=== PATIENT | male | born 1955 | race Caucasian/White ===

== ENCOUNTER 2017-05-02 15:57 | Emergency (ER) | payer BC ==
[~2017-05-02] VITALS: Ht 172.7 cm; Wt 117.1 kg
[2017-05-02 16:06] VITALS: TEMP 36.7; O2SAT 97; Ht 172.7 cm; Wt 117.1 kg
[2017-05-02] MEDS ORDERED: MULT-506 PO (16:49)
[2017-05-02] MEDS ORDERED: LISI40TA PO (16:49)
[2017-05-02] MEDS ORDERED: HYDR12.56 PO (16:49)
[2017-05-02] MEDS ORDERED: COEN100C7 PO (16:49)
[2017-05-02] MEDS ORDERED: IBUP-103 PO (16:49)
[2017-05-02] MEDS ORDERED: CARV25TA2 PO (16:49)
[2017-05-02] MEDS ORDERED: ASPI-461 PO (16:49)
[2017-05-02] MEDS ORDERED: KETOROLAC TROMETHAMINE 60 MG/2 ML VIAL IM STA (17:11)
[2017-05-02] MEDS ORDERED: FLEXERIL HOME PACK 10 MG VIAL PO ONE (17:15)
[2017-05-02] MEDS ORDERED: OXYC1TAB3 PO (17:15)
[2017-05-02] MEDS ORDERED: OXYCODONE IR HOME PACK PO ONE (17:15)
[2017-05-02] MEDS ORDERED: CYCL10TA6 PO (17:15)
[2017-05-02 17:33] VITALS: BP 138/79; PULSE 70
--- NOTE | 2017-05-02 23:57 | EMERGENCY ROOM VISIT NOTE ---
History First contact with patient: 16:34 Chief Complaint: BACK PAIN Stated Complaint: LOWER BACK PAIN,AGGRIVATED PREVIOUS INJURY History of Present Illness The patient is a 62 year old male who presents to the Emergency Room with complaints of lower back pain that he believes was aggravated by recent increased strain on his back from moving things from his residence. He denies any lower extremity weakness, footdrop, saddle anesthesias or bladder/bowel incontinence. He denies any abrupt onset of pain. He also denies any pain extending into the buttocks or down the legs. The patient has taken Aleve and Advil without relief. The patient reports that they are currently living in a rental property that is used over the weekends for football season. The patient reports that they have to move their belongings to a different area, and believes that he may have strained his back this past weekend. The patient does report a prior history of bilateral total hip arthroplasties. He reports that he did have problems with his back after undergoing physical therapy. Otherwise he denies any other prior history of back injuries or lumbar radiculitis. He has had no prior history of epidural steroid injections. The patient moved to [place] one month ago from [place], and has not time to establish a local family doctor. He currently rates his discomfort a 3 out of 10. Review of Systems 10 system review was performed and was negative except for pertinent positives and negatives as indicated in history of present illness Past Medical/Surgical History Medical Problems: (1) Heart disease (2) Hypertension Surgical Problems: (1) History of bilateral hip replacements Family History Unremarkable Social History Smoking Status: Former Smoker Alcohol Use: occasionally Marital Status: Occupation Status: employed Current/Historical Medications Scheduled Aspirin (Aspirin), 81 MG PO DAILY Carvedilol (Coreg), 25 MG PO BID Coenzyme Q10 (Ubidecarenone) (Coq10), 100 MG PO DAILY Hydrochlorothiazide (Hctz), 1 CAP PO DAILY Lisinopril (Zestril), 40 MG PO DAILY Multivitamin (Multivitamin), 1 TAB PO DAILY Scheduled PRN Cyclobenzaprine Hcl (Flexeril), 10 MG PO TID PRN for spasm Ibuprofen Tab (Advil), 400-600 MG PO Q6H PRN for Pain Oxycodone Ir (Roxicodone Ir), 1 TAB PO Q4H PRN for Pain Physical Exam Vital Signs Date Time Temp Pulse Resp B/P (MAP) Pulse Ox O2 Delivery O2 Flow Rate FiO2 05/02/17 17:33 70 16 138/79 05/02/17 16:06 36.7 65 20 137/91 97 Room Air Pain Rating (0-10): 3.0 Physical Exam CONSTITUTIONAL: Healthy and well nourished. Alert and oriented X 3 with positive affect. Patient does not appear in any acute distress. HEENT: Normocephalic, atraumatic. Pupils equal, round and reactive. NECK: Full active range of motion without discomfort. MUSCULOSKELETAL: Examination shows mild tenderness of the lumbar paraspinous muscles without any focal tenderness through the central lumbar spine. Negative logroll. Negative sitting straight leg raise. Ankle plantar/ dorsiflexion strength is 5 out of 5 and symmetric bilaterally. Pedal pulses are intact. INTEGUMENTARY: No rash or other significant dermatologic conditions noted. NEUROLOGIC: No focal neurologic deficits noted. Lower extremity's are sensory intact with deep tendon reflexes 2+ and symmetric bilaterally. Medical Decision & Procedures Medications Administered Medications (Trade) Dose Ordered Sig/Jermain Route Start Time Stop Time Status Last Admin Dose Admin Ketorolac Tromethamine (Toradol Inj) 60 mg NOW STAT IM 05/02/17 17:11 05/02/17 17:12 DC 05/02/17 17:25 60 MG Cyclobenzaprine HCl (FLEXERIL 10MG Home Pack) 1 homepack UD ONCE PO 05/02/17 17:15 05/02/17 17:16 DC 05/02/17 17:15 1 HOMEPACK Oxycodone HCl (Roxicodone Immediate Rel 5MG Home Pack) 1 homepack UD ONCE PO 05/02/17 17:15 05/02/17 17:16 DC 05/02/17 17:15 1 HOMEPACK ED Course Patient history and physical exam were performed. Nurse's notes were reviewed. Vital signs were reviewed and were normal. Clinical exam and history are consistent with an acute lumbar strain. The patient was provided home packs and prescriptions for Flexeril and OxyIR. He was encouraged to alternate ibuprofen and Tylenol for baseline pain relief. The patient was provided contact information for [facility] and the [facility] medicine group at his request. The patient was instructed to return to the emergency department for progressively worsening pain or other concerning symptoms such as lower extremity weakness, saddle anesthesias or bladder/bowel difficulties. The patient was happy with plan of care, voice understanding of all discharge instructions, and rated his pain a 3 out of 10 at the time of discharge. He was administered Toradol IM as he drove here and wanted to be able to drive home. Medical Decision [place] Drug Monitoring Program Search Results: patient reviewed within database, no issues identified Medication Reconcilliation Current Medication List: was personally reviewed by me Blood Pressure Screening Patient's blood pressure: Normal blood pressure Impression Primary Impression: Acute lumbar myofascial strain Departure Information Dispostion Home / Self-Care Condition GOOD Prescriptions Oxycodone Ir (Roxicodone Ir) 5 Mg Tab 1 TAB PO Q4H Y for Pain, #15 TAB For Initial Treatment Prov: Daniel Montgomery PA 05/02/17 Cyclobenzaprine Hcl (FLEXERIL) 10 Mg Tab 10 MG PO TID Y for spasm, #15 TAB Prov: Daniel Montgomery PA 05/02/17 Referrals Dontae Huerta D.O. Pro,Felipe Mata M.D. Forms HOME CARE DOCUMENTATION FORM, IMPORTANT VISIT INFORMATION Patient Instructions My [facility] [employer] Additional Instructions Intermittently apply heat to back. Avoid sitting for long periods of time or heavy lifting. Ibuprofen 800 mg and/or Tylenol 1000 mg every 8 hours. You may also alternate these medications for more effective pain relief: Ibuprofen --4 HRS--> Tylenol --4 HRS--> ibuprofen --4 HRS--> Tylenol .... Flexeril if needed for muscle spasm. OxyIR if needed for worse pain. Do not drink alcohol or drive while taking these medications. Call either the [facility] (Dr. Gonzales) or [facility] (Dr. Huerta) to schedule a follow-up appointment. Tell the office that you were referred from the emergency department and are new to the area. Problem Qualifiers Primary Impression: Acute lumbar myofascial strain Encounter type: initial encounter Qualified Codes: S39.012A - Strain of muscle, fascia and tendon of lower back, initial encounter
== END 2017-05-02 17:34 | disposition home or self-care (01) ==
LOC: C.EDB 15:58 → C.EDD 17:34
DX: S39.012A Strain of muscle, fascia and tendon of lower back, initial encounter (principal); X58.XXXA Exposure to other specified factors, initial encounter; I10 Essential (primary) hypertension; I51.9 Heart disease, unspecified; Z87.891 Personal history of nicotine dependence; Z79.82 Long term (current) use of aspirin

== ENCOUNTER → 2017-10-25 | Day surgery (SDC) | payer OTHER ==
[2017-10-15 08:07] VITALS: Ht 172.7 cm; Wt 122.7 kg
[~2017-10-25] VITALS: Ht 172.7 cm; Wt 122.7 kg
[~2017-10-25] MED LIST: ASPCH81X PO; CARV25TA2 PO; COEN100C7 PO; FENTANYL CITRATE INJ 50 MCG/1 ML 2 ML VIAL ONE; HYDR25TA4 PO; LIDOCAINE HCL 2% 2 ML VIAL (20MG/ML) ONE; LISI40TA PO; MIDAZOLAM HCL 1 MG/ML 2ML VIAL ONE; MULT-506 PO; OMEG10007 PO; PROPOFOL IV EMULSION 10 MG/ML 20 ML VIAL IV ONE; PRVC10 PO
--- NOTE | 2017-10-25 12:50 | Endo History and Physical ---
History & Physical Date of Service: Oct 25, 2017. Chief Complaint: Family history of colon cancer. Referring Physician: Dr. Harlan Altman History of Present Illness For colonoscopy Past Surgical History Hx Cardiac Surgery: No Hx Internal Defibrillator: No Hx Pacemaker: No Hx Abdominal Surgery: No Hx of Implantable Prosthesis: No Hx Post-Op Nausea and Vomiting: No Hx Cancer Surgery: No Hx Thoracic Surgery: No Hx Orthopedic: Yes (RT/LEFT ROSAURA, LEFT ANKLE FX REPAIR) Hx Urinary Tract Surgery: No Family History Colon CA Social History Smoking Status: Former Smoker Hx Substance Use: No Hx Alcohol Use: Yes (OCCASIONALLY) Allergies Coded Allergies: No Known Allergies (Verified , 10/25/17) Current Medications Reported Home Medications Medications Dose Route/Sig Max Daily Dose Days Date Category [place]-3 (Fish Oil) 1 Ea Cap 1 Cap PO DAILY 10/15/17 Reported Aspirin Chewable (Aspirin) 81 Mg Chew 81 Mg PO DAILY 10/15/17 Reported Pravastatin Sodium (Pravastatin Sod) 10 Mg Tab 1 Tab PO HS 10/15/17 Reported Zestril (Lisinopril) 40 Mg Tab 40 Mg PO HS 10/15/17 Reported Hctz (Hydrochlorothiazide) 25 Mg Tab 25 Mg PO QAM 10/15/17 Reported Coreg (Carvedilol) 25 Mg Tab 25 Mg PO BID 10/15/17 Reported Multivitamin (Multivitamins) Tab 1 Tab PO DAILY 05/02/17 Reported Coq10 (Coenzyme Q10 (Ubidecarenone)) 100 Mg Cap 100 Mg PO DAILY 05/02/17 Reported Vital Signs Weight (Kilograms): 122.73 Height (Feet): 5 Height (Inches): 8 Date Time Temp Pulse Resp B/P (MAP) Pulse Ox O2 Delivery O2 Flow Rate FiO2 10/25/17 12:40 36.6 65 16 127/83 (98) 97 Room Air Physical Exam General Appearance: + obese Respiratory/Chest: Respiratory effort: no dyspnea Cardiovascular: Heart Auscultation: RRR Abdomen: Inspection & Palpation: soft Assessment and Plan Fam Hx colon cancer for colonoscopy
--- NOTE | 2017-10-25 13:21 | Discharge Instructions ---
Endoscopy Patient Instructions Date / Procedure(s) Performed Oct 25, 2017. Colonoscopy Allergy Information Coded Allergies: No Known Allergies (Verified , 10/25/17) Discharge Date / Findings Oct 25, 2017. Diverticulosis, hemorrhoids Medication Instructions Stopped Medication(s): Patient was told to stop his fish oil. Restart Stopped Medication(s): resume meds Reported Home Medications Medications Dose Route/Sig Max Daily Dose Days Date Category [place]-3 (Fish Oil) 1 Ea Cap 1 Cap PO DAILY 10/15/17 Reported Aspirin Chewable (Aspirin) 81 Mg Chew 81 Mg PO DAILY 10/15/17 Reported Pravastatin Sodium (Pravastatin Sod) 10 Mg Tab 1 Tab PO HS 10/15/17 Reported Zestril (Lisinopril) 40 Mg Tab 40 Mg PO HS 10/15/17 Reported Hctz (Hydrochlorothiazide) 25 Mg Tab 25 Mg PO QAM 10/15/17 Reported Coreg (Carvedilol) 25 Mg Tab 25 Mg PO BID 10/15/17 Reported Multivitamin (Multivitamins) Tab 1 Tab PO DAILY 05/02/17 Reported Coq10 (Coenzyme Q10 (Ubidecarenone)) 100 Mg Cap 100 Mg PO DAILY 05/02/17 Reported Provider Instructions Activity Restrictions - No exercising or heavy lifting for 24 hours. - Do not drink alcohol the day of the procedure. - Do not drive a car or operate machinery until the day after the procedure. - Do not make any important decisions or sign important papers in 24 hours after the procedure. Following Day: - Return to full activity which may include returning to work/school. Diet Start your diet with liquids and light foods (jello, soup, juice, toast). Then eat your usual diet if not nauseated. Treatment For Common After Affects For mild abdominal pain, bloating, or excessive gas: - Rest - Eat lightly - Lie on right side Follow-Up Information Follow-up with Dr. Harlan Altman as scheduled Anesthesia Information What You Should Know You have had a procedure that required some medicine to reduce anxiety and discomfort. This treatment is called moderate sedation. After receiving the treatment, you may be sleepy, but you will be able to breathe on your own. The effects of the treatment may last for several hours. Follow these instructions along with Activity/Diet recommendations noted above: * Do NOT do anything where dizziness or clumsiness would be dangerous. * Rest quietly at home today, then you can be up and about tomorrow. * Have a responsible person stay with you the rest of today. * You may have had an I.V. today. If so, you may take the dressing off later today. Recommendations Call your doctor if: * Trouble breathing * Continuous vomiting for more than 24 hours * Temperature above 101 degrees * Severe abdominal pain or bloating * Pain not relieved by pain medicine ordered * There is increased drainage or redness from any incision * A large amount of rectal bleeding greater than 2-3 tablespoons. (If you had a polyp/s removed or have hemorrhoids, a small amount of blood - from the rectum is to be expected.) * You have any unanswered questions or concerns. IN THE EVENT OF A SERIOUS EMERGENCY, GO TO THE NEAREST EMERGENCY ROOM Your discharge instructions were prepared by provider Jose Cazares. Patient Instructions Signature Page Sharad James Patient (or Guardian) Signature/Date: I have read and understand the instructions given to me by my caregivers. Caregiver/RN/Doctor Signature/Date: The above-named patient and/or guardian has received patient instructions on this date. + Original Patient Signature Page (only) stays with chart. Please make copy for patient.
--- NOTE | 2017-10-25 13:24 | GI REPORT ---
Procedure Date: 10/25/2017 1:01 PM Procedure: Colonoscopy Indications: Family history of colon cancer in a first-degree relative Medicines: Fentanyl 100 micrograms IV, Midazolam 2 mg IV, Propofol total dose 80 mg IV, Lidocaine 40 mg IV Complications: No immediate complications. Estimated Blood Loss: Estimated blood loss: none. Procedure: Pre-Anesthesia Assessment: - Prior to the procedure, a History and Physical was performed, and patient medications, allergies and sensitivities were reviewed. The patient's tolerance of previous anesthesia was reviewed. - The risks and benefits of the procedure and the sedation options and risks were discussed with the patient. All questions were answered and informed consent was obtained. After I obtained informed consent, the scope was passed under direct vision. Throughout the procedure, the patient's blood pressure, pulse, and oxygen saturations were monitored continuously. The scope was introduced through the anus and advanced to the cecum, identified by appendiceal orifice and ileocecal valve. The colonoscopy was performed without difficulty. The patient tolerated the procedure well. The quality of the bowel preparation was good. Findings: Non-bleeding internal hemorrhoids were found during endoscopy. The hemorrhoids were mild. Many diverticula were found in the sigmoid colon, transverse colon and ascending colon. Impression: - Non-bleeding internal hemorrhoids. - Diverticulosis in the sigmoid colon, in the transverse colon and in the ascending colon. - No specimens collected. Recommendation: - Discharge patient to home (ambulatory). - Continue present medications. - Repeat colonoscopy in 5 years for surveillance. - Return to primary care physician PRN. Jose Cazares M.D. Jose Cazares MD 10/25/2017 1:24:12 PM This report has been signed electronically. Note Initiated On: 10/25/2017 1:01 PM I attest to the content of the Intraoperative Record and orders documented therein, exceptions below
--- NOTE | 2017-10-25 13:58 | Anesthesiology Progress Note ---
Anesthesia Post Op Note Date & Time Oct 25, 2017 at 13:58 Vital Signs Pain Intensity: 0 Vital Signs Past 12 Hours Date Time Temp Pulse Resp B/P (MAP) Pulse Ox O2 Delivery O2 Flow Rate FiO2 10/25/17 13:42 65 18 107/67 (80) 96 Room Air 10/25/17 13:26 69 18 117/77 (90) 95 Room Air 10/25/17 12:40 36.6 65 16 127/83 (98) 97 Room Air Notes Mental Status: alert / awake / arousable, participated in evaluation Pt Amnestic to Procedure: Yes Nausea / Vomiting: adequately controlled Pain: adequately controlled Airway Patency, RR, SpO2: stable & adequate BP & HR: stable & adequate Hydration State: stable & adequate Anesthetic Complications: no major complications apparent
[2017-10-25 14:00] VITALS: BP 121/69; PULSE 61; O2SAT 96
== END | disposition home or self-care (01) ==
LOC: C.GI 12:18
PROVIDERS: ATTEND Internal Medicine Gastroenterology
DX: Z12.11 Encounter for screening for malignant neoplasm of colon (principal); K57.30 Diverticulosis of large intestine without perforation or abscess without bleeding; K64.8 Other hemorrhoids; Z80.0 Family history of malignant neoplasm of digestive organs; Z96.643 Presence of artificial hip joint, bilateral; Z87.891 Personal history of nicotine dependence; Z79.82 Long term (current) use of aspirin; E66.9 Obesity, unspecified

== ENCOUNTER 2017-12-17 21:39 | Emergency (ER) | payer OTHER ==
[~2017-12-17] VITALS: Ht 172.7 cm; Wt 124.5 kg
[~2017-12-17 21:39] MED LIST changes: -FENTANYL CITRATE INJ 50 MCG/1 ML 2 ML VIAL ONE; -LIDOCAINE HCL 2% 2 ML VIAL (20MG/ML) ONE; -MIDAZOLAM HCL 1 MG/ML 2ML VIAL ONE; -PROPOFOL IV EMULSION 10 MG/ML 20 ML VIAL IV ONE
[2017-12-17 21:45] VITALS: TEMP 36.8; Ht 172.7 cm; Wt 124.5 kg
[2017-12-17] MEDS ORDERED: KETOROLAC TROMETHAMINE 60 MG/2 ML VIAL IM STA (22:24)
[2017-12-17] MEDS ORDERED: CYCL10TA6 PO (22:28)
[2017-12-17] MEDS ORDERED: TRAM-10 PO (22:28)
[2017-12-17] MEDS ORDERED: FLEXERIL HOME PACK 10 MG VIAL PO ONE (22:30)
[2017-12-17] MEDS ORDERED: TRAMADOL HCL 50 MG HOME PACK PO ONE (22:30)
[2017-12-17 22:53] VITALS: BP 141/87; PULSE 85; O2SAT 95
--- NOTE | 2017-12-18 00:42 | EMERGENCY ROOM VISIT NOTE ---
History First contact with patient: 22:16 Chief Complaint: BACK PAIN Stated Complaint: BACK PAIN- LOWER LEFT History of Present Illness The patient is a 62 year old male who presents to the Emergency Room with complaints of left middle to lower back pain. The patient reports a prior history of back strains, and injured his back while exercising last evening. The patient denies any recent falls. He currently denies any pain extending into the buttocks or down the legs. He also denies any bladder or bowel difficulties, saddle anesthesias or lower extremity weakness. He rates his discomfort an 8 out of 10. Review of Systems 10 system review was performed and was negative except for pertinent positives and negatives as indicated in history of present illness Past Medical/Surgical History Medical Problems: (1) Heart disease (2) Hypertension Surgical Problems: (1) History of bilateral hip replacements Family History FH: diabetes mellitus FH: heart disease FH: hypertension Social History Smoking Status: Never Smoker Alcohol Use: occasionally Marital Status: Occupation Status: employed Current/Historical Medications Scheduled Aspirin (Aspirin Chewable), 81 MG PO DAILY Carvedilol (Coreg), 25 MG PO BID Coenzyme Q10 (Ubidecarenone) (Coq10), 100 MG PO DAILY Fish Oil ([place]-3), 1 CAP PO DAILY Hydrochlorothiazide (Hctz), 25 MG PO QAM Lisinopril (Zestril), 40 MG PO HS Multivitamin (Multivitamin), 1 TAB PO DAILY Pravastatin Sod (Pravastatin Sodium), 1 TAB PO HS Scheduled PRN Cyclobenzaprine Hcl (Flexeril), 10 MG PO TID PRN for spasm Tramadol (Ultram), 1-2 TAB PO Q4H PRN for Pain Physical Exam Vital Signs Date Time Temp Pulse Resp B/P (MAP) Pulse Ox O2 Delivery O2 Flow Rate FiO2 12/17/17 22:53 85 20 141/87 95 Room Air 12/17/17 21:45 36.8 89 18 142/95 93 Room Air Physical Exam CONSTITUTIONAL: Healthy and well nourished. Alert and oriented X 3 with positive affect. Patient appears in mild discomfort. HEENT: Normocephalic, atraumatic. Pupils equal, round and reactive. NECK: Full active range of motion without discomfort. RESPIRATORY: Clear to auscultation bilaterally with no wheezing, crackles, rhonchi or stridor. CARDIOVASCULAR: Regular rate and rhythm with no murmurs, rubs or gallops. GASTROINTESTINAL: Bowel sounds present in all quadrants. Soft and nontender to palpation. MUSCULOSKELETAL: Examination shows tenderness to palpation through the lower thoracic and upper lumbar left paraspinous muscle. No obvious palpable spasm. Patient has no other tenderness to palpation through the central thoracolumbar spine or right sided musculature. No tenderness to palpation of the ribs. INTEGUMENTARY: No rash or other significant dermatologic conditions noted. NEUROLOGIC: No focal neurologic deficits noted. Medical Decision & Procedures Medications Administered Medications (Trade) Dose Ordered Sig/Jermain Route Start Time Stop Time Status Last Admin Dose Admin Ketorolac Tromethamine (Toradol Inj) 60 mg NOW STAT IM 12/17/17 22:24 12/17/17 22:26 DC 12/17/17 22:43 60 MG Cyclobenzaprine HCl (FLEXERIL 10MG Home Pack) 1 homepack UD ONCE PO 12/17/17 22:30 12/17/17 22:31 DC 12/17/17 22:42 1 HOMEPACK Tramadol HCl (Ultram Home Pack) 1 homepack UD ONCE PO 12/17/17 22:30 12/17/17 22:31 DC 12/17/17 22:42 1 HOMEPACK ED Course Patient history and physical exam were performed. Nurse's notes were reviewed. Vital signs were reviewed, showing an elevated blood pressure 142/95. History and physical exam are most consistent with a back strain. The patient was encouraged to avoid sitting for long periods of time or other significant physical activities. He was encouraged to intermittently apply ice to the back , then moist heat as needed. He was encouraged alternate ibuprofen and Tylenol for baseline pain relief. The patient was dispensed home packs and provided prescriptions for Ultram and Flexeril. The patient denies any prior history of seizures. He was encouraged to follow-up with his PCP if symptoms are not improving within the next few days. Return to the emergency department for any significantly worsening pain, saddle anesthesias, urinary/bowel complications or foot drop. The patient was administered Toradol 60 mg IM as he drove here. The patient was happy with plan of care, voiced understanding of all discharge instructions, and rated his discomfort a 6 out of 10 at the time of discharge, which was shortly after his IM Toradol. Medical Decision [place] Drug Monitoring [place] Search Results: patient reviewed within database, no issues identified Medication Reconcilliation Current Medication List: was personally reviewed by me Blood Pressure Screening Patient's blood pressure: Elevated blood pressure Blood pressure disposition: Elevated BP felt to be situational, Did not require urgent referral Impression Primary Impression: Acute lumbar myofascial strain Departure Information Dispostion Home / Self-Care Condition GOOD Prescriptions Tramadol (Ultram) 50 Mg Tab 1-2 TAB PO Q4H Y for Pain, #15 TAB For Initial Treatment Prov: Daniel Montgomery PA 12/17/17 Cyclobenzaprine Hcl (FLEXERIL) 10 Mg Tab 10 MG PO TID Y for spasm, #15 TAB Prov: Daniel Montgomery PA 12/17/17 Referrals Harlan Altman M.D. (PCP) Forms HOME CARE DOCUMENTATION FORM, IMPORTANT VISIT INFORMATION Patient Instructions My [facility] Additional Instructions Intermittently apply ice for the next 24 hours, then moist heat as needed. Ibuprofen 800 mg and/or Tylenol 1000 mg every 8 hours. You may also alternate these medications for more effective pain relief: Ibuprofen --4 HRS--> Tylenol --4 HRS--> ibuprofen --4 HRS--> Tylenol .... Take Flexeril as needed for muscle spasms. Take Ultram if needed for additional pain relief. Do not drink alcohol or drive while taking these medications. Follow-up with your family doctor if symptoms are not improving within the next 3-5 days. Return to the emergency department for any significantly worsening pain, bladder /bowel complications, numbness of the inner thighs/pubic region or profound lower extremity weakness. Problem Qualifiers Primary Impression: Acute lumbar myofascial strain Encounter type: initial encounter Qualified Codes: S39.012A - Strain of muscle, fascia and tendon of lower back, initial encounter
== END 2017-12-17 22:48 | disposition home or self-care (01) ==
LOC: C.EDB 21:40 → C.EDD 22:48
DX: S39.012A Strain of muscle, fascia and tendon of lower back, initial encounter (principal); X58.XXXA Exposure to other specified factors, initial encounter; I11.9 Hypertensive heart disease without heart failure; Z79.82 Long term (current) use of aspirin

== ENCOUNTER 2019-04-26 08:11 | Observation (INO) ==
--- NOTE | 2019-04-26 09:25 | Pre Anesthesia Assessment ---
Date of Service April 26, 2019 Pre Sedation Assessment Vital Signs Temp Pulse Resp BP Pulse Ox 04/26/19 08:20 36.6 C 66 20 123/86 98 Cardiovascular RRR, no murmur, no edema Respiratory normal respiratory effort, lungs clear to auscultation Pre-Sedation Airway Assessment Smoking Status: Former smoker Hx Sleep Apnea: Yes Short, Thick Neck: No Thyromental Distance: > or= 3.5 Finger Breadths Oral Cavity: + WNL Mallampati Class: IV ASA: ASA3 NPO Status Date of Last Intake of Fluids: 04/26/19 Time of Last Intake of Fluids: 23:00 Date of Last Intake of Solid Food: 04/25/19 Time of Last Intake of Solid Foods: 20:00 Procedure Planning Contraindications for Sedation: none Current Medications Reviewed: Yes Notes The planned sedation has been discussed with the patient. Informed Consent was obtained. I have identified the patient, determined the appropriateness of sedation and have assessed the patient immediately prior to the procedure. All medicine(s) and interventions are by my order.
--- NOTE | 2019-04-26 09:30 | History & Physical Report ---
Date of Service April 26, 2019 Assessment & Plan (1) NICM (nonischemic cardiomyopathy): pt for elective ICD; rediscussed the procedure with the patient today with the possible risks such as heart attach, stroke, , arrhythmia, injury to lungs, heart chambers and blood vessels, infection and bleeding. consent obtained (2) JOSE DE JESUS (obstructive sleep apnea): (3) Chronic systolic congestive heart failure, NYHA class 2: (4) Morbid obesity: History of Present Illness Chief Complaint: pt presents for elective ICD implant due to NICM Primary Care Provider: Felipe Rush MD Pt denies any fevers, chills, chest pains, SOB, palpitations Allergies Allergy/AdvReac Type Severity Reaction Status Date / Time No Known Allergies Allergy Verified 10/25/17 12:27 Home Medications Home Medications Medication Instructions Recorded Confirmed Type COENZYME Q10 (UBIDECARENONE) 100 mg PO DAILY #0 05/02/17 04/26/19 History (COQ10) Multivitamin 1 tab PO DAILY #0 tab 05/02/17 04/26/19 History ASPIRIN (ASPIRIN CHEWABLE) 81 mg PO DAILY #0 10/15/17 04/26/19 History CARVEDILOL (COREG) 25 mg PO BID #0 tab 10/15/17 04/26/19 History Fish Oil (Caspar-3) 1 cap PO DAILY #0 cap 10/15/17 04/26/19 History HYDROCHLOROTHIAZIDE (HCTZ) 12.5 mg PO QAM #0 tab 10/15/17 04/26/19 History sacubitril-valsartan [Entresto] 1 tab PO BID 04/26/19 04/26/19 History spironolactone 25 mg PO DAILY 04/26/19 04/26/19 History Past Med/Surg History Medical History CAD (coronary artery disease) FH: bilateral hip replacements HTN (hypertension) Hyperlipidemia NICM (nonischemic cardiomyopathy) JOSE DE JESUS (obstructive sleep apnea) Family History Mother Stroke Father Coronary heart disease Social History Current Living Situation: Spouse Feels Safe at Home: Yes Safety Concerns: Feels Safe At This Time Smoking Status: Former smoker Hx Alcohol Use: Yes Alcohol type: beer Hx Substance Use: No Review of Systems All systems reviewed & are unremarkable except as noted in HPI & below Physical Exam Physical Exam: aaox3, NAD NC/AT, EOMI Supple No JVD Nrl S1/S2, No murmur CTA b/l no w/r/r soft nt/nd no LE edema b/l skin intact no focal deficits ENMT: Mallampati Class: IV Respiratory: normal respiratory effort, lungs clear to auscultation Cardiovascular: RRR, no murmur, no edema Results & Data Vital Signs (Past 12 Hours) Vital Signs Temp Pulse Resp BP Pulse Ox 04/26/19 08:20 36.6 C 66 20 123/86 98
[2019-04-26] MEDS ORDERED: BACITRACIN INJ 50,000 UNIT VIAL ONE (09:32)
[2019-04-26] MEDS ORDERED: BUPIVACAINE 0.5 % 5 MG/1 ML PF 10ML VIAL ONE (09:37)
[2019-04-26] MEDS ORDERED: LIDOCAINE HCL 1% 20 ML VIAL ONE (09:37)
[2019-04-26] MEDS ORDERED: BUPIVACAINE 0.25% 30 ML VIAL ONE (09:38)
[2019-04-26] MEDS ORDERED: MIDAZOLAM HCL 5 MG/ML 1 ML VIAL ONE (09:56)
[2019-04-26] MEDS ORDERED: CEFAZOLIN 250 MG/ML 1 GM VIAL ONE (09:56)
[2019-04-26] MEDS ORDERED: fentaNYL citrate 100 MCG/2 ML VIAL ONE ×2 (09:56→10:42)
[2019-04-26] MEDS ORDERED: ACETAMINOPHEN 325 MG TAB PO PRN (11:21)
--- NOTE | 2019-04-26 11:21 | Operative Report ---
Post Operative Report Pre & Post Diagnosis Pre: NICM Post: Same Operation Date: 04/26/19 09:00 <No data on this case meets the specified criteria> Procedure Operation Date: 04/26/19 09:00 Actual Procedures p ICD Insertion Single or Dual - Eva Guevara DO Surgeon vEa Guevara, Nursing Home Assistant Administrator none Estimated Blood Loss 30 Findings Consistent with Post-Op Diagnosis Specimens none Description of Procedure see official report I attest to the content of the Intraoperative Record and any orders documented therein. Any exceptions are noted below.
--- NOTE | 2019-04-26 11:21 | Post Anesthesia Assessment ---
Date of Service April 26, 2019 Post Sedation Assessment Vital Signs Temp Pulse Resp BP Pulse Ox 04/26/19 08:20 36.6 C 66 20 123/86 98 Recovery Score Activity: Moves 4 extremities Respiration: Deep Breath/Cough Circulation: +/-20% PreAnes Value Consciousness: Fully Awake Oxygen Saturation: > 92% On Room Air Discharge Sedation Level of Care: Fast Track Phase II Post Sedation Plan On clinical assessment, the patient appears to have tolerated the sedation without complications. Patient is recovering as anticipated. Patient will continue to be monitored by nursing and may be discharged when sedation discharge criteria are met per below protocol. Upon Completions of procedure and additional 15 minutes continue every 5 minute vital signs and the P.A.R. score; then discharge to a Phase I or [facility] per the following guidelines: * Discharge Patient to appropriate Phase II area if PAR is 8 or greater or return to pre- procedure baseline. The post - procedure orders will be as directed. * If PAR score is less than 8 or not return to pre-procedure baseline then patient will follow Phase I monitoring till PAR is reached for Phase II. The Phase I may be done in procedure room or may call to secure a Phase I area. * If naloxone or flumazenil are used for reversal, hold in Phase I for continued monitoring from when last reversal dose was given for a minimum of 60 minutes or longer pending the nurse and/or physician discretion of patient condition before discharge to Phase II. Please call the Sedation Physician to re-evaluate and complete post-note for discharge to Phase II area. Do NOT discharge from procedure sedation or Phase 1 until post- sedation evaluation note is complete by procedure /sedation MD Sedation Discharge Instructions to be given to the patient at discharge to home.
--- NOTE | 2019-04-26 11:28 | Discharge Summary ---
Date of Service April 26, 2019 Admission HPI Per Admitting Provider Pt denies any fevers, chills, chest pains, SOB, palpitations Admission Exam Per Admitting Provider aaox3, NAD NC/AT, EOMI Supple No JVD Nrl S1/S2, No murmur CTA b/l no w/r/r soft nt/nd no LE edema b/l skin intact no focal deficits Principal Diagnosis NICM s/p ICD implant Discharge Exam aaox3, NAD NC/AT, EOMI Supple No JVD Nrl S1/S2, No murmur CTA b/l no w/r/r soft nt/nd no LE edema b/l skin intact no focal deficits left pectoral incision intact, no hematoma mild ecchymosis ENMT Mallampati Class: IV Respiratory normal respiratory effort, lungs clear to auscultation Cardiovascular RRR, no murmur, no edema Discharge Data Allergies Allergy/AdvReac Type Severity Reaction Status Date / Time No Known Allergies Allergy Verified 10/25/17 12:27 Procedures Performed Operation Date: 04/26/19 09:00 Actual Procedures p ICD Insertion Single or Dual - Eva Guevara DO Ordered Studies CXR: No PTX, lead in position ECG: SR ICD Interrogation 04/27/2019:Normal function and stable lead testing since implant 04/26/19 06:30 EP Lab Images for PACS ONCE 04/26/19 09:38 CL Cath Imgs for PACS use only Stat CL Cath Imgs for PACS use only Stat Hospital Course (1) NICM (nonischemic cardiomyopathy): pt admitted for elective ICD due to NICM. He underwent procedure without any complications; monitored overnight and discharged home. (2) JOSE DE JESUS (obstructive sleep apnea): (3) Chronic systolic congestive heart failure, NYHA class 2: (4) Morbid obesity: Total Time Total Time Spent Total Time Spent (In Minutes): 30 Total Time Includes: Examination of the Patient, Discharge Planning, Medication Reconciliation and Other Discharge Plan Discharge Items Patient Disposition: Home - Self-Care Reason For Visit: NICM Discharge Diagnosis: NICM s/p ICD Condition: Good Discharge Goals: Improve function Activity: As commented below Activity Comment: do not lift the left elbow over the left shoulder for 1 month Lifting: No more than 10 pounds Lifting Comment: do not lift more than 10 pounds with the left arm for 2 weeks Bathing: Keep incision dry Bathing Comment: can shower saturday 04/28; let water run over the incision do not scrub it Sexual Activity: After two weeks Driving/Machine Use: Resume 1 day after discharge Non-emergency contact: Wind Up Operator Call non-emergency contact if: you have any medication questions Follow-up/Referrals: Felipe Rush MD [Primary Care Provider] - Diet: Heart Healthy Addtl Provider Instructions: device and wound check at [facility] 05/04 at 9am if you notice any swelling or concerns at the incision site call my office immediately Prescriptions: Continued COENZYME Q10 (UBIDECARENONE) (COQ10) 100 MG capsule 100 mg PO DAILY Qty: 0 RF: 0 Multivitamin tablet 1 tab PO DAILY Qty: 0 RF: 0 ASPIRIN (ASPIRIN CHEWABLE) 81 MG CHEWABLE TAB 81 mg PO DAILY Qty: 0 RF: 0 CARVEDILOL (COREG) 25 MG tablet 25 mg PO BID Qty: 0 RF: 0 Fish Oil (Depue-3) 1 EA capsule 1 cap PO DAILY Qty: 0 RF: 0 HYDROCHLOROTHIAZIDE (HCTZ) 25 MG tablet 12.5 mg PO QAM Qty: 0 RF: 0 Entresto 24-26 mg Tablet 1 tab PO BID RF: 0 spironolactone 25 mg Tablet 25 mg PO DAILY RF: 0 Stand-Alone Forms: [facility] Discharge Orders: Discharge Order (Routine); Ordered 04/27/19 Ordered By: Eva Guevara Admission Data Admit Date/Time: 04/26/19 10:34 Attending Provider: Eva Guevara Admit Provider: Eva Guevara Primary Care Provider: Felipe Rush Service: Telemetry
--- NOTE | 2019-04-26 14:30 | Operative Report ---
DATE OF OPERATION: 04/26/2019 PREOPERATIVE DIAGNOSES: Nonischemic cardiomyopathy. POSTOPERATIVE DIAGNOSIS: Nonischemic cardiomyopathy. PROCEDURE: Single chamber rate responsive implantable cardiac defibrillator under fluoroscopic guidance. SURGEON: Eva Guevara DO THERMAL MOLDER: None. ANESTHESIA: Monitored conscious sedation administered under my supervision by Shasta Bueno. Start time 10:05, end time 11:18. Total of 5 mg of Versed, 175 mcg of fentanyl. INTRAVENOUS FLUIDS: 35 mL. URINE OUTPUT: Not applicable. SPECIMENS: None. FINDINGS: See below. DRAINS: None. ANTIBIOTICS: 3 grams of Ancef. INDICATIONS: This is a 64-year-old gentleman with past medical history for nonischemic cardiomyopathy, initially diagnosed in 2012 in [place] with an ejection fraction of 15%. It did improve reportedly to 45% in 2013, but then was back down to 35% in 2017 and no further to 25% in 2019, statin intolerance, morbid obesity, obstructive sleep apnea probably not on any sleep BiPAP, chronic systolic heart failure, [place] Heart Association class 2, sinus bradycardia, asymptomatic, so no RA lead at this time. CONSENT: Consent was obtained prior to the patient going into electrophysiology lab. The patient was informed of the risks, benefits, alternatives to the procedure. Risks include but not limited to sudden cardiac , cardiac arrhythmias, cerebrovascular accident, myocardial infarction, injury to the blood vessels, chamber of the heart, lung, bleeding, and infection. The patient understood these risks and agreed to the procedure as planned. Informed consent was obtained. DESCRIPTION OF THE PROCEDURE: The patient was brought into electrophysiology lab in a fasting state. He was connected to continuous monitoring tech. A timeout was performed to ensure patient identity and procedure correctly. The patient was prepped and draped over the left infraclavicular space in normal surgical standard fashion. Monitored conscious sedation given throughout the procedure for patient's comfort level. [place] precautions were maintained throughout the procedure. A 10 mL of 1% lidocaine, bupivacaine mixture were given in the left deltopectoral groove. Incision was made in left deltopectoral groove. Blunt dissection was performed down to identify the cephalic vein. Cephalic vein was identified and isolated using 0 silk ties. The vein was nicked with 11 blade and a guidewire was inserted without any resistance. A 9.5-Egyptian sheath was inserted over the guidewire without any resistance. The guidewire and dilator removed. The right ventricular lead was then advanced into right ventricle and positioned into the right ventricular apex. Of note, I did have to reposition it a few times till we finally got adequate sensing and pacing and no ectopy. He was having a lot of ventricular ectopy with certain different areas of placement. I think I only had to retract the screw 1 or 2 times. Ultimately, the 9.5-Egyptian sheath was peeled away and lead was fixated to pectoralis muscle using 0 silk suture. Additional 10 mL of 1% lidocaine were given in the pectoralis fascia. Then using blunt dissection over the pectoralis muscle within the pectoralis fascia, a defibrillator pocket was created. The pocket was flushed with copious amounts of bacitracin saline wash and inspected for hemostasis. The defibrillator was attached to the lead making sure that the pins were in appropriate position, passed set screws and set screws were all tightened. Defibrillator was then placed in the pocket, making sure that the leads were lying flat beneath the device. A stay stitch using 0 silk suture was used to secure the device to pectoralis muscle. The incision was then closed in 3-layer fashion using a 2-0 Vicryl interrupted suture followed by 3-0 Vicryl interrupted suture followed by a 4-0 Monocryl running stitch and Dermabond was applied followed then by a Telfa and micropore tape. EQUIPMENT: 1. The generator is a Telepath AF MRI VR SureScan [id number], serial number [id number]. 2. Right ventricular lead, Medtronic 6935-62 cm, serial number [id number]. INTRAOPERATIVE TESTIN. Right ventricular lead: R-wave 8.6 millivolts, impedance 666 ohms, threshold 0.6 volts at 0.5 milliseconds. FINAL MEASUREMENTS THROUGH THE DEVICE: 1. Right R-wave 10.5 millivolts, impedance 513 ohms, threshold 0.5 volts at 0.4 milliseconds. 2. The RV coil was 75 ohms. FINAL PARAMETERS: VVI 40, right ventricular amplitude 3.5 volts, pulse width 0.4 milliseconds, sensitivity 0.3 millivolts. A monitor zone at 140 beats per minute for 32 detection intervals, VT zone 167 beats per minute for 16 detection intervals and a VF zone at 200 beats per minute for 30/40 detection intervals. IMPRESSION: Successful implantation of single chamber implantable cardiac defibrillator secondary to nonischemic cardiomyopathy. PLAN: Monitor patient overnight, 12-lead ECG, chest x-ray. He is not allowed to lift left elbow or left shoulder for 1 month. He cannot lift more than 10 pounds with the left arm for 2 weeks. He can shower in 2 days, let water run over the incision, do not scrub it. He should follow up in our [facility] office for device and wound check in 1 week's time and continue his home medications. I attest to the content of the Intraoperative Record and any orders documented therein. Any exception s are noted below.
[2019-04-26] MEDS: OXYCODONE/ACETAMINOPHEN 5mg/325mg TAB PO PRN ×2 (16:34→21:24)
[2019-04-26] MEDS: CARVEDILOL 25 MG TAB PO SCH (20:31)
[2019-04-26] MEDS: SACUBITRIL-VALSARTAN 24-26 MG TAB PO SCH (20:31)
[2019-04-27] MEDS: OXYCODONE/ACETAMINOPHEN 5mg/325mg TAB PO PRN (03:46)
[2019-04-27] MEDS: CARVEDILOL 25 MG TAB PO SCH (07:48)
[2019-04-27] MEDS: SACUBITRIL-VALSARTAN 24-26 MG TAB PO SCH (07:49)
--- NOTE | 2019-04-27 08:00 | XRay Report ---
TWO VIEW CHEST CLINICAL HISTORY: Status post pacemaker implantation. FINDINGS: PA and lateral chest radiographs are obtained. No prior studies are available for compariso n at the time of dictation. A single lead cardiac AICD has been placed. The lead projects over the ri ght ventricle. The heart is enlarged. The pulmonary vasculature is noncongested. There is mild scarri ng/atelectasis at the left lung base. The lungs and pleural spaces are otherwise clear. There is no p neumothorax. The skeletal structures are osteopenic. The bony thorax appears intact. IMPRESSION: 1. A single lead cardiac AICD has been placed as above. No pneumothorax is seen post procedure. 2. Cardiomegaly without radiographic evidence of congestive failure. 3. No airspace consolidation or pleural effusion is identified. Electronically signed by: Kostas Villeda M.D. 04/27/2019 7:59 AM
[2019-04-27] MEDS ORDERED: SPIRONOLACTONE 25 MG TAB PO SCH (09:00)
[2019-04-27] MEDS ORDERED: NON-FORMULARY MEDICATION (Coenzyme Q10 (Ubidecarenone) (Coq10) 100 MG) PO SCH (09:00)
[2019-04-27] MEDS ORDERED: OMEGA-3 (PURIFIED FISH OIL) 1 GM CAP PO SCH (09:00)
[2019-04-27] MEDS ORDERED: MULTIVITAMIN TAB PO SCH (09:00)
[2019-04-27] MEDS ORDERED: hydroCHLOROthiazide 25 MG TAB PO SCH (09:00)
[2019-04-27] MEDS ORDERED: ASPIRIN 81 MG CHEW PO SCH (09:00)
== END 2019-04-27 09:23 | disposition home or self-care (01) ==
LOC: 2E 08:11 → EP 08:11
PROC: EPB.ICD (2019-04-26 09:00)
DX: E66.01 Morbid (severe) obesity due to excess calories; Z79.899 Other long term (current) drug therapy; Z96.643 Presence of artificial hip joint, bilateral; I42.9 Cardiomyopathy, unspecified; I50.22 Chronic systolic (congestive) heart failure; G47.33 Obstructive sleep apnea (adult) (pediatric); Z79.82 Long term (current) use of aspirin; Z82.3 Family history of stroke; E78.5 Hyperlipidemia, unspecified; I25.10 Atherosclerotic heart disease of native coronary artery without angina pectoris

== ENCOUNTER 2021-05-14 20:36 | Inpatient (IN) ==
[2021-05-14 21:31] LABS: Basophils # (auto) 0.05 K/uL (0-0.2); Basophils % (auto) 0.6 %; Eosinophils # (auto) 0.15 K/uL (0-0.5); Eosinophils % (auto) 1.7 %; Hematocrit (blood only) 39.4 % (42-52); Hemoglobin 12.5 g/dL (14.0-18.0); Immature Granulocytes # (auto) 0.02 K/uL (0.00-0.02); Immature Granulocytes % (auto) 0.2 %; Lymphocytes # (auto) 1.37 K/uL (1.2-3.4); Lymphocytes % (auto) 15.5 %; Mean Corpuscular Hemoglobin 27.2 pg (25-34); Mean Corpuscular Hgb Conc 31.7 g/dL (32-36); Mean Corpuscular Volume 85.8 fL (80-100); Mean Platelet Volume 11.1 fL (7.4-10.4); Monocytes # (auto) 0.69 K/uL (0.11-0.59); Monocytes % (auto) 7.8 %; Neutrophils # (auto) 6.55 K/uL (1.4-6.5); Neutrophils % (auto) 74.2 %; Platelet Count 260 K/uL (130-400); RDW Coefficient of Variation 16.6 % (11.5-14.5); RDW Standard Deviation 51.1 fL (36.4-46.3); Red Blood Count 4.59 M/uL (4.7-6.1); White Blood Count 8.83 K/uL (4.8-10.8)
[2021-05-14 21:44] LABS: INR 1.2 (0.9-1.1); Partial Thromboplastin Ratio 1.1; Partial Thromboplastin Time 28.5 Seconds (21.0-31.0); Prothrombin Time 11.7 Seconds (9.0-12.0)
[2021-05-14 21:46] LABS: Alanine Aminotransferase 48 U/L (12-78); Albumin Level 3.1 gm/dl (3.4-5.0); Aspartate Aminotransferase 21 U/L (15-37); BUN Creatinine Ratio 23.4 (10-20); Blood Urea Nitrogen 33 mg/dl (7-18); Carbon Dioxide 22 mmol/L (21-32); Chloride 105 mmol/L (98-107); Est GFR (African American) 59.6 ml/min; Est GFR (Non-African American) 51.5 ml/min; Glucose 213 mg/dl (70-99); Magnesium 1.8 mg/dl (1.8-2.4); Potassium 3.7 mmol/L (3.5-5.1); Sodium 137 mmol/L (136-145)
[2021-05-14 21:50] LABS: Albumin Globulin Ratio 0.8 (0.9-2); Alkaline Phosphatase 81 U/L (45-117); Bilirubin,Total 0.6 mg/dl (0.2-1); Total Protein 7.1 gm/dl (6.4-8.2); Troponin I < 0.015 ng/ml (0-0.045)
[2021-05-15] MEDS ORDERED: FUROSEMIDE 40 MG/4 ML VIAL IV STA (00:03)
[2021-05-15] MEDS ORDERED: METOPROLOL TARTRATE 1 MG/ML VIAL IV STA ×2 (00:03→01:03)
[2021-05-15] MEDS ORDERED: dilTIAZem HCl 5 MG/ML 5 ML VIAL IV STA (01:39)
[2021-05-15] MEDS ORDERED: POTASSIUM CHLORIDE CRTAB 20 MEQ TABCR PO STA (01:55)
[2021-05-15] MEDS ORDERED: MAGNESIUM SULFATE / D5W 1 GM/100 ML BAG IV STA (01:58)
--- NOTE | 2021-05-15 02:06 | History & Physical Report ---
Date of Service May 15, 2021 Assessment & Plan (1) SOB (shortness of breath): Plan: Multifactorial : Decompensated systolic CHF secondary to uncontrolled A. fib, recently started on high-dose Toprol-XL and Eliquis (chronic systolic heart failure secondary to nonischemic cardiomyopathy (EF less than 20%, TTE 2020) sp ICD) COVID 19 pneumonia valvular heart disease (moderate to severe MR, mild TR on recent TTE) nonocclusive CAD as per records HTN, BP on the lower side hyperlipidemia/statin intolerance JOSE DE JESUS on CPAP, patient compliant with CPAP up until recent illness DM2 on oral medications, reasonable control as of recent hemoglobin A1c of 7.30 April 2021 CRI, creatinine at baseline chronic anemia, hemoglobin at baseline Past tobacco abuse PCU Lasix albumin given low BP and kidney dysfunction Strict I/Os, daily weights, CHF education, fluid restriction Decrease Toprol-XL dose to 25 mg twice daily from home dose of 100 mg twice daily for now given hypotension and subacute CHF Cardiology consult Re: Decompensated CHF, uncontrolled A. fib Supportive management for COVID-19 pneumonia for now Basal insulin, ISS BG goal 1 10-1 40, carb count coverage DVT prophylaxis. Eliquis Full code Patient's requesting updates from providers. Ms. Eva James, contact #[phone]. Text document was generated using [employer] voice recognition software. It may contain grammatical or spelling errors. Kindly contact undersigned for clarification of any documentation item in question. History of Present Illness Chief Complaint: Worsening shortness of breath Primary Care Provider: Leah Durán, History obtained from patient, family, and records. Medical history significant for chronic systolic heart failure secondary to nonischemic cardiomyopathy (EF less than 20%, TTE 2020) sp ICD, valvular heart disease (moderate to severe MR, mild TR on recent TTE), nonocclusive CAD as per records, A. fib on Eliquis, HTN, hyperlipidemia/statin intolerance, JOSE DE JESUS on CPAP, DM2 on oral medications, CRI (recent creatinine of 1.4), chronic anemia (baseline hemoglobin 12-13), past tobacco abuse. 2 weeks ago, patient was in [place] with family for a vacation. Last week (last 2 days of the trip), patient started feeling poorly. Poor appetite. Shortness of breath mostly on exertion. No chest pain. Occasional palpitations. Upon return home to [place], 10 pound weight gain noted on his scale at home. Note of orthopnea symptoms with some leg swelling. Dry cough symptoms without fever chills. Patient not sure about Covid 19 contacts given recent airplane travel. Patient completed COVID-19 vaccination. Patient seen at [facility] office 3 days ago. EKG showed atrial fibrillation. ICD interrogation showed atrial fibrillation with ventricular rates greater than 100 bpm for the last 11 days. Numerous NSVT episodes. Outpatient CXR showed pulmonary congestion, pleural effusion. May 12, 2021 TTE Interpretation Summary : Atrial fibrillation with rapid ventricular response was present during the echocardiogram study. The left ventricular cavity size is severely enlarged. The septal motion is abnormal consistent with intrventricular conduction delay. There is severe diffuse left ventricular hypokinesis. The qualitative LV ejection fraction is <20% (severely reduced). The left atrium is severely enlarged. Moderate to severe mitral regurgitation is present. The mitral regurgitation jet is eccentric and wall impinging. Mild tricuspid regurgitation is present. The inferior vena cava is mildly dilated and collapses less than 50% with inspiration consistent with an intermediate right atrial pressure of 8 millimeters Hg. Mild pulmonary hypertension is present. The estimated pulmonary artery systolic pressure=44 millimeters Hg. Compared to the prior study performed 02/28/2019, atrial fibrillation with rapid ventricular response is now present. The left ventricular ejection fraction was estimated to be 25-29% and 2018 as compared to less than 20% on the present study. Moderate to severe mitral regurgitation is now present. Patient's carvedilol and HCTZ stopped. Toprol-XL 100 mg twice daily with Eliquis twice daily started for new onset A. fib. Lasix 40 mg daily initiated for CHF. Worsening symptoms despite compliance with new medications. At the ER, IV Lopressor and Cardizem boluses given for rapid A. fib. 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 Allergy/AdvReac Type Severity Reaction Status Date / Time No Known Allergies Allergy Verified 05/15/21 00:55 Home Medications Medication Instructions Recorded Confirmed Type sacubitril 24 mg-valsartan 26 mg 1 tab PO BID 04/26/19 05/15/21 History tablet (Entresto) spironolactone 25 mg tablet 25 mg PO QAM 04/26/19 05/15/21 History aspirin 81 mg tablet,delayed 81 mg PO QAM 01/05/21 05/15/21 History release coQ10 (ubiquinol) 100 mg capsule 100 mg PO QAM 01/05/21 05/15/21 History multivitamin 1 tab PO QAM 01/05/21 05/15/21 History omega 2-fac-flb-fish oil 1,200 mg 1 cap PO HS 01/05/21 05/15/21 History (144 mg-216 mg) capsule (Fish Oil) apixaban 5 mg tablet (Eliquis) 5 mg PO BID 05/15/21 05/15/21 History cholecalciferol (vitamin D3) 50 50 mcg PO DAILY 05/15/21 05/15/21 History mcg (2,000 unit) tablet (Vitamin D3) cyclobenzaprine 10 mg tablet 10 mg PO TID PRN 05/15/21 05/15/21 History furosemide 40 mg tablet 40 mg PO BID 05/15/21 05/15/21 History latanoprost 0.005 % eye drops 1 drp OPB HS 05/15/21 05/15/21 History metformin 500 mg tablet 500 mg PO AMPM 05/15/21 05/15/21 History metoprolol succinate 100 mg 100 mg PO BID 05/15/21 05/15/21 History tablet,extended release 24 hr omeprazole 20 mg capsule,delayed 20 mg PO DAILY 05/15/21 05/15/21 History release potassium chloride 10 mEq 10 meq PO DAILY 05/15/21 05/15/21 History tablet,extended release(part/cryst) (Klor-Con M) semaglutide (Ozempic) 0.5 mg SUBCUT WK 05/15/21 05/15/21 History Past Med/Surg History Medical History CAD (coronary artery disease) Cardiac defibrillator in place Chronic systolic congestive heart failure, NYHA class 2 HTN (hypertension) Hyperlipidemia Morbid obesity NICM (nonischemic cardiomyopathy) JOSE DE JESUS (obstructive sleep apnea) Surgical History History of total left hip arthroplasty History of total right hip arthroplasty Family History (Updated 04/26/19 @ 09:28 by Eva Guevara DO) Mother Stroke Father Coronary heart disease Social History Smoking Status: Never smoker Hx Alcohol Use: Yes Alcohol type: beer and wine Hx Substance Use: No Preferred Language: Argentine Communication Ability: Effective Dial Lathe Operator Required: No Beliefs That Will Affect Care: None Current Living Situation: Spouse Other Information That Helps Us Care for You: No Feels Safe at Home: Yes Safety Concerns: Feels Safe At This Time Assistive Devices: CPAP and Glasses Review of Systems Review of Systems: As per HPI, all 10 systems reviewed, all other ROS negative Physical Exam Physical Exam: GENERAL: Comfortable, slightly anxious, morbidly obese, episodic tachypnea SKIN: Pallor,, warm HEENT: Partial alopecia, bespectacled, pale palpebral conjunctivae, no ptosis, dry buccal mucosa NECK : Supple, short neck, no tenderness CHEST : Decreased breath sounds, no tenderness HEART : Tachycardic, irregular,, no obvious murmurs ABDOMEN: Some distention, nontender EXTREMITIES : Bilateral LE swelling, no LE tenderness, no other conspicuous deformities noted NEUROLOGIC : Coherent, no facial asymmetry, no other gross focality Results & Data Results & Data ([facility] Vital Signs (Past 12 Hours) Vital Signs Temp Pulse Resp BP Pulse Ox 05/15/21 01:29 132 H 100/76 05/15/21 01:15 131 H 22 101/82 96 05/15/21 01:00 132 H 22 108/88 96 05/15/21 00:47 131 H 108/39 L 94 05/15/21 00:30 131 H 102/87 96 05/15/21 00:26 116/100 95 05/15/21 00:21 121 H 101/83 05/14/21 23:59 131 H 25 H 119/90 94 05/14/21 20:40 35.6 C L 128 H 22 120/55 L 97 Laboratory Results Laboratory Results WBC 8.83 K/uL (4.8-10.8) 05/14/21 21:06 RBC 4.59 M/uL (4.7-6.1) L 05/14/21 21:06 Hgb 12.5 g/dL (14.0-18.0) L 05/14/21 21:06 Hct 39.4 % (42-52) L 05/14/21 21:06 MCV 85.8 fL (80-100) 05/14/21 21:06 MCH 27.2 pg (25-34) 05/14/21 21:06 MCHC 31.7 g/dL (32-36) L 05/14/21 21:06 RDW Std Deviation 51.1 fL (36.4-46.3) H 05/14/21 21:06 RDW Coeff of Jose 16.6 % (11.5-14.5) H 05/14/21 21:06 Plt Count 260 K/uL (130-400) 05/14/21 21:06 MPV 11.1 fL (7.4-10.4) H 05/14/21 21:06 Immature Gran % (Auto) 0.2 % 05/14/21 21:06 Neut % (Auto) 74.2 % 05/14/21 21:06 Lymph % (Auto) 15.5 % 05/14/21 21:06 [place] % (Auto) 7.8 % 05/14/21 21:06 Eos % (Auto) 1.7 % 05/14/21 21:06 Baso % (Auto) 0.6 % 05/14/21 21:06 Neut # (Auto) 6.55 K/uL (1.4-6.5) H 05/14/21 21:06 Lymph # (Auto) 1.37 K/uL (1.2-3.4) 05/14/21 21:06 [place] # (Auto) 0.69 K/uL (0.11-0.59) H 05/14/21 21:06 Eos # (Auto) 0.15 K/uL (0-0.5) 05/14/21 21:06 Baso # (Auto) 0.05 K/uL (0-0.2) 05/14/21 21:06 Immature Gran # (Auto) 0.02 K/uL (0.00-0.02) 05/14/21 21:06 PT 11.7 Seconds (9.0-12.0) 05/14/21 21:06 INR 1.2 (0.9-1.1) H 05/14/21 21:06 APTT 28.5 Seconds (21.0-31.0) 05/14/21 21:06 PTT Ratio 1.1 05/14/21 21:06 Sodium 137 mmol/L (136-145) 05/14/21 21:06 Potassium 3.7 mmol/L (3.5-5.1) 05/14/21 21:06 Chloride 105 mmol/L (98-107) 05/14/21 21:06 Carbon Dioxide 22 mmol/L (21-32) 05/14/21 21:06 Anion Gap 11.0 (3-11) 05/14/21 21:06 BUN 33 mg/dl (7-18) H 05/14/21 21:06 Creatinine 1.42 mg/dl (0.6-1.4) H 05/14/21 21:06 Est Cr Clr Drug Dosing Not Reportable 05/14/21 21:06 Est GFR ( Amer) 59.6 ml/min 05/14/21 21:06 Est GFR (Non-Af Amer) 51.5 ml/min 05/14/21 21:06 BUN/Creatinine Ratio 23.4 (10-20) H 05/14/21 21:06 Glucose 213 mg/dl (70-99) H 05/14/21 21:06 Calcium 9.0 mg/dl (8.5-10.1) 05/14/21 21:06 Magnesium 1.8 mg/dl (1.8-2.4) 05/14/21 21:06 Total Bilirubin 0.6 mg/dl (0.2-1) 05/14/21 21:06 AST 21 U/L (15-37) 05/14/21 21:06 ALT 48 U/L (12-78) 05/14/21 21:06 Alkaline Phosphatase 81 U/L (45-117) 05/14/21 21:06 Troponin I < 0.015 ng/ml (0-0.045) 05/14/21 21:06 Total Protein 7.1 gm/dl (6.4-8.2) 05/14/21 21:06 Albumin 3.1 gm/dl (3.4-5.0) L 05/14/21 21:06 Globulin 4.0 gm/dl (2.5-4.0) 09/22/21 21:06 Albumin/Globulin Ratio 0.8 (0.9-2) L 05/14/21 21:06 COVID-19 Eval Order Covid19 at [facility] 05/15/21 00:19 SARS-CoV-2 (PCR) POSITIVE (Negative) A* 05/15/21 00:19 Diagnostic Findings Chest x-ray as per my interpretation cardiomegaly, CHF EKG as per my interpretation : Rate 130, A. fib, LAD, LAFB, T wave flattening lateral leads, low voltage
[2021-05-15] MEDS ORDERED: INSULIN GLARGINE SOLOSTAR 100 UNITS/ML 3 ML PEN SC STA (02:56)
[2021-05-15] MEDS ORDERED: LEVALBUTEROL TARTRATE 15 GM HFA.AER.AD INH STA (02:57)
[2021-05-15] MEDS ORDERED: DIGOXIN 250 MCG in SYRINGE 9 ML IV STA ×2 (03:00→04:49)
[2021-05-15] MEDS ORDERED: ALBUMIN 25% 12.5 GM/50 ML VIAL IV STA (03:00)
[2021-05-15] MEDS ORDERED: ACETAMINOPHEN 325 MG TAB PO PRN (03:59)
[2021-05-15] MEDS ORDERED: NITROGLYCERIN SL 0.4 MG/TAB TAB SL PRN (03:59)
[2021-05-15] MEDS ORDERED: DEXTROSE 50% 50 ML SYRINGE IV PRN (03:59)
[2021-05-15] MEDS ORDERED: PROMETHAZINE HCL 12.5 MG in SODIUM CHLORIDE 0.9% 50 ML IV PRN (03:59)
[2021-05-15] MEDS ORDERED: traMADol HCL 50 MG TABLET PO PRN (03:59)
[2021-05-15] MEDS ORDERED: LEVALBUTEROL TARTRATE 15 GM HFA.AER.AD INH PRN (03:59)
[2021-05-15] MEDS ORDERED: GLUCOSE 40% GEL 15 GM TUBE PO PRN (03:59)
[2021-05-15] MEDS ORDERED: GLUCAGON FOR INJ 1 MG VIAL SQ PRN (03:59)
[2021-05-15] MEDS ORDERED: GLUCOSE 10 TABS/TUBE PO PRN (03:59)
[2021-05-15] MEDS ORDERED: CARBOHYDRATES FOR HYPOGLYCEMIA PO PRN (03:59)
[2021-05-15] MEDS: guaiFENesin 600 MG TABCR PO SCH ×3 (04:22→22:40)
[2021-05-15] MEDS: INSULIN ASPART 100 UNITS/ML 3 ML PEN SC SCH ×5 (05:19→22:43)
[2021-05-15 05:39] LABS: Basophils # (auto) 0.03 K/uL (0-0.2); Basophils % (auto) 0.3 %; Eosinophils # (auto) 0.15 K/uL (0-0.5); Eosinophils % (auto) 1.5 %; Hematocrit (blood only) 37.8 % (42-52); Hemoglobin 12.2 g/dL (14.0-18.0); Immature Granulocytes # (auto) 0.01 K/uL (0.00-0.02); Immature Granulocytes % (auto) 0.1 %; Lymphocytes # (auto) 1.03 K/uL (1.2-3.4); Lymphocytes % (auto) 10.1 %; Mean Corpuscular Hemoglobin 27.1 pg (25-34); Mean Corpuscular Hgb Conc 32.3 g/dL (32-36); Mean Corpuscular Volume 83.8 fL (80-100); Mean Platelet Volume 10.7 fL (7.4-10.4); Monocytes # (auto) 0.82 K/uL (0.11-0.59); Monocytes % (auto) 8.1 %; Neutrophils # (auto) 8.12 K/uL (1.4-6.5); Neutrophils % (auto) 79.9 %; Platelet Count 229 K/uL (130-400); RDW Coefficient of Variation 16.4 % (11.5-14.5); RDW Standard Deviation 48.9 fL (36.4-46.3); Red Blood Count 4.51 M/uL (4.7-6.1); White Blood Count 10.16 K/uL (4.8-10.8)
[2021-05-15 05:55] LABS: Calcium 9.2 mg/dl (8.5-10.1); Creatinine Clr Calc Pharmacy 76.2 ml/min; Est GFR (African American) 69.6 ml/min; Potassium 3.8 mmol/L (3.5-5.1)
--- NOTE | 2021-05-15 07:25 | XRay Report ---
XR chest 1V portable CLINICAL HISTORY: SOB COMPARISON STUDY: April 27, 2019 FINDINGS: No pneumothorax. No pleural effusion. Reticular nodular opacities are seen bilaterally with superimposed hazy opacities in bilateral mid to lower lung region which could represent chronic fibrosis with possible superimposed pulmonary edema. Left retrocardiac opacity is in the right infrahilar opacities might represent atelectasis or infiltr ates. Cardiac silhouette is mildly enlarged. Aorta is tortuous. Mild pulmonary vascular congestion is seen.. Osseous structures: Mild degenerative changes of the right shoulder. Vertebral bodies are not well s een. Left-sided single lead AICD is again noted with battery pack partially obscuring left lung parenchyma . IMPRESSION: 1. Mild cardiomegaly and pulmonary vascular congestion. Possible pulmonary edema. 2. Atelectasis/infiltrates at the right infrahilar and left retrocardiac region. 3. The rest of findings as above. ACT 112: Negative or not required by law. The above report was generated using voice recognition software. It may contain grammatical, syntax o r spelling errors. Electronically signed by: Nubia Shaw DO 05/15/2021 7:23 AM
[2021-05-15] MEDS: ALBUMIN 25% 12.5 GM/50 ML VIAL IV SCH ×2 (08:32→22:40)
[2021-05-15] MEDS: MULTIVITAMIN TAB PO SCH (08:35)
[2021-05-15] MEDS: PANTOprazole 40 MG TAB PO SCH (08:36)
[2021-05-15] MEDS: POTASSIUM CHLORIDE CRTAB 20 MEQ TABCR PO SCH ×2 (08:36→22:40)
[2021-05-15] MEDS: ASPIRIN 81 MG ECTAB PO SCH (08:36)
[2021-05-15] MEDS: APIXABAN 5 MG TABLET PO SCH ×2 (08:36→22:40)
[2021-05-15] MEDS ORDERED: METOPROLOL SUCC 25MG EXT REL TAB PO SCH (09:00)
[2021-05-15] MEDS ORDERED: FUROSEMIDE 40 MG/4 ML VIAL IV SCH ×2 (09:00→21:00)
[2021-05-15] MEDS ORDERED: FUROSEMIDE 40 MG in SYRINGE 0 ML IV SCH (09:00)
[2021-05-15] MEDS ORDERED: AMIODARONE IV BOLUS & DRIP IV STA (09:24)
[2021-05-15] MEDS ORDERED: AMIODARONE / D5W 150 MG/100 ML BAG IV STA (09:24)
[2021-05-15] MEDS ORDERED: STAT IV Infusion **Titration per Protocol STA (09:24)
[2021-05-15] MEDS ORDERED: 0.2 MICRON FILTER SET 1 EA IV ONE (09:24)
[2021-05-15] MEDS ORDERED: METOPROLOL TARTRATE 25 MG TAB PO ONE (09:29)
[2021-05-15] MEDS ORDERED: AMIODARONE / D5W 360 MG/200 ML BAG IV ONE (09:35)
--- NOTE | 2021-05-15 09:36 | Cardiology Consultation ---
Date of Consultation May 15, 2021 Assessment & Plan (1) Acute HFrEF (heart failure with reduced ejection fraction): (2) NICM (nonischemic cardiomyopathy): (3) Atrial fibrillation: (4) SARS-CoV-2 positive: Agree with furosemide 40 mg IV twice daily for now. Patient's systolic blood pressure is in the upper 90s to low 100s, but per review of his outpatient chart, this is not too much different from his typical baseline. His metoprolol dose was reduced to 25 mg twice daily on admission, but of note he is on high-dose carvedilol 25 mg twice daily at baseline, and so therefore I do not think we need to reduce his dose at much and I am going to resume his metoprolol with Toprol tartrate 100 mg twice daily for ease of titration with plans to convert him to succinate as his hospital stay develops. He is not in acute distress at present, and I do not think his current condition warrants acute cardioversion. A transesophageal echocardiogram would need to be performed for stratification as he had been in atrial fibrillation for 11 days prior to initiation of anticoagulation, and given his congestive heart failure and SARS-CoV-2 infection, he is not a good candidate for sedation at present and I do not think cardioversion would be effective as he would likely lapsed back i nto atrial fibrillation given concurrent volume overload and his infection. At this time recommend proceeding with amiodarone initiation for further rate control in the setting of relative low blood pressure. Although this is not ideal in a patient who has not been fully anticoagulated for the last 3 weeks, I think is the best next step in this case, and offers the potential for most benefit with an acceptable degree of risk compared to the alternatives. I discussed the plan with his nurse. As noted, continue Eliquis for stroke prophylaxis. Since his oxygen saturations are stable, 93% higher on room air, and I do not think he needs specific therapy for SARS-CoV-2 pneumonia but rather supportive care. Of note, as of October,, he had been fully vaccinated having received the Pfizer vaccine. History of Present Illness Attending Physician: Tania Horn MD History of Present Illness Mr Orourke is a 66 year old male seen in cardiology consultation per the request of Dr Lopez for the evaluation of atrial fibrillation with ventricular response and superimposed acute systolic heart failure. The patient's primary salesperson women's hats is Dr. Aldridge of our practice. He has a longstanding history of severe left ventricular systolic dysfunction due to a nonischemic cardiomyopathy. He underwent implantation of a single-chamber Medtronic AICD in 2019 for primary prevention of sudden cardiac . His ejection fraction has been relatively stable for years in the range of approximately 25%. He was seen in outpatient cardiology clinic on 05/12/2021 by Farooq Quiroz PA-C of our practice for progressive dyspnea on exertion, easy fatigability, and subjective sensation of heart racing. He noted recent travel by plane having returned to [place] on 05/10/2021 from [place] with a layover in [place]. EKG performed during that visit revealed new onset atrial fibrillation with rapid ventricular response. Device interrogation found stable generator longevity of 9.7 years and onset of atrial fibrillation with ventricular rates in excess of 100 bpm for 11 days proceeding his visit on 05/12/2021. An echo gram had been performed on 05/12/2021 with images reviewed independently by the undersigned while the patient was in atrial fibrillation with rapid ventricular response with findings of severe diffuse left ventricular hypokinesis LVEF less than 20% with severe left atrial margin, moderate to severe mitral regurgitation, mild tricuspid regurgitation, and mild pulmonary hypertension with estimated pulmonary artery systolic pressure of 44 mmHg. Compared to the previous study in 2019, the ejection fraction was 25 to 29% at that time. Recent medication changes included discontinuation of carvedilol 25 mg twice daily, discontinuation of HCTZ 12.5 mg daily, in favor of metoprolol succinate 100 mg twice daily, furosemide 40 mg p.o. daily, and Eliquis 5 mg twice daily. The patient felt progressively worse over the last 2 days prompting emergency room evaluation. At the time of my assessment in the emergency room, bay C10, ongoing atrial fibrillation in the 130s was noted on telemetry. He was comfortable without acute distress. In addition to found to have atrial fibrillation, acute systolic heart failure clinically and on chest x-ray, his PCR test is positive for SARS-CoV-2. Problem List: 1.Nonischemic cardiomyopathy, ejection fraction initially 20 to 25% 2.Prior cardiac catheterization, circa 2012, with minor coronary artery disease 3.Status post April 26, 2019 single-chamber rate responsive implantable cardiac defibrillator by Dr. Guevara at [facility] 4.Type 2 diabetes mellitus 5.Obstructive sleep apnea 6.Hypertension 7.Dyslipidemia, with past poor tolerance to statin therapies. Allergies Allergy/AdvReac Type Severity Reaction Status Date / Time No Known Allergies Allergy Verified 05/15/21 00:55 Home Medications Medication Instructions Recorded Confirmed Type sacubitril 24 mg-valsartan 26 mg 1 tab PO BID 04/26/19 05/15/21 History tablet (Entresto) spironolactone 25 mg tablet 25 mg PO QAM 04/26/19 05/15/21 History aspirin 81 mg tablet,delayed 81 mg PO QAM 01/05/21 05/15/21 History release coQ10 (ubiquinol) 100 mg capsule 100 mg PO QAM 01/05/21 05/15/21 History multivitamin 1 tab PO QAM 01/05/21 05/15/21 History omega 9-tri-jve-fish oil 1,200 mg 1 cap PO HS 01/05/21 05/15/21 History (144 mg-216 mg) capsule (Fish Oil) apixaban 5 mg tablet (Eliquis) 5 mg PO BID 05/15/21 05/15/21 History cholecalciferol (vitamin D3) 50 50 mcg PO DAILY 05/15/21 05/15/21 History mcg (2,000 unit) tablet (Vitamin D3) cyclobenzaprine 10 mg tablet 10 mg PO TID PRN 05/15/21 05/15/21 History furosemide 40 mg tablet 40 mg PO BID 05/15/21 05/15/21 History latanoprost 0.005 % eye drops 1 drp OPB HS 05/15/21 05/15/21 History metformin 500 mg tablet 500 mg PO AMPM 05/15/21 05/15/21 History metoprolol succinate 100 mg 100 mg PO BID 05/15/21 05/15/21 History tablet,extended release 24 hr omeprazole 20 mg capsule,delayed 20 mg PO DAILY 05/15/21 05/15/21 History release potassium chloride 10 mEq 10 meq PO DAILY 05/15/21 05/15/21 History tablet,extended release(part/cryst) (Klor-Con M) semaglutide (Ozempic) 0.5 mg SUBCUT WK 05/15/21 05/15/21 History Patient History Medical History CAD (coronary artery disease) Cardiac defibrillator in place Chronic systolic congestive heart failure, NYHA class 2 HTN (hypertension) Hyperlipidemia Morbid obesity NICM (nonischemic cardiomyopathy) JOSE DE JESUS (obstructive sleep apnea) Surgical History History of total left hip arthroplasty History of total right hip arthroplasty Family History Mother Stroke Father Coronary heart disease Social History Smoking Status: Never smoker Hx Alcohol Use: Yes Alcohol type: beer and wine Hx Substance Use: No Preferred Language: Swedish Communication Ability: Effective Driller Hand Required: No Beliefs That Will Affect Care: None Current Living Situation: Spouse Other Information That Helps Us Care for You: No Feels Safe at Home: Yes Safety Concerns: Feels Safe At This Time Assistive Devices: CPAP and Glasses Review of Systems Review of Systems: All systems reviewed & are unremarkable except as noted in HPI & below Physical Exam Constitutional: No acute stress. Respiratory: Mildly decreased breath sounds bilaterally at the bases Cardiovascular: Distant sounds due to the patient's body habitus, regular rhythm, no murmur discernible Gastrointestinal (Abdomen): Obese, soft nontender Skin: no rashes, warm and dry Results & Data ([facility]) Vital Signs (Past 12 Hours) Vital Signs Pulse Pulse Resp BP BP Pulse Ox Pulse Ox 05/15/21 05:20 113 H 17 104/72 93 05/15/21 05:14 111 H 05/15/21 05:00 115 H 20 103/81 95 05/15/21 04:42 96 05/15/21 04:30 131 H 18 121/78 94 05/15/21 04:19 132 H 05/15/21 04:00 131 H 25 H 114/93 97 05/15/21 03:46 117 H 23 118/88 94 05/15/21 03:30 112 H 17 126/99 94 05/15/21 03:15 113 H 22 113/76 94 05/15/21 03:00 115 H 20 111/81 94 05/15/21 02:45 99 H 26 H 101/72 94 05/15/21 02:30 105 H 26 H 93/64 L 94 05/15/21 02:15 113 H 25 H 113/82 96 05/15/21 02:01 130 H 24 91/70 L 05/15/21 01:45 121 H 23 111/69 95 05/15/21 01:30 132 H 24 99/76 L 95 05/15/21 01:29 132 H 100/76 05/15/21 01:15 131 H 22 101/82 96 05/15/21 01:00 132 H 22 108/88 96 05/15/21 00:47 131 H 108/39 L 94 05/15/21 00:30 131 H 102/87 96 05/15/21 00:26 116/100 95 05/15/21 00:21 121 H 101/83 05/14/21 23:59 131 H 25 H 119/90 94 Laboratory Results Cardiac Enzymes 05/14/21 Range/Units 21:06 AST 21 (15-37) U/L Troponin I < 0.015 (0-0.045) ng/ml Coagulation 05/14/21 Range/Units 21:06 PT 11.7 (9.0-12.0) Seconds APTT 28.5 (21.0-31.0) Seconds CBC 05/14/21 05/15/21 Range/Units 21:06 05:31 WBC 8.83 10.16 (4.8-10.8) K/uL RBC 4.59 L 4.51 L (4.7-6.1) M/uL Hgb 12.5 L 12.2 L (14.0-18.0) g/dL Hct 39.4 L 37.8 L (42-52) % Plt Count 260 229 (130-400) K/uL Neut # (Auto) 6.55 H 8.12 H (1.4-6.5) K/uL Lymph # (Auto) 1.37 1.03 L (1.2-3.4) K/uL [place] # (Auto) 0.69 H 0.82 H (0.11-0.59) K/uL Eos # (Auto) 0.15 0.15 (0-0.5) K/uL Baso # (Auto) 0.05 0.03 (0-0.2) K/uL Comprehensive Metabolic Panel 05/14/21 05/15/21 Range/Units 21:06 05:31 Sodium 137 137 (136-145) mmol/L Potassium 3.7 3.8 (3.5-5.1) mmol/L Chloride 105 104 (98-107) mmol/L Carbon Dioxide 22 23 (21-32) mmol/L BUN 33 H 31 H (7-18) mg/dl Creatinine 1.42 H 1.25 (0.6-1.4) mg/dl Glucose 213 H 140 H (70-99) mg/dl Calcium 9.0 9.2 (8.5-10.1) mg/dl AST 21 (15-37) U/L ALT 48 (12-78) U/L Alkaline Phosphatase 81 (45-117) U/L Total Protein 7.1 (6.4-8.2) gm/dl Albumin 3.1 L (3.4-5.0) gm/dl Intake and Output 05/14/21 05/15/21 05/15/21 22:59 06:59 14:59 Intake Total 120 / 120 50 / 50 Output Total 350 / 350 350 / 350 Balance -230 / -230 -300 / -300 Intake: IV 100 / 100 50 / 50 Albumin 25% 12.5 gm In 50 ml @ 50 / 50 50 mls/hr IV ONE STA Rx#: [id number] Magnesium Sulfate / D5w 1 gm In 100 / 100 100 ml @ 50 mls/hr IV ONE STA Rx#:[id number] Tube Feeding Output: Urine 350 / 350 350 / 350 Other: Other Intake Source meds and NS flush Weight 125.9 kg 125.9 kg Weight Measurement Method Built in [facility] Diagnostic Findings Chest x-ray with image reviewed independently reveals mild pulmonary edema, infiltrate cannot be ECG Additional Comments: EKG at 2100 revealed atrial fibrillation with rapid ventricular response, IVCD, poor R wave progression, lateral infarction cannot be excluded. EKG performed this morning at 12:54 AM, atrial fibrillation with rapid ventricular spots, IVCD. Compared to prior tracings dating back to 2019, atrial fibrillation is new, the forward progression the lateral precordial leads is a chronic finding.
[2021-05-15] MEDS ORDERED: PNEUMOCOCCAL POLYSACCHARIDES 25 MCG/0.5 ML VIAL/SYR IM ONE (10:00)
--- NOTE | 2021-05-15 10:07 | Communication Note ---
Date of Service: May 15, 2021 I called pt's spouse, Eva , and provided her an update with patient's progress and treatment plan.
--- NOTE | 2021-05-15 12:59 | Electrocardiogram Report ---
Test Reason : Blood Pressure : / mmHG Vent. Rate : 132 BPM Atrial Rate : 066 BPM P-R Int : 000 ms QRS Dur : 124 ms QT Int : 338 ms P-R-T Axes : 000 -47 079 degrees QTc Int : 500 ms Poor data quality, interpretation may be adversely affected Probable Sinus tachycardia Non-specific intra-ventricular conduction delay Possible Old Anterior infarct Abnormal ECG When compared with ECG of 26-APR-2019 12:06, Vent. rate has increased BY 82 BPM Otherwise no significant change Confirmed by Ravindra Mayes ([id number]) on 05/15/2021 12:58:47 PM Referred By: REFERRED SELF Confirmed By:Ravindra Mayes
--- NOTE | 2021-05-15 12:59 | Electrocardiogram Report ---
Test Reason : Blood Pressure : / mmHG Vent. Rate : 131 BPM Atrial Rate : 131 BPM P-R Int : 144 ms QRS Dur : 126 ms QT Int : 344 ms P-R-T Axes : 000 -49 080 degrees QTc Int : 507 ms Poor data quality, interpretation may be adversely affected Sinus tachycardia Left axis deviation Non-specific intra-ventricular conduction block Possible Old Anterior infarct Abnormal ECG When compared with ECG of 14-MAY-2021 21:00, No significant change Confirmed by Ravindra Mayes ([id number]) on 05/15/2021 12:59:27 PM Referred By: REFERRED SELF Confirmed By:Ravindra Mayes
[2021-05-15] MEDS: AMIODARONE / D5W 360 MG/200 ML BAG IV SCH (15:30)
--- NOTE | 2021-05-15 17:29 | Hospitalist Progress Note ---
Date of Service May 15, 2021 Assessment & Plan (1) Acute HFrEF (heart failure with reduced ejection fraction): (2) SOB (shortness of breath): Plan: Presented on admission with SOB and lower extremities edema CXR showed mild cardiomegaly and pulmonary vascular congestion. Possible pulmonary edema. Started on Lasix 40 mg IV twice daily Has been diuresing very well Cardiology on board recommend to continue IV Lasix Monitor BMP while on Lasix Clinically improved Afib Was started on IV amiodarone drip Per cardiology no plan for cardioversion since patient has been in A. fib for the past few days Due to positive Covid 19 no plan to proceed with EDU He was started on Eliquis for stroke prophylaxis Continue monitor closely COVID-19 Clinically stable Saturating well on room air Does not meet the criteria for steroid around them severe We will continue monitor closely Diabetes type 2 Most recent hemoglobin A1c 7.8 on April 2021 Continue to hold Metformin during inpatient hospital course On insulin sliding scale and Lantus while inpatient Continue monitor blood sugar Obstructive sleep apnea Continue CPAP DVT prophylaxis. Eliquis Full code Ms. Eva James, contact #[phone]. Admission and Anticipated Discharge Date Admission Date: May 15, 2021 Subjective Pt was seen and examined for follow-up of shortness of breath and Lower extremity swelling lying in bed with no acute distress Patient said breathing and swelling improve He said that he has been diuresis well with the lasix Saturated well on RA Denies any chest pain, palpitation, dizziness, shortness of breath. Review of Systems Review of Systems: All systems reviewed & are unremarkable except as noted in Subjective Physical Exam Physical Exam: General- No acute distress Head- atraumatic Eyes- PERRL, EOMI, ENT- oropharynx clear Neck- supple, no JVD Lungs- clear to auscultation Heart- irregular rhythm; no murmur Abdomen- normal bowel sounds, soft, nontender Extremities- no calf tenderness, +trace edema Neuro- alert, oriented x 3; PERRL, EOMI; no facial palsy; no dysarthria Skin- warm & dry Results & Data Results & Data ([facility]) Vital Signs (Past 12 Hours) Vital Signs Temp Pulse Pulse Resp BP BP Pulse Ox 05/15/21 15:18 36.8 C 99 H 18 119/99 95 05/15/21 15:01 96 H 15 95 05/15/21 14:00 104 H 16 112/83 87 L 05/15/21 13:00 97 H 18 123/99 95 05/15/21 12:15 123 H 26 H 05/15/21 11:05 112 H 23 05/15/21 10:03 109 H 20 94 05/15/21 09:13 100 H 17 05/15/21 08:00 116 H 105 H 23 111/94 94 05/15/21 07:00 104 H 27 H 107/90 96 05/15/21 06:01 121 H 18 120/84 94
[2021-05-15] MEDS: AMIODARONE 200 MG TAB PO SCH (20:49)
[2021-05-15] MEDS: METOPROLOL TARTRATE 100 MG TAB PO SCH (22:40)
[2021-05-15] MEDS: LATANOPROST 0.005% OP SOLN 2.5 ML BTL OPB SCH (22:55)
--- NOTE | 2021-05-15 23:20 | Emergency Department Note ---
History of Present Illness General Chief complaint: Shortness of Breath/Dyspnea Stated complaint: SOB, COUGH, FLUID RETENTION Time Seen by Provider: 05/14/21 23:54 Source: patient and RN notes reviewed Mode of arrival: ambulatory Limitations: no limitations History of Present Illness Provider complaint: SOB Home Medications Medication Instructions Recorded Confirmed Type aspirin 81 mg tablet,delayed 81 mg PO QAM 01/05/21 05/15/21 History release coQ10 (ubiquinol) 100 mg capsule 100 mg PO QAM 01/05/21 05/15/21 History multivitamin 1 tab PO QAM 01/05/21 05/15/21 History omega 0-uxq-wuv-fish oil 1,200 mg 1 cap PO HS 01/05/21 05/15/21 History (144 mg-216 mg) capsule (Fish Oil) apixaban 5 mg tablet (Eliquis) 5 mg PO BID 05/15/21 05/15/21 History cholecalciferol (vitamin D3) 50 50 mcg PO DAILY 05/15/21 05/15/21 History mcg (2,000 unit) tablet (Vitamin D3) cyclobenzaprine 10 mg tablet 10 mg PO TID PRN 05/15/21 05/15/21 History latanoprost 0.005 % eye drops 1 drp OPB HS 05/15/21 05/15/21 History metformin 500 mg tablet 500 mg PO AMPM 05/15/21 05/15/21 History metoprolol succinate 100 mg 100 mg PO BID 05/15/21 05/15/21 History tablet,extended release 24 hr omeprazole 20 mg capsule,delayed 20 mg PO DAILY 05/15/21 05/15/21 History release potassium chloride 10 mEq 10 meq PO DAILY 05/15/21 05/15/21 History tablet,extended release(part/cryst) (Klor-Con M) semaglutide (Ozempic) 0.5 mg SUBCUT WK 05/15/21 05/15/21 History amiodarone 200 mg tablet 200 mg PO BIDM 30 Days #60 tab 05/19/21 Rx furosemide 40 mg tablet 40 mg PO DAILY #0 tab 05/19/21 05/15/21 Rx guaifenesin 200 mg tablet 200 mg PO TID PRN #15 tab 05/19/21 Rx Allergies Allergy/AdvReac Type Severity Reaction Status Date / Time No Known Allergies Allergy Verified 05/15/21 00:55 Past Med/Surg History Medical History CAD (coronary artery disease) Cardiac defibrillator in place Chronic systolic congestive heart failure, NYHA class 2 HTN (hypertension) Hyperlipidemia Morbid obesity NICM (nonischemic cardiomyopathy) JOSE DE JESUS (obstructive sleep apnea) Surgical History History of total left hip arthroplasty History of total right hip arthroplasty Family History Mother Stroke Father Coronary heart disease Social History Smoking Status: Never smoker Hx Alcohol Use: Yes Alcohol type: beer and wine Hx Substance Use: No Preferred Language: Sinhala Communication Ability: Effective Contracts Manager Required: No Beliefs That Will Affect Care: None Current Living Situation: Spouse Feels Safe at Home: Yes Assistive Devices: Glasses Physical Exam Vital Signs Vital Signs - 24 hr 05/14/21 23:59 05/15/21 00:21 05/15/21 00:26 Pulse Rate 131 H 121 H Pulse Rate from SpO2 Sensor 118 H Respiratory Rate 25 H Blood Pressure 119/90 101/83 116/100 Blood Pressure Mean 99 105 Pulse Oximetry 94 95 05/15/21 00:30 05/15/21 00:47 05/15/21 01:00 Pulse Rate 131 H 131 H 132 H Pulse Rate from SpO2 Sensor Respiratory Rate 22 Blood Pressure 102/87 108/39 L 108/88 Blood Pressure Mean 92 62 94 Pulse Oximetry 96 94 96 05/15/21 01:15 05/15/21 01:29 05/15/21 01:30 Pulse Rate 131 H 132 H 132 H Pulse Rate from SpO2 Sensor Respiratory Rate 22 24 Blood Pressure 101/82 100/76 99/76 L Blood Pressure Mean 88 83 Pulse Oximetry 96 95 05/15/21 01:45 05/15/21 02:01 05/15/21 02:15 Pulse Rate 121 H 130 H 113 H Pulse Rate from SpO2 Sensor Respiratory Rate 23 24 25 H Blood Pressure 111/69 91/70 L 113/82 Blood Pressure Mean 83 77 92 Pulse Oximetry 95 96 05/15/21 02:30 05/15/21 02:45 Pulse Rate 105 H 99 H Pulse Rate from SpO2 Sensor Respiratory Rate 26 H 26 H Blood Pressure 93/64 L 101/72 Blood Pressure Mean 73 81 Pulse Oximetry 94 94 Vital signs reviewed. General: Chronically ill-appearing 66-year-old male, in no significant distress. HEENT: No scleral icterus, PERRLA, neck supple. Atraumatic. Cardiovascular: Tachycardic but regular, no extra sounds. Pulmonary: Crackles to the bases bilaterally, normal work of breathing at rest on room air. Abdomen: Soft, obese, nontender, nondistended, positive bowel sounds. Musculoskeletal: Atraumatic, 1-2+ peripheral edema. Neurologic: Patient awake alert and oriented x 3. Skin: Warm, dry, no rash Course Administered Medications Discontinued Medications Amiodarone HCl (Amiodarone 200 Mg Tab) 200 mg PO BIDM [facility] Stop: 06/14/21 16:59 Last Admin: 05/19/21 07:39 Dose: Not Given Documented by: [id number] Admin: 05/17/21 17:51 Dose: 200 mg Documented by: [id number] Admin: 05/17/21 08:59 Dose: 200 mg Documented by: [id number] Admin: 05/16/21 17:01 Dose: 200 mg Documented by: [id number] Admin: 05/16/21 11:14 Dose: 200 mg Documented by: [id number] Admin: 05/15/21 20:49 Dose: 200 mg Documented by: [id number] Amiodarone HCl (Amiodarone 200 Mg Tab) 400 mg PO TIDM [facility] Stop: 06/17/21 11:59 Last Admin: 05/19/21 09:28 Dose: 400 mg Documented by: [id number] Admin: 05/18/21 17:35 Dose: 400 mg Documented by: [id number] Admin: 05/18/21 13:01 Dose: 400 mg Documented by: [id number] Amiodarone HCl (Amiodarone 200 Mg Tab) 400 mg PO NOW ONE Stop: 05/18/21 08:21 Last Admin: 05/18/21 08:54 Dose: 400 mg Documented by: [id number] Apixaban (Apixaban 5 Mg Tablet) 5 mg PO BID [facility] Stop: 06/14/21 08:59 Last Admin: 05/19/21 09:27 Dose: 5 mg Documented by: [id number] Admin: 05/18/21 21:48 Dose: 5 mg Documented by: [id number] Admin: 05/18/21 09:04 Dose: 5 mg Documented by: [id number] Admin: 05/17/21 20:59 Dose: 5 mg Documented by: [id number] Admin: 05/17/21 08:59 Dose: 5 mg Documented by: [id number] Admin: 05/16/21 20:55 Dose: 5 mg Documented by: [id number] Admin: 05/16/21 11:14 Dose: 5 mg Documented by: [id number] Admin: 05/15/21 22:40 Dose: 5 mg Documented by: [id number] Admin: 05/15/21 08:36 Dose: 5 mg Documented by: [id number] Aspirin (Aspirin 81 Mg E[facility]ab) [facility] [place] Stop: 06/14/21 08:59 Last Admin: 05/19/21 09:27 Dose: 81 mg Documented by: [id number] Admin: 05/18/21 11:28 Dose: Not Given Documented by: [id number] Admin: 05/17/21 08:59 Dose: 81 mg Documented by: [id number] Admin: 05/16/21 11:14 Dose: 81 mg Documented by: [id number] Admin: 05/15/21 08:36 Dose: 81 mg Documented by: [id number] Diltiazem HCl (Diltiazem Hcl 5 Mg/Ml 5 Ml Vial) 10 mg IV NOW STA Stop: 05/15/21 01:40 Last Admin: 05/15/21 02:22 Dose: 10 mg Documented by: [id number] Cosigned by: [id number] Furosemide (Furosemide 40 Mg/4 Ml Vial) 40 mg IV NOW STA Stop: 05/15/21 00:04 Last Admin: 05/15/21 00:31 Dose: 40 mg Documented by: [id number] Furosemide (Furosemide 40 Mg/4 Ml Vial) 40 mg IV TODAY@2100 [facility] Stop: 05/15/21 23:59 Last Admin: 05/15/21 22:40 Dose: 40 mg Documented by: [id number] Furosemide (Furosemide 40 Mg/4 Ml Vial) 20 mg IV NOW ONE Stop: 05/16/21 09:16 Last Admin: 05/16/21 09:57 Dose: 20 mg Documented by: [id number] Furosemide (Furosemide 40 Mg/4 Ml Vial) 20 mg IV ONE ONE Stop: 05/19/21 11:46 Last Admin: 05/19/21 12:51 Dose: 20 mg Documented by: [id number] Guaifenesin (Guaifenesin 600 Mg Tabcr) 600 mg PO Q12 [facility] Stop: 06/14/21 03:58 Last Admin: 05/19/21 09:27 Dose: 600 mg Documented by: [id number] Admin: 05/18/21 21:48 Dose: 600 mg Documented by: [id number] Admin: 05/18/21 09:05 Dose: 600 mg Documented by: [id number] Admin: 05/17/21 21:01 Dose: 600 mg Documented by: [id number] Admin: 05/17/21 08:58 Dose: 600 mg Documented by: [id number] Admin: 05/16/21 20:55 Dose: 600 mg Documented by: [id number] Admin: 05/16/21 09:56 Dose: 600 mg Documented by: [id number] Admin: 05/15/21 22:40 Dose: 600 mg Documented by: [id number] Admin: 05/15/21 08:33 Dose: 600 mg Documented by: [id number] Admin: 05/15/21 04:22 Dose: 600 mg Documented by: [id number] Magnesium Sulfate/Dextrose (Magnesium Sulfate / D5w) 1 gm in 100 mls @ 50 mls/hr IV ONE STA Stop: 05/15/21 03:57 Last Infusion: 05/15/21 04:22 Dose: 0 mls/hr Documented by: [id number] Admin: 05/15/21 02:22 Dose: 50 mls/hr Documented by: [id number] Albumin Human (Albumin 25%) 12.5 gm in 50 mls @ 50 mls/hr IV ONE STA Stop: 05/15/21 03:59 Last Infusion: 05/15/21 07:45 Dose: 0 mls/hr Documented by: [id number] Admin: 05/15/21 04:24 Dose: 50 mls/hr Documented by: [id number] Digoxin 250 mcg/ Syringe 10 mls @ 2 mls/min IV NOW STA Stop: 05/15/21 03:04 Last Admin: 05/15/21 04:19 Dose: 2 mls/min Documented by: [id number] Albumin Human (Albumin 25%) 12.5 gm in 50 mls @ 50 mls/hr IV BID [facility] Stop: 05/15/21 21:59 Last Infusion: 05/15/21 23:40 Dose: 0 mls/hr Documented by: [id number] Admin: 05/15/21 22:40 Dose: 50 mls/hr Documented by: [id number] Infusion: 05/15/21 09:49 Dose: 0 mls/hr Documented by: [id number] Admin: 05/15/21 08:32 Dose: 50 mls/hr Documented by: [id number] Furosemide 40 mg/ Syringe 4 mls @ 4 mls/min IV BID [facility] Stop: 05/15/21 20:29 Last Admin: 05/15/21 08:36 Dose: 4 mls/min Documented by: [id number] Digoxin 250 mcg/ Syringe 10 mls @ 2 mls/min IV ONE STA Stop: 05/15/21 04:53 Last Admin: 05/15/21 05:14 Dose: 2 mls/min Documented by: [id number] Amiodarone HCl/Dextrose (Nexterone / D5w) 150 mg in 100 mls @ 600 mls/hr IV NOW STA Stop: 05/15/21 09:33 Last Infusion: 05/15/21 10:02 Dose: 0 mls/hr Documented by: [id number] Cosigned by: [id number] Admin: 05/15/21 09:45 Dose: 600 mls/hr Documented by: [id number] Cosigned by: [id number] Amiodarone HCl/Dextrose (Nexterone / D5w) 360 mg in 200 mls @ 33.333 mls/hr IV ONE ONE Stop: 05/15/21 15:34 Last Infusion: 05/15/21 17:24 Dose: 0 mls/hr Documented by: [id number] Cosigned by: [id number] Admin: 05/15/21 10:03 Dose: 33.3 mls/hr Documented by: [id number] Cosigned by: [id number] Amiodarone HCl/Dextrose (Nexterone / D5w) 360 mg in 200 mls @ 16.667 mls/hr IV .Q12H [facility] Stop: 06/14/21 15:29 Last Infusion: 05/18/21 09:45 Dose: 0 mg/min, 0 mls/hr Documented by: [id number] Cosigned by: [id number] Infusion: 05/18/21 07:17 Dose: 0.5 mg/min, 16.7 mls/hr Documented by: [id number] Cosigned by: [id number] Admin: 05/18/21 00:11 Dose: 0.5 mg/min, 16.7 mls/hr Documented by: [id number] Cosigned by: [id number] Infusion: 05/18/21 00:08 Dose: 0.5 mg/min, 16.7 mls/hr Documented by: [id number] Cosigned by: [id number] Infusion: 05/17/21 19:15 Dose: 0.5 mg/min, 16.7 mls/hr Documented by: [id number] Cosigned by: [id number] Admin: 05/17/21 12:09 Dose: 0.5 mg/min, 16.7 mls/hr Documented by: [id number] Cosigned by: [id number] Infusion: 05/17/21 01:48 Dose: 0 mg/min, 0 mls/hr Documented by: [id number] Cosigned by: [id number] Infusion: 05/16/21 19:13 Dose: 0.5 mg/min, 16.7 mls/hr Documented by: [id number] Cosigned by: [id number] Admin: 05/16/21 15:33 Dose: 0.5 mg/min, 16.7 mls/hr Documented by: [id number] Cosigned by: [id number] Infusion: 05/16/21 15:29 Dose: 0.5 mg/min, 16.7 mls/hr Documented by: [id number] Cosigned by: [id number] Infusion: 05/16/21 07:03 Dose: 0.5 mg/min, 16.7 mls/hr Documented by: [id number] Cosigned by: [id number] Admin: 05/16/21 03:30 Dose: 0.5 mg/min, 16.7 mls/hr Documented by: [id number] Cosigned by: [id number] Infusion: 05/16/21 03:29 Dose: 0.5 mg/min, 16.7 mls/hr Documented by: [id number] Cosigned by: [id number] Infusion: 05/15/21 19:00 Dose: 0.5 mg/min, 16.7 mls/hr Documented by: [id number] Cosigned by: [id number] Admin: 05/15/21 15:30 Dose: 0.5 mg/min, 16.7 mls/hr Documented by: [id number] Cosigned by: [id number] Insulin Aspart (Insulin Aspart 100 Units/Ml 3 Ml Pen) 0 units SC ACHS [facility] Stop: 06/14/21 03:58 Last Admin: 05/19/21 12:40 Dose: 5 units Documented by: [id number] Cosigned by: [id number] Admin: 05/19/21 09:40 Dose: 5 units Documented by: [id number] Cosigned by: [id number] Admin: 05/18/21 23:34 Dose: 1 units Documented by: [id number] Cosigned by: [id number] Admin: 05/18/21 17:34 Dose: 6 units Documented by: [id number] Cosigned by: [id number] Admin: 05/18/21 13:00 Dose: 6 units Documented by: [id number] Cosigned by: [id number] Admin: 05/18/21 08:53 Dose: 4 units Documented by: [id number] Cosigned by: [id number] Admin: 05/17/21 21:35 Dose: Not Given Documented by: [id number] Admin: 05/17/21 17:51 Dose: 4 units Documented by: [id number] Cosigned by: [id number] Admin: 05/17/21 13:17 Dose: 7 units Documented by: [id number] Cosigned by: [id number] Admin: 05/17/21 09:29 Dose: 3 units Documented by: [id number] Cosigned by: [id number] Admin: 05/16/21 21:55 Dose: 4 units Documented by: [id number] Cosigned by: [id number] Admin: 05/16/21 17:51 Dose: 2 units Documented by: [id number] Cosigned by: [id number] Admin: 05/16/21 12:30 Dose: 5 units Documented by: [id number] Cosigned by: [id number] Admin: 05/16/21 08:00 Dose: 4 units Documented by: [id number] Cosigned by: [id number] Admin: 05/15/21 22:43 Dose: Not Given Documented by: [id number] Admin: 05/15/21 19:40 Dose: 3 units Documented by: [id number] Cosigned by: [id number] Admin: 05/15/21 12:45 Dose: 3 units Documented by: [id number] Cosigned by: [id number] Admin: 05/15/21 08:49 Dose: 2 units Documented by: [id number] Cosigned by: [id number] Admin: 05/15/21 05:19 Dose: 1 units Documented by: [id number] Cosigned by: [id number] Insulin Glargine (Insulin Glargine Solostar 100 Units/Ml 3 Ml Pen) 5 units SC NOW STA Stop: 05/15/21 02:57 Last Admin: 05/15/21 00:42 Dose: 5 units Documented by: [id number] Cosigned by: [id number] Insulin Glargine (Insulin Glargine Solostar 100 Units/Ml 3 Ml Pen) 5 units SC DAILY [facility] Stop: 06/15/21 08:59 Last Admin: 05/19/21 09:40 Dose: 5 units Documented by: [id number] Cosigned by: [id number] Admin: 05/18/21 09:05 Dose: 5 units Documented by: [id number] Cosigned by: [id number] Admin: 05/17/21 09:29 Dose: 5 units Documented by: [id number] Cosigned by: [id number] Admin: 05/16/21 08:00 Dose: 5 units Documented by: [id number] Cosigned by: [id number] Latanoprost (Latanoprost 0.005% Op Soln 2.5 Ml Btl) 1 drops OPB HS [facility] Stop: 06/14/21 20:59 Last Admin: 05/18/21 21:49 Dose: 1 drops Documented by: [id number] Admin: 05/17/21 21:00 Dose: 1 drops Documented by: [id number] Admin: 05/16/21 20:57 Dose: 1 drops Documented by: [id number] Admin: 05/15/21 22:55 Dose: 1 drops Documented by: [id number] Levalbuterol HCl (Levalbuterol Tartrate 15 Gm Hfa.Aer.Ad) 2 puffs INH NOW STA Stop: 05/15/21 02:58 Last Admin: 05/15/21 04:19 Dose: 2 puffs Documented by: [id number] Levalbuterol HCl (Levalbuterol Tartrate 15 Gm Hfa.Aer.Ad) 2 puffs INH Q4H PRN PRN Reason: sob/wheeze Stop: 06/14/21 03:58 Last Admin: 05/15/21 08:36 Dose: 2 puffs Documented by: [id number] Metoprolol Succinate (Metoprolol Succ 25mg Ext Rel Tab) 25 mg PO BID [facility] Stop: 06/14/21 08:59 Last Admin: 05/15/21 08:36 Dose: 25 mg Documented by: [id number] Metoprolol Succinate (Metoprolol Succ 50mg Ext Rel Tab) 100 mg PO BID [facility] Stop: 06/16/21 20:59 Last Admin: 05/19/21 09:28 Dose: 100 mg Documented by: [id number] Admin: 05/18/21 21:49 Dose: 100 mg Documented by: [id number] Admin: 05/18/21 09:08 Dose: 100 mg Documented by: [id number] Admin: 05/17/21 21:02 Dose: 100 mg Documented by: [id number] Metoprolol Tartrate (Metoprolol Tartrate 1 Mg/Ml Vial) 5 mg IV NOW STA Stop: 05/15/21 00:04 Last Admin: 05/15/21 00:21 Dose: 5 mg Documented by: [id number] Metoprolol Tartrate (Metoprolol Tartrate 1 Mg/Ml Vial) 5 mg IV NOW STA Stop: 05/15/21 01:04 Last Admin: 05/15/21 01:29 Dose: 5 mg Documented by: [id number] Metoprolol Tartrate (Metoprolol Tartrate 25 Mg Tab) 25 mg PO ONE ONE Stop: 05/15/21 09:30 Last Admin: 05/15/21 12:02 Dose: 25 mg Documented by: [id number] Metoprolol Tartrate (Metoprolol Tartrate 100 Mg Tab) 100 mg PO BID [facility] Stop: 06/14/21 20:59 Last Admin: 05/17/21 08:59 Dose: 100 mg Documented by: [id number] Admin: 05/16/21 21:05 Dose: Not Given Documented by: [id number] Admin: 05/16/21 11:15 Dose: 100 mg Documented by: [id number] Admin: 05/15/21 22:40 Dose: 100 mg Documented by: [id number] Multivitamins (Multivitamin Tab) 1 tab PO QAM [facility] Stop: 06/14/21 08:59 Last Admin: 05/19/21 09:27 Dose: 1 tab Documented by: [id number] Admin: 05/18/21 09:10 Dose: 1 tab Documented by: [id number] Admin: 05/17/21 08:58 Dose: 1 tab Documented by: [id number] Admin: 05/16/21 09:57 Dose: 1 tab Documented by: [id number] Admin: 05/15/21 08:35 Dose: 1 tab Documented by: [id number] Pantoprazole Sodium (Pantoprazole 40 Mg Tab) 40 mg PO DAILY [facility] Stop: 06/14/21 08:59 Last Admin: 05/19/21 09:27 Dose: 40 mg Documented by: [id number] Admin: 05/18/21 09:10 Dose: 40 mg Documented by: [id number] Admin: 05/17/21 09:00 Dose: 40 mg Documented by: [id number] Admin: 05/16/21 09:56 Dose: 40 mg Documented by: [id number] Admin: 05/15/21 08:36 Dose: 40 mg Documented by: [id number] Pneumococcal Polyvalent Vaccine (Pneumococcal Polysaccharides 25 Mcg/0.5 Ml Vial/Syr) 25 mcg IM .ONCE ONE Stop: 05/15/21 10:01 Last Admin: 05/19/21 11:33 Dose: Not Given Documented by: [id number] Potassium Chloride (Potassium Chloride Crtab 20 Meq Tabcr) 40 meq PO NOW STA Stop: 05/15/21 01:56 Last Admin: 05/15/21 02:19 Dose: 40 meq Documented by: [id number] Potassium Chloride (Potassium Chloride Crtab 20 Meq Tabcr) 20 meq PO BID [facility] Stop: 06/14/21 08:59 Last Admin: 05/19/21 09:27 Dose: 20 meq Documented by: [id number] Admin: 05/18/21 21:54 Dose: 20 meq Documented by: [id number] Admin: 05/18/21 09:09 Dose: 20 meq Documented by: [id number] Admin: 05/17/21 21:01 Dose: 20 meq Documented by: [id number] Admin: 05/17/21 08:57 Dose: 20 meq Documented by: [id number] Admin: 05/16/21 22:58 Dose: 20 meq Documented by: [id number] Admin: 05/16/21 11:15 Dose: 20 meq Documented by: [id number] Admin: 05/15/21 22:40 Dose: 20 meq Documented by: [id number] Admin: 05/15/21 08:36 Dose: 20 meq Documented by: [id number] Critical Care Time Critical Care Time: Yes Total Critical Care Time: 35 I have personally spent 35 minutes of critical care time in the direct management of this patient. This was a life/limb threatening event. This 35 minutes is in excess of all separately billable procedures. Medical Decision Making Differential Diagnosis Reactive airway disease, pneumonia, pneumothorax, COPD, CHF, infections, cardiac ischemia, pulmonary embolism, musculoskeletal, gastrointestinal, as well as other pathologies. Medical Records Attestation: I reviewed the patient's medical records. Home Medications Current Medication List: was personally reviewed by me Laboratory Data Attestation: I reviewed the patient's lab results. Result diagrams: 05/18/21 06:57 05/19/21 06:13 Lab Results 05/14/21 05/14/21 05/14/21 Range/Units 21:06 21:06 21:06 WBC 8.83 (4.8-10.8) K/uL RBC 4.59 L (4.7-6.1) M/uL Hgb 12.5 L (14.0-18.0) g/dL Hct 39.4 L (42-52) % MCV 85.8 (80-100) fL MCH 27.2 (25-34) pg MCHC 31.7 L (32-36) g/dL RDW Std Deviation 51.1 H (36.4-46.3) fL RDW Coeff of Jose 16.6 H (11.5-14.5) % Plt Count 260 (130-400) K/uL MPV 11.1 H (7.4-10.4) fL Immature Gran % (Auto) 0.2 % Neut % (Auto) 74.2 % Lymph % (Auto) 15.5 % [place] % (Auto) 7.8 % Eos % (Auto) 1.7 % Baso % (Auto) 0.6 % Neut # (Auto) 6.55 H (1.4-6.5) K/uL Lymph # (Auto) 1.37 (1.2-3.4) K/uL [place] # (Auto) 0.69 H (0.11-0.59) K/uL Eos # (Auto) 0.15 (0-0.5) K/uL Baso # (Auto) 0.05 (0-0.2) K/uL Immature Gran # (Auto) 0.02 (0.00-0.02) K/uL PT 11.7 (9.0-12.0) Seconds INR 1.2 H (0.9-1.1) APTT 28.5 (21.0-31.0) Seconds PTT Ratio 1.1 Sodium 137 (136-145) mmol/L Potassium 3.7 (3.5-5.1) mmol/L Chloride 105 (98-107) mmol/L Carbon Dioxide 22 (21-32) mmol/L Anion Gap 11.0 (3-11) BUN 33 H (7-18) mg/dl Creatinine 1.42 H (0.6-1.4) mg/dl Est Cr Clr Drug Dosing Not Reportable Est GFR ( Amer) 59.6 ml/min Est GFR (Non-Af Amer) 51.5 ml/min BUN/Creatinine Ratio 23.4 H (10-20) Glucose 213 H (70-99) mg/dl Calcium 9.0 (8.5-10.1) mg/dl Magnesium 1.8 (1.8-2.4) mg/dl Total Bilirubin 0.6 (0.2-1) mg/dl AST 21 (15-37) U/L ALT 48 (12-78) U/L Alkaline Phosphatase 81 (45-117) U/L Troponin I < 0.015 (0-0.045) ng/ml Total Protein 7.1 (6.4-8.2) gm/dl Albumin 3.1 L (3.4-5.0) gm/dl Globulin 4.0 (2.5-4.0) gm/dl Albumin/Globulin Ratio 0.8 L (0.9-2) TSH 2.130 (0.300-4.500) uIu/ml COVID-19 Eval Order SARS-CoV-2 (PCR) (Negative) 05/15/21 05/15/21 Range/Units 00:19 00:19 WBC (4.8-10.8) K/uL RBC (4.7-6.1) M/uL Hgb (14.0-18.0) g/dL Hct (42-52) % MCV (80-100) fL MCH (25-34) pg MCHC (32-36) g/dL RDW Std Deviation (36.4-46.3) fL RDW Coeff of Jose (11.5-14.5) % Plt Count (130-400) K/uL MPV (7.4-10.4) fL Immature Gran % (Auto) % Neut % (Auto) % Lymph % (Auto) % [place] % (Auto) % Eos % (Auto) % Baso % (Auto) % Neut # (Auto) (1.4-6.5) K/uL Lymph # (Auto) (1.2-3.4) K/uL [place] # (Auto) (0.11-0.59) K/uL Eos # (Auto) (0-0.5) K/uL Baso # (Auto) (0-0.2) K/uL Immature Gran # (Auto) (0.00-0.02) K/uL PT (9.0-12.0) Seconds INR (0.9-1.1) APTT (21.0-31.0) Seconds PTT Ratio Sodium (136-145) mmol/L Potassium (3.5-5.1) mmol/L Chloride (98-107) mmol/L Carbon Dioxide (21-32) mmol/L Anion Gap (3-11) BUN (7-18) mg/dl Creatinine (0.6-1.4) mg/dl Est Cr Clr Drug Dosing Est GFR ( Amer) ml/min Est GFR (Non-Af Amer) ml/min BUN/Creatinine Ratio (10-20) Glucose (70-99) mg/dl Calcium (8.5-10.1) mg/dl Magnesium (1.8-2.4) mg/dl Total Bilirubin (0.2-1) mg/dl AST (15-37) U/L ALT (12-78) U/L Alkaline Phosphatase (45-117) U/L Troponin I (0-0.045) ng/ml Total Protein (6.4-8.2) gm/dl Albumin (3.4-5.0) gm/dl Globulin (2.5-4.0) gm/dl Albumin/Globulin Ratio (0.9-2) TSH (0.300-4.500) uIu/ml COVID-19 Eval Order Covid19 at [facility] SARS-CoV-2 (PCR) POSITIVE A* (Negative) Imaging Data Radiologist's Impression: Chest X-Ray 05/14/21 20:43 XR chest 1V portable CLINICAL HISTORY: SOB COMPARISON STUDY: April 27, 2019 FINDINGS: No pneumothorax. No pleural effusion. Reticular nodular opacities are seen bilaterally with superimposed hazy opacities in bilateral mid to lower lung region which could represent chronic fibrosis with possible superimposed pulmonary edema. Left retrocardiac opacity is in the right infrahilar opacities might represent atelectasis or infiltrates. Cardiac silhouette is mildly enlarged. Aorta is tortuous. Mild pulmonary vascular congestion is seen.. Osseous structures: Mild degenerative changes of the right shoulder. Vertebral bodies are not well seen. Left-sided single lead AICD is again noted with battery pack partially obscuring left lung parenchyma. IMPRESSION: 1. Mild cardiomegaly and pulmonary vascular congestion. Possible pulmonary edema. 2. Atelectasis/infiltrates at the right infrahilar and left retrocardiac region. 3. The rest of findings as above. ACT 112: Negative or not required by law. The above report was generated using voice recognition software. It may contain grammatical, syntax or spelling errors. Electronically signed by: Nubia Shaw DO 05/15/2021 7:23 AM ECG Data Attestation: I personally reviewed and interpreted this ECG as follows: Indication: + SOB/dyspnea Rate (beats per minute): 74 Rhythm: + normal sinus ECG Intervals/blocks: + IVCD and + Normal QT-c ECG [place]: + Left axis deviation ECG ST segments: + Normal ST segments ECG Findings: + Q waves and + Poor R wave progression; no PACs or no PVCs Blood Pressure Blood Pressure Findings: Elevated blood pressure Blood Pressure Disposition: Referred to patients primary care provider MDM Narrative This patient was evaluated and appeared to be in no significant distress. An order for cardiac monitoring was placed and patient is noted to be in rapid atrial flutter at 132 bpm. Rhythm is noted to be fairly regular however the patient does have a history of atrial fibrillation, therefore subtle atrial flutter was felt to be likely. Patient did receive IV metoprolol x2. Chest x- ray was performed and reveals pulmonary vascular congestion. Patient did receive IV Lasix and has he remained tachycardic was given 10 mg of IV Cardizem. Patient's laboratory work is reassuring with a negative troponin however his Covid swab is positive. Patient did just returned from a trip to [place]. Patient is vaccinated. Case was discussed with the hospitalist service who evaluated patient for admission and further management. Impression & Plan SOB (shortness of breath), Atrial fibrillation with RVR, SARS-CoV-2 positive Discharge Plan Visit Data Chief Complaint: Shortness of Breath/Dyspnea Stated Complaint: SOB, COUGH, FLUID RETENTION ED Provider: Snehal Alejandro Discharge Problem: SOB (shortness of breath), Atrial fibrillation with RVR, SARS-CoV-2 positive Patient Disposition: Admitted As Inpatient Discharge Instructions Interventions: ED Discharge Assessment Last Done: 05/15/21 17:55
[2021-05-16] MEDS: AMIODARONE / D5W 360 MG/200 ML BAG IV SCH ×2 (03:30→15:33)
[2021-05-16 06:34] LABS: Basophils # (auto) 0.02 K/uL (0-0.2); Basophils % (auto) 0.2 %; Hematocrit (blood only) 38.3 % (42-52); Hemoglobin 12.1 g/dL (14.0-18.0); Immature Granulocytes # (auto) 0.02 K/uL (0.00-0.02); Immature Granulocytes % (auto) 0.2 %; Lymphocytes # (auto) 1.33 K/uL (1.2-3.4); Lymphocytes % (auto) 12.7 %; Mean Corpuscular Hemoglobin 27.4 pg (25-34); Mean Corpuscular Hgb Conc 31.6 g/dL (32-36); Mean Corpuscular Volume 86.8 fL (80-100); Mean Platelet Volume 11.2 fL (7.4-10.4); Monocytes # (auto) 0.72 K/uL (0.11-0.59); Monocytes % (auto) 6.9 %; Neutrophils # (auto) 8.26 K/uL (1.4-6.5); Platelet Count 274 K/uL (130-400); RDW Coefficient of Variation 16.5 % (11.5-14.5); RDW Standard Deviation 51.5 fL (36.4-46.3); Red Blood Count 4.41 M/uL (4.7-6.1); White Blood Count 10.45 K/uL (4.8-10.8)
[2021-05-16 07:08] LABS: Albumin Globulin Ratio 0.8 (0.9-2); Albumin Level 3.3 gm/dl (3.4-5.0); BUN Creatinine Ratio 22.6 (10-20); Bilirubin,Total 0.6 mg/dl (0.2-1); Calcium 9.1 mg/dl (8.5-10.1); Creatinine Clr Calc Pharmacy 67.3 ml/min; Est GFR (African American) 60.2 ml/min; Est GFR (Non-African American) 51.9 ml/min; Globulin 3.9 gm/dl (2.5-4.0); Potassium 3.8 mmol/L (3.5-5.1); Total Protein 7.2 gm/dl (6.4-8.2)
[2021-05-16] MEDS: INSULIN GLARGINE SOLOSTAR 100 UNITS/ML 3 ML PEN SC SCH (08:00)
[2021-05-16] MEDS: INSULIN ASPART 100 UNITS/ML 3 ML PEN SC SCH ×4 (08:00→21:55)
--- NOTE | 2021-05-16 08:55 | Electrocardiogram Report ---
Test Reason : Blood Pressure : / mmHG Vent. Rate : 100 BPM Atrial Rate : 227 BPM P-R Int : 000 ms QRS Dur : 130 ms QT Int : 422 ms P-R-T Axes : 000 -52 081 degrees QTc Int : 544 ms Atrial fibrillation Left axis deviation Non-specific intra-ventricular conduction block Possible Old Anterior infarct Abnormal ECG When compared with ECG of 15-MAY-2021 00:54, Atrial fibrillation now present Confirmed by Ravindra Mayes ([id number]) on 05/16/2021 8:55:05 AM Referred By: REFERRED SELF Confirmed By:Ravindra Mayes
[2021-05-16] MEDS ORDERED: FUROSEMIDE 20 MG in SYRINGE 0 ML IV ONE (09:08)
[2021-05-16] MEDS ORDERED: FUROSEMIDE 40 MG/4 ML VIAL IV ONE (09:15)
[2021-05-16] MEDS: guaiFENesin 600 MG TABCR PO SCH ×2 (09:56→20:55)
[2021-05-16] MEDS: PANTOprazole 40 MG TAB PO SCH (09:56)
[2021-05-16] MEDS: MULTIVITAMIN TAB PO SCH (09:57)
[2021-05-16] MEDS: APIXABAN 5 MG TABLET PO SCH ×2 (11:14→20:55)
[2021-05-16] MEDS: AMIODARONE 200 MG TAB PO SCH ×2 (11:14→17:01)
[2021-05-16] MEDS: ASPIRIN 81 MG ECTAB PO SCH (11:14)
[2021-05-16] MEDS: POTASSIUM CHLORIDE CRTAB 20 MEQ TABCR PO SCH ×2 (11:15→22:58)
[2021-05-16] MEDS: METOPROLOL TARTRATE 100 MG TAB PO SCH ×2 (11:15→21:05)
--- NOTE | 2021-05-16 11:21 | Cardiology Progress Note ---
Date of Service May 16, 2021 Assessment & Plan (1) Acute HFrEF (heart failure with reduced ejection fraction): (2) NICM (nonischemic cardiomyopathy): (3) Atrial fibrillation: (4) SARS-CoV-2 positive: Plan: Pt seen in respiratory isolation wing. Pulx ox 95% on room air. No clinical pneumonia. Diuresed 3 L with improvement in dyspnea, heart rate trend better, edema better. Creatinine back up to 1.45 Reduce furosemide to 20 mg IV x 1 today. Check renal panel in am. Continue amiodarone gtt, and oral, metoprolol. Continue Eliquis for stroke prevention. Admission and Anticipated Discharge Date Admission Date: May 15, 2021 Subjective Pt seen in follow up. Feeling better. Afib with rates of 90-120 bmp. Review of Systems Review of Systems: All systems reviewed & are unremarkable except as noted in HPI & below Physical Exam Physical Exam: Temp Pulse Resp BP Pulse Ox 36.8 C 100 H 18 108/77 95 05/16/21 08:10 05/16/21 10:02 05/16/21 08:10 05/16/21 08:10 05/16/21 08:10 Constitutional: no acute distress Respiratory: mildly reduced BS at the bases Cardiovascular: Rate/Rhythm: + tachycardic and + irregularly irregular Extremities: + edema (trace LE edema , improving ) Neurologic: PERRL, EOMI, accommodation nl, no face palsy, no dysarthria Results & Data ([facility]) Vital Signs (Past 12 Hours) Vital Signs Temp Pulse Pulse Pulse Resp BP Pulse Ox 05/16/21 10:02 100 H 05/16/21 08:10 36.8 C 104 H 18 108/77 95 05/16/21 05:59 36.8 C 87 16 112/76 94 05/16/21 01:28 36.6 C 101 H 16 128/72 95 05/16/21 00:00 128 H
[2021-05-16] MEDS: LATANOPROST 0.005% OP SOLN 2.5 ML BTL OPB SCH (20:57)
--- NOTE | 2021-05-16 22:34 | Hospitalist Progress Note ---
Date of Service May 16, 2021 Assessment & Plan (1) Acute HFrEF (heart failure with reduced ejection fraction): (2) SOB (shortness of breath): Plan: Presented on admission with SOB and lower extremities edema CXR showed mild cardiomegaly and pulmonary vascular congestion. Possible pulmonary edema. Started on Lasix 40 mg IV twice daily on admission Has been diuresing very well Cardiology on board Lasix decreased to 20 mg today since creatinine bumped to 1.4 Monitor BMP while on Lasix Clinically improved Afib Heart rate improved Continue IV amiodarone drip Per cardiology no plan for cardioversion since patient has been in A. fib for the past few days Due to positive Covid 19 no plan to proceed with EDU Starting on amiodarone 200 mg twice daily p.o. Continue metoprolol 100 mg twice daily Continue Eliquis for stroke prophylaxis Continue monitor closely COVID-19 Clinically stable Saturating well on room air Does not meet the criteria for steroid around them severe We will continue monitor closely Diabetes type 2 Most recent hemoglobin A1c 7.8 on April 2021 Continue to hold Metformin during inpatient hospital course On insulin sliding scale and Lantus while inpatient Continue monitor blood sugar Obstructive sleep apnea Continue CPAP DVT prophylaxis. Eliquis Full code Ms. Eva James, contact #[phone]. Admission and Anticipated Discharge Date Admission Date: May 15, 2021 Subjective Pt was seen and examined for follow-up of shortness of breath and Lower extremity swelling lying in bed with no acute distress Patient said that he feels fine Saturated well on RA Denies any chest pain, palpitation, dizziness, shortness of breath. Review of Systems Review of Systems: All systems reviewed & are unremarkable except as noted in Subjective Physical Exam Physical Exam: General- No acute distress Head- atraumatic Eyes- PERRL, EOMI, ENT- oropharynx clear Neck- supple, no JVD Lungs- clear to auscultation Heart- irregular rhythm; no murmur Abdomen- normal bowel sounds, soft, nontender Extremities- no calf tenderness, +trace edema Neuro- alert, oriented x 3; PERRL, EOMI; no facial palsy; no dysarthria Skin- warm & dry Results & Data Results & Data ([facility]) Vital Signs (Past 12 Hours) Vital Signs Temp Pulse Pulse Resp BP BP Pulse Ox 05/16/21 21:11 94/73 L 05/16/21 19:54 36.5 C 112 H 18 95/71 L 94 05/16/21 15:00 96 H 05/16/21 14:40 109 H 20 106/69 94 05/16/21 11:37 36.5 C 95 H 20 102/75 95
--- NOTE | 2021-05-17 07:08 | Communication Note ---
Date of Service: May 17, 2021 Patient converted to sinus rhythm overnight as confirmed on EKG performed 05/17/21 at 12:09 am. Sinus rhythm with LBBB morphology noted, QRS 124 ms.QTc stable at 439 ms. 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 Await BMP results.
[2021-05-17] MEDS: POTASSIUM CHLORIDE CRTAB 20 MEQ TABCR PO SCH ×2 (08:57→21:01)
[2021-05-17] MEDS: MULTIVITAMIN TAB PO SCH (08:58)
[2021-05-17] MEDS: guaiFENesin 600 MG TABCR PO SCH ×2 (08:58→21:01)
[2021-05-17] MEDS: METOPROLOL TARTRATE 100 MG TAB PO SCH (08:59)
[2021-05-17] MEDS: APIXABAN 5 MG TABLET PO SCH ×2 (08:59→20:59)
[2021-05-17] MEDS: AMIODARONE 200 MG TAB PO SCH ×2 (08:59→17:51)
[2021-05-17] MEDS: ASPIRIN 81 MG ECTAB PO SCH (08:59)
[2021-05-17] MEDS: PANTOprazole 40 MG TAB PO SCH (09:00)
[2021-05-17 09:06] LABS: Hematocrit (blood only) 40.8 % (42-52); Hemoglobin 12.8 g/dL (14.0-18.0); Mean Corpuscular Hemoglobin 26.9 pg (25-34); Mean Corpuscular Hgb Conc 31.4 g/dL (32-36); Mean Corpuscular Volume 85.9 fL (80-100); Mean Platelet Volume 11.1 fL (7.4-10.4); Platelet Count 294 K/uL (130-400); RDW Coefficient of Variation 16.7 % (11.5-14.5); RDW Standard Deviation 50.8 fL (36.4-46.3); Red Blood Count 4.75 M/uL (4.7-6.1); White Blood Count 11.12 K/uL (4.8-10.8)
[2021-05-17] MEDS: INSULIN GLARGINE SOLOSTAR 100 UNITS/ML 3 ML PEN SC SCH (09:29)
[2021-05-17] MEDS: INSULIN ASPART 100 UNITS/ML 3 ML PEN SC SCH ×4 (09:29→21:35)
[2021-05-17 09:34] LABS: Albumin Level 3.4 gm/dl (3.4-5.0); BUN Creatinine Ratio 25.5 (10-20); Creatinine Clr Calc Pharmacy 50.4 ml/min; Est GFR (African American) 42.8 ml/min; Est GFR (Non-African American) 36.9 ml/min; Magnesium 2.2 mg/dl (1.8-2.4); Potassium 4.2 mmol/L (3.5-5.1)
[2021-05-17 09:37] LABS: Albumin Globulin Ratio 0.9 (0.9-2); Bilirubin,Total 0.9 mg/dl (0.2-1); Total Protein 7.4 gm/dl (6.4-8.2)
--- NOTE | 2021-05-17 11:21 | Cardiology Progress Note ---
Date of Service May 17, 2021 Assessment & Plan (1) Acute HFrEF (heart failure with reduced ejection fraction): (2) NICM (nonischemic cardiomyopathy): (3) Atrial fibrillation: (4) SARS-CoV-2 positive: Plan: Pt seen in respiratory isolation wing. Pulx ox 93% on room air. No clinical pneumonia. Diuresed 3 L with improvement in dyspnea, heart rate trend better, edema better. Creatinine has trended up to 1.87 today. This may be related to the hemodynamic effects of the atrial fibrillation, low ejection fraction, and diuretics. Hold off on further diuretic therapy today. Continue IV amiodarone, oral amiodarone load for atrial fibrillation. I discussed with patient the benefits and risks of amiodarone treatment including potential for hepatic, thyroid, pulmonary toxicity. At present given his severe left ventricular systolic dysfunction, acute systolic heart failure decompensation, I feel that the benefit of treatment this medication outweighs the risks. Baseline LFTs and thyroid function tests are within normal limits. Transition metoprolol to metoprolol succinate, 100 mg twice daily. Continue Eliquis for stroke prophylaxis. Reassess renal function tomorrow. Remain in the hospital, given worsening creatinine. I anticipate need for daily diuretic at time of discharge, but unable to determine dose at present. Admission and Anticipated Discharge Date Admission Date: May 15, 2021 Subjective Patient seen and allergy follow-up. He denies any acute complaints. He is comfortable. Telemetry reviewed. Last evening, 05/16/2021, patient converted from atrial fibrillation to sinus rhythm at 20: 15 without conversion pause. He remains in sinus rhythm on telemetry this morning with occasional PACs and PVCs. His rates have been in the range of 78 bpm. A brief run of nonsustained ventricular tachycardia was observed at 1005 this morning. He continues to deny cough. Pulse oximetry remained stable, 93% on room air. He is afebrile. Review of Systems Review of Systems: All systems reviewed & are unremarkable except as noted in HPI & below Physical Exam Physical Exam: Temp Pulse Resp BP Pulse Ox 36.4 C L 76 19 127/85 93 05/17/21 08:21 05/17/21 08:21 05/17/21 08:21 05/17/21 08:21 05/17/21 08:21 Constitutional: WD/WN, vitals as above Respiratory: Auscultation: + diminished lung sounds (Mildly reduced breath sounds bilaterally at the bases); no crackles and no rales Cardiovascular: Rate/Rhythm: regular rate Heart Sounds: no murmur Extremities: + edema (Trace to 1+ lower extremity edema.) Neurologic: PERRL, EOMI, accommodation nl, no face palsy, no dysarthria Results & Data ([facility]) Vital Signs (Past 12 Hours) Vital Signs Temp Pulse Pulse Pulse Resp BP BP 05/17/21 08:21 36.4 C L 76 19 127/85 05/17/21 04:00 36.4 C L 77 18 117/81 05/17/21 01:42 73 103/82 05/17/21 00:00 80 Pulse Ox Pulse Ox 05/17/21 08:21 93 05/17/21 04:00 92 92 05/17/21 01:42 92 05/17/21 00:00
--- NOTE | 2021-05-17 11:57 | Communication Note ---
Date of Service: May 17, 2021 I called pt's spouse, Gillian, and provided updates and answered her questions.
[2021-05-17] MEDS: AMIODARONE / D5W 360 MG/200 ML BAG IV SCH (12:09)
[2021-05-17] MEDS: LATANOPROST 0.005% OP SOLN 2.5 ML BTL OPB SCH (21:00)
[2021-05-17] MEDS: METOPROLOL SUCC 50MG EXT REL TAB PO SCH (21:02)
--- NOTE | 2021-05-17 23:53 | Hospitalist Progress Note ---
Date of Service May 17, 2021 Assessment & Plan (1) Acute HFrEF (heart failure with reduced ejection fraction): (2) SOB (shortness of breath): Plan: Presented on admission with SOB and lower extremities edema CXR showed mild cardiomegaly and pulmonary vascular congestion. Possible pulmonary edema. Started on Lasix 40 mg IV twice daily on admission Has been diuresing very well Cardiology on board Lasix held today due to elevate creatinine 1.8 Continue monitor BMP Clinically improved Afib Heart rate improved Continue IV amiodarone drip Currently on NSR with rate control ( Converted last night) Per cardiology no plan for cardioversion since patient has been in A. fib for the past few days Due to positive Covid 19 no plan to proceed with EDU Continue amiodarone 200 mg twice daily p.o. and metoprolol 100 mg twice daily Continue Eliquis for stroke prophylaxis Continue monitor closely COVID-19 Clinically stable Saturating well on room air Does not meet the criteria for steroid around them severe We will continue monitor closely Diabetes type 2 Most recent hemoglobin A1c 7.8 on April 2021 Continue to hold Metformin during inpatient hospital course On insulin sliding scale and Lantus while inpatient Continue monitor blood sugar Obstructive sleep apnea Continue CPAP DVT prophylaxis. Eliquis Full code Ms. Eva James, contact #[phone]. Admission and Anticipated Discharge Date Admission Date: May 15, 2021 Subjective Patient seen and examined for follow up afib Sitting in bed with no distress He was converted to NSR last night around 8 PM Tele monitor showed nonsustained ventricular tachycardia around at 1005 this morning. Saturated well on RA Denies any chest pain, palpitation, dizziness and SOB Review of Systems Review of Systems: All systems reviewed & are unremarkable except as noted in Subjective Physical Exam Physical Exam: General- No acute distress Head- atraumatic Eyes- PERRL, EOMI, ENT- oropharynx clear Neck- supple, no JVD Lungs- clear to auscultation Heart- irregular rhythm; no murmur Abdomen- normal bowel sounds, soft, nontender Extremities- no calf tenderness, +trace edema Neuro- alert, oriented x 3; PERRL, EOMI; no facial palsy; no dysarthria Skin- warm & dry Results & Data Results & Data ([facility]) Vital Signs (Past 12 Hours) Vital Signs Temp Pulse Resp BP BP Pulse Ox 05/17/21 23:01 36.5 C 68 16 104/74 05/17/21 20:09 36.3 C L 69 18 105/74 92 05/17/21 15:41 36.4 C L 69 19 106/76 95 05/17/21 12:16 36.5 C 79 18 131/89 93
[2021-05-18] MEDS: AMIODARONE / D5W 360 MG/200 ML BAG IV SCH (00:11)
--- NOTE | 2021-05-18 07:01 | Electrocardiogram Report ---
Test Reason : Blood Pressure : / mmHG Vent. Rate : 074 BPM Atrial Rate : 074 BPM P-R Int : 162 ms QRS Dur : 124 ms QT Int : 396 ms P-R-T Axes : 025 -58 069 degrees QTc Int : 439 ms Normal sinus rhythm Left axis deviation Non-specific intra-ventricular conduction block Possible Inferior infarct Poor R wave progression, consider anterior NE vs. lead placement vs. LVH Abnormal ECG When compared with ECG of 16-MAY-2021 05:27, Sinus rhythm has replaced Atrial fibrillation Confirmed by Huan Lorenzo ([id number]) on 05/18/2021 7:01:03 AM Referred By: REFERRED SELF Confirmed By:Huan Lorenzo
[2021-05-18 07:45] LABS: Hematocrit (blood only) 39.6 % (42-52); Hemoglobin 12.7 g/dL (14.0-18.0); Mean Corpuscular Hemoglobin 26.9 pg (25-34); Mean Corpuscular Hgb Conc 32.1 g/dL (32-36); Mean Corpuscular Volume 83.9 fL (80-100); Mean Platelet Volume 10.8 fL (7.4-10.4); Platelet Count 272 K/uL (130-400); RDW Coefficient of Variation 16.9 % (11.5-14.5); RDW Standard Deviation 49.5 fL (36.4-46.3); Red Blood Count 4.72 M/uL (4.7-6.1); White Blood Count 10.63 K/uL (4.8-10.8)
[2021-05-18 08:12] LABS: BUN Creatinine Ratio 28.3 (10-20); Calcium 8.8 mg/dl (8.5-10.1); Creatinine Clr Calc Pharmacy 56.9 ml/min; Est GFR (African American) 49.4 ml/min; Est GFR (Non-African American) 42.6 ml/min
[2021-05-18] MEDS ORDERED: AMIODARONE 200 MG TAB PO ONE (08:20)
[2021-05-18] MEDS: INSULIN ASPART 100 UNITS/ML 3 ML PEN SC SCH ×4 (08:53→23:34)
[2021-05-18] MEDS: ASPIRIN 81 MG ECTAB PO SCH ×2 (09:03→11:28)
[2021-05-18] MEDS: APIXABAN 5 MG TABLET PO SCH ×2 (09:04→21:48)
[2021-05-18] MEDS: INSULIN GLARGINE SOLOSTAR 100 UNITS/ML 3 ML PEN SC SCH (09:05)
[2021-05-18] MEDS: guaiFENesin 600 MG TABCR PO SCH ×2 (09:05→21:48)
[2021-05-18] MEDS: METOPROLOL SUCC 50MG EXT REL TAB PO SCH ×2 (09:08→21:49)
[2021-05-18] MEDS: POTASSIUM CHLORIDE CRTAB 20 MEQ TABCR PO SCH ×2 (09:09→21:54)
[2021-05-18] MEDS: PANTOprazole 40 MG TAB PO SCH (09:10)
[2021-05-18] MEDS: MULTIVITAMIN TAB PO SCH (09:10)
--- NOTE | 2021-05-18 12:54 | Cardiology Progress Note ---
Date of Service May 18, 2021 Assessment & Plan (1) Acute HFrEF (heart failure with reduced ejection fraction): (2) Atrial fibrillation: (3) JOSE DE JESUS (obstructive sleep apnea): Plan: Creatinine improved to 1.6 today. Lasix, spironolactone, and Entresto remain on hold for mild elevation in creatinine, however, [employer] will need daily diuretic. Remains in SR. Discontinue IV amiodarone. Encourage ambulation in patient's isolation (negative pressure room) Unable to ambulate in the hallway in isolation unit. Continue oral amiodarone load (increased dose to 400 mg TID). Continue metoprolol. Holding diuretic. Keep in hospital , repeat BMP in am. Continue Eliquis for stroke prevention. Admission and Anticipated Discharge Date Admission Date: May 15, 2021 Subjective Patient seen in follow up. He feels well. No complaints. Review of Systems Review of Systems: All systems reviewed & are unremarkable except as noted in HPI & below Physical Exam Physical Exam: Temp Pulse Resp BP Pulse Ox 36.5 C 68 16 112/81 95 05/18/21 11:37 05/18/21 11:37 05/18/21 11:37 05/18/21 11:37 05/18/21 11:37 Constitutional: WD/WN, vitals as above Respiratory: Auscultation: + diminished lung sounds (mildly reduced breath sounds at the bases ) Cardiovascular: Rate/Rhythm: regular rate Heart Sounds: no murmur Extremities: + edema (1+ bilteral LE edema ) Gastrointestinal (Abdomen): normal bowel sounds, soft, nontender, no hepatosplenomegaly Neurologic: PERRL, EOMI, accommodation nl, no face palsy, no dysarthria Results & Data ([facility]) Vital Signs (Past 12 Hours) Vital Signs Temp Pulse Pulse Resp BP BP Pulse Ox 05/18/21 11:37 36.5 C 68 16 112/81 95 05/18/21 08:17 36.5 C 70 19 114/73 95 05/18/21 04:29 36.3 C L 67 16 102/75 92 05/18/21 04:00 Pulse Ox 05/18/21 11:37 05/18/21 08:17 05/18/21 04:29 05/18/21 04:00 92 Laboratory Results CBC 05/18/21 Range/Units 06:57 WBC 10.63 (4.8-10.8) K/uL RBC 4.72 (4.7-6.1) M/uL Hgb 12.7 L (14.0-18.0) g/dL Hct 39.6 L (42-52) % Plt Count 272 (130-400) K/uL Comprehensive Metabolic Panel 05/18/21 Range/Units 06:57 Sodium 134 L (136-145) mmol/L Potassium 4.0 (3.5-5.1) mmol/L Chloride 101 (98-107) mmol/L Carbon Dioxide 25 (21-32) mmol/L BUN 47 H (7-18) mg/dl Creatinine 1.66 H (0.6-1.4) mg/dl Glucose 151 H (70-99) mg/dl Calcium 8.8 (8.5-10.1) mg/dl Intake and Output 05/17/21 05/18/21 05/18/21 22:59 06:59 14:59 Intake Total 518.57 / 1345.00 81.43 / 1345.00 118.57 / 118.57 Output Total 326 / 1104 201 / 1104 Balance 192.57 / 241.00 -119.57 / 241.00 118.57 / 118.57 Intake: IV 118.57 / 200.00 81.43 / 200.00 118.57 / 118.57 Amiodarone / D5w 360 mg In 200 118.57 / 200.00 81.43 / 200.00 118.57 / 118.57 ml @ 0.5 MG/MIN 16.667 mls/hr IV .Q12H [facility] Rx#:[id number] Oral 400 / 1145 Output: Urine 325 / 1100 200 / 1100 # Bowel Movements Other: Weight 124.1 kg Weight Measurement Method Standing Scale
[2021-05-18] MEDS: AMIODARONE 200 MG TAB PO SCH ×2 (13:01→17:35)
[2021-05-18] MEDS: LATANOPROST 0.005% OP SOLN 2.5 ML BTL OPB SCH (21:49)
--- NOTE | 2021-05-18 23:01 | Hospitalist Progress Note ---
Date of Service May 18, 2021 Assessment & Plan (1) Acute HFrEF (heart failure with reduced ejection fraction): (2) SOB (shortness of breath): Plan: Presented on admission with SOB and lower extremities edema CXR showed mild cardiomegaly and pulmonary vascular congestion. Possible pulmonary edema. Started on Lasix 40 mg IV twice daily on admission Has been diuresing very well Cardiology on board Lasix, spironolactone and Entresto have been on hold due to elevate creatinine Continue monitor BMP Clinically improved Afib Heart rate improved Continue IV amiodarone drip Currently on NSR with rate control ( Converted last night) Per cardiology no plan for cardioversion since patient has been in A. fib for the past few days Due to positive Covid 19 no plan to proceed with EDU Continue amiodarone 200 mg twice daily p.o. and metoprolol 100 mg twice daily IV amiodarone drip discontinued Continue Eliquis for stroke prophylaxis Continue monitor closely COVID-19 Clinically stable Saturating well on room air Does not meet the criteria for steroid around them severe We will continue monitor closely Diabetes type 2 Most recent hemoglobin A1c 7.8 on April 2021 Continue to hold Metformin during inpatient hospital course On insulin sliding scale and Lantus while inpatient Continue monitor blood sugar Obstructive sleep apnea Continue CPAP DVT prophylaxis. Eliquis Full code Ms. Eva James, contact #[phone]. Admission and Anticipated Discharge Date Admission Date: May 15, 2021 Subjective Patient seen and examined for follow Sitting at the edge of the bed with no distress Saturated well on RA Denies any chest pain, palpitation, dizziness and SOB Review of Systems Review of Systems: All systems reviewed & are unremarkable except as noted in Subjective Physical Exam Physical Exam: General- No acute distress Head- atraumatic Eyes- PERRL, EOMI, ENT- oropharynx clear Neck- supple, no JVD Lungs- clear to auscultation Heart- regular rhythm; no murmur Abdomen- normal bowel sounds, soft, nontender Extremities- no calf tenderness, +trace edema Neuro- alert, oriented x 3; PERRL, EOMI; no facial palsy; no dysarthria Skin- warm & dry Results & Data Results & Data ([facility]) Vital Signs (Past 12 Hours) Vital Signs Temp Pulse Pulse Pulse Resp BP Pulse Ox 05/18/21 20:00 36.4 C L 60 20 123/75 92 05/18/21 16:45 70 05/18/21 16:44 83 05/18/21 15:57 36.5 C 69 19 112/78 95 05/18/21 11:37 36.5 C 68 16 112/81 95
[2021-05-19 07:29] LABS: BUN Creatinine Ratio 29.4 (10-20); Calcium 8.7 mg/dl (8.5-10.1); Creatinine Clr Calc Pharmacy 63.2 ml/min; Est GFR (African American) 55.8 ml/min; Est GFR (Non-African American) 48.2 ml/min; Potassium 4.3 mmol/L (3.5-5.1)
[2021-05-19] MEDS: AMIODARONE 200 MG TAB PO SCH ×2 (07:39→09:28)
[2021-05-19] MEDS: APIXABAN 5 MG TABLET PO SCH (09:27)
[2021-05-19] MEDS: ASPIRIN 81 MG ECTAB PO SCH (09:27)
[2021-05-19] MEDS: guaiFENesin 600 MG TABCR PO SCH (09:27)
[2021-05-19] MEDS: MULTIVITAMIN TAB PO SCH (09:27)
[2021-05-19] MEDS: POTASSIUM CHLORIDE CRTAB 20 MEQ TABCR PO SCH (09:27)
[2021-05-19] MEDS: PANTOprazole 40 MG TAB PO SCH (09:27)
[2021-05-19] MEDS: METOPROLOL SUCC 50MG EXT REL TAB PO SCH (09:28)
--- NOTE | 2021-05-19 09:34 | XRay Report ---
XR chest 1V portable HISTORY: 66 years-old Male CHF, COVID positive acute shortness of breath. COVID Positive. COMPARISON: Chest radiograph 05/14/2021 TECHNIQUE: Portable AP view of the chest FINDINGS: Left subclavian pacer/AICD. Moderate cardiomegaly. Pulmonary vascular congestion with reticular inter stitial opacities, stable from comparison. No pneumothorax. Small layering pleural effusions with mil d left greater than right bibasilar opacities, mildly improved from comparison. Degenerative changes of the shoulders and spine. IMPRESSION: 1. Cardiomegaly with pulmonary edema. 2. Small pleural effusions with mild improvement of the bibasilar opacities. ACT 112: Negative or not required by law. The above report was generated using voice recognition software. It may contain grammatical, syntax o r spelling errors. Electronically signed by: Fady Beyer M.D. 05/19/2021 9:32 AM
[2021-05-19] MEDS: INSULIN ASPART 100 UNITS/ML 3 ML PEN SC SCH ×2 (09:40→12:40)
[2021-05-19] MEDS: INSULIN GLARGINE SOLOSTAR 100 UNITS/ML 3 ML PEN SC SCH (09:40)
--- NOTE | 2021-05-19 11:40 | Cardiology Progress Note ---
Date of Service May 19, 2021 Assessment & Plan (1) Acute HFrEF (heart failure with reduced ejection fraction): (2) Atrial fibrillation: (3) JOSE DE JESUS (obstructive sleep apnea): Plan: Patient reports his spouse was tested for COVID-19 and was negative. Patient's creatinine improved to 1.5 today. Proceed with furosemide 20 mg IV x1 today. Remains in sinus rhythm. 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 Continue to hold Entresto and spironolactone at discharge. Plan for cardiology follow-up as an outpatient in 7 to 14 days. Basic metabolic panel will be reassessed at that time for follow-up of renal function and electrolytes. Patient advised to continue home isolation for Covid 19to complete 10-day course post discharge. Admission and Anticipated Discharge Date Admission Date: May 15, 2021 Subjective Patient seen in follow up. Patient states he feels. Denies any subjective palpitations. Telemetry reveals sinus rhythm in the 70s. Review of Systems Review of Systems: All systems reviewed & are unremarkable except as noted in HPI & below Physical Exam Physical Exam: Temp Pulse Resp BP Pulse Ox 36.6 C 68 18 113/82 95 05/19/21 11:14 05/19/21 11:14 05/19/21 11:14 05/19/21 11:14 05/19/21 11:14 Constitutional: cooperative; no acute distress Respiratory: Auscultation: + diminished lung sounds (Mildly reduced breath sounds bilaterally at the bases); no crackles, no rales and no rhonchi Cardiovascular: Rate/Rhythm: regular rhythm Heart Sounds: no murmur Extremities: + edema (1+ lower extremity edema) Gastrointestinal (Abdomen): normal bowel sounds, soft, nontender, no hepatosplenomegaly Neurologic: PERRL, EOMI, accommodation nl, no face palsy, no dysarthria Results & Data ([facility]) Vital Signs (Past 12 Hours) Vital Signs Temp Pulse Pulse Resp BP Pulse Ox 05/19/21 11:14 36.6 C 62 68 18 113/82 95 05/19/21 07:45 36.5 C 70 18 116/80 93 05/19/21 04:06 36.4 C L 62 24 106/86 97 Diagnostic Findings Portable chest x-ray performed this morning, image reviewed independently, pulmonary edema with small pleural effusions, mildly improved compared to admission.
[2021-05-19] MEDS ORDERED: FUROSEMIDE 20 MG in SYRINGE 0 ML IV ONE (11:41)
[2021-05-19] MEDS ORDERED: FUROSEMIDE 40 MG/4 ML VIAL IV ONE (11:45)
--- NOTE | 2021-05-19 14:27 | Discharge Summary ---
Date of Service May 19, 2021 Admission HPI Per Admitting Provider History obtained from patient, family, and records. Medical history significant for chronic systolic heart failure secondary to nonischemic cardiomyopathy (EF less than 20%, TTE 2020) sp ICD, valvular heart disease (moderate to severe MR, mild TR on recent TTE), nonocclusive CAD as per records, A. fib on Eliquis, HTN, hyperlipidemia/statin intolerance, JOSE DE JESUS on CPAP, DM2 on oral medications, CRI (recent creatinine of 1.4), chronic anemia (baseline hemoglobin 12-13), past tobacco abuse. 2 weeks ago, patient was in [place] with family for a vacation. Last week (last 2 days of the trip), patient started feeling poorly. Poor appetite. Shortness of breath mostly on exertion. No chest pain. Occasional palpitations. Upon return home to [place], 10 pound weight gain noted on his scale at home. Note of orthopnea symptoms with some leg swelling. Dry cough symptoms without fever chills. Patient not sure about Covid 19 contacts given recent airplane travel. Patient completed COVID-19 vaccination. Patient seen at [facility] Cardiology office 3 days ago. EKG showed atrial fibrillation. ICD interrogation showed atrial fibrillation with ventricular rates greater than 100 bpm for the last 11 days. Numerous NSVT episodes. Outpatient CXR showed pulmonary congestion, pleural effusion. May 12, 2021 TTE Interpretation Summary : Atrial fibrillation with rapid ventricular response was present during the echocardiogram study. The left ventricular cavity size is severely enlarged. The septal motion is abnormal consistent with intrventricular conduction delay. There is severe diffuse left ventricular hypokinesis. The qualitative LV ejection fraction is <20% (severely reduced). The left atrium is severely enlarged. Moderate to severe mitral regurgitation is present. The mitral regurgitation jet is eccentric and wall impinging. Mild tricuspid regurgitation is present. The inferior vena cava is mildly dilated and collapses less than 50% with inspiration consistent with an intermediate right atrial pressure of 8 millimeters Hg. Mild pulmonary hypertension is present. The estimated pulmonary artery systolic pressure=44 millimeters Hg. Compared to the prior study performed 02/28/2019, atrial fibrillation with rapid ventricular response is now present. The left ventricular ejection fraction was estimated to be 25-29% and 2019 as compared to less than 20% on the present study. Moderate to severe mitral regurgitation is now present. Patient's carvedilol and HCTZ stopped. Toprol-XL 100 mg twice daily with Eliquis twice daily started for new onset A. fib. Lasix 40 mg daily initiated for CHF. Worsening symptoms despite compliance with new medications. At the ER, IV Lopressor and Cardizem boluses given for rapid A. fib. 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 Exam Per Admitting Provider GENERAL: Comfortable, slightly anxious, morbidly obese, episodic tachypnea SKIN: Pallor,, warm HEENT: Partial alopecia, bespectacled, pale palpebral conjunctivae, no ptosis, dry buccal mucosa NECK : Supple, short neck, no tenderness CHEST : Decreased breath sounds, no tenderness HEART : Tachycardic, irregular,, no obvious murmurs ABDOMEN: Some distention, nontender EXTREMITIES : Bilateral LE swelling, no LE tenderness, no other conspicuous deformities noted NEUROLOGIC : Coherent, no facial asymmetry, no other gross focality Principal Diagnosis Acute HFrEF (heart failure with reduced ejection fraction): SOB (shortness of breath): Afib COVID-19 Diabetes type 2 Obstructive sleep apnea Discharge Exam General- No acute distress Head- atraumatic Eyes- PERRL, EOMI, ENT- oropharynx clear Neck- supple, no JVD Lungs- clear to auscultation Heart- regular rhythm; no murmur Abdomen- normal bowel sounds, soft, nontender Extremities- no calf tenderness, +trace edema Neuro- alert, oriented x 3; PERRL, EOMI; no facial palsy; no dysarthria Skin- warm & dry Discharge Data Allergies Allergy/AdvReac Type Severity Reaction Status Date / Time No Known Allergies Allergy Verified 05/15/21 00:55 Consultations 05/15/21 01:42 ED Decision to Admit Stat 05/15/21 03:59 Consult Cardiology Routine Ordered Studies XR chest 1V portable HISTORY: 66 years-old Male CHF, COVID positive acute shortness of breath. COVID Positive. COMPARISON: Chest radiograph 05/14/2021 TECHNIQUE: Portable AP view of the chest FINDINGS: Left subclavian pacer/AICD. Moderate cardiomegaly. Pulmonary vascular congestion with reticular interstitial opacities, stable from comparison. No pneumothorax. Small layering pleural effusions with mild left greater than right bibasilar opacities, mildly improved from comparison. Degenerative changes of the shoulders and spine. IMPRESSION: 1. Cardiomegaly with pulmonary edema. 2. Small pleural effusions with mild improvement of the bibasilar opacities. ACT 112: Negative or not required by law. The above report was generated using voice recognition software. It may contain grammatical, syntax or spelling errors. Electronically signed by: Fady Beyer M.D. 05/19/2021 9:32 AM Dictated: 05/19/21930Transcribed: 05/19/21930 XR chest 1V portable CLINICAL HISTORY: SOB COMPARISON STUDY: April 27, 2019 FINDINGS: No pneumothorax. No pleural effusion. Reticular nodular opacities are seen bilaterally with superimposed hazy opacities in bilateral mid to lower lung region which could represent chronic fi brosis with possible superimposed pulmonary edema. Left retrocardiac opacity is in the right infrahilar opacities might represent atelectasis or infiltrates. Cardiac silhouette is mildly enlarged. Aorta is tortuous. Mild pulmonary vascular congestion is seen.. Osseous structures: Mild degenerative changes of the right shoulder. Vertebral bodies are not well seen. Left-sided single lead AICD is again noted with battery pack partially obscuring left lung parenchyma. IMPRESSION: 1. Mild cardiomegaly and pulmonary vascular congestion. Possible pulmonary edema. 2. Atelectasis/infiltrates at the right infrahilar and left retrocardiac region. 3. The rest of findings as above. ACT 112: Negative or not required by law. The above report was generated using voice recognition software. It may contain grammatical, syntax or spelling errors. Electronically signed by: Nubia Shaw DO 05/15/2021 7:23 AM Dictated: 05/15/2116Transcribed: 05/15/21715 Hospital Course (1) Acute HFrEF (heart failure with reduced ejection fraction): (2) SOB (shortness of breath): Presented on admission with SOB and lower extremities edema CXR showed mild cardiomegaly and pulmonary vascular congestion. Possible pulmonary edema. Started on Lasix 40 mg IV twice daily on admission Has been diuresing very well Cardiology on board Lasix, spironolactone and Entresto have been on hold due to elevate creatinine Continue monitor BMP Clinically improved Afib Heart rate improved Continue IV amiodarone drip Currently on NSR with rate control ( Converted last night) Per cardiology no plan for cardioversion since patient has been in A. fib for the past few days Due to positive Covid 19 no plan to proceed with EDU Continue amiodarone 200 mg twice daily p.o. and metoprolol 100 mg twice daily IV amiodarone drip discontinued Continue Eliquis for stroke prophylaxis Continue monitor closely COVID-19 Clinically stable Saturating well on room air Does not meet the criteria for steroid around them severe We will continue monitor closely Diabetes type 2 Most recent hemoglobin A1c 7.8 on April 2021 Continue to hold Metformin during inpatient hospital course On insulin sliding scale and Lantus while inpatient Continue monitor blood sugar Obstructive sleep apnea Continue CPAP DVT prophylaxis. Eliquis Full code Ms. Eva James, contact #[phone]. Total Time Total Time Spent Total Time Spent (In Minutes): 35 minutes Discharge Plan Discharge Items Patient Disposition: Home - Self-Care Reason For Visit: SOB, COUGH, FLUID RETENTION Discharge Diagnosis: Acute HFrEF (heart failure with reduced ejection fraction): SOB (shortness of breath): Afib COVID-19 Diabetes type 2 Obstructive sleep apnea Activity: Resume your previous activity Non-emergency contact: Primary Care Provider and Amf Mechanic Call non-emergency contact if: you have any medication questions Follow-up/Referrals: Leah Durán DO [Primary Care Provider] - (Date & Time 05/23/2021 2:20 PM Provider Leah Durán DO Department [facility] PLEASE NOTE THAT THIS IS A TELEHEALTH APPOINTMENT. PLEASE FOLLOW THE INSTRUCTIONS PROVIDED IN YOUR EMAIL. IF YOU HAVE ANY QUESTIONS REGARDING THIS APPOINTMENT, PLEASE CALL ) Harlan Aldridge DO [Amf Mechanic] - (Date & Time 05/28/2021 10:00 AM Provider Harlan Aldridge DO Department Cardiology, [facility] ) Diet: Carb Consistent or DM2 and Heart Healthy Addtl Attending Provider Instructions: Follow up with your primary care provider within 1 week Follow up with cardiology ( office will call you for the appointment) Check BMP in 1 week to monitor your electrolytes and renal function Continue to wear mask and practice social distance Seek medical attention if you develop any shortness of breath Please hold Entresto and Spironolactone for now. Furosemide 40 mg by mouth 1 time per day starting 05/20/2021. Home Isolation COVID-19 Instructions The following information about Home Isolation is from the CDC Website: https://www.cdc.gov/coronavirus/2019-ncov/hcp/imgskosp-dkxbzki-vjfuij.html Stay home except to get medical care People who are mildly ill with COVID-19 are able to isolate at home during their illness. You should restrict activities outside your home, except for getting medical care. Do not go to work, school, or public areas. Avoid using public transportation, ride-sharing, or taxis. Separate yourself from other people and animals in your home People: As much as possible, you should stay in a specific room and away from other people in your home. Also, you should use a separate bathroom, if available. Animals: You should restrict contact with pets and other animals while you are sick with COVID-19, just like you would around other people. Although there have not been reports of pets or other animals becoming sick with COVID-19, it is still recommended that people sick with COVID-19 limit contact with animals until more information is known about the virus. When possible, have another member of your household care for your animals while you are sick. If you are sick with COVID-19, avoid contact with your pet, including petting, snuggling, being kissed or licked, and sharing food. If you must care for your pet or be around animals while you are sick, wash your hands before and after you interact with pets and wear a face mask. Call ahead before visiting your doctor If you have a medical appointment, call the healthcare provider and tell them that you have or may have COVID-19. This will help the healthcare providers office take steps to keep other people from getting infected or exposed. Wear a face mask You should wear a face mask when you are around other people (e.g., sharing a room or vehicle) or pets and before you enter a healthcare providers office. If you are not able to wear a face mask (for example, because it causes trouble breathing), then people who live with you should not stay in the same room with you, or they should wear a face mask if they enter your room. Cover your coughs and sneezes Cover your mouth and nose with a tissue when you cough or sneeze. Throw used tissues in a lined trash can. Immediately wash your hands with soap and water for at least 20 seconds or, if soap and water are not available, clean your hands with an alcohol-based hand pm head cook that contains at least 60% alcohol. Clean your hands often Wash your hands often with soap and water for at least 20 seconds, especially after blowing your nose, coughing, or sneezing; going to the bathroom; and before eating or preparing food. If soap and water are not readily available, use an alcohol-based hand pm head cook with at least 60% alcohol, covering all surfaces of your hands and rubbing them together until they feel dry. Soap and water are the best option if hands are visibly dirty. Avoid touching your eyes, nose, and mouth with unwashed hands. Avoid sharing personal household items You should not share dishes, drinking glasses, cups, eating utensils, towels, or bedding with other people or pets in your home. After using these items, they should be washed thoroughly with soap and water. Clean all high-touch surfaces everyday High touch surfaces include counters, tabletops, doorknobs, bathroom fixtures, toilets, phones, keyboards, tablets, and bedside tables. Also, clean any surfaces that may have blood, stool, or body fluids on them. Use a household cleaning spray or wipe, according to the label instructions. Labels contain instructions for safe and effective use of the cleaning product including precautions you should take when applying the product, such as wearing gloves and making sure you have good ventilation during use of the product. Monitor your symptoms Seek prompt medical attention if your illness is worsening (e.g., difficulty breathing).Beforeseeking care, call your healthcare provider and tell them that you have, or are being evaluated for, COVID-19. Put on a face mask before you enter the facility. These steps will help the healthcare providers office to keep other people in the office or waiting room from getting infected or exposed. Ask your healthcare provider to call the local or [facility] health department. Persons who are placed under active monitoring or facilitated self- monitoring should follow instructions provided by their local health department or occupational health professionals, as appropriate. When working with your local health department check their available hours. If you have a medical emergency and need to call 911, notify the dispatch personnel that you have, or are being evaluated for COVID-19. If possible, put on a face mask before emergency medical services arrive. Discontinuing home isolation Patients with confirmed COVID-19 should remain under home isolation precautions until the risk of secondary transmission to others is thought to be low. The decision to discontinue home isolation precautions should be made on a [id number] basis, in consultation with healthcare providers and [facility] and local health departments. Coronavirus disease 2019 (COVID-19) is a virus that causes a respiratory illness. It is caused by a coronavirus called 2019 novel coronavirus (2019- nCoV). There are many types of coronavirus. Coronaviruses are a very common cause of bronchitis. They may sometimes cause lung infection(pneumonia). Symptoms can range from mild to severe respiratory illness. These viruses are also foundin some animals. COVID-19 was first found in people in [facility], in late 2018. In 2019, several cases of COVID-19 have been confirmed in the [place] Public health officials are working to find the source. How the virus spreads is not yet fully known. It may be spread through droplets of fluid that a person coughs or sneezes into the air. It may be spread if you touch a surface with virus on it, such as a handle or object, and then touch your mouth. What are the symptoms of COVID-19? Some people have no symptoms or mild symptoms. Symptoms may appear 2 to 14 days after contact with the virus. Symptoms can include: Fever Coughing Trouble breathing What are possible complications from COVID-19? In many cases, this virus can cause infection (pneumonia) in both lungs. In some cases, this can cause . How is COVID-19 diagnosed? Your healthcare provider will ask about your symptoms. He or she will also ask about your recent travel and contact with sick people. Testing for the virus is only done through the CDC. If yourhealthcare provider thinks you may have COVID- 19, he or she will work with your local health department and the CDC on testing. Follow all instructions from your healthcare provider. COVID-19 is diagnosed by: Nasal and throat swab. A cotton-tipped swab is wiped inside your nose or throat. This is done to check for viruses in your nasal mucus. Sputum culture. A small sample of mucus coughed from your lungs (sputum) is collected if you have a cough. It is checked for the virus. How is COVID-19 treated? There is currently no medicine to treat the virus. Treatment is done to help your body while it fights the virus. This is known as supportive care. Supportive care may include: Pain medicine. These include acetaminophen and ibuprofen. They are used to help ease pain and reduce fever. Bed rest. This helps your body fight the illness. For severe illness, you may need to stay in the hospital. Care during severe illness may include: IV (intravenous) fluids.These are given through a vein to help keep your body hydrated. Oxygen. Supplemental oxygen or ventilation with a breathing machine (ventilator) may be given. This is done to keep enough oxygen in your body. Are you at risk for COVID-19? If youve been to a place where people have been sick with this virus, you are at risk for infection. You are at risk if you: Recently traveled to an affected area Had contact with a sick person who recently traveled to this area Had contact with a person who was diagnosed with COVID-19 How can COVID-19 be prevented? There is no vaccine yet. The best prevention is to not have contact with the virus. The CDC advises that people should not travel to areas where there are COVID-19 outbreaks right now for any reason that is not urgent. To help prevent spreading the infection, wash your hands often, or use an alcohol-basedhand pm head cook. If you are in an area with COVID-19: Wash your hands often. Or use an alcohol-based hand pm head cook often. Only touch your eyes, nose, or mouth with clean hands. Dont have contact with people who are sick. Follow local instructions about being in public. For example, you may be told to not use public transport for a period of time. Stay away from markets that have live or animals. Wash your hands after touching any animals. Don't touch animals that may be sick. Dont share eating or drinking tools with sick people. Dont kiss someone who is sick. Clean surfaces often with disinfectant. If you were in an area with COVID-19 in the last 14 days: Call your healthcare provider. He or she can talk with local health staff to see what action may be needed. Follow all instructions from your provider. Take your temperature every morning and evening for at least 14 days. This is to check for fever. Keep a record of the readings. Keep watch for symptoms of the virus. Tell your provider right away if you have symptoms. If you were in an area with COVID-19 and have a fever or other symptoms: Dont panic. Keep in mind that other illnesses can cause similar symptoms. Stay away from work, school, and public places. Limit physical contact with family members. Don't kiss anyone or share eating or drinking utensils. Clean surfaces you touch with disinfectant. This is to help prevent the virus from spreading. Call your healthcare provider. Explain that you have been exposed to COVID-19 and have symptoms. Do this before going to any hospital. Wait for instructions. Keep in mind that healthcare staff may wear protective equipment such as masks, gowns, gloves, and eye protection. You may be put in a separate room. This is to prevent the possible virus from spreading. Tell the healthcare staff about recent travel. This includes local travel on public transport. Staff may need to find other people you have been in contact with. Follow all instructions the healthcare staff give you. If you have been diagnosed with COVID-19 Follow all instructions from your healthcare provider. Dont leave your home, except to get medical care. Call your healthcare providers office before going. They can prepare and give you instructions. This will help prevent the virus from spreading. Dont go to work, school, or public areas. Dont use public transport or taxis. Stay away from other people in your home. Have them wear face masks around you. Dont share household items or food. Wear a face mask if you can. This includes at home or in a medical facility. Cover your face with a tissue when you cough or sneeze. Throw the tissue away. Wash your hands. Wash your hands often. Caregivers should: Follow all instructions from healthcare staff. Wear a face mask and protective clothing as advised. Wash hands often. Keep track of the sick persons symptoms. Clean surfaces, fabrics, and laundry thoroughly. Keep other people away from the sick person. When to call your healthcare provider Call your healthcare provider: If youve recently traveled and have symptoms If you have been diagnosed with COVID-19 and your symptoms are worse To learn more To find out more about COVID-19, visit the CDC website at www.cdc.gov/coronavirus/2019-ncov/index.html. [employer]. [address] [place] [address], [place] [address]. All rights reserved. This information is not intended as a substitute for professional medical care. Always follow your healthcare professional's instructions. This information has been adapted from [employer] Provider Instructions: Cardiology: Aspirin 81 mg daily due to history of nonobstructive coronary heart disease on remote cardiac catheterization Eliquis 5 mg twice daily Metoprolol succinate 100 mg twice daily Amiodarone 200 mg twice daily Furosemide 40 mg by mouth 1 time per day starting 05/20/2021. Continue to hold Entresto and spironolactone at discharge. Pending Studies at Discharge: No Stand-Alone Forms: [employer], Smoking Cessation Medications and DC Order Prescriptions: New amiodarone 200 mg Tablet 200 mg PO BIDM 30 Days Qty: 60 RF: 0 guaifenesin 200 mg tablet 200 mg PO TID PRN (Reason: congestion) Qty: 15 RF: 0 Continued multivitamin Tablet 1 tab PO QAM RF: 0 aspirin 81 mg Tablet,Delayed Release (Dr/Ec) 81 mg PO QAM RF: 0 omega [id number]-fish oil [Fish Oil] 1,200 (144-216) mg Capsule 1 cap PO HS RF: 0 coQ10 (ubiquinol) 100 mg Capsule 100 mg PO QAM RF: 0 metoprolol succinate 100 mg tablet extended release 24 hr 100 mg PO BID RF: 0 omeprazole 20 mg capsule,delayed release(DR/EC) 20 mg PO DAILY RF: 0 potassium chloride [Klor-Con M10] 10 mEq tablet,ER particles/crystals 10 meq PO DAILY RF: 0 Eliquis 5 mg tablet 5 mg PO BID RF: 0 metformin 500 mg tablet 500 mg PO AMPM RF: 0 Ozempic 0.25 mg or 0.5 mg(2 mg/1.5 mL) pen injector 0.5 mg SUBCUT WK RF: 0 latanoprost 0.005 % drops 1 drp OPB HS RF: 0 cholecalciferol (vitamin D3) [Vitamin D3] 50 mcg (2,000 unit) Tablet 50 mcg PO DAILY RF: 0 cyclobenzaprine 10 mg tablet 10 mg PO TID PRN (Reason: Muscle Spasm) RF: 0 Changed furosemide 40 mg tablet 40 mg PO DAILY Qty: 0 RF: 0 Discontinued Entresto 24-26 mg Tablet 1 tab PO BID RF: 0 spironolactone 25 mg Tablet 25 mg PO QAM RF: 0 Discharge Orders: Discharge Order (Routine); Ordered 05/19/21 Ordered By: Tania Trujillo/Other Patient Handouts: High Blood Sugar (Hyperglycemia), Hypoglycemia (Low Blood Sugar), Managing Type 2 Diabetes Admission Data Admit Date/Time: 05/15/21 02:51 Attending Provider: Tania Horn Admit Provider: Dewey Lopez Primary Care Provider: Leah Durán Other Providers: Ed Lua Other Interventions: Discharge Summary Assessment (RN) Last Done: 05/19/21 13:12
[2021-05-19] MEDS ORDERED: AMIODARONE 200 MG TAB PO SCH (17:00)
[2021-05-20] MEDS ORDERED: FUROSEMIDE 40 MG TAB PO SCH (09:00)
--- NOTE | 2021-05-28 13:16 | Coding Query ---
CODING QUERY To promote full compliance with coding requirements relating to patient care, provider participation is requested in all cases of real estate loan officer uncertainty. Please assist us with the question(s) below: Coding Question(s): The H&P documents under Assessment & Plan, "CRI, creatinine at baseline" and under History of Present Illness, "CRI (recent creatinine of 1.4)". Please specify below, in your clinical opinion, the meaning of CRI. (x ) Chronic Renal Insufficiency ( ) Chronic Respiratory Failure ( ) Catheter-related Infection ( ) Other: Please Specify Please don't send me another query asking me what CRI means when creatinine is mentioned by my documentation. It's a waste of my time. Thank you. [place] Physician's Response(s): Thank you Michelle Diaz Principal Diagnosis: "that condition established after study, to be chiefly responsible for occasioning the admission of the patient to the hospital for care." Co-Existing Principal Diagnosis: "when two or more diagnoses equally meet the criteria for principal diagnosis as determined by the circumstances of admission, diagnostic work up, and/or therapy provided, and the Alphabetic Index, Tabular List, or another coding guideline does not provide sequencing direction, any one of the diagnoses may be sequenced first." "When the physician has documented what appears to be a current diagnosis in the body of the record, but has not included the diagnosis in the final diagnostic statement, the physician should be asked whether the diagnosis should be added." (Source [facility] 2 QTR90. p3-4) CIERRA
== END 2021-05-19 15:10 | disposition home or self-care (01) | DRG 291 ==
LOC: ED 20:36 → EDINP 05-15 02:51 → 2S 05-15 17:55

== ENCOUNTER 2024-10-15 23:55 | Observation (INO) ==
--- OUTSIDE RECORDS SUMMARY | 2024-10-15 23:59 | External Medical Summary | Summary of Care ---
Author Name Unknown Organization [facility] Address [address] [facility] [facility] [place] [address] Phone [phone] Care Team Providers Care Web Content Coordinator Name Role Phone Jazmine Anguiano MD Primary Care Provider Encounter Details Date Type Department Care Team (Late st Contact Info) Description 10/14/2024 Orders Only PATIENT PORTAL DO NOT DELETE THIS DEPT USED BY [place] [id number] Allergies Active Allergy Reactions Criticality Noted Date Comments Statins 10/15/2022 Joint pain documented as of this encounter (statuses as of 10/14/2024) Medications Cholecalciferol (VITAMIN D3) 2000 units Tablet Take 1 Tablet by mouth in the morning. Active Multiple Vitamins-Minerals (MULTIVITAMIN ADULT) TABS Take by mouth. Act enedina Coenzyme Q10 (CO Q 10) 100 MG CAPS Take by mouth. Active Latanoprost 0.005 % Ophthalmic Solution (Xalatan) Instill 1 Drop into both eyes at bedtime. 11/05/19 21 Active OneTouch Verio w/Device KitIndications:Typ e 2 diabetes mellitus with hemoglobin A1c goal of less than 7.0% ([facility]) Use up to 4 times a day E11.9 1 Kit 01/30/20 21 Active Aspirin 81 MG Oral Tablet Delayed Release Take 1 Tablet by mouth in the morning. Active Camden-3 Fish Oil 1200 MG Oral Capsule Take 1 Cap by mouth daily. Active Brimonidine Tartrate-Timolol 0.2-0.5 % Ophthalmic Solution (Combigan) Instill 1 Drop into both eyes in the morning and 1 Drop before bedtime. Active OneTouch Verio In Vitro Strip (Glucose Blood)Indications: Type 2 diabetes mellitus with hemoglobin A1c goal of less than 7.0% (HCC) Use up to 4 times a day E11.9 400 Strip 3 07/04/20 22 Active OneTouch Delica Lancets 33G Use as directed 4 times a day as needed for Hyperglycemia (high sugar) or Hypoglycemia (low sugar). 400 Each 3 07/10/20 22 Active Meclizine HCl 25 MG Oral Tablet Chewable Take 1 Tablet by mouth 3 times a day as needed for Dizziness. 30 Tablet 1 12/25/19 23 Active Metoprolol Succinate ER 100 MG Oral Tablet Extended Release 24 Hour (toPROL XL)Indications:Atr ial fibrillation, unspecified type (HCC),Essential hypertension with goal blood pressure less than 130/80 TAKE 1 TABLET BY MOUTH TWICE A DAY 180 Tablet 3 10/11/19 24 Active Spironolactone 25 MG Oral Tablet (Aldactone)Indicat ions:Nonischemic cardiomyopathy (HCC) Take 0.5 Tablets by mouth in the morning. 45 Tablet 3 11/10/19 24 Active Entresto 24-26 MG Oral Tablet (sacubitril-valsar allen 24-26 mg per tab)Indications:No nischemic cardiomyopathy (HCC) TAKE 1 TABLET BY MOUTH TWICE A DAY 180 Tablet 3 12/21/19 24 Active Repatha SureClick 140 MG/ML Subcutaneous Solution Auto-injector (evolocumab) Inject 140 mg under the skin every 14 days. Remove from refrigerator 30 minutes prior to injection. 6 mL 3 5 1:19 PM EST 02/01/20 24 Active CPAP every night at bedtime. Active Juvyyrg-Ebegvi-Lqt ll Pertussis 5-2.5-18.5 LF-MCG/0.5 Suspension Prefilled Syringe (Boostrix) Inject into a large muscle. 0.5 mL 02/14/20 24 Active metFORMIN HCl 500 MG Oral Tablet (Glucophage)Indica tions:Type 2 diabetes mellitus with hemoglobin A1c goal of less than 7.0% ([facility]) TAKE 1 TABLET BY MOUTH TWICE A DAY WITH BREAKFAST AND DINNER 180 Tablet 2 02/21/20 24 Active Omeprazole 20 MG Oral Capsule Delayed Release (PriLOSEC)Indicati ons:Nonischemic cardiomyopathy (HCC) TAKE 1 CAPSULE BY MOUTH EVERY DAY 90 Capsule 3 02/21/20 24 Active Ozempic (2 MG/DOSE) 8 MG/3ML Subcutaneous Solution Pen-injector (Semaglutide (2 MG/DOSE))Indicatio ns:Type 2 diabetes mellitus with hemoglobin A1c goal of less than 7.0% (HCC) Inject 2 mg under the skin once a week. 9 mL 1 06/26/20 24 Active Furosemide 20 MG Oral Tablet (Lasix)Indications :Essential hypertension with goal blood pressure less than 130/80 TAKE 1 TABLET BY MOUTH EVERY DAY IN THE MORNING 90 Tablet 07/19/20 24 Active Amiodarone HCl 200 MG Oral Tablet (Cordarone)Indicat ions:Coronary artery disease involving [place] coronary artery of [place] heart without angina pectoris,Essential hypertension with goal blood pressure less than 130/80 TAKE 1 TABLET BY MOUTH EVERY DAY IN THE MORNING 90 Tablet 3 08/01/20 24 Active Xarelto 20 MG Oral Tablet (Rivaroxaban)Indic ations:Atrial fibrillation, unspecified type (HCC) TAKE 1 TABLET BY MOUTH EVERY DAY WITH DINNER 90 Tablet 10/12/19 25 Active Benzonatate 100 MG Oral Capsule (Tessalon Perles)Indications :URTI (acute upper respiratory infection),Acute cough Take 1 Capsule by mouth 3 times a day as needed for Cough. Do not cut, crush, or chew. 50 Capsule 1 10/12/19 25 Active Fluticasone Propionate HFA 110 MCG/ACT Inhalation AerosolIndications :URTI (acute upper respiratory infection),Acute cough Inhale 2 Puffs by mouth in the morning and 2 Puffs before bedtime. 12 g 1 10/12/19 25 Active documented as of this encounter (statuses as of 10/14/2024) Active Problems Problem Noted Date Diagnosed Date Body mass index (BMI) of 40.0 to 44.9 in adult 0 01/03/2024 Overview: Per Obesity protocol Primary open angle glaucoma (POAG) of both eyes, mild stage 12/06/2023 Paroxysmal atrial fibrillation 11/10/2023 ICD (implantable cardioverte r-defibrillator), single, in situ 11/10/2023 Dyslipidemia, goal LDL below 70 05/10/2023 Type 2 diabetes mellitus wit h hemoglobin A1c goal of less than 7.0% 01/29/2021 JOSE DE JESUS (obstructive sleep apnea) 01/20/2019 Hypersomnolence disorder 01/10/2019 Essential hypertension with goal blood pressure less than 130/80 12/02/2018 Nonischemic cardiomyopathy 10/03/2018 Coronary artery disease invo lving [place] coronary artery of [place] heart without angina pectoris 10/03/2018 documented as of this encounter (statuses as of 10/14/2024) Resolved Problems Problem Noted Date Diagnosed Date Resolved Date Obesity, morbid (more than 1 00 lbs over ideal weight or BMI > 40) 05/27/2021 12/06/2023 Body mass index (BMI) of 40. 0 to 44.9 in adult 10/30/2019 06/05/2021 Overview: Per Obesity protocol documented as of this encounter (statuses as of 10/14/2024) Immunizations Name Administration Dates Next Due COVID-19 mRNA, LNP-s, No Pre serve, 2-Dose Series (YourPOV.TV) 11/09/2020,10/19/2020 COVID-19, MRNA-LNP, PF, 50 M CG/0.5 mL, 12 YRS AND ABOVE, IM (MODERNA-Spikevax) 05/29/2023 COVID-19, mRNA, LNP-s, PF, B ooster, 100mcg/0.5mg (Moderna) 05/04/2022 HEP A - Hepatitis A (Adult > 18 yrs) 07/19/2018 Pneumococcal Conjugate Vacc, 13 Valent (Prevnar) 07/19/2018 Pneumococcal Polysaccharide PPV23 (Pneumovax) RSV Vac., Recomb, Adjuvant, PF,0.5 Ml (Arexvy) 0 02/11/2024 Season Influenza, Quad, PF, Adjuvanted, 65+ Yrs, IM (FLUAD) 04/30/2023 Seasonal Influenza, Quadrivalent Hd, 65+ Yrs 07/2022,04/11/2021 Seasonal Influenza, Quadrivalent, No Preserve, I M 04/12/2020,04/23/2019 TDAP (age 10 and older)(Boostrix) 09/14/2023 TDAP, Age 7 and older, IM (Adacel) 07/04/2018 Zoster Vaccine Recombinant (Shingrix) 03/10/2018 ,11/30/2017 documented as of this encounter Social History Tobacco Use Types Packs/Day Years Used Date Smoking Tobacco: Former Cigarettes Q uit: 1995 Smokeless Tobacco: Never Alcohol Use Standard Drinks/Week Comments Yes 0 (1 standard drink = 0.6 oz pur e alcohol) 2-3 drinks a week PHQ-2 Answer Date Recorded PHQ Adult Total Score 0 08/26/2022 Hunger Vital Sign Answer Date Recorded Within the past 12 months, y ou worried that your food would run out before you got the money to buy more. Never true 11/08/19 24 Within the past 12 months, t he food you bought just didn't last and you didn't have money to get more. Never true 11/08/2023 Childcare Answer Date Recorded Do you feel overwhelmed with taking care of a child, family member or friend? No 11/08/2023 Does your family need help f inding childcare? (Household - for ages 0-17 years) Not on file 11/08/2023 Clothing Answer Date Recorded Have you been unable to get clothing when it was really needed? No 11/08/2023 Is your family able to get c lothes or diapers when needed? (Household - for ages 0-17 years) Not on file 11/08/2023 Personal Safety Answer Date Recorded Do you feel unsafe or have concerns for your saf ety? No 11/08/2023 Do you have concerns for you r family's safety? (Household - for ages 0-17 years) Not on file 11/08/2023 Utilities Answer Date Recorded Do you have trouble paying y our heating, water, or electric bill? No 11/08/2023 Is your family able to pay t he heat, water, or electric bill? (Household - for ages 0-17 years) Not on file 11/08/2023 Does your family have access to good internet? (Household - for ages 0-17 years) Not on file 11/08/2023 Employment Status Answer Date Recorded Are you unemployed or without regular income? No 11/08/2023 Does the household have a re gular source of income? (Household - for ages 0-17 years) Not on file 11/08/2023 Social Connections Answer Date Recorded How often do you feel lonely or isolated from th ose around you? Never 11/08/2023 Financial Resource Strain Answer Date R ecorded Do you have any trouble payi ng for your medications, or do you think you might in the future? No 11/08/2023 Does your family have troubl e paying for medicine? (Household - for ages 0-17 years) Not on file 11/08/2023 Transportation Needs Answer Date Record ed READ ONLY Do you have troubl e getting a ride to medical visits or work? Never True 11/08/2023 Does your family have a hard time getting a ride to doctors visits? (Household - for ages 0-17 years) Not on file 11/08/2023 Has lack of transportation k ept you from medical appointments, meetings, work, or from getting things needed for daily living? Check all that apply. (Adult - for ages 18 years and over) Not on file 11/08/2023 Do you (or your family) have trouble finding or paying for a ride (transportation)? (Household - for ages 0-17 years) Not on file 11/08/2023 Housing Stability Answer Date Recorded Do you currently live in a s helter or have no steady place to sleep at night? No 11/08/2023 READ ONLY Do you think you a re at risk of becoming homeless? No 11/08/2023 Does your family worry about paying for your home or becoming homeless? (Household - for ages 0-17 years) Not on file 0 11/08/2023 Are you homeless or worried that you might be in the future? (Adult - for ages 18 years and over) Not on file Are you (or your family) kb eless or worried that you might be in the future? (Household - for ages 0-17 years) Not on file Food Insecurity Answer Date Recorded Do you need food for this week? No 11/08/2023 Are you able to get enough f ood for your family? (Household - for ages 0-17 years) Not on file 11/08/2023 Does your family need food t his week? (Household - for ages 0-17 years) Not on file 11/08/2023 Do you always have enough fo od for your family? (Household - for ages 0-17 years) Not on file 11/08/2023 Food Insecurity Answer Date Recorded Within the past 12 months, y ou worried that your food would run out before you got the money to buy more. Never true 11/08/19 24 Within the past 12 months, t he food you bought just didn't last and you didn't have money to get more. Never true 11/08/2023 Do you need food for this week? No 11/08/2023 Sex and Gender Information Value Date Recorded Sex Assigned at Male 09/22/2019 10:05 AM EST Legal Sex Male 4:28 PM EST Gender Identity Male 09/22/2019 10:05 AM EST Sexual Orientation Straight 09/22/2019 10 :05 AM EST documented as of this encounter Plan of Treatment Upcoming Encounters Date Type Department Care Team (Late st Contact Info) Description 05/01/2025 3:00 PM EDT Office Visit Cardiology, [facility] [address] [place] [id number] Justina Brower PA-C [address] [place] [id number] Health Maintenance Due Date Last Done Comments Hepatitis C Screening 01/07[birth year]1974 Cologuard 01/07/2001 Fecal Occult Blood Test 01/07/2001 Sigmoidoscopy 01/07/2001 Depression Screening 08/26/2023 08/26/2022 COVID-19 Vaccine ( season) 2024 04/29/2024, 05/29/2023, 05/04/2022, Additional history exists HbA1c 07/09/2024 01/07/2024, 09/23, 12/15/2022, Additional history exists Albumin/Creatinine Ratio 10/11/2024 024, 01/09/2022, 10/17/2019 GFR 10/11/2024 10/11/2023, 01/21, 08/26/2022, Additional history exists Pneumococcal Vaccine: 50+ Years (3 of 3 - PCV20 or PCV21) 10/17/2024 10/17/2019, 07/19/2018 Diabetic Foot Exam 12/05/2024 12/06/2023, 07/11/2021 Diabetic Eye Exam 04/11/2025 09/08/2022, 09/16/2021 Postponed from 09/08/2023 (Acute Illness) Colonoscopy 01/22/2033 01/22/2023, 10/25/2017 Colorectal Cancer Screening 01/22/2033 DTap/Tdap Vaccines (3 - Td or Tdap) 09/14/2033 09/14/2023, 07/04/2018 Zoster Vaccines Discontinued 03/10/2018, 11/30/2017 AAA Screening Completed 01/15/2021 Influenza Vaccine (FLU shot) Completed 04/29/2024, 04/30/2023, 05/04/2022, Additional history exists HPV (Gardasil) Vaccine Aged Out No lo nger eligible based on patient's age to complete this topic Hepatitis B Vaccine Aged Out No longe r eligible based on patient's age to complete this topic MENINGOCOCCAL (MENACTRA/MENVEO) Aged Out No longer eligible based on patient's age to complete this topic Meningitis B Vaccine (Bexsero/Trumemba) Aged Out No longer eligible based on patient's age to complete this topic documented as of this encounter Medical Devices Not on filedocumented as of this encounter Care Teams Web Content Coordinator Relationship Specialty Start Date End Date Jazmine Anguiano MD [address] [facility] [place] [id number] PCP - General Internal Medicine 12/06/23 documented as of this encounter
--- OUTSIDE RECORDS SUMMARY | 2024-10-15 23:59 | External Medical Summary | Summary of Care ---
Author Name Unknown Organization [facility] Address [address] [facility] [place] [address] Phone [phone] Care Team Providers Care Check Weigher Name Role Phone Jazmine Anguiano MD Primary Care Provider Reason for Visit * Reason Comments Cough Encounter Details Date Type Department Care Team (Latest Contact Info) Description 10/12/2024 3:00 PM EST Office Visit General Internal Medicine Daren Alford [place] [address] [facility] [place] [facility] [place] [address] Jerilyn Carter MD [address] [facility] [place] [address] URTI (acute upper respiratory infection)*; Type 2 diabetes mellitus with hemoglobin A1c goal of less than 7.0% ([facility]); Paroxysmal atrial fibrillation (HCC); Nonischemic cardiomyopathy (HCC); Body mass index (BMI) of 40.0 to 44.9 in adult (HCC); Acute cough Allergies Active Allergy Reactions Criticality Noted Date Comments Statins 10/15/2022 Joint pain documented as of this encounter (statuses as of 10/12/2024) Medications Cholecalciferol (VITAMIN D3) 2000 units Tablet Take 1 Tablet by mouth in the morning. Active Multiple Vitamins-Minerals (MULTIVITAMIN ADULT) TABS Take by mouth. Act enedina Coenzyme Q10 (CO Q 10) 100 MG CAPS Take by mouth. Active Latanoprost 0.005 % Ophthalmic Solution (Xalatan) Instill 1 Drop into both eyes at bedtime. 021 Active OneTouch Verio w/Device KitIndications:Type 2 diabetes mellitus with hemoglobin A1c goal of less than 7.0% ([facility]) Use up to 4 times a day E11.9 1 Kit 021 Active Aspirin 81 MG Oral Tablet Delayed Release Take 1 Tablet by mouth in the morning. Active [place]-3 Fish Oil 1200 MG Oral Capsule Take 1 Cap by mouth daily. Active Brimonidine Tartrate-Timolol 0.2-0.5 % Ophthalmic Solution (Combigan) Instill 1 Drop into both eyes in the morning and 1 Drop before bedtime. Active OneTouch Verio In Vitro Strip (Glucose Blood)Indications:T ype 2 diabetes mellitus with hemoglobin A1c goal of less than 7.0% ([facility]) Use up to 4 times a day E11.9 400 Strip 3 022 Active OneTouch Delica Lancets 33G Use as directed 4 times a day as needed for Hyperglycemia (high sugar) or Hypoglycemia (low sugar). 400 Each 3 022 Active Meclizine HCl 25 MG Oral Tablet Chewable Take 1 Tablet by mouth 3 times a day as needed for Dizziness. 30 Tablet 1 023 Active Metoprolol Succinate ER 100 MG Oral Tablet Extended Release 24 Hour (toPROL XL)Indications:Atri al fibrillation, unspecified type (HCC),Essential hypertension with goal blood pressure less than 130/80 TAKE 1 TABLET BY MOUTH TWICE A DAY 180 Tablet 3 024 Active Spironolactone 25 MG Oral Tablet (Aldactone)Indicati ons:Nonischemic cardiomyopathy (HCC) Take 0.5 Tablets by mouth in the morning. 45 Tablet 3 024 Active Entresto 24-26 MG Oral Tablet (sacubitril-valsart an 24-26 mg per tab)Indications:Non ischemic cardiomyopathy (HCC) TAKE 1 TABLET BY MOUTH TWICE A DAY 180 Tablet 3 024 Active Repatha SureClick 140 MG/ML Subcutaneous Solution Auto-injector (evolocumab) Inject 140 mg under the skin every 14 days. Remove from refrigerator 30 minutes prior to injection. 6 mL 3 09/25/19 25 1:19 PM EST 024 Active CPAP every night at bedtime. Active Uoxixkq-Jvxjqu-Npte l Pertussis 5-2.5-18.5 LF-MCG/0.5 Suspension Prefilled Syringe (Boostrix) Inject into a large muscle. 0.5 mL 024 Active metFORMIN HCl 500 MG Oral Tablet (Glucophage)Indicat ions:Type 2 diabetes mellitus with hemoglobin A1c goal of less than 7.0% (HCC) TAKE 1 TABLET BY MOUTH TWICE A DAY WITH BREAKFAST AND DINNER 180 Tablet 2 024 Active Omeprazole 20 MG Oral Capsule Delayed Release (PriLOSEC)Indicatio ns:Nonischemic cardiomyopathy (HCC) TAKE 1 CAPSULE BY MOUTH EVERY DAY 90 Capsule 3 024 Active Ozempic (2 MG/DOSE) 8 MG/3ML Subcutaneous Solution Pen-injector (Semaglutide (2 MG/DOSE))Indication s:Type 2 diabetes mellitus with hemoglobin A1c goal of less than 7.0% (HCC) Inject 2 mg under the skin once a week. 9 mL 1 024 Active Furosemide 20 MG Oral Tablet (Lasix)Indications: Essential hypertension with goal blood pressure less than 130/80 TAKE 1 TABLET BY MOUTH EVERY DAY IN THE MORNING 90 Tablet 024 Active Amiodarone HCl 200 MG Oral Tablet (Cordarone)Indicati ons:Coronary artery disease involving [place] coronary artery of [place] heart without angina pectoris,Essential hypertension with goal blood pressure less than 130/80 TAKE 1 TABLET BY MOUTH EVERY DAY IN THE MORNING 90 Tablet 3 024 Active Benzonatate 100 MG Oral Capsule (Tessalon Perles)Indications: URTI (acute upper respiratory infection),Acute cough Take 1 Capsule by mouth 3 times a day as needed for Cough. Do not cut, crush, or chew. 50 Capsule 1 025 Active Fluticasone Propionate HFA 110 MCG/ACT Inhalation AerosolIndications: URTI (acute upper respiratory infection),Acute cough Inhale 2 Puffs by mouth in the morning and 2 Puffs before bedtime. 12 g 1 025 Active Ondansetron HCl 4 MG Oral Tablet Take 1 Tablet by mouth every 6 hours as needed for Nausea. 30 Tablet 023 10/12 Discontinued( Medication List Clean Up) Trulicity 4.5 MG/0.5ML Subcutaneous Solution Pen-injector (Dulaglutide)Indica tions:Type 2 diabetes mellitus with hemoglobin A1c goal of less than 7.0% (HCC) INJECT 4.5 MG (0.5 MLS) UNDER THE SKIN ONCE A WEEK. 6 mL 3 024 10/12 Discontinued( Medication/Do se Changed) Xarelto 20 MG Oral Tablet (Rivaroxaban)Indica tions:Atrial fibrillation, unspecified type (HCC) TAKE 1 TABLET BY MOUTH EVERY DAY WITH DINNER 90 Tablet 10/12 Discontinued Cefuroxime Axetil 500 MG Oral Tablet (Ceftin)Indications :Acute laryngotracheitis Take 1 Tablet by mouth in the morning and 1 Tablet before bedtime. 20 Tablet 10/12 Discontinued( Medication List Clean Up) Benzonatate 200 MG Oral CapsuleIndications: Acute laryngotracheitis Take 1 Capsule by mouth 3 times a day as needed for Cough. 30 Capsule 1 024 10/12 Discontinued( Medication List Clean Up) documented as of this encounter (statuses as of 10/12/2024) Active Problems Problem Noted Date Diagnosed Date [...] cardiomyopathy 10/03/2018 Coronary artery disease invo lving [place] coronary artery of [place] heart without angina pectoris 10/03/2018 documented as of this encounter (statuses as of 10/12/2024) Resolved Problems Problem Noted Date Diagnosed Date Resolved Date Obesity, morbid (more than 1 00 lbs over ideal weight or BMI > 40) 05/27/2021 12/06/2023 Body mass index (BMI) of 40. 0 to 44.9 in adult 10/30/2019 06/05/2021 Overview: Per Obesity protocol documented as of this encounter (statuses as of 10/12/2024) Immunizations Name Administration Dates Next Due COVID-19 mRNA, LNP-s, No Pre serve, 2-Dose Series (Zuora) 11/09/2020,10/19/2020 COVID-19, MRNA-LNP, PF, 50 M CG/0.5 [...] AM EST documented as of this encounter Last Filed Vital Signs Vital Sign Reading Time Taken Comments Blood Pressure 120/76 10/12/2024 3:01 PM EST Pulse 84 10/12/2024 3:01 PM EST Temperature 36.8 C (98.3 F) 10/12/2024 3:01 PM ES T Respiratory Rate 20 10/12/2024 3:0 1 PM EST Oxygen Saturation 96% 10/12/2024 3:01 PM EST Inhaled Oxygen Concentration - - Weight 125.5 kg (276 lb 9.6 oz) 10/12/2024 3:01 PM EST Height 171.5 cm (5' 7.52") 10/12/2024 3:01 PM ES T Body Mass Index 42.66 10/12/2024 3:01 PM EST documented in this encounter Progress Notes * Jerilyn Carter MD - 10/12/2024 3:08 PM EST Images from the original note were not included. History of Present Illness Sharad James is a 69 year old male that presents for Cough Pt is here for the sinus pressure, postnasal drip, cough with phlegm, feeling of stuffiness and facial pressure for last few days. Patient denies any chestpain or sob. Feels wheezing+ Pt did try OTC meds without much relief. Physical Exam Vitals: 10/12/24 1501 Temp: 98.3 F (36.8 C) Pulse: 84 Resp: 20 SpO2: 96% BP: 120/76 BMI: 42.66 BP Readings from Last 3 Encounters: 10/12/24 120/76 06/27/24 118/78 02/09/24 120/84 Wt Readings from Last 3 Encounters: 10/12/24 276 lb 9.6 oz (125.5 kg) 06/27/24 283 lb 9.6 oz (128.6 kg) 02/09/24 283 lb 12 oz (128.7 kg) BMI Readings from Last 3 Encounters: 10/12/24 42.66 kg/m 06/27/24 43.74 kg/m 02/09/24 43.79 kg/m Ht Readings from Last 3 Encounters: 10/12/24 5' 7.52" (1.715 m) 06/27/24 5' 7.52" (1.715 m) 02/09/24 5' 7.5" (1.715 m) HEENT: PERRLA, EOMI, anicteric sclera, b/l tympanic membrane is pearly white, no erythema, no pharyngeal erythema, no lymphadenopathy, neck supple CVS: RRR, no murmurs, rubs or gallops, s1 s 2normal. RESP: clear to auscultation, + wheezing, no crackles I have reviewed the following results: None Assessment and Plan URTI (acute upper respiratory infection) (Primary) Likely is recovering from Flu which his also had. No need for swab. - Benzonatate 100 MG Oral Capsule (Tessalon Perles); Take 1 Capsule by mouth 3 times a day as needed for Cough. Do not cut, crush, or chew. - Fluticasone Propionate HFA 110 MCG/ACT Inhalation Aerosol; Inhale 2 Puffs by mouth in the morningand 2 Puffs before bedtime. Advised hydration, tylenol as needed. Advised Mucinex plain twice daily. Type 2 diabetes mellitus with hemoglobin A1c goal of less than 7.0% ([facility]) - ALBUMIN / CREATININE RATIO, URINE; Future; Expected date: 10/12/2024 - HEMOGLOBIN A1C; Future; Expected date: 10/12/2024 Paroxysmal atrial fibrillation (HCC) Rate controlled. Nonischemic cardiomyopathy (HCC) Stable. Body mass index (BMI) of 40.0 to 44.9 in adult (HCC) Acute cough - Benzonatate 100 MG Oral Capsule (Tessalon Perles); Take 1 Capsule by mouth 3 times a day as needed for Cough. Do not cut, crush, or chew. - Fluticasone Propionate HFA 110 MCG/ACT Inhalation Aerosol; Inhale 2 Puffs by mouth in the morningand 2 Puffs before bedtime. Wrap-Up Time: I spent a total of 30-39 minutes (exact time 30 mins) on the date of service in preparation, delivery, and documentation of the care provided to Sharad James excluding any time spent in the performance of separately billed services. documented in this encounter Nursing Notes * Odilia Qureshi CMA - 10/12/2024 2:57 PM EST Patient presents today with complains of runny nose, sinus congestion, PND and cough. He states that cough is much worse at night due to increased congestion, causing trouble sleeping. He denies any fever or chills. Nasal drainage is clear/light colored, no green or yellow. documented in this encounter Plan of Treatment Upcoming Encounters Date Type Department Care Team (Late st Contact Info) Description 05/01/2025 3:00 PM EDT Office Visit Cardiology, [facility] [address] [place] [id number] Justina Brower, SINDI [address] [place] [address] Scheduled Orders Name Type Priority Associated Diagnoses Orde r Schedule ALBUMIN / CREATININE RATIO, URINE Lab Routine Type 2 diabetes mellitus with hemoglobin A1c goal of less than 7.0% (HCC) Expected: 10/12/2024, Expires: 10/12/2025 HEMOGLOBIN A1C Lab Routine Type 2 diabetes mellitus with hemoglobin A1c goal of less than 7.0% (HCC) Expected: 10/12/2024 (Approximate), Expires: 11/09/2025 Health Maintenance Due Date Last Done Comments [...] Not on filedocumented as of this encounter Visit Diagnoses Diagnosis URTI (acute upper respiratory infection)- Primary Acute upper respiratory infections of unspecified site Type 2 diabetes mellitus with hemoglobin A1c goal of less than 7.0% (HCC) Paroxysmal atrial fibrillation (HCC) Atrial fibrillation Nonischemic cardiomyopathy (HCC) Other primary cardiomyopathies Body mass index (BMI) of 40.0 to 44.9 in adult (HCC) Acute cough documented in this encounter Care Teams Check Weigher Relationship Specialty Start Date End Date Jazmine Anguiano MD [address] [place] [address] PCP - General Internal Medicine 12/06/23 documented as of this encounter
--- OUTSIDE RECORDS SUMMARY | 2024-10-15 23:59 | External Medical Summary | Continuity of Care Document ---
Author Name Unknown Organization [facility] [address] [facility] [address] [phone] Care Team Providers Care Data Entry Representative Name Role Phone Leah Durán Primary Care Physician [phone] [id number] Date(s): 09/21/24 - 09/21/[address] [facility] [address] [facility] [address] [phone] Encounter Diagnosis Nail hemorrhage(Discharge Diagnosis) - 09/21/24 Seborrheic keratoses(Discharge Diagnosis) - 09/21/24 Onychomycosis(Discharge Diagnosis) - 09/21/24 Discharge Disposition: Home or Self Care Attending Physician: MD Pancho, Brandy Manjarrez Allergies, Adverse Reactions, Alerts Substance Criticality Severity Reaction Reaction Severity Status statins joint pain Active Assessment and Plan Extracted from: Title:Dermatology Office Visit Note Author:Tawnya cardona MD, Brandy Manjarrez Date:09/21/24 1. History of actinic luna tosis. Insert Warning signs of skin cancer were reviewed. Sun protection reviewed. Follow-up in 12-24months, sooner for any changing or growing lesions or acute concerns. I also recommended monthly self skin exams 2. Lentigo's and seborrheic keratoses. Within normal limits today 3. Nail hemorrhage. Acute due to dropping a box on it. The purple should grow out over time 4. Onychomycosis right great and second nail. Acute offered treatment options but patient declined currently Immunizations Given and Recorded Vaccine Date Status Refusal Reason pneumococcal 13-valent vaccine 07/19/18 Given hepatitis A adult vaccine 07/19/18 Given tetanus/diphtheria/pertuss, acel (Tdap) 07/04/18 G iven zoster vaccine, inactivated 03/10/18 Recorded zoster vaccine, inactivated 03/10/18 Recorded zoster vaccine, inactivated 11/30/17 Recorded zoster vaccine, inactivated 11/30/17 Recorded influenza virus vaccine, inactivated 08/23/17 Flaquito rded influenza virus vaccine, inactivated 05/10/17 Give n Medications amiodarone 200 mg oral tablet Start: 12/01/21 9:19:00 AM EDT, 1 tab, PO, Daily Start Date: 12/01/21 Status: Ordered Co Q-10 100 mg oral capsule Start: 05/20/18 3:33:00 PM EDT, See Instructions, quinol 100mg po daily Start Date: 05/20/18 Status: Ordered Entresto 24 mg-26 mg oral tablet Start: 12/13/18 6:51:00 PM EDT, 1 tab, PO, bid Start Date: 12/13/18 Status: Ordered Fish Oil 500 mg oral capsule Start: 05/10/17 8:13:00 AM EDT, 4 cap, PO, bid Start Date: 05/10/17 Status: Ordered latanoprost 0.005% ophthalmic solution Start: 01/20/22 4:04:00 PM EDT, 2 mL, INSTILL 1 DROP INTO BOTH EYES AT BEDTIME Start Date: 01/20/22 Status: Ordered metFORMIN 500 mg oral tablet Start: 12/01/21 9:18:00 AM EDT, 1 tab, PO, bid Start Date: 12/01/21 Status: Ordered Metoprolol Succinate ER 100 mg oral tablet, extended release Start: 12/01/21 9:18:00 AM EDT, 1 tab, PO, bid Start Date: 12/01/21 Status: Ordered multivitamin Start: 05/10/17 8:13:00 AM EDT, 1 tab, PO, Daily Start Date: 05/10/17 Status: Ordered Repatha SureClick 140 mg/mL subcutaneous solution Start: 02/08/24 10:00:00 AM EDT Start Date: 02/08/24 Status: Ordered spironolactone 25 mg oral tablet Start: 10/05/19 9:47:28 AM EST, See Instructions, Disp# 90, Refills: 3, TAKE 1 TABLET DAILY. ESTABLISH WITH ANOTHER CIRCLE CUTTING SAW OPERATOR FOR ADDITIONALREFILLS, Pharmacy: [facility] Start Date: 10/05/19 Status: Ordered Vitamin D3 2000 intl units oral tablet Start: 05/10/17 8:13:00 AM EDT, 1 tab, PO, Daily Start Date: 05/10/17 Status: Ordered Xarelto 20 mg oral tablet Start: 12/01/21 9:18:00 AM EDT, 1 tab, PO, qPM Start Date: 12/01/21 Status: Ordered Mental Status 09/21/24 Barriers to Learning one year None evide nt Mandatory Health Literacy Documentation Yes Health Literacy Communication Barriers N ever Primary Language [place] Problem List Condition Confirmation Course Effective Dates Status H ealth Status Informant Elevated glucose Confirmed Active Acute upper respiratory infection Confirmed Active Changing skin lesion Confirmed Active Nail hemorrhage Confirmed Active Gout Confirmed Active Hallux valgus of left foot Confirmed Active Angioma Confirmed Active History of actinic keratoses Confirmed Active Hyperlipidemia Confirmed Active Hypertension Confirmed Active Morbid obesity Confirmed Active Onychomycosis Confirmed Active Ortiz angioma Confirmed Active Seborrheic keratoses Confirmed Active Hallux rigidus, left foot Confirmed Active Diagnosis Diagnosis Type Effective Dates Health Status Clinical Service Informant Nail hemorrhage Discharge Diagnosis 09/21/24 Seborrheic keratoses Discharge Diagnosis 09/21/24 Onychomycosis Discharge Diagnosis 09/21/24 Procedures Procedure Date Related Diagnosis Body Site Status Shave biopsy of skin lesion 12/01/21 Completed Defibrillator 2018 Completed Colonoscopy 1 10/25/17 Completed Colonoscopy 2 2011 Completed Bilateral replacement of hip joints Completed Hip 3 Completed 1Non-bleeding internal hemorrhoids. Diverticulosis in the sigmoid colon, in the transverse colon and in the ascending colon. No specimens collected. 'Repeat in 5 years. 2told to repeat in 5 years 3right hip replacement 2014 Let rplaced 2013 Social History Social History Type Response Smoking Status Former Smoker, quit > 1 yr Sex Male Sex Representation Male (finding) Dermatology Outpatient Note * MD Pancho, Brandy Manjarrez: PERFORM Event Display: Dermatology Outpt Note Authored Date: [id number] Chief Complaint skin check History of Present Illness Patient follows up for history of actinic keratosis. Used to gets lots of sun when living in [place] but now very careful with his sun protection and does not get a lot of sun. No acute concerns. [1] Physical Exam Gen: Well appearing patient, no acute distress. Alert and oriented x3. Good mood. Skin examination completed of face, eyelids, scalp, hair, lips, ears, neck, chest, back, abdomen,upper and lower extremities bilaterally including hands, feet, fingers and toes, fingernails and toenails, pt declined buttocks and groin. Patient has an occasional lentigo. No signs of actinic keratosis. An occasional seborrheic keratosis. Onychomycosis on the right great nail. Some hemorrhage on the left second fingernaildue to dropping a box on it. Assessment/Plan 1. History of actinic keratosis. Insert Warning signs of skin cancer were reviewed. Sun protection reviewed. Follow-up in 12-24months, sooner for any changing or growing lesions or acute concerns. I also recommended monthly self skin exams 2. Lentigo's and seborrheic keratoses. Within normal limits today 3. Nail hemorrhage. Acute due to dropping a box on it. The purple should grow out over time 4. Onychomycosis right great and second nail. Acute offered treatment options but patient declined currently Problem List/Past Medical History Ongoing Acute upper respiratory infection Angioma Changing skin lesion Ortiz angioma Elevated glucose Gout Hallux rigidus, left foot Hallux valgus of left foot History of actinic keratoses Hyperlipidemia Hypertension Morbid obesity Seborrheic keratoses Resolved Actinic keratosis Cardiomyopathy Pericarditis Procedure/Surgical History Shave biopsy of skin lesion| Service Date: 2Defibrillator| Service Date: 2018Colonoscopy| Service Date: 10/25/2017Colonoscopy| Service Date: 2011HipBilateral replacement ofhip joints Medications amiodarone(amiodarone 200 mg oral tablet), 200 mg= 1 tab, PO, Daily cholecalciferol(Vitamin D3 2000 intl units oral tablet), 2000 Int_Unit= 1 tab, PO, Daily evolocumab(Repatha SureClick 140 mg/mL subcutaneous solution) latanoprost ophthalmic(latanoprost 0.005% ophthalmic solution) metFORMIN(metFORMIN 500 mg oral tablet), 500 mg= 1 tab, PO, bid metoprolol(Metoprolol Succinate ER 100 mg oral tablet, extended release), 100 mg= 1 tab, PO, bid multivitamin, 1 tab, PO, Daily omega-3 polyunsaturated fatty acids(Fish Oil 500 mg oral capsule), 2000 mg= 4 cap, PO, bid rivaroxaban(Xarelto 20 mg oral tablet), 20 mg= 1 tab, PO, qPM sacubitril-valsartan(Entresto 24 mg-26 mg oral tablet), 1 tab, PO, bid spironolactone(spironolactone 25 mg oral tablet), See Instructions, 3 refills ubiquinone(Co Q-10 100 mg oral capsule), See Instructions Allergies statinsjoint pain Social History Smoking Status Former Smoker, quit > 1 yr Alcohol - No Risk Exercise - Occasional exercise Tobacco - Denies Tobacco Use Family History Asthma: Father. Stroke: Mother. Health Status Family Member(s) [1]Office Visit Note; MD Pancho, Brandy Manjarrez 12/02/2022 10:16 EDT Electronic Signature on File Electronically Reviewed/Signed by: Brandy Deleon MD Author Signature Dt/Tm:09/21/2024 04:01 PM Department of Dermatology [facility] Patient Care team information Care Team Personnel Name: DO Durán Susan M Position: Referring DIRECT Member Role: Primary Care Provider Address: [address] [place] [address] Name: JEFFRY Mccall Christina L Position: Physician - Podiatry Member Role: Lifetime Relationship Address: [address] [place] [address] [place] Care Team Related Persons Name: JENNIFER BLAS Name: JENNIFER BLAS"
--- OUTSIDE RECORDS SUMMARY | 2024-10-15 23:59 | External Medical Summary | Summary of Care ---
Author Name Unknown Organization [facility] Address [address] [facility] [place] [address] Phone [phone] Care Team Providers Care Ledge Man Name Role Phone Jazmine Anguiano MD Primary Care Provider Reason for Visit * Reason Onset Date Comments Advice 10/09/202410/10 Encounter Details Date Type Department Care Team (Late st Contact Info) Description 10/09/2024 Telephone Family Practice [facility] [address] [place] [address] Jazmine Anguiano MD [address] [place] [address] Advice (10/10) Allergies Active Allergy Reactions Criticality Noted Date Comments Statins 10/15/2022 Joint pain documented as of this encounter (statuses as of 10/11/2024) Medications Cholecalciferol (VITAMIN D3) 2000 units Tablet Take 1 Tablet by mouth in the morning. Active Multiple Vitamins-Minerals (MULTIVITAMIN ADULT) TABS Take by mouth. Activ e Coenzyme Q10 (CO Q 10) 100 MG CAPS Take by mouth. Active Latanoprost 0.005 % Ophthalmic Solution (Xalatan) Instill 1 Drop into both eyes at bedtime. 11/05/19 21 Active OneTouch Verio w/Device KitIndications:Type 2 diabetes mellitus with hemoglobin A1c goal of less than 7.0% ([facility]) Use up to 4 times a day E11.9 1 Kit 01/30/20 21 Active Aspirin 81 MG Oral Tablet Delayed Release Take 1 Tablet by mouth in the morning. Active [place]-3 Fish Oil 1200 MG Oral Capsule Take 1 Cap by mouth daily. Active Brimonidine Tartrate-Timolol 0.2-0.5 % Ophthalmic Solution (Combigan) Instill 1 Drop into both eyes in the morning and 1 Drop before bedtime. Active OneTouch Verio In Vitro Strip (Glucose Blood)Indications:Ty pe 2 diabetes mellitus with hemoglobin A1c goal [...] Dizziness. 30 Tablet 1 12/25/19 23 Active Ondansetron HCl 4 MG Oral Tablet Take 1 Tablet by mouth every 6 hours as needed for Nausea. 30 Tablet 12/25/19 23 Active Metoprolol Succinate ER 100 MG Oral Tablet Extended Release 24 Hour (toPROL XL)Indications:Atria l fibrillation, unspecified type (HCC),Essential hypertension with goal blood pressure less than 130/80 TAKE 1 TABLET BY MOUTH TWICE A DAY 180 Tablet 3 10/11/19 24 Active Spironolactone 25 MG Oral Tablet (Aldactone)Indicatio ns:Nonischemic cardiomyopathy (HCC) Take 0.5 Tablets by mouth in the morning. 45 Tablet 3 11/10/19 24 Active Entresto 24-26 MG Oral Tablet (sacubitril-valsarta n 24-26 mg per tab)Indications:Jazmin schemic cardiomyopathy (HCC) TAKE 1 TABLET BY MOUTH TWICE A DAY 180 Tablet 3 12/21/19 24 Active Trulicity 4.5 MG/0.5ML Subcutaneous Solution Pen-injector (Dulaglutide)Indicat ions:Type 2 diabetes mellitus with hemoglobin A1c goal of less than 7.0% (HCC) INJECT 4.5 MG (0.5 MLS) UNDER THE SKIN ONCE A WEEK. 6 mL 3 12/21/19 24 Active Repatha SureClick 140 MG/ML Subcutaneous Solution Auto-injector (evolocumab) Inject 140 mg under the skin every 14 days. Remove from refrigerator 30 minutes prior to injection. 6 mL 3 5 1:19 PM EST 02/01/20 24 Active CPAP every night at bedtime. Active Fddgbis-Qjjcem-Mzoqn Pertussis 5-2.5-18.5 LF-MCG/0.5 Suspension Prefilled Syringe (Boostrix) Inject into a large muscle. 0.5 mL 02/14/20 24 Active metFORMIN HCl 500 MG Oral Tablet (Glucophage)Indicati ons:Type 2 diabetes mellitus with hemoglobin A1c goal of less than 7.0% (HCC) TAKE 1 TABLET BY MOUTH TWICE A DAY WITH BREAKFAST AND DINNER 180 Tablet 2 02/21/20 24 Active Omeprazole 20 MG Oral Capsule Delayed Release (PriLOSEC)Indication s:Nonischemic cardiomyopathy (HCC) TAKE 1 CAPSULE BY MOUTH EVERY DAY 90 Capsule 3 02/21/20 24 Active Ozempic (2 MG/DOSE) 8 MG/3ML Subcutaneous Solution Pen-injector (Semaglutide (2 MG/DOSE))Indications :Type 2 diabetes mellitus with hemoglobin A1c goal of less than 7.0% (HCC) Inject 2 mg under the skin once a week. 9 mL 1 06/26/20 24 Active Xarelto 20 MG Oral Tablet (Rivaroxaban)Indicat ions:Atrial fibrillation, unspecified type (HCC) TAKE 1 TABLET BY MOUTH EVERY DAY WITH DINNER 90 Tablet 06/26/20 24 Active Cefuroxime Axetil 500 MG Oral Tablet (Ceftin)Indications: Acute laryngotracheitis Take 1 Tablet by mouth in the morning and 1 Tablet before bedtime. 20 Tablet 06/27/20 24 Active Benzonatate 200 MG Oral CapsuleIndications:A cute laryngotracheitis Take 1 Capsule by mouth 3 times a day as needed for Cough. 30 Capsule 1 06/29/20 24 Active Furosemide 20 MG Oral Tablet (Lasix)Indications:E ssential hypertension with goal blood pressure less than 130/80 TAKE 1 TABLET BY MOUTH EVERY DAY IN THE MORNING 90 Tablet 07/19/20 24 Active Amiodarone HCl 200 MG Oral Tablet (Cordarone)Indicatio ns:Coronary artery disease involving [place] coronary artery of [place] heart without angina pectoris,Essential hypertension with goal blood pressure less than 130/80 TAKE 1 TABLET BY MOUTH EVERY DAY IN THE MORNING 90 Tablet 3 08/01/20 24 Active documented as of this encounter (statuses as of 10/11/2024) Active Problems Problem Noted Date Diagnosed Date [...] cardiomyopathy 10/03/2018 Coronary artery disease invo lving [place] coronary artery of [place] heart without angina pectoris 10/03/2018 documented as of this encounter (statuses as of 10/11/2024) Resolved Problems Problem Noted Date Diagnosed Date Resolved Date Obesity, morbid (more than 1 00 lbs over ideal weight or BMI > 40) 05/27/2021 12/06/2023 Body mass index (BMI) of 40. 0 to 44.9 in adult 10/30/2019 06/05/2021 Overview: Per Obesity protocol documented as of this encounter (statuses as of 10/11/2024) Immunizations Name Administration Dates Next Due COVID-19 mRNA, LNP-s, No Pre serve, 2-Dose Series ([employer]) 11/09/2020,10/19/2020 COVID-19, MRNA-LNP, PF, 50 M CG/0.5 [...] No 11/08/2023 Does the household have a unm cancer centerlar source of income? (Household - for ages [...] 18 years and over) Not on file 03/18/202 4 Are you (or your family) kb eless [...] AM EST documented as of this encounter Miscellaneous Notes * Telephone Encounter - Juju Santamaria LPN - 10/11/2024 1:49 PM EST Sent my g. Confirmed that pt has been recently active on the [employer] chart portal. * Telephone Encounter - Nikole Suarez CMA - 10/10/2024 12:08 PM EST LVM for pt to call back at [phone] * Telephone Encounter - Florina Vieira MED ASSIST - 10/09/2024 8:32 AM EST message left for patient to call back. Will need tested first. Recommend an office visit here or urgent care, can also get Covid + Flu test over the counter. * Telephone Encounter - Libia Quintero OSA - 10/09/2024 8:23 AM EST Pt calling to say his was recently diagnosed with the flu and he is starting to have symptoms such as congestion and couphing. He is wondering if there is some medicine he should take. Please advise, thank you. documented in this encounter Plan of Treatment Health Maintenance Due Date Last Done Comments Hepatitis C Screening 01/07/1974 Cologuard 01/07/2001 Fecal Occult Blood Test 01/07/2001 Sigmoidoscopy 01/07/2001 Depression Screening 08/26/2023 08/26/2022 Diabetic Eye Exam 09/08/2023 09/08/2022, 09/16/2021 COVID-19 Vaccine ( season) 2024 04/29/2024, 05/29/2023, 05/04/2022, Additional history exists HbA1c 07/09/2024 01/07/2024, 09/23, 12/15/2022, Additional history exists Albumin/Creatinine Ratio 10/11/2024 024, 01/09/2022, 10/17/2019 GFR 10/11/2024 10/11/2023, 01/21, 08/26/2022, Additional history exists Pneumococcal Vaccine: 50+ Years (3 of 3 - PCV20 or PCV21) 10/17/2024 10/17/2019, 07/19/2018 Diabetic Foot Exam 12/05/2024 12/06/2023, 07/11/2021 Colonoscopy 01/22/2033 01/22/2023, 10/25/2017 Colorectal Cancer Screening [...] filedocumented as of this encounter Care Teams Ledge Man Relationship Specialty Start Date End Date Jazmine Anguiano MD [address] [place] [id number] PCP - General Internal Medicine 12/06/23 documented as of this encounter
--- OUTSIDE RECORDS SUMMARY | 2024-10-16 | External Medical Summary | Summary of Care ---
Author Name Unknown Organization [facility] Address [address] [facility] [place] [address] Phone [phone] Care Team Providers Care System Configuration Specialist Name Role Phone Jazmine Anguiano MD Primary Care Provider Reason for Visit * Reason Onset Date Comments No Better 07/17/2024 cough Advice 07/17/2024 Encounter Details Date Type Department Care Team (Late st Contact Info) Description 07/17/2024 Telephone Family Practice [facility] [email or web address] [place] [id number] Jazmine Anguiano MD [email or web address] [place] [phone] No Better (cough); Advice Allergies Active Allergy Reactions Criticality Noted Date Comments Statins 10/15/2022 Joint pain documented as of this encounter (statuses as of 07/18/2024) Medications Cholecalciferol (VITAMIN D3) 2000 units Tablet [...] hemoglobin A1c goal of less than 7.0% ([facility]) Use up to 4 times a day E11.9 1 Kit 01/30/20 21 Active Aspirin 81 MG Oral Tablet Delayed Release Take 1 Tablet by mouth in the morning. Active [place]-3 Fish Oil 1200 MG Oral Capsule Take 1 Cap by mouth daily. Active Brimonidine Tartrate-Timolol 0.2-0.5 % Ophthalmic Solution (Combigan) Instill 1 Drop into both eyes in the morning and 1 Drop before bedtime. Active OneTouch Verio In Vitro Strip (Glucose Blood)Indications:Ty pe 2 diabetes mellitus with hemoglobin A1c goal of less than 7.0% ([facility]) Use up to 4 times a day [...] for Nausea. 30 Tablet 12/25/19 23 Active Amiodarone HCl 200 MG Oral Tablet (Cordarone)Indicatio ns:Coronary artery disease involving [place] coronary artery of [place] heart without angina pectoris,Essential hypertension with goal blood pressure less than 130/80 Take 1 Tablet by mouth in the morning. 90 Tablet 3 05/06/20 23 Active Furosemide 20 MG Oral Tablet (Lasix)Indications:E ssential hypertension with goal blood pressure less than 130/80 TAKE 1 TABLET BY MOUTH EVERY DAY IN THE MORNING 90 Tablet 3 08/04/20 23 Active Metoprolol Succinate ER 100 MG [...] minutes prior to injection. 6 mL 3 4 2:58 PM EST 02/01/20 24 Active CPAP every night at bedtime. Active Miruarg-Qdopin-Hhxot Pertussis 5-2.5-18.5 LF-MCG/0.5 Suspension Prefilled Syringe (Boostrix) [...] Cough. 30 Capsule 1 06/29/20 24 Active documented as of this encounter (statuses as of 07/18/2024) Active Problems Problem Noted Date Diagnosed Date [...] cardiomyopathy 10/03/2018 Coronary artery disease invo lving [place] coronary artery of [place] heart without angina pectoris 10/03/2018 documented as of this encounter (statuses as of 07/18/2024) Resolved Problems Problem Noted Date Diagnosed Date Resolved Date Obesity, morbid (more than 1 00 lbs over ideal weight or BMI > 40) 05/27/2021 12/06/2023 Body mass index (BMI) of 40. 0 to 44.9 in adult 10/30/2019 06/05/2021 Overview: Per Obesity protocol documented as of this encounter (statuses as of 07/18/2024) Immunizations Name Administration Dates Next Due COVID-19 mRNA, LNP-s, No Pre serve, 2-Dose Series ([employer]) 11/09/2020,10/19/2020 COVID-19, MRNA-LNP, PF, 50 M CG/0.5 [...] 18 years and over) Not on file 4 Are you (or your family) kb [...] ages 0-17 years) Not on file 11/08/2023 Sex and Gender Information Value Date Recorded Sex Assigned at Male 09/22/2019 10:05 AM EST Legal Sex Male 4:28 PM EST Gender Identity Male 09/22/2019 10:05 AM EST Sexual Orientation Straight 09/22/2019 10 :05 AM EST documented as of this encounter Miscellaneous Notes * Telephone Encounter - Tuyet Asencio LPN - 07/18/2024 5:00 PM EST Called and spoke with patient. Notified of advice/recommendations. Patient verbalized understanding. No further questions or concerns at this time. * Telephone Encounter - Jazmine Anguiano MD - 07/18/2024 2:14 PM EST Seen by colleague at [facility]. Ceftin and tessalon Rx'd. No role for antibiotics at this point. Would not recommend decongestants due to cardiac dx. Recommend humidification, can try vicks vaporub with menthol, elevating head with extra pillow, sugar free cough drops to keep mouth moist. * Telephone Encounter - Tueyt Asencio LPN - 07/18/2024 1:52 PM EST Called and spoke with patient regarding symptoms. Patient was seen on 06/27/24 for URI symptoms. Reports cough started around 06/23/24. Cough has improved but is still happening mainly when patient is laying flat in bed or if patient gets a dry mouth. Patient denies coughing up mucus and/or blood. Patient also denies chest discomfort, fever, SOB, wheezing, weight gain, & edema. No OV available before the holiday. Pt looking for OTC recommendations. If anything is sent, pleaseuse [facility]. * Telephone Encounter - Jolly Juarez OSA - 07/17/2024 8:30 AM EST 1. When were you seen for this problem? 06/27/24 2. What provider did you see for this problem? Dr. Sin 3. What medications are you presently taking? n/a 4. What is it that is no better? cough documented in this encounter Plan of Treatment Upcoming Encounters Date Type Department Care Team (Late st Contact Info) Description 08/07/2024 8:30 AM EST [facility] [address] [place] [phone] [facility] [place] [address] 09/19/2024 11:20 AM EST Office Visit [facility], [place] [address] [place] [phone] Miriam Rivas DO [address] [place] [address] Health Maintenance Due Date Last Done Comments [...] 01/21, 08/26/2022, Additional history exists Pneumococcal Vaccine: 65+ Years (3 of 3 - PPSV23 or PCV20) 10/17/2024 10/17/2019, 07/19/2018 Diabetic Foot Exam 12/05/2024 [...] filedocumented as of this encounter Care Teams System Configuration Specialist Relationship Specialty Start Date End Date Jazmine Anguiano MD [address] [place] [phone] PCP - General Internal Medicine 12/06/23 documented as of this encounter
--- OUTSIDE RECORDS SUMMARY | 2024-10-16 | External Medical Summary | Summary of Care ---
Author Name Unknown Organization [facility] Address [address] [facility] [place] [address] Phone [phone] Care Team Providers Care Ethics Manager Name Role Phone Sneha Anguiano MD Primary Care Provider Reason for Visit * Reason Comments eRx-Medication Refill Encounter Details Date Type Department Care Team (Late st Contact Info) Description 06/24/2024 Refill Family Practice [facility] [address] [place] [address] Sneha Anguiano MD [address] [place] [address] Type 2 diabetes mellitus with hemoglobin A1c goal of less than 7.0% ([facility]) Allergies Active Allergy Reactions Criticality Noted Date Comments Statins 10/15/2022 Joint pain documented as of this encounter (statuses as of 06/26/2024) Medications Medication Sig Dispensed Refills Start Date End Date Status Cholecalciferol (VITAMIN D3) 2000 units Tablet Take 1 Tablet by mouth in the morning. Active Multiple Vitamins-Minerals (MULTIVITAMIN ADULT) TABS Take by mouth. Active Coenzyme Q10 (CO Q 10) 100 MG CAPS Take by mouth. Activ e Latanoprost 0.005 % Ophthalmic Solution (Xalatan) Instill 1 Drop into both eyes at bedtime. 1 Active OneTouch Verio w/Device KitIndications:Typ e 2 diabetes mellitus with hemoglobin A1c goal of less than 7.0% (HCC) Use up to 4 times a day E11.9 1 Kit 1 Active Aspirin 81 MG Oral Tablet Delayed Release Take 1 Tablet by mouth in the morning. Active [place]-3 Fish Oil 1200 MG Oral Capsule Take 1 Cap by mouth daily. Active Brimonidine Tartrate-Timolol 0.2-0.5 % Ophthalmic Solution (Combigan) Instill 1 Drop into both eyes in the morning and 1 Drop before bedtime. Active OneTouch Verio In Vitro Strip (Glucose Blood)Indications: Type 2 diabetes mellitus with hemoglobin A1c goal of less than 7.0% ([facility]) Use up to 4 times a day E11.9 400 Strip 3 2 Active OneTouch Delica Lancets 33G Use as directed 4 times a day as needed for Hyperglycemia (high sugar) or Hypoglycemia (low sugar). 400 Each 3 2 Active Meclizine HCl 25 MG Oral Tablet Chewable Take 1 Tablet by mouth 3 times a day as needed for Dizziness. 30 Tablet 1 3 Active Ondansetron HCl 4 MG Oral Tablet Take 1 Tablet by mouth every 6 hours as needed for Nausea. 30 Tablet 3 Active Amiodarone HCl 200 MG Oral Tablet (Cordarone)Indicat ions:Coronary artery disease involving [place] coronary artery of [place] heart without angina pectoris,Essential hypertension with goal blood pressure less than 130/80 Take 1 Tablet by mouth in the morning. 90 Tablet 3 3 Active Xarelto 20 MG Oral Tablet (Rivaroxaban)Indic ations:Atrial fibrillation, unspecified type ([facility]) TAKE 1 TABLET BY MOUTH EVERY DAY WITH DINNER 90 Tablet 3 3 Active Furosemide 20 MG Oral Tablet (Lasix)Indications :Essential hypertension with goal blood pressure less than 130/80 TAKE 1 TABLET BY MOUTH EVERY DAY IN THE MORNING 90 Tablet 3 3 Active Metoprolol Succinate ER 100 MG Oral Tablet Extended Release 24 Hour (toPROL XL)Indications:Atr ial fibrillation, unspecified type (HCC),Essential hypertension with goal blood pressure less than 130/80 TAKE 1 TABLET BY MOUTH TWICE A DAY 180 Tablet 3 4 Active Spironolactone 25 MG Oral Tablet (Aldactone)Indicat ions:Nonischemic cardiomyopathy (HCC) Take 0.5 Tablets by mouth in the morning. 45 Tablet 3 4 Active Entresto 24-26 MG Oral Tablet (sacubitril-valsar allen 24-26 mg per tab)Indications:No nischemic cardiomyopathy (HCC) TAKE 1 TABLET BY MOUTH TWICE A DAY 180 Tablet 3 4 Active Trulicity 4.5 MG/0.5ML Subcutaneous Solution Pen-injector (Dulaglutide)Indic ations:Type 2 diabetes mellitus with hemoglobin A1c goal of less than 7.0% (HCC) INJECT 4.5 MG (0.5 MLS) UNDER THE SKIN ONCE A WEEK. 6 mL 3 4 Active Repatha SureClick 140 MG/ML Subcutaneous Solution Auto-injector (evolocumab) Inject 140 mg under the skin every 14 days. Remove from refrigerator 30 minutes prior to injection. 6 mL 3 4 Active CPAP every night at bedtime. Active Vhrelzp-Mihtxb-Xlo ll Pertussis 5-2.5-18.5 LF-MCG/0.5 Suspension Prefilled Syringe (Boostrix) Inject into a large muscle. 0.5 mL 4 Active metFORMIN HCl 500 MG Oral Tablet (Glucophage)Indica tions:Type 2 diabetes mellitus with hemoglobin A1c goal of less than 7.0% (HCC) TAKE 1 TABLET BY MOUTH TWICE A DAY WITH BREAKFAST AND DINNER 180 Tablet 2 4 Active Omeprazole 20 MG Oral Capsule Delayed Release (PriLOSEC)Indicati ons:Nonischemic cardiomyopathy (HCC) TAKE 1 CAPSULE BY MOUTH EVERY DAY 90 Capsule 3 4 Active Ozempic (2 MG/DOSE) 8 MG/3ML Subcutaneous Solution Pen-injector (Semaglutide (2 MG/DOSE))Indicatio ns:Type 2 diabetes mellitus with hemoglobin A1c goal of less than 7.0% (HCC) Inject 2 mg under the skin once a week. 9 mL 1 4 Active Ozempic (2 MG/DOSE) 8 MG/3ML Subcutaneous Solution Pen-injector (Semaglutide (2 MG/DOSE))Indicatio ns:Type 2 diabetes mellitus with hemoglobin A1c goal of less than 7.0% (HCC) Inject 2 mg under the skin once a week. 9 mL 1 4 024 Discontinued documented as of this encounter (statuses as of 06/26/2024) Active Problems Problem Noted Date Diagnosed Date [...] cardiomyopathy 10/03/2018 Coronary artery disease invo lving [place] coronary artery of [place] heart without angina pectoris 10/03/2018 documented as of this encounter (statuses as of 06/26/2024) Resolved Problems Problem Noted Date Diagnosed Date Resolved Date Obesity, morbid (more than 1 00 lbs over ideal weight or BMI > 40) 05/27/2021 12/06/2023 Body mass index (BMI) of 40. 0 to 44.9 in adult 10/30/2019 06/05/2021 Overview: Per Obesity protocol documented as of this encounter (statuses as of 06/26/2024) Immunizations Name Administration Dates Next Due COVID-19 mRNA, LNP-s, No Pre serve, 2-Dose Series ([place]) 11/09/2020,10/19/2020 COVID-19, MRNA-LNP, PF, 50 M CG/0.5 [...] Assigned at Male 09/22/2019 10:05 AM EST Gender Identity Male 09/22/2019 10:05 AM EST Sexual Orientation Straight 09/22/2019 10 :05 AM EST Job Start Date Occupation Industry Not on file Not on file Not on file documented as of this encounter Miscellaneous Notes * Telephone Encounter - Sylwia Laguna RP - 06/26/2024 11:03 AM EST Signed Prescriptions: Disp Refills Ozempic (2 MG/DOSE) 8 MG/3ML Subcutaneous *9 mL 1 Sig: Inject 2 mg under the skin once a week.Authorizing Provider: SNEHA ANGUIANO User: SYLWIA LAGUNA documented in this encounter Plan of Treatment Upcoming Encounters Date Type Department Care Team (Late st Contact Info) Description 08/07/2024 8:30 AM EST Laboratory Laboratory, [facility] [address] [place] [phone] Johny Tan [address] [place] [address] 09/19/2024 11:20 AM EST Office Visit [facility] [address] [place] [phone] Miriam Rivas DO [address] [place] [address] Health Maintenance Due Date Last Done Comments [...] as of this encounter Visit Diagnoses Diagnosis Type 2 diabetes mellitus with hemoglobin A1c goal of less than 7.0% (HCC) documented in this encounter Care Teams Ethics Manager Relationship Specialty Start Date End Date Sneha Anguiano MD [address] [place] [address] PCP - General Internal Medicine 12/06/23 documented as of this encounter
--- OUTSIDE RECORDS SUMMARY | 2024-10-16 | External Medical Summary | Summary of Care ---
Author Name Unknown Organization [facility] Address [address] [facility] [place] [address] Phone [phone] Care Team Providers Care Upkeep Worker Name Role Phone Jazmine Anguiano MD Primary Care Provider Reason for Visit * Reason Comments eRx-Medication Refill Encounter Details Date Type Department Care Team (Late st Contact Info) Description 06/24/2024 Refill Cardiology, [facility] [address] [place] [address] Ottoniel Mayorga PA-C [address] [place] [address] Encounter for long-term (current) use of medications*; Atrial fibrillation, unspecified type (HCC) Allergies Active Allergy Reactions Criticality Noted Date Comments Statins 10/15/2022 Joint pain documented as of this encounter (statuses as of 06/27/2024) Medications Medication Sig Dispensed Refills Start Date [...] goal of less than 7.0% ([facility]) Use up to 4 times a day E11.9 1 Kit 1 Active Aspirin 81 MG Oral Tablet Delayed Release Take 1 Tablet by mouth in the morning. Active [place]-3 Fish Oil 1200 MG Oral Capsule Take 1 Cap by mouth daily. Active Brimonidine Tartrate-Timolol 0.2-0.5 % Ophthalmic Solution (Combigan) Instill 1 Drop into both eyes in the morning and 1 Drop before bedtime. Active OneTouch Verio In Vitro Strip (Glucose Blood)Indications: Type 2 diabetes mellitus with hemoglobin A1c goal of less than 7.0% ([facility]) Use up to 4 times a day [...] Oral Tablet (Cordarone)Indicat ions:Coronary artery disease involving [place] coronary artery of [place] heart without angina pectoris,Essential hypertension with goal blood pressure less than 130/80 Take 1 Tablet by mouth in the morning. 90 Tablet 3 3 Active Furosemide 20 [...] Active CPAP every night at bedtime. Active Tlohwkk-Uwmnol-Pqc ll Pertussis 5-2.5-18.5 LF-MCG/0.5 Suspension Prefilled Syringe [...] a week. 9 mL 1 4 Active Xarelto 20 MG Oral Tablet (Rivaroxaban)Indic ations:Atrial fibrillation, unspecified type (HCC) TAKE 1 TABLET BY MOUTH EVERY DAY WITH DINNER 90 Tablet 4 Active Xarelto 20 MG Oral Tablet (Rivaroxaban)Indic ations:Atrial fibrillation, unspecified type (HCC) TAKE 1 TABLET BY MOUTH EVERY DAY WITH DINNER 90 Tablet 3 3 024 Discontinued documented as of this encounter (statuses as of 06/27/2024) Active Problems Problem Noted Date Diagnosed Date [...] cardiomyopathy 10/03/2018 Coronary artery disease invo lving [place] coronary artery of [place] heart without angina pectoris 10/03/2018 documented as of this encounter (statuses as of 06/27/2024) Resolved Problems Problem Noted Date Diagnosed Date Resolved Date Obesity, morbid (more than 1 00 lbs over ideal weight or BMI > 40) 05/27/2021 12/06/2023 Body mass index (BMI) of 40. 0 to 44.9 in adult 10/30/2019 06/05/2021 Overview: Per Obesity protocol documented as of this encounter (statuses as of 06/27/2024) Immunizations Name Administration Dates Next Due COVID-19 mRNA, LNP-s, No Pre serve, 2-Dose Series ([employer]) 11/09/2020,10/19/2020 COVID-19, MRNA-LNP, PF, 50 M CG/0.5 [...] encounter Miscellaneous Notes * Telephone Encounter - Nhung Varghese - 06/27/2024 8:51 PM EST Received message from [facility] regarding patient needing an appointment and labs. Patient was notified. Successfully contacted patient and provided [facility] message. * Telephone Encounter - Felice Turk RP - 06/26/2024 12:01 PM ESTSigned Prescriptions: Disp Refills Xarelto 20 MG Oral Tablet (Rivaroxaban) 90 Tab*0 Sig: TAKE 1 TABLET BY MOUTH EVERY DAY WITH DINNER Authorizing Provider: OTTONIEL MAYORGA Ordering User: FELICE TURK * Telephone Encounter - Felice Turk [facility] - 06/26/2024 11:54 AM EST Provided 90 days supply with 0 refill. Per refill protocol patient should have CBC on file within past year. Lab orders placed. Please contact patient to schedule office visit with CARDIOLOGY and advise of labs ordered for blood draw. Fasting is not required. Advise to obtain labs before requesting the next refill. Last Visit: 11/10/2023 (in office), Return in about 6 months (around 05/12/2024) Next Visit: Visit date not found Thank you, Felice Turk, PharmD Clinical Pharmacist [facility] ([facility]) [phone] 06/26/2024, 12:00 PM documented in this encounter Plan of Treatment Upcoming Encounters Date Type Department Care Team (Late st Contact Info) Description 08/07/2024 8:30 AM EST Laboratory Laboratory, [facility] [address] [facility] [place] [phone] [facility] [address] [facility] [place] [address] 09/19/2024 11:20 AM EST Office Visit [facility] Disorders [facility]tr [facility] [address] [place] [phone] Miriam Rivas DO [address] [place] [address] Scheduled Orders Name Type Priority Associated Diagnoses Orde r Schedule CBC WITH WBC DIFFERENTIAL Lab Routine Encounter for long-term (current) use of medications Expected: 07/03/2024 (Approximate), Expires: 06/26/2025 Health Maintenance Due Date Last Done Comments [...] as of this encounter Visit Diagnoses Diagnosis Encounter for long-term (current) use of medications- Primary Encounter for long-term (current) use of other medications Atrial fibrillation, unspecified type (HCC) documented in this encounter Care Teams Upkeep Worker Relationship Specialty Start Date End Date Jazmine Anguiano MD [address] [place] [address] PCP - General Internal Medicine 12/06/23 documented as of this encounter
--- OUTSIDE RECORDS SUMMARY | 2024-10-16 | External Medical Summary | Summary of Care ---
Author Name Unknown Organization [facility] Address [address] [facility] [place] [address] Phone [phone] Care Team Providers Care Hacksaw Inspector Name Role Phone Jazmine Anguiano MD Primary Care Provider Encounter Details Date Type Department Care Team (Late st Contact Info) Description 07/27/2024 Result Scan Unspecified Department Eva Guevara, DO [address] [facility] [place] [address] <No scans attached> Allergies Active Allergy Reactions Criticality Noted Date Comments Statins 10/15/2022 Joint pain documented as of this encounter (statuses as of 07/27/2024) Medications Cholecalciferol (VITAMIN D3) 2000 units Tablet [...] hemoglobin A1c goal of less than 7.0% ([facility]) Use up to 4 times a day E11.9 1 Kit 01/30/20 21 Active Aspirin 81 MG Oral Tablet Delayed Release Take 1 Tablet by mouth in the morning. Active [place]-3 Fish Oil 1200 MG Oral Capsule Take [...] Oral Tablet (Cordarone)Indicatio ns:Coronary artery disease involving [place] coronary artery of [place] heart without angina pectoris,Essential hypertension with goal blood pressure less than 130/80 Take 1 Tablet by mouth in the morning. 90 Tablet 3 05/06/20 23 Active Metoprolol Succinate ER 100 MG [...] Active CPAP every night at bedtime. Active Ogaylel-Lspilz-Tkigz Pertussis 5-2.5-18.5 LF-MCG/0.5 Suspension Prefilled Syringe (Boostrix) [...] THE MORNING 90 Tablet 07/19/20 24 Active documented as of this encounter (statuses as of 07/27/2024) Active Problems Problem Noted Date Diagnosed Date [...] cardiomyopathy 10/03/2018 Coronary artery disease invo lving [place] coronary artery of [place] heart without angina pectoris 10/03/2018 documented as of this encounter (statuses as of 07/27/2024) Resolved Problems Problem Noted Date Diagnosed Date Resolved Date Obesity, morbid (more than 1 00 lbs over ideal weight or BMI > 40) 05/27/2021 12/06/2023 Body mass index (BMI) of 40. 0 to 44.9 in adult 10/30/2019 06/05/2021 Overview: Per Obesity protocol documented as of this encounter (statuses as of 07/27/2024) Immunizations Name Administration Dates Next Due COVID-19 mRNA, LNP-s, No Pre serve, 2-Dose Series ([employer]) 11/09/2020,10/19/2020 COVID-19, MRNA-LNP, PF, 50 M CG/0.5 [...] Description 08/07/2024 8:30 AM EST Laboratory Laboratory, [facility] [address] [facility] [place] [phone] TanJohny reagan [facility] [address] [facility] [place] [address] 09/19/2024 11:20 AM EST Office Visit [facility]tr [facility] [address] [facility] [place] [phone] Miriam Rivas DO [address] [facility] [place] [address] Health Maintenance Due Date Last Done Comments [...] Not on filedocumented as of this encounter Procedures Procedure Name Priority Date/Time Associated Diagnosis Comments CARDIOLOGY SCANNED RESULT 07/27/2024 documented in this encounter Results * CARDIOLOGY SCANNED RESULT (07/27/2024) 07/27/2024 us Eva Guevara DO OTHER Final R esult documented in this encounter Care Teams Hacksaw Inspector Relationship Specialty Start Date End Date Jazmine Anguiano MD [address] [place] [address] PCP - General Internal Medicine 12/06/23 documented as of this encounter
--- OUTSIDE RECORDS SUMMARY | 2024-10-16 | External Medical Summary | Summary of Care ---
Author Name Unknown Organization [facility] Address [address] [facility] [address] Phone [phone] Care Team Providers Care Metal Fabricator Apprentice Name Role Phone Jazmine Anguiano MD Primary Care Provider Reason for Visit * Reason Comments eRx-Medication Refill Encounter Details Date Type Department Care Team (Late st Contact Info) Description 07/17/2024 Refill Cardiology, [facility] [address] [place] [address] Ottoniel Mayorga PA-C [address] [place] [address] Encounter for long-term (current) use of medications*; Essential hypertension with goal blood pressure less than 130/80 Allergies Active Allergy Reactions Criticality Noted Date Comments Statins 10/15/2022 Joint pain documented as of this encounter (statuses as of 07/21/2024) Medications Cholecalciferol (VITAMIN D3) 2000 units Tablet [...] A1c goal of less than 7.0% ([facility]) Use up to 4 times a day E11.9 1 Kit 021 Active Aspirin 81 MG Oral Tablet Delayed Release Take 1 Tablet by mouth in the morning. Active [place]-3 Fish Oil 1200 MG Oral Capsule Take 1 Cap by mouth daily. Active Brimonidine Tartrate-Timolol 0.2-0.5 % Ophthalmic Solution (Combigan) Instill 1 Drop into both eyes in the morning and 1 Drop before bedtime. Active OneTouch Verio In Vitro Strip (Glucose Blood)Indications:T ype 2 diabetes mellitus with hemoglobin A1c goal of less than 7.0% ([facility]) Use up to 4 times a [...] for Dizziness. 30 Tablet 1 023 Active Ondansetron HCl 4 MG Oral Tablet Take 1 Tablet by mouth every 6 hours as needed for Nausea. 30 Tablet 023 Active Amiodarone HCl 200 MG Oral Tablet (Cordarone)Indicati ons:Coronary artery disease involving [place] coronary artery of [place] heart without angina pectoris,Essential hypertension with goal blood pressure less than 130/80 Take 1 Tablet by mouth in the morning. 90 Tablet 3 023 Active Metoprolol Succinate ER 100 MG [...] A DAY 180 Tablet 3 024 Active Trulicity 4.5 MG/0.5ML Subcutaneous Solution Pen-injector (Dulaglutide)Indica tions:Type 2 diabetes mellitus with hemoglobin A1c goal of less than 7.0% (HCC) INJECT 4.5 MG (0.5 MLS) UNDER THE SKIN ONCE A WEEK. 6 mL 3 024 Active Repatha SureClick 140 MG/ML Subcutaneous Solution Auto-injector (evolocumab) Inject 140 mg under the skin every 14 days. Remove from refrigerator 30 minutes prior to injection. 6 mL 3 07/12/20 24 2:58 PM EST 024 Active CPAP every night at bedtime. Active Cvlqwjl-Lfmmsf-Zaor l Pertussis 5-2.5-18.5 LF-MCG/0.5 Suspension Prefilled Syringe (Boostrix) Inject into a large muscle. 0.5 mL 024 Active metFORMIN HCl 500 MG Oral Tablet (Glucophage)Indicat ions:Type 2 diabetes mellitus with hemoglobin A1c goal of less than 7.0% (HCC) TAKE 1 TABLET BY MOUTH TWICE A DAY WITH BREAKFAST AND DINNER 180 Tablet 2 Active Omeprazole 20 MG Oral Capsule Delayed Release (PriLOSEC)Indicatio ns:Nonischemic cardiomyopathy (HCC) TAKE 1 CAPSULE BY MOUTH EVERY DAY 90 Capsule 3 024 Active Ozempic (2 MG/DOSE) 8 MG/3ML Subcutaneous Solution Pen-injector (Semaglutide (2 MG/DOSE))Indication s:Type 2 diabetes mellitus with hemoglobin A1c goal of less than 7.0% (HCC) Inject 2 mg under the skin once a week. 9 mL 1 024 Active Xarelto 20 MG Oral Tablet (Rivaroxaban)Indica tions:Atrial fibrillation, unspecified type (HCC) TAKE 1 TABLET BY MOUTH EVERY DAY WITH DINNER 90 Tablet Active Cefuroxime Axetil 500 MG Oral Tablet (Ceftin)Indications :Acute laryngotracheitis Take 1 Tablet by mouth in the morning and 1 Tablet before bedtime. 20 Tablet 024 Active Benzonatate 200 MG Oral CapsuleIndications: Acute laryngotracheitis Take 1 Capsule by mouth 3 times a day as needed for Cough. 30 Capsule 1 024 Active Furosemide 20 MG Oral Tablet (Lasix)Indications: Essential hypertension with goal blood pressure less than 130/80 TAKE 1 TABLET BY MOUTH EVERY DAY IN THE MORNING 90 Tablet 024 Active Furosemide 20 MG Oral Tablet (Lasix)Indications: Essential hypertension with goal blood pressure less than 130/80 TAKE 1 TABLET BY MOUTH EVERY DAY IN THE MORNING 90 Tablet 3 023 07/19 Discontinued documented as of this encounter (statuses as of 07/21/2024) Active Problems Problem Noted Date Diagnosed Date [...] cardiomyopathy 10/03/2018 Coronary artery disease invo lving [place] coronary artery of [place] heart without angina pectoris 10/03/2018 documented as of this encounter (statuses as of 07/21/2024) Resolved Problems Problem Noted Date Diagnosed Date Resolved Date Obesity, morbid (more than 1 00 lbs over ideal weight or BMI > 40) 05/27/2021 12/06/2023 Body mass index (BMI) of 40. 0 to 44.9 in adult 10/30/2019 06/05/2021 Overview: Per Obesity protocol documented as of this encounter (statuses as of 07/21/2024) Immunizations Name Administration Dates Next Due COVID-19 mRNA, LNP-s, No Pre serve, 2-Dose Series ([employer]) 11/09/2020,10/19/2020 COVID-19, MRNA-LNP, PF, 50 M CG/0.5 [...] No 11/08/2023 Does the household have a [facility] source of income? (Household - for [...] * Telephone Encounter - Nhung Varghese - 07/21/2024 5:31 PM EST Received message from [facility] regarding patient needing an appointment and labs. Patient was notified. Successfully contacted patient and provided [facility] message. * Telephone Encounter - Felice Turk [facility] - 07/19/2024 3:59 PM ESTSigned Prescriptions: Disp Refills Furosemide 20 MG Oral Tablet (Lasix) 90 Tab*0 Sig: TAKE 1 TABLET BY MOUTH EVERY DAY IN THE MORNING Authorizing Provider: OTTONIEL MAYORGA Ordering User: FELICE TURK * Telephone Encounter - Felice Turk RP - 07/19/2024 3:53 PM EST Please contact patient so that an appointment can be scheduled with his CARDIOLOGY provider. Refillauthorized to hold patient over in the mean time. Magnesium lab ordered for next routine lab work. Last Visit: 11/10/2023 (in office), Return in about 6 months (around 05/12/2024) Next Visit: Visit date not found Thank you, Felice Turk, PharmD Clinical Pharmacist [facility] ([facility]) [phone] 07/19/2024, 3:56 PM * Telephone Encounter - Interface, [facility] - 07/19/2024 12:29 PM EST Pending Prescriptions: Disp Refills Furosemide 20 MG Oral Tablet [Pharmacy Med*90 Tab*3 Sig: TAKE 1TABLET BY MOUTH EVERY DAY IN THE MORNING documented in this encounter Plan of Treatment Upcoming Encounters Date Type Department Care Team (Late st Contact Info) Description 08/07/2024 8:30 AM EST Laboratory Laboratory, [facility] [place] [address] [place] [phone] Johny Tan [address] [place] [address] 09/19/2024 11:20 AM EST Office Visit [facility] Ctr [facility] [place] [address] [place] [phone] Miriam Rivas, DO [address] [place] [address] Scheduled Orders Name Type Priority Associated Diagnoses Orde r Schedule MAGNESIUM Lab Routine Encounter for long-term (current) use of medications Expected: 09/13/2024 (Approximate), Expires: 07/19/2025 Health Maintenance Due Date Last Done Comments [...] for long-term (current) use of other medications Essential hypertension with goal blood pressure less than 130/80 documented in this encounter Care Teams Metal Fabricator Apprentice Relationship Specialty Start Date End Date Jazmine Anguiano MD [address] [place] [address] PCP - General Internal Medicine 12/06/23 documented as of this encounter
--- OUTSIDE RECORDS SUMMARY | 2024-10-16 | External Medical Summary | Summary of Care ---
Author Name Unknown Organization [facility] Address [address] [facility] [place] [address] Phone [phone] Care Team Providers Care Slate Picker Name Role Phone Jazmine Anguiano MD Primary Care Provider Reason for Visit * Reason Comments Cough Encounter Details Date Type Department Care Team (Late st Contact Info) Description 06/27/2024 9:20 AM EST Office Visit General Internal Medicine [facility] [address] [facility] [place] [address] Dewey Sin DO [address] [facility] [place] [address] Acute laryngotracheitis* Allergies Active Allergy Reactions Criticality Noted Date [...] at bedtime. 1 Active OneTouch Verio w/Device KitIndications:Type 2 diabetes mellitus with hemoglobin A1c goal of less than 7.0% ([facility]) Use up to 4 times a day E11.9 1 Kit 1 Active Aspirin 81 MG Oral Tablet Delayed Release Take 1 Tablet by mouth in the morning. Active [place]-3 Fish Oil 1200 MG Oral Capsule Take 1 Cap by mouth daily. Active Brimonidine Tartrate-Timolol 0.2-0.5 % Ophthalmic Solution (Combigan) Instill 1 Drop into both eyes in the morning and 1 Drop before bedtime. Active OneTouch Verio In Vitro Strip (Glucose Blood)Indications:Type 2 diabetes mellitus with hemoglobin A1c goal [...] Active Amiodarone HCl 200 MG Oral Tablet (Cordarone)Indications :Coronary artery disease involving walker river coronary artery of walker river heart without angina pectoris,Essential hypertension with goal blood pressure less than 130/80 Take 1 Tablet by mouth in the morning. 90 Tablet 3 3 Active Furosemide 20 MG Oral Tablet (Lasix)Indications:Ess ential hypertension with goal blood pressure less than 130/80 TAKE 1 TABLET BY MOUTH EVERY DAY IN THE MORNING 90 Tablet 3 3 Active Metoprolol Succinate ER 100 MG Oral Tablet Extended Release 24 Hour (toPROL XL)Indications:Atrial fibrillation, unspecified type (HCC),Essential hypertension with goal blood pressure less than 130/80 TAKE 1 TABLET BY MOUTH TWICE A DAY 180 Tablet 3 4 Active Spironolactone 25 MG Oral Tablet (Aldactone)Indications :Nonischemic cardiomyopathy (HCC) Take 0.5 Tablets by mouth in the morning. 45 Tablet 3 4 Active Entresto 24-26 MG Oral Tablet (sacubitril-valsartan 24-26 mg per tab)Indications:Nonisc hemic cardiomyopathy (HCC) TAKE 1 TABLET BY MOUTH TWICE A DAY 180 Tablet 3 4 Active Trulicity 4.5 MG/0.5ML Subcutaneous Solution Pen-injector (Dulaglutide)Indicatio ns:Type 2 diabetes mellitus with hemoglobin A1c [...] Active CPAP every night at bedtime. Active Fcmpkvw-Hepnob-Otruc Pertussis 5-2.5-18.5 LF-MCG/0.5 Suspension Prefilled Syringe (Boostrix) Inject into a large muscle. 0.5 mL 4 Active metFORMIN HCl 500 MG Oral Tablet (Glucophage)Indication s:Type 2 diabetes mellitus with hemoglobin A1c goal of less than 7.0% (HCC) TAKE 1 TABLET BY MOUTH TWICE A DAY WITH BREAKFAST AND DINNER 180 Tablet 2 4 Active Omeprazole 20 MG Oral Capsule Delayed Release (PriLOSEC)Indications: Nonischemic cardiomyopathy (HCC) TAKE 1 CAPSULE BY MOUTH EVERY DAY 90 Capsule 3 4 Active Ozempic (2 MG/DOSE) 8 MG/3ML Subcutaneous Solution Pen-injector (Semaglutide (2 MG/DOSE))Indications:T ype 2 diabetes mellitus with hemoglobin A1c goal of less than 7.0% (HCC) Inject 2 mg under the skin once a week. 9 mL 1 4 Active Xarelto 20 MG Oral Tablet (Rivaroxaban)Indicatio ns:Atrial fibrillation, unspecified type (HCC) TAKE 1 TABLET BY MOUTH EVERY DAY WITH DINNER 90 Tablet 4 Active Cefuroxime Axetil 500 MG Oral Tablet (Ceftin)Indications:Ac chenega laryngotracheitis Take 1 Tablet by mouth in the morning and 1 Tablet before bedtime. 20 Tablet 4 Active documented as of this encounter (statuses [...] cardiomyopathy 10/03/2018 Coronary artery disease invo lving walker river coronary artery of walker river heart without angina pectoris 10/03/2018 documented as [...] mRNA, LNP-s, No Pre serve, 2-Dose Series (Novitas) 11/09/2020,10/19/2020 COVID-19, MRNA-LNP, PF, 50 M CG/0.5 [...] Cigarettes Q uit: 1995 Smokeless Tobacco: Never Tobacco Cessation:Counseling Given: Not Answered Alcohol Use Standard Drinks/Week Comments Yes 0 [...] on file documented as of this encounter Last Filed Vital Signs Vital Sign Reading Time Taken Comments Blood Pressure 118/78 06/27/2024 9:28 AM EST Pulse 75 06/27/2024 9:28 AM EST Temperature 35.9 C (96.6 F) 06/27/2024 9:28 AM ES T Respiratory Rate - - Oxygen Saturation 98% 06/27/2024 9:28 AM EST Inhaled Oxygen Concentration - - Weight 128.6 kg (283 lb 9.6 oz) 06/27/2024 9:28 AM EST Height 171.5 cm (5' 7.52") 06/27/2024 9:28 AM ES T Body Mass Index 43.74 06/27/2024 9:28 AM EST documented in this encounter Progress Notes * Dewey Sin, DO - 06/27/2024 9:33 AM EST Red James is a 69 year old male. Chief Complaint Patient presents with Cough HPI: Patient presents with cough, congestion. Started about 5 days ago. Cough seems to be getting worse. Initially nonproductive but now productive of yellow/green mucus. Symptoms started with nasal congestion as well as sore throat. These symptoms have improved. Has also developed some chest congestion but no shortness of breath or wheezing. Some fatigue but no obvious fever chills. No chest pain or palpitations. No increased swelling in his legs. Has tried multiple jtwa-wxh-zscagwd medications that have not helped. Took home COVID 19 test which was negative PMH: Patient Active Problem List Diagnosis Nonischemic cardiomyopathy (HCC) Coronary artery disease involving walker river coronary artery of walker river heart without angina pectoris Essential hypertension with goal blood pressure less than 130/80 Hypersomnolence disorder JOSE DE JESUS (obstructive sleep apnea) Type 2 diabetes mellitus with hemoglobin A1c goal of less than 7.0% ([facility]) Dyslipidemia, goal LDL below 70 Paroxysmal atrial fibrillation ([facility]) ICD (implantable cardioverter-defibrillator), single, in situ Primary open angle glaucoma (POAG) of both eyes, mild stage Body mass index (BMI) of 40.0 to 44.9 in adult ([facility]) Current Outpatient Medications Medication Sig Dispense Refill Cholecalciferol (VITAMIN D3) 2000 units Tablet Take 1 Tablet by mouth in the morning. Multiple Vitamins-Minerals (MULTIVITAMIN ADULT) TABS Take by mouth. Coenzyme Q10 (CO Q 10) 100 MG CAPS Take by mouth. Latanoprost 0.005 % Ophthalmic Solution (Xalatan) Instill 1 Drop into both eyes at bedtime. VeriCenterTouch Verio w/Device Kit Use up to 4 times a day E11.9 1 Kit 0 Aspirin 81 MG Oral Tablet Delayed Release Take 1 Tablet by mouth in the morning. Adena-3 Fish Oil 1200 MG Oral Capsule Take 1 Cap by mouth daily. Brimonidine Tartrate-Timolol 0.2-0.5 % Ophthalmic Solution (Combigan) Instill 1 Drop into both eyesin the morning and 1 Drop before bedtime. VeriCenterTouch Verio In Vitro Strip (Glucose Blood) Use up to 4 times a day E11.9 400 Strip 3 OneTouch Delica Lancets 33G Use as directed 4 times a day as needed for Hyperglycemia (high sugar) or Hypoglycemia (low sugar). 400 Each 3 Meclizine HCl 25 MG Oral Tablet Chewable Take 1 Tablet by mouth 3 times a day as needed for Dizziness. 30 Tablet 1 Ondansetron HCl 4 MG Oral Tablet Take 1 Tablet by mouth every 6 hours as needed for Nausea. 30 Tablet 0 Amiodarone HCl 200 MG Oral Tablet (Cordarone) Take 1 Tablet by mouth in the morning. 90 Tablet 3 Furosemide 20 MG Oral Tablet (Lasix) TAKE 1 TABLET BY MOUTH EVERY DAY IN THE MORNING 90 Tablet 3 Metoprolol Succinate ER 100 MG Oral Tablet Extended Release 24 Hour (toPROL XL) TAKE 1 TABLET BY MOUTH TWICE A DAY 180 Tablet 3 Spironolactone 25 MG Oral Tablet (Aldactone) Take 0.5 Tablets by mouth in the morning. 45 Tablet 3 Entresto 24-26 MG Oral Tablet (sacubitril-valsartan 24-26 mg per tab) TAKE 1 TABLET BY MOUTH TWICE A DAY 180 Tablet 3 Trulicity 4.5 MG/0.5ML Subcutaneous Solution Pen-injector (Dulaglutide) INJECT 4.5 MG (0.5 MLS) UNDER THE SKIN ONCE A WEEK. 6 mL 3 Repatha SureClick 140 MG/ML Subcutaneous Solution Auto-injector (evolocumab) Inject 140 mg under the skin every 14 days. Remove from refrigerator 30 minutes prior to injection. 6 mL 3 CPAP every night at bedtime. Lihryoy-Lrvlbn-Vbmbf Pertussis 5-2.5-18.5 LF-MCG/0.5 Suspension Prefilled Syringe (Boostrix) Injectinto a large muscle. 0.5 mL 0 metFORMIN HCl 500 MG Oral Tablet (Glucophage) TAKE 1 TABLET BY MOUTH TWICE A DAY WITH BREAKFAST ANDDINNER 180 Tablet 2 Omeprazole 20 MG Oral Capsule Delayed Release (PriLOSEC) TAKE 1 CAPSULE BY MOUTH EVERY DAY 90 Capsule 3 Ozempic (2 MG/DOSE) 8 MG/3ML Subcutaneous Solution Pen-injector (Semaglutide (2 MG/DOSE)) Inject 2 mg under the skin once a week. 9 mL 1 Xarelto 20 MG Oral Tablet (Rivaroxaban) TAKE 1 TABLET BY MOUTH EVERY DAY WITH DINNER 90 Tablet 0 No current facility-administered medications for this visit. Past Medical History: Diagnosis Date CAD (coronary artery disease) NICM (nonischemic cardiomyopathy) (HCC) JOSE DE JESUS (obstructive sleep apnea) Sleep apnea, obstructive Past Surgical History: Procedure Laterality Date COLONOSCOPY, DIAGNOSTIC (RECTUM) N/A 01/22/2023 diverticulosis/biopsies normal/Colonoscopy/[place] TOTAL HIP REPLACEMENT & PROSTHESIS Bilateral Review of patient's allergies indicates: Allergen Reactions Statins Joint pain Family History Problem Relation Name Age of Onset Heart disease Mother Diabetes Mother Other (cva) Mother Asthma Father Other (1/2 brother with colon cancer) Brother Family Status Relation Status Mo Fa Bro (Not Specified) Social History Socioeconomic History Marital status: Spouse name: Not on file Number of children: Not on file Years of education: Not on file Highest education level: Not on file Occupational History Not on file Tobacco Use Smoking status: Former Current packs/day: 0.00 Types: Cigarettes Quit date: 1995 Years since quittin.8 Smokeless tobacco: Never Vaping Use Vaping status: Never Used Substance and Sexual Activity Alcohol use: Yes Comment: 2-3 drinks a week Drug use: Never Sexual activity: Not on file Other Topics Concern Not on file Social History Narrative Not on file Social Determinants of Health Financial Resource Strain: Low Risk (11/08/2023) Financial Resource Strain Do you have any trouble paying for your medications, or do you think you might in the future? (Adult - for ages 18 years and over): No Does your family have trouble paying for medicine? (Household - for ages 0-17 years): Not on file Food Insecurity: No Food Insecurity (11/08/2023) Food Insecurity Do you need food for this week? (Adult - for ages 18 years and over): No Are you able to get enough food for your family? (Household - for ages 0-17 years): Not on file Does your family need food this week? (Household - for ages 0-17 years): Not on file Do you always have enough food for your family? (Household - for ages 0-17 years): Not on file Transportation Needs: No Transportation Needs (11/08/2023) Transportation Needs Do you have trouble getting a ride to medical visits or work? (Adult - for ages 18 years and over):Never True Does your family have a hard time getting a ride to doctors visits? (Household - for ages 0-17 years): Not on file Has lack of transportation kept you from medical appointments, meetings, work, or from getting things needed for daily living? Check all that apply. (Adult - for ages 18 years and over): Not on file Do you (or your family) have trouble finding or paying for a ride (transportation)? (Household - for ages 0-17 years): Not on file Social Connections: Socially Integrated (11/08/2023) Social Connections How often do you feel lonely or isolated from those around you? (Adult - for ages 18 years and over): Never Housing Stability: Low Risk (11/08/2023) Housing Stability Do you currently live in a usp or have no steady place to sleep at night? (Adult - for ages 18 years and over): No Do you think you are at risk of becoming homeless? (Adult - for ages 18 years and over): No Does your family worry about paying for your home or becoming homeless? (Household - for ages 0-17 years): Not on file Are you homeless or worried that you might be in the future? (Adult - for ages 18 years and over): Not on file Are you (or your family) homeless or worried that you might be in the future? (Household - for ages0-17 years): Not on file Review of Systems Constitutional: Negative for chills, fatigue and fever. HENT: Positive for congestion and sore throat. Negative for trouble swallowing. Eyes: Negative for photophobia and pain. Respiratory: Positive for cough. Negative for chest tightness, shortness of breath and wheezing. Cardiovascular: Negative for chest pain, palpitations and leg swelling. Gastrointestinal: Negative for abdominal distention, abdominal pain, nausea and vomiting. Genitourinary: Negative for dysuria and frequency. Musculoskeletal: Negative for back pain and neck stiffness. Skin: Negative for pallor. Neurological: Negative for dizziness, light-headedness and headaches. Psychiatric/Behavioral: Negative for sleep disturbance. The patient is not nervous/anxious. Objective BP 118/78 | Pulse 75 | Temp 35.9 C (96.6 F) | Ht 1.715 m (5' 7.52") | Wt 128.6 kg (283 lb 9.6 oz) | SpO2 98% | BMI 43.74 kg/m | BSA 2.48 m Physical Exam Constitutional: General: He is not in acute distress. Appearance: He is not ill-appearing. HENT: Head: Normocephalic and atraumatic. Right Ear: Tympanic membrane, ear canal and external ear normal. Left Ear: Tympanic membrane, ear canal and external ear normal. Nose: Congestion and rhinorrhea present. Mouth/Throat: Mouth: Mucous membranes are dry. Pharynx: Oropharynx is clear. No oropharyngeal exudate or posterior oropharyngeal erythema. Comments: Thick postnasal drip noted Eyes: General: No scleral icterus. Extraocular Movements: Extraocular movements intact. Conjunctiva/sclera: Conjunctivae normal. Pupils: Pupils are equal, round, and reactive to light. Neck: Vascular: No carotid bruit. Cardiovascular: Rate and Rhythm: Normal rate and regular rhythm. Pulses: Normal pulses. Heart sounds: Normal heart sounds. No murmur heard. No friction rub. No gallop. Pulmonary: Effort: Pulmonary effort is normal. Breath sounds: Normal breath sounds. No wheezing, rhonchi or rales. Abdominal: General: Bowel sounds are normal. There is no distension. Palpations: Abdomen is soft. There is no mass. Tenderness: There is no abdominal tenderness. There is no right CVA tenderness or left CVA tenderness. Musculoskeletal: General: No swelling or tenderness. Normal range of motion. Cervical back: Normal range of motion and neck supple. Right lower leg: No edema. Left lower leg: No edema. Skin: General: Skin is warm and dry. Coloration: Skin is not jaundiced. Findings: No rash. Neurological: General: No focal deficit present. Mental Status: He is oriented to person, place, and time. Cranial Nerves: No cranial nerve deficit. Sensory: No sensory deficit. Motor: No weakness. Psychiatric: Mood and Affect: Mood normal. Behavior: Behavior normal. ASSESSMENT/PLAN: Acute laryngotracheitis (Primary) - Cefuroxime Axetil 500 MG Oral Tablet (Ceftin); Take 1 Tablet by mouth in the morning and 1 Tabletbefore bedtime. Plan: Patient presents office with persistent symptoms of URI. No obvious evidence of bronchitis orpneumonia at this time. No evidence of hypervolemia at this time. Has not responded to multiple OTCmedications or symptomatic care Will start treatment for persistent URI symptoms with Ceftin 500 mg twice daily for 10 days. Counseled to take with food. Counseled on common side effects which to monitor Would recommend regular Mucinex 600 mg twice daily to help thin secretions. No D/DM due to cardiac issues Continue other meds/management Follow Up: Return if symptoms worsen or fail to improve, for Follow up next routine with PCP as scheduled. | For: Follow up next routine with PCP as scheduled | Check-out note: Follow yp PRN if no improvement Dewey Sin DO documented in this encounter Nursing Notes * Odilia Qureshi CMA - 06/27/2024 9:27 AM EST Patient presents today with complaint of cough x 6 days. He states that he also has a lot of sinus congestion and runny nose. He occasionally produces mucus from his chest with cough, but not always.He has tried several OTC medications that haven't helped. He denies any fever, chills or body aches. Home COVID test was negative. documented in this encounter Plan of Treatment Upcoming Encounters Date Type Department Care Team (Late st Contact Info) Description 08/07/2024 8:30 AM EST Laboratory Laboratory, [facility] [address] [facility] [place] [phone] [facility] [address] [facility] [place] [address] 09/19/2024 11:20 AM EST Office Visit [facility] Disorders Ctr [facility] [address] [place] [phone] Miriam Rivas DO [address] [place] [address] Health Maintenance Due Date Last Done Comments [...] as of this encounter Visit Diagnoses Diagnosis Acute laryngotracheitis- Primary Acute laryngotracheitis without mention of obstruction documented in this encounter Care Teams Slate Picker Relationship Specialty Start Date End Date Jazmine Anguiano MD [address] [place] [address] PCP - General Internal Medicine 12/06/23 documented as of this encounter
--- OUTSIDE RECORDS SUMMARY | 2024-10-16 | External Medical Summary | Summary of Care ---
Author Name Unknown Organization [facility] Address [address] [facility] [place] [address] Phone [phone] Care Team Providers Care Truss Builder Name Role Phone Jazmine Anguiano MD Primary Care Provider Reason for Visit * Reason Onset Date Comments Advice 06/29/2024 Cough - Med requ est Encounter Details Date Type Department Care Team (Late st Contact Info) Description 06/29/2024 Telephone General Internal Medicine [facility] [address] [place] [address] Dewey Sin, DO [address] [place] [address] Advice (Cough - Med request) Allergies Active Allergy Reactions Criticality Noted Date Comments Statins 10/15/2022 Joint pain documented as of this encounter (statuses as of 07/03/2024) Medications Cholecalciferol (VITAMIN D3) 2000 units Tablet [...] hemoglobin A1c goal of less than 7.0% ([facility]) Use up to 4 times a day E11.9 1 Kit 01/30/20 21 Active Aspirin 81 MG Oral Tablet Delayed Release Take 1 Tablet by mouth in the morning. Active [place]-3 Fish Oil 1200 MG Oral Capsule Take [...] Oral Tablet (Cordarone)Indicatio ns:Coronary artery disease involving cherokee coronary artery of cherokee heart without angina pectoris,Essential hypertension with goal [...] prior to injection. 6 mL 3 4 11:01 AM EDT 02/01/20 24 Active CPAP every night at bedtime. Active Zywiqjs-Lrzlbp-Kxdbh Pertussis 5-2.5-18.5 LF-MCG/0.5 Suspension Prefilled Syringe (Boostrix) [...] as of this encounter (statuses as of 07/03/2024) Active Problems Problem Noted Date Diagnosed Date [...] cardiomyopathy 10/03/2018 Coronary artery disease invo lving cherokee coronary artery of cherokee heart without angina pectoris 10/03/2018 documented as of this encounter (statuses as of 07/03/2024) Resolved Problems Problem Noted Date Diagnosed Date Resolved Date Obesity, morbid (more than 1 00 lbs over ideal weight or BMI > 40) 05/27/2021 12/06/2023 Body mass index (BMI) of 40. 0 to 44.9 in adult 10/30/2019 06/05/2021 Overview: Per Obesity protocol documented as of this encounter (statuses as of 07/03/2024) Immunizations Name Administration Dates Next Due COVID-19 mRNA, LNP-s, No Pre serve, 2-Dose Series (Formisimo) 11/09/2020,10/19/2020 COVID-19, MRNA-LNP, PF, 50 M CG/0.5 [...] encounter Miscellaneous Notes * Telephone Encounter - Anette Hirsch LPN - 07/03/2024 4:59 PM EST Patient aware and verbalized understanding * Telephone Encounter - Dewey Sin DO - 07/03/2024 4:36 PM EST Patient has not completed current course of Ceftin yet. Needs to complete full 10 day course. No further antibiotics at this time A lot of cough suppressants or not okay with his cardiac medicine. Would suggest he obtain Coricidin HBP from the pharmacy and take a dose prior to bed. This cough suppressant would be okay with his heart medications * Telephone Encounter - Anette Hirsch LPN - 07/03/2024 4:01 PM EST Pt calling due to having URI. He is taking Benzonatate and ABX. When he goes to bed he starts coughing and can't sleep. Pt is propping himself up but has not slept well in the last 3 nights. Pt inquiring if he could be prescribed something to control cough so he can sleep? Please advise. * Telephone Encounter - Bartolome Campos OSA - 07/03/2024 3:54 PM EST Reason for patient's call: requesting to talk with nurse regarding previous messages. Caller was transferred to Anette at the nurse line. * Telephone Encounter - Dedra Powers OSA - 07/03/2024 9:35 AM EST Patient calling back, a lot of the symptoms are resolving but he still has a cough especially when laying down. He said the medication isnt helping and would like a different antibiotic called in to [facility]. * Telephone Encounter - Lucia Bonilla OSA - 06/30/2024 1:07 PM EST Pt states the medication prescribed is not helping his cough and he is unable to sleep because as soon as he lies down, he begins to cough. Pt is asking if there is anything else that an be prescribed for his cough. Please advise. * Telephone Encounter - Christin Carrillo CCMA - 06/29/2024 9:16 AM EST Spoke with patient regarding message below. Patient understands and says thank you * Telephone Encounter - Dewey Sin DO - 06/29/2024 9:07 AM EST Patient sent Rx for Benzonatate 200mg TID as needed for cough. This would be safest medications to try for cough with his cardiac history. Would not recommend anymedication with dextromethorphan/DM * Telephone Encounter - Adrianna King LPN - 06/29/2024 8:30 AM EST Patient's cough is worsening. He is taking OTC cough medication, but it's not giving him any relief. Coughing so hard that he gets nose bleeds. Intermittently productive of white-yellow sputum. Not able to sleep well due to the cough spells being induced more when lying down. No improvement, worsening, or new symptoms at this time. He is requesting a prescription cough medicine. Pharmacy confirmed. * Telephone Encounter - Dedra Powers OSA - 06/29/2024 8:27 AM EST Reason for patient's call: respiratory infection questions and cough Caller was transferred to adrianna at the nurse line. documented in this encounter Plan of Treatment Upcoming Encounters Date Type Department Care Team (Late st Contact Info) Description 08/07/2024 8:30 AM EST Laboratory Laboratory, [facility] [address] [place] [phone] Johny Tan [address] [facility] [place] [address] 09/19/2024 11:20 AM EST Office Visit Sleep Disorders Ctr [facility] [address] [place] [phone] Miriam Rivas DO [address] [place] [address] Health Maintenance Due Date Last Done Comments [...] obstruction documented in this encounter Care Teams Truss Builder Relationship Specialty Start Date End Date Jazmine Anguiano MD [address] [place] [address] PCP - General Internal Medicine 12/06/23 documented as of this encounter
--- OUTSIDE RECORDS SUMMARY | 2024-10-16 | External Medical Summary | Summary of Care ---
Author Name Unknown Organization [facility] Address [address] [facility] [address] Phone [phone] Care Team Providers Care Timber Girdler Name Role Phone Jazmine Anguiano MD Primary Care Provider Reason for Visit * Reason Comments eRx-Medication Refill Encounter Details Date Type Department Care Team (Late st Contact Info) Description 07/30/2024 Refill Cardiology, [facility] [address] [place] [address] Ottoniel Mayorga PA-C [address] [place] [address] Coronary artery disease involving [place] coronary artery of [place] heart without angina pectoris; Essential hypertension with goal blood pressure less than 130/80 Allergies Active Allergy Reactions Criticality Noted Date Comments Statins 10/15/2022 Joint pain documented as of this encounter (statuses as of 08/01/2024) Medications Cholecalciferol (VITAMIN D3) 2000 units Tablet [...] by mouth in the morning. Active [place]-3 Fish Oil 1200 MG Oral Capsule Take [...] needed for Nausea. 30 Tablet 023 Active Metoprolol Succinate ER 100 MG [...] mL 3 07/12/20 24 2:58 PM EST Active CPAP every night at bedtime. Active Kbljirx-Joemhc-Rrhm l Pertussis 5-2.5-18.5 LF-MCG/0.5 Suspension Prefilled Syringe (Boostrix) Inject into a large muscle. 0.5 mL Active metFORMIN HCl 500 MG Oral Tablet (Glucophage)Indicat ions:Type 2 diabetes mellitus with hemoglobin A1c goal of less than 7.0% (HCC) TAKE 1 TABLET BY MOUTH TWICE A DAY WITH BREAKFAST AND DINNER 180 Tablet 2 Active Omeprazole 20 MG Oral Capsule Delayed Release (PriLOSEC)Indicatio ns:Nonischemic cardiomyopathy (HCC) TAKE 1 CAPSULE BY MOUTH EVERY DAY 90 Capsule 3 Active Ozempic (2 MG/DOSE) 8 MG/3ML Subcutaneous [...] EVERY DAY IN THE MORNING 90 Tablet Active Amiodarone HCl 200 MG Oral Tablet (Cordarone)Indicati ons:Coronary artery disease involving [place] coronary artery of [place] heart without angina pectoris,Essential hypertension with goal blood pressure less than 130/80 TAKE 1 TABLET BY MOUTH EVERY DAY IN THE MORNING 90 Tablet 3 024 Active Amiodarone HCl 200 MG Oral Tablet (Cordarone)Indicati ons:Coronary artery disease involving [place] coronary artery of [place] heart without angina pectoris,Essential hypertension with goal blood pressure less than 130/80 Take 1 Tablet by mouth in the morning. 90 Tablet 3 023 08/01 Discontinued documented as of this encounter (statuses as of 08/01/2024) Active Problems Problem Noted Date Diagnosed Date [...] cardiomyopathy 10/03/2018 Coronary artery disease invo lving [place] coronary artery of [place] heart without angina pectoris 10/03/2018 documented as of this encounter (statuses as of 08/01/2024) Resolved Problems Problem Noted Date Diagnosed Date Resolved Date Obesity, morbid (more than 1 00 lbs over ideal weight or BMI > 40) 05/27/2021 12/06/2023 Body mass index (BMI) of 40. 0 to 44.9 in adult 10/30/2019 06/05/2021 Overview: Per Obesity protocol documented as of this encounter (statuses as of 08/01/2024) Immunizations Name Administration Dates Next Due COVID-19 mRNA, LNP-s, No Pre serve, 2-Dose Series (i-marker) 11/09/2020,10/19/2020 COVID-19, MRNA-LNP, PF, 50 M CG/0.5 [...] encounter Miscellaneous Notes * Telephone Encounter - Ottoniel Mayorga PA-C - 08/01/2024 1:31 PM EST Signed Prescriptions: Disp Refills Amiodarone HCl 200 MG Oral Tablet (Cordaro*90 Tab*3 Sig: TAKE 1 TABLET BY MOUTH EVERY DAY IN THE MORNING Authorizing Provider: OTTONIEL MAYORGA * Telephone Encounter - Juli Hi [facility] - 07/31/2024 4:16 PM ESTPending Prescriptions: Disp Refills Amiodarone HCl 200 MG Oral Tablet (Cordaro*90 Tab*3 Sig: TAKE 1 TABLET BY MOUTH EVERY DAY IN THE MORNING * Telephone Encounter - Juli Hi RPh - 07/31/2024 4:14 PM EST [facility] is currently not authorized to approve refills for the pended medication(s) per refill protocol. Please approve if appropriate. Thanks, Juli Hi, PharmD Clinical Pharmacist [facility] ([facility]) 07/31/2024, 4:14 PM documented in this encounter Plan of Treatment Upcoming Encounters Date Type Department Care Team (Late st Contact Info) Description 09/19/2024 11:20 AM EST Office Visit Sleep Disorders Ctr [facility] [address] [facility] [place] [phone] Miriam Rivas DO 132 [facility] [place] [address] Health Maintenance Due Date Last Done Comments [...] as of this encounter Visit Diagnoses Diagnosis Coronary artery disease involving [place] coronary artery of [place] heart without angina pectoris Essential hypertension with goal blood pressure less than 130/80 documented in this encounter Care Teams Timber Girdler Relationship Specialty Start Date End Date Jazmine Anguiano MD [address] [place] [address] PCP - General Internal Medicine 12/06/23 documented as of this encounter
--- OUTSIDE RECORDS SUMMARY | 2024-10-16 | External Medical Summary | Summary of Care ---
Author Name Unknown Organization [facility] Address [address] [facility] [place] [address] Phone [phone] Care Team Providers Care Vacuum Closing Machine Operator Name Role Phone Jazmine Anguiano MD Primary Care Provider Encounter Details Date Type Department Care Team (Late st Contact Info) Description 09/15/2024 Result Scan Unspecified Department Eva Guevara, DO [address] [facility] [place] [address] <No scans attached> Allergies Active Allergy Reactions Criticality Noted Date Comments Statins 10/15/2022 Joint pain documented as of this encounter (statuses as of 09/16/2024) Medications Cholecalciferol (VITAMIN D3) 2000 units Tablet [...] hemoglobin A1c goal of less than 7.0% ([facility]) Use up to 4 times a day E11.9 1 Kit 01/30/20 21 Active Aspirin 81 MG Oral Tablet Delayed Release Take 1 Tablet by mouth in the morning. Active [place]-3 Fish Oil 1200 MG Oral Capsule Take [...] hemoglobin A1c goal of less than 7.0% ([facility]) INJECT 4.5 MG (0.5 MLS) UNDER THE SKIN ONCE A WEEK. 6 mL 3 12/21/19 24 Active Repatha SureClick 140 MG/ML Subcutaneous Solution Auto-injector (evolocumab) Inject 140 mg under the skin every 14 days. Remove from refrigerator 30 minutes prior to injection. 6 mL 3 4 8:53 AM EST 02/01/20 24 Active CPAP every night at bedtime. Active Scelzsf-Tqvufj-Gddwx Pertussis 5-2.5-18.5 LF-MCG/0.5 Suspension Prefilled Syringe (Boostrix) [...] Oral Tablet (Cordarone)Indicatio ns:Coronary artery disease involving [place] coronary artery of [place] heart without angina pectoris,Essential hypertension with goal blood pressure less than 130/80 TAKE 1 TABLET BY MOUTH EVERY DAY IN THE MORNING 90 Tablet 3 08/01/20 24 Active documented as of this encounter (statuses as of 09/16/2024) Active Problems Problem Noted Date Diagnosed Date [...] cardiomyopathy 10/03/2018 Coronary artery disease invo lving [place] coronary artery of [place] heart without angina pectoris 10/03/2018 documented as of this encounter (statuses as of 09/16/2024) Resolved Problems Problem Noted Date Diagnosed Date Resolved Date Obesity, morbid (more than 1 00 lbs over ideal weight or BMI > 40) 05/27/2021 12/06/2023 Body mass index (BMI) of 40. 0 to 44.9 in adult 10/30/2019 06/05/2021 Overview: Per Obesity protocol documented as of this encounter (statuses as of 09/16/2024) Immunizations Name Administration Dates Next Due COVID-19 mRNA, LNP-s, No Pre serve, 2-Dose Series (LocalMed) 11/09/2020,10/19/2020 COVID-19, MRNA-LNP, PF, 50 M CG/0.5 [...] for ages 0-17 years) Not on file 03 / Food Insecurity Answer Date Recorded Do you [...] AM EST Office Visit Sleep Disorders Ctr [facility] [address] [place] [phone] Miriam Rivas, [address] [place] [address] Health Maintenance Due Date Last Done Comments [...] Date/Time Associated Diagnosis Comments CARDIOLOGY SCANNED RESULT 09/15/2024 documented in this encounter Results * CARDIOLOGY SCANNED RESULT (09/15/2024) 09/15/2024 Eva Guevara DO OTHER Final R esult documented in this encounter Care Teams Vacuum Closing Machine Operator Relationship Specialty Start Date End Date Jazmine Anguiano MD [address] [facility] [place] [phone] PCP - General Internal Medicine 12/06/23 documented as of this encounter
--- OUTSIDE RECORDS SUMMARY | 2024-10-16 00:01 | External Medical Summary | Summary of Care ---
Author Name Unknown Organization [facility] Address [address] [place] [address] Phone [phone] Care Team Providers Care Knockup Worker Name Role Phone Jazmine Anguiano MD Primary Care Provider Reason for Visit * Reason Comments Dosage Adjustment Via Phone (anticoag Cl inic) Hyperlipidemia Encounter Details Date Type Department Care Team (Late st Contact Info) Description 05/08/2024 8:30 AM EDT Telemedicine Cardiology [facility] [place] [address] [place] [address] [place] [address], Pharmacist Cardiology [facility] [address], [place] [id number] Dyslipidemia, goal LDL below 70* Allergies Active Allergy Reactions Criticality Noted Date Comments Statins 10/15/2022 Joint pain documented as of this encounter (statuses as of 05/08/2024) Medications Medication Sig Dispensed Refills Start Date End Date Status Cholecalciferol (VITAMIN D3) 2000 units Tablet Take 1 Tablet by mouth in the morning. Active Multiple Vitamins-Minerals (MULTIVITAMIN ADULT) TABS Take by mouth. Active Coenzyme Q10 (CO Q 10) 100 MG CAPS Take by mouth. Activ e Latanoprost 0.005 % Ophthalmic Solution (Xalatan) Instill 1 Drop into both eyes at bedtime. 11/04/2020 Active OneTouch Verio w/Device KitIndications:Type 2 diabetes mellitus with hemoglobin A1c goal of less than 7.0% (HCC) Use up to 4 times a day E11.9 1 Kit 01/29/2021 Active Aspirin 81 MG Oral Tablet Delayed Release Take 1 Tablet by mouth in the morning. Active [place]-3 Fish Oil 1200 MG Oral Capsule Take [...] times a day E11.9 400 Strip 3 07/04/2022 Active OneTouch Delica Lancets 33G Use as directed 4 times a day as needed for Hyperglycemia (high sugar) or Hypoglycemia (low sugar). 400 Each 3 07/10/2022 Active Meclizine HCl 25 MG Oral Tablet Chewable Take 1 Tablet by mouth 3 times a day as needed for Dizziness. 30 Tablet 1 12/24/2022 Active Ondansetron HCl 4 MG Oral Tablet Take 1 Tablet by mouth every 6 hours as needed for Nausea. 30 Tablet 12/24/2022 Active Amiodarone HCl 200 MG Oral Tablet (Cordarone)Indicatio ns:Coronary artery disease involving [place] coronary artery of [place] heart without angina pectoris,Essential hypertension with goal blood pressure less than 130/80 Take 1 Tablet by mouth in the morning. 90 Tablet 3 05/06/2023 Active Xarelto 20 MG Oral Tablet (Rivaroxaban)Indicat ions:Atrial fibrillation, unspecified type (HCC) TAKE 1 TABLET BY MOUTH EVERY DAY WITH DINNER 90 Tablet 3 08/04/2023 Active Furosemide 20 MG Oral Tablet (Lasix)Indications:E ssential hypertension with goal blood pressure less than 130/80 TAKE 1 TABLET BY MOUTH EVERY DAY IN THE MORNING 90 Tablet 3 08/04/2023 Active Metoprolol Succinate ER 100 MG Oral Tablet Extended Release 24 Hour (toPROL XL)Indications:Atria l fibrillation, unspecified type (HCC),Essential hypertension with goal blood pressure less than 130/80 TAKE 1 TABLET BY MOUTH TWICE A DAY 180 Tablet 3 10/11/2023 Active Spironolactone 25 MG Oral Tablet (Aldactone)Indicatio ns:Nonischemic cardiomyopathy (HCC) Take 0.5 Tablets by mouth in the morning. 45 Tablet 3 11/10/2023 Active Entresto 24-26 MG Oral Tablet (sacubitril-valsarta n 24-26 mg per tab)Indications:Jazmin schemic cardiomyopathy (HCC) TAKE 1 TABLET BY MOUTH TWICE A DAY 180 Tablet 3 12/21/2023 Active Trulicity 4.5 MG/0.5ML Subcutaneous Solution Pen-injector (Dulaglutide)Indicat ions:Type 2 diabetes mellitus with hemoglobin A1c goal of less than 7.0% (HCC) INJECT 4.5 MG (0.5 MLS) UNDER THE SKIN ONCE A WEEK. 6 mL 3 12/21/2023 Active Ozempic (2 MG/DOSE) 8 MG/3ML Subcutaneous Solution Pen-injector (Semaglutide (2 MG/DOSE))Indications :Type 2 diabetes mellitus with hemoglobin A1c goal of less than 7.0% (HCC) Inject 2 mg under the skin once a week. 9 mL 1 01/05/2024 Active Repatha SureClick 140 MG/ML Subcutaneous Solution Auto-injector (evolocumab) Inject 140 mg under the skin every 14 days. Remove from refrigerator 30 minutes prior to injection. 6 mL 3 02/01/2024 Active CPAP every night at bedtime. Active Nbdzzyg-Evafne-Qjngb Pertussis 5-2.5-18.5 LF-MCG/0.5 Suspension Prefilled Syringe (Boostrix) Inject into a large muscle. 0.5 mL 02/14/2024 Active metFORMIN HCl 500 MG Oral Tablet (Glucophage)Indicati ons:Type 2 diabetes mellitus with hemoglobin A1c goal of less than 7.0% (HCC) TAKE 1 TABLET BY MOUTH TWICE A DAY WITH BREAKFAST AND DINNER 180 Tablet 2 02/21/2024 Active Omeprazole 20 MG Oral Capsule Delayed Release (PriLOSEC)Indication s:Nonischemic cardiomyopathy (HCC) TAKE 1 CAPSULE BY MOUTH EVERY DAY 90 Capsule 3 02/21/2024 Active documented as of this encounter (statuses as of 05/08/2024) Active Problems Problem Noted Date Diagnosed Date [...] cardiomyopathy 10/03/2018 Coronary artery disease invo lving [place] coronary artery of [place] heart without angina pectoris 10/03/2018 documented as of this encounter (statuses as of 05/08/2024) Resolved Problems Problem Noted Date Diagnosed Date Resolved Date Obesity, morbid (more than 1 00 lbs over ideal weight or BMI > 40) 05/27/2021 12/06/2023 Body mass index (BMI) of 40. 0 to 44.9 in adult 10/30/2019 06/05/2021 Overview: Per Obesity protocol documented as of this encounter (statuses as of 05/08/2024) Immunizations Name Administration Dates Next Due COVID-19 mRNA, LNP-s, No Pre serve, 2-Dose Series (ensembli) 11/09/2020,10/19/2020 COVID-19, MRNA-LNP, 23-24, P F, 50 MCG/0.5 mL, 12 YRS AND ABOVE, IM (MODERNA-Spikevax) [...] file Not on file Not on file Travel History Travel Start Travel End [place] 04/09/2024 04/12/2024 documented as of this encounter Patient Instructions * Attachments The following attachments cannot be sent through Care Everywhere. * EATING HEART HEALTHY-DASH DIET - PT INSTRUCTIONS (FILIPINO) - OUTPATIENT documented in this encounter Progress Notes * Rinku Liang, [facility] - 05/08/2024 8:27 AM EDT PHARMACY CHRONIC DISEASE MANAGEMENT - HYPERLIPIDEMIA HPI: Sharad James is a 69 year old year old male. Referred for HLD management by Justina Brower PA-C. Diet: cutting out red meat Exercise: Was going back to the gym however threw his back out and unable to go recently Patient Active Problem List Diagnosis Nonischemic cardiomyopathy (HCC) Coronary artery disease involving [place] coronary artery of [place] heart without angina pectoris Essential hypertension with goal blood pressure less than 130/80 Hypersomnolence disorder JOSE DE JESUS (obstructive sleep apnea) Type 2 diabetes mellitus with hemoglobin A1c goal of less than 7.0% (HCC) Dyslipidemia, goal LDL below 70 Paroxysmal atrial fibrillation (HCC) ICD (implantable cardioverter-defibrillator), single, in situ Primary open angle glaucoma (POAG) of both eyes, mild stage Body mass index (BMI) of 40.0 to 44.9 in adult (HCC) Review of patient's allergies indicates: Allergen Reactions Statins Joint pain Objective: Labs Latest Reference Range & Units 01/07/24 08:14 05/01/24 08:44 Triglycerides <=174 mg/dL 238 (H) 208 (H) Cholesterol <200 mg/dL 148 156 Non-HDL Cholesterol <=159 mg/dL 104 112 HDL Cholesterol >39 mg/dL 44 44 LDL Cholesterol <=129 mg/dL 70 LDL Cholesterol (Direct Measure) <=129 mg/dL 77 83 (H): Data is abnormally high Current Hyperlipidemia Medication(s): Fish oil 1200 mg daily Repatha 140 mg every 2 weeks-started 11/04/23- no missed doses Assessment & Plan: Reviewed repeat lipid panel with Sharad, LDL has not improved. He reports adherence to Repatha anddenies any issues. Discussed options of adding on ezetimibe or nexletol to target LDL <55 and patient is not agreeable to additional medications at this time. Discussed importance of controlling ch olesterol to prevent heart attack and stroke and pt expressed understanding. He states he will continue to work on diet and exercise. He states he is planning on switching his fish oil brand (buys OTC) and I instructed him to take 2000mg daily. Medication changes: Increase Fish oil to 2000mg daily Labs Due: Repeat lipid panel ordered for 3 months Follow up: Will discharge patient at this time and inform provider that a new referral can be entered for Cardiology [facility] services if they are required in the future. Rinku Liang, PharmD [facility] Cardiology Pharmacist Medication Therapy Disease Management 05/08/2024, 8:48 AM documented in this encounter Plan of Treatment Upcoming Encounters Date Type Department Care Team (Late st Contact Info) Description 08/07/2024 8:30 AM EST Laboratory Laboratory, [facility] [address] [place] [phone] Johny Tan Maureen [address] [place] [address] 09/19/2024 11:20 AM EST Office Visit Sleep Disorders Ctr [facility] [address] [phone] Miriam Rivas DO [address] [place] [address] Scheduled Orders Name Type Priority Associated Diagnoses Orde r Schedule LIPID PANEL WITH DIRECT LDL IF TG IS HIGH Lab Routine Dyslipidemia, goal LDL below 70 Expected: 05/08/2024, Expires: 05/08/2025 Health Maintenance Due Date Last Done Comments Hepatitis C Screening 01/07/1974 Cologuard 01/07/2001 Fecal Occult Blood Test 01/07/2001 Sigmoidoscopy 01/07/2001 Depression Screening 08/26/2023 08/26/2022 Diabetic Eye Exam 09/08/2023 09/08/2022, 09/16/2021 HbA1c 07/09/2024 01/07/2024, 09/23, 12/15/2022, Additional history [...] Discontinued 03/10/2018, 11/30/2017 AAA Screening Completed 01/15/2021 COVID-19 Vaccine Completed 04/29/2024, 02/2023, 05/04/2022, Additional history exists Influenza Vaccine (FLU shot) Completed 04/29/2024, 04/30/2023, [...] as of this encounter Visit Diagnoses Diagnosis Dyslipidemia, goal LDL below 70- Primary Other and unspecified hyperlipidemia documented in this encounter Care Teams Knockup Worker Relationship Specialty Start Date End Date Jazmine Anguiano MD [address] [place] [address] PCP - General Internal Medicine 12/06/23 documented as of this encounter
--- OUTSIDE RECORDS SUMMARY | 2024-10-16 00:01 | External Medical Summary ---
Author Name Unknown Address Unknown Organization [id number]:[facility] [place] [address] [place] [address] Laboratory Report Ordering Provider Test Date Status TRINAROBERTO 05/01/2024 08:44:58 Final Observation Date Value Abnormality Reference (Units ) Status LDL, (direct) 05/01/2024 08:44:58 83 <=129 (mg/dL) Final LDL Cholesterol Reference Ra nges (mg/dL):
<70 Target level for high risk ASCVD patient
<100 Optimal for general population
100-129 Near optimal for general population
130-159 Borderline high
160-189 High
>=190 Very high Performing Location [facility] - [address] [place] [address]
--- OUTSIDE RECORDS SUMMARY | 2024-10-16 00:01 | External Medical Summary | Summary of Care ---
Author Name Unknown Organization [facility] Address [address] [place] [address] Phone [phone] Care Team Providers Care Senior Accounting Analyst Name Role Phone Jazmine Anguiano MD Primary Care Provider Reason for Visit * Reason Comments Dosage Adjustment Via Phone (anticoag Cl inic) Hyperlipidemia Encounter Details Date Type Department Care Team (Late st Contact Info) Description 04/28/2024 2:00 PM EDT Telemedicine Cardiology [facility] [place] [address] [place] [address] [place] [address], Pharmacist Cardiology [facility] [address] [place], [place] [id number] Dyslipidemia, goal LDL below 70* Allergies Active Allergy Reactions Criticality Noted Date Comments Statins 10/15/2022 Joint pain documented as of this encounter (statuses as of 04/28/2024) Medications Medication Sig Dispensed Refills Start Date [...] Tablet by mouth in the morning. Active [place]-3 Fish Oil 1200 MG Oral Capsule Take [...] Oral Tablet (Cordarone)Indicatio ns:Coronary artery disease involving [place] coronary artery of [place] heart without angina pectoris,Essential hypertension with goal [...] Active CPAP every night at bedtime. Active Ukmqguu-Cjlpar-Sluuz Pertussis 5-2.5-18.5 LF-MCG/0.5 Suspension Prefilled Syringe (Boostrix) [...] as of this encounter (statuses as of 04/28/2024) Active Problems Problem Noted Date Diagnosed Date [...] cardiomyopathy 10/03/2018 Coronary artery disease invo lving [place] coronary artery of [place] heart without angina pectoris 10/03/2018 documented as of this encounter (statuses as of 04/28/2024) Resolved Problems Problem Noted Date Diagnosed Date Resolved Date Obesity, morbid (more than 1 00 lbs over ideal weight or BMI > 40) 05/27/2021 12/06/2023 Body mass index (BMI) of 40. 0 to 44.9 in adult 10/30/2019 06/05/2021 Overview: Per Obesity protocol documented as of this encounter (statuses as of 04/28/2024) Immunizations Name Administration Dates Next Due COVID-19 mRNA, LNP-s, No Pre serve, 2-Dose Series ([employer]) 11/09/2020,10/19/2020 COVID-19, MRNA-LNP, 23-24, P F, 51 [...] file Travel History Travel Start Travel End [place] 04/09/2024 04/12/2024 documented as of this encounter Progress Notes * Amber Chi, [facility] - 04/28/2024 2:09 PM EDT After connecting to the patient via telephone, the patient was identified by name and date of . Patient was then informed that this was a telephone call only visit. The patient agreed to participate. Visit Disposition: Routine follow-up Total call duration was 20 minutes. PHARMACY CHRONIC DISEASE MANAGEMENT - HYPERLIPIDEMIA HPI: Sharad James is a 68 year old year old male. Referred for HLD management by Justina Brower. Previous medication use: statins History of statin intolerance: yes Statin names, doses, frequency tried and outcome: Rosuvastatin 5 mg --myalgia (stopped 3 weeks) Atorvastatin 40 mg daily Pravastatin 20 mg daily Any contraindications to HLD medications: none Current medications which can be contributing: beta blockers Family history of HLD: yes (mother heart disease) Current genetic disorder diagnosis: no Smoking history: Denies Alcohol use: 1-2 drinks per weeks Diagnosis of diabetes: yes Clinical ASCVD/Risk Score: The ASCVD Risk score (Chelsey LIU, et al., 2019) failed to calculate for the following reasons: The patient has a prior AL or stroke diagnosis Diet review: Cooking at home more than eating out Using calorie tracker Doesn't eat a lot red meat 2% glass per day (8 oz) No deep frying at home Uses air fryer, oven Exercise review: doing some exercises at home 2-3 days per week Patient Active Problem List Diagnosis Nonischemic cardiomyopathy (HCC) Coronary artery disease involving [place] coronary artery of [place] heart without angina pectoris Essential hypertension with goal blood pressure less than 130/80 Hypersomnolence disorder JOSE DE JESUS (obstructive sleep apnea) Type 2 diabetes mellitus with hemoglobin A1c goal of less than 7.0% ([facility]) Dyslipidemia, goal LDL below 70 Paroxysmal atrial fibrillation ([facility]) ICD (implantable cardioverter-defibrillator), single, in situ Primary open angle glaucoma (POAG) of both eyes, mild stage Body mass index (BMI) of 40.0 to 44.9 in adult ([facility]) Review of patient's allergies indicates: Allergen Reactions Statins Joint pain Objective: Lab Results Component Value Date/Time LDL (CALCULATED)-OUTSIDE LAB 125 (A) 07/21/2018 12:00 AM LDL CHOLESTEROL (CALCULATED) - [facility] 187 (H) 10/11/2023 12:24 PM LDL CHOLESTEROL (CALCULATED) - [facility] 217 (H) 08/26/2022 12:19 PM LDL CHOLESTEROL (CALCULATED) - [facility] 104 05/12/2021 12:09 PM LDL CHOLESTEROL (CALCULATED) - [facility] 85 10/03/2018 01:46 PM LDL CHOLESTEROL (DIRECT MEASURE) - [facility] 77 01/07/2024 08:14 AM LDL CHOLESTEROL (DIRECT MEASURE) - [facility] 108 02/01/2023 08:31 AM Lab Results Component Value Date/Time AST - [facility] 18 10/11/2023 12:24 PM AST - [facility] 17 02/01/2023 08:31 AM AST - [facility] 19 08/26/2022 12:19 PM AST - [facility] 17 03/29/2019 10:03 AM Lab Results Component Value Date/Time ALT - [facility] 17 10/11/2023 12:24 PM ALT - [facility] 18 02/01/2023 08:31 AM ALT - [facility] 27 08/26/2022 12:19 PM ALT - [facility] 22 03/29/2019 10:03 AM No results found for: "CK" No results found for: "25-HYDROXY" Lab Results Component Value Date/Time TSH - [facility] 1.91 10/11/2023 12:24 PM Hemoglobin AIC Results: Lab Results Component Value Date/Time HEMOGLOBIN A1C - [facility] 7.4 (H) 01/07/2024 08:14 AM HEMOGLOBIN A1C - [facility] 7.8 (H) 10/11/2023 12:24 PM HEMOGLOBIN A1C - [facility] 7.2 (H) 12/15/2022 08:47 AM HEMOGLOBIN A1C - [facility] 8.1 (H) 10/17/2019 10:40 AM HEMOGLOBIN A1C - [facility] 7.8 (H) 03/29/2019 10:03 AM Current Hyperlipidemia Medication(s): Entresto 24-26 mg BID Amiodarone 200 mg daily Aldactone 25 mg tablet-Take 12.5 mg daily Xarelto 20 mg aily Lasix 20 mg daily Metoprolol Er 100 mg BID Fish oil 1200 mg daily Assessment & Plan: Uncontrolled HLD -Target LDL <55 - lipid panel needed - consider dc fish oil when labs return Sharad is tolerating repatha without issue. He has been on medication for 3 months now. He did not realize he needed labs prior to this appt. Made lab appt for him 05/01/24. He will return to [facility] week after for lab review. Patient agrees to plan. 2. CAD Minor coronary artery disease by cardiac catheterization 2012 3. Atrial fibrillation 4. HFrEF -ICD 5. Type 2 DM -Target HbA1c <7% Medication changes: Continue: Repatha 140 mg every 2 weeks Labs Due: Lipid panel now Follow up: 05/08/2024 Jasmin, Pharmacist Cardiology [facility] Amber Chi, PharmD, [facility] Cardiology Pharmacist Medication Therapy Disease Management 04/28/2024, 2:12 PM documented in this encounter Plan of Treatment Upcoming Encounters Date Type Department Care Team (Late st Contact Info) Description 05/01/2024 8:30 AM EDT Laboratory Laboratory, [facility] [address] [facility] [place] [phone] Johny Tans [address] [facility] [place] [address] 05/08/2024 8:30 AM EDT Telemedicine Cardiology [facility], [address] [address] Jasmin, Pharmacist Cardiology [place] [address] [place] [address] 09/19/2024 11:20 AM EST Office Visit [facility] Disorders Ctr [facility] [address] [place] [phone] Miriam Rivas, [address] [place] [address] Health Maintenance Due Date Last Done Comments Hepatitis C Screening 01/07/1974 Cologuard 01/07/2001 Fecal Occult Blood Test 01/07/2001 Sigmoidoscopy 01/07/2001 Depression Screening 08/26/2023 08/26/2022 Diabetic Eye Exam 09/08/2023 09/08/2022, 09/16/2021 COVID-19 Vaccine ( season) 2024 05/29/2023, 05/04/2022, 11/09/2020, Additional history exists Influenza Vaccine (FLU shot) (#1) 2024 04/30/2023, 05/04/2022, 04/11/2021, Additional history exists HbA1c 07/09/2024 01/07/2024, 09/23, [...] Discontinued 03/10/2018, 11/30/2017 AAA Screening Completed 01/15/2021 HPV (Gardasil) Vaccine Aged Out No lo [...] hyperlipidemia documented in this encounter Care Teams Senior Accounting Analyst Relationship Specialty Start Date End Date Jazmine Anguiano MD [address] [place] [address] PCP - General Internal Medicine 12/06/23 documented as of this encounter
--- OUTSIDE RECORDS SUMMARY | 2024-10-16 00:01 | External Medical Summary ---
Author Name Unknown Address Unknown Organization K01:[facility] - [address] [facility] [place] [address] Laboratory Report Ordering Provider Test Date Status ROBERTO MENA 05/01/2024 08:44:58 Final Observation Date Value Abnormality Reference (Units ) Status Triglyceride 05/01/2024 08:44:58 208 Above high normal <=174 (mg/dL) Final Triglyceride Reference Range s (mg/dL):
<150 Acceptable
150-174 Borderline high
175-499 High
>=500 Very high Cholesterol 05/01/2024 08:44:58 156 <200 (mg /dL) Final Total Cholesterol Reference Ranges (mg/dL):
<200 Desirable
200-239 Borderline high
>=240 High HDL 05/01/2024 08:44:58 44 >39 (mg/dL ) Final HDL Cholesterol Reference Ra nges (mg/dL):
>=60 High (Desirable)
<50 Low (Undesirable) For Females
<40 Low (Undesirable) For Males NON-HDL CHOLESTEROL 05/01/2024 08:44:58 112 <=159 (mg/dL) Final Non-HDL Cholesterol Referenc e Range (mg/dL):
<100 Target level for high risk ASCVD patient
<130 Optimal for general population
130-159 Near optimal for general population
160-189 Borderline High
190-219 High
>=220 Very High LDL, (calculated) 05/01/2024 08:44:58 70 <= 129 (mg/dL) Final LDL Cholesterol Reference Ra nges (mg/dL):
<70 Target level for high risk ASCVD patient
<100 Optimal for general population
100-129 Near optimal for general population
130-159 Borderline high
160-189 High
>=190 Very high Performing Location [facility] - [address] [facility] [address]
--- OUTSIDE RECORDS SUMMARY | 2024-10-16 00:01 | External Medical Summary | Summary of Care ---
Author Name Unknown Organization [facility] Address [address] [place] [address] Phone [phone] Care Team Providers Care Senior Pl Sql Developer Name Role Phone Jazmine Anguiano MD Primary Care Provider Reason for Visit * Reason Comments Dosage Adjustment Via Phone (anticoag Cl inic) Hyperlipidemia Encounter Details Date Type Department Care Team (Late st Contact Info) Description 05/08/2024 8:30 AM EDT Telemedicine Cardiology [facility], [place] [address] [place] [address] [place] [address], Pharmacist Cardiology [facility] [address] [place], [place] [id number] Dyslipidemia, goal LDL below 70* Allergies Active [...] Tablet by mouth in the morning. Active [place]-3 Fish Oil 1200 MG Oral Capsule Take [...] Oral Tablet (Cordarone)Indicatio ns:Coronary artery disease involving [place] coronary artery of [place] heart without angina pectoris,Essential hypertension with goal [...] Active CPAP every night at bedtime. Active Ydobjxa-Jocgfp-Drtem Pertussis 5-2.5-18.5 LF-MCG/0.5 Suspension Prefilled Syringe (Boostrix) [...] cardiomyopathy 10/03/2018 Coronary artery disease invo lving [place] coronary artery of [place] heart without angina pectoris 10/03/2018 documented as [...] mRNA, LNP-s, No Pre serve, 2-Dose Series ([employer]) 11/09/2020,10/19/2020 COVID-19, MRNA-LNP, 23-24, P F, 51 [...] file Travel History Travel Start Travel End [place] 04/09/2024 04/12/2024 documented as of this encounter Patient Instructions * Attachments The following attachments cannot be sent through Care Everywhere. * EATING HEART HEALTHY-DASH DIET - PT INSTRUCTIONS (PUERTO RICAN) - OUTPATIENT documented in this encounter Progress Notes * Rinku Liang, [facility] - 05/08/2024 8:27 AM EDT PHARMACY CHRONIC [...] Nonischemic cardiomyopathy (HCC) Coronary artery disease involving [place] coronary artery of [place] heart without angina pectoris Essential hypertension with [...] new referral can be entered for Cardiology [facility] services if they are required in the future. Rinku Liang, PharmD [facility] Cardiology Pharmacist Medication Therapy Disease Management 05/08/2024, 8:48 AM documented in this encounter Plan of Treatment Upcoming Encounters Date Type Department Care Team (Late st Contact Info) Description 08/07/2024 8:30 AM EST Laboratory Laboratory, [facility] [address] [place] [phone] Johny Tan Maureen [address] [place] [address] 09/19/2024 11:20 AM EST Office Visit Sleep Disorders Ctr [facility] [address] [place] [phone] Miriam Rivas DO [address] [place] [address] Scheduled Orders Name Type Priority Associated Diagnoses [...] documented in this encounter Care Teams Senior Pl Sql Developer Relationship Specialty Start Date End Date Jazmine Anguiano MD [address] [place] [address] PCP - General Internal Medicine 12/06/23 documented as of this encounter
--- OUTSIDE RECORDS SUMMARY | 2024-10-16 00:01 | External Medical Summary | Summary of Care ---
Author Name Unknown Organization [facility] Address [address] [facility] [place] [address] Phone [phone] Care Team Providers Care Rail Car Painter/Sandblaster Name Role Phone Jazmine Anguiano MD Primary Care Provider Reason for Visit * Reason Comments Outpatient Testing Encounter Details Date Type Department Care Team (Late st Contact Info) Description 05/01/2024 8:30 AM EDT Laboratory Laboratory, [facility] [address] [place] [id number] [facility] [address] [place] [address] Dyslipidemia, goal LDL below 70 Allergies Active Allergy Reactions Criticality Noted Date Comments Statins 10/15/2022 Joint pain documented as of this encounter (statuses as of 05/01/2024) Medications Medication Sig Dispensed Refills Start Date [...] Tablet by mouth in the morning. Active [place]-3 Fish Oil 1200 MG Oral Capsule Take [...] Oral Tablet (Cordarone)Indicatio ns:Coronary artery disease involving [place] coronary artery of [place] heart without angina pectoris,Essential hypertension with goal [...] Active CPAP every night at bedtime. Active Nrktobn-Nhohqv-Mverz Pertussis 5-2.5-18.5 LF-MCG/0.5 Suspension Prefilled Syringe (Boostrix) [...] as of this encounter (statuses as of 05/01/2024) Active Problems Problem Noted Date Diagnosed Date [...] cardiomyopathy 10/03/2018 Coronary artery disease invo lving [place] coronary artery of [place] heart without angina pectoris 10/03/2018 documented as of this encounter (statuses as of 05/01/2024) Resolved Problems Problem Noted Date Diagnosed Date Resolved Date Obesity, morbid (more than 1 00 lbs over ideal weight or BMI > 40) 05/27/2021 12/06/2023 Body mass index (BMI) of 40. 0 to 44.9 in adult 10/30/2019 06/05/2021 Overview: Per Obesity protocol documented as of this encounter (statuses as of 05/01/2024) Immunizations Name Administration Dates Next Due COVID-19 mRNA, LNP-s, No Pre serve, 2-Dose Series ([employer]) 11/09/2020,10/19/2020 COVID-19, MRNA-LNP, 23-24, P F, 51 [...] file Travel History Travel Start Travel End [place] 04/09/2024 04/12/2024 documented as of this encounter Plan of Treatment Upcoming Encounters Date Type Department Care Team (Late st Contact Info) Description 05/08/2024 8:30 AM EDT Telemedicine [facility] [place] [address] [place] [address] [place] [address], Pharmacist Cardiology [facility] [address] [place] [address] 09/19/2024 11:20 AM EST Office Visit Sleep Disorders Ctr [facility] [address] [place] [phone] Miriam Rivas DO [address] [facility] [place] [address] Pending Results Name Type Priority Associated Diagnoses Date /Time LIPID PANEL WITH DIRECT LDL IF TG IS HIGH Lab Routine Dyslipidemia, goal LDL below 70 05/01/2024 8:44 AM EDT Health Maintenance Due Date Last Done Comments [...] Visit Diagnoses Diagnosis Dyslipidemia, goal LDL below 70 Other and unspecified hyperlipidemia documented in this encounter Care Teams Rail Car Painter/Sandblaster Relationship Specialty Start Date End Date Jazmine Anguiano MD [address] [place] [address] PCP - General Internal Medicine 12/06/23 documented as of this encounter
[2024-10-16 00:42] LABS: Basophils # (auto) 0.05 K/uL (0.00-0.20); Basophils % (auto) 0.5 %; Eosinophils # (auto) 0.07 K/uL (0.00-0.50); Eosinophils % (auto) 0.7 %; Hematocrit (blood only) 39.8 % (42.0-52.0); Hemoglobin 12.2 g/dl (14.0-18.0); Immature Granulocytes # (auto) 0.03 K/uL (0.01-0.20); Immature Granulocytes % (auto) 0.3 %; Lymphocytes # (auto) 0.93 K/uL (1.20-3.40); Lymphocytes % (auto) 9.4 %; Mean Corpuscular Hemoglobin 23.3 pg (25.0-34.0); Mean Corpuscular Hgb Conc 30.7 g/dL (32.0-36.0); Mean Corpuscular Volume 76.1 fL (80.0-100.0); Mean Platelet Volume 9.7 fL (9.4-12.4); Monocytes # (auto) 0.97 K/uL (0.11-0.59); Monocytes % (auto) 9.8 %; Neutrophils # (auto) 7.86 K/uL (1.40-6.50); Neutrophils % (auto) 79.3 %; Platelet Count 299 K/uL (130-400); RDW Coefficient of Variation 18.5 % (11.5-14.5); RDW Standard Deviation 48.9 fL (36.4-46.3); Red Blood Count 5.23 M/uL (4.70-6.10); White Blood Count 9.91 K/ul (4.8-10.8)
--- NOTE | 2024-10-16 00:44 | Emergency Department Note ---
Impression & Plan Atrial fibrillation with rapid ventricular response, Elevated troponin, Elevated brain natriuretic peptide (BNP) level, Chronic systolic congestive heart failure, NYHA class 2 ED Provider Note ED Provider Note NAME: ERIN BLAS AGE:69 SEX: Male : 1955 ARRIVES VIA: Private vehicle INFORMANT: Patient ED PROVIDER(s): Amie Lozano DO CHIEF COMPLAINT: Tachycardia HPI: This is a 69-year-old male presents emergency department due to concern for tachycardia. Patient states he was recently ill over the course of the last week with influenza as his recently was sick with this as well. He did see his PCP and was given an albuterol inhaler, Tessalon Perles, and instructed to get Mucinex additionally to help with his symptoms. He was having congestion, cough, fatigue. He states he had some mild diarrhea and a few episodes of posttussive emesis. He states this evening he coughed to the point of having a bout of emesis, and felt he looked "clammy". She asked him to check his oxygen level and a home pulse oximeter. He states his oxygen was fine but he noticed that his heart rate would vary anywhere from the 60s up to the 130s. Patient does have a known history of atrial fibrillation. He denied any accompanying chest pain, palpitations, or sense of being short of breath. Patient does take Xarelto daily due to his history of A-fib. He does follow with Dr. Wild and Justina Brower for cardiology. PAST MEDICAL HISTORY:See Below PAST SURGICAL HISTORY:See Below FAMILY HISTORY:See Below SOCIAL HISTORY:See Below HOME MEDICATIONS:See Below ALLERGIES:See Below VITALS:See Below PHYSICAL EXAMINATION: GENERAL: alert, well appearing, well nourished, no distress, non-toxic EYE EXAM: normal conjunctiva, PERRL and EOM's grossly intact OROPHARYNX: no exudate, no erythema, lips, buccal mucosa, and tongue normal and mucous membranes are moist NECK: supple, no nuchal rigidity, no adenopathy, non-tender LUNGS: Clear to auscultation. Normal chest wall mechanics, no w/r/r HEART: no murmurs, S1 normal and S2 normal, pacer/AICD noted left anterior superior chest wall ABDOMEN: abdomen soft, non-tender, normo-active bowel sounds, no masses, no rebound or guarding. SKIN: no rashes, petechiae, orbruising UPPER EXTREMITIES: upper extremities are grossly normal. FROM, nml pulses b/l. LOWER EXTREMITIES: 1+ b/l pitting edema. FROM, nml pulses b/l. NEURO EXAM: Normal sensorium, cranial nerves II-XII grossly intact, normal speech, no facial droop,nogross weakness of arms, no gross weakness of legs. Gross sensation intact. No ataxia. Vital Signs: reviewed and remarkable Differential Diagnosis: Dysrhythmia, ACS, pulmonary edema, pericardial effusion, pleural effusion, electrolyte abnormality, dehydration, medication ADR, viral syndrome, as well as others were considered MEDICAL DECISION MAKING: This is a 69-year-old male presents emergency department due to concern for elevated and variable heart rate at home. Patient did recently have a flulike illness similar to his . Patient does have significant prior cardiac history as well as a history of atrial fibrillation. He also has a pacer/AICD. Labs drawn and sent, IV established, EKG and chest x-ray performed at bedside and interpreted by me and patient monitored on telemetry. Patient's heart rate was improved compared to what he reported he saw at home however he still continued to have an elevated rate of atrial fibrillation in the low 100s to 1 teens. He denied any shortness of breath and was not hypoxic here. Patient was noted to have lower extremity edema. Patient noted to have elevated troponin and elevated BNP on labs. I did review prior cardiac history and patient with a known significantly diminished ejection fraction and nonischemic cardiomyopathy. Patient does have a history of both atrial fibrillation as well as ventricular tachycardia. He denied feeling any defibrillation's. We did interrogate the pacemaker additionally. Patient given additional dose of furosemide here. I suspect his persistent elevated heart rate secondary to increased stress across his cardiopulmonary system from the recent acute viral illness. Due to concern for persistent tachycardia and abnormal labs, we discussed additional inpatient management. He verbalized understanding. Case discussed with the hospitalist team additionally for further evaluation and management. Consultation(s): 021: Discussed with Dr. Isidro, [facility] hospitalist team, for additional evaluation and management. ER Treatment Provided: See below Diagnostics Interpreted By Me: -ECG: Atrial fibrillation at 117, leftward axis, interventricular conduction delay, nonspecific ST/T wave changes -Cardiac Monitoring: An order was placed for continuous cardiac monitoring. The monitor shows a rate of 108 with A-fib rhythm. -Laboratory studies: As stated above and show below. -Imaging studies: cxr: Mild cardiomegaly noted, small left pleural effusion, no focal consolidation, no increased pulmonary edema Triage Nursing Note Reviewed Prior/Outside Records Reviewed -cardiology office note from 11/10/2023 Past Med/Surg History Problem List (Updated 10/16/24 @ 02:11 by Amie Lozano DO) Elevated brain natriuretic peptide (BNP) level (Acute) Elevated troponin (Acute) Atrial fibrillation with rapid ventricular response (Acute) Encounter for pre-operative examination Atrial fibrillation with RVR (Acute) Cardiac defibrillator in place (Chronic) Morbid obesity (Chronic) BMI 41.8 Chronic systolic congestive heart failure, NYHA class 2 (Chronic) Hyperlipidemia (Chronic) CAD (coronary artery disease) (Chronic) HTN (hypertension) (Chronic) Medical History Osteoarthritis Diabetes mellitus, type 2 On anticoagulant therapy xarelto daily Glaucoma SARS-CoV-2 positive hx of x2--04/2021 and 08/2021--no symptoms now Atrial fibrillation on xarelton/metoprolol--follows with Dr. Aldridge Acute HFrEF (heart failure with reduced ejection fraction) SOB (shortness of breath) Cardiac defibrillator in place Morbid obesity BMI 41.8 Chronic systolic congestive heart failure, NYHA class 2 JOSE DE JESUS (obstructive sleep apnea) cpap Hyperlipidemia HTN (hypertension) CAD (coronary artery disease) NICM (nonischemic cardiomyopathy) Surgical History Status post hardware removal History of open reduction and internal fixation (ORIF) procedure left ankle fx repair--hardware removed History of removal of cyst off knuckle History of prostate biopsy benign History of colonoscopy History of wisdom tooth extraction History of cardiac cath 2012 @ [place], [place]--no stents S/P ICD (internal cardiac defibrillator) procedure placed 04/26/19 Dr. Guevara @ [facility]--[facility]tr[facility] History of total right hip arthroplasty History of total left hip arthroplasty Family History Mother Stroke Father Coronary heart disease Other No family history of adverse response to anesthesia Social History Smoking Status: Former smoker Second Hand Exposure: No; Do You Dip or Chew Tobacco: No; Hx Alcohol Use: No Hx Substance Use: No Preferred Language: Yoruba Communication Ability: Effective Automotive Service Consultant Required: No Beliefs That Will Affect Care: None Current Living Situation: Spouse Feels Safe at Home: Yes Assistive Devices: Glasses Allergies Allergies Allergy/AdvReac Type Severity Reaction Status Date / Time [id number] Reductase AdvReac Intermediate Joint Pain Verified 09/14/23 01:27 Inhibitor Home Meds Home Medications Medication Instructions Recorded Confirmed aspirin 81 mg tablet,delayed 81 mg PO QAM 01/05/21 10/16/24 release coQ10 (ubiquinol) 100 mg capsule 100 mg PO QAM 01/05/21 10/16/24 multivitamin 1 tab PO QAM 01/05/21 10/16/24 omega [id number]-fish oil 1,200 mg 1 cap PO HS 01/05/21 10/16/24 (144 mg-216 mg) capsule (Fish Oil) cholecalciferol (vitamin D3) 50 50 mcg PO QAM 05/15/21 10/16/24 mcg (2,000 unit) tablet (Vitamin D3) latanoprost 0.005 % eye drops 1 drp OPB HS 05/15/21 10/16/24 metformin 500 mg tablet 500 mg PO BIDM 05/15/21 10/16/24 metoprolol succinate 100 mg 100 mg PO BID 05/15/21 10/16/24 tablet,extended release 24 hr omeprazole 20 mg capsule,delayed 20 mg PO QAM 05/15/21 10/16/24 release amiodarone 200 mg tablet 200 mg PO QAM 12/22/22 10/16/24 brimonidine 0.2 %-timolol 0.5 % 1 drp OPR BID 12/22/22 10/16/24 eye drops rivaroxaban 20 mg tablet (Xarelto) 20 mg PO QDD 12/22/22 10/16/24 furosemide 20 mg tablet 20 mg PO QAM 01/15/23 10/16/24 dulaglutide 4.5 mg/0.5 mL 4.5 mg subcut WK 09/14/23 10/16/24 subcutaneous pen injector (Trulicity) sacubitril 24 mg-valsartan 26 mg 1 tab PO BID 09/14/23 10/16/24 tablet (Entresto) spironolactone 25 mg tablet 12.5 mg PO DAILY 09/14/23 10/16/24 benzonatate 100 mg capsule 100 mg PO TID PRN Cough 10/16/24 10/16/24 evolocumab 140 mg/mL subcutaneous 140 mg subcut .EVERY 14 DAYS 10/16/24 10/16/24 pen injector (Repatha SureClick) semaglutide 2 mg/dose (8 mg/3 mL) 2 mg subcut WK 10/16/24 10/16/24 subcutaneous pen injector (Ozempic) Results & Data (ED) Vital Signs Vital Signs - 24 hr 10/16/24 00:04 10/16/24 00:26 10/16/24 00:28 Temperature 36.6 C Temperature Source Oral Pulse Rate 120 H Pulse Rate [Right Finger] Pulse Rhythm [Right Finger] Pulse Strength [Right Finger] Respiratory Rate 22 Respiratory Effort / Characteristics Non-Labored Spontaneous Respiratory Depth Normal Respiratory Pattern Regular Blood Pressure 133/78 Blood Pressure [Right Arm] Blood Pressure Mean 96 Blood Pressure Mean [Right Arm] Blood Pressure Position Sitting Blood Pressure Position [Right Arm] Pulse Oximetry 95 96 94 Oxygen Delivery Method Room Air Room Air Room Air Sepsis Recent Fever Within 48 Hours No Sepsis New/Unexplained Change in Mental Status N/A Sepsis Action Taken by Nursing Physician Notified 10/16/24 00:31 10/16/24 00:40 10/16/24 02:10 Temperature Temperature Source Pulse Rate 102 H Pulse Rate [Right Finger] 116 H 107 H Pulse Rhythm [Right Finger] Regular Regular Pulse Strength [Right Finger] Normal Normal Respiratory Rate 25 H 19 Respiratory Effort / Characteristics Non-Labored Non-Labored Respiratory Depth Normal Normal Respiratory Pattern Regular Regular Blood Pressure Blood Pressure [Right Arm] 127/93 Blood Pressure Mean Blood Pressure Mean [Right Arm] 104 Blood Pressure Position Blood Pressure Position [Right Arm] Lying Pulse Oximetry 95 96 Oxygen Delivery Method Room Air Room Air Sepsis Recent Fever Within 48 Hours Sepsis New/Unexplained Change in Mental Status Sepsis Action Taken by Nursing 10/16/24 03:00 10/16/24 03:35 10/16/24 03:39 Temperature Temperature Source Pulse Rate 103 H 87 Pulse Rate [Right Finger] 114 H Pulse Rhythm [Right Finger] Pulse Strength [Right Finger] Respiratory Rate 23 20 21 Respiratory Effort / Characteristics Non-Labored Respiratory Depth Normal Respiratory Pattern Regular Blood Pressure 99/82 L 127/86 Blood Pressure [Right Arm] 127/86 Blood Pressure Mean 87 99 Blood Pressure Mean [Right Arm] 99 Blood Pressure Position Blood Pressure Position [Right Arm] Pulse Oximetry 95 95 96 Oxygen Delivery Method Room Air Room Air Room Air Sepsis Recent Fever Within 48 Hours Sepsis New/Unexplained Change in Mental Status Sepsis Action Taken by Nursing 10/16/24 03:59 10/16/24 04:01 10/16/24 04:31 Temperature Temperature Source Pulse Rate 103 H 95 H 91 H Pulse Rate [Right Finger] Pulse Rhythm [Right Finger] Pulse Strength [Right Finger] Respiratory Rate 20 Respiratory Effort / Characteristics Respiratory Depth Respiratory Pattern Blood Pressure 129/72 Blood Pressure [Right Arm] Blood Pressure Mean 112 Blood Pressure Mean [Right Arm] Blood Pressure Position Blood Pressure Position [Right Arm] Pulse Oximetry 97 Oxygen Delivery Method Room Air Sepsis Recent Fever Within 48 Hours Sepsis New/Unexplained Change in Mental Status Sepsis Action Taken by Nursing 10/16/24 05:09 Temperature Temperature Source Pulse Rate 97 H Pulse Rate [Right Finger] Pulse Rhythm [Right Finger] Pulse Strength [Right Finger] Respiratory Rate 20 Respiratory Effort / Characteristics Respiratory Depth Respiratory Pattern Blood Pressure Blood Pressure [Right Arm] Blood Pressure Mean Blood Pressure Mean [Right Arm] Blood Pressure Position Blood Pressure Position [Right Arm] Pulse Oximetry Oxygen Delivery Method Sepsis Recent Fever Within 48 Hours Sepsis New/Unexplained Change in Mental Status Sepsis Action Taken by Nursing Laboratory Data 10/16/24 00:26 10/16/24 00:26 Lab Results 10/16/24 10/16/24 Range/Units 00:26 02:30 WBC 9.91 (4.8-10.8) K/ul RBC 5.23 (4.70-6.10) M/uL Hgb 12.2 L (14.0-18.0) g/dl Hct 39.8 L (42.0-52.0) % MCV 76.1 L (80.0-100.0) fL MCH 23.3 L (25.0-34.0) pg MCHC 30.7 L (32.0-36.0) g/dL RDW Std Deviation 48.9 H (36.4-46.3) fL RDW Coeff of Jose 18.5 H (11.5-14.5) % Plt Count 299 (130-400) K/uL MPV 9.7 (9.4-12.4) fL Immature Gran % (Auto) 0.3 % Neut % (Auto) 79.3 % Lymph % (Auto) 9.4 % [place] % (Auto) 9.8 % Eos % (Auto) 0.7 % Baso % (Auto) 0.5 % Neut # (Auto) 7.86 H (1.40-6.50) K/uL Lymph # (Auto) 0.93 L (1.20-3.40) K/uL [place] # (Auto) 0.97 H (0.11-0.59) K/uL Eos # (Auto) 0.07 (0.00-0.50) K/uL Baso # (Auto) 0.05 (0.00-0.20) K/uL Immature Gran # (Auto) 0.03 (0.01-0.20) K/uL PT 11.4 (9.0-12.0) Seconds INR 1.1 (0.9-1.1) APTT 27 (21-31) Seconds PTT Ratio 1.0 Sodium 137 (136-145) mmol/L Potassium 4.8 (3.5-5.1) mmol/L Chloride 104 (98-107) mmol/L Carbon Dioxide 25 (21-32) mmol/L Anion Gap 8 (3-11) BUN 24 H (6-23) mg/dl Creatinine 1.43 H (0.6-1.4) mg/dl Est Cr Clr Drug Dosing 63.8 ml/min eGFR 53.37 BUN/Creatinine Ratio 16.8 (10-20) Glucose 206 H (70-99(Fasting)) mg/dl Calcium 9.9 (8.6-10.3) mg/dl Magnesium 1.8 (1.7-2.4) mg/dl Total Bilirubin 0.5 (0.2-1.0) mg/dl AST 21 (13-39) U/L ALT 20 (7-52) U/L Alkaline Phosphatase 70 (34-104) U/L Troponin I High Sens 40.6 H 39.8 H (0-20) pg/ml B-Natriuretic Peptide 1219 H (0-100) pg/ml Total Protein 7.3 (6.0-8.3) gm/dl Albumin 3.8 (3.4-5.0) gm/dl Globulin 3.5 (2.5-4.0) gm/dl Albumin/Globulin Ratio 1.1 (0.9-2) TSH < 0.010 L (0.300-4.500) uIu/ml Free T4 2.95 H (0.61-1.60) ng/dl Administered Medications Discontinued Medications Furosemide (Furosemide Inj 20 Mg/2 Ml Vial) 20 mg IV ONE ONE Stop: 10/16/24 01:16 Last Admin: 10/16/24 01:29 Dose: 20 mg Documented By: VICTORIANO Magnesium Sulfate/Dextrose (Magnesium Sulfate / D5w) 1 gm in 100 mls @ 100 mls/hr IV NOW STA Stop: 10/16/24 02:04 Last Infusion: 10/16/24 02:49 Dose: Infused Documented By: Admin: 10/16/24 01:29 Dose: 100 mls/hr Documented By: VICTORIANO Magnesium Sulfate/Dextrose (Magnesium Sulfate / D5w) 1 gm in 100 mls @ 50 mls/hr IV ONE ONE Stop: 10/16/24 04:59 Last Infusion: 10/16/24 05:35 Dose: Infused Documented By: Admin: 10/16/24 03:15 Dose: 50 mls/hr Documented By: NAPOLEON Digoxin 250 mcg/ Syringe 10 mls @ 2 mls/min IV NOW STA Stop: 10/16/24 03:31 Last Admin: 10/16/24 03:59 Dose: 2 mls/min Documented By: NAPOLEON Albumin Human (Albumin 25%) 25 gm in 100 mls @ 50 mls/hr IV ONE ONE Stop: 10/16/24 05:29 Last Infusion: 10/16/24 06:03 Dose: Infused Documented By: Admin: 10/16/24 04:06 Dose: 50 mls/hr Documented By: NAPOLEON Metoprolol Succinate (Metoprolol Succ 50mg Ext Rel Tab) 100 mg PO NOW STA Stop: 10/16/24 02:55 Last Admin: 10/16/24 03:14 Dose: Not Given Documented By: NAPOLEON Imaging Data Radiologist's Impression: Chest X-Ray 10/16/24 00:07 EXAM: XR chest 1V not portable CLINICAL HISTORY: Chest pain, nonspecific TECHNIQUE: Radiograph of chest was acquired. 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 Blunting of left costo-phrenic angle. Dilated right descending pulmonary artery shadow. Rest lungs are clear. No acute osseous abnormality. IMPRESSION: 1. Cardiomegaly is seen. 2. Blunting of left costo-phrenic angle- likely pleural effusion. 3. Dilated right descending pulmonary artery shadow. 4. No interval change. Electronically signed by Evin Amador 10-16-2024 01:26 AM Discharge Plan Visit Data Chief Complaint: Tachycardia Stated Complaint: HEART RACING,SICK,NAUSEA,VOMITING ED Provider: Amie Lozano Discharge Problem: Atrial fibrillation with rapid ventricular response, Elevated troponin, Elevated brain natriuretic peptide (BNP) level, Chronic systolic congestive heart failure, NYHA class 2 Patient Disposition: Admitted As Inpatient Discharge Instructions Interventions: ED Discharge Assessment Last Done: 10/16/24 05:58
[2024-10-16 00:59] LABS: Alanine Aminotransferase 20 U/L (7-52); Albumin Globulin Ratio 1.1 (0.9-2); Albumin Level 3.8 gm/dl (3.4-5.0); Alkaline Phosphatase 70 U/L (34-104); Aspartate Aminotransferase 21 U/L (13-39); BUN Creatinine Ratio 16.8 (10-20); Bilirubin,Total 0.5 mg/dl (0.2-1.0); Blood Urea Nitrogen 24 mg/dl (6-23); Calcium 9.9 mg/dl (8.6-10.3); Carbon Dioxide 25 mmol/L (21-32); Creatinine Clr Calc Pharmacy 63.8 ml/min; Globulin 3.5 gm/dl (2.5-4.0); Glucose 206 mg/dl (70-99(Fasting)); Magnesium 1.8 mg/dl (1.7-2.4); Total Protein 7.3 gm/dl (6.0-8.3)
[2024-10-16 01:05] LABS: Troponin I High Sensitivity 40.6 pg/ml (0-20)
[2024-10-16 01:09] LABS: INR 1.1 (0.9-1.1); Partial Thromboplastin Time 27 Seconds (21-31); Prothrombin Time 11.4 Seconds (9.0-12.0)
[2024-10-16 01:11] LABS: Anion Gap 8 (3-11); Chloride 104 mmol/L (98-107); Potassium 4.8 mmol/L (3.5-5.1); Sodium 137 mmol/L (136-145)
[2024-10-16 01:19] LABS: Thyroid Stimulating Hormone < 0.010 uIu/ml (0.300-4.500)
--- NOTE | 2024-10-16 01:26 | XRay Report ---
EXAM: XR chest 1V not portable CLINICAL HISTORY: Chest pain, nonspecific TECHNIQUE: Radiograph of chest was acquired. 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 Blunting of left costo-phrenic angle. Dilated right descending pulmonary artery shadow. Rest lungs are clear. No acute osseous abnormality. IMPRESSION: 1. Cardiomegaly is seen. 2. Blunting of left costo-phrenic angle- likely pleural effusion. 3. Dilated right descending pulmonary artery shadow. 4. No interval change. Electronically signed by Evin Amador 10-16-2024 01:26 AM
[2024-10-16] MEDS: MAGNESIUM SULFATE / D5W 1 GM/100 ML BAG IV STA (01:29)
[2024-10-16] MEDS: FUROSEMIDE INJ 20 MG/2 ML VIAL IV ONE (01:29)
[2024-10-16 01:55] LABS: T4 Free Thyroxine 2.95 ng/dl (0.61-1.60)
[2024-10-16] MEDS: METOPROLOL SUCC 50MG EXT REL TAB PO STA (03:14)
[2024-10-16] MEDS: MAGNESIUM SULFATE / D5W 1 GM/100 ML BAG IV ONE (03:15)
[2024-10-16] MEDS: DIGOXIN 250 MCG in SYRINGE 9 ML IV STA (03:59)
[2024-10-16] MEDS: ALBUMIN 25% 25 GM/100 ML VIAL IV ONE (04:06)
--- NOTE | 2024-10-16 05:34 | History & Physical Report ---
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 Eliquis Full code Patient's requesting updates from providers. Ms. Eva James, contact #[phone]. Text document was generated using [employer] voice recognition software. It may contain grammatical or spelling errors. Kindly contact undersigned for clarification of any documentation item in question. History of Present Illness Chief Complaint: Abnormal heartbeat Primary Care Provider: Jazmine Anguiano MD History obtained from patient, family, and records. Medical history significant for chronic systolic heart failure secondary to nonischemic cardiomyopathy (EF 29%, TTE 2023) sp ICD, moderate MR, aortic root enlargement, nonocclusive CAD as per records, A. fib on Eliquis, HTN, hyperlipidemia/statin intolerance, JOSE DE JESUS on CPAP, DM2 on oral medications, CRI (recent creatinine of 1.4), chronic anemia (baseline hemoglobin 12-13), past tobacco abuse. Last confinement 2020 for decompensated heart failure. Patient recently ill with cough, congestion, diarrhea symptoms after a bout of influenza illness last week. Sick contacts at home. Cough symptoms productive of white sputum getting better as per patient. Outpatient prescriber fluticasone inhaler, Mucinex and cough suppressants. Patient felt uncomfortable at home last night. No actual chest pain or shortness of breath. One-time nausea with emesis without abdominal pain. Fast heartbeat noted at home. Denies headache symptoms. Denies fluid retention. Patient compliant with home medications. Patient in rapid A-fib upon arrival at the ER. Heart rate 120s. Lowest SBP noted to be 90s. 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 Allergy/AdvReac Type Severity Reaction Status Date / Time [id number] Reductase AdvReac Intermediate Joint Pain Verified 09/14/23 01:27 Inhibitor Home Medications Medication Instructions Recorded Confirmed Type aspirin 81 mg tablet,delayed 81 mg PO QAM 01/05/21 10/16/24 History release coQ10 (ubiquinol) 100 mg capsule 100 mg PO QAM 01/05/21 10/16/24 History multivitamin 1 tab PO QAM 01/05/21 10/16/24 History omega 5-gqj-cer-fish oil 1,200 mg 1 cap PO HS 01/05/21 10/16/24 History (144 mg-216 mg) capsule (Fish Oil) cholecalciferol (vitamin D3) 50 50 mcg PO QAM 05/15/21 10/16/24 History mcg (2,000 unit) tablet (Vitamin D3) latanoprost 0.005 % eye drops 1 drp OPB HS 05/15/21 10/16/24 History metformin 500 mg tablet 500 mg PO BIDM 05/15/21 10/16/24 History metoprolol succinate 100 mg 100 mg PO BID 05/15/21 10/16/24 History tablet,extended release 24 hr omeprazole 20 mg capsule,delayed 20 mg PO QAM 05/15/21 10/16/24 History release amiodarone 200 mg tablet 200 mg PO QAM 12/22/22 10/16/24 History brimonidine 0.2 %-timolol 0.5 % 1 drp OPR BID 12/22/22 10/16/24 History eye drops rivaroxaban 20 mg tablet (Xarelto) 20 mg PO QDD 12/22/22 10/16/24 History furosemide 20 mg tablet 20 mg PO QAM 01/15/23 10/16/24 History sacubitril 24 mg-valsartan 26 mg 1 tab PO BID 09/14/23 10/16/24 History tablet (Entresto) spironolactone 25 mg tablet 12.5 mg PO DAILY 09/14/23 10/16/24 History benzonatate 100 mg capsule 100 mg PO TID PRN Cough 10/16/24 10/16/24 History ciclopirox 8 % topical solution 1 applic topical HS 10/16/24 10/16/24 History evolocumab 140 mg/mL subcutaneous 140 mg subcut .EVERY 14 DAYS 10/16/24 10/16/24 History pen injector (Repatha SureClick) semaglutide 2 mg/dose (8 mg/3 mL) 2 mg subcut WK 10/16/24 10/16/24 History subcutaneous pen injector (Ozempic) Past Med/Surg History Problem List (Updated 10/16/24 @ 11:49 by Farooq Quiroz) Mitral regurgitation Hyperthyroidism Elevated brain natriuretic peptide (BNP) level (Acute) Elevated troponin (Acute) Atrial fibrillation with rapid ventricular response (Acute) Encounter for pre-operative examination Atrial fibrillation with RVR (Acute) Cardiac defibrillator in place (Chronic) Morbid obesity (Chronic) BMI 41.8 Chronic systolic congestive heart failure, NYHA class 2 (Chronic) Hyperlipidemia (Chronic) CAD (coronary artery disease) (Chronic) HTN (hypertension) (Chronic) Medical History Osteoarthritis Diabetes mellitus, type 2 On anticoagulant therapy xarelto daily Glaucoma SARS-CoV-2 positive hx of x2--04/2021 and 08/2021--no symptoms now Atrial fibrillation on xarelton/metoprolol--follows with Dr. Aldridge Acute HFrEF (heart failure with reduced ejection fraction) SOB (shortness of breath) Cardiac defibrillator in place Morbid obesity BMI 41.8 Chronic systolic congestive heart failure, NYHA class 2 JOSE DE JESUS (obstructive sleep apnea) cpap Hyperlipidemia HTN (hypertension) CAD (coronary artery disease) NICM (nonischemic cardiomyopathy) Surgical History Status post hardware removal History of open reduction and internal fixation (ORIF) procedure left ankle fx repair--hardware removed History of removal of cyst off knuckle History of prostate biopsy benign History of colonoscopy History of wisdom tooth extraction History of cardiac cath 2012 @ [place], [place]--no stents S/P ICD (internal cardiac defibrillator) procedure placed 04/26/19 Dr. Guevara @ [facility]--medtronic History of total right hip arthroplasty History of total left hip arthroplasty Family History Mother Stroke Father Coronary heart disease Other No family history of adverse response to anesthesia Social History Smoking Status: Former smoker Second Hand Exposure: No; Do You Dip or Chew Tobacco: No; Hx Alcohol Use: No Hx Substance Use: No Preferred Language: Sinhala Communication Ability: Effective Blue Prints Trimmer Required: No Beliefs That Will Affect Care: None Current Living Situation: Spouse Feels Safe at Home: Yes Assistive Devices: Glasses Review of Systems Review of Systems: As per HPI, all other systems reviewed and negative Physical Exam Physical Exam: GENERAL: Comfortable, pleasant, morbidly obese SKIN: Pallor,, warm HEENT: Partial alopecia, bespectacled, pale palpebral conjunctivae, no ptosis, dry buccal mucosa NECK : Supple, short neck, no tenderness CHEST : Decreased breath sounds, no tenderness HEART : Tachycardic, irregular,, no obvious murmurs ABDOMEN: Some distention, nontender EXTREMITIES : Bilateral LE swelling without LE tenderness, no other conspicuous deformities noted NEUROLOGIC : Coherent, no facial asymmetry, no other gross focality Results & Data Results & Data Vital Signs (Past 12 Hours) Vital Signs Temp Pulse Pulse Resp BP BP Pulse Ox 10/16/24 04:31 91 H 10/16/24 03:59 103 H 10/16/24 03:35 114 H 20 127/86 95 10/16/24 03:00 103 H 23 99/82 L 95 10/16/24 02:10 107 H 19 96 10/16/24 00:40 102 H 10/16/24 00:31 116 H 25 H 127/93 95 10/16/24 00:28 94 10/16/24 00:26 96 10/16/24 00:04 36.6 C 120 H 22 133/78 95 O2 Del Method 10/16/24 04:31 10/16/24 03:59 10/16/24 03:35 Room Air 10/16/24 03:00 Room Air 10/16/24 02:10 Room Air 10/16/24 00:40 10/16/24 00:31 Room Air 10/16/24 00:28 Room Air 10/16/24 00:26 Room Air 10/16/24 00:04 Room Air Laboratory Results Laboratory Results WBC 9.91 K/ul (4.8-10.8) 10/16/24 00:26 RBC 5.23 M/uL (4.70-6.10) 10/16/24 00:26 Hgb 12.2 g/dl (14.0-18.0) L 10/16/24 00:26 Hct 39.8 % (42.0-52.0) L 10/16/24 00:26 MCV 76.1 fL (80.0-100.0) L 10/16/24 00:26 MCH 23.3 pg (25.0-34.0) L 10/16/24 00: MCHC 30.7 g/dL (32.0-36.0) L 10/16/24 00: RDW Std Deviation 48.9 fL (36.4-46.3) H 10/16/24 00: RDW Coeff of Jose 18.5 % (11.5-14.5) H 10/16/24 00: Plt Count 299 K/uL (130-400) 10/16/24 00: MPV 9.7 fL (9.4-12.4) 10/16/24 00: Immature Gran % (Auto) 0.3 % 10/16/24 00: Neut % (Auto) 79.3 % 10/16/24 00:26 Lymph % (Auto) 9.4 % 10/16/24 00:26 Oliver % (Auto) 9.8 % 10/16/24 00:26 Eos % (Auto) 0.7 % 10/16/24 00:26 Baso % (Auto) 0.5 % 10/16/24 00:26 Neut # (Auto) 7.86 K/uL (1.40-6.50) H 10/16/24 00:26 Lymph # (Auto) 0.93 K/uL (1.20-3.40) L 10/16/24 00:26 Oliver # (Auto) 0.97 K/uL (0.11-0.59) H 10/16/24 00:26 Eos # (Auto) 0.07 K/uL (0.00-0.50) 10/16/24 00:26 Baso # (Auto) 0.05 K/uL (0.00-0.20) 10/16/24 00:26 Immature Gran # (Auto) 0.03 K/uL (0.01-0.20) 10/16/24 00:26 PT 11.4 Seconds (9.0-12.0) 10/16/24 00: INR 1.1 (0.9-1.1) 10/16/24 00: APTT 27 Seconds (21-31) 10/16/24 00: PTT Ratio 1.0 10/16/24 00: Sodium 137 mmol/L (136-145) 10/16/24 00: Potassium 4.8 mmol/L (3.5-5.1) 10/16/24 00: Chloride 104 mmol/L (98-107) 10/16/24 00: Carbon Dioxide 25 mmol/L (21-32) 10/16/24 00: Anion Gap 8 (3-11) 10/16/24 00: BUN 24 mg/dl (6-23) H 10/16/24 00: Creatinine 1.43 mg/dl (0.6-1.4) H 10/16/24 00: Est Cr Clr Drug Dosing 63.8 ml/min 10/16/24 00:26 eGFR 53.37 10/16/24 00: BUN/Creatinine Ratio 16.8 (10-20) 10/16/24 00: Glucose 206 mg/dl (70-99(Fasting)) H 10/16/24 00: Calcium 9.9 mg/dl (8.6-10.3) 10/16/24 00:26 Magnesium 1.8 mg/dl (1.7-2.4) 10/16/24 00: Total Bilirubin 0.5 mg/dl (0.2-1.0) 10/16/24 00:26 AST 21 U/L (13-39) 10/16/24 00:26 ALT 20 U/L (7-52) 10/16/24 00: Alkaline Phosphatase 70 U/L (34-104) 10/16/24 00: Troponin I High Sens 39.8 pg/ml (0-20) H 10/16/24 02:30 B-Natriuretic Peptide 1219 pg/ml (0-100) H 10/16/24 00:26 Total Protein 7.3 gm/dl (6.0-8.3) 10/16/24 00:26 Albumin 3.8 gm/dl (3.4-5.0) 10/16/24 00: Globulin 3.5 gm/dl (2.5-4.0) 10/16/24: Albumin/Globulin Ratio 1.1 (0.9-2) 10/16/24 00: TSH < 0.010 uIu/ml (0.300-4.500) L 10/16/24 00: Free T4 2.95 ng/dl (0.61-1.60) H 10/16/24 00:26 Impressions Chest X-Ray 10/16/24 00:07 EXAM: XR chest 1V not portable CLINICAL HISTORY: Chest pain, nonspecific TECHNIQUE: Radiograph of chest was acquired. COMPARISON: CR, 05/19/2021 08:01:48 HOURLY SHIFT FINDINGS: Cardiomegaly is seen. Blunting of left costo-phrenic angle. Dilated right descending pulmonary artery shadow. Rest lungs are clear. No acute osseous abnormality. IMPRESSION: 1. Cardiomegaly is seen. 2. Blunting of left costo-phrenic angle- likely pleural effusion. 3. Dilated right descending pulmonary artery shadow. 4. No interval change. Electronically signed by Evin Amador 10-16-2024 01:26 AM Diagnostic Findings EKG as per my interpretation :Rate 120, A-fib, LAD, LAFB, no ischemia
[2024-10-16] MEDS ORDERED: PROMETHAZINE 6.25 MG/50.25 ML BAG IV PRN (05:37)
[2024-10-16] MEDS ORDERED: ACETAMINOPHEN 325 MG TAB PO PRN (05:37)
[2024-10-16] MEDS ORDERED: oxyCODONE HCL IR 5 MG TAB (IMMEDIATE RELEASE) PO PRN (05:38)
[2024-10-16] MEDS ORDERED: GLUCOSE 40% GEL 15 GM TUBE PO PRN (05:58)
[2024-10-16] MEDS ORDERED: GLUCAGON FOR INJ 1 MG VIAL SQ PRN (05:58)
[2024-10-16] MEDS ORDERED: CARBOHYDRATES FOR HYPOGLYCEMIA PO PRN (05:58)
[2024-10-16] MEDS ORDERED: GLUCOSE 10 TAB/TUBE PO PRN (05:58)
[2024-10-16] MEDS ORDERED: DEXTROSE 50% 50 ML SYRINGE IV PRN (05:58)
[2024-10-16 08:51] LABS: Estimated Average Glucose 189 mg/dl; Hemoglobin A1C 8.2 % (4.5-5.6)
[2024-10-16] MEDS: INSULIN ASPART PER UNIT CHARGE SC SCH (08:53)
[2024-10-16] MEDS ORDERED: NON-FORMULARY MEDICATION (Brimonidine-Timolol 0.2-0.5 % drops) OPR SCH (09:00)
[2024-10-16] MEDS: MULTIVITAMIN TAB PO SCH (09:56)
[2024-10-16] MEDS: ASPIRIN 81 MG ECTAB PO SCH (09:56)
[2024-10-16] MEDS: METOPROLOL SUCC 50MG EXT REL TAB PO SCH (09:57)
[2024-10-16] MEDS: PANTOprazole 40 MG TAB PO SCH (09:57)
[2024-10-16] MEDS: BRIMONIDINE TARTRATE 0.2% 5ML OPR SCH (09:57)
[2024-10-16] MEDS: AMIODARONE 200 MG TAB PO SCH (09:57)
[2024-10-16] MEDS: TIMOLOL MALEATE 0.5% OP SOLN 5 ML BTL OPR SCH (09:58)
--- NOTE | 2024-10-16 11:13 | Cardiology Consultation ---
Date of Consultation October 16, 2024 Assessment & Plan (1) Atrial fibrillation with rapid ventricular response: (2) Cardiac defibrillator in place: (3) Hyperthyroidism: (4) Mitral regurgitation: Plan 69-year-old male presenting to the [facility] ER in [place] hours of October 16, 2024 after home pulse oximetry revealed irregular, elevated heart rate following recent viral respiratory illness. EKG with recurrent atrial fibrillation with a rapid ventricular response. 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 Patient seemingly asymptomatic with recurrent atrial fibrillation which was prescribed in April 2021 when hospitalized with COVID and acute decompensated heart failure, chronically prescribed rivaroxaban (Xarelto) anticoagulation. Heart rates acceptably controlled following 1 dose of IV digoxin as well as utilization of prior to arrival metoprolol succinate 100 milligrams twice per day. Entresto on hold noting borderline blood pressures on presentation. Examination with mild volume overload. 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 * Continue anticoagulation - rivaroxaban (Xarelto) * Resume prior to arrival furosemide and spironolactone * Hold Entresto for now, RE: above, borderline BP; likely resume starting at 1/2 tab twice a day in AM * Refer for resting echocardiography * Maintain telemetry * See documentation by Dr. Rodríguez Supervising Physician Co-Signing Physician Notes Patient was seen and personally examined. Full assessment and plan as outlined above. Care and management personally discussed with advanced provider. 69-year-old male with nonischemic cardiomyopathy with severe dilated left ventricle with severe LV dysfunction and biatrial enlargement. Recent respiratory infection as outpatient. No acute cardiac symptoms but noted on pulse oximetry to have elevated heart rate and irregular heart rhythm. Sought ER evaluation where is found to be in atrial fibrillation with elevated ventricular response. Chronically anticoagulated with Xarelto. Pacer defibrillator interrogation reveals lapsed into atrial fibrillation on 10/14/2024. Current course possibly aggravated by hyperthyroidism, medication induced Plan as above ultimate goals rate control. Watch for signs of clinical heart failure deterioration. Degree of cardiomyopathy, LV and biatrial dilatation suggest low likelihood of maintaining sinus rhythm at this time with current medication induced (amiodarone) contraindication to ongoing use Cardiology will continue to follow I spent a total of 40 minutes on the date of service in preparation, delivery, and documentation of the care provided to this patient, excluding any time spent in the performance of separately billed services. I have personally performed a history and physical examination on the patient. I have reviewed the advance practitioner's documentation, and I agree with, and take responsibility for the plan of care. History of Present Illness Reason for Consultation: Atrial fibrillation Requesting Physician: Dr. Lopez Attending Physician: Dr. Amelia Marroquin MD History of Present Illness Mr. Sharad James is a 69-year-old male who is being seen at the request of Dr Lopez. Reason for consultation is atrial fibrillation. was sick with the flu a couple weeks ago. Patient started with cough approximately 10 days ago. Patient describes being "pretty much over it at this point" though still with a nagging cough associated with nausea and 1 episode of emesis after coughing Wednesday morning. suggested checking oxygen saturation which was okay however "the heart rate was all over the place." Notes staying at home for a little while to see if things would settle down, ultimately presenting to the [facility] ER via private vehicle late in the evening on October 15, 2024. Patient notably has been without CPAP therapy the last few weeks due to the cold. EKG in the ER revealed recurrent atrial fibrillation with a rapid ventricular response, 117 bpm. Left axis deviation observed along with nonspecific interventricular conduction block. QRS duration 136 ms. QTc interval 482 ms. Laboratory work notable for low TSH (less than 0.010), elevated free T4 (2.95) Device interrogation shortly after presentation revealed an appropriately functioning single-chamber Medtronic ICD with 5.6 years remaining longevity. Patient has been in atrial fibrillation since 05:28 on October 14, 2024. Patient prescribed amiodarone in April 2021 when hospitalized with COVID; course complicated by atrial fibrillation with rapid ventricular response and acute decompensated systolic congestive heart failure. Problem List: Longstanding history of severe left ventricular systolic dysfunction due to a nonischemic cardiomyopathy. LVEF initially 20% Moderate to severe mitral regurgitation Status post implantation of a single-chamber Medtronic AICD on April 26, 2019 for primary prevention of sudden cardiac . Prior cardiac catheterization in 2012 with mild nonobstructive coronary artery disease. Hypertension Dyslipidemia with poor tolerance to statin therapies Type 2 diabetes mellitus Obstructive sleep apnea Family History: Mother had a CVA at 70, passing with CHF later. Father when patient was [age]. Half brother with colon cancer. Social History: Reformed smoker. Social alcohol. 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 . Allergies Allergy/AdvReac Type Severity Reaction Status Date / Time Ixjyqio-[id number]-OdA Reductase AdvReac Intermediate Joint Pain Verified 09/14/23 01:27 Inhibitor Home Medications Medication Instructions Recorded Confirmed Type aspirin 81 mg tablet,delayed 81 mg PO QAM 01/05/21 10/16/24 History release coQ10 (ubiquinol) 100 mg capsule 100 mg PO QAM 01/05/21 10/16/24 History multivitamin 1 tab PO QAM 01/05/21 10/16/24 History omega 3-wjj-zyo-fish oil 1,200 mg 1 cap PO HS 01/05/21 10/16/24 History (144 mg-216 mg) capsule (Fish Oil) cholecalciferol (vitamin D3) 50 50 mcg PO QAM 05/15/21 10/16/24 History mcg (2,000 unit) tablet (Vitamin D3) latanoprost 0.005 % eye drops 1 drp OPB HS 05/15/21 10/16/24 History metformin 500 mg tablet 500 mg PO BIDM 05/15/21 10/16/24 History metoprolol succinate 100 mg 100 mg PO BID 05/15/21 10/16/24 History tablet,extended release 24 hr omeprazole 20 mg capsule,delayed 20 mg PO QAM 05/15/21 10/16/24 History release amiodarone 200 mg tablet 200 mg PO QAM 12/22/22 10/16/24 History brimonidine 0.2 %-timolol 0.5 % 1 drp OPR BID 12/22/22 10/16/24 History eye drops rivaroxaban 20 mg tablet (Xarelto) 20 mg PO QDD 12/22/22 10/16/24 History furosemide 20 mg tablet 20 mg PO QAM 01/15/23 10/16/24 History sacubitril 24 mg-valsartan 26 mg 1 tab PO BID 09/14/23 10/16/24 History tablet (Entresto) spironolactone 25 mg tablet 12.5 mg PO DAILY 09/14/23 10/16/24 History benzonatate 100 mg capsule 100 mg PO TID PRN Cough 10/16/24 10/16/24 History ciclopirox 8 % topical solution 1 applic topical HS 10/16/24 10/16/24 History evolocumab 140 mg/mL subcutaneous 140 mg subcut .EVERY 14 DAYS 10/16/24 10/16/24 History pen injector (Repatha Lybrateick) semaglutide 2 mg/dose (8 mg/3 mL) 2 mg subcut WK 10/16/24 10/16/24 History subcutaneous pen injector (Ozempic) Patient History Medical History Osteoarthritis Diabetes mellitus, type 2 On anticoagulant therapy xarelto daily Glaucoma SARS-CoV-2 positive hx of x2--04/2021 and 08/2021--no symptoms now Atrial fibrillation on xarelton/metoprolol--follows with Dr. Aldridge Acute HFrEF (heart failure with reduced ejection fraction) SOB (shortness of breath) Cardiac defibrillator in place Morbid obesity BMI 41.8 Chronic systolic congestive heart failure, NYHA class 2 JOSE DE JESUS (obstructive sleep apnea) cpap Hyperlipidemia HTN (hypertension) CAD (coronary artery disease) NICM (nonischemic cardiomyopathy) Surgical History Status post hardware removal History of open reduction and internal fixation (ORIF) procedure left ankle fx repair--hardware removed History of removal of cyst off knuckle History of prostate biopsy benign History of colonoscopy History of wisdom tooth extraction History of cardiac cath 2012 @ [place], [place]--no stents S/P ICD (internal cardiac defibrillator) procedure placed 04/26/19 Dr. Guevara @ [facility]--medtronic History of total right hip arthroplasty History of total left hip arthroplasty Family History Mother Stroke Father Coronary heart disease Other No family history of adverse response to anesthesia Social History Smoking Status: Former smoker Second Hand Exposure: No; Do You Dip or Chew Tobacco: No; Hx Alcohol Use: No Hx Substance Use: No Preferred Language: Jordanian Communication Ability: Effective Highway Maintenance Worker Required: No Beliefs That Will Affect Care: None Current Living Situation: Spouse Feels Safe at Home: Yes Assistive Devices: Glasses Review of Systems Review of Systems: Complete Review of Systems is as stated above, negative, or noncontributory Physical Exam Physical Exam: General: A&Ox3. NAD. HENT: Normocephalic. Atraumatic. Eyes: PER. Conjunctiva pink, sclera clear. Neck: 5 cm JVD. + HJR. Heart: Irregularly irregular at 90 bpm. I could not appreciate a murmur. No rub. Lungs: Decreased at the bases. No wheeze. Abdomen: +BS. Soft. Nontender. No masses or organomegaly. Extremities: 1+ Pretibial edema. No clubbing. No cyanosis Limited neurological examination is without focal deficits. Pulses: radial=2/4, posterior tibial=1/4. Results & Data Vital Signs (Past 12 Hours) Vital Signs Temp Pulse Pulse Pulse Resp BP BP 10/16/24 09:19 89 10/16/24 09:01 10/16/24 08:23 36.4 C L 83 20 121/89 10/16/24 07:25 93 H 10/16/24 07:16 90 18 133/77 10/16/24 06:01 10/16/24 06:00 96 H 23 131/90 10/16/24 05:50 95 H 16 122/90 10/16/24 05:09 97 H 20 10/16/24 04:31 91 H 10/16/24 04:01 95 H 20 129/72 10/16/24 03:59 103 H 10/16/24 03:39 87 21 127/86 10/16/24 03:35 114 H 20 127/86 10/16/24 03:00 103 H 23 99/82 L 10/16/24 02:10 107 H 19 10/16/24 00:40 102 H 10/16/24 00:31 116 H 25 H 127/93 10/16/24 00:28 10/16/24 00:26 10/16/24 00:04 36.6 C 120 H 22 133/78 Pulse Ox Pulse Ox O2 Del Method O2 Del Method 10/16/24 09:19 10/16/24 09:01 Room Air 10/16/24 08:23 96 Room Air 10/16/24 07:25 10/16/24 07:16 95 Room Air 10/16/24 06:01 96 Room Air 10/16/24 06:00 10/16/24 05:50 10/16/24 05:09 10/16/24 04:31 10/16/24 04:01 97 Room Air 10/16/24 03:59 10/16/24 03:39 96 Room Air 10/16/24 03:35 95 Room Air 10/16/24 03:00 95 Room Air 10/16/24 02:10 96 Room Air 10/16/24 00:40 10/16/24 00:31 95 Room Air 10/16/24 00:28 94 Room Air 10/16/24 00:26 96 Room Air 10/16/24 00:04 95 Room Air Laboratory Results Cardiac Enzymes 10/16/24 10/16/24 Range/Units 00:26 02:30 AST 21 (13-39) U/L Troponin I High Sens 40.6 H 39.8 H (0-20) pg/ml B-Natriuretic Peptide 1219 H (0-100) pg/ml Coagulation 10/16/24 Range/Units 00:26 PT 11.4 (9.0-12.0) Seconds APTT 27 (21-31) Seconds B-Natriuretic Peptide 1219 H (0-100) pg/ml CBC 10/16/24 Range/Units 00:26 WBC 9.91 (4.8-10.8) K/ul RBC 5.23 (4.70-6.10) M/uL Hgb 12.2 L (14.0-18.0) g/dl Hct 39.8 L (42.0-52.0) % Plt Count 299 (130-400) K/uL Neut # (Auto) 7.86 H (1.40-6.50) K/uL Lymph # (Auto) 0.93 L (1.20-3.40) K/uL Jones # (Auto) 0.97 H (0.11-0.59) K/uL Eos # (Auto) 0.07 (0.00-0.50) K/uL Baso # (Auto) 0.05 (0.00-0.20) K/uL Comprehensive Metabolic Panel 10/16/24 Range/Units 00:26 Sodium 137 (136-145) mmol/L Potassium 4.8 (3.5-5.1) mmol/L Chloride 104 (98-107) mmol/L Carbon Dioxide 25 (21-32) mmol/L BUN 24 H (6-23) mg/dl Creatinine 1.43 H (0.6-1.4) mg/dl Glucose 206 H (70-99(Fasting)) mg/dl Calcium 9.9 (8.6-10.3) mg/dl AST 21 (13-39) U/L ALT 20 (7-52) U/L Alkaline Phosphatase 70 (34-104) U/L Total Protein 7.3 (6.0-8.3) gm/dl Albumin 3.8 (3.4-5.0) gm/dl Intake and Output 10/15/24 10/16/24 10/16/24 22:59 06:59 14:59 Intake Total 300 / 300 Output Total 425 / 425 Balance -125 / -125 Intake: IV 300 / 300 Albumin 25% 25 gm In 100 ml @ 100 / 100 50 mls/hr IV ONE ONE Rx#: [id number] Magnesium Sulfate / D5w 1 gm In 200 / 200 100 ml @ 50 mls/hr IV ONE ONE Rx#:[id number] Output: Urine 425 / 425 Other: Weight 125.4 kg Weight Measurement Method Built in [facility] Diagnostic Findings Telemetry: Atrial fibrillation with rates in the 70's to 110 bpm.
--- NOTE | 2024-10-16 15:37 | Electrocardiogram Report ---
Test Reason : Blood Pressure : */* mmHG Vent. Rate : 117 BPM Atrial Rate : * BPM P-R Int : * ms QRS Dur : 136 ms QT Int : 346 ms P-R-T Axes : * -73 76 degrees QTcB Int : 482 ms Atrial fibrillation with rapid ventricular response Left axis deviation Non-specific intra-ventricular conduction block Abnormal ECG When compared with ECG of 21-Dec-2022 23:39, Vent. rate has increased by 40 bpm Confirmed by Felipe Wild ([id number]) on 10/16/2024 3:36:38 PM Referred By: REFERRED SELF Confirmed By: Felipe Wild
--- NOTE | 2024-10-16 17:20 | Hospitalist Progress Note ---
Date of Service October 16, 2024 Assessment & Plan (1) Atrial fibrillation with rapid ventricular response: Plan Pt is a 69yoM with PMhx significant for chronic systolic heart failure secondary to nonischemic cardiomyopathy (EF 29%, TTE 2023) sp ICD, moderate MR, aortic root enlargement, nonocclusive CAD as per records, A. fib on Eliquis, HTN, hyperlipidemia/statin intolerance, JOSE DE JESUS on CPAP, DM2 on oral medications, CRI (recent creatinine of 1.4), chronic anemia (baseline hemoglobin 12-13), past tobacco abuse who presented with concern for tachycardia and found to be in rapid atrial fibrillation. 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 Consider d/c amiodarone Hypertension BP on the lower side Hold Entresto for now given borderline BP chronic systolic heart failure secondary to nonischemic cardiomyopathy sp ICD Holding home diuretics at this time, resume as able URI Symptoms for over a week, will defer on resp panel Chest XRAY unremarkable Supportive care Chronic Medical Problems: hyperlipidemia/statin intolerance JOSE DE JESUS on CPAP- encourage use DM2 on oral medications, reasonable control as of recent hemoglobin A1c of 7.4 last year chronic anemia, hemoglobin at baseline past tobacco abuse Diet: HH/DMII DVT prophylaxis: Xarelto Full code Dispo: PT/OT ordered for further recs Admission and Anticipated Discharge Date Admission Date: October 16, 2024 Subjective pt was seen laying in bed. Denied acute concerns Notes he has a lingering cold Review of Systems Review of Systems: All systems reviewed & are unremarkable except as noted in Subjective Physical Exam Physical Exam: General: Alert, oriented. No acute distress Skin: No noted rashes or bruises Psych: Appropriate mood and affect HEENT: NC/AT CV: irregular rate and rhythm Resp: Breath sounds clear bilaterally, no increased effort of breathing Abdomen: Soft, nontender Extremities: No edema in lower extremities bilaterally. Results & Data Results & Data Vital Signs (Past 12 Hours) Vital Signs Temp Pulse Pulse Resp BP BP Pulse Ox 10/16/24 16:04 36.4 C L 86 18 141/85 H 94 10/16/24 14:04 94 H 10/16/24 11:13 36.5 C 78 19 125/84 94 10/16/24 09:19 89 10/16/24 09:01 10/16/24 08:23 36.4 C L 83 20 121/89 96 10/16/24 07:25 93 H 10/16/24 07:16 90 18 133/77 95 10/16/24 06:01 10/16/24 06:00 96 H 23 131/90 10/16/24 05:50 95 H 16 122/90 10/16/24 05:09 97 H 20 Pulse Ox O2 Del Method O2 Del Method 10/16/24 16:04 Room Air 10/16/24 14:04 10/16/24 11:13 Room Air 10/16/24 09:19 10/16/24 09:01 Room Air 10/16/24 08:23 Room Air 10/16/24 07:25 10/16/24 07:16 Room Air 10/16/24 06:01 96 Room Air 10/16/24 06:00 10/16/24 05:50 10/16/24 05:09
[2024-10-16] MEDS: RIVAROXABAN 20 MG TAB PO SCH (17:24)
[2024-10-16] MEDS: LATANOPROST 0.005% OP SOLN 2.5 ML BTL OPB SCH (20:51)
[2024-10-17] MEDS: BENZONATATE 100 MG CAPSULE PO PRN (03:19)
[2024-10-17 10:01] LABS: Basophils # (auto) 0.02 K/uL (0.00-0.20); Basophils % (auto) 0.3 %; Eosinophils # (auto) 0.14 K/uL (0.00-0.50); Eosinophils % (auto) 1.9 %; Hematocrit (blood only) 39.4 % (42.0-52.0); Hemoglobin 12.1 g/dl (14.0-18.0); Immature Granulocytes # (auto) 0.03 K/uL (0.01-0.20); Immature Granulocytes % (auto) 0.4 %; Lymphocytes # (auto) 0.84 K/uL (1.20-3.40); Lymphocytes % (auto) 11.2 %; Mean Corpuscular Hemoglobin 23.7 pg (25.0-34.0); Mean Corpuscular Hgb Conc 30.7 g/dL (32.0-36.0); Mean Corpuscular Volume 77.1 fL (80.0-100.0); Mean Platelet Volume 9.9 fL (9.4-12.4); Monocytes % (auto) 10.7 %; Neutrophils # (auto) 5.64 K/uL (1.40-6.50); Neutrophils % (auto) 75.5 %; Platelet Count 282 K/uL (130-400); RDW Coefficient of Variation 18.1 % (11.5-14.5); RDW Standard Deviation 48.9 fL (36.4-46.3); Red Blood Count 5.11 M/uL (4.70-6.10); White Blood Count 7.47 K/ul (4.8-10.8)
[2024-10-17 10:20] LABS: BUN Creatinine Ratio 22.3 (10-20); Calcium 9.5 mg/dl (8.6-10.3); Creatinine Clr Calc Pharmacy 87.3 ml/min; Magnesium 1.9 mg/dl (1.7-2.4); Phosphorus 3.4 mg/dl (2.5-4.9); Potassium 4.3 mmol/L (3.5-5.1)
[2024-10-17 10:58] VITALS: PULSE 86; RESP 18; TEMP 97.5; O2SAT 98
--- NOTE | 2024-10-17 12:18 | Discharge Summary ---
Discharge Summary Date of Service October 17, 2024 Principal Dx & Hospital Course #1 = Principal Diagnosis (1) Atrial fibrillation with rapid ventricular response: Plan Pt is a 69yoM with PMhx significant for chronic systolic heart failure secondary to nonischemic cardiomyopathy (EF 29%, TTE 2023) sp ICD, moderate MR, aortic root enlargement, nonocclusive CAD as per records, A. fib on Eliquis, HTN, hyperlipidemia/statin intolerance, JOSE DE JESUS on CPAP, DM2 on oral medications, CRI (recent creatinine of 1.4), chronic anemia (baseline hemoglobin 12-13), past tobacco abuse who presented with concern for tachycardia and found to be in rapid atrial fibrillation. Rapid Atrial Fibrillation EKG noting a fib with RVR, HR 117 Echo with EF 25%-30%, severe global hypokinesis of the left ventricle, mod dilation of LV On amiodarone at home with Xarelto s/p Digoxin 1 dose on admission, rate control with Toprol XL 100mg BID initially- transitioned to 150mg qAM and 100mg qPM per recs of Cardiology continued Xarelto Cardiology consulted,recommended/stated the following on discharge: "...Amiodarone discontinued, RE: amiodarone induced hyperthyroidism Increase metoprolol succinate to 150 mg in the AM and 100 mg in the PM Proceed with rate control strategy Continue anticoagulation - rivaroxaban (Xarelto) Resume Entresto, furosemide, and spironolactone. Recommend anemia workup CHF instructions Close outpatient cardiology follow-up with Mrs. 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 Consider Endocrinology input. Hypertension Continue home meds and diuretics on discharge PCP followup for further monitoring chronic systolic heart failure secondary to nonischemic cardiomyopathy sp ICD Continue home diuretics at this time URI Symptoms for over a week, will defer on resp panel Chest XRAY unremarkable Supportive care PCP followup Chronic Medical Problems: hyperlipidemia/statin intolerance JOSE DE JESUS on CPAP- encourage use DM2 on oral medications, reasonable control as of recent hemoglobin A1c of 7.4 last year chronic anemia, hemoglobin at baseline. PCP follow up for further workup and continued monitoring. past tobacco abuse Notes For Next Care Provider Will need followup of thyroid levels. Consider Endocrinology input. 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 Medical history significant for chronic systolic heart failure secondary to nonischemic cardiomyopathy (EF 29%, TTE 2023) sp ICD, moderate MR, aortic root enlargement, nonocclusive CAD as per records, A. fib on Eliquis, HTN, hyperlipidemia/statin intolerance, JOSE DE JESUS on CPAP, DM2 on oral medications, CRI (recent creatinine of 1.4), chronic anemia (baseline hemoglobin 12-13), past tobacco abuse. Last confinement 2020 for decompensated heart failure. Patient recently ill with cough, congestion, diarrhea symptoms after a bout of influenza illness last week. Sick contacts at home. Cough symptoms productive of white sputum getting better as per patient. Outpatient prescriber fluticasone inhaler, Mucinex and cough suppressants. Patient felt uncomfortable at home last night. No actual chest pain or shortness of breath. One-time nausea with emesis without abdominal pain. Fast heartbeat noted at home. Denies headache symptoms. Denies fluid retention. Patient compliant with home medications. Patient in rapid A-fib upon arrival at the ER. Heart rate 120s. Lowest SBP noted to be 90s. 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 No acute distress Skin: No noted rashes or bruises Psych: Appropriate mood and affect HEENT: NC/AT CV: irregular rate and rhythm Resp: Breath sounds clear bilaterally, no increased effort of breathing Abdomen: Soft, nontender Extremities: No edema in lower extremities bilaterally. Updated Medication List Medication Instructions Recorded Confirmed Type aspirin 81 mg tablet,delayed 81 mg PO QAM 01/05/21 10/16/24 History release coQ10 (ubiquinol) 100 mg capsule 100 mg PO QAM 01/05/21 10/16/24 History multivitamin 1 tab PO QAM 01/05/21 10/16/24 History omega 2-mqx-rkq-fish oil 1,200 mg 1 cap PO HS 01/05/21 10/16/24 History (144 mg-216 mg) capsule (Fish Oil) cholecalciferol (vitamin D3) 50 50 mcg PO QAM 05/15/21 10/16/24 History mcg (2,000 unit) tablet (Vitamin D3) latanoprost 0.005 % eye drops 1 drp OPB HS 05/15/21 10/16/24 History metformin 500 mg tablet 500 mg PO BIDM 05/15/21 10/16/24 History omeprazole 20 mg capsule,delayed 20 mg PO QAM 05/15/21 10/16/24 History release brimonidine 0.2 %-timolol 0.5 % 1 drp OPR BID 12/22/22 10/16/24 History eye drops rivaroxaban 20 mg tablet (Xarelto) 20 mg PO QDD 12/22/22 10/16/24 History furosemide 20 mg tablet 20 mg PO QAM 01/15/23 10/16/24 History sacubitril 24 mg-valsartan 26 mg 1 tab PO BID 09/14/23 10/16/24 History tablet (Entresto) spironolactone 25 mg tablet 12.5 mg PO DAILY 09/14/23 10/16/24 History benzonatate 100 mg capsule 100 mg PO TID PRN Cough 10/16/24 10/16/24 History ciclopirox 8 % topical solution 1 applic topical HS 10/16/24 10/16/24 History evolocumab 140 mg/mL subcutaneous 140 mg subcut .EVERY 14 DAYS 10/16/24 10/16/24 History pen injector (Halima Cooper) semaglutide 2 mg/dose (8 mg/3 mL) 2 mg subcut WK 10/16/24 10/16/24 History subcutaneous pen injector (Ozempic) metoprolol succinate 100 mg 100 mg PO BID #60 tabs 10/17/24 Rx tablet,extended release 24 hr metoprolol succinate 50 mg 50 mg PO QAM #30 tabs 10/17/24 Rx tablet,extended release 24 hr Hospital Stay Data Consultations 10/16/24 02:12 ED Decision to Admit Stat 10/16/24 05:58 Consult Cardiology Routine Diagnostic Imagining Performed Chest X-Ray 10/16/24 00:07 EXAM: XR chest 1V not portable CLINICAL HISTORY: Chest pain, nonspecific TECHNIQUE: Radiograph of chest was acquired. 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 Blunting of left costo-phrenic angle. Dilated right descending pulmonary artery shadow. Rest lungs are clear. No acute osseous abnormality. IMPRESSION: 1. Cardiomegaly is seen. 2. Blunting of left costo-phrenic angle- likely pleural effusion. 3. Dilated right descending pulmonary artery shadow. 4. No interval change. Electronically signed by Evin Amador 10-16-2024 01:26 AM Discharge Instructions Given to Patient (Per Discharging Provider) Sharad, You were admitted and treated for atrial fibrillation. You were seen by the Restaurant Service Manager who recommended the following: -STOP taking your amiodarone at home -Take metoprolol succinate 150mg IN THE MORNING (take the 50mg pill with a 100mg pill) -Take metoprolol succinate 100mg IN THE EVENING (take the 100mg pill only) - Continue your home xarelto -Continue your home entresto, furosemide and spironolactone Please keep close follow up with your primary care provider and cardiology after discharge. Your primary care provider will follow up on your thyroid levels. Please do not hesitate to come back to the emergency room if your symptoms worsen or return. It was a pleasure taking care of you while you were here. Total Time Total Time Spent Total Time Spent (In Minutes): 65
--- NOTE | 2024-10-17 13:28 | Cardiology Progress Note ---
Date of Service October 17, 2024 Assessment & Plan (1) Atrial fibrillation with rapid ventricular response: (2) Cardiac defibrillator in place: (3) Hyperthyroidism: (4) Mitral regurgitation: Plan 69-year-old male presenting to the [facility] ER in early mor timothy hours of October 16, 2024 after home pulse oximetry revealed irregular, elevated heart rate following recent viral respiratory illness. EKG with recurrent atrial fibrillation with a rapid ventricular response. Abnormal TFTs observed, amiodarone induced hyperthyroidism. Patient seemingly asymptomatic with recurrent atrial fibrillation which was prescribed in April 2021 when hospitalized with COVID and acute decompensated heart failure, chronically prescribed rivaroxaban (Xarelto) anticoagulation. Entresto has been on hold due to borderline blood pressures on presentation. Examination with chronic mild volume overload. Recommendations: * Amiodarone discontinued, RE: amiodarone induced hyperthyroidism * Increase metoprolol succinate to 150 mg in the AM and 100 mg in the PM * Proceed with rate control strategy * Continue anticoagulation - rivaroxaban (Xarelto) * Resume Entresto, furosemide, and spironolactone. * Recommend anemia workup * CHF instructions * Close outpatient cardiology follow-up with Mrs. Inocente DELONG Admission and Anticipated Discharge Date Admission Date: October 16, 2024 Supervising Physician Co-Signing Physician Notes Patient seen and examined, chart, telemetry reviewed. Assessment and plan as outlined above. Heart rates controlled on current therapies with adjustments as above. May see rise in heart rate asthma amiodarone formally tapers. Will need follow-up of heart rate as well as thyroid function CHF instructions discussed in detail with patient Subjective Patient seen and examined. Anxious for discharge. Feeling OK. No complaints. No palpitations, chest pain, unusual shortness of breath. Stable peripheral edema. No dizziness or near syncope. Telemetry: Atrial fibrillation, 80 to 110 bpm Review of Systems Review of Systems: Complete Review of Systems is as stated above, negative, or noncontributory Physical Exam Physical Exam: General: A&Ox3. NAD. HENT: Normocephalic. Atraumatic. Eyes: PER. Conjunctiva pink, sclera clear. Neck: No overt JVD Heart: Irregularly irregular at 90 bpm. Lungs: Clear. No wheeze. Abdomen: +BS. Soft. Nontender. No masses or organomegaly. Extremities: 1+ Pretibial edema. No clubbing. No cyanosis Limited neurological examination is without focal deficits. Pulses: radial=2/4, posterior tibial=1/4. Results & Data Vital Signs (Past 12 Hours) Vital Signs Temp Pulse Resp BP Pulse Ox O2 Del Method 10/17/24 10:55 36.4 C L 86 18 132/89 98 Room Air 10/17/24 07:05 36.7 C 87 17 136/90 97 Room Air 10/17/24 03:20 36.5 C 87 18 128/68 96 Room Air Laboratory Results CBC 10/17/24 Range/Units 09:39 WBC 7.47 (4.8-10.8) K/ul RBC 5.11 (4.70-6.10) M/uL Hgb 12.1 L (14.0-18.0) g/dl Hct 39.4 L (42.0-52.0) % Plt Count 282 (130-400) K/uL Neut # (Auto) 5.64 (1.40-6.50) K/uL Lymph # (Auto) 0.84 L (1.20-3.40) K/uL Coke # (Auto) 0.80 H (0.11-0.59) K/uL Eos # (Auto) 0.14 (0.00-0.50) K/uL Baso # (Auto) 0.02 (0.00-0.20) K/uL Comprehensive Metabolic Panel 10/17/24 Range/Units 09:39 Sodium 135 L (136-145) mmol/L Potassium 4.3 (3.5-5.1) mmol/L Chloride 100 (98-107) mmol/L Carbon Dioxide 28 (21-32) mmol/L BUN 23 (6-23) mg/dl Creatinine 1.03 D (0.6-1.4) mg/dl Glucose 196 H (70-99(Fasting)) mg/dl Calcium 9.5 (8.6-10.3) mg/dl Intake and Output 10/16/24 10/17/24 10/17/24 22:59 06:59 14:59 Intake Total 300 / 1460 400 / 1460 Balance 300 / 1460 400 / 1460 Intake: Oral 300 / 1460 400 / 1460 Other: # Unmeasured Voids 1 3 Weight 122.3 kg Weight Measurement Method Built in [facility]
[2024-10-17 14:48] VITALS: BP 141/85
== END 2024-10-17 15:08 | disposition home or self-care (01) ==
LOC: EDINP 23:55 → ED 23:55 → 2S 10-16 05:58

== ENCOUNTER 2024-11-06 18:19 | Inpatient (IN) ==
[2024-11-06 19:02] LABS: Basophils # (auto) 0.06 K/uL (0.00-0.20); Basophils % (auto) 0.6 %; Eosinophils % (auto) 1.9 %; Hematocrit (blood only) 41.3 % (42.0-52.0); Hemoglobin 12.3 g/dl (14.0-18.0); Immature Granulocytes # (auto) 0.06 K/uL (0.01-0.20); Immature Granulocytes % (auto) 0.6 %; Lymphocytes # (auto) 1.01 K/uL (1.20-3.40); Lymphocytes % (auto) 9.8 %; Mean Corpuscular Hemoglobin 22.7 pg (25.0-34.0); Mean Corpuscular Hgb Conc 29.8 g/dL (32.0-36.0); Mean Corpuscular Volume 76.3 fL (80.0-100.0); Mean Platelet Volume 10.1 fL (9.4-12.4); Monocytes # (auto) 1.49 K/uL (0.11-0.59); Monocytes % (auto) 14.5 %; Neutrophils # (auto) 7.45 K/uL (1.40-6.50); Neutrophils % (auto) 72.6 %; Platelet Count 269 K/uL (130-400); RDW Coefficient of Variation 18.3 % (11.5-14.5); RDW Standard Deviation 48.4 fL (36.4-46.3); Red Blood Count 5.41 M/uL (4.70-6.10); White Blood Count 10.27 K/ul (4.8-10.8)
--- NOTE | 2024-11-06 19:05 | Emergency Department Note ---
Impression & Plan Atrial fibrillation with RVR, Elevated troponin, Fluid overload, JOSHI (dyspnea on exertion), Hyperthyroidism ED Provider Note Provider: Dada Winn MD CHIEF COMPLAINT: Weakness, dyspnea on exertion, swelling HISTORY OF PRESENT ILLNESS: Patient is a 69-year-old gentleman significant past medical history for CAD with systolic heart failure, history of atrial fibrillation on Xarelto, and hypertension presenting here referred from the outpatient [facility] clinic. Patient was hospitalized here several weeks ago. Over the last week or 2 has had increased lower extremity edema weakness and dyspnea on exertion. No chest pain. No syncope or trauma. Last several days significant worsening. No fevers or significant sinus congestion or sore throat reported. A bit of a cough. No significant abdominal pain but some swelling of the lower legs and swelling to the lower abdomen. At the primary doctor's office was noted to have a blood pressure in the 80s and sent here for further care. Again denies falls. Does report over the last week or so he has had a bit of a rash on his arms and torso itchy. No new exposures or contacts or medications reported. PAST MEDICAL HISTORY: As noted above MEDICATIONS: Reviewed home medication list with the patient SOCIAL HISTORY: lives at home PHYSICAL EXAM: GENERAL: alert and oriented in no acute distress on stretcher Head: normocephalic and atraumatic EYES: No injection, discharge or icterus. NECK: Trachea midline. ENT: Mucous membranes pink and moist. LUNGS: Airway patent. No retractions. Breath sounds fine crackles diminished in the bases HEART: Irregular irregular rate and rhythm. No chest wall tenderness ABDOMEN: Soft and non-tender, without guarding or rebound. SKIN: Acyanotic, warm, dry, with a few scattered excoriations on the upper extremities chest and back without hives. Nikolsky negative. No sloughing skin or bulla noted. EXTREMITIES: Without swelling, tenderness or deformity NEUROLOGICAL: No focal deficits. No aphasia. No facial droop or slurred speech. Normal strength and tone in the extremities. Sensation to gross touch normal. Ambulatory. EK bpm atrial fibrillation with rapid ventricular response. No clear acute ST segment elevation or depression with the left axis and interventricular conduction delay. No ST segment depression. QTc 398. CONTINUOUS CARDIAC MONITORING: was ordered and showed a heart rate of 90s-110s bpm in atrial fibrillation Patient's laboratory studies and imaging reviewed. Differential includes Reactive airway disease, pneumonia, pneumothorax, COPD, CHF, infections, cardiac ischemia, pulmonary embolism, musculoskeletal, gastrointestinal, as well as other pathologies. IMPRESSION/MEDICAL DECISION MAKING: Patient atrial fibrillation. Borderline rate control upon arrival. Blood pressure low but better than reported in the outpatient office. Just above 100 systolic. Question if he is not tolerating his A-fib well. Was recently on amiodarone but discontinued based on prior notes due to possible thyroid interference. Not having significant URI symptoms but respiratory viral panel completed. Chest x-ray completed and per my review and interpretation shows bilateral trace effusions with little bit of right-sided pulmonary congestion. Low suspicion for PE with his Xarelto usage. Seem consistent with likely fluid overload. Nonspecific slight diffuse rash does not seem consistent with shingles, chickenpox, scabies, allergic reaction, or or cellulitis/impetigo. Denies any known exposure. Not having respiratory anaphylaxis symptoms. Blood work without significant anemia or significant leukocytosis. No significant electrolyte abnormalities. No significant renal dysfunction today. No transaminitis. Troponin somewhat elevated at 58 today compared to previous in the 30s. BNP elevated 911 but off of prior admission elevation of 1200. Given his normal renal function will give an additional IV dose of Lasix for diuresis. Will monitor blood pressure and heart rate and utilize small doses of metoprolol as needed for rate control. Discussed with him given his borderline rate control and blood pressures further monitoring here in the hospital. Respiratory viral panel does return negative. TSH still undetectably low but free T4 heading the wrong direction now mildly elevated 3.2. May also be contributing to his poor rate control and symptoms. DIAGNOSIS: A-fib RVR, fluid overload/CHF exacerbation DISPOSITION: Hospitalist will evaluate Patient was agreeable with this plan. Past Med/Surg History Problem List (Updated 11/06/24 @ 20:27 by Dada Winn M.D.) JOSHI (dyspnea on exertion) (Acute) Fluid overload (Acute) Elevated troponin (Acute) Mitral regurgitation Hyperthyroidism (Acute) Elevated brain natriuretic peptide (BNP) level (Acute) Elevated troponin (Acute) Atrial fibrillation with rapid ventricular response (Acute) Encounter for pre-operative examination Atrial fibrillation with RVR (Acute) Cardiac defibrillator in place (Chronic) Morbid obesity (Chronic) BMI 41.8 Chronic systolic congestive heart failure, NYHA class 2 (Chronic) Hyperlipidemia (Chronic) CAD (coronary artery disease) (Chronic) HTN (hypertension) (Chronic) Medical History Osteoarthritis Diabetes mellitus, type 2 On anticoagulant therapy xarelto daily Glaucoma SARS-CoV-2 positive hx of x2--04/2021 and 08/2021--no symptoms now Atrial fibrillation on xarelton/metoprolol--follows with Dr. Aldridge Acute HFrEF (heart failure with reduced ejection fraction) SOB (shortness of breath) Cardiac defibrillator in place Morbid obesity BMI 41.8 Chronic systolic congestive heart failure, NYHA class 2 JOSE DE JESUS (obstructive sleep apnea) cpap Hyperlipidemia HTN (hypertension) CAD (coronary artery disease) NICM (nonischemic cardiomyopathy) Surgical History Status post hardware removal History of open reduction and internal fixation (ORIF) procedure left ankle fx repair--hardware removed History of removal of cyst off knuckle History of prostate biopsy benign History of colonoscopy History of wisdom tooth extraction History of cardiac cath 2012 @ [place], [place]--no stents S/P ICD (internal cardiac defibrillator) procedure placed 04/26/19 Dr. Guevara @ [facility]--medtronic History of total right hip arthroplasty History of total left hip arthroplasty Family History Mother Stroke Father Coronary heart disease Other No family history of adverse response to anesthesia Social History Smoking Status: Never smoker Second Hand Exposure: No; Do You Dip or Chew Tobacco: No; Hx Alcohol Use: No Hx Substance Use: No Preferred Language: Irish Communication Ability: Effective Driver Merchandiser Required: No Beliefs That Will Affect Care: None Current Living Situation: Spouse Feels Safe at Home: Yes Assistive Devices: Glasses Allergies Allergies Allergy/AdvReac Type Severity Reaction Status Date / Time [id number] Reductase AdvReac Intermediate Joint Pain Verified 11/06/24 19:53 Inhibitor Home Meds Home Medications Medication Instructions Recorded Confirmed aspirin 81 mg tablet,delayed 81 mg PO QAM 01/05/21 11/06/24 release coQ10 (ubiquinol) 100 mg capsule 100 mg PO QAM 01/05/21 11/06/24 multivitamin 1 tab PO QAM 01/05/21 11/06/24 omega 1-pwc-oki-fish oil 1,200 mg 1 cap PO HS 01/05/21 11/06/24 (144 mg-216 mg) capsule (Fish Oil) cholecalciferol (vitamin D3) 50 50 mcg PO QAM 05/15/21 11/06/24 mcg (2,000 unit) tablet (Vitamin D3) latanoprost 0.005 % eye drops 1 drp OPB HS 05/15/21 11/06/24 metformin 500 mg tablet 500 mg PO BIDM 05/15/21 11/06/24 omeprazole 20 mg capsule,delayed 20 mg PO QAM 05/15/21 11/06/24 release brimonidine 0.2 %-timolol 0.5 % 1 drp OPR BID 12/22/22 11/06/24 eye drops rivaroxaban 20 mg tablet (Xarelto) 20 mg PO QDD 12/22/22 11/06/24 furosemide 20 mg tablet 20 mg PO QAM 01/15/23 11/06/24 sacubitril 24 mg-valsartan 26 mg 1 tab PO BID 09/14/23 11/06/24 tablet (Entresto) spironolactone 25 mg tablet 12.5 mg PO DAILY 09/14/23 11/06/24 benzonatate 100 mg capsule 100 mg PO TID PRN Cough 10/16/24 11/06/24 ciclopirox 8 % topical solution 1 applic topical HS 10/16/24 11/06/24 evolocumab 140 mg/mL subcutaneous 140 mg subcut .EVERY 14 DAYS 10/16/24 11/06/24 pen injector (Halima Cooper) semaglutide 2 mg/dose (8 mg/3 mL) 2 mg subcut WK 10/16/24 11/06/24 subcutaneous pen injector (Adam) Previous Rx's Medication Instructions Recorded metoprolol succinate 100 mg 100 mg PO BID #60 tabs 10/17/24 tablet,extended release 24 hr metoprolol succinate 50 mg 50 mg PO QAM #30 tabs 10/17/24 tablet,extended release 24 hr Results & Data (ED) Vital Signs Vital Signs - 24 hr 11/06/24 18:21 11/06/24 18:48 11/06/24 18:49 Temperature 36 C L Temperature Source Temporal Artery Scan Pulse Rate 108 H 116 H 106 H Pulse Rate [Apical] Pulse Rhythm Regular Pulse Rhythm [Apical] Pulse Strength Normal Pulse Strength [Apical] Respiratory Rate 20 20 Respiratory Effort / Characteristics Non-Labored Spontaneous Respiratory Depth Normal Respiratory Pattern Blood Pressure 113/81 Blood Pressure [Right Arm] Blood Pressure Mean 91 Blood Pressure Mean [Right Arm] Blood Pressure Position Sitting Blood Pressure Position [Right Arm] Pulse Oximetry 95 96 Oxygen Delivery Method Room Air Room Air Sepsis Recent Fever Within 48 Hours No Sepsis New/Unexplained Change in Mental Status N/A Sepsis Action Taken by Nursing No Action Required 11/06/24 20:00 11/06/24 20:00 Temperature Temperature Source Pulse Rate Pulse Rate [Apical] 94 H Pulse Rhythm Pulse Rhythm [Apical] Regular Pulse Strength Pulse Strength [Apical] Normal Respiratory Rate 18 Respiratory Effort / Characteristics Non-Labored Spontaneous Respiratory Depth Normal Respiratory Pattern Regular Blood Pressure Blood Pressure [Right Arm] 95/69 L Blood Pressure Mean Blood Pressure Mean [Right Arm] 77 Blood Pressure Position Blood Pressure Position [Right Arm] Sitting Pulse Oximetry 96 95 Oxygen Delivery Method Room Air Room Air Sepsis Recent Fever Within 48 Hours Sepsis New/Unexplained Change in Mental Status Sepsis Action Taken by Nursing Laboratory Data 11/06/24 18:33 11/06/24 18:33 Lab Results 11/06/24 11/06/24 11/06/24 Range/Units 18:33 18:34 Unknown WBC 10.27 (4.8-10.8) K/ul RBC 5.41 (4.70-6.10) M/uL Hgb 12.3 L (14.0-18.0) g/dl Hct 41.3 L (42.0-52.0) % MCV 76.3 L (80.0-100.0) fL MCH 22.7 L (25.0-34.0) pg MCHC 29.8 L (32.0-36.0) g/dL RDW Std Deviation 48.4 H (36.4-46.3) fL RDW Coeff of Jose 18.3 H (11.5-14.5) % Plt Count 269 (130-400) K/uL MPV 10.1 (9.4-12.4) fL Immature Gran % (Auto) 0.6 % Neut % (Auto) 72.6 % Lymph % (Auto) 9.8 % [place] % (Auto) 14.5 % Eos % (Auto) 1.9 % Baso % (Auto) 0.6 % Neut # (Auto) 7.45 H (1.40-6.50) K/uL Lymph # (Auto) 1.01 L (1.20-3.40) K/uL [place] # (Auto) 1.49 H (0.11-0.59) K/uL Eos # (Auto) 0.20 (0.00-0.50) K/uL Baso # (Auto) 0.06 (0.00-0.20) K/uL Immature Gran # (Auto) 0.06 (0.01-0.20) K/uL PT 12.8 H (9.0-12.0) Seconds INR 1.2 H (0.9-1.1) APTT 28 (21-31) Seconds PTT Ratio 1.0 Sodium 135 L (136-145) mmol/L Potassium 4.5 (3.5-5.1) mmol/L Chloride 100 (98-107) mmol/L Carbon Dioxide 27 (21-32) mmol/L Anion Gap 8 (3-11) BUN 30 H (6-23) mg/dl Creatinine 1.22 (0.6-1.4) mg/dl Est Cr Clr Drug Dosing Not Reportable eGFR 64.58 BUN/Creatinine Ratio 24.6 H (10-20) Glucose 216 H (70-99(Fasting)) mg/dl Calcium 9.8 (8.6-10.3) mg/dl Total Bilirubin 0.8 (0.2-1.0) mg/dl AST 29 (13-39) U/L ALT 38 (7-52) U/L Alkaline Phosphatase 70 (34-104) U/L Troponin I High Sens 58.7 H* (0-20) pg/ml B-Natriuretic Peptide 911 H (0-100) pg/ml Total Protein 6.8 (6.0-8.3) gm/dl Albumin 3.9 (3.4-5.0) gm/dl Globulin 2.9 (2.5-4.0) gm/dl Albumin/Globulin Ratio 1.3 (0.9-2) TSH < 0.010 L (0.300-4.500) uIu/ml Free T4 3.21 H (0.61-1.60) ng/dl Adenovirus (PCR) Not Detected (NotDetected) B. pertussis DNA (PCR) Not Detected (NotDetected) B.parapertussis DNA PCR Not Detected (NotDetected) C. pneumoniae DNA (PCR) Not Detected (NotDetected) Coronavirus OC43 (PCR) Not Detected (NotDetected) Coronavirus HKU1 (PCR) Not Detected (NotDetected) Coronavirus 229E (PCR) Not Detected (NotDetected) SARS-CoV-2 (PCR) Not Detected (NotDetected) Coronavirus NL63 (PCR) Not Detected (NotDetected) Human Metapneumovir PCR Not Detected (NotDetected) Influenza Type A (PCR) Not Detected (NotDetected) Influenza Type B (PCR) Not Detected (NotDetected) M. pneumoniae (PCR) Not Detected (NotDetected) Parainfluenza 1 (PCR) Not Detected (NotDetected) Parainfluenza 2 (PCR) Not Detected (NotDetected) Parainfluenza 3 (PCR) Not Detected (NotDetected) Parainfluenza 4 (PCR) Not Detected (NotDetected) RSV (PCR) Not Detected (NotDetected) Entero/Rhino (PCR) Not Detected (NotDetected) Administered Medications Discontinued Medications Furosemide (Furosemide Inj 20 Mg/2 Ml Vial) 20 mg IV ONE ONE Stop: 11/06/24 19:23 Last Admin: 11/06/24 19:56 Dose: 20 mg Documented By: IDD Metoprolol Tartrate (Metoprolol Tartrate 1 Mg/Ml Vial) 2.5 mg IV NOW STA Stop: 11/06/24 19:23 Last Admin: 11/06/24 20:23 Dose: Not Given Documented By: IDD Imaging Data Radiologist's Impression: Chest X-Ray 11/06/24 18:26 EXAM: XR chest 1V not portable CLINICAL HISTORY: Chest pain, nonspecific TECHNIQUE: An X-ray image of the chest is obtained in AP projection. COMPARISON: Last study on 10/15/2024. FINDINGS: Pulmonary Parenchyma: Prominent bronchovascular markings both lungs with mild central peribronchial wall thickening with right lower lung zone paracradiac alveolar opacities. No evidence of collapse. No pulmonary nodules are identified. BVeiling of left costo-phrenic angle. No evidence of right pleural effusion or pleural thickening. Heart and Mediastinum: Prominent hilar vascular shadows. Enlarged cardiac size. Prominent aortic arch. Dilated right descending pulmonary artery shadow. No mediastinal widening or masses. No hilar or mediastinal lymphadenopathy. Bony Thorax: Bony thorax appears intact without fractures or deformities. Cardiac pacemaker is seen along left chest wall. Soft Tissues: Soft tissues overlying the chest wall are unremarkable. IMPRESSION: Prominent bronchovascular markings both lungs with mild central peribronchial wall thickening and right lower lung zone paracradiac alveolar opacities, possibility of right basal lung infiltrates.Clinical correlation and follow-up by X-ray is advised.(new findings) Stable cardiomegaly and bilateral hilar vascular congestion. Electronically signed by Jr Agarwal 11-06-2024 8:22 PM Discharge Plan Visit Data Chief Complaint: Referred by Doctor Stated Complaint: REF BY DOC, HYPOTENSION,LIGHT HEADED ED Provider: Dada Winn Discharge Problem: Atrial fibrillation with RVR, Elevated troponin, Fluid overload, JOSHI (dyspnea on exertion), Hyperthyroidism Patient Disposition: Being Evaluated by Hospitalist Forms Stand Alone Forms: My [facility] [place] Prescriptions Prescriptions: No Action multivitamin Tablet 1 tab PO QAM aspirin 81 mg Tablet,Delayed Release (Dr/Ec) 81 mg PO QAM omega 4-dol-sln-fish oil [Fish Oil] 1,200 (144-216) mg Capsule 1 cap PO HS coQ10 (ubiquinol) 100 mg Capsule 100 mg PO QAM brimonidine-timolol 0.2-0.5 % drops 1 drp OPR BID Xarelto 20 mg tablet 20 mg PO QDD furosemide 20 mg Tablet 20 mg PO QAM omeprazole 20 mg capsule,delayed release(DR/EC) 20 mg PO QAM metformin 500 mg tablet 500 mg PO BIDM Rx Instructions: take with morning and evening meal latanoprost 0.005 % drops 1 drp OPB HS cholecalciferol (vitamin D3) [Vitamin D3] 50 mcg (2,000 unit) Tablet 50 mcg PO QAM spironolactone 25 mg Tablet 12.5 mg PO DAILY Entresto 24-26 mg Tablet 1 tab PO BID Halima Cooper 140 mg/mL pen injector 140 mg SUBCUT .EVERY 14 DAYS Patient Comments: Takes and of each month benzonatate 100 mg capsule 100 mg PO TID PRN (Reason: Cough) Ozempic 2 mg/dose (8 mg/3 mL) pen injector 2 mg SUBCUT WK Rx Instructions: sundays ciclopirox 8 % Solution 1 applic TOPICAL HS metoprolol succinate 50 mg tablet extended release 24 hr 50 mg PO QAM Qty: 30 0RF Rx Instructions: Take the 50mg tablet with the metoprolol succinate 100mg tablet EVERYDAY ONLY IN THE MORNINGS for a total of metoprolol succinate 150mg in the mornings only. metoprolol succinate 100 mg tablet extended release 24 hr 100 mg PO BID Qty: 60 0RF Referrals Referrals: Jazmine Anguiano MD [Primary Care Provider] -
[2024-11-06 19:07] LABS: Alanine Aminotransferase 38 U/L (7-52); Albumin Globulin Ratio 1.3 (0.9-2); Albumin Level 3.9 gm/dl (3.4-5.0); Alkaline Phosphatase 70 U/L (34-104); Anion Gap 8 (3-11); Aspartate Aminotransferase 29 U/L (13-39); BUN Creatinine Ratio 24.6 (10-20); Bilirubin,Total 0.8 mg/dl (0.2-1.0); Blood Urea Nitrogen 30 mg/dl (6-23); Calcium 9.8 mg/dl (8.6-10.3); Carbon Dioxide 27 mmol/L (21-32); Chloride 100 mmol/L (98-107); Globulin 2.9 gm/dl (2.5-4.0); Glucose 216 mg/dl (70-99(Fasting)); Potassium 4.5 mmol/L (3.5-5.1); Sodium 135 mmol/L (136-145); Total Protein 6.8 gm/dl (6.0-8.3)
[2024-11-06 19:18] LABS: INR 1.2 (0.9-1.1); Partial Thromboplastin Time 28 Seconds (21-31); Prothrombin Time 12.8 Seconds (9.0-12.0)
[2024-11-06 19:37] LABS: Adenovirus PCR Not Detected (NotDetected); Bordetella parapertussis PCR Not Detected (NotDetected); Bordetella pertussis PCR Not Detected (NotDetected); Chlamydia pneumoniae PCR Not Detected (NotDetected); Coronavirus 229E PCR Not Detected (NotDetected); Coronavirus CoV-2 (COVID19)PCR Not Detected (NotDetected); Coronavirus HKU1 PCR Not Detected (NotDetected); Coronavirus NL63 PCR Not Detected (NotDetected); Coronavirus OC43PCR Not Detected (NotDetected); Human Metapneumovirus PCR Not Detected (NotDetected); Influenza A PCR Not Detected (NotDetected); Influenza B PCR Not Detected (NotDetected); Mycoplasma pneumoniae PCR Not Detected (NotDetected); Parainfluenza Virus 1 PCR Not Detected (NotDetected); Parainfluenza Virus 2 PCR Not Detected (NotDetected); Parainfluenza Virus 3 PCR Not Detected (NotDetected); Parainfluenza Virus 4 PCR Not Detected (NotDetected); Respiratory Syncytial VirusPCR Not Detected (NotDetected); Rhinovirus/Enterovirus PCR Not Detected (NotDetected)
[2024-11-06 19:50] LABS: Thyroid Stimulating Hormone < 0.010 uIu/ml (0.300-4.500)
[2024-11-06 19:51] LABS: Troponin I High Sensitivity 58.7 pg/ml (0-20)
[2024-11-06] MEDS: FUROSEMIDE INJ 20 MG/2 ML VIAL IV ONE (19:56)
[2024-11-06] MEDS: METOPROLOL TARTRATE 1 MG/ML VIAL IV STA (19:56)
--- NOTE | 2024-11-06 20:23 | XRay Report ---
EXAM: XR chest 1V not portable CLINICAL HISTORY: Chest pain, nonspecific TECHNIQUE: An X-ray image of the chest is obtained in AP projection. COMPARISON: Last study on 10/15/2024. FINDINGS: Pulmonary Parenchyma: Prominent bronchovascular markings both lungs with mild central peribronchial wall thickening with right lower lung zone paracradiac alveolar opacities. No evidence of collapse. No pulmonary nodules are identified. BVeiling of left costo-phrenic angle. No evidence of right pleural effusion or pleural thickening. Heart and Mediastinum: Prominent hilar vascular shadows. Enlarged cardiac size. Prominent aortic arch. Dilated right descending pulmonary artery shadow. No mediastinal widening or masses. No hilar or mediastinal lymphadenopathy. Bony Thorax: Bony thorax appears intact without fractures or deformities. Cardiac pacemaker is seen along left chest wall. Soft Tissues: Soft tissues overlying the chest wall are unremarkable. IMPRESSION: Prominent bronchovascular markings both lungs with mild central peribronchial wall thickening and right lower lung zone paracradiac alveolar opacities, possibility of right basal lung infiltrates.Clinical correlation and follow-up by X-ray is advised.(new findings) Stable cardiomegaly and bilateral hilar vascular congestion. Electronically signed by Jr Agarwal 11-06-2024 8:22 PM
[2024-11-06 20:25] LABS: T4 Free Thyroxine 3.21 ng/dl (0.61-1.60)
--- NOTE | 2024-11-06 23:21 | History & Physical Report ---
Date of Service November 06, 2024 Assessment & Plan (1) Acute systolic CHF (congestive heart failure): Plan: 69-year-old male with past medical history significant for type 2 diabetes, hyperlipidemia, obstructive sleep apnea, nonischemic cardiomyopathy status post ICD, moderate mitral regurgitation, aortic root enlargement, paroxysmal atrial fibrillation, history of CAD, hypertension, primary open-angle glaucoma both eyes mild stage, presents with worsening lower extremity edema. Patient states in the nighttime when sleeping is having cough. While resting is okay but with the exertion is having dyspnea. Denies chest pain. No fevers. No headache. No runny nose or sore throat. No headaches. No abdominal pain. No nausea. Normal bowel and bladder movements. In the ER he received a dose of Lasix and a dose of metoprolol. He states after Lasix he micturated and thinks swelling in the lower extremities coming down. Patient also developed macular rash on upper extremities and back which is itchy since last 2 weeks. No recent new medications. Acute systolic CHF Nonischemic cardiomyopathy Echo done 10/12/2024 shows EF of 25 to 30%. Global hypokinesis of left ventricle. Right ventricle systolic pressure is moderately high at 50 to 60 mmHg Received IV Lasix 20 mg in the ER Will continue IV Lasix 20 mg daily. Continue home spironolactone. Continue home metoprolol succinate and Entresto with holding parameters. Telemetry Daily weights and I's and O's Will also follow CT chest for any underlying pneumonia Cardiology consulted in a.m. for further recommendations. Atrial fibrillation On metoprolol succinate and Xarelto Amiodarone was stopped last admission because of abnormal thyroid function Obstructive sleep apnea On CPAP nightly Hyperthyroidism Thought to be from amiodarone which is stopped now Follow repeat labs Can discuss with Endo Type 2 diabetes Hold metformin Sliding scale Will monitor Hypertension Metoprolol succinate, Entresto with holding parameters Also on diuretics GERD On omeprazole Nonocclusive CAD On Repatha, beta-marcella and aspirin Rash Macular rash on extremities and back Benadryl cream for now Follow-up with PCP and dermatology DVT prophylaxis On Xarelto Disposition Telemetry Full code. History of Present Illness Chief Complaint: CHF Primary Care Provider: Jazmine Anguiano MD 69-year-old male with past medical history significant for type 2 diabetes, hyperlipidemia, obstructive sleep apnea, nonischemic cardiomyopathy status post ICD, moderate mitral regurgitation, aortic root enlargement, paroxysmal atrial fibrillation, history of CAD, hypertension, primary open-angle glaucoma both eyes mild stage, presents with worsening lower extremity edema. Patient states in the nighttime when sleeping is having cough. While resting is okay but with the exertion is having dyspnea. Denies chest pain. No fevers. No headache. No runny nose or sore throat. No headaches. No abdominal pain. No nausea. Normal bowel and bladder movements. In the ER he received a dose of Lasix and a dose of metoprolol. He states after Lasix he micturated and thinks swelling in the lower extremities coming down. Patient also developed macular rash on upper extremities and back which is itchy since last 2 weeks. No recent new med ications. Past medical history. As mentioned above Past surgical history. Colonoscopy. Bilateral total hip replacement. Social history. . Quit smoking 1995. Alcohol 2-3 drinks a week. No drug use. Family history. Half brother had colon cancer. Father had asthma. Mother had diabetes, heart disease and CVA. Allergies Allergy/AdvReac Type Severity Reaction Status Date / Time Jvpxagu-UIP-DmA Reductase AdvReac Intermediate Joint Pain Verified 11/06/24 19:53 Inhibitor Home Medications Medication Instructions Recorded Confirmed Type aspirin 81 mg tablet,delayed 81 mg PO QAM 01/05/21 11/06/24 History release coQ10 (ubiquinol) 100 mg capsule 100 mg PO QAM 01/05/21 11/06/24 History multivitamin 1 tab PO QAM 01/05/21 11/06/24 History omega 0-ovc-yjf-fish oil 1,200 mg 1 cap PO HS 01/05/21 11/06/24 History (144 mg-216 mg) capsule (Fish Oil) cholecalciferol (vitamin D3) 50 50 mcg PO QAM 05/15/21 11/06/24 History mcg (2,000 unit) tablet (Vitamin D3) latanoprost 0.005 % eye drops 1 drp OPB HS 05/15/21 11/06/24 History metformin 500 mg tablet 500 mg PO BIDM 05/15/21 11/06/24 History omeprazole 20 mg capsule,delayed 20 mg PO QAM 05/15/21 11/06/24 History release brimonidine 0.2 %-timolol 0.5 % 1 drp OPR BID 12/22/22 11/06/24 History eye drops rivaroxaban 20 mg tablet (Xarelto) 20 mg PO QDD 12/22/22 11/06/24 History furosemide 20 mg tablet 20 mg PO QAM 01/15/23 11/06/24 History sacubitril 24 mg-valsartan 26 mg 1 tab PO BID 09/14/23 11/06/24 History tablet (Entresto) spironolactone 25 mg tablet 12.5 mg PO DAILY 09/14/23 11/06/24 History benzonatate 100 mg capsule 100 mg PO TID PRN Cough 10/16/24 11/06/24 History ciclopirox 8 % topical solution 1 applic topical HS 10/16/24 11/06/24 History evolocumab 140 mg/mL subcutaneous 140 mg subcut .EVERY 14 DAYS 10/16/24 11/06/24 History pen injector (Repatha SureClick) semaglutide 2 mg/dose (8 mg/3 mL) 2 mg subcut WK 10/16/24 11/06/24 History subcutaneous pen injector (Ozempic) metoprolol succinate 100 mg 100 mg PO BID #60 tabs 10/17/24 11/06/24 Rx tablet,extended release 24 hr metoprolol succinate 50 mg 50 mg PO QAM #30 tabs 10/17/24 11/06/24 Rx tablet,extended release 24 hr Past Med/Surg History Problem List (Updated 11/06/24 @ 23:29 by Rigo Park MD) Acute systolic CHF (congestive heart failure) JOSHI (dyspnea on exertion) (Acute) Fluid overload (Acute) Elevated troponin (Acute) Mitral regurgitation Hyperthyroidism (Acute) Elevated brain natriuretic peptide (BNP) level (Acute) Elevated troponin (Acute) Atrial fibrillation with rapid ventricular response (Acute) Encounter for pre-operative examination Atrial fibrillation with RVR (Acute) Cardiac defibrillator in place (Chronic) Morbid obesity (Chronic) BMI 41.8 Chronic systolic congestive heart failure, NYHA class 2 (Chronic) Hyperlipidemia (Chronic) CAD (coronary artery disease) (Chronic) HTN (hypertension) (Chronic) Medical History Osteoarthritis Diabetes mellitus, type 2 On anticoagulant therapy xarelto daily Glaucoma SARS-CoV-2 positive hx of x2--04/2021 and 08/2021--no symptoms now Atrial fibrillation on xarelton/metoprolol--follows with Dr. Aldridge Acute HFrEF (heart failure with reduced ejection fraction) SOB (shortness of breath) Cardiac defibrillator in place Morbid obesity BMI 41.8 Chronic systolic congestive heart failure, NYHA class 2 JOSE DE JESUS (obstructive sleep apnea) cpap Hyperlipidemia HTN (hypertension) CAD (coronary artery disease) NICM (nonischemic cardiomyopathy) Surgical History Status post hardware removal History of open reduction and internal fixation (ORIF) procedure left ankle fx repair--hardware removed History of removal of cyst off knuckle History of prostate biopsy benign History of colonoscopy History of wisdom tooth extraction History of cardiac cath 2012 @ [place], [place]--no stents S/P ICD (internal cardiac defibrillator) procedure placed 04/26/19 Dr. Guevara @ [facility]--medtronic History of total right hip arthroplasty History of total left hip arthroplasty Family History Mother Stroke Father Coronary heart disease Other No family history of adverse response to anesthesia Social History Smoking Status: Former smoker Second Hand Exposure: No; Do You Dip or Chew Tobacco: No; Tobacco Cessation Education Requested by Patient: No Hx Alcohol Use: No Hx Substance Use: No Preferred Language: Telugu Communication Ability: Effective Marine Mechanic Required: No Beliefs That Will Affect Care: None Current Living Situation: Spouse Other Information That Helps Us Care for You: No Feels Safe at Home: Yes Safety Concerns: Feels Safe At This Time Assistive Devices: None Review of Systems Review of Systems: All systems reviewed & are unremarkable except as noted in HPI & below Physical Exam Physical Exam: General- Not in distress Head- atraumatic Eyes- PERRL. ENT- oropharynx clear Neck- supple, no JVD. Lungs- clear to auscultation no wheezing or crackles Heart- regular rhythm; no murmur, no gallop. Abdomen- normal bowel sounds, soft, nontender, no distension Extremities- b/l lower ext edema present. no erythema seen Neuro- alert, oriented PERRL, no facial palsy; no dysarthria; moves extremities. Skin- macular rash seen on upper extremities and back Results & Data Results & Data Vital Signs (Past 12 Hours) Vital Signs Temp Pulse Pulse Resp BP BP Pulse Ox 11/06/24 22:58 119 H 11/06/24 22:00 109 H 18 92/72 L 96 11/06/24 20:00 94 H 18 95/69 L 95 11/06/24 20:00 96 11/06/24 18:49 106 H 20 96 11/06/24 18:48 116 H 11/06/24 18:21 36 C L 108 H 20 113/81 95 O2 Del Method 11/06/24 22:58 11/06/24 22:00 Room Air 11/06/24 20:00 Room Air 11/06/24 20:00 Room Air 11/06/24 18:49 Room Air 11/06/24 18:48 11/06/24 18:21 Room Air Diagnostic Findings Laboratory Results WBC 10.27 K/ul (4.8-10.8) 11/06/24 18:33 RBC 5.41 M/uL (4.70-6.10) 11/06/24 18:33 Hgb 12.3 g/dl (14.0-18.0) L 11/06/24 18:33 Hct 41.3 % (42.0-52.0) L 11/06/24 18:33 MCV 76.3 fL (80.0-100.0) L 11/06/24 18:33 MCH 22.7 pg (25.0-34.0) L 11/06/24 18:33 MCHC 29.8 g/dL (32.0-36.0) L 11/06/24 18:33 RDW Std Deviation 48.4 fL (36.4-46.3) H 11/06/24 18:33 RDW Coeff of Jose 18.3 % (11.5-14.5) H 11/06/24 18:33 Plt Count 269 K/uL (130-400) 11/06/24 18:33 MPV 10.1 fL (9.4-12.4) 11/06/24 18:33 Immature Gran % (Auto) 0.6 % 11/06/24 18:33 Neut % (Auto) 72.6 % 11/06/24 18:33 Lymph % (Auto) 9.8 % 11/06/24 18:33 [place] % (Auto) 14.5 % 11/06/24 18:33 Eos % (Auto) 1.9 % 11/06/24 18:33 Baso % (Auto) 0.6 % 11/06/24 18:33 Neut # (Auto) 7.45 K/uL (1.40-6.50) H 11/06/24 18:33 Lymph # (Auto) 1.01 K/uL (1.20-3.40) L 11/06/24 18:33 [place] # (Auto) 1.49 K/uL (0.11-0.59) H 11/06/24 18:33 Eos # (Auto) 0.20 K/uL (0.00-0.50) 11/06/24 18:33 Baso # (Auto) 0.06 K/uL (0.00-0.20) 11/06/24 18: Immature Gran # (Auto) 0.06 K/uL (0.01-0.20) 11/06/24 18:33 PT 12.8 Seconds (9.0-12.0) H 11/06/24 18:33 INR 1.2 (0.9-1.1) H 11/06/24 18:33 APTT 28 Seconds (21-31) 11/06/24 18:33 PTT Ratio 1.0 11/06/24 18:33 Sodium 135 mmol/L (136-145) L 11/06/24 18:33 Potassium 4.5 mmol/L (3.5-5.1) 11/06/24 18:33 Chloride 100 mmol/L (98-107) 11/06/24 18:33 Carbon Dioxide 27 mmol/L (21-32) 11/06/24 18:33 Anion Gap 8 (3-11) 11/06/24 18:33 BUN 30 mg/dl (6-23) H 11/06/24 18:33 Creatinine 1.22 mg/dl (0.6-1.4) 11/06/24 18:33 Est Cr Clr Drug Dosing Not Reportable 11/06/24 18:33 eGFR 64.58 11/06/24 18:33 BUN/Creatinine Ratio 24.6 (10-20) H 11/06/24 18:33 Glucose 216 mg/dl (70-99(Fasting)) H 11/06/24 18:33 Calcium 9.8 mg/dl (8.6-10.3) 11/06/24 18:33 Total Bilirubin 0.8 mg/dl (0.2-1.0) 11/06/24 18:33 AST 29 U/L (13-39) 11/06/24 18:33 ALT 38 U/L (7-52) 11/06/24 18:33 Alkaline Phosphatase 70 U/L (34-104) 11/06/24 18:33 Troponin I High Sens 56.9 pg/ml (0-20) H* 11/06/24 21:17 B-Natriuretic Peptide 911 pg/ml (0-100) H 11/06/24 18:34 Total Protein 6.8 gm/dl (6.0-8.3) 11/06/24 18:33 Albumin 3.9 gm/dl (3.4-5.0) 11/06/24 18:33 Globulin 2.9 gm/dl (2.5-4.0) 11/06/24 18:33 Albumin/Globulin Ratio 1.3 (0.9-2) 11/06/24 18:33 TSH < 0.010 uIu/ml (0.300-4.500) L 11/06/24 18:33 Free T4 3.21 ng/dl (0.61-1.60) H 11/06/24 18:33 Adenovirus (PCR) Not Detected (NotDetected) 11/06/24 Unknown B. pertussis DNA (PCR) Not Detected (NotDetected) 11/06/24 Unknown B.parapertussis DNA PCR Not Detected (NotDetected) 11/06/24 Unknown C. pneumoniae DNA (PCR) Not Detected (NotDetected) 11/06/24 Unknown Coronavirus OC43 (PCR) Not Detected (NotDetected) 11/06/24 Unknown Coronavirus HKU1 (PCR) Not Detected (NotDetected) 11/06/24 Unknown Coronavirus 229E (PCR) Not Detected (NotDetected) 11/06/24 Unknown SARS-CoV-2 (PCR) Not Detected (NotDetected) 11/06/24 Unknown Coronavirus NL63 (PCR) Not Detected (NotDetected) 11/06/24 Unknown Human Metapneumovir PCR Not Detected (NotDetected) 11/06/24 Unknown Influenza Type A (PCR) Not Detected (NotDetected) 11/06/24 Unknown Influenza Type B (PCR) Not Detected (NotDetected) 11/06/24 Unknown M. pneumoniae (PCR) Not Detected (NotDetected) 11/06/24 Unknown Parainfluenza 1 (PCR) Not Detected (NotDetected) 11/06/24 Unknown Parainfluenza 2 (PCR) Not Detected (NotDetected) 11/06/24 Unknown Parainfluenza 3 (PCR) Not Detected (NotDetected) 11/06/24 Unknown Parainfluenza 4 (PCR) Not Detected (NotDetected) 11/06/24 Unknown RSV (PCR) Not Detected (NotDetected) 11/06/24 Unknown Entero/Rhino (PCR) Not Detected (NotDetected) 11/06/24 Unknown Impressions Chest X-Ray 11/06/24 18:26 EXAM: XR chest 1V not portable CLINICAL HISTORY: Chest pain, nonspecific TECHNIQUE: An X-ray image of the chest is obtained in AP projection. COMPARISON: Last study on 10/15/2024. FINDINGS: Pulmonary Parenchyma: Prominent bronchovascular markings both lungs with mild central peribronchial wall thickening with right lower lung zone paracradiac alveolar opacities. No evidence of collapse. No pulmonary nodules are identified. BVeiling of left costo-phrenic angle. No evidence of right pleural effusion or pleural thickening. Heart and Mediastinum: Prominent hilar vascular shadows. Enlarged cardiac size. Prominent aortic arch. Dilated right descending pulmonary artery shadow. No mediastinal widening or masses. No hilar or mediastinal lymphadenopathy. Bony Thorax: Bony thorax appears intact without fractures or deformities. Cardiac pacemaker is seen along left chest wall. Soft Tissues: Soft tissues overlying the chest wall are unremarkable. IMPRESSION: Prominent bronchovascular markings both lungs with mild central peribronchial wall thickening and right lower lung zone paracradiac alveolar opacities, possibility of right basal lung infiltrates.Clinical correlation and follow-up by X-ray is advised.(new findings) Stable cardiomegaly and bilateral hilar vascular congestion. Electronically signed by Jr Agarwal 11-06-2024 8:22 PM ECG Additional Comments: EKG A-fib with rapid ventricular response with PVCs with rate of 106. Left axis deviation. Code Status & VTE Plan VTE Prophylaxis Plan VTE Prophylaxis will be ordered: Yes
[2024-11-07] MEDS: RIVAROXABAN 20 MG TAB PO STA (00:01)
[2024-11-07] MEDS: diphenhydrAMINE 2%/ZINC 0.1% CREAM 28.4GM TUBE EXT SCH (00:32)
[2024-11-07] MEDS ORDERED: GLUCAGON FOR INJ 1 MG VIAL SQ PRN (01:31)
[2024-11-07] MEDS ORDERED: CARBOHYDRATES FOR HYPOGLYCEMIA PO PRN (01:31)
[2024-11-07] MEDS ORDERED: GLUCOSE 10 TAB/TUBE PO PRN (01:31)
[2024-11-07] MEDS ORDERED: GLUCOSE 40% GEL 15 GM TUBE PO PRN (01:31)
[2024-11-07] MEDS ORDERED: BENZONATATE 100 MG CAPSULE PO PRN (01:31)
[2024-11-07] MEDS ORDERED: POLYETHYLENE (MIRALAX) 17 GM PACK PO PRN (01:31)
[2024-11-07] MEDS ORDERED: DEXTROSE 50% 50 ML SYRINGE IV PRN (01:31)
[2024-11-07] MEDS ORDERED: NITROGLYCERIN SL 0.4 MG/TAB TAB SL PRN (01:31)
--- NOTE | 2024-11-07 02:47 | CT Scan Report ---
EXAM: CT chest diagnostic wo con CLINICAL HISTORY: infiltrates? cough TECHNIQUE: Contiguous axial images were obtained from the neck base through the upper abdomen without contrast. In addition, sagittal and coronal reconstructions were performed to potentially increase the sensitivity for the detection of disease. CT scan was performed according to ALARA (as low as reasonable achievable). COMPARISON: None. FINDINGS: The lungs are clear, with no focal areas of consolidation. No pulmonary nodules are seen. The central airways are patent. There are no pleural effusions. No pneumothorax is seen. Evaluation of the mediastinum and alejandrina is limited due to the lack of intravenous contrast. No axillary or mediastinal adenopathy is identified. The thyroid is unremarkable. Mild cardiomegaly. Mild dilatation of pulmonary artery measuring up to 3.7 cm , likely representing pulmonary arterial hypertension. The aorta normal size and configuration. There are coronary artery and aortic atherosclerotic calcifications. No pericardial effusion is identified. Imaged portions of the upper abdomen are unremarkable. No aggressive appearing osseous lesions are identified. IMPRESSION: 1. Mild cardiomegaly. 2. Mild dilatation of pulmonary artery, likely representing pulmonary arterial hypertension. Suggested clinical and 2D echo correlation as clinically indicated. Electronically signed by Evin Amador 11-07-2024 02:46 AM
--- OUTSIDE RECORDS SUMMARY | 2024-11-07 04:58 | External Medical Summary | Summary of Care ---
Author Name Unknown Organization [facility] Address [address] [place] [address] Phone [phone] Care Team Providers Care Concrete Buster Operator Name Role Phone Jazmine Anguiano MD Primary Care Provider Reason for Referral * Medication Prior Authorization - Closed Specialty Diagnoses / Procedures Referred By Contac t Referred To Contact Diagnoses Bronchitis, complicated Jerilyn Carter MD [address] [place] [address] Phone: tel: fax: Referral ID Status Reason Start Date Expiration Date Visits Re quested Visits Authorized [id number] Closed [id number] Reason for Visit * Reason Onset Date Comments medication change 10/18/2024 Encounter Details Date Type Department Care Team (Late st Contact Info) Description 10/18/2024 Telephone General Internal Medicine [facility] [place] [address] [place] [id number] Jerilyn Carter MD [address] [place] [id number] medication change Allergies Active Allergy Reactions Criticality Noted Date Comments Statins 10/15/2022 Joint pain documented as of this encounter (statuses as of 11/03/2024) Medications Cholecalciferol (VITAMIN D3) 2000 units Tablet Take 1 Tablet by mouth in the morning. Active Multiple Vitamins-Minerals (MULTIVITAMIN ADULT) TABS Take by mouth. Act enedina Coenzyme Q10 (CO Q 10) 100 MG CAPS Take by mouth. Active Latanoprost 0.005 % Ophthalmic Solution (Xalatan) Instill 1 Drop into both eyes at bedtime. 021 Active OneTouch Verio w/Device KitIndications:Ty pe 2 diabetes mellitus with hemoglobin A1c goal of less than 7.0% ([facility]) Use up to 4 times a day E11.9 1 Kit 021 Active Aspirin 81 MG Oral Tablet Delayed Release Take 1 Tablet by mouth in the morning. Active [place]-3 Fish Oil 1200 MG Oral Capsule Take 1 Cap by mouth daily. Active Brimonidine Tartrate-Timolol 0.2-0.5 % Ophthalmic Solution (Combigan) Instill 1 Drop into both eyes in the morning and 1 Drop before bedtime. Active OneTouch Verio In Vitro Strip (Glucose Blood)Indications :Type 2 diabetes mellitus with hemoglobin A1c goal of less than 7.0% ([facility]) Use up to 4 times a day [...] for Dizziness. 30 Tablet 1 023 Active Entresto 24-26 MG Oral Tablet (sacubitril-valsa rtan 24-26 mg per tab)Indications:N onischemic cardiomyopathy (HCC) TAKE 1 TABLET BY MOUTH TWICE A DAY 180 Tablet 3 024 Active Repatha SureClick 140 MG/ML Subcutaneous Solution Auto-injector (evolocumab) Inject 140 mg under the skin every 14 days. Remove from refrigerator 30 minutes prior to injection. 6 mL 3 10/18/19 25 10:28 AM EST 024 Active CPAP every night at bedtime. Active Kogpjyr-Etrsfi-Mt ell Pertussis 5-2.5-18.5 LF-MCG/0.5 Suspension Prefilled Syringe (Boostrix) Inject into a large muscle. 0.5 mL 024 Active metFORMIN HCl 500 MG Oral Tablet (Glucophage)Indic ations:Type 2 diabetes mellitus with hemoglobin A1c goal of less than 7.0% (HCC) TAKE 1 TABLET BY MOUTH TWICE A DAY WITH BREAKFAST AND DINNER 180 Tablet 2 024 Active Omeprazole 20 MG Oral Capsule Delayed Release (PriLOSEC)Indicat ions:Nonischemic cardiomyopathy (HCC) TAKE 1 CAPSULE BY MOUTH EVERY DAY 90 Capsule 3 024 Active Ozempic (2 MG/DOSE) 8 MG/3ML Subcutaneous Solution Pen-injector (Semaglutide (2 MG/DOSE))Indicati ons:Type 2 diabetes mellitus with hemoglobin A1c goal of less than 7.0% (HCC) Inject 2 mg under the skin once a week. 9 mL 1 024 Active Xarelto 20 MG Oral Tablet (Rivaroxaban)Chloe cations:Atrial fibrillation, unspecified type (HCC) TAKE 1 TABLET BY MOUTH EVERY DAY WITH DINNER 90 Tablet 025 Active Benzonatate 100 MG Oral Capsule (Tessalon Perles)Indication s:URTI (acute upper respiratory infection),Acute cough Take 1 Capsule by mouth 3 times a day as needed for Cough. Do not cut, crush, or chew. 50 Capsule 1 025 Active Fluticasone Propionate HFA 110 MCG/ACT Inhalation AerosolIndication s:URTI (acute upper respiratory infection),Acute cough Inhale 2 Puffs by mouth in the morning and 2 Puffs before bedtime. 12 g 1 025 Active Mometasone Furoate 110 MCG/ACT Inhalation Aerosol Powder Breath Activated (Asmanex)Indicati ons:Bronchitis, complicated Inhale 1 Puff by mouth every evening. 1 Each 1 025 Active Metoprolol Succinate ER 100 MG Oral Tablet Extended Release 24 Hour (toPROL XL)Indications:At rial fibrillation, unspecified type (HCC),Essential hypertension with goal blood pressure less than 130/80 TAKE 1 TABLET BY MOUTH TWICE A DAY 180 Tablet 3 024 2024 Discontinued(R efill) Spironolactone 25 MG Oral Tablet (Aldactone)Indica tions:Nonischemic cardiomyopathy (HCC) Take 0.5 Tablets by mouth in the morning. 45 Tablet 3 024 2024 Discontinued Furosemide 20 MG Oral Tablet (Lasix)Indication s:Essential hypertension with goal blood pressure less than 130/80 TAKE 1 TABLET BY MOUTH EVERY DAY IN THE MORNING 90 Tablet 024 2024 Discontinued Amiodarone HCl 200 MG Oral Tablet (Cordarone)Indica tions:Coronary artery disease involving enterprise coronary artery of enterprise heart without angina pectoris,Essentia l hypertension with goal blood pressure less than 130/80 TAKE 1 TABLET BY MOUTH EVERY DAY IN THE MORNING 90 Tablet 3 024 2024 Discontinued(M edication List Clean Up) documented as of this encounter (statuses as of 11/03/2024) Active Problems Problem Noted Date Diagnosed Date [...] cardiomyopathy 10/03/2018 Coronary artery disease invo lving enterprise coronary artery of enterprise heart without angina pectoris 10/03/2018 documented as of this encounter (statuses as of 11/03/2024) Resolved Problems Problem Noted Date Diagnosed Date Resolved Date Obesity, morbid (more than 1 00 lbs over ideal weight or BMI > 40) 05/27/2021 12/06/2023 Body mass index (BMI) of 40. 0 to 44.9 in adult 10/30/2019 06/05/2021 Overview: Per Obesity protocol documented as of this encounter (statuses as of 11/03/2024) Immunizations Name Administration Dates Next Due COVID-19 mRNA, LNP-s, No Pre serve, 2-Dose Series ([employer]) 11/09/2020,10/19/2020 COVID-19, MRNA-LNP, PF, 50 M CG/0.5 [...] No 11/08/2023 Does the household have a [facility] source [facility] income? (Household - for ages [...] encounter Miscellaneous Notes * Telephone Encounter - Jerilyn Carter MD - 10/18/2024 3:01 PM EST Noted. Sent. * Telephone Encounter - Odilia Qureshi CMA - 10/18/2024 2:50 PM EST Fax received from [facility] requesting alternative for Fluticasone Propionate HFA 110 MCG/ACT Inhalation Aerosol Requesting rx for Asmanex. Rx pended, please advise if correct order. documented in this encounter Plan of Treatment Upcoming Encounters Date Type Department Care Team (Late st Contact Info) Description 11/13/2024 10:30 AM EDT Office Visit Cardiology, [facility] [address] [place] [address] Justina Brower PA-C [address] [place] [phone] 12/26/2024 10:00 AM EDT [facility] [place] [id number] [facility] [address] [place] [address] 05/01/2025 3:00 PM EDT Office Visit Cardiology, [facility] [address] [place] [phone] Justina Brower PA-C [address] [place] [address] Health Maintenance Due Date Last Done Comments Hepatitis C Screening 01/07/1974 Cologuard 01/07/2001 Fecal Occult Blood Test 01/07/2001 Sigmoidoscopy 01/07/2001 Depression Screening 08/26/2023 08/26/2022 COVID-19 Vaccine ( season) 2024 04/29/2024, 05/29/2023, 05/04/2022, Additional history exists Albumin/Creatinine Ratio 10/11/2024 024, 01/09/2022, 10/17/2019 Pneumococcal Vaccine: 50+ Years (3 of 3 - PCV20 or PCV21) 10/17/2024 10/17/2019, 07/19/2018 Diabetic Foot Exam 12/05/2024 12/06/2023, 07/11/2021 Diabetic Eye Exam 04/11/2025 09/08/2022, 09/16/2021 Postponed from 09/08/2023 (Acute Illness) HbA1c 04/25/2025 10/23/2024, 12/21, 10/11/2023, Additional history exists GFR 10/23/2025 10/23/2024, 09/24, 10/11/2023, Additional history exists Colonoscopy 01/22/2033 01/22/2023, 10/25/2017 Colorectal Cancer Screening [...] as of this encounter Visit Diagnoses Diagnosis Bronchitis, complicated- Primary Bronchitis, not specified as acute or chronic documented in this encounter Care Teams Concrete Buster Operator Relationship Specialty Start Date End Date Jazmine Anguiano MD [address] [place] [address] PCP - General Internal Medicine 12/06/23 documented as of this encounter
--- OUTSIDE RECORDS SUMMARY | 2024-11-07 04:59 | External Medical Summary | Summary of Care ---
Author Name Unknown Organization [facility] Address [address] [facility] [place] [address] Phone [phone] Care Team Providers Care Lighting Engineer Name Role Phone Jazmine Anguiano MD Primary Care Provider Reason for Visit * Reason Onset Date Comments Hospital Follow-Up 10/18/2024 Encounter Details Date Type Department Care Team (Late st Contact Info) Description 10/18/2024 Telephone Cardiology, [facility] [address] [place] [address] Justina Brower PA-C [address] [place] [address] Hospital Follow-Up Allergies Active Allergy Reactions Criticality Noted Date Comments Statins 10/15/2022 Joint pain documented as of this encounter (statuses as of 10/23/2024) Medications Cholecalciferol (VITAMIN D3) 2000 units Tablet Take 1 Tablet by mouth in the morning. Active Multiple Vitamins-Minerals (MULTIVITAMIN ADULT) TABS Take by mouth. Act enedina Coenzyme Q10 (CO Q 10) 100 MG CAPS Take by mouth. Active Latanoprost 0.005 % Ophthalmic Solution (Xalatan) Instill 1 Drop into both eyes at bedtime. 11/05/19 21 Active OneTouch Verio w/Device KitIndications:Ty pe 2 diabetes mellitus with hemoglobin A1c goal of less than 7.0% ([facility]) Use up to 4 times a day E11.9 1 Kit 01/30/20 21 Active Aspirin 81 MG Oral Tablet Delayed Release Take 1 Tablet by mouth in the morning. Active [place]-3 Fish Oil 1200 MG Oral Capsule Take [...] Hour (toPROL XL)Indications:At rial fibrillation, unspecified type ([facility]),Essential hypertension with goal blood pressure less than 130/80 TAKE 1 TABLET BY MOUTH TWICE A DAY 180 Tablet 3 10/11/19 24 Active Spironolactone 25 MG Oral Tablet (Aldactone)Indica tions:Nonischemic cardiomyopathy (HCC) Take 0.5 Tablets by mouth in the morning. 45 Tablet 3 11/10/19 24 Active Entresto 24-26 MG Oral Tablet (sacubitril-valsa rtan 24-26 mg per tab)Indications:N onischemic cardiomyopathy (HCC) TAKE 1 TABLET BY MOUTH TWICE A DAY 180 Tablet 3 12/21/19 24 Active Repatha SureClick 140 MG/ML Subcutaneous Solution Auto-injector (evolocumab) Inject 140 mg under the skin every 14 days. Remove from refrigerator 30 minutes prior to injection. 6 mL 3 5 10:28 AM EST 02/01/20 24 Active CPAP every night at bedtime. Active Fuqrqvn-Xkthue-Cy ell Pertussis 5-2.5-18.5 LF-MCG/0.5 Suspension Prefilled Syringe [...] 24 Active Xarelto 20 MG Oral Tablet (Rivaroxaban)Chloe [...] bedtime. 12 g 1 10/12/19 25 Active Furosemide 20 MG Oral Tablet (Lasix)Indication s:Essential hypertension with goal blood pressure less than 130/80 TAKE 1 TABLET BY MOUTH EVERY DAY IN THE MORNING 90 Tablet 10/19/19 25 Active Mometasone Furoate 110 MCG/ACT Inhalation Aerosol Powder Breath Activated (Asmanex)Indicati ons:Bronchitis, complicated Inhale 1 Puff by mouth every evening. 1 Each 1 10/18/19 25 Active Amiodarone HCl 200 MG Oral Tablet (Cordarone)Indica tions:Coronary artery disease involving [place] coronary artery of [place] heart without angina pectoris,Essentia l hypertension with goal blood pressure less than 130/80 TAKE 1 TABLET BY MOUTH EVERY DAY IN THE MORNING 90 Tablet 3 08/01/20 24 025 Discontin ued(Medic ation List Clean Up) documented as of this encounter (statuses as of 10/23/2024) Active Problems Problem Noted Date Diagnosed Date [...] cardiomyopathy 10/03/2018 Coronary artery disease invo lving [place] coronary artery of [place] heart without angina pectoris 10/03/2018 documented as of this encounter (statuses as of 10/23/2024) Resolved Problems Problem Noted Date Diagnosed Date Resolved Date Obesity, morbid (more than 1 00 lbs over ideal weight or BMI > 40) 05/27/2021 12/06/2023 Body mass index (BMI) of 40. 0 to 44.9 in adult 10/30/2019 06/05/2021 Overview: Per Obesity protocol documented as of this encounter (statuses as of 10/23/2024) Immunizations Name Administration Dates Next Due COVID-19 mRNA, LNP-s, No Pre serve, 2-Dose Series ([employer]) 11/09/2020,10/19/2020 COVID-19, MRNA-LNP, PF, 50 M CG/0.5 [...] encounter Miscellaneous Notes * Telephone Encounter - Andrews Fry OSA - 10/23/2024 11:09 AM EST LM for patient to call back to confirm appt. * Telephone Encounter - Andrews Fry OSA - 10/19/2024 11:39 AM EST LM for patient to call and also sent a [employer] message as well to verify the time and date. * Telephone Encounter - Andrews Fry OSA - 10/19/2024 8:01 AM EST Patient is scheduled on: RETURN CARDIOLOGY at 10:30 AM (30 min)Arrive by 10:15 AM Wednesday November 13, 2024 Appointment Provider:Justina Brower PA-C in CARDIOLOGY [facility] * Telephone Encounter - Justina Norton RN - 10/18/2024 4:15 PM EST Sharad James was discharged from [facility] on 10/17/24. Per Farooq Quiroz PA-c: Close outpatient cardiology follow-up with Inocente DELONG documented in this encounter Plan of Treatment Upcoming Encounters Date Type Department Care Team (Late st Contact Info) Description 10/23/2024 3:20 PM EST Laboratory Laboratory, [facility] [address] [place] [phone] [facility] [address] [place] [address] Arrived 11/13/2024 10:30 AM EDT Office Visit Cardiology, [facility] [address] [place] [address] Justina Brower PA-C [address] [place] [address] 05/01/2025 3:00 PM EDT Office Visit Cardiology, [facility] [address] [place] [address] Justina Brower PA-C [address] [place] [address] Health Maintenance Due Date Last Done Comments [...] filedocumented as of this encounter Care Teams Lighting Engineer Relationship Specialty Start Date End Date Jazmine Anguiano MD [address] [place] [address] PCP - General Internal Medicine 12/06/23 documented as of this encounter
--- OUTSIDE RECORDS SUMMARY | 2024-11-07 04:59 | External Medical Summary | Summary of Care ---
Author Name Unknown Organization [facility] Address [address] [facility] [place] [address] Phone [phone] Care Team Providers Care Special Duty Nurse Name Role Phone Jazmine Anguiano MD Primary Care Provider Reason for Referral * Medication Prior Authorization - Pending Review Specialty Diagnoses / Procedures Referred By Contac t Referred To Contact Diagnoses Bronchitis, complicated Jerilyn Carter MD [address] [place] [address] Phone: tel: fax: Referral ID Status Reason Start Date Expiration Date V isits Requested Visits Authorized [id number] Pending Review [phone] Reason for Visit * Reason Onset Date Comments medication change 10/18/2024 Encounter Details Date Type Department Care Team (Late st Contact Info) Description 10/18/2024 Telephone General Internal Medicine [facility] [address] [place] [address] Jerilyn Carter MD [address] [place] [id number] medication change Allergies Active Allergy Reactions Criticality Noted Date Comments Statins 10/15/2022 Joint pain documented as of this encounter (statuses as of 10/30/2024) Medications Cholecalciferol (VITAMIN D3) 2000 units Tablet Take 1 Tablet by mouth in the morning. Active Multiple Vitamins-Minerals (MULTIVITAMIN ADULT) TABS Take by mouth. Act enedina Coenzyme Q10 (CO Q 10) 100 MG CAPS Take by mouth. Active Latanoprost 0.005 % Ophthalmic Solution (Xalatan) Instill 1 Drop into both eyes at bedtime. Active OneTouch Verio w/Device KitIndications:Ty pe 2 diabetes mellitus with hemoglobin A1c goal of less than 7.0% ([facility]) Use up to 4 times a day E11.9 1 Kit 021 Active Aspirin 81 MG Oral Tablet Delayed Release Take 1 Tablet by mouth in the morning. Active [place]-3 Fish Oil 1200 MG Oral Capsule Take 1 Cap by mouth daily. Active Brimonidine Tartrate-Timolol 0.2-0.5 % Ophthalmic Solution (Combigan) Instill 1 Drop into both eyes in the morning and 1 Drop before bedtime. Active OneTouch Verio In Vitro Strip (Glucose Blood)Indications :Type 2 diabetes mellitus with hemoglobin A1c goal of less than 7.0% ([facility]) Use up to 4 times [...] mL 3 10/18/19 25 10:28 AM EST Active CPAP every night at bedtime. Active Rdtyrtz-Mlinhe-Hv ell Pertussis 5-2.5-18.5 LF-MCG/0.5 Suspension Prefilled Syringe [...] Oral Tablet (Cordarone)Indica tions:Coronary artery disease involving [place] coronary artery of [place] heart without angina pectoris,Essentia l hypertension with goal blood pressure less than 130/80 TAKE 1 TABLET BY MOUTH EVERY DAY IN THE MORNING 90 Tablet 3 024 2024 Discontinued(M edication List Clean Up) documented as of this encounter (statuses as of 10/30/2024) Active Problems Problem Noted Date Diagnosed Date [...] cardiomyopathy 10/03/2018 Coronary artery disease invo lving [place] coronary artery of [place] heart without angina pectoris 10/03/2018 documented as of this encounter (statuses as of 10/30/2024) Resolved Problems Problem Noted Date Diagnosed Date Resolved Date Obesity, morbid (more than 1 00 lbs over ideal weight or BMI > 40) 05/27/2021 12/06/2023 Body mass index (BMI) of 40. 0 to 44.9 in adult 10/30/2019 06/05/2021 Overview: Per Obesity protocol documented as of this encounter (statuses as of 10/30/2024) Immunizations Name Administration Dates Next Due COVID-19 mRNA, LNP-s, No Pre serve, 2-Dose Series ([employer]) 11/09/2020,10/19/2020 COVID-19, MRNA-LNP, PF, 50 M CG/0.5 [...] No 11/08/2023 Does the household have a [facility] source of income? (Household - for [...] 10/18/2024 2:50 PM EST Fax received from [employer] requesting alternative for Fluticasone Propionate HFA 110 MCG/ACT Inhalation Aerosol Requesting rx for Asmanex. Rx pended, please advise if correct order. documented in this encounter Plan of Treatment Upcoming Encounters Date Type Department Care Team (Late st Contact Info) Description 11/13/2024 10:30 AM EDT Office Visit Cardiology, [facility] [address] [place] [address] Justina Brower PA-C [address] [place] [address] 05/01/2025 3:00 PM EDT Office Visit Cardiology, [facility] [address] [place] [address] Justina Brower PA-C [address] [place] [address] Health Maintenance Due Date Last Done Comments [...] 10/11/2023, Additional history exists GFR 10/23/2025 10/23/2024, 09/23, 02/01/2023, Additional history exists Colonoscopy 01/22/2033 01/22/2023, 10/25/2017 [...] chronic documented in this encounter Care Teams Special Duty Nurse Relationship Specialty Start Date End Date Jazmine Anguiano MD [address] [place] [address] [place] [address] PCP - General Internal Medicine 12/06/23 documented as of this encounter
--- OUTSIDE RECORDS SUMMARY | 2024-11-07 04:59 | External Medical Summary ---
Author Name Unknown Address Unknown Organization K01:[facility] - [address] [place] [address] Laboratory Report Ordering Provider Test Date Status DEBRA HOOVER 10/23/2024 16:08:59 Final Observation Date Value Abnormality Reference (Units ) Status Ferritin 10/23/2024 16:08:59 33 30-400 (ng /mL) Final Performing Location [facility] - [address] [place] [address]
--- OUTSIDE RECORDS SUMMARY | 2024-11-07 04:59 | External Medical Summary | Summary of Care ---
Author Name Unknown Organization [facility] Address [address] [facility] [place] [address] Phone [phone] Care Team Providers Care Batchmaker Name Role Phone Jazmine Anguiano MD Primary Care Provider Reason for Visit * Reason Onset Date Comments Hospital Follow-Up 10/18/2024 Encounter Details Date Type Department Care Team (Late st Contact Info) Description 10/18/2024 Telephone Cardiology, [facility] [address] [place] [address] Justina Brower PA-C [address] [place] [address] Hospital Follow-Up Allergies Active Allergy Reactions Criticality Noted Date Comments Statins 10/15/2022 Joint pain documented as of this encounter (statuses as of 10/19/2024) Medications Cholecalciferol (VITAMIN D3) 2000 units Tablet [...] goal of less than 7.0% ([facility]) Use up to 4 times a day E11.9 1 Kit 01/30/20 21 Active Aspirin 81 MG Oral Tablet Delayed Release Take 1 Tablet by mouth in the morning. Active [place]-3 Fish Oil 1200 MG Oral Capsule Take 1 Cap by mouth daily. Active Brimonidine Tartrate-Timolol 0.2-0.5 % Ophthalmic Solution (Combigan) Instill 1 Drop into both eyes in the morning and 1 Drop before bedtime. Active OneTouch Verio In Vitro Strip (Glucose Blood)Indications: Type 2 diabetes mellitus with hemoglobin A1c goal of less than 7.0% ([facility]) Use up to 4 times [...] Hour (toPROL XL)Indications:Atr ial fibrillation, unspecified type ([facility]),Essential hypertension with goal blood pressure [...] Active CPAP every night at bedtime. Active Omuirtb-Sqrteg-Enq ll Pertussis 5-2.5-18.5 LF-MCG/0.5 Suspension Prefilled Syringe [...] week. 9 mL 1 06/26/20 24 Active Amiodarone HCl 200 MG Oral Tablet (Cordarone)Indicat ions:Coronary artery disease involving [place] coronary artery of [place] heart without angina pectoris,Essential hypertension with goal [...] 25 Active Furosemide 20 MG Oral Tablet (Lasix)Indications :Essential hypertension with goal blood pressure less than 130/80 TAKE 1 TABLET BY MOUTH EVERY DAY IN THE MORNING 90 Tablet 10/19/19 25 Active Mometasone Furoate 110 MCG/ACT Inhalation Aerosol Powder Breath Activated (Asmanex)Indicatio ns:Bronchitis, complicated Inhale 1 Puff by mouth every evening. 1 Each 1 10/18/19 25 Active documented as of this encounter (statuses as of 10/19/2024) Active Problems Problem Noted Date Diagnosed Date [...] cardiomyopathy 10/03/2018 Coronary artery disease invo lving [place] coronary artery of [place] heart without angina pectoris 10/03/2018 documented as of this encounter (statuses as of 10/19/2024) Resolved Problems Problem Noted Date Diagnosed Date Resolved Date Obesity, morbid (more than 1 00 lbs over ideal weight or BMI > 40) 05/27/2021 12/06/2023 Body mass index (BMI) of 40. 0 to 44.9 in adult 10/30/2019 06/05/2021 Overview: Per Obesity protocol documented as of this encounter (statuses as of 10/19/2024) Immunizations Name Administration Dates Next Due COVID-19 mRNA, LNP-s, No Pre serve, 2-Dose Series ([employer]) 11/09/2020,10/19/2020 COVID-19, MRNA-LNP, PF, 50 M CG/0.5 [...] patient to call and also sent a ubitus message as well to verify the time and date. * Telephone Encounter - Andrews Fry OSA - 10/19/2024 8:01 AM EST Patient is scheduled on: RETURN CARDIOLOGY at 10:30 AM (30 min)Arrive by 10:15 AM Wednesday November 13, 2024 Appointment Provider:Justina Brower PA-C in [facility]OLOGY [facility] * Telephone Encounter - Justina Norton RN - 10/18/2024 4:15 PM EST Sharad James was discharged from [facility] on 10/17[facility]24. Per Farooq Quiroz PA-c: Close outpatient cardiology follow-up with Inocente DELONG documented in this encounter Plan of Treatment Upcoming Encounters Date Type Department Care Team (Late st Contact Info) Description 10/23/2024 2:40 PM EST Office Visit Family Practice [facility] [address] [place] [address] Jazmine Anguiano MD [address] [place] [address] 11/13/2024 10:30 AM EDT Office Visit Cardiology, [facility] [address] [place] [address] Justina Brower PA-C [address] [place] [address] 05/01/2025 3:00 PM EDT Office Visit Cardiology, [facility] [address] [place] [address] Justina Brower PA-C [address] [place] [address] Health Maintenance Due Date Last Done Comments [...] filedocumented as of this encounter Care Teams Batchmaker Relationship Specialty Start Date End Date Jazmine Anguiano MD [address] [place] [address] [address] PCP - General Internal Medicine 12/06/23 documented as of this encounter
--- OUTSIDE RECORDS SUMMARY | 2024-11-07 04:59 | External Medical Summary | Summary of Care ---
Author Name Unknown Organization [facility] Address [address] [facility] [place] [address] Phone [phone] Care Team Providers Care Hand Riveter Name Role Phone Jazmine Anguiano MD Primary Care Provider Encounter Details Date Type Department Care Team (Late st Contact Info) Description 11/03/2024 Orders Only PATIENT PORTAL DO NOT DELETE THIS DEPT USED BY [place] [id number] Allergies Active Allergy Reactions Criticality Noted Date [...] hemoglobin A1c goal of less than 7.0% ([facility]) Use up to 4 times a day E11.9 1 Kit 01/30/20 21 Active Aspirin 81 MG Oral Tablet Delayed Release Take 1 Tablet by mouth in the morning. Active [place]-3 Fish Oil 1200 MG Oral Capsule Take [...] Dizziness. 30 Tablet 1 12/25/19 23 Active Entresto 24-26 MG Oral Tablet (sacubitril-valsar [...] Active CPAP every night at bedtime. Active Hdiqiov-Dfngbs-Ilo ll Pertussis 5-2.5-18.5 LF-MCG/0.5 Suspension Prefilled Syringe [...] evening. 1 Each 1 10/18/19 25 Active Metoprolol Succinate ER 50 MG Oral Tablet Extended Release 24 Hour (toPROL XL)Indications:Par oxysmal atrial fibrillation (HCC) Take 1 Tablet by mouth in the morning. Take along with 100mg tablet for a total of 150mg in AM.. 90 Tablet 3 10/24/19 25 Active Metoprolol Succinate ER 100 MG Oral Tablet Extended Release 24 Hour (toPROL XL)Indications:Atr ial fibrillation, unspecified type (HCC),Essential hypertension with goal blood pressure less than 130/80 Take 1 Tablet by mouth in the morning and 1 Tablet before bedtime. 180 Tablet 3 10/24/19 25 Active Spironolactone 25 MG Oral Tablet (Aldactone)Indicat ions:Nonischemic cardiomyopathy (HCC) TAKE 1/2 TABLET BY MOUTH IN THE MORNING 45 Tablet 10/28/19 25 Active documented as of this encounter (statuses as of 11/03/2024) Active Problems Problem Noted Date Diagnosed Date Colon polyp 10/31/2024 Overview (10/31/2024): 2022. GI recommended re-assessing comorbids in 5yrs to decide on further screening. Body mass index (BMI) of 40.0 to [...] cardiomyopathy 10/03/2018 Coronary artery disease invo lving [place] coronary artery of [place] heart without angina pectoris 10/03/2018 documented as [...] mRNA, LNP-s, No Pre serve, 2-Dose Series ([employer]) 11/09/2020,10/19/2020 COVID-19, MRNA-LNP, PF, 50 M CG/0.5 [...] 11/13/2024 10:30 AM EDT Office Visit Cardiology, [facility] [address] [address] Justina Brower PA-C [address] [address] 12/26/2024 10:00 AM EDT Office Visit Pharmacy, [facility] [address] [address] [facility] [address] [address] 05/01/2025 3:00 PM EDT Office Visit Cardiology, [facility] [address] [address] Justina Brower PA-C [address] [place] [address] Health Maintenance Due Date Last Done Comments [...] filedocumented as of this encounter Care Teams Hand Riveter Relationship Specialty Start Date End Date Jazmine Anguiano MD [address] [place] [address] PCP - General Internal Medicine 12/06/23 documented as of this encounter
--- OUTSIDE RECORDS SUMMARY | 2024-11-07 04:59 | External Medical Summary | Summary of Care ---
Author Name Unknown Organization [facility] Address [address] [facility] [facility] [place] [address] Phone [phone] Care Team Providers Care Tailor'S Aide Name Role Phone Jazmine Anguiano MD Primary Care Provider Reason for Visit * Reason Onset Date Comments Hospital Follow-Up [facility] 10/16/24- 10/17/24 for afib Hospital Follow-Up 10/23/2024 Encounter Details Date Type Department Care Team (Late st Contact Info) Description 10/23/2024 2:40 PM EST Office Visit Family [facility] [address] [facility] [place] [address] Jazmine Anguiano MD [address] [place] [address] Hospital discharge follow-up*; Paroxysmal atrial fibrillation (HCC); Atrial fibrillation, unspecified type (HCC); Essential hypertension with goal blood pressure less than 130/80; Type 2 diabetes mellitus with hemoglobin A1c goal of less than 7.0% (HCC); Anemia, unspecified type; Abnormal thyroid function test; JOSE DE JESUS (obstructive sleep apnea) Allergies Active Allergy Reactions Criticality Noted Date Comments Statins 10/15/2022 Joint pain documented as of this encounter (statuses as of 10/24/2024) Medications Cholecalciferol (VITAMIN D3) 2000 units Tablet [...] goal of less than 7.0% ([facility]) Use up to 4 times a day E11.9 1 Kit 01/30/20 21 Active Aspirin 81 MG Oral Tablet Delayed Release Take 1 Tablet by mouth in the morning. Active [place]-3 Fish Oil 1200 MG Oral Capsule Take 1 Cap by mouth daily. Active Brimonidine Tartrate-Timolol 0.2-0.5 % Ophthalmic Solution (Combigan) Instill 1 Drop into both eyes in the morning and 1 Drop before bedtime. Active OneTouch Verio In Vitro Strip (Glucose Blood)Indications :Type 2 diabetes mellitus with hemoglobin A1c goal of less than 7.0% ([facility]) Use up to 4 times [...] Dizziness. 30 Tablet 1 12/25/19 23 Active Spironolactone 25 MG Oral Tablet (Aldactone)Indica [...] Active CPAP every night at bedtime. Active Zmwlqom-Cuzgvt-Tu ell Pertussis 5-2.5-18.5 LF-MCG/0.5 Suspension Prefilled Syringe [...] Oral Tablet Extended Release 24 Hour (toPROL XL)Indications:Pa roxysmal atrial fibrillation (HCC) Take 1 Tablet by [...] bedtime. 180 Tablet 3 10/24/19 25 Active Metoprolol Succinate ER 100 MG Oral Tablet Extended Release 24 Hour (toPROL XL)Indications:At rial fibrillation, unspecified type (HCC),Essential hypertension with goal blood pressure less than 130/80 TAKE 1 TABLET BY MOUTH TWICE A DAY 180 Tablet 3 10/11/19 24 025 Discontin ued(Refil l) Amiodarone HCl 200 MG Oral Tablet (Cordarone)Indica tions:Coronary artery disease involving the [place] coronary artery of [place] heart without angina pectoris,[place]ent[place] l hypertension with goal blood pressure less than 130/80 TAKE 1 TABLET BY MOUTH EVERY DAY IN THE MORNING 90 Tablet 3 08/01/20 24 025 Discontin ued(Medic ation List Clean Up) Metoprolol Succinate ER 50 MG Oral Tablet Extended Release 24 Hour (toPROL XL) Take 1 Tablet by mouth in the morning. 10/17/19 25 025 Discontin ued(Refil l) documented as of this encounter (statuses as of 10/24/2024) Active Problems Problem Noted Date Diagnosed Date [...] cardiomyopathy 10/03/2018 Coronary artery disease invo lving the [place] coronary artery of [place] heart without angina pectoris 10/03/2018 documented as of this encounter (statuses as of 10/24/2024) Resolved Problems Problem Noted Date Diagnosed Date Resolved Date Obesity, morbid (more than 1 00 lbs over ideal weight or BMI > 40) 05/27/2021 12/06/2023 Body mass index (BMI) of 40. 0 to 44.9 in adult 10/30/2019 06/05/2021 Overview: Per Obesity protocol documented as of this encounter (statuses as of 10/24/2024) Immunizations Name Administration Dates Next Due COVID-19 mRNA, LNP-s, No Pre serve, 2-Dose Series ([employer]) 11/09/2020,10/19/2020 COVID-19, MRNA-LNP, PF, 50 M CG/0.5 [...] Sign Reading Time Taken Comments Blood Pressure 122/74 10/23/2024 2:49 PM EST Pulse 91 10/23/2024 2:49 PM EST Temperature - - Respiratory Rate 22 10/23/2024 2:49 PM EST Oxygen Saturation 94% 10/23/2024 2:49 PM EST Inhaled Oxygen Concentration - - Weight 123.8 kg (273 lb) 10/23/2024 2:49 PM EST Height - - Body Mass Index 42.1 10/12/2024 3:01 PM EST documented in this encounter Patient Instructions * Patient Instructions* Jazmine Anguiano MD - 10/23/2024 3:23 PM EST Next Steps: -- restart CPAP as soon as possible -- wear pulse ox when walking around to see if feeling winded is connected to a faster HR. documented in this encounter Progress Notes * Jzamine Anguiano MD - 10/23/2024 3:04 PM EST SUBJECTIVE: Sharad James is a 69 year old male. Chief Complaint Patient presents with Hospital Follow-Up [facility] 10/16/24-10/17/24 for afib Hospital Follow-Up Recent Admission: Patient was recently admitted to [facility] 10/16/24. The date of discharge was 10/17/24. Discharge report received and reviewed. HPI: Afib with RVR (HR 120s, lowest SBP 90s) Echo with EF 25-30%, severe global hypokinesis of left ventricle, moderate LV dilation Already on amiodarone and Xarelto Given digoxin Cardiology consulted Transition to rate control strategy. 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 Has Cardiology follow-up scheduled later this month Patient Active Problem List Diagnosis Nonischemic cardiomyopathy (HCC) Coronary artery disease involving the [place] coronary artery of [place] heart without angina pectoris Essential hypertension with goal blood pressure less than 130/80 Hypersomnolence disorder JOSE DE JESUS (obstructive sleep apnea) Type 2 diabetes mellitus with hemoglobin A1c goal of less than 7.0% ([facility]) Dyslipidemia, goal LDL below 70 Paroxysmal atrial fibrillation ([facility]) ICD (implantable cardioverter-defibrillator), single, in situ Primary open angle glaucoma (POAG) of both eyes, mild stage Body mass index (BMI) of 40.0 to 44.9 in adult ([facility]) Current Outpatient Medications Medication Sig Dispense Refill Cholecalciferol (VITAMIN D3) 2000 units Tablet Take 1 Tablet by mouth in the morning. Multiple Vitamins-Minerals (MULTIVITAMIN ADULT) TABS Take by mouth. Coenzyme Q10 (CO Q 10) 100 MG CAPS Take by mouth. Latanoprost 0.005 % Ophthalmic Solution (Xalatan) Instill 1 Drop into both eyes at bedtime. Youtegouch Verio w/Device Kit Use up to 4 times a day E11.9 1 Kit 0 Aspirin 81 MG Oral Tablet Delayed Release Take 1 Tablet by mouth in the morning. [place]-3 Fish Oil 1200 MG Oral Capsule Take 1 Cap by mouth daily. Brimonidine Tartrate-Timolol 0.2-0.5 % Ophthalmic Solution (Combigan) Instill 1 Drop into both eyesin the morning and 1 Drop before bedtime. Youtegouch Verio In Vitro Strip (Glucose Blood) Use up to 4 times a day E11.9 400 Strip 3 Youtegouch Delica Lancets 33G Use as directed 4 times a day as needed for Hyperglycemia (high sugar) or Hypoglycemia (low sugar). 400 Each 3 Spironolactone 25 MG Oral Tablet (Aldactone) Take 0.5 Tablets by mouth in the morning. 45 Tablet 3 Entresto 24-26 MG Oral Tablet (sacubitril-valsartan 24-26 mg per tab) TAKE 1 TABLET BY MOUTH TWICE A DAY 180 Tablet 3 Repatha SureClick 140 MG/ML Subcutaneous Solution Auto-injector (evolocumab) Inject 140 mg under the skin every 14 days. Remove from refrigerator 30 minutes prior to injection. 6 mL 3 CPAP every night at bedtime. metFORMIN HCl 500 MG Oral Tablet (Glucophage) [...] EVERY DAY WITH DINNER 90 Tablet 0 Benzonatate 100 MG Oral Capsule (Tessalon Perles) Take 1 Capsule by mouth 3 times a day as needed for Cough. Do not cut, crush, or chew. 50 Capsule 1 Fluticasone Propionate HFA 110 MCG/ACT Inhalation Aerosol Inhale 2 Puffs by mouth in the morning and 2 Puffs before bedtime. 12 g 1 Furosemide 20 MG Oral Tablet (Lasix) TAKE 1 TABLET BY MOUTH EVERY DAY IN THE MORNING 90 Tablet 0 Mometasone Furoate 110 MCG/ACT Inhalation Aerosol Powder Breath Activated (Asmanex) Inhale 1 Puff by mouth every evening. 1 Each 1 Metoprolol Succinate ER 50 MG Oral Tablet Extended Release 24 Hour (toPROL XL) Take 1 Tablet by mouth in the morning. Take along with 100mg tablet for a total of 150mg in AM.. 90 Tablet 3 Metoprolol Succinate ER 100 MG Oral Tablet Extended Release 24 Hour (toPROL XL) Take 1 Tablet by mouth in the morning and 1 Tablet before bedtime. 180 Tablet 3 Meclizine HCl 25 MG Oral Tablet Chewable Take 1 Tablet by mouth 3 times a day as needed for Dizziness. 30 Tablet 1 Madtigg-Xhxewl-Wlfao Pertussis 5-2.5-18.5 LF-MCG/0.5 Suspension Prefilled Syringe (Boostrix) Injectinto a large muscle. 0.5 mL 0 No current facility-administered medications for this visit. Current and discharge medications have been reconciled. Review of patient's allergies indicates: Allergen Reactions Statins Joint pain OBJECTIVE: BP 122/74 (BP Site: Left Arm, BP Position: Sitting, BP Cuff Size: Regular) | Pulse 91 | Resp 22 | Wt 273 lb (123.8 kg) | SpO2 94% | BMI 42.10 kg/m | BSA 2.43 m REVIEW OF SYSTEMS: Review of Systems Constitutional: Negative for appetite change, fatigue and fever. HENT: Negative for sinus pain and voice change. Eyes: Negative for visual disturbance. Respiratory: Positive for cough (mild, better than a week ago). Getting winded walking around more easily Cardiovascular: Positive for leg swelling (baseline). Negative for chest pain and palpitations. Can't feel palpitations Gastrointestinal: Negative for constipation, diarrhea, nausea and vomiting. Endocrine: Taking ozempic regularly, doing okay. Sugars higher since starting Repatha a few months ago. Fasting sugars have been 150s. Genitourinary: Negative for dysuria and hematuria. Musculoskeletal: Negative for joint swelling and myalgias. Skin: Negative for rash and wound. Neurological: Negative for light-headedness. Hematological: Does not bruise/bleed easily. Psychiatric/Behavioral: Off CPAP for three weeks due to cold. Hasn't restarted. PHYSICAL EXAM: BP 122/74 (BP Site: Left Arm, BP Position: Sitting, BP Cuff Size: Regular) | Pulse 91 | Resp 22 | Wt 273 lb (123.8 kg) | SpO2 94% | BMI 42.10 kg/m | BSA 2.43 m Physical Exam Vitals and nursing note reviewed. Constitutional: General: He is not in acute distress. Appearance: Normal appearance. He is not ill-appearing. HENT: Head: Normocephalic and atraumatic. Right Ear: Tympanic membrane, ear canal and external ear normal. There is no impacted cerumen. Left Ear: Tympanic membrane, ear canal and external ear normal. There is no impacted cerumen. Nose: Nose normal. Mouth/Throat: Mouth: Mucous membranes are moist. Pharynx: Oropharynx is clear. No oropharyngeal exudate. Eyes: General: No scleral icterus. Right eye: No discharge. Left eye: No discharge. Conjunctiva/sclera: Conjunctivae normal. Pupils: Pupils are equal, round, and reactive to light. Neck: Thyroid: No thyroid mass, thyromegaly or thyroid tenderness. Cardiovascular: Rate and Rhythm: Normal rate. Rhythm irregular. Heart sounds: No murmur heard. Pulmonary: Effort: Pulmonary effort is normal. Breath sounds: Normal breath sounds. Musculoskeletal: Right lower leg: No edema. Left lower leg: No edema. Lymphadenopathy: Cervical: No cervical adenopathy. Skin: General: Skin is warm and dry. Neurological: General: No focal deficit present. Mental Status: He is alert. Psychiatric: Mood and Affect: Mood normal. Behavior: Behavior normal. ASSESSMENT: Hospital discharge follow-up (Primary) - DISCH MED RECON CUR MED LIS Paroxysmal atrial fibrillation (HCC) - Metoprolol Succinate ER 50 MG Oral Tablet Extended Release 24 Hour (toPROL XL); Take 1 Tablet by mouth in the morning. Take along with 100mg tablet for a total of 150mg in AM.. Atrial fibrillation, unspecified type (HCC) - Metoprolol Succinate ER 100 MG Oral Tablet Extended Release 24 Hour (toPROL XL); Take 1 Tablet bymouth in the morning and 1 Tablet before bedtime. Essential hypertension with goal blood pressure less than 130/80 - Metoprolol Succinate ER 100 MG Oral Tablet Extended Release 24 Hour (toPROL XL); Take 1 Tablet bymouth in the morning and 1 Tablet before bedtime. Type 2 diabetes mellitus with hemoglobin A1c goal of less than 7.0% ([facility]) - HEMOGLOBIN A1C; Future; Expected date: 10/23/2024 Anemia, unspecified type - CBC WITH WBC DIFFERENTIAL AND ANEMIA REFLEX WORKUP; Future; Expected date: 10/23/2024 Abnormal thyroid function test - TSH WITH FREE T4 IF INDICATED; Future; Expected date: 12/17/2024 JOSE DE JESUS (obstructive sleep apnea) Amenable to working with MTM again if A1c is not at goal. Refill sent for new metoprolol regimen. Recheck TSH in 6-8 weeks now that he has stopped amiodarone. Keep follow-up with Cardiology scheduled for later this month. Patient Instructions Next Steps: -- restart CPAP as soon as possible -- wear pulse ox when walking around to see if feeling winded is connected to a faster HR. I spent a total of 30-39 minutes (exact time 30 mins) minutes on the date of service in preparation, delivery, and documentation of the care provided to Sharad James excluding any time spent in performance of separately billed services. Jazmine Anguiano MD documented in this encounter Plan of Treatment Upcoming Encounters Date Type Department Care Team (Late st Contact Info) Description 11/13/2024 10:30 AM EDT Office Visit Cardiology, [facility] [address] [place] [address] Justina Brower PA-C [address] [place] [address] 05/01/2025 3:00 PM EDT Office Visit Cardiology, [facility] [address] [place] [address] Justina Brower PA-C [address] [place] [address] Scheduled Orders Name Type Priority Associated Diagnoses Orde r Schedule TSH WITH FREE T4 IF INDICATED Lab Routine Abnormal thyroid function test Expected: 12/17/2024 (Approximate), Expires: 10/23/2025 Health Maintenance Due Date Last Done Comments Hepatitis C Screening 01/07/1974 Cologuard 01/07/2001 Fecal Occult Blood Test 01/07/2001 Sigmoidoscopy 01/07/2001 Depression Screening 08/26/2023 08/26/2022 COVID-19 Vaccine ( season) 2024 04/29/2024, 05/29/2023, 05/04/2022, Additional history exists HbA1c 07/09/2024 10/23/2024, 12/21, 10/11/2023, Additional history exists Albumin/Creatinine Ratio 10/11/2024 024, 01/09/2022, 10/17/2019 GFR 10/11/2024 10/23/2024, 09/23, 02/01/2023, Additional history exists Pneumococcal Vaccine: 50+ Years [...] Not on filedocumented as of this encounter Results * (ABNORMAL) HEMOGLOBIN A1C (10/23/2024 4:08 PM EST) Hemoglobin A1C 8.2(H) 4.0 - 5.6 % 10/24/2024 3:59 AM EST [facility] [place]:The use of HbA1c to monitor glycemic status is based on normal hemoglobin and HbA composition. This test should not be used in patients with abnormal hemoglobin that affects the half life of the red blood cell or the in vivo glycation rates. Estimated Average Glucose 189(H) <126 mg/dL 10/24/2024 3:59 AM EST [facility] [place] Venous blood specimen / Unknown Venipuncture / Unknown 10/23/2024 4:08 PM EST 10/23/2024 4:09 PM EST us Jazmine Anguiano MD LAB BLOOD ORDERABLES F inal Result [facility] [place] [address] [place] [address] documented in this encounter Visit Diagnoses Diagnosis Hospital discharge follow-up- Primary Other follow-up examination Paroxysmal atrial fibrillation (HCC) Atrial fibrillation Atrial fibrillation, unspecified type (HCC) Essential hypertension with goal blood pressure less than 130/80 Type 2 diabetes mellitus with hemoglobin A1c goal of less than 7.0% (HCC) Anemia, unspecified type Abnormal thyroid function test Nonspecific abnormal results of thyroid function study JOSE DE JESUS (obstructive sleep apnea) Obstructive sleep apnea (adult) (pediatric) documented in this encounter Care Teams Tailor'S Aide Relationship Specialty Start Date End Date Jazmine Anguiano MD [address] [place] [id number] PCP - General Internal Medicine 12/06/23 documented as of this encounter"
--- OUTSIDE RECORDS SUMMARY | 2024-11-07 04:59 | External Medical Summary ---
Author Name Unknown Address Unknown Organization [id number][place] [place] [address] [place] [address] Laboratory Report Ordering Provider Test Date Status DEBRA HOOVER 10/23/2024 16:08:59 Final Observation Date Value Abnormality Reference (Units ) Status Iron 10/23/2024 16:08:59 25 Below low normal 45-176 (ug/dL) Final Iron-binding capacity 10/23/2024 16:08:59 439 Above high normal 250-425 (ug/dL) Final Transferrin Sat % 10/23/2024 16:08:59 6 Below low normal 15-55 (%) Final Performing Location [facility] [place] [address] [place] [address]
--- OUTSIDE RECORDS SUMMARY | 2024-11-07 04:59 | External Medical Summary ---
Author Name Unknown Address Unknown Organization [id number]:[facility] [place] - [address] [facility] [place] [address] Laboratory Report Ordering Provider Test Date Status DEBRA HOOVER 10/23/2024 16:08:59 Final Observation Date Value Abnormality Reference (Units ) Status SYNC LEUKOCYTES IN BLOOD BY AUTOMATED COUNT 10/23/2024 16:08:59 9.05 4.00-10.80 (K/uL) Final Segs 10/23/2024 16:08:59 70.3 40.0-75.0 (%) Final Lymphs % 10/23/2024 16:08:59 12.6 Below low normal 18.0-42.0 (%) Final Monos 10/23/2024 16:08:59 14.3 Above high normal 1.0-11.0 (%) Final Eosinophils 10/23/2024 16:08:59 1.7 0.0-6.0 (%) Final Basos 10/23/2024 16:08:59 0.8 0.0-2.0 (%) Final Immature Granulocyte, Percent 10/23/2024 16:08:59 0.3 0.0-2.0 (%) Final Absolute Segs 10/23/2024 16:08:59 6.37 1.80-7.70 (K/uL) Final Lymphs, absolute 10/23/2024 16:08:59 1.14 1.00-4.80 (K/ul) Final Monos, Abs 10/23/2024 16:08:59 1.29 Above high normal 0.00-1.10 (K/uL) Final Eos, Abs 10/23/2024 16:08:59 0.15 0.00-0.70 (K/uL) Final Basos, Abs 10/23/2024 16:08:59 0.07 0.00-0.20 (K/uL) Final Immature Granulocytes, Number 10/23/2024 16:08:59 0.03 0.00-0.20 (K/uL) Final Performing Location [facility] [place] - [address] [facility] [address]
--- OUTSIDE RECORDS SUMMARY | 2024-11-07 04:59 | External Medical Summary | Summary of Care ---
Author Name Unknown Organization [facility] Address [address] [facility] [place] [address] Phone [phone] Care Team Providers Care Electrical Controls Designer Name Role Phone Jazmine Anguiano MD Primary Care Provider Reason for Visit * Reason Comments eRx-Medication Refill Encounter Details Date Type Department Care Team (Late st Contact Info) Description 10/17/2024 Refill [facility] [address] [place] [address] Ottoniel Mayorga PA-C [address] [place] [address] Essential hypertension with goal blood pressure less than 130/80 Allergies Active Allergy Reactions Criticality Noted Date Comments Statins 10/15/2022 Joint pain documented as of this encounter (statuses as of 10/21/2024) Medications Cholecalciferol (VITAMIN D3) 2000 units Tablet [...] A1c goal of less than 7.0% ([facility]) Use up to 4 times a day E11.9 1 Kit 021 Active Aspirin 81 MG Oral Tablet Delayed Release Take 1 Tablet by mouth in the morning. Active Alexander-3 Fish Oil 1200 MG Oral Capsule Take 1 Cap by mouth daily. Active Brimonidine Tartrate-Timolol 0.2-0.5 % Ophthalmic Solution (Combigan) Instill 1 Drop into both eyes in the morning and 1 Drop before bedtime. Active OneTouch Verio In Vitro Strip (Glucose Blood)Indications :Type 2 diabetes mellitus with hemoglobin A1c goal of less than 7.0% ([facility]) Use up to 4 times a day [...] Hour (toPROL XL)Indications:At rial fibrillation, unspecified type ([facility]),Essential hypertension with goal blood pressure less than 130/80 TAKE 1 TABLET BY MOUTH TWICE A DAY 180 Tablet 3 024 Active Spironolactone 25 MG Oral Tablet (Aldactone)Indica tions:Nonischemic cardiomyopathy (HCC) Take 0.5 Tablets by mouth in the morning. 45 Tablet 3 024 Active Entresto 24-26 MG Oral Tablet (sacubitril-valsa [...] Active CPAP every night at bedtime. Active Pxscbea-Uckxfb-Xx ell Pertussis 5-2.5-18.5 LF-MCG/0.5 Suspension Prefilled Syringe [...] a week. 9 mL 1 024 Active Amiodarone HCl 200 MG Oral Tablet (Cordarone)Indica tions:Coronary artery disease involving [place] coronary artery of [place] heart without angina pectoris,Essentia l hypertension with goal blood pressure less than 130/80 TAKE 1 TABLET BY MOUTH EVERY DAY IN THE MORNING 90 Tablet 3 024 Active Xarelto 20 MG Oral Tablet [...] before bedtime. 12 g 1 025 Active Furosemide 20 MG Oral Tablet (Lasix)Indication s:Essential hypertension with goal blood pressure less than 130/80 TAKE 1 TABLET BY MOUTH EVERY DAY IN THE MORNING 90 Tablet 025 Active Furosemide 20 MG Oral Tablet (Lasix)Indication s:Essential hypertension with goal blood pressure less than 130/80 TAKE 1 TABLET BY MOUTH EVERY DAY IN THE MORNING 90 Tablet 024 2024 Discontinued documented as of this encounter (statuses as of 10/21/2024) Active Problems Problem Noted Date Diagnosed Date [...] cardiomyopathy 10/03/2018 Coronary artery disease invo lving [place] coronary artery of [place] heart without angina pectoris 10/03/2018 documented as of this encounter (statuses as of 10/21/2024) Resolved Problems Problem Noted Date Diagnosed Date Resolved Date Obesity, morbid (more than 1 00 lbs over ideal weight or BMI > 40) 05/27/2021 12/06/2023 Body mass index (BMI) of 40. 0 to 44.9 in adult 10/30/2019 06/05/2021 Overview: Per Obesity protocol documented as of this encounter (statuses as of 10/21/2024) Immunizations Name Administration Dates Next Due COVID-19 mRNA, LNP-s, No Pre serve, 2-Dose Series (Mobile2Me) 11/09/2020,10/19/2020 COVID-19, MRNA-LNP, PF, 50 M CG/0.5 [...] * Telephone Encounter - Nhung Varghese - 10/21/2024 10:38 AM EST Received message from [facility] regarding patient needing labs. Patient was notified. Successfully contacted patient and provided [facility] message. * Telephone Encounter - Gwen Lott [facility] - 10/19/2024 8:41 AM EST Signed Prescriptions: Disp Refills Furosemide 20 MG Oral Tablet (Lasix) 90 Tab*0 Sig: TAKE 1 TABLET BY MOUTH EVERY DAY IN THE MORNING Authorizing Provider: OTTONIEL MAYORGA Ordering User: GWEN LOTT * Telephone Encounter - Gwen Lott RP - 10/19/2024 8:37 AM EST Provided 90 days supply with 0 refill(s) until upcoming appointment. Per refill protocol patient should have BMP on file within past year. Lab orders placed. Please contact patient to advise of labs ordered for blood draw. Fasting is not required. Advise toobtain labs before requesting the next refill. Thanks, Gwen Lott, PharmD Clinical Pharmacist [facility] Services [phone] 10/19/2024, 8:37 AM * Telephone Encounter - Anu Varghese - 10/17/2024 4:10 AM ESTPending Prescriptions: Disp Refills Furosemide 20 MG Oral Tablet [Pharmacy Med*90 Tab*0 Sig: TAKE 1 TABLET BY MOUTH EVERY DAY IN THE MORNING * Telephone Encounter - Anu Varghese - 10/17/2024 4:09 AM EST Did you pend patient's preferred pharmacy and medication before forwarding?yes Pharmacy: [id number] [address] [facility] Pending Prescriptions: Disp Refills Furosemide 20 MG Oral Tablet (Lasix) [Pha*90 Tab*0 Sig: TAKE 1 TABLET BY MOUTH EVERY DAY IN THE MORNING Last Visit: 11/10/2023 (in office), 07/24/2020 (telemedicine) Next Visit: 05/01/2025 If no future appointments scheduled, and last appointment is greater than a year ago, please schedule patient for a follow-up appointment Last date the medication was ordered: 07/19/2024 Is this request for a controlled substance?No Urine Drug Screen:No results found for this or any previous visit. Patient Phone Numbers Labs: Lab Results Component Value Date/Time CREAT 1.1 10/11/2023 12:24 PM CREAT 1.1 10/17/2019 10:40 AM POTASSIUM 4.8 10/11/2023 12:24 PM POTASSIUM 4.7 10/17/2019 10:40 AM TSH 1.91 10/11/2023 12:24 PM LDL 70 05/01/2024 08:44 AM LDL 83 05/01/2024 08:44 AM LDL 85 10/03/2018 01:46 PM LDLCALC 125 (A) 07/21/2018 12:00 AM ALT 17 10/11/2023 12:24 PM ALT 22 03/29/2019 10:03 AM HGBA1C 7.4 (H) 01/07/2024 08:14 AM HGBA1C 8.1 (H) 10/17/2019 10:40 AM documented in this encounter Plan of Treatment Upcoming Encounters Date Type Department Care Team (Late st Contact Info) Description 10/23/2024 2:40 PM EST Office Visit [facility] [address] [place] [address] Jazmine Anguiano MD [address] [place] [address] 10/23/2024 3:20 PM EST Laboratory Laboratory, [facility] [address] [place] [phone] Johny Tan [address] [place] [address] 11/13/2024 10:30 AM EDT Office Visit Cardiology, [facility] [address] [place] [address] Ottoniel Mayorga PA-C [address] [place] [address] 05/01/2025 3:00 PM EDT Office Visit Cardiology, [facility] [address] [place] [address] Ottoniel Mayorga PA-C [address] [place] [address] Health Maintenance Due Date Last Done Comments [...] as of this encounter Visit Diagnoses Diagnosis Essential hypertension with goal blood pressure less than 130/80 documented in this encounter Care Teams Electrical Controls Designer Relationship Specialty Start Date End Date Jazmine Anguiano MD [address] [place] [address] PCP - General Internal Medicine 12/06/23 documented as of this encounter
--- OUTSIDE RECORDS SUMMARY | 2024-11-07 04:59 | External Medical Summary ---
Author Name Unknown Address Unknown Organization K01:LABORATORY [facility] - [address] [facility] [address] [facility] [address] Laboratory Report Ordering Provider Test Date Status DEBRA HOOVER 10/23/2024 16:08:59 Final Observation Date Value Abnormality Reference (Units ) Status HbA1C 10/23/2024 16:08:59 8.2 Above high normal 4. 0-5.6 (%) Final The use of HbA1c to monitor glycemic status is based on normal hemoglobin and HbA composition. This test should not be used in patients with abnormal hemoglobin that affects the half life of the red blood cell or the in vivo glycation rates. Glucose, estimated average 10/23/2024 16:08:59 189 Above high normal <126 (mg/dL) Fin [facility] Location LABORATORY [facility] - [address] [facility] [address]
--- OUTSIDE RECORDS SUMMARY | 2024-11-07 04:59 | External Medical Summary ---
Author Name Unknown Address Unknown Organization K01:LABORATORY [facility] - [address] [place] [address] [place] [address] Laboratory Report Ordering Provider Test Date Status DEBRA HOOVER 10/23/2024 16:08:59 Final Observation Date Value Abnormality Reference (Units ) Status WBC, Total 10/23/2024 16:08:59 9.05 4.00-10.8 0 (K/uL) Final RBC 10/23/2024 16:08:59 5.50 4.50-5.25 (M/uL) Final Hemoglobin 10/23/2024 16:08:59 12.7 Below low normal 14 .0-16.8 (g/dL) Final Anemia reflex testing trigge rs on a HGB < 12.0 for Females and HGB < 13.0 for Males in accordance with the WHO Anemia Guidelines
Anemia reflex testing triggers on a HGB < 12.0 for Females and HGB < 13.0 for Males in accordance with the WHO Anemia Guidelines HCT 10/23/2024 16:08:59 44.8 40.0-48.4 (%) Final MCV 10/23/2024 16:08:59 81.5 82.0-99.5 (fL) Final MCH 10/23/2024 16:08:59 23.1 27.0-34.0 (pg) Final MCHC 10/23/2024 16:08:59 28.3 32.0-36.0 (g/dL) Final RDW 10/23/2024 16:08:59 18.5 11.5-15.5 (%) Final Platelets 10/23/2024 16:08:59 389 140-400 (K /uL) Final MPV 10/23/2024 16:08:59 10.1 6.6-11.1 ( fL) Final Nucleated erythrocytes/100 leukocytes [Ratio] in Blood by Automated count 10/23/2024 16:08:59 0 <=0 (/100 WBCs) Jose Francisco ruiz Performing Location LABORATORY [facility] - [address] [facility] [address]
--- OUTSIDE RECORDS SUMMARY | 2024-11-07 04:59 | External Medical Summary ---
Author Name Unknown Address Unknown Organization K01:LABORATORY [facility] - [address] [place] [address] Laboratory Report Ordering Provider Test Date Status DEBRA HOOVER 10/23/2024 16:08:59 Final Observation Date Value Abnormality Reference (Units ) Status Creatinine 10/23/2024 16:08:59 1.5 Above high normal 0.6-1.2 (mg/dL) Final Glomerular filtration rate/1.73 sq M.predicted [Volume Rate/Area] in Serum, Plasma or Blood by Creatinine-based formula (CKD-EPI) 10/23/2024 16:08:59 52 Below low normal >=60 (mL/min) Final eGFR is calculated based on the CKD-EPI 2020 equation. Performing Location LABORATORY [facility] - [address] [place] [address]
--- OUTSIDE RECORDS SUMMARY | 2024-11-07 04:59 | External Medical Summary ---
Author Name Unknown Address Unknown Organization K01:LAB[facility]ORY [facility] [place] [id number] Laboratory Report Ordering Provider Test Date Status DEBRA HOOVER 10/23/2024 16:08:59 Final Observation Date Value Abnormality Reference (Units ) Status Retic, % (auto) 10/23/2024 16:08:59 2.08 Above high normal 0.80-1.90 (%) Final Reticulocytes, Absolute 10/23/2024 16:08:59 112.3 Above high normal 31.3-100.1 (K/uL) Final Reticulocyte fraction, immature 10/23/2024 16:08:59 26.4 Above high normal 2.5-20.6 (%) Final Reticulocyte HGB 10/23/2024 16:08:59 22.8 Below low normal 29.7-37.4 (pg) Final Performing Location LABORATORY [facility] - [facility] [place] [address] [id number]
--- OUTSIDE RECORDS SUMMARY | 2024-11-07 04:59 | External Medical Summary | Summary of Care ---
Author Name Unknown Organization [facility] Address [address] [facility] [place] [address] Phone [phone] Care Team Providers Care Armature Straightener Name Role Phone Jazmine Anguiano MD Primary Care Provider Reason for Referral * Evaluate & Treat - Unlimited Visits (Within 30 days (routine)) - Authorized Specialty Diagnoses / Procedures Referred By Contac t Referred To Contact Pharmacist / Pharmacy Diagnoses Type 2 diabetes mellitus with hemoglobin A1c goal of less than 7.0% ([facility]) Jazmine Anguiano MD [address] [place] [address] Phone: tel: fax: Referral ID Status Reason Start Date Expiration Date Visits Requested Visits Authorized [id number] Authorized Specialty Services Required 10/31/2024 04/29/2025 99 99 Question Answer Referral Priority Within 30 days (routine) Where should this appointment be scheduled? [facility] Referring Provider Role: Primary Care Reason for Referral: DM Target A1c: < 7 Comments Pharmacist Medication Therapy Management: Minimum frequency patient should be seen in person for medication management: as appropriate per clinical condition and patient status By my signature, I understand that my patient Sharad James will have his medication therapy managed by the [facility] Medication Therapy Disease Management Clinic ([facility]) per established policies, procedures, and protocols. I also certify that this referral may serve as an initiation of service for the management of drug therapy in the above noted patient. [facility] providers will be responsible for scheduling patient visits, obtaining appropriate laboratory studies, and adjusting medication management therapy per patient's need, in addition to those roles spelled out in the clinic policy, procedures, and drug management protocols. I understand that the service provided by the [facility] is voluntary and have informed patient that they can refuse the service at their discretion. I am aware that the [facility] Clinic will provide me with a copy of the patient encounter via [facility]. I authorize the [facility] to carry out these activities on my behalf. I consider this program to be a necessary part of the patient's medical care. Jazmine Anguiano MD Reason for Visit * Reason Onset Date Comments Test Results 10/31/2024 Encounter Details Date Type Department Care Team (Late st Contact Info) Description 10/31/2024 Telephone Family Practice [facility] [address] [place] [address] Jazmine Anguiano MD [address] [place] [address] Test Results Allergies Active Allergy Reactions Criticality Noted Date Comments Statins 10/15/2022 Joint pain documented as of this encounter (statuses as of 10/31/2024) Medications Cholecalciferol (VITAMIN D3) 2000 units Tablet [...] Tablet by mouth in the morning. Active [place]-3 Fish Oil 1200 MG Oral Capsule Take [...] Active CPAP every night at bedtime. Active Orgtzdl-Ecgthb-Byj ll Pertussis 5-2.5-18.5 LF-MCG/0.5 Suspension Prefilled Syringe [...] as of this encounter (statuses as of 10/31/2024) Active Problems Problem Noted Date Diagnosed Date [...] cardiomyopathy 10/03/2018 Coronary artery disease invo lving [place] coronary artery of [place] heart without angina pectoris 10/03/2018 documented as of this encounter (statuses as of 10/31/2024) Resolved Problems Problem Noted Date Diagnosed Date Resolved Date Obesity, morbid (more than 1 00 lbs over ideal weight or BMI > 40) 05/27/2021 12/06/2023 Body mass index (BMI) of 40. 0 to 44.9 in adult 10/30/2019 06/05/2021 Overview: Per Obesity protocol documented as of this encounter (statuses as of 10/31/2024) Immunizations Name Administration Dates Next Due COVID-19 mRNA, LNP-s, No Pre serve, 2-Dose Series ([place]) 11/09/2020,10/19/2020 COVID-19, MRNA-LNP, PF, 50 M CG/0.5 [...] 11/13/2024 10:30 AM EDT Office Visit Cardiology, [facility] [address] [place] [address] Justina Brower PA-C [address] [place] [address] 12/26/2024 10:00 AM EDT Office Visit Pharmacy, [facility] [address] [address] Tan, [facility] [address] [place] [address] 05/01/2025 3:00 PM EDT Office Visit Cardiology, [facility] [address] [address] Justina Brower PA-C [address] [place] [address] Scheduled Orders Name Type Priority Associated Diagnoses Orde r Schedule BASIC METABOLIC PANEL Lab Routine Elevated serum creatinine Expected: 11/07/2024, Expires: 10/31/2025 MAGNESIUM Lab Routine Elevated serum creatinine Expected: 11/07/2024, Expires: 10/31/2025 Scheduled Referrals Name Type Priority Associated Diagnoses Orde r Schedule PHARMACIST MEDS THERAPY MGMT REFERRAL OP Referral Within 30 days (routine) Type 2 diabetes mellitus with hemoglobin A1c goal of less than 7.0% (HCC) Ordered: 10/31/2024 Health Maintenance Due Date Last Done Comments [...] hemoglobin A1c goal of less than 7.0% (HCC)- Primary Elevated serum creatinine Other nonspecific findings on examination of blood documented in this encounter Care Teams Armature Straightener Relationship Specialty Start Date End Date Jazmine Anguiano MD [address] [place] [address] PCP - General Internal Medicine 12/06/23 documented as of this encounter
--- OUTSIDE RECORDS SUMMARY | 2024-11-07 04:59 | External Medical Summary | Summary of Care ---
Author Name Unknown Organization [facility] Address [address] [facility] [place] [address] Phone [phone] Care Team Providers Care Wellness Nurse Rn Name Role Phone Jazmine Anguiano MD Primary Care Provider Reason for Visit * Reason Comments eRx-Medication Refill Encounter Details Date Type Department Care Team (Late st Contact Info) Description 10/26/2024 Refill Cardiology, [facility] [address] [place] [address] Ottoniel Mayorga PA-C [address] [place] [address] Encounter for long-term (current) use of medications*; Nonischemic cardiomyopathy (HCC) Allergies Active Allergy Reactions Criticality Noted Date Comments Statins 10/15/2022 Joint pain documented as of this encounter (statuses as of 10/27/2024) Medications Cholecalciferol (VITAMIN D3) 2000 units Tablet [...] Tablet by mouth in the morning. Active [place]-3 Fish Oil 1200 MG Oral Capsule Take [...] Active CPAP every night at bedtime. Active Qlyzrbe-Rzcodw-Mo ell Pertussis 5-2.5-18.5 LF-MCG/0.5 Suspension Prefilled Syringe [...] IN THE MORNING 90 Tablet 025 Active Mometasone Furoate 110 MCG/ACT Inhalation Aerosol Powder Breath Activated (Asmanex)Indicati ons:Bronchitis, complicated Inhale 1 Puff by mouth every evening. 1 Each 1 025 Active Metoprolol Succinate ER 50 MG Oral Tablet Extended Release 24 Hour (toPROL XL)Indications:Pa roxysmal atrial fibrillation (HCC) Take 1 Tablet by mouth in the morning. Take along with 100mg tablet for a total of 150mg in AM.. 90 Tablet 3 025 Active Metoprolol Succinate ER 100 MG Oral Tablet Extended Release 24 Hour (toPROL XL)Indications:At rial fibrillation, unspecified type (HCC),Essential hypertension with goal blood pressure less than 130/80 Take 1 Tablet by mouth in the morning and 1 Tablet before bedtime. 180 Tablet 3 025 Active Spironolactone 25 MG Oral Tablet (Aldactone)Indica tions:Nonischemic cardiomyopathy (HCC) TAKE 1/2 TABLET BY MOUTH IN THE MORNING 45 Tablet 025 Active Spironolactone 25 MG Oral Tablet (Aldactone)Indica tions:Nonischemic cardiomyopathy (HCC) Take 0.5 Tablets by mouth in the morning. 45 Tablet 3 024 2024 Discontinued documented as of this encounter (statuses as of 10/27/2024) Active Problems Problem Noted Date Diagnosed Date [...] cardiomyopathy 10/03/2018 Coronary artery disease invo lving [place] coronary artery of [place] heart without angina pectoris 10/03/2018 documented as of this encounter (statuses as of 10/27/2024) Resolved Problems Problem Noted Date Diagnosed Date Resolved Date Obesity, morbid (more than 1 00 lbs over ideal weight or BMI > 40) 05/27/2021 12/06/2023 Body mass index (BMI) of 40. 0 to 44.9 in adult 10/30/2019 06/05/2021 Overview: Per Obesity protocol documented as of this encounter (statuses as of 10/27/2024) Immunizations Name Administration Dates Next Due COVID-19 mRNA, LNP-s, No Pre serve, 2-Dose Series (HOMETRAX) 11/09/2020,10/19/2020 COVID-19, MRNA-LNP, PF, 50 M CG/0.5 [...] Telephone Encounter - Ottoniel Mayorga PA-C - 10/27/2024 11:54 AM EST Signed Prescriptions: Disp Refills Spironolactone 25 MG Oral Tablet ([place]*45 Tab*0 Sig: TAKE 1/2 TABLET BY MOUTH IN THE MORNING Authorizing Provider: OTTONIEL MAYORGA * Telephone Encounter - Angelito Reynaga, [facility] - 10/27/2024 10:39 AM EST Pending Prescriptions: Disp Refills Spironolactone 25 MG Oral Tablet ([place]*45 Tab*0 Sig: TAKE 1/2 TABLET BY MOUTH IN THE MORNING * Telephone Encounter - Angelito Reynaga, [facility] - 10/27/2024 10:22 AM EST Creatinine at [facility] during recent admission was 1.43 on 10/16/24. Most recent creatinine 1.50, stablefor now. Result from 10/23 not yet reviewed by ordering provider. Unable to authorize medication refills for pended medication(s) at this time. Part of the protocol criteria used for refill authorization was not satisfied. Patient scheduled to see you 11/13/24, lastseen by you and Dr. Aldridge on 11/08/23. Please approve if appropriate. Magnesium lab pended for signing for next routine lab work. Angelito Reynaga, [facility] Clinical Pharmacist Cardiology Department [phone] 10/27/2024,10:22 AM * Telephone Encounter - Anu Varghese two - 10/26/2024 4:25 AM ESTPending Prescriptions: Disp Refills Spironolactone 25 MG Oral Tablet [Pharmacy*45 Tab*3 Sig: TAKE 1/2 TABLET BY MOUTH IN THE MORNING * Telephone Encounter - Anu Varghese - 10/26/2024 4:23 AM EST Did you pend patient's preferred pharmacy and medication before forwarding?yes Pharmacy: [id number] [address] [facility] Pending Prescriptions: Disp Refills Spironolactone 25 MG Oral Tablet (Aldacto*45 Tab*3 Sig: TAKE 1/2 TABLET BY MOUTH IN THE MORNING Last Visit: 11/10/2023 (in office), 07/24/2020 (telemedicine) Next Visit: 11/13/2024 If no future appointments scheduled, and last appointment is greater than a year ago, please schedule patient for a follow-up appointment Last date the medication was ordered: 11/10/2023 Is this request for a controlled substance?No Urine Drug Screen:No results found for this or any previous visit. Patient Phone Numbers Labs: Lab Results Component Value Date/Time CREAT 1.5 (H) 10/23/2024 04:08 PM CREAT 1.1 10/17/2019 10:40 AM POTASSIUM 4.8 10/11/2023 12:24 PM POTASSIUM 4.7 10/17/2019 10:40 AM TSH 1.91 10/11/2023 12:24 PM LDL 70 05/01/2024 08:44 AM LDL 83 05/01/2024 08:44 AM LDL 85 10/03/2018 01:46 PM LDLCALC 125 (A) 07/21/2018 12:00 AM ALT 17 10/11/2023 12:24 PM ALT 22 03/29/2019 10:03 AM HGBA1C 8.2 (H) 10/23/2024 04:08 PM HGBA1C 8.1 (H) 10/17/2019 10:40 AM documented in this encounter Plan of Treatment Upcoming Encounters Date Type Department Care Team (Late st Contact Info) Description 11/13/2024 10:30 AM EDT Office Visit Cardiology, [facility] [address] [place] [address] Ottoniel Mayorga PA-C [address] [place] [address] 05/01/2025 3:00 PM EDT Office Visit Cardiology, [facility] [address] [place] [address] Ottoniel Mayorga PA-C [address] [place] [address] Scheduled Orders Name Type Priority Associated Diagnoses Orde r Schedule MAGNESIUM Lab Routine Encounter for long-term (current) use of medications Expected: 12/22/2024, Expires: 10/27/2025 Health Maintenance Due Date Last Done Comments [...] for long-term (current) use of other medications Nonischemic cardiomyopathy (HCC) Other primary cardiomyopathies documented in this encounter Care Teams Wellness Nurse Rn Relationship Specialty Start Date End Date Jazmine Anguiano MD [address] [place] [address] [address] PCP - General Internal Medicine 12/06/23 documented as of this encounter
--- OUTSIDE RECORDS SUMMARY | 2024-11-07 04:59 | External Medical Summary | Summary of Care ---
Author Name Unknown Organization [facility] Address [address] [facility] [place] [address] Phone [phone] Care Team Providers Care Health Economist Name Role Phone Jazmine Anguiano MD Primary Care Provider Encounter Details Date Type Department Care Team (Late st Contact Info) Description 10/16/2024 Result Scan Unspecified Department <No scans attached> Allergies Active Allergy Reactions Criticality Noted Date Comments Statins 10/15/2022 Joint pain documented as of this encounter (statuses as of 11/01/2024) Medications Cholecalciferol (VITAMIN D3) 2000 units Tablet [...] Tablet by mouth in the morning. Active [place]-3 Fish Oil 1200 MG Oral Capsule Take [...] Active CPAP every night at bedtime. Active Ieloadb-Qxkojf-Bdl ll Pertussis 5-2.5-18.5 LF-MCG/0.5 Suspension Prefilled Syringe [...] 25 Active Benzonatate 100 MG Oral Capsule (Carlito Cruz)Indications :URTI (acute upper respiratory infection),Acute cough Take [...] as of this encounter (statuses as of 11/01/2024) Active Problems Problem Noted Date Diagnosed Date [...] cardiomyopathy 10/03/2018 Coronary artery disease invo lving [place] coronary artery of [place] heart without angina pectoris 10/03/2018 documented as of this encounter (statuses as of 11/01/2024) Resolved Problems Problem Noted Date Diagnosed Date Resolved Date Obesity, morbid (more than 1 00 lbs over ideal weight or BMI > 40) 05/27/2021 12/06/2023 Body mass index (BMI) of 40. 0 to 44.9 in adult 10/30/2019 06/05/2021 Overview: Per Obesity protocol documented as of this encounter (statuses as of 11/01/2024) Immunizations Name Administration Dates Next Due COVID-19 mRNA, LNP-s, No Pre serve, 2-Dose Series (Rysto) 11/09/2020,10/19/2020 COVID-19, MRNA-LNP, PF, 50 M CG/0.5 [...] No 11/08/2023 Does the household have a [facility] source of income? (Household - for [...] 11/13/2024 10:30 AM EDT Office Visit Cardiology, [facility] [address] [place] [address] Justina Brower PA-C [address] [place] [address] 12/26/2024 10:00 AM EDT Office Visit Pharmacy, [facility] [address] [place] [address] [facility] [address] [place] [address] 05/01/2025 3:00 PM EDT Office Visit Cardiology, [facility] [address] [place] [address] Justina Brower PA-C [address] [place] [address] Health Maintenance Due Date Last Done Comments [...] Procedure Name Priority Date/Time Associated Diagnosis Comments ECHOCARDIOLOGY SCANNED RESULT 10/16/2024 documented in this encounter Results * ECHOCARDIOLOGY SCANNED RESULT (10/16/2024) 10/16/2024 us No Physician Data Unknown ECHOCARDIOLOGY Final Result documented in this encounter Care Teams Health Economist Relationship Specialty Start Date End Date Jazmine Anguiano MD [address] [place] [phone] PCP - General Internal Medicine 12/06/23 documented as of this encounter
--- OUTSIDE RECORDS SUMMARY | 2024-11-07 05:00 | External Medical Summary | Summary of Care ---
Author Name Unknown Organization [facility] Address [address] [facility] [place] [address] Phone [phone] Care Team Providers Care Post Hole Digger Name Role Phone Jazmine Anguiano MD Primary Care Provider Reason for Visit * Reason Onset Date Comments Hospital Follow-Up 10/18/2024 Encounter Details Date Type Department Care Team (Late st Contact Info) Description 10/18/2024 Telephone Cardiology, [facility] [address] [place] [address] Justina Brower PA-C [address] [place] [phone] Hospital Follow-Up Allergies Active Allergy Reactions Criticality [...] hemoglobin A1c goal of less than 7.0% ([facility]) Use up to 4 times a day E11.9 1 Kit 01/30/20 21 Active Aspirin 81 MG Oral Tablet Delayed Release Take 1 Tablet by mouth in the morning. Active [place]-3 Fish Oil 1200 MG Oral Capsule Take 1 Cap by mouth daily. Active Brimonidine Tartrate-Timolol 0.2-0.5 % Ophthalmic Solution (Combigan) Instill 1 Drop into both eyes in the morning and 1 Drop before bedtime. Active OneTouch Verio In Vitro Strip (Glucose Blood)Indications: Type 2 diabetes mellitus with hemoglobin A1c goal of less than 7.0% ([facility]) Use up to 4 times a [...] Hour (toPROL XL)Indications:Atr ial fibrillation, unspecified type ([facility]),Essential hypertension with goal blood pressure less than [...] Active CPAP every night at bedtime. Active Sratwdd-Jnwore-Pzh ll Pertussis 5-2.5-18.5 LF-MCG/0.5 Suspension Prefilled Syringe [...] Oral Tablet (Cordarone)Indicat ions:Coronary artery disease involving [place] coronary artery of [place] heart without angina pectoris,Essential hypertension with goal [...] cardiomyopathy 10/03/2018 Coronary artery disease invo lving [place] coronary artery of [place] heart without angina pectoris 10/03/2018 documented as [...] mRNA, LNP-s, No Pre serve, 2-Dose Series (JANZZ) 11/09/2020,10/19/2020 COVID-19, MRNA-LNP, PF, 50 M CG/0.5 [...] 2024 Appointment Provider:Justina Brower PA-C in CARDIOLOGY [facility] * Telephone Encounter - Justina Norton RN - 10/18/2024 4:15 PM EST Sharad James was discharged from [facility] on 10/17/24. Per Farooq Quiroz PA-c: Close outpatient cardiology follow-up with Mrs. Inocente DELONG documented in this encounter Plan of Treatment Upcoming Encounters Date Type Department Care Team (Late st Contact Info) Description 10/23/2024 2:40 PM EST Office Visit Family Practice [facility] [address] [place] [phone] Jazmine Anguiano MD [address] [place] [address] 11/13/2024 10:30 AM EDT Office Visit Cardiology, [facility] [address] [place] [address] Justina Brower PA-C [address] [place] [address] 05/01/2025 3:00 PM EDT Office Visit Cardiology, [facility] [address] [place] [address] Justina Brower PA-C [address] [place] [address] Health Maintenance Due Date Last Done Comments [...] filedocumented as of this encounter Care Teams Post Hole Digger Relationship Specialty Start Date End Date Jazmine Anguiano MD [address] [place] [address] PCP - General Internal Medicine 12/06/23 documented as of this encounter
--- OUTSIDE RECORDS SUMMARY | 2024-11-07 05:00 | External Medical Summary | Summary of Care ---
Author Name Unknown Organization [facility] Address [address] [place] [address] Phone [phone] Care Team Providers Care Oncology Registrar Name Role Phone Jazmine Anguiano MD Primary Care Provider Reason for Visit * Reason Onset Date Comments Hospital Follow-Up 10/18/2024 [facility] d/c Encounter Details Date Type Department Care Team (Late st Contact Info) Description 10/18/[address] [facility] [address] [facility] [place] [address] Flakita Ambrose, ANA PAULA Hospital Follow-Up ([facility] d/c ) Allergies Active Allergy Reactions Criticality Noted Date [...] Tablet by mouth in the morning. Active [place]-3 Fish Oil 1200 MG Oral Capsule Take [...] Active CPAP every night at bedtime. Active Fkyhxck-Zulrjs-Bxc ll Pertussis 5-2.5-18.5 LF-MCG/0.5 Suspension Prefilled Syringe (Boostrix) Inject into a large muscle. 0.5 mL 02/14/20 24 Active metFORMIN HCl 500 MG Oral Tablet (Glucophage)Indica tions:Type 2 diabetes mellitus with hemoglobin A1c goal of less than 7.0% ([facility]) TAKE 1 TABLET BY MOUTH TWICE A [...] Oral Tablet (Cordarone)Indicat ions:Coronary artery disease involving [place] coronary artery of [place] heart without angina pectoris,Essential hypertension with goal [...] cardiomyopathy 10/03/2018 Coronary artery disease invo lving [place] coronary artery of [place] heart without angina pectoris 10/03/2018 documented as [...] mRNA, LNP-s, No Pre serve, 2-Dose Series (AdorStyle) 11/09/2020,10/19/2020 COVID-19, MRNA-LNP, PF, 50 M CG/0.5 [...] do you feel lonely or isolated from ose around you? Never 11/08/2023 Financial Resource [...] encounter Miscellaneous Notes * Telephone Encounter - Flakita Ambrose RN - 10/19/2024 11:06 AM EST MARINO Attempted Phone Call Second Attempt Call Outcome Left Voicemail/Message * Telephone Encounter - Flakita Ambrose RN - 10/18/2024 8:30 AM EST Images from the original note were not included. Transitions of Care Note Reason for Referral:Recent Admission Phone visit for follow up: MARINO Admitted to: [facility], Date: 10/16 Discharged to: home, Date: 10/17 Diagnosis driving hospitalization: A fib Attempted Phone Call First Attempt Call Outcome Left Voicemail/Message documented in this encounter Plan of Treatment Upcoming Encounters Date Type Department Care Team (Late st Contact Info) Description 10/23/2024 2:40 PM EST Office Visit Family Practice [facility] [address] [place] [address] Jazmine Anguiano MD [address] [place] [address] 11/13/2024 10:30 AM EDT Office Visit Cardiology, [facility] [address] [place] [address] Justina Brower PA-C [address] [place] [address] 05/01/2025 3:00 PM EDT Office Visit Cardiology, [facility] [address] [place] [address] Justina Brower PA-C [address] [place] [address] Health Maintenance Due Date Last Done Comments [...] filedocumented as of this encounter Care Teams Oncology Registrar Relationship Specialty Start Date End Date Jazmine Anguiano MD [address] [place] [address] PCP - General Internal Medicine 12/06/23 documented as of this encounter
[2024-11-07 05:51] LABS: Basophils # (auto) 0.07 K/uL (0.00-0.20); Basophils % (auto) 0.9 %; Eosinophils # (auto) 0.23 K/uL (0.00-0.50); Eosinophils % (auto) 2.9 %; Hematocrit (blood only) 38.3 % (42.0-52.0); Hemoglobin 11.8 g/dl (14.0-18.0); Immature Granulocytes # (auto) 0.03 K/uL (0.01-0.20); Immature Granulocytes % (auto) 0.4 %; Lymphocytes # (auto) 1.16 K/uL (1.20-3.40); Lymphocytes % (auto) 14.9 %; Mean Corpuscular Hemoglobin 23.2 pg (25.0-34.0); Mean Corpuscular Hgb Conc 30.8 g/dL (32.0-36.0); Mean Corpuscular Volume 75.4 fL (80.0-100.0); Mean Platelet Volume 10.1 fL (9.4-12.4); Monocytes # (auto) 1.31 K/uL (0.11-0.59); Monocytes % (auto) 16.8 %; Neutrophils % (auto) 64.1 %; Platelet Count 262 K/uL (130-400); RDW Standard Deviation 48.1 fL (36.4-46.3); Red Blood Count 5.08 M/uL (4.70-6.10)
[2024-11-07 06:08] LABS: Anion Gap 6 (3-11); BUN Creatinine Ratio 24.6 (10-20); Blood Urea Nitrogen 28 mg/dl (6-23); Calcium 9.7 mg/dl (8.6-10.3); Carbon Dioxide 28 mmol/L (21-32); Chloride 102 mmol/L (98-107); Creatinine Clr Calc Pharmacy 78.5 ml/min; Glucose 179 mg/dl (70-99(Fasting)); Magnesium 1.8 mg/dl (1.7-2.4); Potassium 4.7 mmol/L (3.5-5.1); Sodium 136 mmol/L (136-145)
[2024-11-07 06:31] LABS: Thyroid Stimulating Hormone < 0.010 uIu/ml (0.300-4.500)
[2024-11-07] MEDS: FUROSEMIDE INJ 20 MG/2 ML VIAL IV SCH ×2 (08:19→14:52)
[2024-11-07] MEDS: TIMOLOL MALEATE 0.5% OP SOLN 5 ML BTL OPR SCH (08:20)
[2024-11-07] MEDS: ASPIRIN 81 MG ECTAB PO SCH (08:20)
[2024-11-07] MEDS: VALSARTAN/SACUBITRIL 26/24MG TAB PO SCH (08:20)
[2024-11-07] MEDS: METOPROLOL SUCC 50MG EXT REL TAB PO SCH ×2 (08:20→21:22)
[2024-11-07] MEDS: CHOLECALCIFEROL 25 MCG (1000 UNITS) TAB PO SCH (08:20)
[2024-11-07] MEDS: SPIRONOLACTONE 12.5 MG TAB PO SCH (08:20)
[2024-11-07] MEDS: BRIMONIDINE TARTRATE 0.2% 5ML OPR SCH (08:20)
[2024-11-07] MEDS: PANTOprazole 40 MG TAB PO SCH (08:21)
[2024-11-07] MEDS: MULTIVITAMIN TAB PO SCH (08:21)
[2024-11-07] MEDS: INSULIN ASPART PER UNIT CHARGE SC SCH (08:27)
[2024-11-07 08:28] LABS: Estimated Average Glucose 206 mg/dl; Hemoglobin A1C 8.8 % (4.5-5.6)
--- NOTE | 2024-11-07 08:36 | Hospitalist Progress Note ---
Date of Service November 07, 2024 Assessment & Plan (1) Acute systolic CHF (congestive heart failure): Plan: 69 yo M with type 2 diabetes, hyperlipidemia, obstructive sleep apnea, nonischemic cardiomyopathy status post ICD, moderate mitral regurgitation, aortic root enlargement, paroxysmal atrial fibrillation, history of CAD, hypertension, primary open-angle glaucoma both eyes mild stage, presents with worsening lower extremity edema. Patient states in the nighttime when sleeping is having cough. While resting is okay but with the exertion is having dyspnea. Denies chest pain. No fevers. No headache. No runny nose or sore throat. No headaches. No abdominal pain. No nausea. Normal bowel and bladder movements. In the ER he received a dose of Lasix and a dose of metoprolol. He states after Lasix he micturated and thinks swelling in the lower extremities coming down. Patient also developed macular rash on upper extremities and back which is itchy since last 2 weeks. No recent new medications. Acute systolic CHF Nonischemic cardiomyopathy Echo done 10/12/2024 shows EF of 25 to 30%. Global hypokinesis of left ventricle. Right ventricle systolic pressure is moderately high at 50 to 60 mmHg Received IV Lasix 20 mg in the ER Cont. IV Lasix 40 mg bid as per cardiology. Continue home spironolactone. Continue home metoprolol succinate and Entresto with holding parameters. Telemetry Daily weights and I's and O's CT chest - no pna Cardiology consulted - acute on chronic HFrEF. Nonischemic cardiomyopathy with left ventricular ejection fraction 25-30% confirmed by recent echocardiogram in September. Heart rates borderline elevated on admission. Patient notes significant weight gain, dyspnea, and orthopnea. Amiodarone recently discontinued due to hyperthyroidism. Rate control strategy adopted. Recommendations: * Titrate metoprolol to 150 mg twice daily. * Continue anticoagulation with Xarelto. * IV Lasix 40 mg twice daily ordered. * Continue Entresto as ordered. * Consider titration of spironolactone to 25 mg daily pending clinical course. * Monitor fluid balance, daily weight, GFR, and electrolytes. * Outpatient electrophysiology consultation to consider BiV ICD upgrade. Atrial fibrillation On metoprolol succinate and Xarelto Amiodarone was stopped last admission because of abnormal thyroid function Obstructive sleep apnea On CPAP nightly Hyperthyroidism Thought to be from amiodarone which is stopped now Follow repeat labs Can discuss with Endo Type 2 diabetes Hold metformin Sliding scale Will monitor Hypertension Metoprolol succinate, Entresto with holding parameters Also on diuretics GERD On omeprazole Nonocclusive CAD On Repatha, beta-marcella and aspirin Rash Macular rash on extremities and back Benadryl cream for now Follow-up with PCP and dermatology DVT prophylaxis On Xarelto Disposition Telemetry Full code. Admission and Anticipated Discharge Date Admission Date: November 06, 2024 Subjective Pt seen in follow up of CHF, edema Currently sitting up in bed in NAD, pt's present at the bedside Pt reports LE edema is improved Currently denies chest pain or shortness of bed + cough w/ deep inspiration Review of Systems Review of Systems: All systems reviewed & are unremarkable except as noted in Subjective Physical Exam Physical Exam: General- morbidly obese elderly M in NAD Head- atraumatic Eyes- PERRL. Neck- supple, no JVD. Lungs- clear to auscultation no wheezing or crackles Heart- regular rhythm; no murmur Abdomen- normal bowel sounds, soft, nontender, no distension Extremities- b/l lower ext edema present. no erythema seen Neuro- alert, oriented PERRL, no facial palsy; no dysarthria; moves extremities. Skin- macular rash seen on upper extremities and back Results & Data Results & Data Vital Signs (Past 12 Hours) Vital Signs Temp Pulse Pulse Resp BP BP BP 11/07/24 07:56 37 C 100 H 18 120/89 120/89 11/07/24 07:12 109 H 11/07/24 02:37 36.7 C 106 H 18 99/68 L 11/07/24 01:38 36.4 C L 90 18 90/67 L 11/07/24 01:36 36.4 C L 115 H 18 90/67 L 11/07/24 01:30 11/07/24 01:25 126 H 11/07/24 00:57 107 H 18 111/83 11/07/24 00:00 99 H 18 115/84 11/06/24 22:58 119 H 11/06/24 22:00 109 H 18 92/72 L Pulse Ox O2 Del Method 11/07/24 07:56 97 Room Air 11/07/24 07:12 11/07/24 02:37 98 Room Air 11/07/24 01:38 98 Room Air 11/07/24 01:36 98 Room Air 11/07/24 01:30 Room Air 11/07/24 01:25 11/07/24 00:57 97 Room Air 11/07/24 00:00 98 Room Air 11/06/24 22:58 11/06/24 22:00 96 Room Air Laboratory Results 11/07/24 11/07/24 11/07/24 Range/Units 07:57 07:51 05:36 WBC 7.80 (4.8-10.8) K/ul RBC 5.08 (4.70-6.10) M/uL Hgb 11.8 L (14.0-18.0) g/dl Hct 38.3 L (42.0-52.0) % MCV 75.4 L (80.0-100.0) fL MCH 23.2 L (25.0-34.0) pg MCHC 30.8 L (32.0-36.0) g/dL RDW Std Deviation 48.1 H (36.4-46.3) fL RDW Coeff of Jose 18.0 H (11.5-14.5) % Plt Count 262 (130-400) K/uL MPV 10.1 (9.4-12.4) fL Immature Gran % (Auto) 0.4 % Neut % (Auto) 64.1 % Lymph % (Auto) 14.9 % [place] % (Auto) 16.8 % Eos % (Auto) 2.9 % Baso % (Auto) 0.9 % Neut # (Auto) 5.00 (1.40-6.50) K/uL Lymph # (Auto) 1.16 L (1.20-3.40) K/uL [place] # (Auto) 1.31 H (0.11-0.59) K/uL Eos # (Auto) 0.23 (0.00-0.50) K/uL Baso # (Auto) 0.07 (0.00-0.20) K/uL Immature Gran # (Auto) 0.03 (0.01-0.20) K/uL PT (9.0-12.0) Seconds INR (0.9-1.1) APTT (21-31) Seconds PTT Ratio Sodium 136 (136-145) mmol/L Potassium 4.7 (3.5-5.1) mmol/L Chloride 102 (98-107) mmol/L Carbon Dioxide 28 (21-32) mmol/L Anion Gap 6 (3-11) BUN 28 H (6-23) mg/dl Creatinine 1.14 (0.6-1.4) mg/dl Est Cr Clr Drug Dosing 78.5 eGFR 70.05 BUN/Creatinine Ratio 24.6 H (10-20) Glucose 179 H (70-99(Fasting)) mg/dl POC Glucose 181 H 252 H (70-99) mg/dl Estimat Average Glucose 206 mg/dl Hemoglobin A1c 8.8 H (4.5-5.6) % Calcium 9.7 (8.6-10.3) mg/dl Magnesium 1.8 (1.7-2.4) mg/dl Total Bilirubin (0.2-1.0) mg/dl AST (13-39) U/L ALT (7-52) U/L Alkaline Phosphatase (34-104) U/L Troponin I High Sens (0-20) pg/ml B-Natriuretic Peptide (0-100) pg/ml Total Protein (6.0-8.3) gm/dl Albumin (3.4-5.0) gm/dl Globulin (2.5-4.0) gm/dl Albumin/Globulin Ratio (0.9-2) TSH < 0.010 L (0.300-4.500) uIu/ml Free T4 (0.61-1.60) ng/dl Adenovirus (PCR) (NotDetected) B. pertussis DNA (PCR) (NotDetected) B.parapertussis DNA PCR (NotDetected) C. pneumoniae DNA (PCR) (NotDetected) Coronavirus OC43 (PCR) (NotDetected) Coronavirus HKU1 (PCR) (NotDetected) Coronavirus 229E (PCR) (NotDetected) SARS-CoV-2 (PCR) (NotDetected) Coronavirus NL63 (PCR) (NotDetected) Human Metapneumovir PCR (NotDetected) Influenza Type A (PCR) (NotDetected) Influenza Type B (PCR) (NotDetected) M. pneumoniae (PCR) (NotDetected) Parainfluenza 1 (PCR) (NotDetected) Parainfluenza 2 (PCR) (NotDetected) Parainfluenza 3 (PCR) (NotDetected) Parainfluenza 4 (PCR) (NotDetected) RSV (PCR) (NotDetected) Entero/Rhino (PCR) (NotDetected) 11/06/24 11/06/24 11/06/24 Range/Units Unknown 21:17 18:34 WBC (4.8-10.8) K/ul RBC (4.70-6.10) M/uL Hgb (14.0-18.0) g/dl Hct (42.0-52.0) % MCV (80.0-100.0) fL MCH (25.0-34.0) pg MCHC (32.0-36.0) g/dL RDW Std Deviation (36.4-46.3) fL RDW Coeff of Jose (11.5-14.5) % Plt Count (130-400) K/uL MPV (9.4-12.4) fL Immature Gran % (Auto) % Neut % (Auto) % Lymph % (Auto) % [place] % (Auto) % Eos % (Auto) % Baso % (Auto) % Neut # (Auto) (1.40-6.50) K/uL Lymph # (Auto) (1.20-3.40) K/uL [place] # (Auto) (0.11-0.59) K/uL Eos # (Auto) (0.00-0.50) K/uL Baso # (Auto) (0.00-0.20) K/uL Immature Gran # (Auto) (0.01-0.20) K/uL PT (9.0-12.0) Seconds INR (0.9-1.1) APTT (21-31) Seconds PTT Ratio Sodium (136-145) mmol/L Potassium (3.5-5.1) mmol/L Chloride (98-107) mmol/L Carbon Dioxide (21-32) mmol/L Anion Gap (3-11) BUN (6-23) mg/dl Creatinine (0.6-1.4) mg/dl Est Cr Clr Drug Dosing eGFR BUN/Creatinine Ratio (10-20) Glucose (70-99(Fasting)) mg/dl POC Glucose (70-99) mg/dl Estimat Average Glucose mg/dl Hemoglobin A1c (4.5-5.6) % Calcium (8.6-10.3) mg/dl Magnesium (1.7-2.4) mg/dl Total Bilirubin (0.2-1.0) mg/dl AST (13-39) U/L ALT (7-52) U/L Alkaline Phosphatase (34-104) U/L Troponin I High Sens 56.9 H* (0-20) pg/ml B-Natriuretic Peptide 911 H (0-100) pg/ml Total Protein (6.0-8.3) gm/dl Albumin (3.4-5.0) gm/dl Globulin (2.5-4.0) gm/dl Albumin/Globulin Ratio (0.9-2) TSH (0.300-4.500) uIu/ml Free T4 (0.61-1.60) ng/dl Adenovirus (PCR) Not Detected (NotDetected) B. pertussis DNA (PCR) Not Detected (NotDetected) B.parapertussis DNA PCR Not Detected (NotDetected) C. pneumoniae DNA (PCR) Not Detected (NotDetected) Coronavirus OC43 (PCR) Not Detected (NotDetected) Coronavirus HKU1 (PCR) Not Detected (NotDetected) Coronavirus 229E (PCR) Not Detected (NotDetected) SARS-CoV-2 (PCR) Not Detected (NotDetected) Coronavirus NL63 (PCR) Not Detected (NotDetected) Human Metapneumovir PCR Not Detected (NotDetected) Influenza Type A (PCR) Not Detected (NotDetected) Influenza Type B (PCR) Not Detected (NotDetected) M. pneumoniae (PCR) Not Detected (NotDetected) Parainfluenza 1 (PCR) Not Detected (NotDetected) Parainfluenza 2 (PCR) Not Detected (NotDetected) Parainfluenza 3 (PCR) Not Detected (NotDetected) Parainfluenza 4 (PCR) Not Detected (NotDetected) RSV (PCR) Not Detected (NotDetected) Entero/Rhino (PCR) Not Detected (NotDetected) 11/06/24 Range/Units 18:33 WBC 10.27 (4.8-10.8) K/ul RBC 5.41 (4.70-6.10) M/uL Hgb 12.3 L (14.0-18.0) g/dl Hct 41.3 L (42.0-52.0) % MCV 76.3 L (80.0-100.0) fL MCH 22.7 L (25.0-34.0) pg MCHC 29.8 L (32.0-36.0) g/dL RDW Std Deviation 48.4 H (36.4-46.3) fL RDW Coeff of Jose 18.3 H (11.5-14.5) % Plt Count 269 (130-400) K/uL MPV 10.1 (9.4-12.4) fL Immature Gran % (Auto) 0.6 % Neut % (Auto) 72.6 % Lymph % (Auto) 9.8 % [place] % (Auto) 14.5 % Eos % (Auto) 1.9 % Baso % (Auto) 0.6 % Neut # (Auto) 7.45 H (1.40-6.50) K/uL Lymph # (Auto) 1.01 L (1.20-3.40) K/uL [place] # (Auto) 1.49 H (0.11-0.59) K/uL Eos # (Auto) 0.20 (0.00-0.50) K/uL Baso # (Auto) 0.06 (0.00-0.20) K/uL Immature Gran # (Auto) 0.06 (0.01-0.20) K/uL PT 12.8 H (9.0-12.0) Seconds INR 1.2 H (0.9-1.1) APTT 28 (21-31) Seconds PTT Ratio 1.0 Sodium 135 L (136-145) mmol/L Potassium 4.5 (3.5-5.1) mmol/L Chloride 100 (98-107) mmol/L Carbon Dioxide 27 (21-32) mmol/L Anion Gap 8 (3-11) BUN 30 H (6-23) mg/dl Creatinine 1.22 (0.6-1.4) mg/dl Est Cr Clr Drug Dosing Not Reportable eGFR 64.58 BUN/Creatinine Ratio 24.6 H (10-20) Glucose 216 H (70-99(Fasting)) mg/dl POC Glucose (70-99) mg/dl Estimat Average Glucose mg/dl Hemoglobin A1c (4.5-5.6) % Calcium 9.8 (8.6-10.3) mg/dl Magnesium (1.7-2.4) mg/dl Total Bilirubin 0.8 (0.2-1.0) mg/dl AST 29 (13-39) U/L ALT 38 (7-52) U/L Alkaline Phosphatase 70 (34-104) U/L Troponin I High Sens 58.7 H* (0-20) pg/ml B-Natriuretic Peptide (0-100) pg/ml Total Protein 6.8 (6.0-8.3) gm/dl Albumin 3.9 (3.4-5.0) gm/dl Globulin 2.9 (2.5-4.0) gm/dl Albumin/Globulin Ratio 1.3 (0.9-2) TSH < 0.010 L (0.300-4.500) uIu/ml Free T4 3.21 H (0.61-1.60) ng/dl Adenovirus (PCR) (NotDetected) B. pertussis DNA (PCR) (NotDetected) B.parapertussis DNA PCR (NotDetected) C. pneumoniae DNA (PCR) (NotDetected) Coronavirus OC43 (PCR) (NotDetected) Coronavirus HKU1 (PCR) (NotDetected) Coronavirus 229E (PCR) (NotDetected) SARS-CoV-2 (PCR) (NotDetected) Coronavirus NL63 (PCR) (NotDetected) Human Metapneumovir PCR (NotDetected) Influenza Type A (PCR) (NotDetected) Influenza Type B (PCR) (NotDetected) M. pneumoniae (PCR) (NotDetected) Parainfluenza 1 (PCR) (NotDetected) Parainfluenza 2 (PCR) (NotDetected) Parainfluenza 3 (PCR) (NotDetected) Parainfluenza 4 (PCR) (NotDetected) RSV (PCR) (NotDetected) Entero/Rhino (PCR) (NotDetected) Medications Administered Current Inpatient Medications Acetaminophen (Acetaminophen 325 Mg Tab) 650 mg PO Q4H PRN PRN Reason: Pain or Fever Stop: 12/07/24 01:30 Aspirin (Aspirin 81 Mg Ectab) 81 mg PO QAM [facility] Stop: 12/07/24 08:59 Last Admin: 11/07/24 08:20 Dose: 81 mg Benzonatate (Benzonatate 100 Mg Capsule) 100 mg PO TID PRN PRN Reason: Cough Stop: 12/07/24 01:30 Brimonidine Tartrate (Brimonidine Tartrate 0.2% 5ml) 1 drops OPR BID [facility] Stop: 12/07/24 08:59 Last Admin: 11/07/24 08:20 Dose: 1 drops Dextrose (Dextrose 50% 50 Ml Syringe) 25 - 50 ml IV UD PRN; Protocol PRN Reason: Hypoglycemia Protocol Stop: 12/07/24 01:30 Furosemide (Furosemide Inj 20 Mg/2 Ml Vial) 20 mg IV DAILY [facility] Stop: 12/07/24 08:59 Last Admin: 11/07/24 08:19 Dose: 20 mg Glucagon (Glucagon For Inj 1 Mg Vial) 1 mg SQ UD PRN; Protocol PRN Reason: Hypoglycemia Protocol Stop: 12/07/24 01:30 Glucose (Glucose 40% Gel 15 Gm Tube) 15 - 30 gm PO UD PRN; Protocol PRN Reason: Hypoglycemia Protocol Stop: 12/07/24 01:30 Glucose (Glucose 10 Tab/Tube) 4 - 8 tab PO UD PRN; Protocol PRN Reason: Hypoglycemia Protocol Stop: 12/07/24 01:30 Insulin Aspart (Insulin Aspart Per Unit Charge) 0 units SC ACHS [facility] Stop: 12/07/24 07:29 Last Admin: 11/07/24 08:27 Dose: 5 units Latanoprost (Latanoprost 0.005% Op Soln 2.5 Ml Btl) 1 drops OPB HS [facility] Stop: 12/07/24 20:59 Metoprolol Succinate (Metoprolol Succ 50mg Ext Rel Tab) 150 mg PO QAM [facility] Stop: 12/07/24 08:59 Last Admin: 11/07/24 08:20 Dose: 150 mg Metoprolol Succinate (Metoprolol Succ 50mg Ext Rel Tab) 100 mg PO HS [facility] Stop: 12/07/24 20:59 Miscellaneous (Order Awaiting Action: Ciclopirox 8 % Solution) 1 each N/A QS [facility] Stop: 12/07/24 07:59 Last Admin: 11/07/24 08:28 Dose: Not Given Miscellaneous (Carbohydrates For Hypoglycemia ) 15 - 30 gm PO UD PRN PRN Reason: Hypoglycemia Protocol Stop: 12/07/24 01:30 Multivitamins (Multivitamin Tab) 1 tab PO QAM [facility] Stop: 12/07/24 08:59 Last Admin: 11/07/24 08:21 Dose: 1 tab Nitroglycerin (Nitroglycerin Sl 0.4 Mg/Tab Tab) 0.4 mg SL Q5M PRN PRN Reason: Chest Pain Stop: 12/07/24 01:30 Pantoprazole Sodium (Pantoprazole 40 Mg Tab) 40 mg PO QAM [facility] Stop: 12/07/24 08:59 Last Admin: 11/07/24 08:21 Dose: 40 mg Polyethylene Glycol (Polyethylene (Miralax) 17 Gm Pack) 17 gm PO DAILY PRN PRN Reason: Constipation Stop: 12/07/24 01:30 Rivaroxaban (Rivaroxaban 20 Mg Tab) 20 mg PO QDD [facility] Stop: 12/07/24 16:29 Sacubitril/Valsartan (Valsartan/Sacubitril 26/24mg Tab) 1 tab PO BID [facility] Stop: 12/07/24 08:59 Last Admin: 11/07/24 08:20 Dose: 1 tab Spironolactone (Spironolactone 12.5 Mg Tab) 12.5 mg PO DAILY [facility] Stop: 12/07/24 08:59 Last Admin: 11/07/24 08:20 Dose: 12.5 mg Timolol Maleate (Timolol Maleate 0.5% Op Soln 5 Ml Btl) 1 drops OPR BID [facility] Stop: 12/07/24 08:59 Last Admin: 11/07/24 08:20 Dose: 1 drops Vitamin D (Cholecalciferol 25 Mcg (1000 Units) Tab) 50 mcg PO QAM [facility] Stop: 12/07/24 08:59 Last Admin: 11/07/24 08:20 Dose: 50 mcg Zinc Acetate/Diphenhydramine (Diphenhydramine 2%/Zinc 0.1% Cream 28.4gm Tube) 1 appln EXT BID [facility] Stop: 12/06/24 23:29 Last Admin: 11/07/24 08:21 Dose: 1 appln
--- NOTE | 2024-11-07 08:49 | Cardiology Consultation ---
Date of Consultation November 07, 2024 Assessment & Plan (1) Acute systolic CHF (congestive heart failure): (2) JOSHI (dyspnea on exertion): (3) Atrial fibrillation with rapid ventricular response: (4) Cardiac defibrillator in place: (5) HTN (hypertension): Plan Patient admitted with signs/symptoms of acute on chronic HFrEF. Long history of non ischemic cardiomyopathy with LVEF 25%. IV Lasix initiated in ER. He has received several doses of 20 mg IV. Increase dose to 40 mg IV BID with next dose this afternoon. Monitor I+O's Daily weight with standing scale. Monitor electrolytes/renal function Continue spironolactone Recently admitted with hyperthyroidism and afib RVR. Amiodarone discontinued and ongoing rate control strategy recommended. Afib rates remain borderline elevated on admission. Increase metoprolol to 150 mg BID. Continue Xarelto 20 mg daily for anticoagulation LVEF 25% in Sep 2024 - stable. Single lead ICD - appropriate function several weeks ago. Continue Entresto, metoprolol. There has been prior discussion about ICD upgrade to BIV device if he has worsening CHF symptoms. QRS 120 ms. Outpatient EP f/u recommended Case discussed with Dr. Villegas I spent a total of 60 minutes on the date of service in preparation, delivery, and documentation of the care provided to this patient, excluding any time spent in the performance of separately billed services. Justina Brower PA-C Department of Cardiology, [facility] This chart was completed in part utilizing Speech Voice Recognition Software. Grammatical errors, random word insertions, pronoun errors, and incomplete sentences are an occasional consequence of this system due to software limitations, ambient noise, and hardware issues. Any formal questions or concerns about the content, text, or information contained within the body of this dictation should be directly addressed to the provider for clarification. Supervising Physician Co-Signing Physician Notes I have personally performed a history and physical examination on the patient. I have reviewed the advance practitioner's documentation, and I agree with, and take responsibility for the plan of care. 69-year-old male with acute on chronic HFrEF. Nonischemic cardiomyopathy with left ventricular ejection fraction 25-30% confirmed by recent echocardiogram in September. Heart rates borderline elevated on admission. Patient notes sign ificant weight gain, dyspnea, and orthopnea. Amiodarone recently discontinued due to hyperthyroidism. Rate control strategy adopted. Recommendations: * Titrate metoprolol to 150 mg twice daily. * Continue anticoagulation with Xarelto. * IV Lasix 40 mg twice daily ordered. * Continue Entresto as ordered. * Consider titration of spironolactone to 25 mg daily pending clinical course. * Monitor fluid balance, daily weight, GFR, and electrolytes. * Outpatient electrophysiology consultation to consider BiV ICD upgrade. I spent a total of 35 minutes on the date of service in preparation, delivery, and documentation of the care provided to this patient, excluding any time spent in the performance of separately billed services. Michael Villegas DO, [facility] History of Present Illness Reason for Consultation: CHF Requesting Physician: Manuel christian Attending Physician: Dr. Villegas History of Present Illness Patient is a 69 year old male who was admitted to [facility] yesterday with complaints of worsening SOB, weight gain, swelling, orthopnea. History includes: 1. Nonischemic cardiomyopathy with a previous estimated left ventricular ejection fraction of 20-30% 2. Minor coronary artery disease by cardiac catheterization 2012 3. Primary prevention ICD - single lead (future consideration of BIV upgrade had been discussed if patient had worsening CHF symptoms) 4. Paroxysmal now persistent atrial fibrillation, on chronic anticoagulation. Rate control strategy recommended. -Amiodarone likely caused hyperthyroidism. 5. Diabetes mellitus 6. Dyslipidemia with statin intolerances. Will be trying PCSK9 inhib. 7. Non specific conduction delay with QRS 140 ms 8. PVC's Patient was admitted in Sep 2024 with complaints of tachycardia. Found to have recurrent atrial fibrillation with RVR, complicated by abnormal thyroid tests demonstrating hyperthyroidism. Amiodarone was discontinued. Metoprolol increased to 150 mg in AM and 100 mg in PM for rate control strategy. Echo during admission revealed stable findings with moderately dilated LVEF at 25-30%, severely enlarged left atrium and mild to moderate MR with elevated pulm pressures. Pacemaker interrogation at that time revealed recurrent afib starting on 10/14. Since discharge, patient reports worsening SOB with activities and progressive edema, abdominal bloating, orthopnea. He called our office yesterday for an appt and was referred to the ER for his symptoms. On admission, chest xray with pulm vascular congestion, possible lower right opacity? EKG demosntrating afib with mildly elevated ventricular rates. BNP elevated. HS troponin minimally elevated but flat in the 50's. No chest pain reported. He was started on IV furosemide on admission. No significant urine output reported by the patient thus far, after 2 doses of IV furosemide at 20 mg. At time of evaluation, reporting ongoing LE edema, SOB, orthopnea. No chest pain. Allergies Allergy/AdvReac Type Severity Reaction Status Date / Time Gfssygo-OTP-MfR Reductase AdvReac Intermediate Joint Pain Verified 11/06/24 19:53 Inhibitor Home Medications Medication Instructions Recorded Confirmed Type aspirin 81 mg tablet,delayed 81 mg PO QAM 01/05/21 11/06/24 History release coQ10 (ubiquinol) 100 mg capsule 100 mg PO QAM 01/05/21 11/06/24 History multivitamin 1 tab PO QAM 01/05/21 11/06/24 History omega 9-gff-cqe-fish oil 1,200 mg 1 cap PO HS 01/05/21 11/06/24 History (144 mg-216 mg) capsule (Fish Oil) cholecalciferol (vitamin D3) 50 50 mcg PO QAM 05/15/21 11/06/24 History mcg (2,000 unit) tablet (Vitamin D3) latanoprost 0.005 % eye drops 1 drp OPB HS 05/15/21 11/06/24 History metformin 500 mg tablet 500 mg PO BIDM 05/15/21 11/06/24 History omeprazole 20 mg capsule,delayed 20 mg PO QAM 05/15/21 11/06/24 History release brimonidine 0.2 %-timolol 0.5 % 1 drp OPR BID 12/22/22 11/06/24 History eye drops rivaroxaban 20 mg tablet (Xarelto) 20 mg PO QDD 12/22/22 11/06/24 History furosemide 20 mg tablet 20 mg PO QAM 01/15/23 11/06/24 History sacubitril 24 mg-valsartan 26 mg 1 tab PO BID 09/14/23 11/06/24 History tablet (Entresto) spironolactone 25 mg tablet 12.5 mg PO DAILY 09/14/23 11/06/24 History benzonatate 100 mg capsule 100 mg PO TID PRN Cough 10/16/24 11/06/24 History ciclopirox 8 % topical solution 1 applic topical HS 10/16/24 11/06/24 History evolocumab 140 mg/mL subcutaneous 140 mg subcut .EVERY 14 DAYS 10/16/24 11/06/24 History pen injector (Repatha SureManjitick) semaglutide 2 mg/dose (8 mg/3 mL) 2 mg subcut WK 10/16/24 11/06/24 History subcutaneous pen injector (Ozempic) metoprolol succinate 100 mg 100 mg PO BID #60 tabs 10/17/24 11/06/24 Rx tablet,extended release 24 hr metoprolol succinate 50 mg 50 mg PO QAM #30 tabs 10/17/24 11/06/24 Rx tablet,extended release 24 hr Patient History Medical History Osteoarthritis Diabetes mellitus, type 2 On anticoagulant therapy xarelto daily Glaucoma SARS-CoV-2 positive hx of x2--04/2021 and 08/2021--no symptoms now Atrial fibrillation on xarelton/metoprolol--follows with Dr. Aldridge Acute HFrEF (heart failure with reduced ejection fraction) SOB (shortness of breath) Cardiac defibrillator in place Morbid obesity BMI 41.8 Chronic systolic congestive heart failure, NYHA class 2 JOSE DE JESUS (obstructive sleep apnea) cpap Hyperlipidemia HTN (hypertension) CAD (coronary artery disease) NICM (nonischemic cardiomyopathy) Surgical History Status post hardware removal History of open reduction and internal fixation (ORIF) procedure left ankle fx repair--hardware removed History of removal of cyst off knuckle History of prostate biopsy benign History of colonoscopy History of wisdom tooth extraction History of cardiac cath 2012 @ [place], [place]--no stents S/P ICD (internal cardiac defibrillator) procedure placed 04/26/19 Dr. Guevara @ [facility]--medtronic History of total right hip arthroplasty History of total left hip arthroplasty Family History Mother Stroke Father Coronary heart disease Other No family history of adverse response to anesthesia Social History Smoking Status: Former smoker Second Hand Exposure: No; Do You Dip or Chew Tobacco: No; Tobacco Cessation Education Requested by Patient: No Hx Alcohol Use: No Hx Substance Use: No Preferred Language: Mexican Communication Ability: Effective Core Drilling Supervisor Required: No Beliefs That Will Affect Care: None Current Living Situation: Spouse Other Information That Helps Us Care for You: No Feels Safe at Home: Yes Safety Concerns: Feels Safe At This Time Assistive Devices: Cane, CPAP and Walker Review of Systems Review of Systems: All systems reviewed & are unremarkable except as noted in HPI & below Physical Exam Constitutional: WD/WN, vitals as above + obese; no acute distress Neck: trachea midline, no thyromegaly Respiratory: + cough; no labored breathing Auscult ation: + diminished lung sounds Cardiovascular: Rate/Rhythm: + irregularly irregular Heart Sounds: normal S1 and normal S2; no murmur Vessels: no JVD Extremities: + edema (2+ LE edema to thighs) Gastrointestinal (Abdomen): normal bowel sounds, soft, nontender, no hepatosplenomegaly Skin: no rashes, warm and dry Neurologic: PERRL, EOMI, accommodation nl, no face palsy, no dysarthria Results & Data Vital Signs (Past 12 Hours) Vital Signs Temp Pulse Pulse Resp BP BP BP 11/07/24 07:56 37 C 100 H 18 120/89 120/89 11/07/24 07:12 109 H 11/07/24 02:37 36.7 C 106 H 18 99/68 L 11/07/24 01:38 36.4 C L 90 18 90/67 L 11/07/24 01:36 36.4 C L 115 H 18 90/67 L 11/07/24 01:30 11/07/24 01:25 126 H 11/07/24 00:57 107 H 18 111/83 11/07/24 00:00 99 H 18 115/84 11/06/24 22:58 119 H 11/06/24 22:00 109 H 18 92/72 L Pulse Ox O2 Del Method 11/07/24 07:56 97 Room Air 11/07/24 07:12 11/07/24 02:37 98 Room Air 11/07/24 01:38 98 Room Air 11/07/24 01:36 98 Room Air 11/07/24 01:30 Room Air 11/07/24 01:25 11/07/24 00:57 97 Room Air 11/07/24 00:00 98 Room Air 11/06/24 22:58 11/06/24 22:00 96 Room Air Laboratory Results Cardiac Enzymes 11/06/24 11/06/24 11/06/24 Range/Units 18:33 18:34 21:17 AST 29 (13-39) U/L Troponin I High Sens 58.7 H* 56.9 H* (0-20) pg/ml B-Natriuretic Peptide 911 H (0-100) pg/ml Coagulation 11/06/24 11/06/24 Range/Units 18:33 18:34 PT 12.8 H (9.0-12.0) Seconds APTT 28 (21-31) Seconds B-Natriuretic Peptide 911 H (0-100) pg/ml CBC 11/06/24 11/07/24 Range/Units 18:33 05:36 WBC 10.27 7.80 (4.8-10.8) K/ul RBC 5.41 5.08 (4.70-6.10) M/uL Hgb 12.3 L 11.8 L (14.0-18.0) g/dl Hct 41.3 L 38.3 L (42.0-52.0) % Plt Count 269 262 (130-400) K/uL Neut # (Auto) 7.45 H 5.00 (1.40-6.50) K/uL Lymph # (Auto) 1.01 L 1.16 L (1.20-3.40) K/uL [place] # (Auto) 1.49 H 1.31 H (0.11-0.59) K/uL Eos # (Auto) 0.20 0.23 (0.00-0.50) K/uL Baso # (Auto) 0.06 0.07 (0.00-0.20) K/uL Comprehensive Metabolic Panel 11/06/24 11/07/24 Range/Units 18:33 05:36 Sodium 135 L 136 (136-145) mmol/L Potassium 4.5 4.7 (3.5-5.1) mmol/L Chloride 100 102 (98-107) mmol/L Carbon Dioxide 27 28 (21-32) mmol/L BUN 30 H 28 H (6-23) mg/dl Creatinine 1.22 1.14 (0.6-1.4) mg/dl Glucose 216 H 179 H (70-99(Fasting)) mg/dl Calcium 9.8 9.7 (8.6-10.3) mg/dl AST 29 (13-39) U/L ALT 38 (7-52) U/L Alkaline Phosphatase 70 (34-104) U/L Total Protein 6.8 (6.0-8.3) gm/dl Albumin 3.9 (3.4-5.0) gm/dl Intake and Output 11/06/24 11/07/24 11/07/24 22:59 06:59 14:59 Intake Total 400 / 400 Output Total 550 / 550 Balance -150 / -150 Intake: Oral 400 / 400 Output: Urine 550 / 550 Other: Weight 128.4 kg 124.6 kg Weight Measurement Method Built in Bedscale Standing Scale Diagnostic Findings telemetry reviewed: Atrial fibrillation with variable HR's ranging 90-100's EKG reviewed from admission: Atrial fibrillation with mildly elevated ventricular rates at 106 bmp LAD Low voltage QRS 120 ms Echo reviewed from last month, 10/16/24: LV is moderately dilated Mild concentric LVH Severe global hypokinesis LVEF 25-30% LA is severely dilated RA is moderately dilated Aortic valve sclerosis mild without significant Mild to Moderate MR RV systolic pressure is moderately elevated at 50-60 mmHg Moderate TR Laboratory Results WBC 7.80 K/ul (4.8-10.8) 11/07/24 05:36 RBC 5.08 M/uL (4.70-6.10) 11/07/24 05:36 Hgb 11.8 g/dl (14.0-18.0) L 11/07/24 05:36 Hct 38.3 % (42.0-52.0) L 11/07/24 05:36 MCV 75.4 fL (80.0-100.0) L 11/07/24 05:36 MCH 23.2 pg (25.0-34.0) L 11/07/24 05:36 MCHC 30.8 g/dL (32.0-36.0) L 11/07/24 05:36 RDW Std Deviation 48.1 fL (36.4-46.3) H 11/07/24 05:36 RDW Coeff of Jose 18.0 % (11.5-14.5) H 11/07/24 05:36 Plt Count 262 K/uL (130-400) 11/07/24 05:36 MPV 10.1 fL (9.4-12.4) 11/07/24 05:36 Immature Gran % (Auto) 0.4 % 11/07/24 05:36 Neut % (Auto) 64.1 % 11/07/24 05:36 Lymph % (Auto) 14.9 % 11/07/24 05:36 [place] % (Auto) 16.8 % 11/07/24 05:36 Eos % (Auto) 2.9 % 11/07/24 05:36 Baso % (Auto) 0.9 % 11/07/24 05:36 Neut # (Auto) 5.00 K/uL (1.40-6.50) 11/07/24 05:36 Lymph # (Auto) 1.16 K/uL (1.20-3.40) L 11/07/24 05:36 [place] # (Auto) 1.31 K/uL (0.11-0.59) H 11/07/24 05:36 Eos # (Auto) 0.23 K/uL (0.00-0.50) 11/07/24 05:36 Baso # (Auto) 0.07 K/uL (0.00-0.20) 11/07/24 05:36 Immature Gran # (Auto) 0.03 K/uL (0.01-0.20) 11/07/24 05:36 PT 12.8 Seconds (9.0-12.0) H 11/06/24 18:33 INR 1.2 (0.9-1.1) H 11/06/24 18:33 APTT 28 Seconds (21-31) 11/06/24 18:33 PTT Ratio 1.0 11/06/24 18:33 Sodium 136 mmol/L (136-145) 11/07/24 05:36 Potassium 4.7 mmol/L (3.5-5.1) 11/07/24 05:36 Chloride 102 mmol/L (98-107) 11/07/24 05:36 Carbon Dioxide 28 mmol/L (21-32) 11/07/24 05:36 Anion Gap 6 (3-11) 11/07/24 05:36 BUN 28 mg/dl (6-23) H 11/07/24 05:36 Creatinine 1.14 mg/dl (0.6-1.4) 11/07/24 05:36 Est Cr Clr Drug Dosing 78.5 ml/min 11/07/24 05:36 eGFR 70.05 11/07/24 05:36 BUN/Creatinine Ratio 24.6 (10-20) H 11/07/24 05:36 Glucose 179 mg/dl (70-99(Fasting)) H 11/07/24 05:36 POC Glucose 181 mg/dl (70-99) H 11/07/24 07:57 Estimat Average Glucose 206 mg/dl 11/07/24 05:36 Hemoglobin A1c 8.8 % (4.5-5.6) H 11/07/24 05:36 Calcium 9.7 mg/dl (8.6-10.3) 11/07/24 05:36 Magnesium 1.8 mg/dl (1.7-2.4) 11/07/24 05:36 Total Bilirubin 0.8 mg/dl (0.2-1.0) 11/06/24 18:33 AST 29 U/L (13-39) 11/06/24 18:33 ALT 38 U/L (7-52) 11/06/24 18:33 Alkaline Phosphatase 70 U/L (34-104) 11/06/24 18:33 Troponin I High Sens 56.9 pg/ml (0-20) H* 11/06/24 21:17 B-Natriuretic Peptide 911 pg/ml (0-100) H 11/06/24 18:34 Total Protein 6.8 gm/dl (6.0-8.3) 11/06/24 18:33 Albumin 3.9 gm/dl (3.4-5.0) 11/06/24 18:33 Globulin 2.9 gm/dl (2.5-4.0) 11/06/24 18:33 Albumin/Globulin Ratio 1.3 (0.9-2) 11/06/24 18:33 TSH < 0.010 uIu/ml (0.300-4.500) L 11/07/24 05:36 Free T4 3.21 ng/dl (0.61-1.60) H 11/06/24 18:33 Adenovirus (PCR) Not Detected (NotDetected) 11/06/24 Unknown B. pertussis DNA (PCR) Not Detected (NotDetected) 11/06/24 Unknown B.parapertussis DNA PCR Not Detected (NotDetected) 11/06/24 Unknown C. pneumoniae DNA (PCR) Not Detected (NotDetected) 11/06/24 Unknown Coronavirus OC43 (PCR) Not Detected (NotDetected) 11/06/24 Unknown Coronavirus HKU1 (PCR) Not Detected (NotDetected) 11/06/24 Unknown Coronavirus 229E (PCR) Not Detected (NotDetected) 11/06/24 Unknown SARS-CoV-2 (PCR) Not Detected (NotDetected) 11/06/24 Unknown Coronavirus NL63 (PCR) Not Detected (NotDetected) 11/06/24 Unknown Human Metapneumovir PCR Not Detected (NotDetected) 11/06/24 Unknown Influenza Type A (PCR) Not Detected (NotDetected) 11/06/24 Unknown Influenza Type B (PCR) Not Detected (NotDetected) 11/06/24 Unknown M. pneumoniae (PCR) Not Detected (NotDetected) 11/06/24 Unknown Parainfluenza 1 (PCR) Not Detected (NotDetected) 11/06/24 Unknown Parainfluenza 2 (PCR) Not Detected (NotDetected) 11/06/24 Unknown Parainfluenza 3 (PCR) Not Detected (NotDetected) 11/06/24 Unknown Parainfluenza 4 (PCR) Not Detected (NotDetected) 11/06/24 Unknown RSV (PCR) Not Detected (NotDetected) 11/06/24 Unknown Entero/Rhino (PCR) Not Detected (NotDetected) 11/06/24 Unknown Impressions Chest X-Ray 11/06/24 18:26 EXAM: XR chest 1V not portable CLINICAL HISTORY: Chest pain, nonspecific TECHNIQUE: An X-ray image of the chest is obtained in AP projection. COMPARISON: Last study on 10/15/2024. FINDINGS: Pulmonary Parenchyma: Prominent bronchovascular markings both lungs with mild central peribronchial wall thickening with right lower lung zone paracradiac alveolar opacities. No evidence of collapse. No pulmonary nodules are identified. BVeiling of left costo-phrenic angle. No evidence of right pleural effusion or pleural thickening. Heart and Mediastinum: Prominent hilar vascular shadows. Enlarged cardiac size. Prominent aortic arch. Dilated right descending pulmonary artery shadow. No mediastinal widening or masses. No hilar or mediastinal lymphadenopathy. Bony Thorax: Bony thorax appears intact without fractures or deformities. Cardiac pacemaker is seen along left chest wall. Soft Tissues: Soft tissues overlying the chest wall are unremarkable. IMPRESSION: Prominent bronchovascular markings both lungs with mild central peribronchial wall thickening and right lower lung zone paracradiac alveolar opacities, possibility of right basal lung infiltrates.Clinical correlation and follow-up by X-ray is advised.(new findings) Stable cardiomegaly and bilateral hilar vascular congestion. Electronically signed by Jr Agarwal 11-06-2024 8:[address] 11/06/24 23:33 EXAM: CT chest diagnostic wo con CLINICAL HISTORY: infiltrates? cough TECHNIQUE: Contiguous axial images were obtained from the neck base through the upper abdomen without contrast. In addition, sagittal and coronal reconstructions were performed to potentially increase the sensitivity for the detection of disease. CT scan was performed according to ALARA (as low as reasonable achievable). COMPARISON: None. FINDINGS: The lungs are clear, with no focal areas of consolidation. No pulmonary nodules are seen. The central airways are patent. There are no pleural effusions. No pneumothorax is seen. Evaluation of the mediastinum and alejandrina is limited due to the lack of intravenous contrast. No axillary or mediastinal adenopathy is identified. The thyroid is unremarkable. Mild cardiomegaly. Mild dilatation of pulmonary artery measuring up to 3.7 cm , likely representing pulmonary arterial hypertension. The aorta normal size and configuration. There are coronary artery and aortic atherosclerotic calcifications. No pericardial effusion is identified. Imaged portions of the upper abdomen are unremarkable. No aggressive appearing osseous lesions are identified. IMPRESSION: 1. Mild cardiomegaly. 2. Mild dilatation of pulmonary artery, likely representing pulmonary arterial hypertension. Suggested clinical and 2D echo correlation as clinically indicated. Electronically signed by Evin Amador 11-07-2024 02:46 AM Medications Administered Current Inpatient Medications Acetaminophen (Acetaminophen 325 Mg Tab) 650 mg PO Q4H PRN PRN Reason: Pain or Fever Stop: 12/07/24 01:30 Aspirin (Aspirin 81 Mg Ectab) [facility]: 12/07/24 08:59 Last Admin: 11/07/24 08:20 Dose: 81 mg Benzonatate (Benzonatate 100 Mg Capsule) 100 mg PO TID PRN PRN Reason: Cough Stop: 12/07/24 01:30 Brimonidine Tartrate (Brimonidine Tartrate 0.2% 5ml) 1 drops OPR BID MEJIA Stop: 12/07/24 08:59 Last Admin: 11/07/24 08:20 Dose: 1 drops Dextrose (Dextrose 50% 50 Ml Syringe) 25 - 50 ml IV UD PRN; Protocol PRN Reason: Hypoglycemia Protocol Stop: 12/07/24 01:30 Furosemide (Furosemide Inj 20 Mg/2 Ml Vial) 20 mg IV DAILY MEJIA Stop: 12/07/24 08:59 Last Admin: 11/07/24 08:19 Dose: 20 mg Glucagon (Glucagon For Inj 1 Mg Vial) 1 mg SQ UD PRN; Protocol PRN Reason: Hypoglycemia Protocol Stop: 12/07/24 01:30 Glucose (Glucose 40% Gel 15 Gm Tube) 15 - 30 gm PO UD PRN; Protocol PRN Reason: Hypoglycemia Protocol Stop: 12/07/24 01:30 Glucose (Glucose 10 Tab/Tube) 4 - 8 tab PO UD PRN; Protocol PRN Reason: Hypoglycemia Protocol Stop: 12/07/24 01:30 Insulin Aspart (Insulin Aspart Per Unit Charge) 0 units SC ACHS [facility] Stop: 12/07/24 07:29 Last Admin: 11/07/24 08:27 Dose: 5 units Latanoprost (Latanoprost 0.005% Op Soln 2.5 Ml Btl) 1 drops OPB HS [facility] Stop: 12/07/24 20:59 Metoprolol Succinate (Metoprolol Succ 50mg Ext Rel Tab) 150 mg PO QAM MEJIA Stop: 12/07/24 08:59 Last Admin: 11/07/24 08:20 Dose: 150 mg Metoprolol Succinate (Metoprolol Succ 50mg Ext Rel Tab) 100 mg PO HS [facility] Stop: 12/07/24 20:59 Miscellaneous (Order Awaiting Action: Ciclopirox 8 % Solution) 1 each N/A QS [facility] Stop: 12/07/24 07:59 Last Admin: 11/07/24 08:28 Dose: Not Given Miscellaneous (Carbohydrates For Hypoglycemia ) 15 - 30 gm PO UD PRN PRN Reason: Hypoglycemia Protocol Stop: 12/07/24 01:30 Multivitamins (Multivitamin Tab) 1 tab PO QAM MEJIA Stop: 12/07/24 08:59 Last Admin: 11/07/24 08:21 Dose: 1 tab Nitroglycerin (Nitroglycerin Sl 0.4 Mg/Tab Tab) 0.4 mg SL Q5M PRN PRN Reason: Chest Pain Stop: 12/07/24 01:30 Pantoprazole Sodium (Pantoprazole 40 Mg Tab) 40 mg PO QAM MEJIA Stop: 12/07/24 08:59 Last Admin: 11/07/24 08:21 Dose: 40 mg Polyethylene Glycol (Polyethylene (Miralax) 17 Gm Pack) 17 gm PO DAILY PRN PRN Reason: Constipation Stop: 12/07/24 01:30 Rivaroxaban (Rivaroxaban 20 Mg Tab) 20 mg PO QDD MEJIA Stop: 12/07/24 16:29 Sacubitril/Valsartan (Valsartan/Sacubitril 26/24mg Tab) 1 tab PO BID MEJIA Stop: 12/07/24 08:59 Last Admin: 11/07/24 08:20 Dose: 1 tab Spironolactone (Spironolactone 12.5 Mg Tab) 12.5 mg PO DAILY MEJIA Stop: 12/07/24 08:59 Last Admin: 11/07/24 08:20 Dose: 12.5 mg Timolol Maleate (Timolol Maleate 0.5% Op Soln 5 Ml Btl) 1 drops OPR BID MEJIA Stop: 12/07/24 08:59 Last Admin: 11/07/24 08:20 Dose: 1 drops Vitamin D (Cholecalciferol 25 Mcg (1000 Units) Tab) 50 mcg PO QAM MEJIA Stop: 12/07/24 08:59 Last Admin: 11/07/24 08:20 Dose: 50 mcg Zinc Acetate/Diphenhydramine (Diphenhydramine 2%/Zinc 0.1% Cream 28.4gm Tube) 1 appln EXT BID MEJIA Stop: 12/06/24 23:29 Last Admin: 11/07/24 08:21 Dose: 1 appln
[2024-11-07] MEDS ORDERED: NON-FORMULARY MEDICATION (Coq10 (Ubiquinol) 100 mg Capsule) PO SCH (09:00)
[2024-11-07] MEDS ORDERED: NON-FORMULARY MEDICATION (Brimonidine-Timolol 0.2-0.5 % drops) OPR SCH (09:00)
--- NOTE | 2024-11-07 14:43 | Electrocardiogram Report ---
Test Reason : Blood Pressure : */* mmHG Vent. Rate : 106 BPM Atrial Rate : * BPM P-R Int : * ms QRS Dur : 120 ms QT Int : 300 ms P-R-T Axes : * -78 86 degrees QTcB Int : 398 ms Atrial fibrillation with rapid ventricular response with premature ventricular or aberrantly conducte d complexes Left axis deviation Low voltage QRS Possible Anterolateral infarct , age undetermined Abnormal ECG When compared with ECG of 16-Oct-2024 00:17, QRS duration has decreased Confirmed by Matthew Hong ([id number]) on 11/07/2024 2:43:02 PM Referred By: Confirmed By: Matthew Hong
[2024-11-07] MEDS: RIVAROXABAN 20 MG TAB PO SCH (16:55)
[2024-11-07] MEDS ORDERED: METOPROLOL SUCC 50MG EXT REL TAB PO SCH (21:00)
[2024-11-07] MEDS: LATANOPROST 0.005% OP SOLN 2.5 ML BTL OPB SCH (21:20)
[2024-11-08 07:40] LABS: BUN Creatinine Ratio 23.8 (10-20); Calcium 9.5 mg/dl (8.6-10.3); Creatinine Clr Calc Pharmacy 73.1 ml/min; Hematocrit (blood only) 39.2 % (42.0-52.0); Hemoglobin 11.9 g/dl (14.0-18.0); Magnesium 1.7 mg/dl (1.7-2.4); Mean Corpuscular Hemoglobin 22.8 pg (25.0-34.0); Mean Corpuscular Hgb Conc 30.4 g/dL (32.0-36.0); Mean Corpuscular Volume 75.1 fL (80.0-100.0); Mean Platelet Volume 10.2 fL (9.4-12.4); Phosphorus 4.8 mg/dl (2.5-4.9); Platelet Count 266 K/uL (130-400); Potassium 4.3 mmol/L (3.5-5.1); RDW Coefficient of Variation 18.4 % (11.5-14.5); RDW Standard Deviation 47.4 fL (36.4-46.3); Red Blood Count 5.22 M/uL (4.70-6.10); White Blood Count 8.36 K/ul (4.8-10.8)
--- NOTE | 2024-11-08 14:03 | Hospitalist Progress Note ---
Date of Service November 08, 2024 Assessment & Plan (1) Acute systolic CHF (congestive heart failure): Plan: 69 yo M with type 2 diabetes, hyperlipidemia, obstructive sleep apnea, nonischemic cardiomyopathy status post ICD, moderate mitral regurgitation, aortic root enlargement, paroxysmal atrial fibrillation, history of CAD, hypertension, primary open-angle glaucoma both eyes mild stage, presents with worsening lower extremity edema. Patient states in the nighttime when sleeping is having cough. While resting is okay but with the exertion is having dyspnea. Denies chest pain. No fevers. No headache. No runny nose or sore throat. No headaches. No abdominal pain. No nausea. Normal bowel and bladder movements. In the ER he received a dose of Lasix and a dose of metoprolol. He states after Lasix he micturated and thinks swelling in the lower extremities coming down. Patient also developed macular rash on upper extremities and back which is itchy since last 2 weeks. No recent new medications. Acute systolic CHF Nonischemic cardiomyopathy Echo done 10/12/2024 shows EF of 25 to 30%. Global hypokinesis of left ventricle. Right ventricle systolic pressure is moderately high at 50 to 60 mmHg Received IV Lasix 20 mg in the ER Cont. IV Lasix 40 mg bid as per cardiology. Continue home spironolactone. Continue home metoprolol succinate and Entresto with holding parameters. Telemetry Daily weights and I's and O's CT chest - no pna Cardiology consulted - acute on chronic HFrEF. Nonischemic cardiomyopathy with left ventricular ejection fraction 25-30% confirmed by recent echocardiogram in September. Heart rates borderline elevated on admission. Patient notes significant weight gain, dyspnea, and orthopnea. Amiodarone recently discontinued due to hyperthyroidism. Rate control strategy adopted. Recommendations: * Add digoxin 250 mcg x 1 now then 125 mcg daily. * Continue metoprolol to 150 mg twice daily and entresto. * Continue anticoagulation with Xarelto. * IV Lasix 40 mg twice daily. * Transition to oral diuretic therapy in the next 24-48 hours. * Monitor fluid balance, daily weight, GFR, and electrolytes. * Outpatient electrophysiology consultation to consider BiV ICD upgrade. Atrial fibrillation On metoprolol succinate and Xarelto Amiodarone was stopped last admission because of abnormal thyroid function adding digoxin, as above Obstructive sleep apnea On CPAP nightly Hyperthyroidism Thought to be from amiodarone which is stopped now Follow repeat labs Can discuss with Endo Type 2 diabetes Hold metformin Sliding scale Will monitor Hypertension Metoprolol succinate, Entresto with holding parameters Also on diuretics GERD On omeprazole Nonocclusive CAD On Repatha, beta-marcella and aspirin Rash Macular rash on extremities and back Benadryl cream for now Follow-up with PCP and dermatology DVT prophylaxis On Xarelto Disposition Telemetry Full code. Admission and Anticipated Discharge Date Admission Date: November 06, 2024 Subjective Pt seen in follow up of CHF, edema Currently sitting up in bed in NAD, pt's present at the bedside Pt reports LE edema is improved, abd. girth edema also improved. reports good diuresis. Currently denies chest pain or shortness of breath + cough w/ deep inspiration Review of Systems Review of Systems: All systems reviewed & are unremarkable except as noted in Subjective Physical Exam Physical Exam: General- morbidly obese elderly M in NAD Head- atraumatic Eyes- PERRL. Neck- supple, no JVD. Lungs- clear to auscultation no wheezing or crackles Heart- regular rhythm; no murmur Abdomen- normal bowel sounds, soft, nontender, no distension Extremities- b/l lower ext edema present. no erythema seen Neuro- alert, oriented PERRL, no facial palsy; no dysarthria; moves extremities. Skin- warm, dry Results & Data Results & Data Vital Signs (Past 12 Hours) Vital Signs Temp Pulse Pulse Resp BP Pulse Ox O2 Del Method 11/08/24 12:03 96 H 18 114/58 L 96 Room Air 11/08/24 07:59 96 H 11/08/24 07:30 36.6 C 98 H 16 122/63 98 Room Air 11/08/24 02:51 36.5 C 98 H 18 113/70 97 Room Air Laboratory Results 11/08/24 11/08/24 11/08/24 Range/Units 11:25 07:36 06:14 WBC 8.36 (4.8-10.8) K/ul RBC 5.22 (4.70-6.10) M/uL Hgb 11.9 L (14.0-18.0) g/dl Hct 39.2 L (42.0-52.0) % MCV 75.1 L (80.0-100.0) fL MCH 22.8 L (25.0-34.0) pg MCHC 30.4 L (32.0-36.0) g/dL RDW Std Deviation 47.4 H (36.4-46.3) fL RDW Coeff of Jose 18.4 H (11.5-14.5) % Plt Count 266 (130-400) K/uL MPV 10.2 (9.4-12.4) fL Sodium 137 (136-145) mmol/L Potassium 4.3 (3.5-5.1) mmol/L Chloride 99 (98-107) mmol/L Carbon Dioxide 29 (21-32) mmol/L Anion Gap 9 (3-11) BUN 29 H (6-23) mg/dl Creatinine 1.22 (0.6-1.4) mg/dl Est Cr Clr Drug Dosing 73.1 ml/min eGFR 64.58 BUN/Creatinine Ratio 23.8 H (10-20) Glucose 152 H (70-99(Fasting)) mg/dl POC Glucose 158 H 165 H (70-99) mg/dl Calcium 9.5 (8.6-10.3) mg/dl Phosphorus 4.8 (2.5-4.9) mg/dl Magnesium 1.7 (1.7-2.4) mg/dl 11/07/24 11/07/24 Range/Units 20:22 16:44 WBC (4.8-10.8) K/ul RBC (4.70-6.10) M/uL Hgb (14.0-18.0) g/dl Hct (42.0-52.0) % MCV (80.0-100.0) fL MCH (25.0-34.0) pg MCHC (32.0-36.0) g/dL RDW Std Deviation (36.4-46.3) fL RDW Coeff of Jose (11.5-14.5) % Plt Count (130-400) K/uL MPV (9.4-12.4) fL Sodium (136-145) mmol/L Potassium (3.5-5.1) mmol/L Chloride (98-107) mmol/L Carbon Dioxide (21-32) mmol/L Anion Gap (3-11) BUN (6-23) mg/dl Creatinine (0.6-1.4) mg/dl Est Cr Clr Drug Dosing ml/min eGFR BUN/Creatinine Ratio (10-20) Glucose (70-99(Fasting)) mg/dl POC Glucose 174 H 178 H (70-99) mg/dl Calcium (8.6-10.3) mg/dl Phosphorus (2.5-4.9) mg/dl Magnesium (1.7-2.4) mg/dl Medications Administered Current Inpatient Medications Acetaminophen (Acetaminophen 325 Mg Tab) 650 mg PO Q4H PRN PRN Reason: Pain or Fever Stop: 12/07/24 01:30 Aspirin (Aspirin 81 Mg Ectab) 81 mg PO QAM [facility] Stop: 12/07/24 08:59 Last Admin: 11/08/24 08:23 Dose: 81 mg Benzonatate (Benzonatate 100 Mg Capsule) 100 mg PO TID PRN PRN Reason: Cough Stop: 12/07/24 01:30 Brimonidine Tartrate (Brimonidine Tartrate 0.2% 5ml) 1 drops OPR BID [facility] Stop: 12/07/24 08:59 Last Admin: 11/08/24 08:24 Dose: 1 drops Dextrose (Dextrose 50% 50 Ml Syringe) 25 - 50 ml IV UD PRN; Protocol PRN Reason: Hypoglycemia Protocol Stop: 12/07/24 01:30 Furosemide (Furosemide Inj 20 Mg/2 Ml Vial) 40 mg IV [id number] [facility] Stop: 12/07/24 13:59 Last Admin: 11/08/24 13:49 Dose: 40 mg Glucagon (Glucagon For Inj 1 Mg Vial) 1 mg SQ UD PRN; Protocol PRN Reason: Hypoglycemia Protocol Stop: 12/07/24 01:30 Glucose (Glucose 40% Gel 15 Gm Tube) 15 - 30 gm PO UD PRN; Protocol PRN Reason: Hypoglycemia Protocol Stop: 12/07/24 01:30 Glucose (Glucose 10 Tab/Tube) 4 - 8 tab PO UD PRN; Protocol PRN Reason: Hypoglycemia Protocol Stop: 12/07/24 01:30 Insulin Aspart (Insulin Aspart Per Unit Charge) 0 units SC ACHS [facility] Stop: 12/07/24 07:29 Last Admin: 11/08/24 12:22 Dose: 2 units Latanoprost (Latanoprost 0.005% Op Soln 2.5 Ml Btl) 1 drops OPB HS [facility] Stop: 12/07/24 20:59 Last Admin: 11/07/24 21:20 Dose: 1 drops Metoprolol Succinate (Metoprolol Succ 50mg Ext Rel Tab) 150 mg PO BID [facility] Stop: 12/07/24 20:59 Last Admin: 11/08/24 08:24 Dose: 150 mg Miscellaneous (Order Awaiting Action: Ciclopirox 8 % Solution) 1 each N/A QS [facility] Stop: 12/07/24 07:59 Last Admin: 11/08/24 08:26 Dose: Not Given Miscellaneous (Carbohydrates For Hypoglycemia ) 15 - 30 gm PO UD PRN PRN Reason: Hypoglycemia Protocol Stop: 12/07/24 01:30 Multivitamins (Multivitamin Tab) 1 tab PO QAM [facility] Stop: 12/07/24 08:59 Last Admin: 11/08/24 08:25 Dose: 1 tab Nitroglycerin (Nitroglycerin Sl 0.4 Mg/Tab Tab) 0.4 mg SL Q5M PRN PRN Reason: Chest Pain Stop: 12/07/24 01:30 Pantoprazole Sodium (Pantoprazole 40 Mg Tab) 40 mg PO QAM [facility] Stop: 12/07/24 08:59 Last Admin: 11/08/24 08:25 Dose: 40 mg Polyethylene Glycol (Polyethylene (Miralax) 17 Gm Pack) 17 gm PO DAILY PRN PRN Reason: Constipation Stop: 12/07/24 01:30 Rivaroxaban (Rivaroxaban 20 Mg Tab) 20 mg PO QDD [facility] Stop: 12/07/24 16:29 Last Admin: 11/07/24 16:55 Dose: 20 mg Sacubitril/Valsartan (Valsartan/Sacubitril 26/24mg Tab) 1 tab PO BID [facility] Stop: 12/07/24 08:59 Last Admin: 11/08/24 08:25 Dose: 1 tab Spironolactone (Spironolactone 12.5 Mg Tab) 12.5 mg PO DAILY [facility] Stop: 12/07/24 08:59 Last Admin: 11/08/24 08:25 Dose: 12.5 mg Timolol Maleate (Timolol Maleate 0.5% Op Soln 5 Ml Btl) 1 drops OPR BID [facility] Stop: 12/07/24 08:59 Last Admin: 11/08/24 08:25 Dose: 1 drops Vitamin D (Cholecalciferol 25 Mcg (1000 Units) Tab) 50 mcg PO QAM [facility] Stop: 12/07/24 08:59 Last Admin: 11/08/24 08:24 Dose: 50 mcg Zinc Acetate/Diphenhydramine (Diphenhydramine 2%/Zinc 0.1% Cream 28.4gm Tube) 1 appln EXT BID [facility] Stop: 12/06/24 23:29 Last Admin: 11/08/24 08:24 Dose: 1 appln
--- NOTE | 2024-11-08 14:07 | Cardiology Progress Note ---
Date of Service November 08, 2024 Assessment & Plan (1) Acute systolic CHF (congestive heart failure): (2) JOSHI (dyspnea on exertion): (3) Atrial fibrillation with rapid ventricular response: (4) Cardiac defibrillator in place: (5) HTN (hypertension): Plan 11/07/24 Patient admitted with signs/symptoms of acute on chronic HFrEF. Long history of non ischemic cardiomyopathy with LVEF 25%. IV Lasix initiated in ER. He has received several doses of 20 mg IV. Increase dose to 40 mg IV BID with next dose this afternoon. Monitor I+O's Daily weight with standing scale. Monitor electrolytes/renal function Continue spironolactone Recently admitted with hyperthyroidism and afib RVR. Amiodarone discontinued and ongoing rate control strategy recommended. Afib rates remain borderline elevated on admission. Increase metoprolol to 150 mg BID. Continue Xarelto 20 mg daily for anticoagulation LVEF 25% in Sep 2024 - stable. Single lead ICD - appropriate function several weeks ago. Continue Entresto, metoprolol. There has been prior discussion about ICD upgrade to BIV device if he has worsening CHF symptoms. QRS 120 ms. Outpatient EP f/u recommended 11/08/24: Patient with interval improvement in his volume and respiratory status overnight. 2.2 L output in the last 24 hours. Weight trending downward. Received additional IV lasix this morning. If ambulating in hallways without dyspnea/hypoxia, likely discharge in the next 24 hours. Would transition to oral furosemide 40 mg on discharge (prior home dose was 20 mg) Afib rates improving Continue higher dose metoprolol 150 mg BID Supplement magnesium. Continue Xarelto for antiicoagulation therapy. Patient with chronic HFrEF - LVEF 25% Single lead ICD in place. Now has widened QRS and worsening CHF symptoms. Likely would benefit from BIV upgrade. EP outpatient follow up recommended. Case discussed with Dr. Villegas I spent a total of 35 minutes on the date of service in preparation, delivery, and documentation of the care provided to this patient, excluding any time spent in the performance of separately billed3 services. Justina Brower PA-C Department of Cardiology, [facility] This chart was completed in part utilizing Speech Voice Recognition Software. Grammatical errors, random word insertions, pronoun errors, and incomplete sentences are an occasional consequence of this system due to software limitations, ambient noise, and hardware issues. Any formal questions or concerns about the content, text, or information contained within the body of this dictation should be directly addressed to the provider for clarification. Admission and Anticipated Discharge Date Admission Date: November 06, 2024 Supervising Physician Co-Signing Physician Notes I have personally performed a history and physical examination on the patient. I have reviewed the advance practitioner's documentation, and I agree with, and take responsibility for the plan of care. 69-year-old male with acute on chronic HFrEF. Nonischemic cardiomyopathy with left ventricular ejection fraction 25-30% confirmed by recent echocardiogram in September. Amiodarone recently discontinued due to hyperthyroidism. Rate control strategy adopted. Heart rate improved with titration of beta-marcella therapy 11/07/2024. Denies palpitations or lightheadedness. Dyspnea improved. Fluid balance -1950mL. Stable renal function. Recommendations: * Add digoxin 250 mcg x 1 now then 125 mcg daily. * Continue metoprolol to 150 mg twice daily and entresto. * Continue anticoagulation with Xarelto. * IV Lasix 40 mg twice daily. * Transition to oral diuretic therapy in the next 24-48 hours. * Monitor fluid balance, daily weight, GFR, and electrolytes. * Outpatient electrophysiology consultation to consider BiV ICD upgrade. I spent a total of 37 minutes on the date of service in preparation, delivery, and documentation of the care provided to this patient, excluding any time spent in the performance of separately billed services. Michael Villegas DO, [facility] Subjective Patient resting in bed comfortably. Also ambulating in hallways this morning with improvement in his SOB/dyspnea since admission. Edema remains present but improved. He reports some degree of chronic edema. Improved abdominal bloating. no chest pain. No dizziness. Patient is hoping to go home today. Review of Systems Review of Systems: All systems reviewed & are unremarkable except as noted in HPI & below Physical Exam Constitutional: WD/WN, vitals as above + obese; no acute distress Neck: trachea midline, no thyromegaly Respiratory: + cough; no labored breathing Auscult ation: + diminished lung sounds Cardiovascular: Rate/Rhythm: + irregularly irregular Heart Sounds: normal S1 and normal S2; no murmur Vessels: no JVD Extremities: + edema (Trace to 1+ pretibial edema) Gastrointestinal (Abdomen): normal bowel sounds, soft, nontender, no hepatosplenomegaly Skin: no rashes, warm and dry Neurologic: PERRL, EOMI, accommodation nl, no face palsy, no dysarthria Results & Data Vital Signs (Past 12 Hours) Vital Signs Temp Pulse Pulse Resp BP Pulse Ox O2 Del Method 11/08/24 12:03 96 H 18 114/58 L 96 Room Air 11/08/24 07:59 96 H 11/08/24 07:30 36.6 C 98 H 16 122/63 98 Room Air 11/08/24 02:51 36.5 C 98 H 18 113/70 97 Room Air Laboratory Results CBC 11/08/24 Range/Units 06:14 WBC 8.36 (4.8-10.8) K/ul RBC 5.22 (4.70-6.10) M/uL Hgb 11.9 L (14.0-18.0) g/dl Hct 39.2 L (42.0-52.0) % Plt Count 266 (130-400) K/uL Comprehensive Metabolic Panel 11/08/24 Range/Units 06:14 Sodium 137 (136-145) mmol/L Potassium 4.3 (3.5-5.1) mmol/L Chloride 99 (98-107) mmol/L Carbon Dioxide 29 (21-32) mmol/L BUN 29 H (6-23) mg/dl Creatinine 1.22 (0.6-1.4) mg/dl Glucose 152 H (70-99(Fasting)) mg/dl Calcium 9.5 (8.6-10.3) mg/dl Intake and Output 11/07/24 11/08/24 11/08/24 22:59 06:59 14:59 Intake Total 100 / 580 Output Total 1100 / 0 950 / 2050 Balance -1100 / -1470 -850 / -1470 Intake: Oral 100 / 580 Output: Urine 1100 / 0 950 / 2050 Other: Weight 123.8 kg Weight Measurement Method Standing Scale Diagnostic Findings Telemetry reviewed: Afib with improving rates ranging 80-100 bmp. Medications Administered Current Inpatient Medications Acetaminophen (Acetaminophen 325 Mg Tab) 650 mg PO Q4H PRN PRN Reason: Pain or Fever Stop: 12/07/24 01:30 Aspirin (Aspirin 81 Mg Ectab) [facility] [place] Stop: 12/07/24 08:59 Last Admin: 11/08/24 08:23 Dose: 81 mg Benzonatate (Benzonatate 100 Mg Capsule) 100 mg PO TID PRN PRN Reason: Cough Stop: 12/07/24 01:30 Brimonidine Tartrate (Brimonidine Tartrate 0.2% 5ml) 1 drops OPR BID [facility] Stop: 12/07/24 08:59 Last Admin: 11/08/24 08:24 Dose: 1 drops Dextrose (Dextrose 50% 50 Ml Syringe) 25 - 50 ml IV UD PRN; Protocol PRN Reason: Hypoglycemia Protocol Stop: 12/07/24 01:30 Furosemide (Furosemide Inj 20 Mg/2 Ml Vial) 40 mg IV [id number] [facility] Stop: 12/07/24 13:59 Last Admin: 11/08/24 13:49 Dose: 40 mg Glucagon (Glucagon For Inj 1 Mg Vial) 1 mg SQ UD PRN; Protocol PRN Reason: Hypoglycemia Protocol Stop: 12/07/24 01:30 Glucose (Glucose 40% Gel 15 Gm Tube) 15 - 30 gm PO UD PRN; Protocol PRN Reason: Hypoglycemia Protocol Stop: 12/07/24 01:30 Glucose (Glucose 10 Tab/Tube) 4 - 8 tab PO UD PRN; Protocol PRN Reason: Hypoglycemia Protocol Stop: 12/07/24 01:30 Insulin Aspart (Insulin Aspart Per Unit Charge) 0 units SC ACHS [facility] Stop: 12/07/24 07:29 Last Admin: 11/08/24 12:22 Dose: 2 units Latanoprost (Latanoprost 0.005% Op Soln 2.5 Ml Btl) 1 drops OPB HS [facility] Stop: 12/07/24 20:59 Last Admin: 11/07/24 21:20 Dose: 1 drops Metoprolol Succinate (Metoprolol Succ 50mg Ext Rel Tab) 150 mg PO BID [facility] Stop: 12/07/24 20:59 Last Admin: 11/08/24 08:24 Dose: 150 mg Miscellaneous (Order Awaiting Action: Ciclopirox 8 % Solution) 1 each N/A QS [facility] Stop: 12/07/24 07:59 Last Admin: 11/08/24 08:26 Dose: Not Given Miscellaneous (Carbohydrates For Hypoglycemia ) 15 - 30 gm PO UD PRN PRN Reason: Hypoglycemia Protocol Stop: 12/07/24 01:30 Multivitamins (Multivitamin Tab) 1 tab PO QAM [facility] Stop: 12/07/24 08:59 Last Admin: 11/08/24 08:25 Dose: 1 tab Nitroglycerin (Nitroglycerin Sl 0.4 Mg/Tab Tab) 0.4 mg SL Q5M PRN PRN Reason: Chest Pain Stop: 12/07/24 01:30 Pantoprazole Sodium (Pantoprazole 40 Mg Tab) 40 mg PO QAM [facility] Stop: 12/07/24 08:59 Last Admin: 11/08/24 08:25 Dose: 40 mg Polyethylene Glycol (Polyethylene (Miralax) 17 Gm Pack) 17 gm PO DAILY PRN PRN Reason: Constipation Stop: 12/07/24 01:30 Rivaroxaban (Rivaroxaban 20 Mg Tab) 20 mg PO QDD [facility] Stop: 12/07/24 16:29 Last Admin: 11/07/24 16:55 Dose: 20 mg Sacubitril/Valsartan (Valsartan/Sacubitril 26/24mg Tab) 1 tab PO BID [facility] Stop: 12/07/24 08:59 Last Admin: 11/08/24 08:25 Dose: 1 tab Spironolactone (Spironolactone 12.5 Mg Tab) 12.5 mg PO DAILY [facility] Stop: 12/07/24 08:59 Last Admin: 11/08/24 08:25 Dose: 12.5 mg Timolol Maleate (Timolol Maleate 0.5% Op Soln 5 Ml Btl) 1 drops OPR BID [facility] Stop: 12/07/24 08:59 Last Admin: 11/08/24 08:25 Dose: 1 drops Vitamin D (Cholecalciferol 25 Mcg (1000 Units) Tab) 50 mcg PO QAM [facility] Stop: 12/07/24 08:59 Last Admin: 11/08/24 08:24 Dose: 50 mcg Zinc Acetate/Diphenhydramine (Diphenhydramine 2%/Zinc 0.1% Cream 28.4gm Tube) 1 appln EXT BID [facility] Stop: 12/06/24 23:29 Last Admin: 11/08/24 08:24 Dose: 1 appln
[2024-11-08] MEDS: MAGNESIUM SULFATE / D5W 1 GM/100 ML BAG IV SCH (15:02)
[2024-11-08] MEDS: DIGOXIN 0.125 MG TAB PO ONE (15:38)
[2024-11-09 06:49] LABS: Hematocrit (blood only) 35.8 % (42.0-52.0); Mean Corpuscular Hemoglobin 22.9 pg (25.0-34.0); Mean Corpuscular Hgb Conc 30.7 g/dL (32.0-36.0); Mean Corpuscular Volume 74.4 fL (80.0-100.0); Mean Platelet Volume 10.2 fL (9.4-12.4); Platelet Count 255 K/uL (130-400); RDW Coefficient of Variation 17.7 % (11.5-14.5); RDW Standard Deviation 46.5 fL (36.4-46.3); Red Blood Count 4.81 M/uL (4.70-6.10); White Blood Count 8.57 K/ul (4.8-10.8)
[2024-11-09 07:28] LABS: Calcium 8.8 mg/dl (8.6-10.3); Magnesium 1.8 mg/dl (1.7-2.4); Potassium 3.7 mmol/L (3.5-5.1)
[2024-11-09 07:34] LABS: BUN Creatinine Ratio 24.4 (10-20); Creatinine Clr Calc Pharmacy 72.2 ml/min
[2024-11-09] MEDS: POTASSIUM CHLORIDE CRTAB 20 MEQ TABCR PO ONE (10:13)
[2024-11-09] MEDS: MAGNESIUM SULFATE / D5W 1 GM/100 ML BAG IV SCH (10:13)
--- NOTE | 2024-11-09 14:44 | Hospitalist Progress Note ---
Date of Service November 09, 2024 Assessment & Plan (1) Acute systolic CHF (congestive heart failure): Plan: 69 yo M with type 2 diabetes, hyperlipidemia, obstructive sleep apnea, nonischemic cardiomyopathy status post ICD, moderate mitral regurgitation, aortic root enlargement, paroxysmal atrial fibrillation, history of CAD, hypertension, primary open-angle glaucoma both eyes mild stage, presents with worsening lower extremity edema. Patient states in the nighttime when sleeping is having cough. While resting is okay but with the exertion is having dyspnea. Denies chest pain. No fevers. No headache. No runny nose or sore throat. No headaches. No abdominal pain. No nausea. Normal bowel and bladder movements. In the ER he received a dose of Lasix and a dose of metoprolol. He states after Lasix he micturated and thinks swelling in the lower extremities coming down. Patient also developed macular rash on upper extremities and back which is itchy since last 2 weeks. No recent new medications. Acute systolic CHF Nonischemic cardiomyopathy Echo done 10/12/2024 shows EF of 25 to 30%. Global hypokinesis of left ventricle. Right ventricle systolic pressure is moderately high at 50 to 60 mmHg Received IV Lasix 20 mg in the ER Cont. IV Lasix 40 mg bid as per cardiology. Continue home spironolactone. Continue home metoprolol succinate and Entresto with holding parameters. Telemetry Daily weights and I's and O's CT chest - no pna Cardiology consulted - acute on chronic HFrEF. Nonischemic cardiomyopathy with left ventricular ejection fraction 25-30% confirmed by recent echocardiogram in September. Heart rates borderline elevated on admission. Patient notes significant weight gain, dyspnea, and orthopnea. Amiodarone recently discontinued due to hyperthyroidism. Rate control strategy adopted. Recommendations: * digoxin 125 mcg daily. * metoprolol to 150 mg twice daily and entresto. * Xarelto. * IV Lasix 40 mg twice daily. * Transition to oral diuretic therapy in the next 24-48 hours. * Monitor fluid balance, daily weight, GFR, and electrolytes. * Outpatient electrophysiology consultation to consider BiV ICD upgrade. Atrial fibrillation On metoprolol succinate and Xarelto Amiodarone was stopped last admission because of abnormal thyroid function added digoxin, as above Obstructive sleep apnea On CPAP nightly Hyperthyroidism Thought to be from amiodarone which is stopped now Follow repeat labs Can discuss with Endo Type 2 diabetes Hold metformin Sliding scale Will monitor Hypertension Metoprolol succinate, Entresto with holding parameters Also on diuretics GERD On omeprazole Nonocclusive CAD On Repatha, beta-marcella and aspirin Rash Macular rash on extremities and back Benadryl cream for now Follow-up with PCP and dermatology DVT prophylaxis On Xarelto Disposition Telemetry Full code. Admission and Anticipated Discharge Date Admission Date: November 06, 2024 Subjective Pt seen in follow up of CHF, edema Currently sitting up in bed in NAD Pt reports LE edema is improved, abd. girth edema also improved. reports good di uresis. Currently denies chest pain or shortness of breath Overall pt feels well and much improved Also discussed pt's anemia - pt reports his PCP just did work up on his anemia and he will follow up Review of Systems Review of Systems: All systems reviewed & are unremarkable except as noted in Subjective Physical Exam Physical Exam: General- morbidly obese elderly M in NAD Head- atraumatic Eyes- PERRL. Neck- supple, no JVD. Lungs- clear to auscultation no wheezing or crackles Heart- regular rhythm; no murmur Abdomen- normal bowel sounds, soft, nontender, no distension Extremities- b/l lower ext edema present. no erythema seen Neuro- alert, oriented PERRL, no facial palsy; no dysarthria; moves extremities. Skin- warm, dry Results & Data Results & Data Vital Signs (Past 12 Hours) Vital Signs Temp Pulse Pulse Resp BP Pulse Ox O2 Del Method 11/09/24 11:00 36.7 C 85 18 109/76 95 Room Air 11/09/24 08:04 104 H 11/09/24 08:00 Room Air 11/09/24 08:00 36.5 C 92 H 20 115/69 97 Room Air 11/09/24 02:43 36.7 C 90 18 115/68 96 Room Air Laboratory Results 11/09/24 11/09/24 11/09/24 Range/Units 11:17 07:36 05:33 WBC 8.57 (4.8-10.8) K/ul RBC 4.81 (4.70-6.10) M/uL Hgb 11.0 L (14.0-18.0) g/dl Hct 35.8 L (42.0-52.0) % MCV 74.4 L (80.0-100.0) fL MCH 22.9 L (25.0-34.0) pg MCHC 30.7 L (32.0-36.0) g/dL RDW Std Deviation 46.5 H (36.4-46.3) fL RDW Coeff of Jose 17.7 H (11.5-14.5) % Plt Count 255 (130-400) K/uL MPV 10.2 (9.4-12.4) fL Sodium 135 L (136-145) mmol/L Potassium 3.7 (3.5-5.1) mmol/L Chloride 99 (98-107) mmol/L Carbon Dioxide 27 (21-32) mmol/L Anion Gap 9 (3-11) BUN 30 H (6-23) mg/dl Creatinine 1.23 (0.6-1.4) mg/dl Est Cr Clr Drug Dosing 72.2 ml/min eGFR 63.95 BUN/Creatinine Ratio 24.4 H (10-20) Glucose 135 H (70-99(Fasting)) mg/dl POC Glucose 156 H 162 H (70-99) mg/dl Calcium 8.8 (8.6-10.3) mg/dl Phosphorus 4.0 (2.5-4.9) mg/dl Magnesium 1.8 (1.7-2.4) mg/dl 11/08/24 11/08/24 Range/Units 20:16 16:20 WBC (4.8-10.8) K/ul RBC (4.70-6.10) M/uL Hgb (14.0-18.0) g/dl Hct (42.0-52.0) % MCV (80.0-100.0) fL MCH (25.0-34.0) pg MCHC (32.0-36.0) g/dL RDW Std Deviation (36.4-46.3) fL RDW Coeff of Jose (11.5-14.5) % Plt Count (130-400) K/uL MPV (9.4-12.4) fL Sodium (136-145) mmol/L Potassium (3.5-5.1) mmol/L Chloride (98-107) mmol/L Carbon Dioxide (21-32) mmol/L Anion Gap (3-11) BUN (6-23) mg/dl Creatinine (0.6-1.4) mg/dl Est Cr Clr Drug Dosing ml/min eGFR BUN/Creatinine Ratio (10-20) Glucose (70-99(Fasting)) mg/dl POC Glucose 147 H 216 H (70-99) mg/dl Calcium (8.6-10.3) mg/dl Phosphorus (2.5-4.9) mg/dl Magnesium (1.7-2.4) mg/dl Medications Administered Current Inpatient Medications Acetaminophen (Acetaminophen 325 Mg Tab) 650 mg PO Q4H PRN PRN Reason: Pain or Fever Stop: 12/07/24 01:30 Aspirin (Aspirin 81 Mg Ectab) 81 mg PO QAM [facility] Stop: 12/07/24 08:59 Last Admin: 11/09/24 09:07 Dose: 81 mg Benzonatate (Benzonatate 100 Mg Capsule) 100 mg PO TID PRN PRN Reason: Cough Stop: 12/07/24 01:30 Brimonidine Tartrate (Brimonidine Tartrate 0.2% 5ml) 1 drops OPR BID [facility] Stop: 12/07/24 08:59 Last Admin: 11/09/24 09:07 Dose: 1 drops Dextrose (Dextrose 50% 50 Ml Syringe) 25 - 50 ml IV UD PRN; Protocol PRN Reason: Hypoglycemia Protocol Stop: 12/07/24 01:30 Digoxin (Digoxin 0.125 Mg Tab) 0.125 mg PO DAILY@1600 [facility] Stop: 12/09/24 15:59 Furosemide (Furosemide Inj 20 Mg/2 Ml Vial) 40 mg IV [id number] [facility] Stop: 12/07/24 13:59 Last Admin: 11/09/24 14:38 Dose: Not Given Glucagon (Glucagon For Inj 1 Mg Vial) 1 mg SQ UD PRN; Protocol PRN Reason: Hypoglycemia Protocol Stop: 12/07/24 01:30 Glucose (Glucose 40% Gel 15 Gm Tube) 15 - 30 gm PO UD PRN; Protocol PRN Reason: Hypoglycemia Protocol Stop: 12/07/24 01:30 Glucose (Glucose 10 Tab/Tube) 4 - 8 tab PO UD PRN; Protocol PRN Reason: Hypoglycemia Protocol Stop: 12/07/24 01:30 Insulin Aspart (Insulin Aspart Per Unit Charge) 0 units SC ACHS [facility] Stop: 12/07/24 07:29 Last Admin: 11/09/24 12:27 Dose: 4 units Latanoprost (Latanoprost 0.005% Op Soln 2.5 Ml Btl) 1 drops OPB HS [facility] Stop: 12/07/24 20:59 Last Admin: 11/08/24 20:51 Dose: 1 drops Metoprolol Succinate (Metoprolol Succ 50mg Ext Rel Tab) 150 mg PO BID [facility] Stop: 12/07/24 20:59 Last Admin: 11/09/24 09:08 Dose: 150 mg Miscellaneous (Order Awaiting Action: Ciclopirox 8 % Solution) 1 each N/A QS [facility] Stop: 12/07/24 07:59 Last Admin: 11/09/24 09:10 Dose: Not Given Miscellaneous (Carbohydrates For Hypoglycemia ) 15 - 30 gm PO UD PRN PRN Reason: Hypoglycemia Protocol Stop: 12/07/24 01:30 Multivitamins (Multivitamin Tab) 1 tab PO QAM [facility] Stop: 12/07/24 08:59 Last Admin: 11/09/24 09:09 Dose: 1 tab Nitroglycerin (Nitroglycerin Sl 0.4 Mg/Tab Tab) 0.4 mg SL Q5M PRN PRN Reason: Chest Pain Stop: 12/07/24 01:30 Pantoprazole Sodium (Pantoprazole 40 Mg Tab) 40 mg PO QAM [facility] Stop: 12/07/24 08:59 Last Admin: 11/09/24 09:09 Dose: 40 mg Polyethylene Glycol (Polyethylene (Miralax) 17 Gm Pack) 17 gm PO DAILY PRN PRN Reason: Constipation Stop: 12/07/24 01:30 Rivaroxaban (Rivaroxaban 20 Mg Tab) 20 mg PO QDD [facility] Stop: 12/07/24 16:29 Last Admin: 11/08/24 17:09 Dose: 20 mg Sacubitril/Valsartan (Valsartan/Sacubitril 26/24mg Tab) 1 tab PO BID [facility] Stop: 12/07/24 08:59 Last Admin: 11/09/24 09:09 Dose: 1 tab Spironolactone (Spironolactone 12.5 Mg Tab) 12.5 mg PO DAILY [facility] Stop: 12/07/24 08:59 Last Admin: 11/09/24 09:09 Dose: 12.5 mg Timolol Maleate (Timolol Maleate 0.5% Op Soln 5 Ml Btl) 1 drops OPR BID [facility] Stop: 12/07/24 08:59 Last Admin: 11/09/24 09:09 Dose: 1 drops Vitamin D (Cholecalciferol 25 Mcg (1000 Units) Tab) 50 mcg PO QAM [facility] Stop: 12/07/24 08:59 Last Admin: 11/09/24 09:08 Dose: 50 mcg Zinc Acetate/Diphenhydramine (Diphenhydramine 2%/Zinc 0.1% Cream 28.4gm Tube) 1 appln EXT BID [facility] Stop: 12/06/24 23:29 Last Admin: 11/09/24 09:08 Dose: 1 appln
--- NOTE | 2024-11-09 14:46 | Cardiology Progress Note ---
Date of Service November 09, 2024 Assessment & Plan (1) Acute systolic CHF (congestive heart failure): (2) JOSHI (dyspnea on exertion): (3) Atrial fibrillation with rapid ventricular response: (4) Cardiac defibrillator in place: (5) HTN (hypertension): Plan 11/07/24 Patient admitted with signs/symptoms of acute on chronic HFrEF. Long history of non ischemic cardiomyopathy with LVEF 25%. IV Lasix initiated in ER. He has received several doses of 20 mg IV. Increase dose to 40 mg IV BID with next dose this afternoon. Monitor I+O's Daily weight with standing scale. Monitor electrolytes/renal function Continue spironolactone Recently admitted with hyperthyroidism and afib RVR. Amiodarone discontinued and ongoing rate control strategy recommended. Afib rates remain borderline elevated on admission. Increase metoprolol to 150 mg BID. Continue Xarelto 20 mg daily for anticoagulation LVEF 25% in Sep 2024 - stable. Single lead ICD - appropriate function several weeks ago. Continue Entresto, metoprolol. There has been prior discussion about ICD upgrade to BIV device if he has worsening CHF symptoms. QRS 120 ms. Outpatient EP f/u recommended 11/08/24: Patient with interval improvement in his volume and respiratory status overnight. 2.2 L output in the last 24 hours. Weight trending downward. Received additional IV lasix this morning. If ambulating in hallways without dyspnea/hypoxia, likely discharge in the next 24 hours. Would transition to oral furosemide 40 mg on discharge (prior home dose was 20 mg) Afib rates improving Continue higher dose metoprolol 150 mg BID Supplement magnesium. Continue Xarelto for anticoagulation therapy. Patient with chronic HFrEF - LVEF 25% Single lead ICD in place. Now has widened QRS and worsening CHF symptoms. Likely would benefit from BIV upgrade. EP outpatient follow up recommended. 11/09/24: Continued diuresis over the last 24 hours noted. Weight continues to trend downward but remains about 5 lbs above baseline per patient. Ongoing edema noted as well. continue IV lasix 40 mg BID today. Monitor I+O's supplement potassium and magnesium. Chronic afib noted. Rates borderline elevated Metoprolol had been increased to 150 mg BID earlier this admission. Digoxin added yesterday. Rates currently 90-100 Continue Xarelto for anticoagulation therapy. LVEF low at 25% - chronic/stable Single lead ICD in place. would likely benefit from BIV upgrade now with widened QRS and CHF symptoms. EP outpatient follow up. Case discussed with Dr. Villegas I spent a total of 35 minutes on the date of service in preparation, delivery, and documentation of the care provided to this patient, excluding any time spent in the performance of separately billed3 services. Justina Brower PA-C Department of Cardiology, [facility] This chart was completed in part utilizing Speech Voice Recognition Software. Grammatical errors, random word insertions, pronoun errors, and incomplete sentences are an occasional consequence of this system due to software limitations, ambient noise, and hardware issues. Any formal questions or concerns about the content, text, or information contained within the body of this dictation should be directly addressed to the provider for clarification. Admission and Anticipated Discharge Date Admission Date: November 06, 2024 Supervising Physician Co-Signing Physician Notes I have personally performed a history and physical examination on the patient. I have reviewed the advance practitioner's documentation, and I agree with, and take responsibility for the plan of care. 69-year-old male with acute on chronic HFrEF. Nonischemic cardiomyopathy with left ventricular ejection fraction 25-30% confirmed by recent echocardiogram in September. Amiodarone recently discontinued due to hyperthyroidism. Rate control strategy adopted. Heart rate improved with titration of beta-marcella therapy 11/07/2024. Oral digoxin added 11/08/2024. Denies palpitations or lightheadedness. Dyspnea/edema improved. Recommendations: * Continue metoprolol to 150 mg twice daily, entresto, and digoxin as ordered. * Continue anticoagulation with Xarelto. * IV Lasix 40 mg twice daily. * Transition to oral diuretic therapy in the next 24-48 hours. * Monitor fluid balance, daily weight, GFR, and electrolytes. * Outpatient electrophysiology consultation to consider BiV ICD upgrade. I spent a total of 30 minutes on the date of service in preparation, delivery, and documentation of the care provided to this patient, excluding any time spent in the performance of separately billed services. Michael Villegas DO, [facility] Subjective Patient resting at edge of bed. Feeling "good". Admits that he is still up 5 lbs above baseline weight. Still diuresing. Frequent urination noted. Ongoing edema reported as well. Variable rates with persistent afib. Review of Systems Review of Systems: All systems reviewed & are unremarkable except as noted in HPI & below Physical Exam Constitutional: WD/WN, vitals as above + obese; no acute distress Neck: trachea midline, no thyromegaly Respiratory: + cough; no labored breathing Auscult ation: + diminished lung sounds Cardiovascular: Rate/Rhythm: + irregularly irregular Heart Sounds: normal S1 and normal S2; no murmur Vessels: no JVD Extremities: + edema (Trace to 1+ pretibial edema) Gastrointestinal (Abdomen): normal bowel sounds, soft, nontender, no hepatosplenomegaly Skin: no rashes, warm and dry Neurologic: PERRL, EOMI, accommodation nl, no face palsy, no dysarthria Results & Data Vital Signs (Past 12 Hours) Vital Signs Temp Pulse Pulse Resp BP Pulse Ox O2 Del Method 11/09/24 11:00 36.7 C 85 18 109/76 95 Room Air 11/09/24 08:04 104 H 11/09/24 08:00 Room Air 11/09/24 08:00 36.5 C 92 H 20 115/69 97 Room Air 11/09/24 02:43 36.7 C 90 18 115/68 96 Room Air Laboratory Results CBC 11/09/24 Range/Units 05:33 WBC 8.57 (4.8-10.8) K/ul RBC 4.81 (4.70-6.10) M/uL Hgb 11.0 L (14.0-18.0) g/dl Hct 35.8 L (42.0-52.0) % Plt Count 255 (130-400) K/uL Comprehensive Metabolic Panel 11/09/24 Range/Units 05:33 Sodium 135 L (136-145) mmol/L Potassium 3.7 (3.5-5.1) mmol/L Chloride 99 (98-107) mmol/L Carbon Dioxide 27 (21-32) mmol/L BUN 30 H (6-23) mg/dl Creatinine 1.23 (0.6-1.4) mg/dl Glucose 135 H (70-99(Fasting)) mg/dl Calcium 8.8 (8.6-10.3) mg/dl Intake and Output 11/08/24 11/09/24 11/09/24 22:59 06:59 14:59 Intake Total 680 / 680 0 / 680 100 / 100 Output Total 250 / 250 Balance 680 / 430 -250 / 430 100 / 100 Intake: IV 200 / 200 100 / 100 Magnesium Sulfate / D5w 1 gm In 200 / 200 100 / 100 100 ml @ 50 mls/hr IV Q2H [facility] Rx#:[id number] Oral 480 / 480 0 / 480 Output: Urine 250 / 250 Other: Weight 123 kg Weight Measurement Method Standing Scale Diagnostic Findings Telemetry reviewed: Persistent atrial fib with rates ranging 90-100's. He had 21 beat run of non sustained VT at 22:47 on 11/08. Medications Administered Current Inpatient Medications Acetaminophen (Acetaminophen 325 Mg Tab) 650 mg PO Q4H PRN PRN Reason: Pain or Fever Stop: 12/07/24 01:30 Aspirin (Aspirin 81 Mg Ectab) 81 mg PO QAM [facility] Stop: 12/07/24 08:59 Last Admin: 11/09/24 09:07 Dose: 81 mg Benzonatate (Benzonatate 100 Mg Capsule) 100 mg PO TID PRN PRN Reason: Cough Stop: 12/07/24 01:30 Brimonidine Tartrate (Brimonidine Tartrate 0.2% 5ml) 1 drops OPR BID [facility] Stop: 12/07/24 08:59 Last Admin: 11/09/24 09:07 Dose: 1 drops Dextrose (Dextrose 50% 50 Ml Syringe) 25 - 50 ml IV UD PRN; Protocol PRN Reason: Hypoglycemia Protocol Stop: 12/07/24 01:30 Digoxin (Digoxin 0.125 Mg Tab) 0.125 mg PO DAILY@1600 [facility] Stop: 12/09/24 15:59 Furosemide (Furosemide Inj 20 Mg/2 Ml Vial) 40 mg IV [id number] [facility] Stop: 12/07/24 13:59 Last Admin: 11/09/24 14:38 Dose: Not Given Glucagon (Glucagon For Inj 1 Mg Vial) 1 mg SQ UD PRN; Protocol PRN Reason: Hypoglycemia Protocol Stop: 12/07/24 01:30 Glucose (Glucose 40% Gel 15 Gm Tube) 15 - 30 gm PO UD PRN; Protocol PRN Reason: Hypoglycemia Protocol Stop: 12/07/24 01:30 Glucose (Glucose 10 Tab/Tube) 4 - 8 tab PO UD PRN; Protocol PRN Reason: Hypoglycemia Protocol Stop: 12/07/24 01:30 Insulin Aspart (Insulin Aspart Per Unit Charge) 0 units SC ACHS [facility] Stop: 12/07/24 07:29 Last Admin: 11/09/24 12:27 Dose: 4 units Latanoprost (Latanoprost 0.005% Op Soln 2.5 Ml Btl) 1 drops OPB HS [facility] Stop: 12/07/24 20:59 Last Admin: 11/08/24 20:51 Dose: 1 drops Metoprolol Succinate (Metoprolol Succ 50mg Ext Rel Tab) 150 mg PO BID [facility] Stop: 12/07/24 20:59 Last Admin: 11/09/24 09:08 Dose: 150 mg Miscellaneous (Order Awaiting Action: Ciclopirox 8 % Solution) 1 each N/A QS [facility] Stop: 12/07/24 07:59 Last Admin: 11/09/24 09:10 Dose: Not Given Miscellaneous (Carbohydrates For Hypoglycemia ) 15 - 30 gm PO UD PRN PRN Reason: Hypoglycemia Protocol Stop: 12/07/24 01:30 Multivitamins (Multivitamin Tab) 1 tab PO QAM [facility] Stop: 12/07/24 08:59 Last Admin: 11/09/24 09:09 Dose: 1 tab Nitroglycerin (Nitroglycerin Sl 0.4 Mg/Tab Tab) 0.4 mg SL Q5M PRN PRN Reason: Chest Pain Stop: 12/07/24 01:30 Pantoprazole Sodium (Pantoprazole 40 Mg Tab) 40 mg PO QAM [facility] Stop: 12/07/24 08:59 Last Admin: 11/09/24 09:09 Dose: 40 mg Polyethylene Glycol (Polyethylene (Miralax) 17 Gm Pack) 17 gm PO DAILY PRN PRN Reason: Constipation Stop: 12/07/24 01:30 Rivaroxaban (Rivaroxaban 20 Mg Tab) 20 mg PO QDD [facility] Stop: 12/07/24 16:29 Last Admin: 11/08/24 17:09 Dose: 20 mg Sacubitril/Valsartan (Valsartan/Sacubitril 26/24mg Tab) 1 tab PO BID [facility] Stop: 12/07/24 08:59 Last Admin: 11/09/24 09:09 Dose: 1 tab Spironolactone (Spironolactone 12.5 Mg Tab) 12.5 mg PO DAILY [facility] Stop: 12/07/24 08:59 Last Admin: 11/09/24 09:09 Dose: 12.5 mg Timolol Maleate (Timolol Maleate 0.5% Op Soln 5 Ml Btl) 1 drops OPR BID [facility] Stop: 12/07/24 08:59 Last Admin: 11/09/24 09:09 Dose: 1 drops Vitamin D (Cholecalciferol 25 Mcg (1000 Units) Tab) 50 mcg PO QAM [facility] Stop: 12/07/24 08:59 Last Admin: 11/09/24 09:08 Dose: 50 mcg Zinc Acetate/Diphenhydramine (Diphenhydramine 2%/Zinc 0.1% Cream 28.4gm Tube) 1 appln EXT BID [facility] Stop: 12/06/24 23:29 Last Admin: 11/09/24 09:08 Dose: 1 appln
[2024-11-09] MEDS: DIGOXIN 0.125 MG TAB PO SCH (16:28)
[2024-11-09] MEDS ORDERED: oxyCODONE HCL IR 5 MG TAB (IMMEDIATE RELEASE) PO PRN (19:49)
--- NOTE | 2024-11-09 19:51 | Communication Note ---
Date of Service: November 09, 2024
[2024-11-09] MEDS: ACETAMINOPHEN 325 MG TAB PO PRN (20:00)
--- NOTE | 2024-11-09 21:21 | CT Scan Report ---
Exam(s): CT HEAD Without Contrast EXAM: CT Head Without Intravenous Contrast CLINICAL HISTORY: Reason for exam: rivero, noac. TECHNIQUE: Axial computed tomography images of the head/brain without intravenous contrast. CTDI is 35.65 mGy and DLP is 625.8 mGy-cm. Automated exposure control was utilized for the study. A dose lowering technique was utilized adhering to the principles of ALARA. COMPARISON: No relevant prior studies available. FINDINGS: Brain: Chronic periventricular ischemic demyelination changes seen due to small vessel disease. No hemorrhage. Ventricles: Unremarkable. No ventriculomegaly. Bones/joints: Unremarkable. No acute fracture. Soft tissues: Unremarkable. Sinuses: Partial opacification seen in the maxillary sinuses. Mastoid air cells: Unremarkable as visualized. No mastoid effusion. IMPRESSION: 1. No acute intracranial abnormality 2. Bilateral maxillary sinusitis Electronically signed by: Gene Gasca MD 11/09/24 21:19 PM
[2024-11-10 07:15] LABS: Hematocrit (blood only) 35.8 % (42.0-52.0); Hemoglobin 10.9 g/dl (14.0-18.0); Mean Corpuscular Hemoglobin 22.8 pg (25.0-34.0); Mean Corpuscular Hgb Conc 30.4 g/dL (32.0-36.0); Mean Corpuscular Volume 74.9 fL (80.0-100.0); Mean Platelet Volume 10.1 fL (9.4-12.4); Platelet Count 258 K/uL (130-400); RDW Coefficient of Variation 17.8 % (11.5-14.5); RDW Standard Deviation 47.3 fL (36.4-46.3); Red Blood Count 4.78 M/uL (4.70-6.10); White Blood Count 8.87 K/ul (4.8-10.8)
[2024-11-10 07:36] VITALS: RESP 20; TEMP 97.3
[2024-11-10 07:37] LABS: Calcium 8.7 mg/dl (8.6-10.3); Creatinine Clr Calc Pharmacy 70.3 ml/min; Phosphorus 3.4 mg/dl (2.5-4.9); Potassium 3.8 mmol/L (3.5-5.1)
[2024-11-10 11:24] VITALS: O2SAT 96
--- NOTE | 2024-11-10 12:38 | Cardiology Progress Note ---
Date of Service November 10, 2024 Assessment & Plan (1) Acute systolic CHF (congestive heart failure): (2) JOSHI (dyspnea on exertion): (3) Atrial fibrillation with rapid ventricular response: (4) Cardiac defibrillator in place: (5) HTN (hypertension): Plan 11/07/24 Patient admitted with signs/symptoms of acute on chronic HFrEF. Long history of non ischemic cardiomyopathy with LVEF 25%. IV Lasix initiated in ER. He has received several doses of 20 mg IV. Increase dose to 40 mg IV BID with next dose this afternoon. Monitor I+O's Daily weight with standing scale. Monitor electrolytes/renal function Continue spironolactone Recently admitted with hyperthyroidism and afib RVR. Amiodarone discontinued and ongoing rate control strategy recommended. Afib rates remain borderline elevated on admission. Increase metoprolol to 150 mg BID. Continue Xarelto 20 mg daily for anticoagulation LVEF 25% in Sep 2024 - stable. Single lead ICD - appropriate function several weeks ago. Continue Entresto, metoprolol. There has been prior discussion about ICD upgrade to BIV device if he has worsening CHF symptoms. QRS 120 ms. Outpatient EP f/u recommended 11/08/24: Patient with interval improvement in his volume and respiratory status overnight. 2.2 L output in the last 24 hours. Weight trending downward. Received additional IV lasix this morning. If ambulating in hallways without dyspnea/hypoxia, likely discharge in the next 24 hours. Would transition to oral furosemide 40 mg on discharge (prior home dose was 20 mg) Afib rates improving Continue higher dose metoprolol 150 mg BID Supplement magnesium. Continue Xarelto for anticoagulation therapy. Patient with chronic HFrEF - LVEF 25% Single lead ICD in place. Now has widened QRS and worsening CHF symptoms. Likely would benefit from BIV upgrade. EP outpatient follow up recommended. 11/09/24: Continued diuresis over the last 24 hours noted. Weight continues to trend downward but remains about 5 lbs above baseline per patient. Ongoing edema noted as well. continue IV lasix 40 mg BID today. Monitor I+O's supplement potassium and magnesium. Chronic afib noted. Rates borderline elevated Metoprolol had been increased to 150 mg BID earlier this admission. Digoxin added yesterday. Rates currently 90-100 Continue Xarelto for anticoagulation therapy. LVEF low at 25% - chronic/stable Single lead ICD in place. would likely benefit from BIV upgrade now with widened QRS and CHF symptoms. EP outpatient follow up. 11/10/24: Negative 4 L since admission. Weight down about 6 kg since admission. Interval improvement in his symptoms. Discharge on torsemide 20 mg daily (rather than home furosemide 20) Continue spironolactone 12.5 mg daily on discharge. He has f/u next week with Cardiology. At that time, will plan for repeta labs and titrion of diuretics if needed Daily weight encouraged when he returns home. Salt/sodium restriction encouraged. Afib rates have improved. Continue higher dose metoprolol succinate 150 mg BID along with digoxin 125 mcg daily on discharge. Continue Xarelto Single lead ICD in place. Would likely benefit from BIV upgrade now with widened QRS and CHF symptoms. EP outpatient follow up to be arranged. Stable for discharge today with above recommendations. message sent to hospitalist. Case discussed with Dr. Villegas I spent a total of 30 minutes on the date of service in preparation, delivery, and documentation of the care provided to this patient, excluding any time spent in the performance of separately billed3 services. Justina Brower PA-C Department of Cardiology, [facility] This chart was completed in part utilizing Speech Voice Recognition Software. Grammatical errors, random word insertions, pronoun errors, and incomplete sentences are an occasional consequence of this system due to software limitations, ambient noise, and hardware issues. Any formal questions or concerns about the content, text, or information contained within the body of this dictation should be directly addressed to the provider for clarification. Admission and Anticipated Discharge Date Admission Date: November 06, 2024 Supervising Physician Co-Signing Physician Notes I have personally performed a history and physical examination on the patient. I have reviewed the advance practitioner's documentation, and I agree with, and take responsibility for the plan of care. 69-year-old male with acute on chronic HFrEF. Nonischemic cardiomyopathy with left ventricular ejection fraction 25-30% confirmed by recent echocardiogram in September. Amiodarone recently discontinued due to hyperthyroidism. Rate control strategy adopted. Heart rate improved with titration of beta-marcella therapy 11/07/2024. Oral digoxin added 11/08/2024. Denies palpitations or lightheadedness. Dyspnea/edema improved. Recommendations: * Continue metoprolol to 150 mg twice daily, entresto, and digoxin as ordered. * Continue anticoagulation with Xarelto. * Discontinue IV Lasix. * Torsemide 20 mg daily at discharge. * Outpatient electrophysiology consultation to consider BiV ICD upgrade. I spent a total of 25 minutes on the date of service in preparation, delivery, and documentation of the care provided to this patient, excluding any time spent in the performance of separately billed services. Michael Villegas DO, [facility] Subjective Patient feeling good this morning. Hoping to go home. Ambulating in hallways without dyspnea. Reports improved edema and fluid status. Continues to urinate frequently. weight trending downward. Review of Systems Review of Systems: All systems reviewed & are unremarkable except as noted in HPI & below Physical Exam Constitutional: WD/WN, vitals as above + obese; no acute distress Neck: trachea midline, no thyromegaly Respiratory: no labored breathing and no cough Auscultation: + diminished lung sounds Cardiovascular: Rate/Rhythm: + irregularly irregular Heart Sounds: normal S1 and normal S2; no murmur Vessels: no JVD Extremities: + edema (Trace to 1+ pretibial edema) Gastrointestinal (Abdomen): normal bowel sounds, soft, nontender, no hepatosplenomegaly Skin: no rashes, warm and dry Neurologic: PERRL, EOMI, accommodation nl, no face palsy, no dysarthria Results & Data Vital Signs (Past 12 Hours) Vital Signs Temp Pulse Pulse Resp BP BP Pulse Ox 11/10/24 11:22 36.3 C L 88 20 97/60 L 96 11/10/24 07:33 36.3 C L 84 20 106/77 95 11/10/24 07:31 97 H 11/10/24 07:31 11/10/24 02:54 37.0 C 76 18 113/77 97 O2 Del Method 11/10/24 11:22 Room Air 11/10/24 07:33 Room Air 11/10/24 07:31 11/10/24 07:31 Room Air 11/10/24 02:54 Room Air Laboratory Results CBC 11/10/24 Range/Units 05:22 WBC 8.87 (4.8-10.8) K/ul RBC 4.78 (4.70-6.10) M/uL Hgb 10.9 L (14.0-18.0) g/dl Hct 35.8 L (42.0-52.0) % Plt Count 258 (130-400) K/uL Comprehensive Metabolic Panel 11/10/24 Range/Units 05:22 Sodium 133 L (136-145) mmol/L Potassium 3.8 (3.5-5.1) mmol/L Chloride 99 (98-107) mmol/L Carbon Dioxide 28 (21-32) mmol/L BUN 29 H (6-23) mg/dl Creatinine 1.26 (0.6-1.4) mg/dl Glucose 130 H (70-99(Fasting)) mg/dl Calcium 8.7 (8.6-10.3) mg/dl Intake and Output 11/09/24 11/10/24 11/10/24 22:59 06:59 14:59 Intake Total 50 / 950 450 / 950 Output Total 500 / 2400 750 / 2400 1200 / 1200 Balance -450 / -1450 -300 / -1450 -1200 / -1200 Intake: Oral 50 / 750 450 / 750 Output: Urine 500 / 2400 750 / 2400 1200 / 1200 Other: # Unmeasured Voids 1 1 Weight 122.3 kg Weight Measurement Method Standing Scale Diagnostic Findings Telemetry reviewed: Afib with improving rates ranging 70-90's. Medications Administered Current Inpatient Medications Acetaminophen (Acetaminophen 325 Mg Tab) 650 mg PO Q4H PRN PRN Reason: Pain or Fever Stop: 12/07/24 01:30 Last Admin: 11/09/24 20:00 Dose: 650 mg Aspirin (Aspirin 81 Mg Ectab) 81 mg PO QAM [facility] Stop: 12/07/24 08:59 Last Admin: 11/10/24 08:05 Dose: 81 mg Benzonatate (Benzonatate 100 Mg Capsule) 100 mg PO TID PRN PRN Reason: Cough Stop: 12/07/24 01:30 Brimonidine Tartrate (Brimonidine Tartrate 0.2% 5ml) 1 drops OPR BID [facility] Stop: 12/07/24 08:59 Last Admin: 11/10/24 08:05 Dose: 1 drops Dextrose (Dextrose 50% 50 Ml Syringe) 25 - 50 ml IV UD PRN; Protocol PRN Reason: Hypoglycemia Protocol Stop: 12/07/24 01:30 Digoxin (Digoxin 0.125 Mg Tab) 0.125 mg PO DAILY@1600 [facility] Stop: 12/09/24 15:59 Last Admin: 11/09/24 16:28 Dose: 0.125 mg Furosemide (Furosemide Inj 20 Mg/2 Ml Vial) 40 mg IV [id number] MEJIA Stop: 12/07/24 13:59 Last Admin: 11/10/24 06:10 Dose: 40 mg Glucagon (Glucagon For Inj 1 Mg Vial) 1 mg SQ UD PRN; Protocol PRN Reason: Hypoglycemia Protocol Stop: 12/07/24 01:30 Glucose (Glucose 40% Gel 15 Gm Tube) 15 - 30 gm PO UD PRN; Protocol PRN Reason: Hypoglycemia Protocol Stop: 12/07/24 01:30 Glucose (Glucose 10 Tab/Tube) 4 - 8 tab PO UD PRN; Protocol PRN Reason: Hypoglycemia Protocol Stop: 12/07/24 01:30 Insulin Aspart (Insulin Aspart Per Unit Charge) 0 units SC ACHS [facility] Stop: 12/07/24 07:29 Last Admin: 11/10/24 12:30 Dose: 5 units Latanoprost (Latanoprost 0.005% Op Soln 2.5 Ml Btl) 1 drops OPB HS [facility] Stop: 12/07/24 20:59 Last Admin: 11/09/24 20:43 Dose: 1 drops Metoprolol Succinate (Metoprolol Succ 50mg Ext Rel Tab) 150 mg PO BID [facility] Stop: 12/07/24 20:59 Last Admin: 11/10/24 08:05 Dose: 150 mg Miscellaneous (Order Awaiting Action: Ciclopirox 8 % Solution) 1 each N/A QS [facility] Stop: 12/07/24 07:59 Last Admin: 11/10/24 08:10 Dose: Not Given Miscellaneous (Carbohydrates For Hypoglycemia ) 15 - 30 gm PO UD PRN PRN Reason: Hypoglycemia Protocol Stop: 12/07/24 01:30 Multivitamins (Multivitamin Tab) 1 tab PO QAM [facility] Stop: 12/07/24 08:59 Last Admin: 11/10/24 08:06 Dose: 1 tab Nitroglycerin (Nitroglycerin Sl 0.4 Mg/Tab Tab) 0.4 mg SL Q5M PRN PRN Reason: Chest Pain Stop: 12/07/24 01:30 Oxycodone HCl (Oxycodone Hcl Ir 5 Mg Tab (Immediate Release)) 5 mg PO Q4H PRN PRN Reason: Pain Stop: 11/23/24 19:48 Pantoprazole Sodium (Pantoprazole 40 Mg Tab) 40 mg PO QAM [facility] Stop: 12/07/24 08:59 Last Admin: 11/10/24 08:06 Dose: 40 mg Polyethylene Glycol (Polyethylene (Miralax) 17 Gm Pack) 17 gm PO DAILY PRN PRN Reason: Constipation Stop: 12/07/24 01:30 Rivaroxaban (Rivaroxaban 20 Mg Tab) 20 mg PO QDD [facility] Stop: 12/07/24 16:29 Last Admin: 11/09/24 16:28 Dose: 20 mg Sacubitril/Valsartan (Valsartan/Sacubitril 26/24mg Tab) 1 tab PO BID [facility] Stop: 12/07/24 08:59 Last Admin: 11/10/24 08:07 Dose: 1 tab Spironolactone (Spironolactone 12.5 Mg Tab) 12.5 mg PO DAILY [facility] Stop: 12/07/24 08:59 Last Admin: 11/10/24 08:06 Dose: 12.5 mg Timolol Maleate (Timolol Maleate 0.5% Op Soln 5 Ml Btl) 1 drops OPR BID [facility] Stop: 12/07/24 08:59 Last Admin: 11/10/24 08:06 Dose: 1 drops Vitamin D (Cholecalciferol 25 Mcg (1000 Units) Tab) 50 mcg PO QAM [facility] Stop: 12/07/24 08:59 Last Admin: 11/10/24 08:05 Dose: 50 mcg Zinc Acetate/Diphenhydramine (Diphenhydramine 2%/Zinc 0.1% Cream 28.4gm Tube) 1 appln EXT BID [facility] Stop: 12/06/24 23:29 Last Admin: 11/10/24 08:05 Dose: 1 appln
--- NOTE | 2024-11-10 12:54 | Discharge Summary ---
Date of Service November 10, 2024 Admission HPI Per Admitting Provider 69-year-old male with past medical history significant for type 2 diabetes, hyperlipidemia, obstructive sleep apnea, nonischemic cardiomyopathy status post ICD, moderate mitral regurgitation, aortic root enlargement, paroxysmal atrial fibrillation, history of CAD, hypertension, primary open-angle glaucoma both eyes mild stage, presents with worsening lower extremity edema. Patient states in the nighttime when sleeping is having cough. While resting is okay but with the exertion is having dyspnea. Denies chest pain. No fevers. No headache. No runny nose or sore throat. No headaches. No abdominal pain. No nausea. Normal bowel and bladder movements. In the ER he received a dose of Lasix and a dose of metoprolol. He states after Lasix he micturated and thinks swelling in the lower extremities coming down. Patient also developed macular rash on upper extremities and back which is itchy since last 2 weeks. No recent new medications. Past medical history. As mentioned above Past surgical history. Colonoscopy. Bilateral total hip replacement. Social history. . Quit smoking 1995. Alcohol 2-3 drinks a week. No drug use. Family history. Half brother had colon cancer. Father had asthma. Mother had diabetes, heart disease and CVA. Admission Exam Per Admitting Provider General- Not in distress Head- atraumatic Eyes- PERRL. ENT- oropharynx clear Neck- supple, no JVD. Lungs- clear to auscultation no wheezing or crackles Heart- regular rhythm; no murmur, no gallop. Abdomen- normal bowel sounds, soft, nontender, no distension Extremities- b/l lower ext edema present. no erythema seen Neuro- alert, oriented PERRL, no facial palsy; no dysarthria; moves extremities. Skin- macular rash seen on upper extremities and back Principal Diagnosis Acute on chronic systolic heart failure. Discharge Exam General- morbidly obese elderly M in NAD Head- atraumatic Eyes- PERRL. Neck- supple, no JVD. Lungs- clear to auscultation no wheezing or crackles Heart- regular rhythm; no murmur Abdomen- normal bowel sounds, soft, nontender, no distension Extremities- b/l lower ext edema present. no erythema seen Neuro- alert, oriented PERRL, no facial palsy; no dysarthria; moves extremitie s. Skin- warm, dry Discharge Data Allergies Allergy/AdvReac Type Severity Reaction Status Date / Time [id number] Reductase AdvReac Intermediate Joint Pain Verified 11/06/24 19:53 Inhibitor Consultations 11/06/24 19:36 ED Decision to Admit Stat 11/07/24 08:00 Consult Cardiology Routine Ordered Studies 11/06/24 23:33 CT chest diagnostic wo con Urgent 11/09/24 19:50 CT head/brain wo con Stat Hospital Course (1) Acute systolic CHF (congestive heart failure): Per prior attending w/ addendum: 69 yo M with type 2 diabetes, hyperlipidemia, obstructive sleep apnea, nonischemic cardiomyopathy status post ICD, moderate mitral regurgitation, aortic root enlargement, paroxysmal atrial fibrillation, history of CAD, hypertension, primary open-angle glaucoma both eyes mild stage, presents with worsening lower extremity edema. Patient states in the nighttime when sleeping is having cough. While resting is okay but with the exertion is having dyspnea. Denies chest pain. No fevers. No headache. No runny nose or sore throat. No headaches. No abdominal pain. No nausea. Normal bowel and bladder movements. In the ER he received a dose of Lasix and a dose of metoprolol. He states after Lasix he micturated and thinks swelling in the lower extremities coming down. Patient also developed macular rash on upper extremities and back which is itchy since last 2 weeks. No recent new medications. Acute systolic CHF Nonischemic cardiomyopathy Echo done 10/12/2024 shows EF of 25 to 30%. Global hypokinesis of left ventricle. Right ventricle systolic pressure is moderately high at 50 to 60 mmHg Received IV Lasix 20 mg in the ER Cont. IV Lasix 40 mg bid as per cardiology. Continue home spironolactone. Continue home metoprolol succinate and Entresto with holding parameters. Telemetry Daily weights and I's and O's CT chest - no pna Cardiology consulted - acute on chronic HFrEF. Nonischemic cardiomyopathy with left ventricular ejection fraction 25-30% confirmed by recent echocardiogram in September. Heart rates borderline elevated on admission. Patient notes significant weight gain, dyspnea, and orthopnea. Amiodarone recently discontinued due to hyperthyroidism. Rate control strategy adopted. Recommendations: * digoxin 125 mcg daily. * metoprolol to 150 mg twice daily and entresto. * Xarelto. * IV Lasix 40 mg twice daily. * Transition to oral diuretic therapy in the next 24-48 hours. * Monitor fluid balance, daily weight, GFR, and electrolytes. * Outpatient electrophysiology consultation to consider BiV ICD upgrade. Atrial fibrillation On metoprolol succinate and Xarelto Amiodarone was stopped last admission because of abnormal thyroid function added digoxin, as above Obstructive sleep apnea On CPAP nightly Hyperthyroidism Thought to be from amiodarone which is stopped now Follow repeat labs Can discuss with Endo Type 2 diabetes Hold metformin Sliding scale Will monitor Hypertension Metoprolol succinate, Entresto with holding parameters Also on diuretics GERD On omeprazole Nonocclusive CAD On Repatha, beta-marcella and aspirin Rash Macular rash on extremities and back Benadryl cream for now Follow-up with PCP and dermatology DVT prophylaxis On Xarelto Disposition Telemetry Full code. Addendum 11/10/2024: Patient was seen and examined at bedside as a follow-up of acute on chronic systolic heart failure. Patient is hemodynamically stable and would like to go home. Discussed with cardiology, metoprolol dose increased to 150 Mg twice daily, digoxin has been added, furosemide changed to torsemide 20 Mg daily, patient is stable for discharge. Patient is being discharged to home with instruction for close follow-up with PCP and cardiology upon discharge. Patient has been advised to adhere to heart healthy low-sodium diet and fluid restriction of 1.8 L a day. Home Health Attestation I certify that this patient is under my care and that I, or a physicians multimedia production assistant working with me, had a face to-face encounter that meets the home health [id number] encounter requirements with this patient. The encounter with the patient was in whole, or in part, for the following medical condition, which is the primary reason for home health care (list med ical condition): I certify that, based on my findings, the following services are medically necessary home health services: My clinical findings support the need for the above services because: Further, I certify that my clinical findings support that this patient is homebound (i.e. absences from home require considerable and taxing effort and are for medical reasons or roman catholic services or infrequently or of short duration when for other reasons) because: Certification for Home Health Services: Based on the above findings, I certify that this patient is confined to the home and needs intermittent [facility] care, physical therapy and/or speech the rapy or continues to need occupational therapy. The patient is under my care, and I have initiated the establishment of the plan of care. This patient will be followed by a physician who will periodically review the plan of care. Total Time Total Time Spent Total Time Spent (In Minutes): 35 Discharge Plan Discharge Items Patient Disposition: Home - Self-Care Reason For Visit: CHF Discharge Diagnosis: Acute systolic CHF (congestive heart failure) Atrial fibrillation with rapid ventricular response Activity: Per Instructions section Non-emergency contact: Primary Care Provider and Buying Agent Call non-emergency contact if: you have any medication questions and your symptoms worsen Follow-up/Referrals: Jazmine Anguiano MD [Primary Care Provider] - (Date & Time 11/15/2024 11:00 AM Provider: Jazmine Anguiano MD Family Practice [facility] ) Justina Brower PA-C [Physician Stereo Equipment Salesperson] - (Date & Time 11/13/2024 10:30 AM Provider: Justina Brower PA-C Cardiology, [facility] ) Diet: Carb Consistent or DM2 and Heart Healthy Addtl Attending Provider Instructions: Follow up with your primary care doctor and your scrap bunch maker. The appointment with your primary care physician was scheduled for you for 11/15/2024. The appointment with cardiology was scheduled for you for 11/13/2024. Addtl Playground Director Provider Instructions: Call 911 and go to the Emergency Room if: * You have tightness or pain in your chest that does not go away with rest or Nitroglycerin * You are very short of breath even with rest Call your doctor if any of the following symptoms or problems start or get worse: * Shortness of breath or difficulty breathing * Wake up at night short of breath * Chest pain * Cough * Swelling of your hands, fee, or legs * More fatigued or tired with your normal activity * Palpitations - sudden fast heart beats WEIGHT * Weigh yourself every morning after using the bathroom. * Use the same scale. * Wear the same amount of clothing. * Write your weight down on your chart. * Call your doctor if you gain more than 2-3 pounds in 1-2 days. MEDICATIONS * Use this discharge instruction sheet for instructions. * Take your medications at the time your doctor ordered. * Do not skip a dose of your medicines. * If you miss a dose of medicine, take as soon as possible, but DO NOT DOUBLE A DOSE. * Read your medicine information when you get home. * Know all of the side effects of your medicine. * Call your doctor's office if you have any side effects. * Be sure all of your doctors know what medicine and herbs you take (including cold, flu, and herbal medicine). * Pain Medicine: If you do not get relief from your pain, please call your doctor for help. Take the following with you to your follow-up doctor appointments: * Weight Chart * Medication List * List of questions Do not drink excessive alcohol, beer or wine. Pending Studies at Discharge: No Stand-Alone Forms: My [facility] [place] [employer] [facility], Smoking Cessation Medications and DC Order Prescriptions: New digoxin [Digitek] 125 mcg (0.125 mg) Tablet 0.125 mg PO DAILY@1600 Qty: 30 0RF metoprolol succinate 50 mg Tablet Extended Release 24 Hr 150 mg PO BID Qty: 180 0RF torsemide 20 mg tablet 20 mg PO DAILY Qty: 30 0RF Continued multivitamin Tablet 1 tab PO QAM aspirin 81 mg Tablet,Delayed Release (Dr/Ec) 81 mg PO QAM omega 1-lqf-sch-fish oil [Fish Oil] 1,200 (144-216) mg Capsule 1 cap PO HS coQ10 (ubiquinol) 100 mg Capsule 100 mg PO QAM brimonidine-timolol 0.2-0.5 % drops 1 drp OPR BID Xarelto 20 mg tablet 20 mg PO QDD omeprazole 20 mg capsule,delayed release(DR/EC) 20 mg PO QAM metformin 500 mg tablet 500 mg PO BIDM Rx Instructions: take with morning and evening meal latanoprost 0.005 % drops 1 drp OPB HS cholecalciferol (vitamin D3) [Vitamin D3] 50 mcg (2,000 unit) Tablet 50 mcg PO QAM spironolactone 25 mg Tablet 12.5 mg PO DAILY Entresto 24-26 mg Tablet 1 tab PO BID Repatha SureClick 140 mg/mL pen injector 140 mg SUBCUT .EVERY 14 DAYS Patient Comments: Takes and of each month benzonatate 100 mg capsule 100 mg PO TID PRN (Reason: Cough) Ozempic 2 mg/dose (8 mg/3 mL) pen injector 2 mg SUBCUT WK Rx Instructions: sundays ciclopirox 8 % Solution 1 applic TOPICAL HS Discontinued furosemide 20 mg Tablet 20 mg PO QAM metoprolol succinate 50 mg tablet extended release 24 hr 50 mg PO QAM Qty: 30 0RF Rx Instructions: Take the 50mg tablet with the metoprolol succinate 100mg tablet EVERYDAY ONLY IN THE MORNINGS for a total of metoprolol succinate 150mg in the mornings only. metoprolol succinate 100 mg tablet extended release 24 hr 100 mg PO BID Qty: 60 0RF Discharge Orders: Discharge Order- CHF (Routine); Ordered 11/10/24 Ordered By: Joe Trujillo/Other Patient Handouts: Tips for Using Less Salt, Managing Type 2 Diabetes, Diabetes: Meal Planning Admission Data Admit Date/Time: 11/06/24 23:08 Attending Provider: Joe Ann Admit Provider: [place] Primary Care Provider: Jazmine Anguiano Other Providers: [place]; Michael Villegas
[2024-11-10 13:23] VITALS: BP 106/77; PULSE 99
== END 2024-11-10 15:49 | disposition home or self-care (01) | DRG 291 ==
LOC: ED 18:19 → SUATTDRO 23:08 → 2S 23:08

== ENCOUNTER 2024-11-14 16:35 | Inpatient (IN) ==
[2024-11-14 17:24] LABS: Basophils # (auto) 0.03 K/uL (0.00-0.20); Basophils % (auto) 0.2 %; Eosinophils # (auto) 0.05 K/uL (0.00-0.50); Eosinophils % (auto) 0.3 %; Hematocrit (blood only) 38.5 % (42.0-52.0); Hemoglobin 11.7 g/dl (14.0-18.0); Immature Granulocytes # (auto) 0.12 K/uL (0.01-0.20); Immature Granulocytes % (auto) 0.8 %; Lymphocytes # (auto) 0.52 K/uL (1.20-3.40); Lymphocytes % (auto) 3.5 %; Mean Corpuscular Hemoglobin 22.5 pg (25.0-34.0); Mean Corpuscular Hgb Conc 30.4 g/dL (32.0-36.0); Mean Platelet Volume 10.1 fL (9.4-12.4); Monocytes # (auto) 0.98 K/uL (0.11-0.59); Monocytes % (auto) 6.6 %; Neutrophils # (auto) 13.19 K/uL (1.40-6.50); Neutrophils % (auto) 88.6 %; Platelet Count 294 K/uL (130-400); RDW Coefficient of Variation 18.1 % (11.5-14.5); White Blood Count 14.89 K/ul (4.8-10.8)
[2024-11-14 17:50] LABS: INR 1.4 (0.9-1.1); Partial Thromboplastin Ratio 1.5; Partial Thromboplastin Time 41 Seconds (21-31); Prothrombin Time 14.7 Seconds (9.0-12.0)
[2024-11-14 17:51] LABS: Alanine Aminotransferase 24 U/L (7-52); Albumin Level 3.6 gm/dl (3.4-5.0); Alkaline Phosphatase 117 U/L (34-104); Anion Gap 8 (3-11); Aspartate Aminotransferase 19 U/L (13-39); BUN Creatinine Ratio 25.1 (10-20); Bilirubin,Total 0.8 mg/dl (0.2-1.0); Blood Urea Nitrogen 49 mg/dl (6-23); Calcium 9.4 mg/dl (8.6-10.3); Carbon Dioxide 28 mmol/L (21-32); Chloride 94 mmol/L (98-107); Globulin 3.5 gm/dl (2.5-4.0); Glucose 241 mg/dl (70-99(Fasting)); Magnesium 1.9 mg/dl (1.7-2.4); Sodium 130 mmol/L (136-145); Total Protein 7.1 gm/dl (6.0-8.3)
[2024-11-14 17:55] LABS: Troponin I High Sensitivity 39.1 pg/ml (0-20)
[2024-11-14 18:17] LABS: Appearance Urine Turbid (Clear); Bacteria Urine Automated 4+ (None Seen); Bilirubin Urine Negative (Negative); Blood Urine 3+ (Negative); Color Urine Yellow; Epithelial Cell Urine Auto 0-2 /hpf (0-2); Glucose Urine UA Negative (Negative); Ketones Urine Negative (Negative); Leukocyte Esterase Urine 3+ (Negative); Nitrite Urine Negative (Negative); Protein Urine 1+ (Negative); RBC Urine Automated >20 /hpf (0-2); Specific Gravity Urine 1.015 (1.000-1.030); Urobilinogen Urine Negative (Negative); WBC Urine Automated >50 /hpf (0-5); pH Urine 5.5 (4.5-7.5)
[2024-11-14 18:44] LABS: Adenovirus PCR Not Detected (NotDetected); Bordetella parapertussis PCR Not Detected (NotDetected); Bordetella pertussis PCR Not Detected (NotDetected); Chlamydia pneumoniae PCR Not Detected (NotDetected); Coronavirus 229E PCR Not Detected (NotDetected); Coronavirus CoV-2 (COVID19)PCR Not Detected (NotDetected); Coronavirus HKU1 PCR Not Detected (NotDetected); Coronavirus NL63 PCR Not Detected (NotDetected); Coronavirus OC43PCR Not Detected (NotDetected); Human Metapneumovirus PCR Not Detected (NotDetected); Influenza A PCR Not Detected (NotDetected); Influenza B PCR Not Detected (NotDetected); Mycoplasma pneumoniae PCR Not Detected (NotDetected); Parainfluenza Virus 1 PCR Not Detected (NotDetected); Parainfluenza Virus 2 PCR Not Detected (NotDetected); Parainfluenza Virus 3 PCR Not Detected (NotDetected); Parainfluenza Virus 4 PCR Not Detected (NotDetected); Respiratory Syncytial VirusPCR Not Detected (NotDetected); Rhinovirus/Enterovirus PCR Not Detected (NotDetected)
[2024-11-14] MEDS: cefTRIAXone SODIUM 2,000 MG/50 ML BAG IV STA (19:38)
[2024-11-14 21:14] LABS: Adenovirus F 40/41 PCR Not Detected (NotDetected); Astrovirus PCR Not Detected (NotDetected); Campylobacter PCR Not Detected (NotDetected); Cryptosporidium PCR Not Detected (NotDetected); Cyclospora cayetanensis PCR Not Detected (NotDetected); Entamoeba histolytica PCR Not Detected (NotDetected); Enteroaggregative E.coli(EAEC) Not Detected (NotDetected); Enteropathogenic E.coli (EPEC) Not Detected (NotDetected); Enterotoxigenic E.coli (ETEC) Not Detected (NotDetected); Giardia lamblia PCR Not Detected (NotDetected); Norovirus GI/GII PCR Not Detected (NotDetected); Plesiomonas shigelloides PCR Not Detected (NotDetected); Rotavirus A PCR Not Detected (NotDetected); Salmonella PCR Not Detected (NotDetected); Sapovirus PCR Not Detected (NotDetected); Shiga-like Toxin E.coli (STEC) Not Detected (NotDetected); Shigella/Enteroinvasive E.coli Not Detected (NotDetected); Vibrio cholerae PCR Not Detected (NotDetected); Vibrio species PCR Not Detected (NotDetected); Yersinia enterocolitica PCR Not Detected (NotDetected)
[2024-11-14] MEDS: MAGNESIUM SULFATE / D5W 1 GM/100 ML BAG IV ONE (22:13)
--- NOTE | 2024-11-14 22:22 | History & Physical Report ---
Date of Service November 14, 2024 Assessment & Plan (1) Severe sepsis: Plan: Severe sepsis SIRS plus ARF on CKD Secondary to complicated UTI Rule out C. difficile diarrhea Atrial fibrillation with rapid ventricular response secondary to illness, patient on Xarelto chronic systolic heart failure secondary to nonischemic cardiomyopathy (EF 25- 29%, TTE 2024) sp ICD, equivocal volume status, congestion on x-ray, patient intravascularly dry Painless LGIB in the setting of NOAC rx, H&H currently stable at baseline hemoglobin valvular heart disease (moderate MR/TR) aortic root enlargement nonocclusive CAD as per records HTN, borderline BP hyperlipidemia/statin intolerance, patient on Repatha JOSE DE JESUS on CPAP DM2 on oral medications, suboptimal control as well recent hemoglobin A1c of 8.7 this month Persistent hyperthyroidism, past history of amiodarone Rx past tobacco abuse Admit to PCU CS, Zosyn Stool C. difficile, Flagyl 1 dose given sepsis criteria, oral vancomycin if stool C. difficile positive Monitor creatinine response to gentle IV hydration Decreased maintenance beta-marcella dose for now given borderline BP predisposing to acute tubular necrosis given current relatively high doses of home beta- marcella Rx Current high doses of maintenance beta-marcella dose may be causing excessive fatigue concerns. Cardiology consult Re: Cardiac medication management Hold Eliquis given painless LGIB, near liquid diet for now follow H&H, transfuse PRBC if hemoglobin less than 8 and or for symptomatic anemia GI consult if with progressive bleeding Basal insulin, ISS BG goal 1 10-1 40, carb count coverage DVT prophylaxis. SCDs while Eliquis on hold due to LGIB Full code Patient's requesting updates from providers. Ms. Eva James, contact #[phone]. Text document was generated using [employer] voice recognition software. It may contain grammatical or spelling errors. Kindly contact undersigned for clarification of any documentation item in question. History of Present Illness Chief Complaint: Abnormal blood work, weakness Primary Care Provider: Jazmine Anguiano MD History obtained from patient, family, and records. Medical history significant for chronic systolic heart failure secondary to nonischemic cardiomyopathy (EF 25-29%, TTE 2024) sp ICD, valvular heart disease (moderate MR/TR), aortic root enlargement, nonocclusive CAD as per records, A. fib on Xarelto, HTN, hyperlipidemia/statin intolerance, JOSE DE JESUS on CPAP, DM2 on oral medications, amiodarone induced hyperthyroidism, CRI (recent creatinine of 1.4), chronic anemia (baseline hemoglobin 10-11), kidney stones as per patient, past tobacco abuse. Two [facility] admissions since September 2024. Recent confinement November 06 to 2024 for decompensated heart failure. Patient discharged on new digoxin and torsemide medications. Toprol XL increased to 150 twice daily., Outpatient EPS eval contemplated for biventricular ICD upgrade. Patient noted to be increasingly weak at home as per . Very tired, no headache symptoms. Very sleepy at home. Denies chest pain, SOB. Chronic dry cough symptoms attributed to some medications as per . Watery diarrhea symptoms without abdominal pain. Patient seen on outpatient [facility] cardiology visit yesterday. SBP 100s. Toprol-XL dose reduced. Consider Entresto reduction due to low BP. Diarrhea possibly from torsemide, consider reverting to furosemide as per provider note. Repeat labs ordered including TSH. Endocrinology consultation to be considered if patient remains hyperthyroid as per note. Abnormal labs resulted yesterday. WBC 25.14 Serum creatinine 2.5 TSH still elevated. Patient instructed to hold torsemide, spironolactone and Entresto medications. Repeat chemistry recommended by cardiology provider in 2 days. Today patient noted dysuria symptoms without abdominal or flank pain. Blood noted on toilet paper on wiping his bottom as well. Patient brought to ER for evaluation. Ceftriaxone administered at the ER. 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 Allergies Allergy/AdvReac Type Severity Reaction Status Date / Time Dmgkhag-GIS-QpB Reductase AdvReac Intermediate Joint Pain Verified 11/14/24 19:23 Inhibitor Home Medications Medication Instructions Recorded Confirmed Type aspirin 81 mg tablet,delayed 81 mg PO QAM 01/05/21 11/14/24 History release coQ10 (ubiquinol) 100 mg capsule 100 mg PO QAM 01/05/21 11/14/24 History multivitamin 1 tab PO QAM 01/05/21 11/14/24 History omega 5-cbb-uyo-fish oil 1,200 mg 1 cap PO HS 01/05/21 11/14/24 History (144 mg-216 mg) capsule (Fish Oil) cholecalciferol (vitamin D3) 50 50 mcg PO QAM 05/15/21 11/14/24 History mcg (2,000 unit) tablet (Vitamin D3) latanoprost 0.005 % eye drops 1 drp OPB HS 05/15/21 11/14/24 History metformin 500 mg tablet 500 mg PO BIDM 05/15/21 11/14/24 History omeprazole 20 mg capsule,delayed 20 mg PO QAM 05/15/21 11/14/24 History release brimonidine 0.2 %-timolol 0.5 % 1 drp OPR BID 12/22/22 11/14/24 History eye drops rivaroxaban 20 mg tablet (Xarelto) 20 mg PO QDD 12/22/22 11/14/24 History benzonatate 100 mg capsule 100 mg PO TID PRN Cough 10/16/24 11/14/24 History ciclopirox 8 % topical solution 1 applic topical HS 10/16/24 11/14/24 History evolocumab 140 mg/mL subcutaneous 140 mg subcut .EVERY 14 DAYS 10/16/24 11/14/24 History pen injector (Repatha SureClick) semaglutide 2 mg/dose (8 mg/3 mL) 2 mg subcut WK 10/16/24 11/14/24 History subcutaneous pen injector (Ozempic) digoxin 125 mcg (0.125 mg) tablet 0.125 mg PO DAILY@1600 #30 tabs 11/10/24 11/14/24 Rx (Digitek) metoprolol succinate 50 mg 150 mg (3 x 50 mg) PO BID #180 tabs 11/10/24 11/14/24 Rx tablet,extended release 24 hr Past Med/Surg History Problem List (Updated 11/15/24 @ 01:19 by Chester Bradshaw MD) FRED (acute kidney injury) (Acute) Acute UTI (Acute) Severe sepsis Acute systolic CHF (congestive heart failure) JOSHI (dyspnea on exertion) (Acute) Fluid overload (Acute) Elevated troponin (Acute) Mitral regurgitation Hyperthyroidism (Acute) Elevated brain natriuretic peptide (BNP) level (Acute) Elevated troponin (Acute) Atrial fibrillation with rapid ventricular response (Acute) Encounter for pre-operative examination Atrial fibrillation with RVR (Acute) Cardiac defibrillator in place (Chronic) Morbid obesity (Chronic) BMI 41.8 Chronic systolic congestive heart failure, NYHA class 2 (Chronic) Hyperlipidemia (Chronic) CAD (coronary artery disease) (Chronic) HTN (hypertension) (Chronic) Medical History Osteoarthritis Diabetes mellitus, type 2 On anticoagulant therapy xarelto daily Glaucoma SARS-CoV-2 positive hx of x2--04/2021 and 08/2021--no symptoms now Atrial fibrillation on xarelton/metoprolol--follows with Dr. Aldridge Acute HFrEF (heart failure with reduced ejection fraction) SOB (shortness of breath) JOSE DE JESUS (obstructive sleep apnea) cpap NICM (nonischemic cardiomyopathy) Surgical History Status post hardware removal History of open reduction and internal fixation (ORIF) procedure left ankle fx repair--hardware removed History of removal of cyst off knuckle History of prostate biopsy benign History of colonoscopy History of wisdom tooth extraction History of cardiac cath 2012 @ [place], [place]--no stents S/P ICD (internal cardiac defibrillator) procedure placed 04/26/19 Dr. Guevara @ [facility]--[facility] History of total right hip arthroplasty History of total left hip arthroplasty Family History Mother Stroke Father Coronary heart disease Other No family history of adverse response to anesthesia Social History Smoking Status: Former smoker Second Hand Exposure: No; Do You Dip or Chew Tobacco: No; Tobacco Cessation Education Requested by Patient: No Hx Alcohol Use: No Hx Substance Use: No Preferred Language: Bahraini Communication Ability: Effective Supervisor Paste Mixing Required: No Beliefs That Will Affect Care: None Current Living Situation: Spouse Other Information That Helps Us Care for You: No Feels Safe at Home: Yes Safety Concerns: Feels Safe At This Time Assistive Devices: Cane and Glasses Review of Systems Review of Systems: As per HPI, all other systems reviewed and negative Physical Exam Physical Exam: GENERAL: Comfortable, pleasant, morbidly obese SKIN: Pallor, warm HEENT: Partial alopecia, bespectacled, pale palpebral conjunctivae, no ptosis, dry buccal mucosa NECK : Supple, short neck, no tenderness CHEST : Decreased breath sounds, no tenderness HEART : irregular, systolic murmur ABDOMEN: Some distention, nontender EXTREMITIES : Bilateral LE swelling, no LE tenderness, no other conspicuous deformities noted NEUROLOGIC : Coherent, no facial asymmetry, no other gross focality Results & Data Results & Data Vital Signs (Past 12 Hours) Vital Signs Temp Pulse Pulse Resp BP BP Pulse Ox 11/14/24 22:12 92 H 18 113/76 98 11/14/24 22:10 96 H 11/14/24 21:00 101 H 20 110/74 96 11/14/24 19:00 104 H 20 118/85 96 11/14/24 18:35 91 H 18 105/80 95 11/14/24 18:23 111 H 11/14/24 16:37 36.9 C 106 H 20 102/55 L 97 O2 Del Method 11/14/24 22:12 Room Air 11/14/24 22:10 11/14/24 21:00 Room Air 11/14/24 19:00 Room Air 11/14/24 18:35 Room Air 11/14/24 18:23 11/14/24 16:37 Room Air Laboratory Results Laboratory Results WBC 14.89 K/ul (4.8-10.8) H 11/14/24 17:08 RBC 5.20 M/uL (4.70-6.10) 11/14/24 17:08 Hgb 11.7 g/dl (14.0-18.0) L 11/14/24 17:08 Hct 38.5 % (42.0-52.0) L 11/14/24 17:08 MCV 74.0 fL (80.0-100.0) L 11/14/24 17:08 MCH 22.5 pg (25.0-34.0) L 11/14/24 17:08 MCHC 30.4 g/dL (32.0-36.0) L 11/14/24 17:08 RDW Std Deviation 47.0 fL (36.4-46.3) H 11/14/24 17:08 RDW Coeff of Jose 18.1 % (11.5-14.5) H 11/14/24 17:08 Plt Count 294 K/uL (130-400) 11/14/24 17:08 MPV 10.1 fL (9.4-12.4) 11/14/24 17:08 Immature Gran % (Auto) 0.8 % 11/14/24 17:08 Neut % (Auto) 88.6 % 11/14/24 17:08 Lymph % (Auto) 3.5 % 11/14/24 17:08 Delta % (Auto) 6.6 % 11/14/24 17:08 Eos % (Auto) 0.3 % 11/14/24 17:08 Baso % (Auto) 0.2 % 11/14/24 17:08 Neut # (Auto) 13.19 K/uL (1.40-6.50) H 11/14/24 17:08 Lymph # (Auto) 0.52 K/uL (1.20-3.40) L 11/14/24 17:08 Delta # (Auto) 0.98 K/uL (0.11-0.59) H 11/14/24 17:08 Eos # (Auto) 0.05 K/uL (0.00-0.50) 11/14/24 17:08 Baso # (Auto) 0.03 K/uL (0.00-0.20) 11/14/24 17:08 Immature Gran # (Auto) 0.12 K/uL (0.01-0.20) 11/14/24 17:08 PT 14.7 Seconds (9.0-12.0) H 11/14/24 17:08 INR 1.4 (0.9-1.1) H 11/14/24 17:08 APTT 41 Seconds (21-31) H 11/14/24 17:08 PTT Ratio 1.5 11/14/24 17:08 Sodium 130 mmol/L (136-145) L 11/14/24 17:08 Potassium 4.0 mmol/L (3.5-5.1) 11/14/24 17:08 Chloride 94 mmol/L (98-107) L 11/14/24 17:08 Carbon Dioxide 28 mmol/L (21-32) 11/14/24 17:08 Anion Gap 8 (3-11) 11/14/24 17:08 BUN 49 mg/dl (6-23) H 11/14/24 17:08 Creatinine 1.95 mg/dl (0.6-1.4) H 11/14/24 17:08 Est Cr Clr Drug Dosing Not Reportable 11/14/24 17:08 eGFR 36.78 11/14/24 17:08 BUN/Creatinine Ratio 25.1 (10-20) H 11/14/24 17:08 Glucose 241 mg/dl (70-99(Fasting)) H 11/14/24 17:08 Lactate 1.8 mmol/L (0.4-2.0) 11/14/24 18:33 Calcium 9.4 mg/dl (8.6-10.3) 11/14/24 17:08 Magnesium 1.9 mg/dl (1.7-2.4) 11/14/24 17:08 Total Bilirubin 0.8 mg/dl (0.2-1.0) 11/14/24 17:08 AST 19 U/L (13-39) 11/14/24 17:08 ALT 24 U/L (7-52) 11/14/24 17:08 Alkaline Phosphatase 117 U/L (34-104) H 11/14/24 17:08 Troponin I High Sens 39.1 pg/ml (0-20) H 11/14/24 17:08 Total Protein 7.1 gm/dl (6.0-8.3) 11/14/24 17:08 Albumin 3.6 gm/dl (3.4-5.0) 11/14/24 17:08 Globulin 3.5 gm/dl (2.5-4.0) 11/14/24 17:08 Albumin/Globulin Ratio 1.0 (0.9-2) 11/14/24 17:08 Urine Color Yellow 11/14/24 16:50 Urine Appearance Turbid (Clear) A 11/14/24 16:50 Urine pH 5.5 (4.5-7.5) 11/14/24 16:50 Ur Specific [place] 1.015 (1.000-1.030) 11/14/24 16:50 Urine Protein 1+ (Negative) H 11/14/24 16:50 Urine Glucose (UA) Negative (Negative) 11/14/24 16:50 Urine Ketones Negative (Negative) 11/14/24 16:50 Urine Blood 3+ (Negative) H 11/14/24 16:50 Urine Nitrite Negative (Negative) 11/14/24 16:50 Urine Bilirubin Negative (Negative) 11/14/24 16:50 Urine Urobilinogen Negative (Negative) 11/14/24 16:50 Ur Leukocyte Esterase 3+ (Negative) H 11/14/24 16:50 Urine WBC (Auto) >50 /hpf (0-5) H 11/14/24 16:50 Urine RBC (Auto) >20 /hpf (0-2) H 11/14/24 16:50 U Hyaline Cast (Auto) 6-10 /lpf (0-2) H 11/14/24 16:50 U Epithel Cells (Auto) 0-2 /hpf (0-2) 11/14/24 16:50 Urine Bacteria (Auto) 4+ (None Seen) H 11/14/24 16:50 Stl C. cayetanensis PCR Not Detected (NotDetected) 11/14/24 19:41 Stool Rotavirus A PCR Not Detected (NotDetected) 11/14/24 19:41 Stl Adenov F /41 PCR Not Detected (NotDetected) 11/14/24 19:41 Stool Astrovirus (PCR) Not Detected (NotDetected) 11/14/24 19:41 Stool Campylobacter PCR Not Detected (NotDetected) 11/14/24 19:41 Stool Cryptosporidium PCR Not Detected (NotDetected) 11/14/24 19:41 Stl E.coli Shiga Tox PCR Not Detected (NotDetected) 11/14/24 19:41 Stl Enterotoxigenic E PCR Not Detected (NotDetected) 11/14/24 19:41 Stool EPEC (PCR) Not Detected (NotDetected) 11/14/24 19:41 Stool EAEC (PCR) Not Detected (NotDetected) 11/14/24 19:41 Stl E. histolytica PCR Not Detected (NotDetected) 11/14/24 19:41 Stool Giardia Lamblia PCR Not Detected (NotDetected) 11/14/24 19:41 Stool Salmonella PCR Not Detected (NotDetected) 11/14/24 19:41 Stool Sapovirus (PCR) Not Detected (NotDetected) 11/14/24 19:41 Stl P. shigelloides PCR Not Detected (NotDetected) 11/14/24 19:41 Stl Shigella/EIEC PCR Not Detected (NotDetected) 11/14/24 19:41 St Y.enterocolitica PCR Not Detected (NotDetected) 11/14/24 19:41 Stool Vibrio (PCR) Not Detected (NotDetected) 11/14/24 19:41 Stl Vibrio cholerae PCR Not Detected (NotDetected) 11/14/24 19:41 Stl Norovirus GI/GII PCR Not Detected (NotDetected) 11/14/24 19:41 Adenovirus (PCR) Not Detected (NotDetected) 11/14/24 17:08 B. pertussis DNA (PCR) Not Detected (NotDetected) 11/14/24 17:08 B.parapertussis DNA PCR Not Detected (NotDetected) 11/14/24 17:08 C. pneumoniae DNA (PCR) Not Detected (NotDetected) 11/14/24 17:08 Coronavirus OC43 (PCR) Not Detected (NotDetected) 11/14/24 17:08 Coronavirus HKU1 (PCR) Not Detected (NotDetected) 11/14/24 17:08 Coronavirus 229E (PCR) Not Detected (NotDetected) 11/14/24 17:08 SARS-CoV-2 (PCR) Not Detected (NotDetected) 11/14/24 17:08 Coronavirus NL63 (PCR) Not Detected (NotDetected) 11/14/24 17:08 Human Metapneumovir PCR Not Detected (NotDetected) 11/14/24 17:08 Influenza Type A (PCR) Not Detected (NotDetected) 11/14/24 17:08 Influenza Type B (PCR) Not Detected (NotDetected) 11/14/24 17:08 M. pneumoniae (PCR) Not Detected (NotDetected) 11/14/24 17:08 Parainfluenza 1 (PCR) Not Detected (NotDetected) 11/14/24 17:08 Parainfluenza 2 (PCR) Not Detected (NotDetected) 11/14/24 17:08 Parainfluenza 3 (PCR) Not Detected (NotDetected) 11/14/24 17:08 Parainfluenza 4 (PCR) Not Detected (NotDetected) 11/14/24 17:08 RSV (PCR) Not Detected (NotDetected) 11/14/24 17:08 Entero/Rhino (PCR) Not Detected (NotDetected) 11/14/24 17:08 Chest x-ray: . There is a pacing device on the left with a lead running to the right side of the heart. The cardiac silhouette is borderline enlarged. 2. Soft tissue artifact from large body habitus. There is mild vascular congestion without overt edema or acute focal infiltrate. CT abdomen pelvis 1. The appendix is normal. Bowel loops are nondilated. There is diverticulosis throughout the colon without signs of acute diverticulitis per no acute inflammatory changes are seen involving the bowel. 2. Slight hazy edema in the pelvis surrounding the decompressed urinary bladder. There is slight urinary bladder wall thickening. Consider cystitis. 3. There are 2 right and 3 left nonobstructive 2-3 mm calyceal calculi within the kidneys. No hydronephrosis or ureterolithiasis is identified. Diagnostic Findings EKG as per my interpretation :Rate 95, A-fib, LAD, LAFB, LBBB, PVCs Code Status & VTE Plan VTE Prophylaxis Plan VTE Prophylaxis will be ordered: Yes
[2024-11-14] MEDS: metroNIDAZOLE 500 MG/100 ML BAG IV STA (22:31)
[2024-11-14] MEDS: 4.5GM X1 IV STA (22:32)
--- NOTE | 2024-11-14 22:53 | XRay Report ---
Exam(s): XR CXR 1 VIEW EXAM: XR Chest, 1 View CLINICAL HISTORY: Reason for exam: hyponatremia. TECHNIQUE: Frontal view of the chest. COMPARISON: November 06, 2024 FINDINGS: Lungs: Soft tissue artifact from large body habitus. There is mild vascular congestion without overt edema or acute focal infiltrate. Pleural space: Unremarkable. No pneumothorax. Heart: Unremarkable. No cardiomegaly. Mediastinum: Unremarkable. Normal mediastinal contour. Bones/joints: Unremarkable. No acute fracture. Tubes, lines and devices: There is a pacing device on the left with a lead running to the right side of the heart. The cardiac silhouette is borderline enlarged. Upper abdomen: There is no pneumoperitoneum under the diaphragm. IMPRESSION: 1. There is a pacing device on the left with a lead running to the right side of the heart. The cardiac silhouette is borderline enlarged. 2. Soft tissue artifact from large body habitus. There is mild vascular congestion without overt edema or acute focal infiltrate. Electronically signed by: Dada Amaya MD 11/14/24 22:51 PM
[2024-11-14 23:05] LABS: Hematocrit (blood only) 38.6 % (42.0-52.0); Hemoglobin 11.9 g/dl (14.0-18.0)
[2024-11-14] MEDS ORDERED: GLUCOSE 10 TAB/TUBE PO PRN (23:17)
[2024-11-14] MEDS ORDERED: GLUCAGON FOR INJ 1 MG VIAL SQ PRN (23:17)
[2024-11-14] MEDS ORDERED: GLUCOSE 40% GEL 15 GM TUBE PO PRN (23:17)
[2024-11-14] MEDS ORDERED: CARBOHYDRATES FOR HYPOGLYCEMIA PO PRN (23:17)
[2024-11-14] MEDS ORDERED: DEXTROSE 50% 50 ML SYRINGE IV PRN (23:17)
[2024-11-14] MEDS: TIMOLOL MALEATE 0.5% OP SOLN 5 ML BTL OPR SCH (23:38)
[2024-11-14] MEDS: LATANOPROST 0.005% OP SOLN 2.5 ML BTL OPB SCH (23:38)
[2024-11-14] MEDS: BRIMONIDINE TARTRATE 0.2% 5ML OPR SCH (23:38)
[2024-11-14] MEDS: INSULIN ASPART PER UNIT CHARGE SC SCH (23:46)
[2024-11-14] MEDS: ALBUMIN 25% 25 GM/100 ML VIAL IV ONE (23:57)
[2024-11-15] MEDS: BENZONATATE 100 MG CAPSULE PO PRN (00:47)
--- NOTE | 2024-11-15 01:00 | Emergency Department Note ---
History of Present Illness General Chief Complaint: Referred by Doctor Stated Complaint: FATIGUE, REF BY CARDIO Time Seen by Provider: 11/14/24 17:19 History of Present Illness Provider Complaint: + abnormal lab Returns today for: + called because of abnormal lab/test Description of abnormal result: Increased kidney function white blood cell count Associated symptoms: + shortness of breath; no fever, no chest pain, no nausea or no abdominal pain Home Medications Medication Instructions Recorded Confirmed Type aspirin 81 mg tablet,delayed 81 mg PO QAM 01/05/21 11/14/24 History release coQ10 (ubiquinol) 100 mg capsule 100 mg PO QAM 01/05/21 11/14/24 History multivitamin 1 tab PO QAM 01/05/21 11/14/24 History omega 1-zxr-lxt-fish oil 1,200 mg 1 cap PO HS 01/05/21 11/14/24 History (144 mg-216 mg) capsule (Fish Oil) cholecalciferol (vitamin D3) 50 50 mcg PO QAM 05/15/21 11/14/24 History mcg (2,000 unit) tablet (Vitamin D3) latanoprost 0.005 % eye drops 1 drp OPB HS 05/15/21 11/14/24 History metformin 500 mg tablet 500 mg PO BIDM 05/15/21 11/14/24 History omeprazole 20 mg capsule,delayed 20 mg PO QAM 05/15/21 11/14/24 History release brimonidine 0.2 %-timolol 0.5 % 1 drp OPR BID 12/22/22 11/14/24 History eye drops rivaroxaban 20 mg tablet (Xarelto) 20 mg PO QDD 12/22/22 11/14/24 History benzonatate 100 mg capsule 100 mg PO TID PRN Cough 10/16/24 11/14/24 History ciclopirox 8 % topical solution 1 applic topical HS 10/16/24 11/14/24 History evolocumab 140 mg/mL subcutaneous 140 mg subcut .EVERY 14 DAYS 10/16/24 11/14/24 History pen injector (Halima Cooper) semaglutide 2 mg/dose (8 mg/3 mL) 2 mg subcut WK 10/16/24 11/14/24 History subcutaneous pen injector (Ozempic) digoxin 125 mcg (0.125 mg) tablet 0.125 mg PO DAILY@1600 #30 tabs 11/10/24 11/14/24 Rx (Digitek) metoprolol succinate 50 mg 150 mg (3 x 50 mg) PO BID #180 tabs 11/10/24 11/14/24 Rx tablet,extended release 24 hr Allergies Allergy/AdvReac Type Severity Reaction Status Date / Time [id number] Reductase AdvReac Intermediate Joint Pain Verified 11/14/24 19:23 Inhibitor Past Med/Surg History Problem List (Updated 11/15/24 @ 01:19 by Chester Bradshaw MD) FRED (acute kidney injury) (Acute) Acute UTI (Acute) Severe sepsis Acute systolic CHF (congestive heart failure) JOSHI (dyspnea on exertion) (Acute) Fluid overload (Acute) Elevated troponin (Acute) Mitral regurgitation Hyperthyroidism (Acute) Elevated brain natriuretic peptide (BNP) level (Acute) Elevated troponin (Acute) Atrial fibrillation with rapid ventricular response (Acute) Encounter for pre-operative examination Atrial fibrillation with RVR (Acute) Cardiac defibrillator in place (Chronic) Morbid obesity (Chronic) BMI 41.8 Chronic systolic congestive heart failure, NYHA class 2 (Chronic) Hyperlipidemia (Chronic) CAD (coronary artery disease) (Chronic) HTN (hypertension) (Chronic) Medical History Osteoarthritis Diabetes mellitus, type 2 On anticoagulant therapy xarelto daily Glaucoma SARS-CoV-2 positive hx of x2--04/2021 and 08/2021--no symptoms now Atrial fibrillation on xarelton/metoprolol--follows with Dr. Aldridge Acute HFrEF (heart failure with reduced ejection fraction) SOB (shortness of breath) JOSE DE JESUS (obstructive sleep apnea) cpap NICM (nonischemic cardiomyopathy) Surgical History Status post hardware removal History of open reduction and internal fixation (ORIF) procedure left ankle fx repair--hardware removed History of removal of cyst off knuckle History of prostate biopsy benign History of colonoscopy History of wisdom tooth extraction History of cardiac cath 2012 @ [place], [place]--no stents S/P ICD (internal cardiac defibrillator) procedure placed 04/26/19 Dr. Guevara @ [facility]--medtronic History of total right hip arthroplasty History of total left hip arthroplasty Family History Mother Stroke Father Coronary heart disease Other No family history of adverse response to anesthesia Social History Smoking Status: Former smoker Second Hand Exposure: No; Do You Dip or Chew Tobacco: No; Tobacco Cessation Education Requested by Patient: No Hx Alcohol Use: No Hx Substance Use: No Preferred Language: Citizen Of [place] Communication Ability: Effective Steel Erecting Pusher Required: No Beliefs That Will Affect Care: None Current Living Situation: Spouse Other Information That Helps Us Care for You: No Feels Safe at Home: Yes Safety Concerns: Feels Safe At This Time Assistive Devices: Cane and Glasses Physical Exam 2 Vital Signs: Vital Signs - 24 hr 11/14/24 16:37 11/14/24 18:23 11/14/24 18:35 Temperature 36.9 C Temperature Source Temporal Artery Sc an Pulse Rate 106 H 111 H Pulse Rate [Apical ] 91 H Pulse Rhythm Regular Pulse Strength Normal Respiratory Rate 20 18 Respiratory Effort / Characteristics Non-Labored Sponta neous Non-Labored Respiratory Depth Normal Normal Blood Pressure 102/55 L Blood Pressure [Ri ght Arm] 105/80 Blood Pressure Beth n 70 Blood Pressure Beth n [Right Arm] 88 Blood Pressure Pos ition Sitting Pulse Oximetry 97 95 Oxygen Delivery Me thod Room Air Room Air Sepsis Recent Feve r Within 48 Hours No Sepsis New/Unexpla ined Change in Men merritt Status N/A Sepsis Action Take n by Nursing No Action Required 11/14/24 19:00 11/14/24 21:00 Temperature Temperature Source Pulse Rate Pulse Rate [Apical ] 104 H 101 H Pulse Rhythm Pulse Strength Respiratory Rate 20 20 Respiratory Effort / Characteristics Respiratory Depth Blood Pressure Blood Pressure [Ri ght Arm] 118/85 110/74 Blood Pressure Beth n Blood Pressure Beth n [Right Arm] 96 86 Blood Pressure Pos ition Pulse Oximetry 96 96 Oxygen Delivery Me thod Room Air Room Air Sepsis Recent Feve r Within 48 Hours Sepsis New/Unexpla ined Change in Men merritt Status Sepsis Action Take n by Nursing Physical Exam: Physical Exam GENERAL: oriented to person, place, and time. appears well-developed and well- nourished. HENT: Exam performed. - Head: Normocephalic and atraumatic. EYES: Conjunctivae and EOM are normal. Right eye exhibits no discharge. Left eye exhibits no discharge. No scleral icterus. NECK: Normal range of motion. Neck supple. No JVD present. CV: Normal rate, irregular rhythm, normal heart sounds and intact distal pulses. There is no peripheral edema. Palpable radial pulses bue. PULM/CHEST: Effort normal and breath sounds normal. No respiratory distress. No stridor. no wheezes. no rales. ABD: The abdomen is soft. There is no tenderness. NEURO: Motor and sensation grossly intact. SKIN: Skin is warm and dry. He is not diaphoretic. PSYCH: normal mood and affect. Behavior is normal. Judgment and thought content normal. Course Course 171: The patient was evaluated in room C6. A complete history and physical exam was performed Cardiac monitoring: An order was placed for continuous cardiac monitoring. The monitor shows a rate of 90 with atrial fibrilation rhythm interpreted by dc 2125: Vital signs stable. Labs show white blood cell count 14.89 hemoglobin 11.7. Creatinine 1.95 up from 1.264 days ago. High-sensitivity troponin 39.1. 8 days ago was 56.9. Urinalysis is concerning for infection. CT abdomen pelvis unremarkable. Patient treated with Rocephin and will be admitted to the hospitalist team. Administered Medications Benzonatate (Benzonatate 100 Mg Capsule) 100 mg PO TID PRN PRN Reason: Cough Stop: 12/14/24 22:12 Last Admin: 11/15/24 00:47 Dose: 100 mg Documented By: DM Brimonidine Tartrate (Brimonidine Tartrate 0.2% 5ml) 1 drops OPR BID MEJIA Stop: 12/14/24 22:14 Last Admin: 11/14/24 23:38 Dose: 1 drops Documented By: DM Insulin Aspart (Insulin Aspart Per Unit Charge) 0 units SC ACHS MEJIA Stop: 12/14/24 23:16 Last Admin: 11/14/24 23:46 Dose: 3 units Documented By: DM Co-signed By: CHRISTINE Latanoprost (Latanoprost 0.005% Op Soln 2.5 Ml Btl) 1 drops OPB HS MEJIA Stop: 12/14/24 22:14 Last Admin: 11/14/24 23:38 Dose: 1 drops Documented By: DARREL Timolol Maleate (Timolol Maleate 0.5% Op Soln 5 Ml Btl) 1 drops OPR BID MEJIA Stop: 12/14/24 22:14 Last Admin: 11/14/24 23:38 Dose: 1 drops Documented By: DARREL Discontinued Medications Ceftriaxone Sodium (Rocephin) 2,000 mg in 50 mls @ 100 mls/hr IV NOW STA Stop: 11/14/24 19:57 Last Infusion: 11/14/24 20:18 Dose: Infused Documented By: Admin: 11/14/24 19:38 Dose: 100 mls/hr Documented By: PHYLLIS Magnesium Sulfate/Dextrose (Magnesium Sulfate / D5w) 1 gm in 100 mls @ 50 mls/hr IV ONE ONE Stop: 11/14/24 23:28 Last Admin: 11/14/24 22:13 Dose: 50 mls/hr Documented By: PHYLLIS Albumin Human (Albumin 25%) 25 gm in 100 mls @ 50 mls/hr IV ONE ONE Stop: 11/15/24 00:03 Last Admin: 11/14/24 23:57 Dose: 50 mls/hr Documented By: DARREL Metronidazole (Flagyl) 500 mg in 100 mls @ 100 mls/hr IV NOW STA; Protocol Stop: 11/14/24 23:06 Last Admin: 11/14/24 22:31 Dose: 100 mls/hr Documented By: PHYLLIS Piperacillin Sod/Tazobactam Sod (Zosyn) 4.5 gm in 100 mls @ 200 mls/hr IV NOW STA; Protocol Stop: 11/14/24 22:48 Last Infusion: 11/15/24 00:00 Dose: Infused Documented By: Admin: 11/14/24 22:32 Dose: 200 mls/hr Documented By: PHYLLIS Medical Decision Making Laboratory Data Attestation: I reviewed the patient's lab results. 11/14/24 22:43 11/14/24 17:08 Lab Results 11/14/24 11/14/24 11/14/24 Range/Units 16:50 17:08 18:33 WBC 14.89 H (4.8-10.8) K/ul RBC 5.20 (4.70-6.10) M/uL Hgb 11.7 L (14.0-18.0) g/dl Hct 38.5 L (42.0-52.0) % MCV 74.0 L (80.0-100.0) fL MCH 22.5 L (25.0-34.0) pg MCHC 30.4 L (32.0-36.0) g/dL RDW Std Deviation 47.0 H (36.4-46.3) fL RDW Coeff of Jose 18.1 H (11.5-14.5) % Plt Count 294 (130-400) K/uL MPV 10.1 (9.4-12.4) fL Immature Gran % (Auto) 0.8 % Neut % (Auto) 88.6 % Lymph % (Auto) 3.5 % [place] % (Auto) 6.6 % Eos % (Auto) 0.3 % Baso % (Auto) 0.2 % Neut # (Auto) 13.19 H (1.40-6.50) K/uL Lymph # (Auto) 0.52 L (1.20-3.40) K/uL [place] # (Auto) 0.98 H (0.11-0.59) K/uL Eos # (Auto) 0.05 (0.00-0.50) K/uL Baso # (Auto) 0.03 (0.00-0.20) K/uL Immature Gran # (Auto) 0.12 (0.01-0.20) K/uL PT 14.7 H (9.0-12.0) Seconds INR 1.4 H (0.9-1.1) APTT 41 H (21-31) Seconds PTT Ratio 1.5 Sodium 130 L (136-145) mmol/L Potassium 4.0 (3.5-5.1) mmol/L Chloride 94 L (98-107) mmol/L Carbon Dioxide 28 (21-32) mmol/L Anion Gap 8 (3-11) BUN 49 H (6-23) mg/dl Creatinine 1.95 H (0.6-1.4) mg/dl Est Cr Clr Drug Dosing Not Reportable eGFR 36.78 BUN/Creatinine Ratio 25.1 H (10-20) Glucose 241 H (70-99(Fasting)) mg/dl Lactate 1.8 (0.4-2.0) mmol/L Calcium 9.4 (8.6-10.3) mg/dl Magnesium 1.9 (1.7-2.4) mg/dl Total Bilirubin 0.8 (0.2-1.0) mg/dl AST 19 (13-39) U/L ALT 24 (7-52) U/L Alkaline Phosphatase 117 H (34-104) U/L Troponin I High Sens 39.1 H (0-20) pg/ml Total Protein 7.1 (6.0-8.3) gm/dl Albumin 3.6 (3.4-5.0) gm/dl Globulin 3.5 (2.5-4.0) gm/dl Albumin/Globulin Ratio 1.0 (0.9-2) Urine Color Yellow Urine Appearance Turbid A (Clear) Urine pH 5.5 (4.5-7.5) Ur Specific [place] 1.015 (1.000-1.030) Urine Protein 1+ H (Negative) Urine Glucose (UA) Negative (Negative) Urine Ketones Negative (Negative) Urine Blood 3+ H (Negative) Urine Nitrite Negative (Negative) Urine Bilirubin Negative (Negative) Urine Urobilinogen Negative (Negative) Ur Leukocyte Esterase 3+ H (Negative) Urine WBC (Auto) >50 H (0-5) /hpf Urine RBC (Auto) >20 H (0-2) /hpf U Hyaline Cast (Auto) 6-10 H (0-2) /lpf U Epithel Cells (Auto) 0-2 (0-2) /hpf Urine Bacteria (Auto) 4+ H (None Seen) Stl C. cayetanensis PCR (NotDetected) Stool Rotavirus A PCR (NotDetected) Stl Adenov F 40/41 PCR (NotDetected) Stool Astrovirus (PCR) (NotDetected) Stool Campylobacter PCR (NotDetected) Stool Cryptosporidium PCR (NotDetected) Stl E.coli Shiga Tox PCR (NotDetected) Stl Enterotoxigenic E PCR (NotDetected) Stool EPEC (PCR) (NotDetected) Stool EAEC (PCR) (NotDetected) Stl E. histolytica PCR (NotDetected) Stool Giardia Lamblia PCR (NotDetected) Stool Salmonella PCR (NotDetected) Stool Sapovirus (PCR) (NotDetected) Stl P. shigelloides PCR (NotDetected) Stl Shigella/EIEC PCR (NotDetected) St Y.enterocolitica PCR (NotDetected) Stool Vibrio (PCR) (NotDetected) Stl Vibrio cholerae PCR (NotDetected) Stl Norovirus GI/GII PCR (NotDetected) Adenovirus (PCR) Not Detected (NotDetected) B. pertussis DNA (PCR) Not Detected (NotDetected) B.parapertussis DNA PCR Not Detected (NotDetected) C. pneumoniae DNA (PCR) Not Detected (NotDetected) Coronavirus OC43 (PCR) Not Detected (NotDetected) Coronavirus HKU1 (PCR) Not Detected (NotDetected) Coronavirus 229E (PCR) Not Detected (NotDetected) SARS-CoV-2 (PCR) Not Detected (NotDetected) Coronavirus NL63 (PCR) Not Detected (NotDetected) Human Metapneumovir PCR Not Detected (NotDetected) Influenza Type A (PCR) Not Detected (NotDetected) Influenza Type B (PCR) Not Detected (NotDetected) M. pneumoniae (PCR) Not Detected (NotDetected) Parainfluenza 1 (PCR) Not Detected (NotDetected) Parainfluenza 2 (PCR) Not Detected (NotDetected) Parainfluenza 3 (PCR) Not Detected (NotDetected) Parainfluenza 4 (PCR) Not Detected (NotDetected) RSV (PCR) Not Detected (NotDetected) Entero/Rhino (PCR) Not Detected (NotDetected) 11/14/24 Range/Units 19:41 WBC (4.8-10.8) K/ul RBC (4.70-6.10) M/uL Hgb (14.0-18.0) g/dl Hct (42.0-52.0) % MCV (80.0-100.0) fL MCH (25.0-34.0) pg MCHC (32.0-36.0) g/dL RDW Std Deviation (36.4-46.3) fL RDW Coeff of Jose (11.5-14.5) % Plt Count (130-400) K/uL MPV (9.4-12.4) fL Immature Gran % (Auto) % Neut % (Auto) % Lymph % (Auto) % [place] % (Auto) % Eos % (Auto) % Baso % (Auto) % Neut # (Auto) (1.40-6.50) K/uL Lymph # (Auto) (1.20-3.40) K/uL [place] # (Auto) (0.11-0.59) K/uL Eos # (Auto) (0.00-0.50) K/uL Baso # (Auto) (0.00-0.20) K/uL Immature Gran # (Auto) (0.01-0.20) K/uL PT (9.0-12.0) Seconds INR (0.9-1.1) APTT (21-31) Seconds PTT Ratio Sodium (136-145) mmol/L Potassium (3.5-5.1) mmol/L Chloride (98-107) mmol/L Carbon Dioxide (21-32) mmol/L Anion Gap (3-11) BUN (6-23) mg/dl Creatinine (0.6-1.4) mg/dl Est Cr Clr Drug Dosing eGFR BUN/Creatinine Ratio (10-20) Glucose (70-99(Fasting)) mg/dl Lactate (0.4-2.0) mmol/L Calcium (8.6-10.3) mg/dl Magnesium (1.7-2.4) mg/dl Total Bilirubin (0.2-1.0) mg/dl AST (13-39) U/L ALT (7-52) U/L Alkaline Phosphatase (34-104) U/L Troponin I High Sens (0-20) pg/ml Total Protein (6.0-8.3) gm/dl Albumin (3.4-5.0) gm/dl Globulin (2.5-4.0) gm/dl Albumin/Globulin Ratio (0.9-2) Urine Color Urine Appearance (Clear) Urine pH (4.5-7.5) Ur Specific [place] (1.000-1.030) Urine Protein (Negative) Urine Glucose (UA) (Negative) Urine Ketones (Negative) Urine Blood (Negative) Urine Nitrite (Negative) Urine Bilirubin (Negative) Urine Urobilinogen (Negative) Ur Leukocyte Esterase (Negative) Urine WBC (Auto) (0-5) /hpf Urine RBC (Auto) (0-2) /hpf U Hyaline Cast (Auto) (0-2) /lpf U Epithel Cells (Auto) (0-2) /hpf Urine Bacteria (Auto) (None Seen) Stl C. cayetanensis PCR Not Detected (NotDetected) Stool Rotavirus A PCR Not Detected (NotDetected) Stl Adenov F 40/41 PCR Not Detected (NotDetected) Stool Astrovirus (PCR) Not Detected (NotDetected) Stool Campylobacter PCR Not Detected (NotDetected) Stool Cryptosporidium PCR Not Detected (NotDetected) Stl E.coli Shiga Tox PCR Not Detected (NotDetected) Stl Enterotoxigenic E PCR Not Detected (NotDetected) Stool EPEC (PCR) Not Detected (NotDetected) Stool EAEC (PCR) Not Detected (NotDetected) Stl E. histolytica PCR Not Detected (NotDetected) Stool Giardia Lamblia PCR Not Detected (NotDetected) Stool Salmonella PCR Not Detected (NotDetected) Stool Sapovirus (PCR) Not Detected (NotDetected) Stl P. shigelloides PCR Not Detected (NotDetected) Stl Shigella/EIEC PCR Not Detected (NotDetected) St Y.enterocolitica PCR Not Detected (NotDetected) Stool Vibrio (PCR) Not Detected (NotDetected) Stl Vibrio cholerae PCR Not Detected (NotDetected) Stl Norovirus GI/GII PCR Not Detected (NotDetected) Adenovirus (PCR) (NotDetected) B. pertussis DNA (PCR) (NotDetected) B.parapertussis DNA PCR (NotDetected) C. pneumoniae DNA (PCR) (NotDetected) Coronavirus OC43 (PCR) (NotDetected) Coronavirus HKU1 (PCR) (NotDetected) Coronavirus 229E (PCR) (NotDetected) SARS-CoV-2 (PCR) (NotDetected) Coronavirus NL63 (PCR) (NotDetected) Human Metapneumovir PCR (NotDetected) Influenza Type A (PCR) (NotDetected) Influenza Type B (PCR) (NotDetected) M. pneumoniae (PCR) (NotDetected) Parainfluenza 1 (PCR) (NotDetected) Parainfluenza 2 (PCR) (NotDetected) Parainfluenza 3 (PCR) (NotDetected) Parainfluenza 4 (PCR) (NotDetected) RSV (PCR) (NotDetected) Entero/Rhino (PCR) (NotDetected) Imaging Data Radiologist's Impression: EXAM: CT Abdomen and Pelvis Without Intravenous Contrast CLINICAL HISTORY: Reason for exam: fred. TECHNIQUE: Axial computed tomography images of the abdomen and pelvis without intravenous contrast. CTDI is 26.74 mGy and DLP is 1271.98 mGy-cm. Automated exposure control was utilized for the study. A dose lowering technique was utilized adhering to the principles of ALARA. COMPARISON: No relevant prior studies available. FINDINGS: Lung bases: Unremarkable. No mass. No consolidation. ABDOMEN: Liver: Unremarkable. Gallbladder and bile ducts: Unremarkable. No calcified stones. No ductal dilation. Pancreas: Unremarkable. No ductal dilation. Spleen: Unremarkable. No splenomegaly. Adrenals: Unremarkable. No mass. Kidneys and ureters: There are 2 right and 3 left nonobstructive 2 3 mm calyceal calculi within the kidneys. No hydronephrosis or ureterolithiasis is identified. Stomach and bowel: See below. PELVIS: Appendix: The appendix is normal. Bowel loops are nondilated. There is diverticulosis throughout the colon without signs of acute diverticulitis per no acute inflammatory changes are seen involving the bowel. Bladder: See below. Reproductive: Unremarkable as visualized. ABDOMEN and PELVIS: Intraperitoneal space: Unremarkable. No free air. No significant fluid collection. Bones/joints: Metallic artifact from bilateral hip arthroplasties. No acute fracture or dislocation is seen. Mild to moderate multilevel degenerative changes throughout the spine. No acute fracture or subluxation is seen. Soft tissues: Slight hazy edema in the pelvis surrounding the decompressed urinary bladder. There is slight urinary bladder wall thickening. Vasculature: Unremarkable. No abdominal aortic aneurysm. Lymph nodes: Unremarkable. No enlarged lymph nodes. IMPRESSION: 1. The appendix is normal. Bowel loops are nondilated. There is diverticulosis throughout the colon without signs of acute diverticulitis per no acute inflammatory changes are seen involving the bowel. 2. Slight hazy edema in the pelvis surrounding the decompressed urinary bladder. There is slight urinary bladder wall thickening. Consider cystitis. 3. There are 2 right and 3 left nonobstructive 2-3 mm calyceal calculi within the kidneys. No hydronephrosis or ureterolithiasis is identified. Radiologist: Dada Amaya MD Electronically Signed: 11/14/24 21:15 Study first marked ready to read at 20:21, study last marked ready to read at 20:21, initial results transmitted at 21:15 Exam(s): XR CXR 1 VIEW EXAM: XR Chest, 1 View CLINICAL HISTORY: Reason for exam: hyponatremia. TECHNIQUE: Frontal view of the chest. COMPARISON: November 06, 2024 FINDINGS: Lungs: Soft tissue artifact from large body habitus. There is mild vascular congestion without overt edema or acute focal infiltrate. Pleural space: Unremarkable. No pneumothorax. Heart: Unremarkable. No cardiomegaly. Mediastinum: Unremarkable. Normal mediastinal contour. Bones/joints: Unremarkable. No acute fracture. Tubes, lines and devices: There is a pacing device on the left with a lead running to the right side of the heart. The cardiac silhouette is borderline enlarged. Upper abdomen: There is no pneumoperitoneum under the diaphragm. IMPRESSION: 1. There is a pacing device on the left with a lead running to the right side of the heart. The cardiac silhouette is borderline enlarged. 2. Soft tissue artifact from large body habitus. There is mild vascular congestion without overt edema or acute focal infiltrate. Electronically signed by: Dada Amaya MD 11/14/24 22:51 PM Dictated: 11/14/242250 Transcribed: 11/14/242250 ECG Data Attestation: I personally reviewed and interpreted this ECG as follows: Rate (beats per minute): 94 Rhythm: atrial fibrillation Findings: no ST depression, no ST elevation or no prolonged QT MDM Narrative 1719: The patient was evaluated in room C6. A complete history and physical exam was performed Cardiac monitoring: An order was placed for continuous cardiac monitoring. The monitor shows a rate of 90 with atrial fibrilation rhythm interpreted by me 9135: Vital signs stable. Labs show white blood cell count 14.89 hemoglobin 11.7. Creatinine 1.95 up from 1.264 days ago. High-sensitivity troponin 39.1. 8 days ago was 56.9. Urinalysis is concerning for infection. CT abdomen pelvis unremarkable. Patient treated with Rocephin and will be admitted to the hospitalist team. Impression & Plan Acute UTI, FRED (acute kidney injury) Discharge Plan Visit Data Chief Complaint: Referred by Doctor Stated Complaint: FATIGUE, REF BY CARDIO ED Provider: Chester Bradshaw Discharge Problem: Acute UTI, FRED (acute kidney injury) Patient Disposition: Admitted As Inpatient Discharge Instructions Interventions: ED Discharge Assessment Last Done: 11/14/24 23:30
[2024-11-15] MEDS: DIGOXIN 250 MCG in SYRINGE 9 ML IV STA (01:04)
[2024-11-15] MEDS: ALBUMIN 25% 25 GM/100 ML VIAL IV ONE (01:34)
[2024-11-15] MEDS: PIPERACILLIN/TAZOBACTAM 4.5 GM/100 ML BAG IV SCH (04:09)
[2024-11-15 04:50] LABS: Cdiff Toxin B Gene (2yr or >) Positive Cdiff Gene (Neg)
[2024-11-15 04:53] LABS: Cdiff Antigen Negative; Cdiff Toxin A+B Negative Cdiff Toxin (Negative)
[2024-11-15] MEDS: PANTOprazole 40 MG TAB PO SCH (07:43)
[2024-11-15] MEDS: METOPROLOL SUCC 25MG EXT REL TAB PO SCH (07:44)
[2024-11-15] MEDS: MULTIVITAMIN TAB PO SCH (07:44)
[2024-11-15] MEDS: LANTUS PER UNIT CHARGE SQ SCH (08:04)
[2024-11-15 08:11] LABS: Basophils # (auto) 0.03 K/uL (0.00-0.20); Basophils % (auto) 0.3 %; Eosinophils # (auto) 0.04 K/uL (0.00-0.50); Eosinophils % (auto) 0.4 %; Hematocrit (blood only) 32.5 % (42.0-52.0); Hemoglobin 10.3 g/dl (14.0-18.0); Immature Granulocytes # (auto) 0.06 K/uL (0.01-0.20); Immature Granulocytes % (auto) 0.6 %; Lymphocytes # (auto) 0.72 K/uL (1.20-3.40); Lymphocytes % (auto) 7.4 %; Mean Corpuscular Hgb Conc 31.7 g/dL (32.0-36.0); Mean Corpuscular Volume 72.5 fL (80.0-100.0); Mean Platelet Volume 10.4 fL (9.4-12.4); Monocytes # (auto) 1.18 K/uL (0.11-0.59); Monocytes % (auto) 12.1 %; Neutrophils # (auto) 7.69 K/uL (1.40-6.50); Neutrophils % (auto) 79.2 %; Platelet Count 272 K/uL (130-400); RDW Coefficient of Variation 17.8 % (11.5-14.5); RDW Standard Deviation 46.4 fL (36.4-46.3); Red Blood Count 4.48 M/uL (4.70-6.10); White Blood Count 9.72 K/ul (4.8-10.8)
--- OUTSIDE RECORDS SUMMARY | 2024-11-15 08:14 | External Medical Summary | Summary of Care ---
Author Name Unknown Organization [facility] Address [address] [facility] [place] [address] Phone [phone] Care Team Providers Care Echocardiologist Name Role Phone Jazmine Anguiano MD Primary Care Provider Reason for Visit * Reason Onset Date Comments Test Results 11/13/2024 Encounter Details Date Type Department Care Team (Late st Contact Info) Description 11/13/2024 Telephone Cardiology, [facility] [address] [place] [address] Justina Brower PA-C [address] [place] [address] Test Results Allergies Active Allergy Reactions Criticality Noted Date Comments Statins 10/15/2022 Joint pain documented as of this encounter (statuses as of 11/14/2024) Medications Cholecalciferol (VITAMIN D3) 2000 units Tablet [...] goal of less than 7.0% ([facility]) Use up to 4 times a day E11.9 1 Kit 01/30/20 21 Active Aspirin 81 MG Oral Tablet Delayed Release Take 1 Tablet by mouth in the morning. Active [place]-3 Fish Oil 1200 MG Oral Capsule Take 1 Cap by mouth daily. Active Brimonidine Tartrate-Timolol 0.2-0.5 % Ophthalmic Solution (Combigan) Instill 1 Drop into both eyes every evening. Active OneTouch Verio In Vitro Strip (Glucose [...] Active CPAP every night at bedtime. Active Dobjuxo-Iirtvg-Nab ll Pertussis 5-2.5-18.5 LF-MCG/0.5 Suspension Prefilled Syringe [...] bedtime. 12 g 1 10/12/19 25 Active Additional Information Patient taking differently:2 Puff InhalationPRN, Reported on 11/13/2024 Mometasone Furoate 110 MCG/ACT Inhalation Aerosol Powder Breath Activated (Asmanex)Indicatio ns:Bronchitis, complicated Inhale 1 Puff by mouth every evening. 1 Each 1 10/18/19 25 Active Metoprolol Succinate ER 100 MG [...] THE MORNING 45 Tablet 10/28/19 25 Active Torsemide 20 MG Oral Tablet (Demadex) Take 1 Tablet by mouth in the morning. 11/11/19 25 Active Digoxin 125 MCG Oral Tablet (Lanoxin) Take 1 Tablet by mouth every evening. 11/11/19 25 Active Metoprolol Succinate ER 50 MG Oral Tablet Extended Release 24 Hour (toPROL XL)Indications:Par oxysmal atrial fibrillation (HCC) Take 1 Tablet by mouth every evening. Take along with 100mg tablet for a total of 150mg at night 11/14/19 25 Active documented as of this encounter (statuses as of 11/14/2024) Active Problems Problem Noted Date Diagnosed Date Persistent atrial fibrillation 11/13/2024 Colon polyp 10/31/2024 Overview (10/31/2024): 2022. GI [...] cardiomyopathy 10/03/2018 Coronary artery disease invo lving [place] coronary artery of [place] heart without angina pectoris 10/03/2018 documented as of this encounter (statuses as of 11/14/2024) Resolved Problems Problem Noted Date Diagnosed Date Resolved Date Obesity, morbid (more than 1 00 lbs over ideal weight or BMI > 40) 05/27/2021 12/06/2023 Body mass index (BMI) of 40. 0 to 44.9 in adult 10/30/2019 06/05/2021 Overview: Per Obesity protocol documented as of this encounter (statuses as of 11/14/2024) Immunizations Name Administration Dates Next Due COVID-19 mRNA, LNP-s, No Pre serve, 2-Dose Series ([place]) 11/09/2020,10/19/2020 COVID-19, MRNA-LNP, PF, 50 M CG/0.5 [...] encounter Miscellaneous Notes * Telephone Encounter - Arlen Lira LPN - 11/13/2024 3:14 PM EDT Yumihartrev message sent * Telephone Encounter - Arlen Lira LPN - 11/13/2024 3:10 PM EDT ----- Message from Justina Brower sent at 11/13/2024 3:02 PM EDT ----- Worsening kidney function noted. Creatinine was 1.26 when he left the hospital now 2.5. Hold torsemide and spironolactone. Hold Entresto for now. Repeat BMP in 2 days Low salt diet. Compression stockings for LE edema. documented in this encounter Plan of Treatment Upcoming Encounters Date Type Department Care Team (Late st Contact Info) Description 11/16/2024 3:00 PM EDT Office Visit Family Practice [facility] [address] [place] [phone] Melissa Kelley CRNP [address] [place] [phone] 11/30/2024 10:00 AM EDT Office Visit Cardiology, [facility] [address] [place] [phone] Michael Villegas DO [address] [place] [address] 12/26/2024 10:00 AM EDT Office Visit Pharmacy, [facility] [address] [place] [address] [facility] [address] [place] [address] 05/01/2025 3:00 PM EDT Office Visit Cardiology, [facility] [address] [place] [phone] Justina Brower PA-C [address] [place] [address] Scheduled Orders Name Type Priority Associated Diagnoses Orde r Schedule BASIC METABOLIC PANEL Lab Routine Kidney function abnormal Expected: 11/15/2024 (Approximate), Expires: 11/13/2025 Health Maintenance Due Date Last Done Comments Hepatitis C Screening 01/07/1974 Cologuard 01/07/2001 Fecal Occult Blood Test 01/07/2001 Sigmoidoscopy 01/07/2001 Depression Screening 08/26/2023 08/26/2022 COVID-19 Vaccine ( season) 2024 04/29/2024, 05/29/2023, 05/04/2022, Additional history exists Pneumococcal Vaccine: 50+ Years (3 of 3 - PCV20 or PCV21) 10/17/2024 10/17/2019, 07/19/2018 Diabetic Foot Exam 12/05/2024 12/06/2023, 07/11/2021 Diabetic Eye Exam 04/11/2025 09/08/2022, 09/16/2021 Postponed from 09/08/2023 (Acute Illness) HbA1c 05/16/2025 11/13/2024, 03/0 10/2024, 01/07/2024, Additional history exists Albumin/Creatinine Ratio 11/13/2025 025, 10/11/2023, 01/09/2022, Additional history exists GFR 11/13/2025 11/13/2024, 03/0 10/2024, 10/17/2024, Additional history exists Colonoscopy 01/22/2033 01/22/2023, 10/25/2017 [...] as of this encounter Visit Diagnoses Diagnosis Kidney function abnormal- Primary Unspecified disorder of kidney and ureter documented in this encounter Care Teams Echocardiologist Relationship Specialty Start Date End Date Jazmine Anguiano MD [address] [place] [address] PCP - General Internal Medicine 12/06/23 documented as of this encounter
--- OUTSIDE RECORDS SUMMARY | 2024-11-15 08:15 | External Medical Summary ---
Author Name Unknown Address Unknown Organization [id number]:[facility] - [address] [place] [address] Laboratory Report Ordering Provider Test Date Status BURKE VIVEROS 11/13/2024 11:18:30 Final Observation Date Value Abnormality Reference (Units ) Status SYNC LEUKOCYTES IN BLOOD BY AUTOMATED COUNT 11/13/2024 11:18:30 25.14 Above high normal 4.00-10.80 (K/uL) Final Neutrophils/100 leukocytes in Blood by Manual count 11/13/2024 11:18:30 83.0 Above high normal 40.0-75.0 (%) Final Lymphocytes/100 leukocytes in Blood by Manual count 11/13/2024 11:18:30 5.0 Below low normal 18.0-42.0 (%) Final Monocytes/100 leukocytes in Blood by Manual count 11/13/2024 11:18:30 8.0 1.0-11.0 (%) Final Metamyelocytes/100 leukocytes in Blood by Manual count 11/13/2024 11:18:30 4.0 Above high normal <=0.0 (%) Final Neutrophils [#/volume] in Blood by Manual count 11/13/2024 11:18:30 20.87 Above high normal 1.80-7.70 (K/uL) Final Lymphocytes [#/volume] in Blood by Manual count 11/13/2024 11:18:30 1.26 1.00-4.80 (K/uL) Final Monocytes [#/volume] in Blood by Manual count 11/13/2024 11:18:30 2.01 Above high normal 0.00-1.10 (K/uL) Final Metamyelocytes [#/volume] in Blood by Manual count 11/13/2024 11:18:30 1.01 Above high normal <=0.00 (K/uL) Final Nucleated erythrocytes/100 leukocytes [Ratio] in Blood by Automated count 11/13/2024 11:18:30 Final Performing Location [facility] 0 - [address] [place] [address]
--- OUTSIDE RECORDS SUMMARY | 2024-11-15 08:15 | External Medical Summary ---
Author Name Unknown Address Unknown Organization [id number]:[facility] - [address] [place] [address] Laboratory Report Ordering Provider Test Date Status BURKE VIVEROS 11/13/2024 11:18:30 Final Observation Date Value Abnormality Reference (Units ) Status Magnesium 11/13/2024 11:18:30 1.9 1.5-2.6 (m g/dL) Final Performing Location [facility] - [address] [place] [address]
--- OUTSIDE RECORDS SUMMARY | 2024-11-15 08:15 | External Medical Summary ---
Author Name Unknown Address Unknown Organization [id number]:[facility]ATORY [facility] - [address] [place] [address] Laboratory Report Ordering Provider Test Date Status ELYSSA SHAY 11/13/2024 11:22:11 Final Normal: <30 mg/g creatinine< br/>High: 30-300 mg/g creatinine
Very High: >300 mg/g creatinine
Nephrotic: >2200 mg/g creatinine Observation Date Value Abnormality Reference (Units ) Status Albumin, Urine 11/13/2024 11:22:11 30.00 (mg/dL) Final Creatinine, Urine 11/13/2024 11:22:11 141 (mg/dL) Final Albumin/Creatinine [Mass Ratio] in Urine 11/13/2024 11:22:11 213 Above high normal <30 (mg/g Creat) Final Performing Location LABORATORY [facility] - [address] [place] [address]
--- OUTSIDE RECORDS SUMMARY | 2024-11-15 08:15 | External Medical Summary ---
Author Name Unknown Address Unknown Organization [id number]:[facility] [address] [place] [address] Laboratory Report Ordering Provider Test Date Status GABRIEL CAMPOVERDE 11/13/2024 11:18:30 Final Observation Date Value Abnormality Reference (Units ) Status Triglyceride 11/13/2024 11:18:30 100 <=174 ( mg/dL) Final Triglyceride Reference Range s (mg/dL):
<150 Acceptable
150-174 Borderline high
175-499 High
>=500 Very high Cholesterol 11/13/2024 11:18:30 58 <200 (mg /dL) Final Total Cholesterol Reference Ranges (mg/dL):
<200 Desirable
200-239 Borderline high
>=240 High HDL 11/13/2024 11:18:30 30 Below low normal >39 (mg/dL) Final HDL Cholesterol Reference Ra nges (mg/dL):
>=60 High (Desirable)
<50 Low (Undesirable) For Females
<40 Low (Undesirable) For Males NON-HDL CHOLESTEROL 11/13/2024 11:18:30 28 <=159 (mg/dL) Final Non-HDL Cholesterol Referenc e Range (mg/dL):
<100 Target level for high risk ASCVD patient
<130 Optimal for general population
130-159 Near optimal for general population
160-189 Borderline High
190-219 High
>=220 Very High LDL, (calculated) 11/13/2024 11:18:30 8 <= 129 (mg/dL) Final LDL Cholesterol Reference Ra nges (mg/dL):
<70 Target level for high risk ASCVD patient
<100 Optimal for general population
100-129 Near optimal for general population
130-159 Borderline high
160-189 High
>=190 Very high
Patient has high LDL cholesterol. Consider screening for Familial Hypercholesterolemia. Performing Location [facility] - [address] [facility] [address]
--- OUTSIDE RECORDS SUMMARY | 2024-11-15 08:15 | External Medical Summary | Summary of Care ---
Author Name Unknown Organization [facility] Address [address] [facility] [place] [address] Phone [phone] Care Team Providers Care Director Internal Audit Name Role Phone Jazmine Anguiano MD Primary Care Provider Reason for Visit * Reason Comments Outpatient Testing Encounter Details Date Type Department Care Team (Late st Contact Info) Description 11/13/2024 11:20 AM EDT Laboratory Laboratory, [facility] [phone] [facility] [address] [place] [address] Dyslipidemia, goal LDL below 70; Encounter for long-term (current) use of medications; Type 2 diabetes mellitus with hemoglobin A1c goal of less than 7.0% (HCC); Elevated serum creatinine; Nonischemic cardiomyopathy (HCC); Permanent atrial fibrillation ([facility]) Allergies Active Allergy Reactions Criticality Noted Date Comments Statins 10/15/2022 Joint pain documented as of this encounter (statuses as of 11/13/2024) Medications Cholecalciferol (VITAMIN D3) 2000 units Tablet Take 1 Tablet by mouth in the morning. Active Multiple Vitamins-Minerals (MULTIVITAMIN ADULT) TABS Take by mouth. Act enedina Coenzyme Q10 (CO Q 10) 100 MG CAPS Take by mouth. Active Latanoprost 0.005 % Ophthalmic Solution (Xalatan) Instill 1 Drop into both eyes at bedtime. 03/15/2 021 Active OneTouch Verio w/Device KitIndications:Ty pe 2 diabetes mellitus with hemoglobin A1c goal of less than 7.0% ([facility]) Use up to 4 times a day E11.9 1 Kit 021 Active Aspirin 81 MG Oral Tablet Delayed Release Take 1 Tablet by mouth in the morning. Active [place]-3 Fish Oil 1200 MG Oral Capsule Take 1 Cap by mouth daily. Active Brimonidine Tartrate-Timolol 0.2-0.5 % Ophthalmic Solution (Combigan) Instill 1 Drop into both eyes every evening. Active OneTouch Verio In Vitro Strip (Glucose Blood)Indications :Type 2 diabetes mellitus with hemoglobin A1c goal of less than 7.0% ([facility]) Use up to 4 times a day [...] Active CPAP every night at bedtime. Active Ajkdtqd-Purcpi-Oz ell Pertussis 5-2.5-18.5 LF-MCG/0.5 Suspension Prefilled Syringe (Boostrix) Inject into a large muscle. 0.5 mL 024 Active metFORMIN HCl 500 MG Oral Tablet (Glucophage)Indic ations:Type 2 diabetes mellitus with hemoglobin A1c goal of less than 7.0% ([facility]) TAKE 1 TABLET BY MOUTH TWICE A [...] before bedtime. 12 g 1 025 Active Additional Information Patient taking differently:2 Puff [...] IN THE MORNING 45 Tablet 025 Active Torsemide 20 MG Oral Tablet (Demadex) Take 1 Tablet by mouth in the morning. 025 Active Digoxin 125 MCG Oral Tablet (Lanoxin) Take 1 Tablet by mouth every evening. 025 Active Metoprolol Succinate ER 50 MG Oral Tablet Extended Release 24 Hour (toPROL XL) Take 1 Tablet by mouth every evening. Take along with 100mg tablet for a total of 150mg in AM. 90 Tablet 3 025 2024 Discontinued documented as of this encounter (statuses as of 11/13/2024) Active Problems Problem Noted Date Diagnosed Date [...] cardiomyopathy 10/03/2018 Coronary artery disease invo lving lime coronary artery of lime heart without angina pectoris 10/03/2018 documented as of this encounter (statuses as of 11/13/2024) Resolved Problems Problem Noted Date Diagnosed Date Resolved Date Obesity, morbid (more than 1 00 lbs over ideal weight or BMI > 40) 05/27/2021 12/06/2023 Body mass index (BMI) of 40. 0 to 44.9 in adult 10/30/2019 06/05/2021 Overview: Per Obesity protocol documented as of this encounter (statuses as of 11/13/2024) Immunizations Name Administration Dates Next Due COVID-19 mRNA, LNP-s, No Pre serve, 2-Dose Series ([place]) 11/09/2020,10/19/2020 COVID-19, MRNA-LNP, PF, 50 M CG/0.5 [...] 11/08/2023 Does the household have a re lar source of income? (Household - for ages [...] as of this encounter Miscellaneous Notes * Result Encounter Note - Justina Brower PA-C - 11/13/2024 3:02 PM EDT Worsening kidney function noted. Creatinine was 1.26 when he left the hospital now 2.5. Hold torsemide and spironolactone. Hold Entresto for now. Repeat BMP in 2 days Low salt diet. Compression stockings for LE edema. documented in this encounter Plan of Treatment Upcoming Encounters Date Type Department Care Team (Late st Contact Info) Description 11/16/2024 3:00 PM EDT Office Visit Family Practice [facility] [address] [place] [address] Melissa Kelley CRNP [address] [place] [address] 11/30/2024 10:00 AM EDT Office Visit Cardiology, [facility] [address] [place] [phone] Michael Villegas DO [address] [place] [address] 12/26/2024 10:00 AM EDT Office Visit Pharmacy, [facility] [address] [place] [address] [facility] [address] [place] [address] 05/01/2025 3:00 PM EDT Office Visit Cardiology, [facility] [address] [place] [phone] Justina Brower PA-C [address] [place] [phone] Pending Results Name Type Priority Associated Diagnoses Date /Time LIPID PANEL WITH DIRECT LDL IF TG IS HIGH Lab Routine Dyslipidemia, goal LDL below 70 11/13/2024 11:18 AM EDT MAGNESIUM Lab Routine Encounter for long-term (current) use of medications 11/13/2024 11:18 AM EDT HEMOGLOBIN A1C Lab Routine Type 2 diabetes mellitus with hemoglobin A1c goal of less than 7.0% ([facility]) 11/13/2024 11:18 AM EDT TSH WITH FREE T4 IF INDICATED Lab Routine Nonischemic cardiomyopathy (HCC) Permanent atrial fibrillation (HCC) 11/13/2024 11:18 AM EDT DIGOXIN LEVEL Lab Routine Nonischemic cardiomyopathy (HCC) Permanent atrial fibrillation (HCC) 11/13/2024 11:18 AM EDT ALBUMIN / CREATININE RATIO, URINE Lab Routine Type 2 diabetes mellitus with hemoglobin A1c goal of less than 7.0% (HCC) 11/13/2024 11:22 AM EDT Health Maintenance Due Date Last [...] from 09/08/2023 (Acute Illness) HbA1c 04/25/2025 10/23/2024, 051 02/2024, 10/11/2023, Additional history exists GFR 11/13/2025 11/13/2024, 03/0 [...] Procedure Name Priority Date/Time Associated Diagnosis Comments DIFFERENTIAL, AUTOMATED Routine 11/13/2024 11:18 AM EDT Encounter for long-term (current) use of medications COMPREHENSIVE METABOLIC PANEL Routine 11/13/2024 11:18 AM EDT Nonischemic cardiomyopathy (HCC) Permanent atrial fibrillation (HCC) CBC Routine 11/13/2024 11:18 AM EDT Encounter for long-term (current) use of medications CBC Routine 11/13/2024 11:18 AM EDT Encounter for long-term (current) use of medications DIFFERENTIAL, TECHNOLOGIST REVIEW Routine 11/13/2024 11:18 AM EDT Encounter for long-term (current) use of medications documented in this encounter Results * (ABNORMAL) DIFFERENTIAL, TECHNOLOGIST REVIEW (11/13/2024 11:18 AM EDT) WBC 25.14(H) 4.00 - 10.80 K/uL 11/13/2024 12:11 PM EDT [facility] Neutrophils % 83.0(H) 40.0 - 75.0 % 11/13/2024 12:11 PM EDT [facility] Lymphocytes % 5.0(L) 18.0 - 42.0 % 11/13/2024 12:11 PM EDT [facility] Monocytes % 8.0 1.0 - 11.0 % 11/13/2024 12:11 PM EDT [facility] Metamyelocytes % 4.0(H) <=0.0 % 11/14/19 12:11 PM EDT [facility] Absolute Neutrophils 20.87(H) 1.80 - 7.70 K/uL 11/13/2024 12:11 PM EDT [facility] Absolute Lymphocytes 1.26 1.00 - 4.80 K/uL 11/13/2024 12:11 PM EDT [facility] Absolute Monocytes 2.01(H) 0.00 - 1.10 K/uL 11/13/2024 12:11 PM EDT [facility] Absolute Metamyelocytes 1.01(H) <=0.00 K/uL 11/13/2024 12:11 PM EDT [facility] nRBCs 11/13/2024 12:11 PM EDT [facility] Blood Venous blood specimen / Unknown Venipuncture / Unknown 11/13/2024 11:18 AM EDT 11/13/2024 11:18 AM EDT [facility] LAB BLOOD ORDERABLES Final Re sult [facility] [address] [facility] [address] * DIFFERENTIAL, AUTOMATED (11/13/2024 11:18 AM EDT) Blood Venous blood specimen / Unknown Venipuncture / Unknown 11/13/2024 11:18 AM EDT 11/13/2024 11:18 AM EDT [facility] LAB BLOOD ORDERABLES Final Re sult [facility] [facility] [place] [address] * (ABNORMAL) CBC (11/13/2024 11:18 AM EDT) WBC 25.14(H) 4.00 - 10.80 K/uL 11/13/2024 12:11 PM EDT [facility] RBC 4.85 4.50 - 5.25 M/uL 11/13/2024 12:11 PM EDT [facility] 57[facility]10 HGB 11.3(L) 14.0 - 16.8 g/dL 11/13/2024 12:11 PM EDT [facility] HCT 36.5(L) 40.0 - 48.4 % 11/13/2024 12:11 PM EDT [facility] MCV 75.3 82.0 - 99.5 fL 11/13/2024 12:11 PM EDT [facility] MCH 23.3 27.0 - 34.0 pg 11/13/2024 12:11 PM EDT [facility] MCHC 31.0 32.0 - 36.0 g/dL 11/13/2024 12:11 PM EDT [facility] 57[facility]10 RDW 18.3 11.5 - 15.5 % 11/13/2024 12:11 PM EDT [facility] PLT 267 140 - 400 K/uL 11/13/2024 12:11 PM EDT [facility] MPV 10.1 6.6 - 11.1 fL 11/13/2024 12:11 PM EDT [facility] 57[facility]10 Blood Venous blood specimen / Unknown Venipuncture / Unknown 11/13/2024 11:18 AM EDT 11/13/2024 11:18 AM EDT us [facility] LAB BLOOD ORDERABLES Final Re sult [facility] [place] [address] * (ABNORMAL) COMPREHENSIVE METABOLIC PANEL (11/13/2024 11:18 AM EDT) BUN 43(H) 6 - 20 mg/dL 11/13/2024 1:13 PM EDT [facility] CREATININE 2.5(H) 0.6 - 1.2 mg/dL 11/13/2024 1:13 PM EDT [facility]10 Comment:Results rechecked EGFR 28(L) >=60 mL/min 11/13/2024 1:13 PM EDT [facility] 57-10 Comment:eGFR is calculated b ased on the CKD-EPI 2020 equation. SODIUM 134(L) 135 - 146 mmol/L 11/13/2024 1:13 PM EDT [facility] 57[facility]10 POTASSIUM 4.2 3.5 - 5.1 mmol/L 11/13/2024 1:13 PM EDT [facility] 57[facility]10 CHLORIDE 94(L) 98 - 107 mmol/L 11/13/2024 1:13 PM EDT [facility] 57[facility]10 CO2 25 22 - 32 mmol/L 11/13/2024 1:13 PM EDT [facility]10 ANION GAP 15 7 - 15 mmol/L 11/13/2024 1:13 PM EDT [facility] 57[facility]10 GLUCOSE 224(H) 70 - 120 mg/dL 11/13/2024 1:13 PM EDT [facility] 57[facility]10 Albumin 3.2(L) 3.8 - 5.0 g/dL 11/13/2024 1:13 PM EDT [facility] 57[facility]10 AST 21 10 - 50 U/L 11/13/2024 1:13 PM EDT [facility] 57[facility]10 Alkaline Phosphatase 106 35 - 130 U/L 11/13/2024 1:13 PM EDT [facility] 57[facility]10 Bilirubin, Total 0.9 <=1.2 mg/dL 11/13/2024 1:13 PM EDT [facility]10 CALCIUM 9.2 8.4 - 10.2 mg/dL 11/13/2024 1:13 PM EDT [facility] 57[facility]10 Protein 5.9(L) 6.0 - 8.3 g/dL 11/13/2024 1:13 PM EDT [facility] 57[facility]10 ALT 31 10 - 50 U/L 11/13/2024 1:13 PM EDT [facility] 57-10 Blood Venous blood specimen / Unknown Venipuncture / Unknown 11/13/2024 11:18 AM EDT 11/13/2024 11:18 AM EDT Justina Brower PA-C LAB BLOOD ORDERABLES F inal Result [facility] [place] [address] documented in this encounter Visit Diagnoses Diagnosis Dyslipidemia, goal LDL below 70 Other and unspecified hyperlipidemia Encounter for long-term (current) use of medications Encounter for long-term (current) use of other medications Type 2 diabetes mellitus with hemoglobin A1c goal of less than 7.0% (HCC) Elevated serum creatinine Other nonspecific findings on examination of blood Nonischemic cardiomyopathy (HCC) Other primary cardiomyopathies Permanent atrial fibrillation (HCC) Atrial fibrillation documented in this encounter Care Teams Director Internal Audit Relationship Specialty Start Date End Date Jazmine Anguiano MD [address] [place] [address] PCP - General Internal Medicine 12/06/23 documented as of this encounter
--- OUTSIDE RECORDS SUMMARY | 2024-11-15 08:15 | External Medical Summary ---
Author Name Unknown Address Unknown Organization K01:LAB[facility] - [address] [facility] [address] [place] [address] Laboratory Report Ordering Provider Test Date Status TIERRA ALCAZAR 11/13/2024 11:18:30 Final Observation Date Value Abnormality Reference (Units ) Status TSH 11/13/2024 11:18:30 <0.01 Below low normal 0.2 7-4.20 (uIU/mL) Final Performing Location LABORATORY [facility] - [address] [place] [address]
--- OUTSIDE RECORDS SUMMARY | 2024-11-15 08:15 | External Medical Summary ---
Author Name Unknown Address Unknown Organization [id number]:[facility]ATORY [facility] [place] [address] [facility] [address] Laboratory Report Ordering Provider Test Date Status ELYSSA SHAY 11/13/2024 11:18:30 Final Observation Date Value Abnormality Reference (Units ) Status HbA1C 11/13/2024 11:18:30 8.7 Above high normal 4. 0-5.6 (%) Final The use of HbA1c to monitor glycemic status is based on normal hemoglobin and HbA composition. This test should not be used in patients with abnormal hemoglobin that affects the half life of the red blood cell or the in vivo glycation rates. Glucose, estimated average 11/13/2024 11:18:30 203 Above high normal <126 (mg/dL) Fin [facility] Location LAB[facility]ATORY [facility] [place] [facility] [address] [facility] [address]
--- OUTSIDE RECORDS SUMMARY | 2024-11-15 08:15 | External Medical Summary ---
Author Name Unknown Address Unknown Organization [id number]:LABORATORY [facility] - [address] [place] [address] Laboratory Report Ordering Provider Test Date Status BURKE VIVEROS 11/13/2024 11:18:30 Final Observation Date Value Abnormality Reference (Units ) Status WBC, Total 11/13/2024 11:18:30 25.14 Above high normal 4 .00-10.80 (K/uL) Final RBC 11/13/2024 11:18:30 4.85 4.50-5.25 (M/uL) Final Hemoglobin 11/13/2024 11:18:30 11.3 Below low normal 14 .0-16.8 (g/dL) Final HCT 11/13/2024 11:18:30 36.5 Below low normal 40. 0-48.4 (%) Final MCV 11/13/2024 11:18:30 75.3 82.0-99.5 (fL) Final MCH 11/13/2024 11:18:30 23.3 27.0-34.0 (pg) Final MCHC 11/13/2024 11:18:30 31.0 32.0-36.0 (g/dL) Final RDW 11/13/2024 11:18:30 18.3 11.5-15.5 (%) Final Platelets 11/13/2024 11:18:30 267 140-400 (K /uL) Final MPV 11/13/2024 11:18:30 10.1 6.6-11.1 ( fL) Final Performing Location LABORATORY [facility] [place] [facility] 0 - [address] [place] [address]
--- OUTSIDE RECORDS SUMMARY | 2024-11-15 08:15 | External Medical Summary | Summary of Care ---
Author Name Unknown Organization [facility] Address [address] [address] Phone [phone] Care Team Providers Care Jukebox Route Driver Name Role Phone Jazmine Anguiano MD Primary Care Provider Reason for Visit * Reason Onset Date Comments Hospital Follow-Up 11/13/2024 [facility] 11/10 MARINO call Encounter Details Date Type Department Care Team (Late st Contact Info) Description 11/13/2024 Telephone Family Practice [facility] [address] [facility] [place] [id number] Amanda Figueroa, ANA PAULA Hospital Follow-Up ([facility] dc 11/10 MARINO call) Allergies Active Allergy Reactions Criticality Noted Date [...] goal of less than 7.0% ([facility]) Use up to 4 times a day E11.9 1 Kit 06/09/2 021 Active Aspirin 81 MG Oral Tablet Delayed Release Take 1 Tablet by mouth in the morning. Active [place]-3 Fish Oil 1200 MG Oral Capsule Take 1 Cap by mouth daily. Active Brimonidine Tartrate-Timolol 0.2-0.5 % Ophthalmic Solution (Combigan) Instill 1 Drop into both eyes every evening. Active OneTouch Verio In Vitro Strip (Glucose Blood)Indications :Type 2 diabetes mellitus with hemoglobin A1c goal of less than 7.0% (HCC) Use up to 4 times a day E11.9 400 Strip 3 Active OneTouch Delica Lancets 33G Use as directed 4 times a day as needed for Hyperglycemia (high sugar) or Hypoglycemia (low sugar). 400 Each 3 Active Meclizine HCl 25 MG Oral Tablet Chewable Take 1 Tablet by mouth 3 times a day as needed for Dizziness. 30 Tablet 1 Active Entresto 24-26 MG Oral Tablet (sacubitril-valsa rtan 24-26 mg per tab)Indications:N onischemic cardiomyopathy (HCC) TAKE 1 TABLET BY MOUTH TWICE A DAY 180 Tablet 3 Active Repatha SureClick 140 MG/ML Subcutaneous Solution Auto-injector (evolocumab) Inject 140 mg under the skin every 14 days. Remove from refrigerator 30 minutes prior to injection. 6 mL 3 10/18/19 25 10:28 AM EST Active CPAP every night at bedtime. Active Swbzehb-Woosey-Sh ell Pertussis 5-2.5-18.5 LF-MCG/0.5 Suspension Prefilled Syringe [...] for a total of 150mg at night 025 Active Metoprolol Succinate ER 50 MG Oral Tablet Extended Release 24 Hour (toPROL XL) Take 1 Tablet by mouth every evening. Take along with 100mg tablet for a total of 150mg in AM. 90 Tablet 3 025 2024 Discontinued Metoprolol Succinate ER 50 MG Oral Tablet Extended Release 24 Hour (toPROL XL)Indications:Pa roxysmal atrial fibrillation (HCC) Take 1 Tablet by mouth in the morning and 1 Tablet in the evening. Take along with 100mg tablet for a total of 150mg twice daily. 025 2024 Discontinued documented as of this [...] cardiomyopathy 10/03/2018 Coronary artery disease invo lving [place] coronary artery of [place] heart without angina pectoris 10/03/2018 documented as [...] mRNA, LNP-s, No Pre serve, 2-Dose Series (Pfizer) 11/09/2020,10/19/2020 COVID-19, MRNA-LNP, PF, 50 M CG/0.5 [...] encounter Miscellaneous Notes * Telephone Encounter - Amanda Figueroa RN - 11/13/2024 12:17 PM EDT Transitions of Care Note Reason for Referral:Recent Admission Phone visit for follow up: MARINO Admitted to: [facility], Date: 11/06 Discharged to: home, Date: 11/10 Diagnosis driving hospitalization: Acute systolic CHF Afib with RVR Source/Contact: Patient SUBJECTIVE Consent: Verbal consent for review of hospital discharge: Yes REVIEW OF SYSTEMS Patient/Other Reports: Current patient/caregiver problems or concerns: none at this time CV: Denies problems Pulmonary: Denies problems Chills/Sweats/Fever:Denies chills/sweats Denies fever Appetite:Denies problems such as nausea, vomiting, burning, decreased appetite Current diet: heart healthy Bowel: denies problems Bladder: denies problems Wound (If applicable): N/A Pain:Denies Sleep:Denies problems FUNCTIONAL STATUS: ADL'S: Needs Assistance With:N/A as pt is independent IADL'S: Needs Assistance With:N/A as pt is independent Cognitive and Mental Health: denies problems, alert and oriented x 3, and able to communicate, understand instructions, process information. MEDICATION RECONCILIATION Medications: Discharge med list reviewed with patient or caregiver New medication(s) filled since hospitalization- Digoxin, Torsemide Changed medication(s) since hospitalization metoprolol Discontinued medication(s) since hospitalization- lasix Reports all medications taken as prescribed. Denies side effects ASSESSMENT Medication Risk Assessment: No risks identified Discharge instructions available for review? Yes PLAN Symptom Monitoring Interventions:Member/caregiver education - signs and symptoms to contact PrimaryCare (DO NOT DELETE-Three rodas symptoms patient is to report to PCP) 1. SOB 2. Weight gain > 3 lbs overnight or 5 lbs in a week 3. Chest pain Sack CleanerFiberglass Grinder of Care interventions/Action Plan: Medication reconciliation and 5 - 7 day follow-up with PCP in place - Date: 11/16 Educated on role of MARINO completed with patient/caregiver. Educated patient/caregiver on patient right to have input on MARINO plan of care. Verification of Home Health/DME if indicated: No Identified Care Gaps: Yes Care Gaps closed this call: Appointment made or confirmed, Medication adherence, and Transition of Care follow-up communication Re-evaluation of Plan of Care and progress towards goals achievement: Patient education this visit: Verbal, as above Plan to follow-up as previously scheduled, instructed to call Primary Care Provider with change in symptoms or as needed before next follow-up, discharge needs met, verbalizes understanding and agrees with plan. Amanda Figueroa, RN documented in this encounter Plan of Treatment Upcoming Encounters Date Type Department Care Team (Late st Contact Info) Description 11/16/2024 3:00 PM EDT Office Visit Family Practice [facility] [address] [place] [phone] Melissa Kelley CRNP [address] [place] [phone] 11/30/2024 10:00 AM EDT Office Visit Cardiology, [facility] [address] [place] [phone] Michael Villegas DO [address] [place] [address] 12/26/2024 10:00 AM EDT Office Visit Pharmacy, [facility] [address] [place] [address] [facility] [address] [place] [address] 05/01/2025 3:00 PM EDT Office Visit Cardiology, [facility] [address] [place] [phone] Justina Brower PA-C [address] [place] [address] Health Maintenance Due Date Last Done Comments Hepatitis C Screening 01/07/1974 Cologuard 01/07/2001 Fecal Occult Blood Test 01/07/2001 Sigmoidoscopy 01/07/2001 Depression Screening 08/26/2023 08/26/2022 COVID-19 Vaccine ( season) 2024 04/29/2024, 05/29/2023, 05/04/2022, Additional history exists Albumin/Creatinine Ratio 10/11/2024 025, 10/11/2023, 01/09/2022, Additional history exists Pneumococcal Vaccine: 50+ Years (3 of 3 - PCV20 or PCV21) 10/17/2024 10/17/2019, 07/19/2018 Diabetic Foot Exam 12/05/2024 12/06/2023, 07/11/2021 Diabetic Eye Exam 04/11/2025 09/08/2022, 09/16/2021 Postponed from 09/08/2023 (Acute Illness) HbA1c 04/25/2025 10/23/2024, 12/21, 10/11/2023, Additional history exists GFR 11/13/2025 11/13/2024, [...] as of this encounter Visit Diagnoses Diagnosis Paroxysmal atrial fibrillation (HCC) Atrial fibrillation documented in this encounter Care Teams Jukebox Route Driver Relationship Specialty Start Date End Date Jazmine Anguiano MD [address] [facility] [place] [address] PCP - General Internal Medicine 12/06/23 documented as of this encounter
--- OUTSIDE RECORDS SUMMARY | 2024-11-15 08:15 | External Medical Summary | Summary of Care ---
Author Name Unknown Organization [facility] Address [address] [facility] [place] [address] Phone [phone] Care Team Providers Care Company Controller Name Role Phone Jazmine Anguiano MD Primary Care Provider Reason for Visit * Reason Comments Outpatient Testing Encounter Details Date Type Department Care Team (Late st Contact Info) Description 11/13/2024 11:20 AM EDT Laboratory Laboratory, [facility] [phone] [facility] 132 [place] [address] Dyslipidemia, goal LDL below 70; Encounter for long-term (current) use of medications; Type 2 diabetes mellitus with hemoglobin A1c goal of less than 7.0% (HCC); Elevated serum creatinine; Nonischemic cardiomyopathy (HCC); Permanent atrial fibrillation ([facility]) Allergies Active Allergy Reactions Criticality Noted Date [...] A1c goal of less than 7.0% ([facility]) Use up to 4 times a day E11.9 1 Kit 021 Active Aspirin 81 MG Oral Tablet Delayed Release Take 1 Tablet by mouth in the morning. Active [place]-3 Fish Oil 1200 MG Oral Capsule Take 1 Cap by mouth daily. Active Brimonidine Tartrate-Timolol 0.2-0.5 % Ophthalmic Solution (Combigan) Instill 1 Drop into both eyes every evening. Active OneTouch Verio In Vitro Strip (Glucose Blood)Indications :Type 2 diabetes mellitus with hemoglobin A1c goal of less than 7.0% ([facility]) Use up to 4 times a day [...] Active CPAP every night at bedtime. Active Wanbxwg-Fzjltb-Zb ell Pertussis 5-2.5-18.5 LF-MCG/0.5 Suspension Prefilled Syringe (Boostrix) Inject into a large muscle. 0.5 mL 024 Active metFORMIN HCl 500 MG Oral Tablet (Glucophage)Indic ations:Type 2 diabetes mellitus with hemoglobin A1c goal of less than 7.0% ([facility]) TAKE 1 TABLET BY MOUTH TWICE A [...] cardiomyopathy 10/03/2018 Coronary artery disease invo lving [place] coronary artery of [place] heart without angina pectoris 10/03/2018 documented as [...] mRNA, LNP-s, No Pre serve, 2-Dose Series ([employer]) 11/09/2020,10/19/2020 COVID-19, MRNA-LNP, PF, 50 M CG/0.5 [...] 3:00 PM EDT Office Visit Family Practice [facility] [address] [place] [address] Melissa Kelley CRNP [address] [place] [address] 11/30/2024 10:00 AM EDT Office Visit Cardiology, [facility] [address] [place] [phone] Michael Villegas DO [address] [place] [address] 12/26/2024 10:00 AM EDT Office Visit Pharmacy, [facility] [address] [place] [address] [facility] [address] [place] [address] 05/01/2025 3:00 PM EDT Office Visit Cardiology, [facility] [address] [place] [phone] Justina Brower PA-C [address] [place] [address] Pending Results Name Type Priority Associated Diagnoses Date /Time LIPID PANEL WITH DIRECT LDL IF TG IS HIGH Lab Routine Dyslipidemia, goal LDL below 70 11/13/2024 11:18 AM EDT MAGNESIUM Lab Routine Encounter for long-term (current) use of medications 11/13/2024 11:18 AM EDT HEMOGLOBIN A1C Lab Routine Type 2 diabetes mellitus with hemoglobin A1c goal of less than 7.0% ([facility]) 11/13/2024 11:18 AM EDT TSH WITH FREE [...] 11:18 AM EDT 11/13/2024 11:18 AM EDT [facility] LAB BLOOD ORDERABLES Final Re sult LABORATORY [facility] [facility] [address] [facility] [address] * DIFFERENTIAL, AUTOMATED (11/13/2024 11:18 AM EDT) Blood Venous blood specimen / Unknown Venipuncture / Unknown 11/13/2024 11:18 AM EDT 11/13/2024 11:18 AM EDT [facility] LAB BLOOD ORDERABLES Final Re sult LABORATORY [facility] [place] [address] * (ABNORMAL) CBC (11/13/2024 11:18 AM EDT) WBC 25.14(H) 4.00 - 10.80 K/uL 11/13/2024 12:11 PM EDT [facility]ORY [place] [facility] RBC 4.85 4.50 - 5.25 M/uL 11/13/2024 12:11 PM EDT LABORATORY [facility] [facility] HGB 11.3(L) 14.0 - 16.8 g/dL 11/13/2024 12:11 PM EDT LAB[facility]ORY [place] [facility] HCT 36.5(L) 40.0 - 48.4 % 11/13/2024 12:11 PM EDT [facility] [place] [facility] MCV 75.3 82.0 - 99.5 fL 11/13/2024 12:11 PM EDT LAB[facility]ORY [place] [facility] MCH 23.3 27.0 - 34.0 pg 11/13/2024 12:11 PM EDT [facility]ORY [place] [facility] MCHC 31.0 32.0 - 36.0 g/dL 11/13/2024 12:11 PM EDT LABORATORY [facility] [place] [facility] RDW 18.3 11.5 - 15.5 % 11/13/2024 12:11 PM EDT LABORATORY [facility] [place] [facility] PLT 267 140 - 400 K/uL 11/13/2024 12:11 PM EDT [facility]ORY [place] [facility] MPV 10.1 6.6 - 11.1 fL 11/13/2024 12:11 PM EDT LABORATORY [facility] Blood Venous blood specimen / Unknown Venipuncture / Unknown 11/13/2024 11:18 AM EDT 11/13/2024 11:18 AM EDT us Taj Berger [facility] LAB BLOOD ORDERABLES Final Re sult LAB[facility]ATORY [place] [facility] [place] [address] * (ABNORMAL) COMPREHENSIVE METABOLIC PANEL (11/13/2024 11:18 AM EDT) BUN 43(H) 6 - 20 mg/dL 11/13/2024 1:13 PM EDT LAB[facility]ORY [place] [facility] CREATININE 2.5(H) 0.6 - 1.2 mg/dL 11/13/2024 1:13 PM EDT [facility]ORY [facility] Comment:Results rechecked EGFR 28(L) >=60 mL/min 11/13/2024 1:13 PM EDT [facility] Comment:eGFR is calculated b ased on the CKD-EPI 2020 equation. SODIUM 134(L) 135 - 146 mmol/L 11/13/2024 1:13 PM EDT LAB[facility] POTASSIUM 4.2 3.5 - 5.1 mmol/L 11/13/2024 1:13 PM EDT [facility] CHLORIDE 94(L) 98 - 107 mmol/L 11/13/2024 1:13 PM EDT [facility] CO2 25 22 - 32 mmol/L 11/13/2024 1:13 PM EDT [facility] ANION GAP 15 7 - 15 mmol/L 11/13/2024 1:13 PM EDT [facility] GLUCOSE 224(H) 70 - 120 mg/dL 11/13/2024 1:13 PM EDT [facility] Albumin 3.2(L) 3.8 - 5.0 g/dL 11/13/2024 1:13 PM EDT [facility] AST 21 10 - 50 U/L 11/13/2024 1:13 PM EDT [facility] Alkaline Phosphatase 106 35 - 130 U/L 11/13/2024 1:13 PM EDT LAB[facility]10 Bilirubin, Total 0.9 <=1.2 mg/dL 11/13/2024 1:13 PM EDT LAB[facility] CALCIUM 9.2 8.4 - 10.2 mg/dL 11/13/2024 1:13 PM EDT [facility] Protein 5.9(L) 6.0 - 8.3 g/dL 11/13/2024 1:13 PM EDT [facility]10 ALT 31 10 - 50 U/L 11/13/2024 1:13 PM EDT [facility]10 Blood Venous blood specimen / Unknown Venipuncture / Unknown 11/13/2024 11:18 AM EDT 11/13/2024 11:18 AM EDT Justina Brower PA-C LAB BLOOD ORDERABLES F inal Result LABORATORY [place] [facility] [place] [address] documented in this encounter Visit Diagnoses Diagnosis [...] fibrillation documented in this encounter Care Teams Company Controller Relationship Specialty Start Date End Date Jazmine Anguiano MD [address] [place] [address] PCP - General Internal Medicine 12/06/23 documented as of this encounter
--- OUTSIDE RECORDS SUMMARY | 2024-11-15 08:15 | External Medical Summary | Summary of Care ---
Author Name Unknown Organization [facility] Address [address] [facility] [place] [address] Phone [phone] Care Team Providers Care Splicing Machine Operator Name Role Phone Jazmine Anguiano MD Primary Care Provider Reason for Referral * Evaluate & Treat - Unlimited Visits (Within 10 days (routine)) - Authorized Specialty Diagnoses / Procedures Referred By Contact Referred To Contact Cardiac Electrophysiology / Cardiology Diagnoses Nonischemic cardiomyopathy (HCC) Permanent atrial fibrillation (HCC) Justina Brower PA-C [address] [place] [address] Phone: tel:[phone] fax:[phone] Referral ID Status Reason Start Date Expiration Date Visits Requested Visits Authorized [id number] Authorized Specialty Services Required 11/13/2024 999 999 Question Answer Referral Priority Within 10 days (routine) Where should this appointment be scheduled? [facility] Comments Single lead device - worsening CHF symptoms; wider QRS - upgrade device to BIV? Now persistent afib, had to stop amio and intolerant of higher dose metoprolol? Consider AV honorio ablation? 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 Active Wallace-3 Fish Oil 1200 MG Oral Capsule Take 1 Cap by mouth daily. Active Brimonidine Tartrate-Timolol 0.2-0.5 % Ophthalmic Solution (Combigan) Instill 1 Drop into both eyes every evening. Active OneTouch Verio In Vitro Strip (Glucose Blood)Indications :Type 2 diabetes mellitus with hemoglobin A1c goal of less than 7.0% ([facility]) Use up to 4 times a day [...] Active CPAP every night at bedtime. Active Rztboum-Xefzsf-Fb ell Pertussis 5-2.5-18.5 LF-MCG/0.5 Suspension Prefilled Syringe [...] Oral Tablet (Rivaroxaban)Chloe cations:Atrial fibrillation, unspecified type ([facility]) TAKE 1 TABLET BY MOUTH EVERY DAY [...] Tablet by mouth every evening. 025 Active Furosemide 20 MG Oral Tablet (Lasix)Indication s:Essential hypertension with goal blood pressure less than 130/80 TAKE 1 TABLET BY MOUTH EVERY DAY IN THE MORNING 90 Tablet 025 2024 Discontinued(M edication/Dose Changed) Metoprolol Succinate ER 50 MG Oral Tablet Extended Release 24 Hour (toPROL XL)Indications:Pa roxysmal atrial fibrillation (HCC) Take 1 Tablet by mouth in the morning. Take along with 100mg tablet for a total of 150mg in AM.. 90 Tablet 3 025 2024 Discontinued(M edication List Clean Up) Metoprolol Succinate ER 50 [...] cardiomyopathy 10/03/2018 Coronary artery disease invo lving wales coronary artery of wales heart without angina pectoris 10/03/2018 documented as [...] mRNA, LNP-s, No Pre serve, 2-Dose Series ([employer]) 11/09/2020,10/19/2020 COVID-19, MRNA-LNP, PF, 50 M CG/0.5 [...] Sign Reading Time Taken Comments Blood Pressure 108/60 11/13/2024 10:34 AM EDT Pulse 88 11/13/2024 10:34 AM EDT Temperature - - Respiratory Rate 16 11/13/2024 10:34 AM EDT Oxygen Saturation - - Inhaled Oxygen Concentration - - Weight 124.1 kg (273 lb 8 oz) 11/13/2024 10:34 A M EDT Height - - Body Mass Index 42.18 10/12/2024 3:01 PM EST documented in this encounter Patient Instructions * Patient Instructions* Justina Brower PA-C - 11/13/2024 10:58 AM EDT Reduce metoprolol 100 mg - 1 tablet in the morning. Continue the 100 and 50 mg tablets at night Blood work today documented in this encounter Progress Notes * Justina Brower PA-C - 11/13/2024 10:38 AM EDT Images from the original note were not included. 11/13/2024 Cardiology Hospital F/U: Patient is a 69-year-old male here today for cardiology hospital follow-up. Last clinic evaluation approximately 12 months ago with the undersigned. Previously followed by Dr. Aldridge. History includes: 1. Non ischemic cardiomyopathy with history of afib and VT; PVC's 2. Minor CAD 3. Primary prevention ICD -single lead 4. Statin intolerance, starting PCSK9 inhib 5. JOSE DE JESUS 6. Persistent afib, dating back to Aug 2024, amio discontinued due to hyperthyroidism 7. HFrEF with 2 recent admissions with CHF exacerbations History of Present Illness Sharad James is a 69 year old male with non-ischemic cardiomyopathy who presents for hospital follow-up. Recently admitted 2 x in Sep 2024 for palpitations, found to have recurrent afib RVR in setting of hyperthyroidism. Amiodarone was discontinued and ongoing rate control strategy recommended. Metoprolol increased to 100 mg BID. Recurrent admission in october 2024 for worsening SOB, edema, findings consistent with Acute on chronic HFrEF and afib with elevated rates. He was diuresed over the course of 5 days with weight loss of about 5-10 lbs. Torsemide prescribed on discharge. He reports having diarrhea with the torsemide at home, but notes ongoing diuresis. Still has LE edema. Metoprolol also increased to 150 mg BID and digoxin added for rate control. He is accompanied by his who is concerned about his fatigue and inability to stay awake. He has intermittent low BP. They believe medication is causing his symptoms as well. He has been monitoring his blood pressure at home, noting readings in the 110 over eighties or nineties. Initially lower in clinic today.. He feels ' no worse than usual' but experiences fatigue moreeasily than desired. He has noticed a weight loss of about half a pound to a pound per day since returning home on torsemide. He experiences significant fatigue, described by his caregiver as an inability to stay awake, even during the day. 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 He sleeps well at night without waking up short of breath but continues to have a persistent cough. He reports a clear fluid seeping from a leg for the past three days, which he attributes to swelling rather than infection, as there is no warmth or redness. No dizziness, lightheadedness, or chest pain. He is currently on metoprolol, which was recently increased to 150 mg BID, and digoxin. He was switched to torsemide 20 mg daily from furosemide, and he notes that urination often coincides with bowel movements since starting torsemide. He has been trying to maintain a low-sodium diet, aiming for less than 1500 mg per day. Review of Systems: See HPI for pertinent positives. All others negative, other than those noted in HPI. Patient Active Problem List Diagnosis Nonischemic cardiomyopathy (HCC) Coronary artery disease involving wales coronary artery of wales heart without angina pectoris Essential hypertension with [...] of 40.0 to 44.9 in adult (HCC) Colon polyp Past Surgical History: Procedure Laterality Date COLONOSCOPY, DIAGNOSTIC (RECTUM) N/A 01/22/2023 diverticulosis/biopsies normal/Colonoscopy/[place] TOTAL HIP REPLACEMENT & PROSTHESIS Bilateral Family History Problem Relation Name Age of Onset Heart disease Mother Diabetes Mother Other (cva) Mother Asthma Father Other (1/2 brother with colon cancer) Brother Social History Tobacco Use Smoking status: Former Current packs/day: 0.00 Types: Cigarettes Quit date: 1995 Years since quittin.2 Smokeless tobacco: Never Vaping Use Vaping status: Never Used Substance Use Topics Alcohol use: Yes Comment: 2-3 drinks a week Drug use: Never Review of patient's allergies indicates: Allergen Reactions Statins Joint pain Current Outpatient Medications Medication Sig Dispense Refill Cholecalciferol (VITAMIN D3) 2000 units Tablet Take 1 Tablet by mouth in the morning. Multiple Vitamins-Minerals (MULTIVITAMIN ADULT) TABS Take by mouth. Coenzyme Q10 (CO Q 10) 100 MG CAPS Take by mouth. Latanoprost 0.005 % Ophthalmic Solution (Xalatan) Instill 1 Drop into both eyes at bedtime. Aspirin 81 MG Oral Tablet Delayed Release Take 1 Tablet by mouth in the morning. Wallace-3 Fish Oil 1200 MG Oral Capsule Take 1 Cap by mouth daily. Brimonidine Tartrate-Timolol 0.2-0.5 % Ophthalmic Solution (Combigan) Instill 1 Drop into both eyesevery evening. Meclizine HCl 25 MG Oral Tablet Chewable Take 1 Tablet by mouth 3 times a day as needed for Dizziness. 30 Tablet 1 Entresto 24-26 MG Oral Tablet (sacubitril-valsartan 24-26 [...] the morning and 2 Puffs before bedtime. (Patient taking differently: Inhale 2 Puffs by mouth as needed.) 12 g 1 Mometasone Furoate 110 MCG/ACT Inhalation Aerosol Powder Breath Activated (Asmanex) Inhale 1 Puff by mouth every evening. 1 Each 1 Spironolactone 25 MG Oral Tablet (Aldactone) TAKE 1/2 TABLET BY MOUTH IN THE MORNING 45 Tablet 0 Torsemide 20 MG Oral Tablet (Demadex) Take 1 Tablet by mouth in the morning. Digoxin 125 MCG Oral Tablet (Lanoxin) Take 1 Tablet by mouth every evening. QU[employer]IONS w/Device Kit Use up to 4 times a day E11.9 1 Kit 0 OneTouch Verio In Vitro Strip (Glucose Blood) Use up to 4 times a day E11.9 400 Strip 3 OneTouch Delica Lancets 33G Use as directed 4 times a day as needed for Hyperglycemia (high sugar) or Hypoglycemia (low sugar). 400 Each 3 Eusbxvi-Vupkeo-Qirul Pertussis 5-2.5-18.5 LF-MCG/0.5 Suspension Prefilled Syringe (Boostrix) Injectinto a large muscle. 0.5 mL 0 Metoprolol Succinate ER 50 MG Oral Tablet Extended Release 24 Hour (toPROL XL) Take 1 Tablet by mouth in the morning. Take along with 100mg tablet for a total of 150mg in AM.. (Patient taking differently: Take 1 Tablet by mouth in the morning. Take along with 150mg tablet for a total of 150mg in AM..) 90 Tablet 3 Metoprolol Succinate ER 100 MG Oral Tablet Extended Release 24 Hour (toPROL XL) Take 1 Tablet by mouth in the morning and 1 Tablet before bedtime. 180 Tablet 3 No current facility-administered medications for this visit. PHYSICAL EXAMINATION BP 108/60 (BP Site: Left Arm) | Pulse 88 | Resp 16 | Wt 124.1 kg (273 lb 8 oz) | BMI 42.18 kg/m |BSA 2.43 m Wt Readings from Last 3 Encounters: 11/13/24 124.1 kg (273 lb 8 oz) 11/06/24 126.6 kg (279 lb) 10/23/24 123.8 kg (273 lb) General: no acute distress and stated age Head: normocephalic, no masses, lesions, tenderness or abnormalities Eyes: conjunctiva are pink and non-injected, sclera clear Neck: supple, no adenopathy, no bruits, normal jugular venous pulse, no hepatojugular reflux Chest: normal shape and normal respiratory effort Lungs: clear to auscultation and percussion Cardiac Exam: irregularly irregular, slightly tachycardic, no murmurs gallops or rubs - normal S1, normal S2 Pulses: 2(+) throughout Abdomen: abdomen soft, non-tender, no abnormal masses and no hepatosplenomegaly Musculoskeletal: no gait disturbance, no joint inflammation, no deforming arthritis Extremities: 1+ pretibial edema Neuro: grossly normal exam Cardiac studies/labs: EKG reviewed from October 2024: Afib with RVR LAD Old anteroseptal infarct QRS 120 ms Echo report reviewed from Sep 2024: Echo report reviewed from Sep 2023: Interpretation Summary The examination is adequate to evaluate the referral indication. The left ventricular cavity size is severely enlarged. The LV wall thickness is normal. The septal motion is abnormal consistent with intraventricular conduction delay. There is moderate diffuse left ventricular hypokinesis. Calculated LV ejection Fraction = 29% (bi-plane method of discs). The left ventricular diastolic function is severely abnormal (grade III). The left atrium is moderately enlarged (42-48 ml/m^2). Moderate mitral regurgitation is present. The mitral regurgitation jet is posteriorly directed. The aortic root is mildly enlarged. Compared to prior study of July 01, 2021, there is no significant change. ICD interrogation reviewed from Sep 2023: Appropriate function and battery longevity of 6.7 years 1 episode of possible afib, non sustained. VS 99.4%; CUSTOMER EXPERIENCE ANALYST 0.6% Impression: 69 year old male 1. Nonischemic cardiomyopathy with a previous estimated left ventricular ejection fraction of 20-30% - stable, but now with worsening HF symptoms, 2 recent admissions 2. Minor coronary artery disease by cardiac catheterization 2012 3. Primary prevention ICD - single lead - QRS 120-140 ms - EP visit for consideration of BIV upgrade 4. Paroxysmally atrial fibrillation, now persistent afib, difficult to control rates. Amio discontinued due to hyperthyroidism. Fatigue on metoprolol. chronic anticoagulation. metoprolol 5. Diabetes mellitus 6. Dyslipidemia with statin intolerances. PCSK9 inhib. 7. PVC's Plan: Ongoing symptoms of fatigue with medication. Borderline low BP at times. Update labs given recent titration of diuretics. Still appears volume overloaded but BP has been borderline low. Reduce metoprolol to 100 mg in AM and 150 mg in PM Continue digoxin Consider reduction in Entresto due to low BP. Patient reports diarrhea with torsemide. Consider switching back to furosemide. Await labs. Recent echo with stable findings, LVEF 29% similar to past. Septal motion consistent with conduction delay, QRS has been measuring 120-140 ms. Now with worsening CHF symptoms - may benefit from BIV upgrade Could also consider AV honorio ablation given intolerance of high dose beta marcella Schedule EP visit Recheck TSH - if remains hyperthyroid - consider endocrine eval. This may also be contributing to his symptoms Routine device interrogation every 3 months through device clinic. CHF tools discussed including daily weights, salt/sodium/fluid restriction, and use of diuretic protocol. Consider additional furosemide for swelling if needed. Patient is being evaluated in the cardiology office for ongoing care/risk management for CHF; ICD; Afib; HTN I spent a total of 55 minutes on the date of service in preparation, delivery, and documentation ofthe care provided to Sharad James excluding any time spent in the performance of separately billed services. The patient agrees to the above plan and will call with additional questions or concerns. ER with all emergencies advised. Follow-up: Return in about 4 weeks (around 12/11/2024). | Check-out note: Blood work today EP referral - Dr. Guevara - as soon as possible 2-4 weeks with Inocente or Nelly or another AP Justina Brower PA-C Department of Cardiology Text in this note was generated using an ambient documentation service. I discussed the use of a device to record and summarize our discussion today. All persons present during the encounter consented to its use. This chart was completed in part utilizing [employer] Speech Voice Recognition Software. Grammatical errors, random word insertions, prounoun errors, and incomplete sentences are an occasional consequence of this system due to software limitations, ambient noise, and hardware issues. Any formal questions or concerns about the content, text, or information contained within the body of this dictation should be directly addressed to the provider for clarification. documented in this encounter Nursing Notes * Tatum Cota CMA - 11/13/2024 10:27 AM EDT Examination Room: 1 Name: Sharad James Date of : (1955). Reason for Visit: Hospital DC Interim Hospitalization(s): [facility] 10/17 and 11/06-11/10 Problems/Concerns: States nothing new since [facility] Chest Pain/SOB: denies [facility] Discussed: Yes [facility] is a way you can talk to your provider online through e-mail. Would you like to sign up? I can activate it for you? ALREADY ACTIVE Patient was instructed to not get up on the exam table until directed and assisted by their provider; patient is to remain seated in the chair/ wheelchair/ exam table for fall prevention and safety reasons. Patient is aware to have assistance to step down off exam table with personnel. Patient voiced full comprehension of instructions. documented in this encounter Plan of Treatment Upcoming Encounters Date Type Department Care Team (Late st Contact Info) Description 11/16/2024 3:00 PM EDT Office Visit Family Practice [facility] [address] [place] [phone] Melissa Kelley CRNP [address] [place] [address] 11/30/2024 10:00 AM EDT Office Visit Cardiology, [facility] [address] [place] [phone] Michael Villegas DO [address] [place] [address] 12/26/2024 10:00 AM EDT Office Visit Pharmacy, [facility] [address] [place] [address] [facility] [address] [place] [address] 05/01/2025 3:00 PM EDT Office Visit Cardiology, [facility] [address] [place] [phone] Justina Brower PA-C [address] [place] [address] Pending Results Name Type Priority Associated Diagnoses Date /Time TSH WITH FREE T4 IF INDICATED Lab Routine Nonischemic cardiomyopathy (HCC) Permanent atrial fibrillation (HCC) 11/13/2024 11:18 AM EDT DIGOXIN LEVEL Lab Routine Nonischemic cardiomyopathy (HCC) Permanent atrial fibrillation (HCC) 11/13/2024 11:18 AM EDT Scheduled Orders Name Type Priority Associated Diagnoses Orde r Schedule TSH WITH FREE T4 IF INDICATED Lab Routine Nonischemic cardiomyopathy (HCC) Expected: 11/13/2024, Expires: 11/13/2025 DIGOXIN LEVEL Lab Routine Nonischemic cardiomyopathy (HCC) Expected: 11/13/2024, Expires: 11/13/2025 Scheduled Referrals Name Type Priority Associated Diagnoses Orde r Schedule ELECTROPHYSIOLOGY REFERRAL OP Referral Within 10 days (routine) Nonischemic cardiomyopathy (HCC) Ordered: 11/13/2024 Health Maintenance Due Date Last Done Comments [...] as of this encounter Results * (ABNORMAL) COMPREHENSIVE METABOLIC PANEL (11/13/2024 11:18 AM EDT) BUN 43(H) 6 - 20 mg/dL 11/13/2024 1:13 PM EDT [facility] CREATININE 2.5(H) 0.6 - 1.2 mg/dL 11/13/2024 1:13 PM EDT [facility] Comment:Results rechecked EGFR 28(L) >=60 mL/min 11/13/2024 1:13 PM EDT [facility] Comment:eGFR is calculated b ased on the CKD-EPI 2020 equation. SODIUM 134(L) 135 - 146 mmol/L 11/13/2024 1:13 PM EDT [facility] POTASSIUM 4.2 3.5 - 5.1 mmol/L 11/13/2024 1:13 PM EDT [facility] CHLORIDE 94(L) 98 - 107 mmol/L 11/13/2024 1:13 PM EDT [facility] CO2 25 22 - 32 mmol/L 11/13/2024 1:13 PM EDT [facility] ANION GAP 15 7 - 15 mmol/L 11/13/2024 1:13 PM EDT [facility] GLUCOSE 224(H) 70 - 120 mg/dL 11/13/2024 1:13 PM EDT [facility] Albumin 3.2(L) 3.8 - 5.0 g/dL 11/13/2024 1:13 PM EDT [facility] AST 21 10 - 50 U/L 11/13/2024 1:13 PM EDT [facility] Alkaline Phosphatase 106 35 - 130 U/L 11/13/2024 1:13 PM EDT [facility] Bilirubin, Total 0.9 <=1.2 mg/dL 11/13/2024 1:13 PM EDT [facility] CALCIUM 9.2 8.4 - 10.2 mg/dL 11/13/2024 1:13 PM EDT [facility] Protein 5.9(L) 6.0 - 8.3 g/dL 11/13/2024 1:13 PM EDT [facility] ALT 31 10 - 50 U/L 11/13/2024 1:13 PM EDT [facility] Blood Venous blood specimen / Unknown Venipuncture / Unknown 11/13/2024 11:18 AM EDT 11/13/2024 11:18 AM EDT us Justina Brower PA-C LAB BLOOD ORDERABLES F inal Result [facility] [address] [place] [id number] documented in this encounter Visit Diagnoses Diagnosis Nonischemic cardiomyopathy (HCC)- Primary Other primary cardiomyopathies Persistent atrial fibrillation (HCC) Atrial fibrillation Acute heart failure with mildly reduced ejection fraction (HFmrEF, 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
--- OUTSIDE RECORDS SUMMARY | 2024-11-15 08:15 | External Medical Summary ---
Author Name Unknown Address Unknown Organization [id number]:LABORATORY [facility] [place] - [address] [facility] [place] [address] Laboratory Report Ordering Provider Test Date Status TIERRA ALCAZAR 11/13/2024 11:18:30 Final Observation Date Value Abnormality Reference (Units ) Status T4, Free 11/13/2024 11:18:30 3.5 Above high normal 0. 9-1.7 (ng/dL) Final Performing Location [facility]AT[facility] - [address] [facility] [address]
--- OUTSIDE RECORDS SUMMARY | 2024-11-15 08:15 | External Medical Summary ---
Author Name Unknown Address Unknown Organization [id number][place] [place] [address] [place] [address] Laboratory Report Ordering Provider Test Date Status TIERRA ALCAZAR 11/13/2024 11:18:30 Final Recommended trough therapeut ic ranges:
0.5 to 0.8 for heart failure
0.5 to 1.1 for atrial fibrillation Observation Date Value Abnormality Reference (Units ) Status Digoxin 11/13/2024 11:18:30 1.1 0.5-1.1 (n g/mL) Final Performing Location [facility] [place] [address] [place] [address]
--- OUTSIDE RECORDS SUMMARY | 2024-11-15 08:16 | External Medical Summary | Summary of Care ---
Author Name Unknown Organization [facility] Address [address] [facility] [place] [address] Phone [phone] Care Team Providers Care South Asian History Professor Name Role Phone Jazmine Anguiano MD Primary Care Provider Reason for Visit * Reason Onset Date Comments Other 11/06/2024 Encounter Details Date Type Department Care Team (Late st Contact Info) Description 11/06/2024 Telephone Family Practice [facility] [address] [place] [address] Jazmine Anguiano MD [address] [place] [phone] Other Allergies Active Allergy Reactions Criticality Noted Date Comments Statins 10/15/2022 Joint pain documented as of this encounter (statuses as of 11/07/2024) Medications Cholecalciferol (VITAMIN D3) 2000 units Tablet [...] Tablet by mouth in the morning. Active Holt-3 Fish Oil 1200 MG Oral Capsule Take [...] Active CPAP every night at bedtime. Active Anvtlny-Hsftuf-Mmn ll Pertussis 5-2.5-18.5 LF-MCG/0.5 Suspension Prefilled Syringe [...] as of this encounter (statuses as of 11/07/2024) Active Problems Problem Noted Date Diagnosed Date [...] cardiomyopathy 10/03/2018 Coronary artery disease invo lving [place] coronary artery of [place] heart without angina pectoris 10/03/2018 documented as of this encounter (statuses as of 11/07/2024) Resolved Problems Problem Noted Date Diagnosed Date Resolved Date Obesity, morbid (more than 1 00 lbs over ideal weight or BMI > 40) 05/27/2021 12/06/2023 Body mass index (BMI) of 40. 0 to 44.9 in adult 10/30/2019 06/05/2021 Overview: Per Obesity protocol documented as of this encounter (statuses as of 11/07/2024) Immunizations Name Administration Dates Next Due COVID-19 mRNA, LNP-s, No Pre serve, 2-Dose Series ([employer]) 11/09/2020,10/19/2020 COVID-19, MRNA-LNP, PF, 50 M CG/0.5 [...] encounter Miscellaneous Notes * Telephone Encounter - Erin Knowles LPN - 11/06/2024 6:07 PM EDT Called [facility] ER and told we are sending pt to them by car, driving him and we faxed over OV note as well. * Telephone Encounter - Jazmine Anguiano MD - 11/06/2024 5:40 PM EDT Please call triage nurse to let them know he is coming directly to the Emergency Department. Pleasefax my note. documented in this encounter Plan of Treatment Upcoming Encounters Date Type Department Care Team (Late st Contact Info) Description 11/13/2024 10:30 AM EDT Office Visit Cardiology, [facility] [address] [place] [address] Justina Brower PA-C [address] [place] [address] 12/26/2024 10:00 AM EDT Office Visit Pharmacy, [facility] [address] [place] [address] [facility] [address] [place] [address] 05/01/2025 3:00 PM EDT Office Visit Cardiology, [facility] [address] [place] [address] Justina Brower PA-C [address] [place] [address] Health Maintenance Due Date Last Done Comments [...] filedocumented as of this encounter Care Teams South Asian History Professor Relationship Specialty Start Date End Date Jazmine Anguiano MD [address] [place] [phone] PCP - General Internal Medicine 12/06/23 documented as of this encounter
--- OUTSIDE RECORDS SUMMARY | 2024-11-15 08:16 | External Medical Summary | Summary of Care ---
Author Name Unknown Organization [facility] Address [address] [facility] [place] [address] Phone [phone] Care Team Providers Care Professional Employer Consultant Name Role Phone Jazmine Anguiano MD Primary Care Provider Reason for Visit * Reason Onset Date Comments Other 11/06/2024 Encounter Details Date Type Department Care Team (Late st Contact Info) Description 11/06/2024 Telephone Family Practice [facility] [address] [place] [address] Jazmine Anguiano MD [address] [place] [phone] Other Allergies Active Allergy Reactions Criticality Noted Date Comments Statins 10/15/2022 Joint pain documented as of this encounter (statuses as of 11/08/2024) Medications Cholecalciferol (VITAMIN D3) 2000 units Tablet [...] of less than 7.0% ([facility]) Use up to 4 times a day E11.9 1 Kit 01/30/20 21 Active Aspirin 81 MG Oral Tablet Delayed Release Take 1 Tablet by mouth in the morning. Active Marcellus-3 Fish Oil 1200 MG Oral Capsule Take [...] Active CPAP every night at bedtime. Active Xsxjhdc-Gnyywi-Aeb ll Pertussis 5-2.5-18.5 LF-MCG/0.5 Suspension Prefilled Syringe [...] as of this encounter (statuses as of 11/08/2024) Active Problems Problem Noted Date Diagnosed Date [...] cardiomyopathy 10/03/2018 Coronary artery disease invo lving [place] coronary artery of [place] heart without angina pectoris 10/03/2018 documented as of this encounter (statuses as of 11/08/2024) Resolved Problems Problem Noted Date Diagnosed Date Resolved Date Obesity, morbid (more than 1 00 lbs over ideal weight or BMI > 40) 05/27/2021 12/06/2023 Body mass index (BMI) of 40. 0 to 44.9 in adult 10/30/2019 06/05/2021 Overview: Per Obesity protocol documented as of this encounter (statuses as of 11/08/2024) Immunizations Name Administration Dates Next Due COVID-19 mRNA, LNP-s, No Pre serve, 2-Dose Series ([employer]exercise) 11/09/2020,10/19/2020 COVID-19, MRNA-LNP, PF, 50 M CG/0.5 [...] encounter Miscellaneous Notes * Telephone Encounter - Florina Vieira MED ASSIST - 11/08/2024 8:31 AM EDT Still in-patient. H&P placed in Dr. Anguiano' mailbox. * Telephone Encounter - Jazmine Anguiano MD - 11/07/2024 12:19 PM EDT Please request ED notes from [facility]. Anticipate was admitted. * Telephone Encounter - Erin Knowles LPN - 11/06/2024 6:07 PM EDT Called [facility] ER and told we are sending [...] 11/13/2024 10:30 AM EDT Office Visit Cardiology, [facility] [address] [place] [address] Justina Brower PA-C [address] [place] [address] 12/26/2024 10:00 AM EDT Office Visit Pharmacy, [facility] [address] [place] [address] [facility] [address] [place] [address] 05/01/2025 3:00 PM EDT Office Visit Cardiology, [facility] [address] [place] [address] Justina Brower PA-C [address] [place] [address] Health Maintenance Due Date Last Done Comments [...] filedocumented as of this encounter Care Teams Professional Employer Consultant Relationship Specialty Start Date End Date Jazmine Anguiano MD [address] [place] [address] PCP - General Internal Medicine 12/06/23 documented as of this encounter
--- OUTSIDE RECORDS SUMMARY | 2024-11-15 08:16 | External Medical Summary | Summary of Care ---
Author Name Unknown Organization [facility] Address [address] [facility] [place] [address] Phone [phone] Care Team Providers Care Equipment Installation Professional Name Role Phone Jazmine Anguiano MD Primary Care Provider Reason for Visit * Reason Onset Date Comments Medication Refill 11/06/2024 Encounter Details Date Type Department Care Team (Late st Contact Info) Description 11/06/2024 Telephone Family Practice [facility] [address] [place] [address] Jazmine Anguiano MD [address] [place] [address] Medication Refill Allergies Active Allergy Reactions Criticality Noted Date [...] hemoglobin A1c goal of less than 7.0% ([facility]) Use up to 4 times a day E11.9 1 Kit 01/30/20 21 Active Aspirin 81 MG Oral Tablet Delayed Release Take 1 Tablet by mouth in the morning. Active Kremlin-3 Fish Oil 1200 MG Oral Capsule Take [...] Active CPAP every night at bedtime. Active Evdariy-Yslzum-Kls ll Pertussis 5-2.5-18.5 LF-MCG/0.5 Suspension Prefilled Syringe [...] cardiomyopathy 10/03/2018 Coronary artery disease invo lving [place] coronary artery of [place] heart without angina pectoris 10/03/2018 documented as [...] mRNA, LNP-s, No Pre serve, 2-Dose Series ([employer]) 11/09/2020,10/19/2020 COVID-19, MRNA-LNP, PF, 50 M CG/0.5 [...] No 11/08/2023 Does the household have a [facility] source of income? (Household - [...] encounter Miscellaneous Notes * Telephone Encounter - Jazmine Anguiano MD - 11/07/2024 12:17 PM EDT Patient sent acutely to ED from OV last night. Anticipate admission. Can address inhalers at hosp discharge visit as regimen may change in hospital. * Telephone Encounter - Kaela Hsu OSA - 11/06/2024 11:17 AM EDT Pharmacy request a refill on Asmanex twisthaler 110MCG #30 Inhale 1 puff by mouth every evening The is medication is not covered by insurance Consider changing to covered alternative Asmanex HFA 50 MCG inhaler Couldn't find on med list Please clarify and refill documented in this encounter Plan of Treatment Upcoming Encounters Date Type Department Care Team (Late st Contact Info) Description 11/13/2024 10:30 AM EDT Office Visit Cardiology, [facility] [address] [place] [address] Justina Brower PA-C [address] [place] [address] 12/26/2024 10:00 AM EDT Office Visit Pharmacy, [facility] [address] [place] [address] [facility] [address] [place] [address] 05/01/2025 3:00 PM EDT Office Visit Cardiology, [facility] [address] [place] [address] Justina Brower PA-C [address] [place] [address] Health Maintenance Due Date Last Done Comments [...] filedocumented as of this encounter Care Teams Equipment Installation Professional Relationship Specialty Start Date End Date Jazmine Anguiano MD [address] [facility] [place] [address] PCP - General Internal Medicine 12/06/23 documented as of this encounter
--- OUTSIDE RECORDS SUMMARY | 2024-11-15 08:16 | External Medical Summary | Summary of Care ---
Author Name Unknown Organization [facility] Address [address] [facility] [place] [address] Phone [phone] Care Team Providers Care Web Consultant Name Role Phone Jazmine Anguiano MD Primary Care Provider Reason for Visit * Reason Onset Date Comments Advice 11/06/2024 Encounter Details Date Type Department Care Team (Late st Contact Info) Description 11/06/2024 Telephone Cardiology, [facility] [address] [place] [address] Justina Brower PA-C [address] [employer] [place] [address] Advice Allergies Active Allergy Reactions Criticality Noted [...] goal of less than 7.0% ([facility]) Use up to 4 times a day E11.9 1 Kit 06/09/20 21 Active Aspirin 81 MG Oral Tablet Delayed Release Take 1 Tablet by mouth in the morning. Active Mineola-3 Fish Oil 1200 MG Oral Capsule Take [...] Active CPAP every night at bedtime. Active Frbywnp-Owkssn-Dey ll Pertussis 5-2.5-18.5 LF-MCG/0.5 Suspension Prefilled Syringe [...] cardiomyopathy 10/03/2018 Coronary artery disease invo lving [place] coronary artery of [place] heart without angina pectoris 10/03/2018 documented as [...] mRNA, LNP-s, No Pre serve, 2-Dose Series ([employer]) 11/09/2020,10/19/2020 COVID-19, MRNA-LNP, PF, 50 M CG/0.5 [...] No 11/08/2023 Does the household have a [facility]? (Household - [...] encounter Miscellaneous Notes * Telephone Encounter - Justina Brower PA-C - 11/08/2024 8:26 AM EDT Patient is currently admitted to [facility] * Telephone Encounter - Arlen Lira LPN - 11/07/2024 1:51 PM EDT pcp * Telephone Encounter - Arlen Lira LPN - 11/06/2024 4:09 PM EDT Spoke with pt, he contacted his pcp and is on his way there now. * Telephone Encounter - Justina Brower PA-C - 11/06/2024 3:56 PM EDT Sounds like he has a lot going on and may be best to go to the ER for evaluation, tests/labs and then treatment of his current issues * Telephone Encounter - Arlen Lira LPN - 11/06/2024 2:13 PM EDT Pt calling back to see if someone can see him today. He is having swelling in feet/legs, excessive sob on extertion, has a cough. Has some itchiness going on on his torso has what looks like blood blisters all over. States he is going to call his pcp * Telephone Encounter - Rosalva Bobby OSA - 11/06/2024 2:08 PM EDT Pt calling back to speak to nurse changed medications and pt has swelling in feet and legs cough upper body itchy sob connected to fernandez * Telephone Encounter - Tatum Cota CMA - 11/06/2024 11:29 AM EDT Yes, pt aware. Just having symptoms and may need to be seen sooner. * Telephone Encounter - Andrews Fry OSA - 11/06/2024 10:58 AM EDT Cat, this patient has an appt next Wednesday, is he aware of it? Appt on: 11/13/2024 Status: Jermain Time: 10:30 AM Length: 30 Visit Type: RETURN CARDIOLOGY [[id number]] Reg Status: Verified Copay: $0.00 Provider: Justina Brower PA-C * Telephone Encounter - Tatum Cota CMA - 11/06/2024 10:48 AM EDT Patient states [facility]'s Amiodarone, added additional Metoprolol (150mg AM and 100mg PM). States he doesn't think these med changes are working. Swelling in feet and legs, having worsening SOB over the last few days. Pt checking HR and O2 via pulse ox. States readings are stable. O2 in high 90's. HR 70's-90's. Not checking weights, but is certain he has put on weight. Med list updated and checked. Pt reports not taking CPAP d/t cough. Sleeps propped with multiple pillows, still unable to tolerate CPAP d/t cough. Also reports itching in torso area. No visible rash but irritated skin. Encounter sent to family practice to see if they have any available appts. * Telephone Encounter - Justina Brower PA-C - 11/06/2024 9:33 AM EDT Can we have nursing please call patient and see all what is going on? Assess weight/symptoms/current meds? See if he is checking his Oxygen/HR/BP? PCP or cardio office visit recommended I'm not in the office today (I'm at [place]), so I have no appts * Telephone Encounter - Christin Jackson OSA - 11/06/2024 7:32 AM EDT Person calling: Sharad Relationship to patient: self Phone/Fax to return call: [phone] Reason for call(brief): advice Pharmacy: na Provider Name:Justina Brower Detailed message to office:SOB, cough, swelling in feet since about 6 or 7 days ago. Nothing available today that I can see. Patient would like to be seen today if possible. He also has been using cane to get around for extra balance documented in this encounter Plan of Treatment Upcoming Encounters Date Type Department Care Team (Late st Contact Info) Description 11/13/2024 10:30 AM EDT Office Visit Cardiology, [facility] [address] [place] [address] Justina Brower PA-C [address] [place] [address] 12/26/2024 10:00 AM EDT Office Visit Pharmacy, [facility] [address] [place] [address] [facility] [address] [place] [address] 05/01/2025 3:00 PM EDT Office Visit Cardiology, [facility] [address] [place] [address] Justina Brower PA-C [address] [place] [address] Health Maintenance Due Date Last Done Comments [...] as of this encounter Care Teams Web Consultant Relationship Specialty Start Date End Date Jazmine Anguiano MD [address] [place] [address] PCP - General Internal Medicine 12/06/23 documented as of this encounter
--- OUTSIDE RECORDS SUMMARY | 2024-11-15 08:16 | External Medical Summary ---
Author Name Unknown Address Unknown Organization [facility] [place] [address] [place] [address] Laboratory Report Ordering Provider Test Date Status TIERRA ALCAZAR 11/13/2024 11:18:30 Final Observation Date Value Abnormality Reference (Units ) Status BUN 11/13/2024 11:18:30 43 Above high normal 6- 20 (mg/dL) Final Creatinine 11/13/2024 11:18:30 2.5 Above high normal 0 .6-1.2 (mg/dL) Final Results rechecked Glomerular filtration rate/1.73 sq M.predicted [Volume Rate/Area] in Serum, Plasma or Blood by Creatinine-based formula (CKD-EPI) 11/13/2024 11:18:30 28 Below low normal >=60 (mL/min) [facility] eGFR is calculated based on the CKD-EPI 2020 equation. Sodium 11/13/2024 11:18:30 134 Below low normal 135 -146 (mmol/L) Final Potassium 11/13/2024 11:18:30 4.2 3.5-5.1 (m mol/L) Final Cl 11/13/2024 11:18:30 94 Below low normal 98- 107 (mmol/L) Final CO2 11/13/2024 11:18:30 25 22-32 (mmo l/L) Final Anion gap 11/13/2024 11:18:30 15 7-15 (mmol /L) Final Glucose 11/13/2024 11:18:30 224 Above high normal 70 -120 (mg/dL) Final Albumin 11/13/2024 11:18:30 3.2 Below low normal 3.8 -5.0 (g/dL) Final AST (Aspartate aminotransferase) 11/13/2024 11:18:30 21 10-50 (U/L) [facility] Alk Phos 11/13/2024 11:18:30 106 35-130 (U/ L) Final Bilirubin, Total 11/13/2024 11:18:30 0.9 <=1 .2 (mg/dL) Final Calcium 11/13/2024 11:18:30 9.2 8.4-10.2 ( mg/dL) Final Protein 11/13/2024 11:18:30 5.9 Below low normal 6.0 -8.3 (g/dL) Final ALT (Alanine aminotransferase) 11/13/2024 11:18:30 31 10-50 (U/L) Fidel sen Performing Location [facility] [place] [facility] [facility] [address]
--- OUTSIDE RECORDS SUMMARY | 2024-11-15 08:16 | External Medical Summary | Summary of Care ---
Author Name Unknown Organization [facility] Address [address] [facility] [place] [address] Phone [phone] Care Team Providers Care Dependency Case Manager Name Role Phone Jazmine Anguiano MD Primary Care Provider Reason for Visit * Reason Onset Date Comments Other 11/06/2024 Encounter Details Date Type Department Care Team (Late st Contact Info) Description 11/06/2024 Telephone Family Practice [facility] [address] [place] [address] Jazmine Anguiano MD [address] [place] [phone] Other Allergies Active Allergy Reactions Criticality Noted [...] Tablet by mouth in the morning. Active Deloit-3 Fish Oil 1200 MG Oral Capsule Take [...] Active CPAP every night at bedtime. Active Thgbufk-Oittnx-Fec ll Pertussis 5-2.5-18.5 LF-MCG/0.5 Suspension Prefilled Syringe [...] cardiomyopathy 10/03/2018 Coronary artery disease invo lving [place] coronary artery of [place] heart without angina pectoris 10/03/2018 documented as [...] mRNA, LNP-s, No Pre serve, 2-Dose Series ([employer]) 11/09/2020,10/19/2020 COVID-19, MRNA-LNP, PF, 50 M CG/0.5 [...] PM EDT Please request ED notes from [facility]. Anticipate was admitted. * Telephone Encounter - Erin Knowles LPN - 11/06/2024 6:07 PM EDT Called [facility] ER and told we are sending pt to them by car, driving him and we faxed over OV note as well. * Telephone Encounter - Jazmine Anguiano MD - 11/06/2024 5:40 PM EDT Please call triage nurse to let them know he is coming directly to the Emergency Department. Please fax my note. documented in this encounter Plan of Treatment Upcoming Encounters Date Type Department Care Team (Late st Contact Info) Description 11/13/2024 10:30 AM EDT Office Visit Cardiology, [facility] [address] [place] [address] Justina Brower PA-C [address] [place] [address] 12/26/2024 10:00 AM EDT [facility] [place] [address] [facility] [address] [place] [address] 05/01/2025 3:00 PM EDT Office Visit Cardiology, [facility] [address] [place] [address] Justina rBower PA-C [address] [place] [address] Health Maintenance Due Date Last Done Comments [...] filedocumented as of this encounter Care Teams Dependency Case Manager Relationship Specialty Start Date End Date Jazmine Anguiano MD [address] [place] [address] PCP - General Internal Medicine 12/06/23 documented as of this encounter
--- OUTSIDE RECORDS SUMMARY | 2024-11-15 08:17 | External Medical Summary | Summary of Care ---
Author Name Unknown Organization [facility] Address [address] [place] [address] Phone [phone] Care Team Providers Care Conservation Science Officer Name Role Phone Jazmine Anguiano MD Primary Care Provider Reason for Visit * Reason Comments Acute Pt here as walk in f or SOB, bilat leg edema was in hospital 2 weeks ago, med not working given symptoms. Has a rash on torso and itches on arms and shoulders, and cough and sleeps sitting up due to cough. Encounter Details Date Type Department Care Team (Latest Contact Info) Description 11/06/2024 4:20 PM EDT Office Visit Family [facility] [address] [id number] Jazmine Anguiano MD [address] [place] [address] Hypotension, unspecified hypotension type*; Bilateral lower extremity edema; Paroxysmal atrial fibrillation (HCC); Nonischemic cardiomyopathy (HCC) Allergies Active Allergy Reactions [...] goal of less than 7.0% ([facility]) Use up to 4 times a day E11.9 1 Kit 01/30/20 21 Active Aspirin 81 MG Oral Tablet Delayed Release Take 1 Tablet by mouth in the morning. Active [place]-3 Fish Oil 1200 MG Oral Capsule Take 1 Cap by mouth daily. Active Brimonidine Tartrate-Timolol 0.2-0.5 % Ophthalmic Solution (Combigan) Instill 1 Drop into both eyes in the morning and 1 Drop before bedtime. Active OneTouch Verio In Vitro Strip (Glucose Blood)Indications: Type 2 diabetes mellitus with hemoglobin A1c goal of less than 7.0% ([facility]) Use up to 4 times a day E11.9 400 Strip 3 07/04/20 22 Active sportif225Touch Delica Lancets 33G Use as directed 4 [...] Active CPAP every night at bedtime. Active Xnryyyf-Hddqax-Dpo ll Pertussis 5-2.5-18.5 LF-MCG/0.5 Suspension Prefilled Syringe [...] cardiomyopathy 10/03/2018 Coronary artery disease invo lving [place] coronary artery of [place] heart without angina pectoris 10/03/2018 documented as [...] mRNA, LNP-s, No Pre serve, 2-Dose Series (Slated) 11/09/2020,10/19/2020 COVID-19, MRNA-LNP, PF, 50 M CG/0.5 [...] Sign Reading Time Taken Comments Blood Pressure 83/67 11/06/2024 5:13 PM EDT Pulse 69 11/06/2024 5:13 PM EDT Temperature 36.6 C (97.8 F) 11/06/2024 5:13 PM ED T Respiratory Rate 20 11/06/2024 5:13 PM EDT Oxygen Saturation 96% 11/06/2024 5:13 PM EDT Inhaled Oxygen Concentration - - Weight 126.6 kg (279 lb) 11/06/2024 5:13 PM EDT Height - - Body Mass Index 43.03 10/12/2024 3:01 PM EST documented in this encounter Progress Notes * Jazmine Anguiano MD - 11/06/2024 5:20 PM EDT Images from the original note were not included. Subjective Sharad James is a 69 year old male that presents for Acute (Pt here as walk in for SOB, bilat legedema was in hospital 2 weeks ago, med not working given symptoms. Has a rash on torso and itches on arms and shoulders, and cough and sleeps sitting up due to cough.) History of Present Illness Past medical history notable for nonischemic cardiomyopathy with ICD, paroxysmal AFib, hypertension, sleep apnea, type 2 diabetes with a recent hospitalization notable for AFib with RVR where his medications were changed. Seen by me 2 weeks ago after that hospitalization, had been slowly improving,and regimens were continued. In the past 2 weeks has had a slow decline in overall function, with increasing lower extremity edema and increasing shortness of breath. This is all worsened in the past few days. is quite concerned. He has been able to tolerate the CPAP, but in the past few days has had to sleep sitting up and has been unable to wear the CPAP. Edema has moved up over the knees and has noticed some in his abdomen. He has not checked his blood pressure at home. He is not sure if his heart rate has increased with activity. notes that he has been sleeping most of the time during the day. He also reports a rash on his hands and shoulders, which is itchy and has led to excoriations from scratching. He is unsure if the spots are from scratching or if they developed independently. We had plan to recheck TSH in another 4 weeks because of recent amiodarone use. Current medications and allergies reviewed. Past medical history and problem list reviewed. Objective BP 83/67 | Pulse 69 | Temp 97.8 F (36.6 C) (Tympanic) | Resp 20 | Wt 279 lb (126.6 kg) | SpO2 96% | BMI 43.03 kg/m | BSA 2.46 m BP Readings from Last 3 Encounters: 11/06/24 83/67 10/23/24 122/74 10/12/24 120/76 Wt Readings from Last 3 Encounters: 11/06/24 279 lb (126.6 kg) 10/23/24 273 lb (123.8 kg) 10/12/24 276 lb 9.6 oz (125.5 kg) Physical Exam Vitals and nursing note reviewed. Constitutional: General: He is not in acute distress. Appearance: He is ill-appearing. Comments: Pale, looks weak Cardiovascular: Rate and Rhythm: Tachycardia present. Rhythm irregular. Pulmonary: Comments: Not in acute respiratory distress, however at times during the visit he pauses for extra breaths. No rales at the bases. Coughs with deep breaths. Abdominal: Palpations: Abdomen is soft. There is no mass. Tenderness: There is no abdominal tenderness. There is no guarding or rebound. Hernia: No hernia is present. Musculoskeletal: Right lower leg: Edema present. Left lower leg: Edema present. Comments: Edema has progressed from 2 weeks ago, notable above the knee and some mild edema in the lower abdomen. Skin: Comments: Excoriations over arms and hands bilaterally Neurological: Mental Status: He is alert. Results reviewed : Lipid Panel, Hemoglobin A1C, CBC, and BMP Assessment and Plan Assessment & Plan Dyspnea on exertion with worsening lower extremity edema and soft blood pressures Acute decline with significantly low blood pressure, concerning due to cardiac conditions and fluidretention. - able to drive him directly to the emergency room for further evaluation and management. Hypotension, unspecified hypotension type (Primary) Bilateral lower extremity edema Paroxysmal atrial fibrillation (HCC) Nonischemic cardiomyopathy (HCC) Wrap-Up I spent a total of 20-29 minutes (exact time 21 mins) on the date of service in preparation, delivery, and documentation of the care provided to Sharad James excluding any time spent in the performance of separately billed services. Text in this note was generated using an ambient documentation service. I discussed the use of a device to record and summarize our discussion today. All persons present during the encounter consented to its use. documented in this encounter Plan of Treatment Upcoming Encounters Date Type Department Care Team (Late st Contact Info) Description 11/13/2024 10:30 AM EDT Office Visit Cardiology, [facility] [address] [place] [address] Justina Brower PA-C [address] [place] [address] 12/26/2024 10:00 AM EDT Office Visit Pharmacy, [facility] [address] [place] [address] [facility] [address] [place] [id number] 05/01/2025 3:00 PM EDT Office Visit Cardiology, [facility] [address] [place] [address] Justina Brower PA-C [address] [place] [address] Health Maintenance Due Date Last Done Comments [...] as of this encounter Visit Diagnoses Diagnosis Hypotension, unspecified hypotension type- Primary Bilateral lower extremity edema Edema Paroxysmal atrial fibrillation (HCC) Atrial fibrillation Nonischemic cardiomyopathy (HCC) Other primary cardiomyopathies documented in this encounter Care Teams Conservation Science Officer Relationship Specialty Start Date End Date Jazmine Anguiano MD [address] [place] [id number] PCP - General Internal Medicine 12/06/23 documented as of this encounter"
--- OUTSIDE RECORDS SUMMARY | 2024-11-15 08:17 | External Medical Summary | Summary of Care ---
Author Name Unknown Organization [facility] Address [address] [facility] [place] [address] Phone [phone] Care Team Providers Care Equipment Mechanic Specialist Name Role Phone Jazmine Anguiano MD [...] 11/06/2024 4:20 PM EDT Office Visit Family [facility] [address] [address] Jazmine Anguiano MD [address] [address] Hypotension, unspecified hypotension type*; Bilateral lower extremity [...] Tablet by mouth in the morning. Active [place]-3 Fish Oil 1200 MG Oral Capsule Take [...] E11.9 400 Strip 3 07/04/20 22 Active PonoMusicTouch Delica Lancets 33G Use as directed 4 [...] Active CPAP every night at bedtime. Active Oysizux-Nfxkbk-Fqa ll Pertussis 5-2.5-18.5 LF-MCG/0.5 Suspension Prefilled Syringe [...] cardiomyopathy 10/03/2018 Coronary artery disease invo lving [place] coronary artery of [place] heart without angina pectoris 10/03/2018 documented as [...] mRNA, LNP-s, No Pre serve, 2-Dose Series ([employer]) 11/09/2020,10/19/2020 COVID-19, MRNA-LNP, PF, 50 M CG/0.5 [...] Cardiology, [facility] [address] [place] [address] Justina Brower PA-C [address] [place] [address] 12/26/2024 10:00 AM EDT Office Visit Pharmacy, [facility] [address] [place] [address] [facility] [address] [place] [phone] 05/01/2025 3:00 PM EDT Office Visit Cardiology, [facility] [address] [place] [address] Justina Brower PA-C [address] [place] [address] Health Maintenance Due Date Last Done Comments [...] cardiomyopathies documented in this encounter Care Teams Equipment Mechanic Specialist Relationship Specialty Start Date End Date Jazmine Anguiano MD [address] [place] [phone] PCP - General Internal Medicine 12/06/23 documented as of this encounter"
[2024-11-15 08:28] LABS: BUN Creatinine Ratio 26.5 (10-20); Calcium 9.1 mg/dl (8.6-10.3); Potassium 3.5 mmol/L (3.5-5.1)
[2024-11-15 08:42] LABS: Partial Thromboplastin Ratio 1.3; Partial Thromboplastin Time 35 Seconds (21-31)
[2024-11-15 08:49] LABS: Thyroid Stimulating Hormone 0.094 uIu/ml (0.300-4.500); Troponin I High Sensitivity 51.1 pg/ml (0-20)
--- NOTE | 2024-11-15 09:12 | Cardiology Consultation ---
Date of Consultation November 15, 2024 Assessment & Plan (1) FRED (acute kidney injury): (2) Acute UTI: (3) Severe sepsis: (4) Acute systolic CHF (congestive heart failure): (5) Atrial fibrillation with rapid ventricular response: Plan Patient admitted for abnormal labs as an outpatient with elevated WBC at 25 and creatinine of 2.5 with intermittent hypotension, suggesting acute sepsis. On arrival to ER found to have acute UTI with E.Coli. Blood cultures pending Started on antibiotics. WBC trending downward this morning FRED on admission, likely due to UTI and sepsis with hypotension intermittently over the weekend. Creatinine trending downward today. Currently holding Entresto, spironolactone, torsemide (diuretics) Monitor labs closely. Due to hypotension and elevated creatinine, metoprolol dose was reduced on admission from 150 mg BID to 25 mg BID Digoxin on hold. Dig level was low on admission. He has known persistent afib. Amiodarone was discontinued in Sep due to persistent afib and hyperthyroidism. Ongoing rate control strategy recommended. HR's are trending higher. Increase metoprolol to 50 mg BID. May need to resume digoxin, as this aided his HR's after initiation last week. Chronic HFrEF - currently appears mildly volume overloaded on exam. Currently holding diuretics given FRED. Weight continues to trend downward but will need to resume diuretics within the next 1-2 days. EP appt is being arranged as an outpatient to discuss BIV upgrade to his single lead ICD given widened QRS and recurrent CHF symptoms. Further recommendations pending evaluation and discussion with Dr. Lua Will follow. Case discussed with Dr. Lua I spent a total of 60 minutes on the date of service in preparation, delivery, and documentation of the care provided to this patient, excluding any time spent in the performance of separately billed services. Justina Brower PA-C Department of Cardiology, [facility] This chart was completed in part utilizing Speech Voice Recognition Software. Grammatical errors, random word insertions, pronoun errors, and incomplete sentences are an occasional consequence of this system due to software limitations, ambient noise, and hardware issues. Any formal questions or concerns about the content, text, or information contained within the body of this dictation should be directly addressed to the provider for clarification. Supervising Physician Co-Signing Physician Notes Attending attestation: Case reviewed with the advanced practitioner. I have personally performed a history and physical examination on the patient. I have reviewed the advanced practitioner's documentation on the date of service referenced in note, and I agree with, and take responsibility for the plan of care. Ed Lua DO History of Present Illness Reason for Consultation: CHF; Cardiac Med Management Requesting Physician: Manuel Hospitalist Attending Physician: Dr. Lua History of Present Illness Patient is a 69 year old male known to [facility] Cardiology admitted to [facility] due to elevated creatinine and elevated WBC with associated altered mental status, lethargy and hypotension concerning for sepsis after abnormal outpatient labs. History includes: 1. Non ischemic cardiomyopathy with history of afib and VT; PVC's 2. Minor CAD 3. Primary prevention ICD -single lead 4. Statin intolerance, starting PCSK9 inhib 5. JOSE DE JESUS 6. Persistent afib, dating back to Aug 2024, amio discontinued due to hyperthyroidism 7. HFrEF with 2 recent admissions with CHF exacerbations Recently admitted 2 x - First in Sep 2024 for palpitations, found to have recurrent afib RVR in setting of hyperthyroidism. Amiodarone was discontinued and ongoing rate control strategy recommended. Metoprolol increased to 100 mg BID. Recurrent admission last week, October 2024 for worsening SOB, edema, findings consistent with Acute on chronic HFrEF and afib with elevated rates. He was diuresed over the course of 5 days with weight loss of about 5-10 lbs. Torsemide 20 mg daily prescribed on discharge with higher dose metoprolol succinate 150 mg BID and digoxin. He had f/u in our office on Wednesday to recheck volume status. Over the weekend, patient with worsening lethargy (per ), fatigue, and intermittent hypotension. Reports difficulty staying awake. He reported his weight continued to trend downward during the weekend. Labs were drawn Wednesday afternoon which demonstrated FRED with creatinine of 2.5 (was 1.2 on Wednesday at discharge) and WBC at 25 (was normal upon discharge) Due to symptoms of lethargy, fatigue, hypotension, and lab abnormalities concerning for sepsis/FRED, he was sent to the ER yesterday for further evaluation and work up. He had held entresto, torsemide, spironolactone in the meantime for 1 day after labs demonstrated FRED. Upon arrival, creatinine was trending downward and WBC remains elevated. Diagnosed with UTI - E.Coli. Blood cultures pending. At time of consult, patient resting in bed. Feeling "ok". Generally feeling weak and washed out. no chest pain. Still with mild edema, but improved from last week. notes SOB with ambulation. No chest pain. Allergies Allergy/AdvReac Type Severity Reaction Status Date / Time Qbiozhe-GYU-FwP Reductase AdvReac Intermediate Joint Pain Verified 11/14/24 19:23 Inhibitor Home Medications Medication Instructions Recorded Confirmed Type aspirin 81 mg tablet,delayed 81 mg PO QAM 01/05/21 11/14/24 History release coQ10 (ubiquinol) 100 mg capsule 100 mg PO QAM 01/05/21 11/14/24 History multivitamin 1 tab PO QAM 01/05/21 11/14/24 History omega 3-zsr-vbr-fish oil 1,200 mg 1 cap PO HS 01/05/21 11/14/24 History (144 mg-216 mg) capsule (Fish Oil) cholecalciferol (vitamin D3) 50 50 mcg PO QAM 05/15/21 11/14/24 History mcg (2,000 unit) tablet (Vitamin D3) latanoprost 0.005 % eye drops 1 drp OPB HS 05/15/21 11/14/24 History metformin 500 mg tablet 500 mg PO BIDM 05/15/21 11/14/24 History omeprazole 20 mg capsule,delayed 20 mg PO QAM 05/15/21 11/14/24 History release brimonidine 0.2 %-timolol 0.5 % 1 drp OPR BID 12/22/22 11/14/24 History eye drops rivaroxaban 20 mg tablet (Xarelto) 20 mg PO QDD 12/22/22 11/14/24 History benzonatate 100 mg capsule 100 mg PO TID PRN Cough 10/16/24 11/14/24 History ciclopirox 8 % topical solution 1 applic topical HS 10/16/24 11/14/24 History evolocumab 140 mg/mL subcutaneous 140 mg subcut .EVERY 14 DAYS 10/16/24 11/14/24 History pen injector (Halima Cooper) semaglutide 2 mg/dose (8 mg/3 mL) 2 mg subcut WK 10/16/24 11/14/24 History subcutaneous pen injector (Ozempic) digoxin 125 mcg (0.125 mg) tablet 0.125 mg PO DAILY@1600 #30 tabs 11/10/24 11/14/24 Rx (Digitek) metoprolol succinate 50 mg 150 mg (3 x 50 mg) PO BID #180 tabs 11/10/24 11/14/24 Rx tablet,extended release 24 hr Patient History Medical History Osteoarthritis Diabetes mellitus, type 2 On anticoagulant therapy xarelto daily Glaucoma SARS-CoV-2 positive hx of x2--04/2021 and 08/2021--no symptoms now Atrial fibrillation on xarelton/metoprolol--follows with Dr. Aldridge Acute HFrEF (heart failure with reduced ejection fraction) SOB (shortness of breath) JOSE DE JESUS (obstructive sleep apnea) cpap NICM (nonischemic cardiomyopathy) Surgical History Status post hardware removal History of open reduction and internal fixation (ORIF) procedure left ankle fx repair--hardware removed History of removal of cyst off knuckle History of prostate biopsy benign History of colonoscopy History of wisdom tooth extraction History of cardiac cath 2012 @ [place], [place]--no stents S/P ICD (internal cardiac defibrillator) procedure placed 04/26/19 Dr. Guevara @ [facility]--medtronic History of total right hip arthroplasty History of total left hip arthroplasty Family History Mother Stroke Father Coronary heart disease Other No family history of adverse response to anesthesia Social History Smoking Status: Former smoker Second Hand Exposure: No; Do You Dip or Chew Tobacco: No; Tobacco Cessation Education Requested by Patient: No Hx Alcohol Use: No Hx Substance Use: No Preferred Language: Kazakh Communication Ability: Effective Fire Prevention Research Engineer Required: No Beliefs That Will Affect Care: None Current Living Situation: Spouse Other Information That Helps Us Care for You: No Feels Safe at Home: Yes Safety Concerns: Feels Safe At This Time Assistive Devices: CPAP Review of Systems Review of Systems: All systems reviewed & are unremarkable except as noted in HPI & below Physical Exam Constitutional: + ill appearing; no acute distress Neck: + thick neck Respiratory: no labored breathing Auscultation: + diminished lung sounds; no crackles and no rales Cardiovascular: Rate/Rhythm: + tachycardic and + irregularly irregular Heart Sounds: normal S1 and normal S2; no murmur Vessels: + JVD Extremities: + edema (1-2+ pretibial and ankle edema) Gastrointestinal (Abdomen): normal bowel sounds, soft, nontender, no hepatosplenomegaly Musculoskeletal: no cyanosis or clubbing, extremities motor strength 5/5 Results & Data Vital Signs (Past 12 Hours) Vital Signs Temp Pulse Pulse Resp BP Pulse Ox O2 Del Method 11/15/24 07:31 36.8 C 87 18 117/78 96 Room Air 11/15/24 03:52 36.5 C 99 H 20 120/73 97 Room Air 11/15/24 01:04 106 H 11/15/24 00:35 Room Air 11/14/24 23:24 111 H 11/14/24 23:15 36.4 C L 97 H 22 113/81 94 Room Air 11/14/24 22:12 92 H 18 113/76 98 Room Air 11/14/24 22:10 96 H 11/14/24 21:00 101 H 20 110/74 96 Room Air Laboratory Results Cardiac Enzymes 11/14/24 11/14/24 11/15/24 Range/Units 17:08 22:43 07:00 AST 19 (13-39) U/L Troponin I High Sens 39.1 H 50.6 H* D 51.1 H* (0-20) pg/ml Coagulation 11/14/24 11/15/24 Range/Units 17:08 07:00 PT 14.7 H (9.0-12.0) Seconds APTT 41 H 35 H (21-31) Seconds CBC 11/14/24 11/14/24 11/15/24 Range/Units 17:08 22:43 07:00 WBC 14.89 H 9.72 (4.8-10.8) K/ul RBC 5.20 4.48 L (4.70-6.10) M/uL Hgb 11.7 L 11.9 L 10.3 L (14.0-18.0) g/dl Hct 38.5 L 38.6 L 32.5 L (42.0-52.0) % Plt Count 294 272 (130-400) K/uL Neut # (Auto) 13.19 H 7.69 H (1.40-6.50) K/uL Lymph # (Auto) 0.52 L 0.72 L (1.20-3.40) K/uL Nance # (Auto) 0.98 H 1.18 H (0.11-0.59) K/uL Eos # (Auto) 0.05 0.04 (0.00-0.50) K/uL Baso # (Auto) 0.03 0.03 (0.00-0.20) K/uL Comprehensive Metabolic Panel 11/14/24 11/15/24 Range/Units 17:08 07:00 Sodium 130 L 134 L (136-145) mmol/L Potassium 4.0 3.5 (3.5-5.1) mmol/L Chloride 94 L 95 L (98-107) mmol/L Carbon Dioxide 28 25 (21-32) mmol/L BUN 49 H 41 H (6-23) mg/dl Creatinine 1.95 H 1.55 H D (0.6-1.4) mg/dl Glucose 241 H 182 H (70-99(Fasting)) mg/dl Calcium 9.4 9.1 (8.6-10.3) mg/dl AST 19 (13-39) U/L ALT 24 (7-52) U/L Alkaline Phosphatase 117 H (34-104) U/L Total Protein 7.1 (6.0-8.3) gm/dl Albumin 3.6 (3.4-5.0) gm/dl Intake and Output 11/14/24 11/15/24 11/15/24 22:59 06:59 14:59 Intake Total 50 / 850 800 / 850 100 / 100 Output Total 450 / 450 Balance 50 / 400 350 / 400 100 / 100 Intake: IV 50 / 550 500 / 550 100 / 100 Albumin 25% 25 gm In 100 ml @ 200 / 200 50 mls/hr IV ONE ONE Rx#: [id number] Magnesium Sulfate / D5w 1 gm In 100 / 100 100 ml @ 50 mls/hr IV ONE ONE Rx#:[id number] Piperacillin/Tazobactam 4.5 gm 100 / 100 100 / 100 In 100 ml @ 25 mls/hr IV Q8H [facility] Rx#:[id number] cefTRIAXone SODIUM 2,000 mg In 50 / 50 50 ml @ 100 mls/hr IV NOW STA Rx#:[id number] metroNIDAZOLE 500 mg In 100 ml 100 / 100 @ 100 mls/hr IV NOW STA Rx#: [id number] Oral 300 / 300 Output: Urine 450 / 450 Other: Weight 131.3 kg 121.7 kg Weight Measurement Method Built in Bedscale Standing Scale Diagnostic Findings Telemetry reviewed: Persistent afib with borderline elevated rates ranging 100- 110 EKG on admission: Afib with controlled rates, PVC LAD LBBB no change from previous Chest xray report reviewed: IMPRESSION: 1. There is a pacing device on the left with a lead running to the right side of the heart. The cardiac silhouette is borderline enlarged. 2. Soft tissue artifact from large body habitus. There is mild vascular congestion without overt edema or acute focal infiltrate. Prior outpatient labs: 11/13/24 11:18 SODIUM: 134 (L) POTASSIUM: 4.2 CHLORIDE: 94 (L) CO2: 25 BUN: 43 (H) CREATININE: 2.5 (H) EGFR: 28 (L) ANION GAP: 15 GLUCOSE: 224 (H) CALCIUM: 9.2 Magnesium: 1.9 Protein: 5.9 (L) Estimated Average Glucose: 203 (H) Hemoglobin A1C: 8.7 (H) TSH: <0.01 (L) T4, Free: 3.5 (H) CBC: Rpt ! WBC: 25.14 (H) RBC: 4.85 HGB: 11.3 (L) HCT: 36.5 (L) MCV: 75.3 MCH: 23.3 MCHC: 31.0 RDW: 18.3 PLT: 267 MPV: 10.1 Absolute Neutrophils: 20.87 (H) Absolute Lymphocytes: 1.26 Absolute Monocytes: 2.01 (H) Medications Administered Current Inpatient Medications Benzonatate (Benzonatate 100 Mg Capsule) 100 mg PO TID PRN PRN Reason: Cough Stop: 12/14/24 22:12 Last Admin: 11/15/24 08:04 Dose: 100 mg Brimonidine Tartrate (Brimonidine Tartrate 0.2% 5ml) 1 drops OPR BID MEJIA Stop: 12/14/24 22:14 Last Admin: 11/15/24 07:45 Dose: 1 drops Dextrose (Dextrose 50% 50 Ml Syringe) 25 - 50 ml IV UD PRN; Protocol PRN Reason: Hypoglycemia Protocol Stop: 12/14/24 23:16 Glucagon (Glucagon For Inj 1 Mg Vial) 1 mg SQ UD PRN; Protocol PRN Reason: Hypoglycemia Protocol Stop: 12/14/24 23:16 Glucose (Glucose 40% Gel 15 Gm Tube) 15 - 30 gm PO UD PRN; Protocol PRN Reason: Hypoglycemia Protocol Stop: 12/14/24 23:16 Glucose (Glucose 10 Tab/Tube) 4 - 8 tab PO UD PRN; Protocol PRN Reason: Hypoglycemia Protocol Stop: 12/14/24 23:16 Piperacillin Sod/Tazobactam Sod (Zosyn) 4.5 gm in 100 mls @ 25 mls/hr IV Q8H MEJIA; Protocol Stop: 11/25/24 03:59 Last Infusion: 11/15/24 08:32 Dose: Infused Insulin Aspart (Insulin Aspart Per Unit Charge) 0 units SC ACHS MEJIA Stop: 12/14/24 23:16 Last Admin: 11/15/24 08:04 Dose: 5 units Insulin Glargine (Lantus Per Unit Charge) 5 units SQ DAILY MEJIA Stop: 12/15/24 08:59 Last Admin: 11/15/24 08:04 Dose: 5 units Latanoprost (Latanoprost 0.005% Op Soln 2.5 Ml Btl) 1 drops OPB HS [facility] Stop: 12/14/24 22:14 Last Admin: 11/14/24 23:38 Dose: 1 drops Metoprolol Succinate (Metoprolol Succ 50mg Ext Rel Tab) 50 mg PO BID MEJIA Stop: 12/15/24 20:59 Metoprolol Succinate (Metoprolol Succ 25mg Ext Rel Tab) 25 mg PO ONE ONE Stop: 11/15/24 11:46 Miscellaneous (Carbohydrates For Hypoglycemia ) 15 - 30 gm PO UD PRN PRN Reason: Hypoglycemia Protocol Stop: 12/14/24 23:16 Multivitamins (Multivitamin Tab) 1 tab PO QAM MEJIA Stop: 12/15/24 08:59 Last Admin: 11/15/24 07:44 Dose: 1 tab Pantoprazole Sodium (Pantoprazole 40 Mg Tab) 40 mg PO QAM MEJIA Stop: 12/15/24 08:59 Last Admin: 11/15/24 07:43 Dose: 40 mg Timolol Maleate (Timolol Maleate 0.5% Op Soln 5 Ml Btl) 1 drops OPR BID MEJIA Stop: 12/14/24 22:14 Last Admin: 11/15/24 07:45 Dose: 1 drops
--- NOTE | 2024-11-15 09:52 | Electrocardiogram Report ---
Test Reason : Blood Pressure : */* mmHG Vent. Rate : 94 BPM Atrial Rate : * BPM P-R Int : * ms QRS Dur : 126 ms QT Int : 350 ms P-R-T Axes : * -78 85 degrees QTcB Int : 437 ms Atrial fibrillation with premature ventricular or aberrantly conducted complexes Left axis deviation Left bundle branch block Abnormal ECG When compared with ECG of 06-Nov-2024 18:30, Left bundle branch block is now Present Borderline criteria for Anterior infarct are no longer Present Borderline criteria for Anterolateral infarct are no longer Present Confirmed by Felipe Wild ([id number]) on 11/15/2024 9:52:10 AM Referred By: Justina Brower Confirmed By: Felipe Wild
--- NOTE | 2024-11-15 10:26 | CT Scan Report ---
Exam(s): CT ABDOMEN + PELVIS Without Contrast EXAM: CT Abdomen and Pelvis Without Intravenous Contrast CLINICAL HISTORY: Reason for exam: fuentes. TECHNIQUE: Axial computed tomography images of the abdomen and pelvis without intravenous contrast. CTDI is 26.74 mGy and DLP is 1271.98 mGy-cm. Automated exposure control was utilized for the study. A dose lowering technique was utilized adhering to the principles of ALARA. COMPARISON: No relevant prior studies available. FINDINGS: Lung bases: Unremarkable. No mass. No consolidation. ABDOMEN: Liver: Unremarkable. Gallbladder and bile ducts: Unremarkable. No calcified stones. No ductal dilation. Pancreas: Unremarkable. No ductal dilation. Spleen: Unremarkable. No splenomegaly. Adrenals: Unremarkable. No mass. Kidneys and ureters: There are 2 right and 3 left nonobstructive 2 3 mm calyceal calculi within the kidneys. No hydronephrosis or ureterolithiasis is identified. Stomach and bowel: See below. PELVIS: Appendix: The appendix is normal. Bowel loops are nondilated. There is diverticulosis throughout the colon without signs of acute diverticulitis per no acute inflammatory changes are seen involving the bowel. Bladder: See below. Reproductive: Unremarkable as visualized. ABDOMEN and PELVIS: Intraperitoneal space: Unremarkable. No free air. No significant fluid collection. Bones/joints: Metallic artifact from bilateral hip arthroplasties. No acute fracture or dislocation is seen. Mild to moderate multilevel degenerative changes throughout the spine. No acute fracture or subluxation is seen. Soft tissues: Slight hazy edema in the pelvis surrounding the decompressed urinary bladder. There is slight urinary bladder wall thickening. Vasculature: Unremarkable. No abdominal aortic aneurysm. Lymph nodes: Unremarkable. No enlarged lymph nodes. IMPRESSION: 1. The appendix is normal. Bowel loops are nondilated. There is diverticulosis throughout the colon without signs of acute diverticulitis per no acute inflammatory changes are seen involving the bowel. 2. Slight hazy edema in the pelvis surrounding the decompressed urinary bladder. There is slight urinary bladder wall thickening. Consider cystitis. 3. There are 2 right and 3 left nonobstructive 2-3 mm calyceal calculi within the kidneys. No hydronephrosis or ureterolithiasis is identified. Electronically signed by: Dada Amaya MD 11/14/24 21:15 PM
--- OUTSIDE RECORDS SUMMARY | 2024-11-15 10:48 | External Medical Summary | Summary of Care ---
Author Name Unknown Organization [facility] Address [address] [place] [address] Phone [phone] Care Team Providers Care Instrument Lens Generator Name Role Phone Jazmine Anguiano MD Primary Care Provider Reason for Visit * Reason Onset Date Comments Test Results 11/13/2024 Encounter Details Date Type Department Care Team (Late st Contact Info) Description 11/13/2024 Telephone Cardiology, [facility] [address] [place] [address] Justina Brower PA-C [address] [place] [address] Test Results Allergies Active Allergy Reactions Criticality [...] Tablet by mouth in the morning. Active [place]-3 Fish Oil 1200 MG Oral Capsule Take [...] Active CPAP every night at bedtime. Active Ackhndi-Ragfrq-Ldm ll Pertussis 5-2.5-18.5 LF-MCG/0.5 Suspension Prefilled Syringe [...] cardiomyopathy 10/03/2018 Coronary artery disease invo lving habematolel coronary artery of habematolel heart without angina pectoris 10/03/2018 documented as [...] mRNA, LNP-s, No Pre serve, 2-Dose Series ([employer]) 11/09/2020,10/19/2020 COVID-19, MRNA-LNP, PF, 50 M CG/0.5 [...] encounter Miscellaneous Notes * Telephone Encounter - Cari Melara LPN - 11/14/2024 1:19 PM EDT Labs and note printed faxed to triage at [facility] * Telephone Encounter - Justina Brower PA-C - 11/14/2024 12:56 PM EDT I was filling out patients disability forms today at lunch and happened to notice other labs that were done yesterday (and not sent to me). I'm concerned with his WBC is very very high. This was normal last Wednesday when he was at [place]. This is concerning for infection. His leg did not look infectious to me yesterday, but I'm concerned with his recent labs and creatinine with FRED and his low BP Concerning for sepsis. Called patient. Discussed with and patient is concerned with his lethargy, sleeping, fogginess and "not himself". Patient sent to the ER for lab abnormalities and further evaluation of his FRED and WBC. * Telephone Encounter - Arlen Lira LPN - 11/13/2024 3:14 PM EDT Mychart message sent * Telephone Encounter - Arlen [...] Description 11/16/2024 3:00 PM EDT Office Visit [facility] [address] [place] [address] Melissa Kelley CRNP [address] [place] [address] 11/30/2024 10:00 AM EDT Office Visit Cardiology, [facility] [address] [place] [phone] Michael Villegas DO [address] [place] [address] 12/26/2024 10:00 AM EDT Office Visit Pharmacy, [facility] [address] [place] [address] [facility] [address] [place] [address] 05/01/2025 3:00 PM EDT Office Visit Cardiology, [facility] [address] [place] [phone] Justina Brower PA-C [address] [place] [address] Scheduled Orders Name Type Priority Associated Diagnoses [...] ureter documented in this encounter Care Teams Instrument Lens Generator Relationship Specialty Start Date End Date Jazmine Anguiano MD [address] [facility] [place] [address] PCP - General Internal Medicine 12/06/23 documented as of this encounter
--- OUTSIDE RECORDS SUMMARY | 2024-11-15 10:48 | External Medical Summary | Summary of Care ---
Author Name Unknown Organization [facility] Address [address] [facility] [place] [address] Phone [phone] Care Team Providers Care Tentering Machine Feeder Name Role Phone Jazmine Anguiano MD Primary Care Provider Reason for Visit * Reason Onset Date Comments Test Results 11/13/2024 Encounter Details Date Type Department Care Team (Late st Contact Info) Description 11/13/2024 Telephone Cardiology, [facility] [address] [place] [address] Justina Brower PA-C [address] [place] [id number] Test Results Allergies Active Allergy Reactions Criticality [...] Tablet by mouth in the morning. Active [place]-3 Fish Oil 1200 MG Oral Capsule Take [...] Active CPAP every night at bedtime. Active Yoeladh-Lozvso-Hmq ll Pertussis 5-2.5-18.5 LF-MCG/0.5 Suspension Prefilled Syringe [...] cardiomyopathy 10/03/2018 Coronary artery disease invo lving [place]omba shoshone coronary artery of [place]one heart without angina pectoris 10/03/2018 documented [...] mRNA, LNP-s, No Pre serve, 2-Dose Series ([employer]) 11/09/2020,10/19/2020 COVID-19, MRNA-LNP, PF, 50 M CG/0.5 [...] and note printed faxed to triage at [facility] * Telephone Encounter - Justina Brower PA-C - 11/14/2024 12:56 PM EDT I was filling out patients disability forms today at lunch and happened to notice other labs that were done yesterday (and not sent to me). I'm concerned with his WBC is very very high. This was normal last Wednesday when he was at [place]. This is concerning for infection. His leg [...] Description 11/16/2024 3:00 PM EDT Office Visit [facility] [address] [place] [address] Melissa Kelley CRNP [address] [place] [address] 11/30/2024 10:00 AM EDT Office Visit Cardiology, [facility] [address] [place] [phone] Michael Villegas DO [address] [place] [address] 12/26/2024 10:00 AM EDT Office Visit Pharmacy, [facility] [address] [place] [address] [facility] [address] [place] [address] 05/01/2025 3:00 PM EDT Office Visit Cardiology, [facility] [address] [place] [phone] Justina Brower PA-C [address] [place] [address] Scheduled Orders Name Type Priority Associated Diagnoses [...] ureter documented in this encounter Care Teams Tentering Machine Feeder Relationship Specialty Start Date End Date Jazmine Anguiano MD [address] [facility] [place] [address] PCP - General Internal Medicine 12/06/23 documented as of this encounter
--- OUTSIDE RECORDS SUMMARY | 2024-11-15 10:48 | External Medical Summary | Summary of Care ---
Author Name Unknown Organization [facility] Address [address] [facility] [place] [address] Phone [phone] Care Team Providers Care Warehouse Supervisor Name Role Phone Jazmine Anguiano MD Primary Care Provider Reason for Visit * Reason Onset Date Comments Test Results 11/13/2024 Encounter Details Date Type Department Care Team (Late st Contact Info) Description 11/13/2024 Telephone Cardiology, [facility] [address] [place] [address] Justina Brower PA-C [address] [place] [address] Test Results Allergies Active Allergy Reactions Criticality [...] hemoglobin A1c goal of less than 7.0% ([facility]) Use up to 4 times a day E11.9 1 Kit 01/30/20 21 Active Aspirin 81 MG Oral Tablet Delayed Release Take 1 Tablet by mouth in the morning. Active Knox-3 Fish Oil 1200 MG Oral Capsule Take [...] Active CPAP every night at bedtime. Active Trjmeyl-Nprgif-Jht ll Pertussis 5-2.5-18.5 LF-MCG/0.5 Suspension Prefilled Syringe [...] cardiomyopathy 10/03/2018 Coronary artery disease invo lving [place] coronary artery of [place] heart without angina pectoris 10/03/2018 documented as [...] mRNA, LNP-s, No Pre serve, 2-Dose Series ([employer]) 11/09/2020,10/19/2020 COVID-19, MRNA-LNP, PF, 50 M CG/0.5 [...] and note printed faxed to triage at [facility] * Telephone Encounter - Justina Brower PA-C - 11/14/2024 12:56 PM EDT I was filling out patients disability forms today at lunch and happened to notice other labs that were done yesterday (and not sent to me). I'm concerned with his WBC is very very high. This was normal last Wednesday when [place] was at [place]. This is concerning for infection. His leg [...] Description 11/16/2024 3:00 PM EDT Office Visit [facility] [address] [place] [address] Melissa Kelley CRNP [address] [place] [address] 11/30/2024 10:00 AM EDT Office Visit Cardiology, [facility] [address] [place] [phone] Michael Villegas DO [address] [place] [address] 12/26/2024 10:00 AM EDT Office Visit Pharmacy, [facility] [address] [place] [address] [facility] [address] [place] [address] 05/01/2025 3:00 PM EDT Office Visit Cardiology, [facility] [address] [place] [phone] Justina Brower PA-C [address] [place] [address] Scheduled Orders Name Type Priority Associated Diagnoses [...] ureter documented in this encounter Care Teams Warehouse Supervisor Relationship Specialty Start Date End Date Jazmine Anguiano MD 132 [facility] [place] [address] PCP - General Internal Medicine 12/06/23 documented as of this encounter
--- OUTSIDE RECORDS SUMMARY | 2024-11-15 10:48 | External Medical Summary | Summary of Care ---
Author Name Unknown Organization [facility] Address [address] [facility] [place] [address] Phone [phone] Care Team Providers Care Customer Care Assistant Name Role Phone Jazmine Anguiano MD Primary Care Provider Reason for Referral * Evaluate & Treat - Unlimited Visits (Within 10 days (routine)) - Authorized Specialty Diagnoses / Procedures Referred By Contact Referred To Contact Cardiac Electrophysiology / Cardiology Diagnoses Nonischemic cardiomyopathy (HCC) Permanent atrial fibrillation (HCC) Justina Brower PA-C [address] [place] [address] Phone: tel:[phone] fax:[phone] Referral ID Status Reason Start Date Expiration Date Visits Requested Visits Authorized [id number] Authorized Specialty Services Required 11/13/2024 999 999 [...] 11/13/2024 10:30 AM EDT Office Visit Cardiology, [facility] [address] [place] [address] Justina Brower PA-C [address] [place] [address] Nonischemic cardiomyopathy (HCC)*; Persistent atrial fibrillation (HCC); [...] A1c goal of less than 7.0% ([facility]) Use up to 4 times a day E11.9 1 Kit 021 Active Aspirin 81 MG Oral Tablet Delayed Release Take 1 Tablet by mouth in the morning. Active [place]-3 Fish Oil 1200 MG Oral Capsule Take 1 Cap by mouth daily. Active Brimonidine Tartrate-Timolol 0.2-0.5 % Ophthalmic Solution (Combigan) Instill 1 Drop into both eyes every evening. Active OneTouch Verio In Vitro Strip (Glucose Blood)Indications :Type 2 diabetes mellitus with hemoglobin A1c goal of less than 7.0% ([facility]) Use up to 4 times a [...] Active CPAP every night at bedtime. Active Jgrlfrk-Qvxgtq-Bo ell Pertussis 5-2.5-18.5 LF-MCG/0.5 Suspension Prefilled Syringe [...] Oral Tablet (Rivaroxaban)Chloe cations:Atrial fibrillation, unspecified type ([facility]) TAKE 1 TABLET BY MOUTH EVERY DAY [...] cardiomyopathy 10/03/2018 Coronary artery disease invo lving [place] coronary artery of [place] heart without angina pectoris 10/03/2018 documented as [...] mRNA, LNP-s, No Pre serve, 2-Dose Series ([employer]) 11/09/2020,10/19/2020 COVID-19, MRNA-LNP, PF, 50 M CG/0.5 [...] Nonischemic cardiomyopathy (HCC) Coronary artery disease involving [place] coronary artery of [place] heart without angina pectoris Essential hypertension with [...] 1 Tablet by mouth in the morning. [place]-3 Fish Oil 1200 MG Oral Capsule Take [...] Take 1 Tablet by mouth every evening. [employer] w/Device Kit Use up to 4 times a day E11.9 1 Kit 0 OneTouch Verio In Vitro Strip (Glucose Blood) Use up to 4 times a day E11.9 400 Strip 3 OneTouch Delica Lancets 33G Use as directed 4 times a day as needed for Hyperglycemia (high sugar) or Hypoglycemia (low sugar). 400 Each 3 Rhsxchn-Bhjjby-Ybgup Pertussis 5-2.5-18.5 LF-MCG/0.5 Suspension Prefilled Syringe ([employer]) [...] of possible afib, non sustained. VS 99.4%; FEATHER RENOVATOR 0.6% Impression: 69 year old male 1. [...] This chart was completed in part utilizing [employer] Speech Voice Recognition Software. Grammatical errors, random [...] Reason for Visit: Hospital DC Interim Hospitalization(s): [facility] 10/17 and 11/06-11/10 Problems/Concerns: States nothing new since [facility] Chest Pain/SOB: denies [facility] [...] 3:00 PM EDT Office Visit Family Practice [facility] [address] [place] [address] Melissa Kelley CRNP [address] [place] [address] 11/30/2024 10:00 AM EDT Office Visit Cardiology, [facility] [address] [phone] Michael Villegas DO [address] [place] [address] 12/26/2024 10:00 AM EDT Office Visit Pharmacy, [facility] [address] [place] [address] [facility] [address] [place] [address] 05/01/2025 3:00 PM EDT Office Visit Cardiology, [facility] [address] [place] [phone] Justina Brower PA-C [address] [place] [address] Scheduled Referrals Name Type Priority Associated Diagnoses [...] mg/dL 11/13/2024 1:13 PM EDT LAB[facility]ORY [facility] 5710 CREATININE 2.5(H) 0.6 - 1.2 mg/dL 11/13/2024 1:13 PM EDT [facility] 5710 Comment:Results rechecked EGFR 28(L) >=60 mL/min 11/13/2024 1:13 PM EDT [facility]ORY [facility] 5710 Comment:eGFR is calculated b ased on the CKD-EPI 2020 equation. SODIUM 134(L) 135 - 146 mmol/L 11/13/2024 1:13 PM EDT [facility]ORY [facility] 57-10 POTASSIUM 4.2 3.5 - 5.1 mmol/L 11/13/2024 1:13 PM EDT [facility] 5710 CHLORIDE 94(L) 98 - 107 mmol/L 11/13/2024 1:13 PM EDT [facility] 5710 CO2 25 22 - 32 mmol/L 11/13/2024 1:13 PM EDT [facility]ORY [facility] 57-10 ANION GAP 15 7 - 15 mmol/L 11/13/2024 1:13 PM EDT [facility] 5710 GLUCOSE 224(H) 70 - 120 mg/dL 11/13/2024 1:13 PM EDT [facility] 57-10 Albumin 3.2(L) 3.8 - 5.0 g/dL 11/13/2024 1:13 PM EDT [facility] 57-10 AST 21 10 - 50 U/L 11/13/2024 1:13 PM EDT [facility] 57-10 Alkaline Phosphatase 106 35 - 130 U/L 11/13/2024 1:13 PM EDT [facility] 5710 Bilirubin, Total 0.9 <=1.2 mg/dL 11/13/2024 1:13 PM EDT [facility] 57-10 CALCIUM 9.2 8.4 - 10.2 mg/dL 11/13/2024 1:13 PM EDT [facility] 5710 Protein 5.9(L) 6.0 - 8.3 g/dL 11/13/2024 1:13 PM EDT LAB[facility]ORY [place] 57-10 ALT 31 10 - 50 U/L 11/13/2024 1:13 PM EDT [facility] [place] 57-10 Blood Venous blood specimen / Unknown Venipuncture / Unknown 11/13/2024 11:18 AM EDT 11/13/2024 11:18 AM EDT Justina Brower PA-C LAB BLOOD ORDERABLES F inal Result LAB[facility]ATORY [facility] 57-[address] [place] [id number] * DIGOXIN LEVEL (11/13/2024 11:18 AM EDT) Digoxin Level 1.1 0.5 - 1.1 ng/mL 11/13/2024 10:[address] [facility] Blood Venous blood specimen / Unknown Venipuncture / Unknown 11/13/2024 11:18 AM EDT 11/13/2024 11:18 AM EDT Narrative [facility]ATORY [facility] - 11/13/2024 10:42 PM EDT Recommended trough therapeutic ranges: 0.5 to 0.8 for heart failure 0.5 to 1.1 for atrial fibrillation Justina Brower PA-C LAB BLOOD ORDERABLES F inal Result LABORATORY [facility] [address] [place] [address] * (ABNORMAL) TSH WITH FREE T4 IF INDICATED (11/13/2024 11:18 AM EDT) TSH <0.01(L) 0.27 - 4.20 uIU/mL 11/14/2024 12:[address] [facility] Blood Venous blood specimen / Unknown Venipuncture / Unknown 11/13/2024 11:18 AM EDT 11/13/2024 11:18 AM EDT Justina Brower PA-C LAB BLOOD ORDERABLES F inal Result LAB[facility]ATORY 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
--- OUTSIDE RECORDS SUMMARY | 2024-11-15 10:48 | External Medical Summary | Summary of Care ---
Author Name Unknown Organization [facility] Address [address] [facility] [place] [address] Phone [phone] Care Team Providers Care Software Controls Engineer Name Role Phone Jazmine Anguiano MD Primary Care Provider Reason for Visit * Reason Onset Date Comments Test Results 11/13/2024 Encounter Details Date Type Department Care Team (Late st Contact Info) Description 11/13/2024 Telephone Cardiology, [facility] [address] [place] [address] Justina Brower PA-C [address] [place] [address] Test Results Allergies Active Allergy Reactions Criticality [...] hemoglobin A1c goal of less than 7.0% ([facility]) Use up to 4 times a day E11.9 1 Kit 01/30/20 21 Active Aspirin 81 MG Oral Tablet Delayed Release Take 1 Tablet by mouth in the morning. Active [place]-3 Fish Oil 1200 MG Oral Capsule Take [...] Active CPAP every night at bedtime. Active Zryujxw-Nfytma-Yaq ll Pertussis 5-2.5-18.5 LF-MCG/0.5 Suspension Prefilled Syringe [...] cardiomyopathy 10/03/2018 Coronary artery disease invo lving [place] coronary artery of [place] heart without angina pectoris 10/03/2018 documented as [...] mRNA, LNP-s, No Pre serve, 2-Dose Series ([employer]) 11/09/2020,10/19/2020 COVID-19, MRNA-LNP, PF, 50 M CG/0.5 [...] and note printed faxed to triage at [facility] * Telephone Encounter - Justina Brower PA-C [...] Description 11/16/2024 3:00 PM EDT Office Visit [facility] [address] [place] [address] Melissa Kelley CRNP [address] [place] [address] 11/30/2024 10:00 AM EDT Office Visit Cardiology, [facility] [address] [place] [phone] Michael Villegas DO [address] [place] [address] 12/26/2024 10:00 AM EDT Office Visit Pharmacy, [facility] [address] [place] [address] [facility] [address] [place] [address] 05/01/2025 3:00 PM EDT Office Visit Cardiology, [facility] [address] [place] [phone] Justina Brower PA-C [address] [place] [address] Scheduled Orders Name Type Priority Associated Diagnoses [...] ureter documented in this encounter Care Teams Software Controls Engineer Relationship Specialty Start Date End Date Jazmine Anguiano MD [address] [facility] [place] [address] PCP - General Internal Medicine 12/06/23 documented as of this encounter
--- OUTSIDE RECORDS SUMMARY | 2024-11-15 10:49 | External Medical Summary | Summary of Care ---
Author Name Unknown Organization [facility] Address [address] [facility] [place] [address] Phone [phone] Care Team Providers Care Senior Program Analyst Name Role Phone Jazmine Anguiano MD Primary Care Provider Encounter Details Date Type Department Care Team (Late st Contact Info) Description 11/06/2024 Result Scan Unspecified Department <No scans attached> [...] goal of less than 7.0% ([facility]) Use up to 4 times a day E11.9 1 Kit 01/30/20 21 Active Aspirin 81 MG Oral Tablet Delayed Release Take 1 Tablet by mouth in the morning. Active Wilder-3 Fish Oil 1200 MG Oral Capsule Take [...] Active CPAP every night at bedtime. Active Vrgwrzd-Gxfdsk-Xgq ll Pertussis 5-2.5-18.5 LF-MCG/0.5 Suspension Prefilled Syringe [...] 25 Active Benzonatate 100 MG Oral Capsule ([employer])Indications :URTI (acute upper respiratory infection),Acute cough Take [...] Tablet before bedtime. 180 Tablet 3 10/24/19 Active Spironolactone 25 MG Oral Tablet (Aldactone)Indicat ions:Nonischemic cardiomyopathy (HCC) TAKE 1/2 TABLET BY MOUTH IN THE MORNING 45 Tablet 10/28/19 Active documented as of this encounter (statuses [...] mRNA, LNP-s, No Pre serve, 2-Dose Series ([employer]) 11/09/2020,10/19/2020 COVID-19, MRNA-LNP, PF, 50 M CG/0.5 [...] 3:00 PM EDT Office Visit Family Practice [facility] [address] [address] Melissa Kelley CRNP [address] [place] [address] 11/30/2024 10:00 AM EDT Office Visit Cardiology, [facility] [address] [address] [phone] Michael Villegas DO [address] [place] [address] 12/26/2024 10:00 AM EDT Office Visit Pharmacy, [facility] [address] [place] [address] [facility] [address] [address] 05/01/2025 3:00 PM EDT Office Visit Cardiology, [facility] [address] [phone] Justina Brower PA-C [address] [place] [address] Health Maintenance Due Date Last Done Comments [...] Procedure Name Priority Date/Time Associated Diagnosis Comments EKG SCANNED RESULT 11/06/2024 documented in this encounter Results * EKG SCANNED RESULT (11/06/2024) 11/06/2024 us No Physician Data Unknown EKG Final Result documented in this encounter Care Teams Senior Program Analyst Relationship Specialty Start Date End Date Jazmine Anguiano MD 132 [facility] [place] [address] PCP - General Internal Medicine 12/06/23 documented as of this encounter
[2024-11-15] MEDS: METOPROLOL SUCC 25MG EXT REL TAB PO ONE (11:55)
[2024-11-15 12:08] LABS: T4 Free Thyroxine 2.95 ng/dl (0.61-1.60)
--- NOTE | 2024-11-15 12:31 | Hospitalist Progress Note ---
Date of Service November 15, 2024 Assessment & Plan (1) Severe sepsis: Plan: Severe sepsis SIRS plus ARF on CKD Secondary to complicated UTI Rule out C. difficile diarrhea Flagyl 1 dose given sepsis criteria, oral vancomycin if stool C. difficile positive stool posit. for c. diff gene but negative for toxin, rest of the panel negative. will start po vanco as pt on abx and in increased risk. Pt is still having diarrhea. UTI urine cultx posit for E.coli follow sensitivities blood cultx - negat. so far Pt started on zosyn on admission, will cont. for now follow cultx FRED on CKD Cr improved cont. to closely monitor BMP am Atrial fibrillation with rapid ventricular response secondary to illness, zeynep ent on Xarelto chronic systolic heart failure secondary to nonischemic cardiomyopathy (EF 25- 29%, TTE 2024) sp ICD, equivocal volume status, congestion on x-ray, patient intravascularly dry Cardiology consult Re: Cardiac medication management Discussed w/ cardiology Currently holding Entresto, spironolactone, torsemide (diuretics) Due to hypotension and elevated creatinine, metoprolol dose now 50 mg BID Digoxin on hold. Dig level was low on admission. Currently holding diuretics given FRED. Weight continues to trend downward but will need to resume diuretics within the next 1-2 days. EP appt is being arranged as an outpatient to discuss BIV upgrade to his single lead ICD given widened QRS and recurrent CHF symptoms. Painless LGIB in the setting of NOAC rx, H&H currently stable at baseline hemoglobin Hold Eliquis given painless LGIB, clear liquid diet for now follow H&H, transfuse PRBC if hemoglobin less than 8 and or for symptomatic anemia GI consult if with progressive bleeding 11/15 discussed with pt today -Bleed seemed minimal and now resolved. cont. to closely monitor Chronic: Valvular heart disease (moderate MR/TR) aortic root enlargement nonocclusive CAD as per records HTN, borderline BP hyperlipidemia/statin intolerance, patient on Repatha JOSE DE JESUS on CPAP DM2 on oral medications, suboptimal control as well recent hemoglobin A1c of 8.7 this month , Basal insulin, ISS BG goal 110-140, carb count coverage Persistent hyperthyroidism, past history of amiodarone Rx past tobacco abuse DVT prophylaxis. SCDs while Eliquis on hold due to LGIB Full code Patient's - Ms. Eva James, contact #[phone]. Admission and Anticipated Discharge Date Admission Date: November 14, 2024 Subjective Pt seen in follow up Recently admitted for CHF Now treated for UTI Currently lying in bed in NAD Overall reports feeling better, denies any urinary symptoms reports having some diarrhea denies chest pain or shortness of breath Review of Systems Review of Systems: All systems reviewed & are unremarkable except as noted in Subjective Physical Exam Physical Exam: GENERAL: Comfortable, pleasant, morbidly obese SKIN: Pallor, warm HEENT: NC/AT, pale palpebral conjunctivae, no ptosis, dry buccal mucosa NECK : Supple CHEST : Decreased breath sounds, no tenderness HEART : irregular, systolic murmur ABDOMEN: Some distention, nontender EXTREMITIES : Bilateral LE swelling, no LE tenderness, moves extremities NEUROLOGIC : Coherent, no facial asymmetry, no other gross focality Results & Data Results & Data Vital Signs (Past 12 Hours) Vital Signs Temp Pulse Pulse Resp BP Pulse Ox O2 Del Method 11/15/24 11:32 36.7 C 86 18 101/68 95 Room Air 11/15/24 10:49 Room Air 11/15/24 07:31 36.8 C 87 18 117/78 96 Room Air 11/15/24 03:52 36.5 C 99 H 20 120/73 97 Room Air 11/15/24 01:04 106 H 11/15/24 00:35 Room Air Laboratory Results 11/15/24 11/15/24 11/15/24 Range/Units 11:07 07:09 07:00 WBC 9.72 (4.8-10.8) K/ul RBC 4.48 L (4.70-6.10) M/uL Hgb 10.3 L (14.0-18.0) g/dl Hct 32.5 L (42.0-52.0) % MCV 72.5 L (80.0-100.0) fL MCH 23.0 L (25.0-34.0) pg MCHC 31.7 L (32.0-36.0) g/dL RDW Std Deviation 46.4 H (36.4-46.3) fL RDW Coeff of Jose 17.8 H (11.5-14.5) % Plt Count 272 (130-400) K/uL MPV 10.4 (9.4-12.4) fL Immature Gran % (Auto) 0.6 % Neut % (Auto) 79.2 % Lymph % (Auto) 7.4 % [place] % (Auto) 12.1 % Eos % (Auto) 0.4 % Baso % (Auto) 0.3 % Neut # (Auto) 7.69 H (1.40-6.50) K/uL Lymph # (Auto) 0.72 L (1.20-3.40) K/uL [place] # (Auto) 1.18 H (0.11-0.59) K/uL Eos # (Auto) 0.04 (0.00-0.50) K/uL Baso # (Auto) 0.03 (0.00-0.20) K/uL Immature Gran # (Auto) 0.06 (0.01-0.20) K/uL PT (9.0-12.0) Seconds INR (0.9-1.1) APTT 35 H (21-31) Seconds PTT Ratio 1.3 Sodium 134 L (136-145) mmol/L Potassium 3.5 (3.5-5.1) mmol/L Chloride 95 L (98-107) mmol/L Carbon Dioxide 25 (21-32) mmol/L Anion Gap 14 H (3-11) BUN 41 H (6-23) mg/dl Creatinine 1.55 H D (0.6-1.4) mg/dl Est Cr Clr Drug Dosing 57.0 eGFR 48.45 BUN/Creatinine Ratio 26.5 H (10-20) Glucose 182 H (70-99(Fasting)) mg/dl POC Glucose 213 H 199 H (70-99) mg/dl Osmolality (280-300) mOsm/kg Lactate (0.4-2.0) mmol/L Calcium 9.1 (8.6-10.3) mg/dl Magnesium (1.7-2.4) mg/dl Total Bilirubin (0.2-1.0) mg/dl AST (13-39) U/L ALT (7-52) U/L Alkaline Phosphatase (34-104) U/L Troponin I High Sens 51.1 H* (0-20) pg/ml Total Protein (6.0-8.3) gm/dl Albumin (3.4-5.0) gm/dl Globulin (2.5-4.0) gm/dl Albumin/Globulin Ratio (0.9-2) TSH 0.094 L (0.300-4.500) uIu/ml Free T4 2.95 H (0.61-1.60) ng/dl Total T3 Pending Urine Color Urine Appearance (Clear) Urine pH (4.5-7.5) Ur Specific [place] (1.000-1.030) Urine Protein (Negative) Urine Glucose (UA) (Negative) Urine Ketones (Negative) Urine Blood (Negative) Urine Nitrite (Negative) Urine Bilirubin (Negative) Urine Urobilinogen (Negative) Ur Leukocyte Esterase (Negative) Urine WBC (Auto) (0-5) /hpf Urine RBC (Auto) (0-2) /hpf U Hyaline Cast (Auto) (0-2) /lpf U Epithel Cells (Auto) (0-2) /hpf Urine Bacteria (Auto) (None Seen) Urine Osmolality (500-800) mOsm/kg Ur Random Sodium mmol/L Stl C. cayetanensis PCR (NotDetected) Stool Rotavirus A PCR (NotDetected) Stl Adenov F 40/41 PCR (NotDetected) Stool Astrovirus (PCR) (NotDetected) Stool Campylobacter PCR (NotDetected) Stl C. diff Tox B Gene (Neg) Stl C.difficile Tox A&B (Negative) Stool Cryptosporidium PCR (NotDetected) Stl E.coli Shiga Tox PCR (NotDetected) Stl Enterotoxigenic E PCR (NotDetected) Stool EPEC (PCR) (NotDetected) Stool EAEC (PCR) (NotDetected) Stl E. histolytica PCR (NotDetected) Stool Giardia Lamblia PCR (NotDetected) Stool Salmonella PCR (NotDetected) Stool Sapovirus (PCR) (NotDetected) Stl P. shigelloides PCR (NotDetected) Stl Shigella/EIEC PCR (NotDetected) St Y.enterocolitica PCR (NotDetected) Stool Vibrio (PCR) (NotDetected) Stl Vibrio cholerae PCR (NotDetected) Stl Norovirus GI/GII PCR (NotDetected) Digoxin (0.8-2.0) ng/ml Adenovirus (PCR) (NotDetected) B. pertussis DNA (PCR) (NotDetected) B.parapertussis DNA PCR (NotDetected) C. pneumoniae DNA (PCR) (NotDetected) Coronavirus OC43 (PCR) (NotDetected) Coronavirus HKU1 (PCR) (NotDetected) Coronavirus 229E (PCR) (NotDetected) SARS-CoV-2 (PCR) (NotDetected) Coronavirus NL63 (PCR) (NotDetected) Human Metapneumovir PCR (NotDetected) Influenza Type A (PCR) (NotDetected) Influenza Type B (PCR) (NotDetected) M. pneumoniae (PCR) (NotDetected) Parainfluenza 1 (PCR) (NotDetected) Parainfluenza 2 (PCR) (NotDetected) Parainfluenza 3 (PCR) (NotDetected) Parainfluenza 4 (PCR) (NotDetected) RSV (PCR) (NotDetected) Entero/Rhino (PCR) (NotDetected) Blood Type Antibody Screen 11/15/24 11/15/24 11/14/24 Range/Units 03:10 00:55 23:23 WBC (4.8-10.8) K/ul RBC (4.70-6.10) M/uL Hgb (14.0-18.0) g/dl Hct (42.0-52.0) % MCV (80.0-100.0) fL MCH (25.0-34.0) pg MCHC (32.0-36.0) g/dL RDW Std Deviation (36.4-46.3) fL RDW Coeff of Jose (11.5-14.5) % Plt Count (130-400) K/uL MPV (9.4-12.4) fL Immature Gran % (Auto) % Neut % (Auto) % Lymph % (Auto) % [place] % (Auto) % Eos % (Auto) % Baso % (Auto) % Neut # (Auto) (1.40-6.50) K/uL Lymph # (Auto) (1.20-3.40) K/uL [place] # (Auto) (0.11-0.59) K/uL Eos # (Auto) (0.00-0.50) K/uL Baso # (Auto) (0.00-0.20) K/uL Immature Gran # (Auto) (0.01-0.20) K/uL PT (9.0-12.0) Seconds INR (0.9-1.1) APTT (21-31) Seconds PTT Ratio Sodium (136-145) mmol/L Potassium (3.5-5.1) mmol/L Chloride (98-107) mmol/L Carbon Dioxide (21-32) mmol/L Anion Gap (3-11) BUN (6-23) mg/dl Creatinine (0.6-1.4) mg/dl Est Cr Clr Drug Dosing eGFR BUN/Creatinine Ratio (10-20) Glucose (70-99(Fasting)) mg/dl POC Glucose 206 H (70-99) mg/dl Osmolality (280-300) mOsm/kg Lactate (0.4-2.0) mmol/L Calcium (8.6-10.3) mg/dl Magnesium (1.7-2.4) mg/dl Total Bilirubin (0.2-1.0) mg/dl AST (13-39) U/L ALT (7-52) U/L Alkaline Phosphatase (34-104) U/L Troponin I High Sens (0-20) pg/ml Total Protein (6.0-8.3) gm/dl Albumin (3.4-5.0) gm/dl Globulin (2.5-4.0) gm/dl Albumin/Globulin Ratio (0.9-2) TSH (0.300-4.500) uIu/ml Free T4 (0.61-1.60) ng/dl Total T3 Urine Color Urine Appearance (Clear) Urine pH (4.5-7.5) Ur Specific [place] (1.000-1.030) Urine Protein (Negative) Urine Glucose (UA) (Negative) Urine Ketones (Negative) Urine Blood (Negative) Urine Nitrite (Negative) Urine Bilirubin (Negative) Urine Urobilinogen (Negative) Ur Leukocyte Esterase (Negative) Urine WBC (Auto) (0-5) /hpf Urine RBC (Auto) (0-2) /hpf U Hyaline Cast (Auto) (0-2) /lpf U Epithel Cells (Auto) (0-2) /hpf Urine Bacteria (Auto) (None Seen) Urine Osmolality 505 (500-800) mOsm/kg Ur Random Sodium 41 mmol/L Stl C. cayetanensis PCR (NotDetected) Stool Rotavirus A PCR (NotDetected) Stl Adenov F 40/41 PCR (NotDetected) Stool Astrovirus (PCR) (NotDetected) Stool Campylobacter PCR (NotDetected) Stl C. diff Tox B Gene Positive Cdiff Gene H (Neg) Stl C.difficile Tox A&B Negative Cdiff Toxin (Negative) Stool Cryptosporidium PCR (NotDetected) Stl E.coli Shiga Tox PCR (NotDetected) Stl Enterotoxigenic E PCR (NotDetected) Stool EPEC (PCR) (NotDetected) Stool EAEC (PCR) (NotDetected) Stl E. histolytica PCR (NotDetected) Stool Giardia Lamblia PCR (NotDetected) Stool Salmonella PCR (NotDetected) Stool Sapovirus (PCR) (NotDetected) Stl P. shigelloides PCR (NotDetected) Stl Shigella/EIEC PCR (NotDetected) St Y.enterocolitica PCR (NotDetected) Stool Vibrio (PCR) (NotDetected) Stl Vibrio cholerae PCR (NotDetected) Stl Norovirus GI/GII PCR (NotDetected) Digoxin (0.8-2.0) ng/ml Adenovirus (PCR) (NotDetected) B. pertussis DNA (PCR) (NotDetected) B.parapertussis DNA PCR (NotDetected) C. pneumoniae DNA (PCR) (NotDetected) Coronavirus OC43 (PCR) (NotDetected) Coronavirus HKU1 (PCR) (NotDetected) Coronavirus 229E (PCR) (NotDetected) SARS-CoV-2 (PCR) (NotDetected) Coronavirus NL63 (PCR) (NotDetected) Human Metapneumovir PCR (NotDetected) Influenza Type A (PCR) (NotDetected) Influenza Type B (PCR) (NotDetected) M. pneumoniae (PCR) (NotDetected) Parainfluenza 1 (PCR) (NotDetected) Parainfluenza 2 (PCR) (NotDetected) Parainfluenza 3 (PCR) (NotDetected) Parainfluenza 4 (PCR) (NotDetected) RSV (PCR) (NotDetected) Entero/Rhino (PCR) (NotDetected) Blood Type Antibody Screen 11/14/24 11/14/24 11/14/24 Range/Units 22:43 19:41 18:33 WBC (4.8-10.8) K/ul RBC (4.70-6.10) M/uL Hgb 11.9 L (14.0-18.0) g/dl Hct 38.6 L (42.0-52.0) % MCV (80.0-100.0) fL MCH (25.0-34.0) pg MCHC (32.0-36.0) g/dL RDW Std Deviation (36.4-46.3) fL RDW Coeff of Jose (11.5-14.5) % Plt Count (130-400) K/uL MPV (9.4-12.4) fL Immature Gran % (Auto) % Neut % (Auto) % Lymph % (Auto) % [place] % (Auto) % Eos % (Auto) % Baso % (Auto) % Neut # (Auto) (1.40-6.50) K/uL Lymph # (Auto) (1.20-3.40) K/uL [place] # (Auto) (0.11-0.59) K/uL Eos # (Auto) (0.00-0.50) K/uL Baso # (Auto) (0.00-0.20) K/uL Immature Gran # (Auto) (0.01-0.20) K/uL PT (9.0-12.0) Seconds INR (0.9-1.1) APTT (21-31) Seconds PTT Ratio Sodium (136-145) mmol/L Potassium (3.5-5.1) mmol/L Chloride (98-107) mmol/L Carbon Dioxide (21-32) mmol/L Anion Gap (3-11) BUN (6-23) mg/dl Creatinine (0.6-1.4) mg/dl Est Cr Clr Drug Dosing eGFR BUN/Creatinine Ratio (10-20) Glucose (70-99(Fasting)) mg/dl POC Glucose (70-99) mg/dl Osmolality 299 (280-300) mOsm/kg Lactate 1.8 (0.4-2.0) mmol/L Calcium (8.6-10.3) mg/dl Magnesium (1.7-2.4) mg/dl Total Bilirubin (0.2-1.0) mg/dl AST (13-39) U/L ALT (7-52) U/L Alkaline Phosphatase (34-104) U/L Troponin I High Sens 50.6 H* D (0-20) pg/ml Total Protein (6.0-8.3) gm/dl Albumin (3.4-5.0) gm/dl Globulin (2.5-4.0) gm/dl Albumin/Globulin Ratio (0.9-2) TSH (0.300-4.500) uIu/ml Free T4 (0.61-1.60) ng/dl Total T3 Urine Color Urine Appearance (Clear) Urine pH (4.5-7.5) Ur Specific [place] (1.000-1.030) Urine Protein (Negative) Urine Glucose (UA) (Negative) Urine Ketones (Negative) Urine Blood (Negative) Urine Nitrite (Negative) Urine Bilirubin (Negative) Urine Urobilinogen (Negative) Ur Leukocyte Esterase (Negative) Urine WBC (Auto) (0-5) /hpf Urine RBC (Auto) (0-2) /hpf U Hyaline Cast (Auto) (0-2) /lpf U Epithel Cells (Auto) (0-2) /hpf Urine Bacteria (Auto) (None Seen) Urine Osmolality (500-800) mOsm/kg Ur Random Sodium mmol/L Stl C. cayetanensis PCR Not Detected (NotDetected) Stool Rotavirus A PCR Not Detected (NotDetected) Stl Adenov F 40/41 PCR Not Detected (NotDetected) Stool Astrovirus (PCR) Not Detected (NotDetected) Stool Campylobacter PCR Not Detected (NotDetected) Stl C. diff Tox B Gene (Neg) Stl C.difficile Tox A&B (Negative) Stool Cryptosporidium PCR Not Detected (NotDetected) Stl E.coli Shiga Tox PCR Not Detected (NotDetected) Stl Enterotoxigenic E PCR Not Detected (NotDetected) Stool EPEC (PCR) Not Detected (NotDetected) Stool EAEC (PCR) Not Detected (NotDetected) Stl E. histolytica PCR Not Detected (NotDetected) Stool Giardia Lamblia PCR Not Detected (NotDetected) Stool Salmonella PCR Not Detected (NotDetected) Stool Sapovirus (PCR) Not Detected (NotDetected) Stl P. shigelloides PCR Not Detected (NotDetected) Stl Shigella/EIEC PCR Not Detected (NotDetected) St Y.enterocolitica PCR Not Detected (NotDetected) Stool Vibrio (PCR) Not Detected (NotDetected) Stl Vibrio cholerae PCR Not Detected (NotDetected) Stl Norovirus GI/GII PCR Not Detected (NotDetected) Digoxin 0.6 L (0.8-2.0) ng/ml Adenovirus (PCR) (NotDetected) B. pertussis DNA (PCR) (NotDetected) B.parapertussis DNA PCR (NotDetected) C. pneumoniae DNA (PCR) (NotDetected) Coronavirus OC43 (PCR) (NotDetected) Coronavirus HKU1 (PCR) (NotDetected) Coronavirus 229E (PCR) (NotDetected) SARS-CoV-2 (PCR) (NotDetected) Coronavirus NL63 (PCR) (NotDetected) Human Metapneumovir PCR (NotDetected) Influenza Type A (PCR) (NotDetected) Influenza Type B (PCR) (NotDetected) M. pneumoniae (PCR) (NotDetected) Parainfluenza 1 (PCR) (NotDetected) Parainfluenza 2 (PCR) (NotDetected) Parainfluenza 3 (PCR) (NotDetected) Parainfluenza 4 (PCR) (NotDetected) RSV (PCR) (NotDetected) Entero/Rhino (PCR) (NotDetected) Blood Type A Positive Antibody Screen NEGATIVE 11/14/24 11/14/24 Range/Units 17:08 16:50 WBC 14.89 H (4.8-10.8) K/ul RBC 5.20 (4.70-6.10) M/uL Hgb 11.7 L (14.0-18.0) g/dl Hct 38.5 L (42.0-52.0) % MCV 74.0 L (80.0-100.0) fL MCH 22.5 L (25.0-34.0) pg MCHC 30.4 L (32.0-36.0) g/dL RDW Std Deviation 47.0 H (36.4-46.3) fL RDW Coeff of Jose 18.1 H (11.5-14.5) % Plt Count 294 (130-400) K/uL MPV 10.1 (9.4-12.4) fL Immature Gran % (Auto) 0.8 % Neut % (Auto) 88.6 % Lymph % (Auto) 3.5 % [place] % (Auto) 6.6 % Eos % (Auto) 0.3 % Baso % (Auto) 0.2 % Neut # (Auto) 13.19 H (1.40-6.50) K/uL Lymph # (Auto) 0.52 L (1.20-3.40) K/uL [place] # (Auto) 0.98 H (0.11-0.59) K/uL Eos # (Auto) 0.05 (0.00-0.50) K/uL Baso # (Auto) 0.03 (0.00-0.20) K/uL Immature Gran # (Auto) 0.12 (0.01-0.20) K/uL PT 14.7 H (9.0-12.0) Seconds INR 1.4 H (0.9-1.1) APTT 41 H (21-31) Seconds PTT Ratio 1.5 Sodium 130 L (136-145) mmol/L Potassium 4.0 (3.5-5.1) mmol/L Chloride 94 L (98-107) mmol/L Carbon Dioxide 28 (21-32) mmol/L Anion Gap 8 (3-11) BUN 49 H (6-23) mg/dl Creatinine 1.95 H (0.6-1.4) mg/dl Est Cr Clr Drug Dosing Not Reportable eGFR 36.78 BUN/Creatinine Ratio 25.1 H (10-20) Glucose 241 H (70-99(Fasting)) mg/dl POC Glucose (70-99) mg/dl Osmolality (280-300) mOsm/kg Lactate (0.4-2.0) mmol/L Calcium 9.4 (8.6-10.3) mg/dl Magnesium 1.9 (1.7-2.4) mg/dl Total Bilirubin 0.8 (0.2-1.0) mg/dl AST 19 (13-39) U/L ALT 24 (7-52) U/L Alkaline Phosphatase 117 H (34-104) U/L Troponin I High Sens 39.1 H (0-20) pg/ml Total Protein 7.1 (6.0-8.3) gm/dl Albumin 3.6 (3.4-5.0) gm/dl Globulin 3.5 (2.5-4.0) gm/dl Albumin/Globulin Ratio 1.0 (0.9-2) TSH (0.300-4.500) uIu/ml Free T4 (0.61-1.60) ng/dl Total T3 Urine Color Yellow Urine Appearance Turbid A (Clear) Urine pH 5.5 (4.5-7.5) Ur Specific [place] 1.015 (1.000-1.030) Urine Protein 1+ H (Negative) Urine Glucose (UA) Negative (Negative) Urine Ketones Negative (Negative) Urine Blood 3+ H (Negative) Urine Nitrite Negative (Negative) Urine Bilirubin Negative (Negative) Urine Urobilinogen Negative (Negative) Ur Leukocyte Esterase 3+ H (Negative) Urine WBC (Auto) >50 H (0-5) /hpf Urine RBC (Auto) >20 H (0-2) /hpf U Hyaline Cast (Auto) 6-10 H (0-2) /lpf U Epithel Cells (Auto) 0-2 (0-2) /hpf Urine Bacteria (Auto) 4+ H (None Seen) Urine Osmolality (500-800) mOsm/kg Ur Random Sodium mmol/L Stl C. cayetanensis PCR (NotDetected) Stool Rotavirus A PCR (NotDetected) Stl Adenov F 40/41 PCR (NotDetected) Stool Astrovirus (PCR) (NotDetected) Stool Campylobacter PCR (NotDetected) Stl C. diff Tox B Gene (Neg) Stl C.difficile Tox A&B (Negative) Stool Cryptosporidium PCR (NotDetected) Stl E.coli Shiga Tox PCR (NotDetected) Stl Enterotoxigenic E PCR (NotDetected) Stool EPEC (PCR) (NotDetected) Stool EAEC (PCR) (NotDetected) Stl E. histolytica PCR (NotDetected) Stool Giardia Lamblia PCR (NotDetected) Stool Salmonella PCR (NotDetected) Stool Sapovirus (PCR) (NotDetected) Stl P. shigelloides PCR (NotDetected) Stl Shigella/EIEC PCR (NotDetected) St Y.enterocolitica PCR (NotDetected) Stool Vibrio (PCR) (NotDetected) Stl Vibrio cholerae PCR (NotDetected) Stl Norovirus GI/GII PCR (NotDetected) Digoxin (0.8-2.0) ng/ml Adenovirus (PCR) Not Detected (NotDetected) B. pertussis DNA (PCR) Not Detected (NotDetected) B.parapertussis DNA PCR Not Detected (NotDetected) C. pneumoniae DNA (PCR) Not Detected (NotDetected) Coronavirus OC43 (PCR) Not Detected (NotDetected) Coronavirus HKU1 (PCR) Not Detected (NotDetected) Coronavirus 229E (PCR) Not Detected (NotDetected) SARS-CoV-2 (PCR) Not Detected (NotDetected) Coronavirus NL63 (PCR) Not Detected (NotDetected) Human Metapneumovir PCR Not Detected (NotDetected) Influenza Type A (PCR) Not Detected (NotDetected) Influenza Type B (PCR) Not Detected (NotDetected) M. pneumoniae (PCR) Not Detected (NotDetected) Parainfluenza 1 (PCR) Not Detected (NotDetected) Parainfluenza 2 (PCR) Not Detected (NotDetected) Parainfluenza 3 (PCR) Not Detected (NotDetected) Parainfluenza 4 (PCR) Not Detected (NotDetected) RSV (PCR) Not Detected (NotDetected) Entero/Rhino (PCR) Not Detected (NotDetected) Blood Type Antibody Screen Medications Administered Current Inpatient Medications Benzonatate (Benzonatate 100 Mg Capsule) 100 mg PO TID PRN PRN Reason: Cough Stop: 12/14/24 22:12 Last Admin: 11/15/24 08:04 Dose: 100 mg Brimonidine Tartrate (Brimonidine Tartrate 0.2% 5ml) 1 drops OPR BID MEJIA Stop: 12/14/24 22:14 Last Admin: 11/15/24 07:45 Dose: 1 drops Dextrose (Dextrose 50% 50 Ml Syringe) 25 - 50 ml IV UD PRN; Protocol PRN Reason: Hypoglycemia Protocol Stop: 12/14/24 23:16 Glucagon (Glucagon For Inj 1 Mg Vial) 1 mg SQ UD PRN; Protocol PRN Reason: Hypoglycemia Protocol Stop: 12/14/24 23:16 Glucose (Glucose 40% Gel 15 Gm Tube) 15 - 30 gm PO UD PRN; Protocol PRN Reason: Hypoglycemia Protocol Stop: 12/14/24 23:16 Glucose (Glucose 10 Tab/Tube) 4 - 8 tab PO UD PRN; Protocol PRN Reason: Hypoglycemia Protocol Stop: 12/14/24 23:16 Piperacillin Sod/Tazobactam Sod (Zosyn) 4.5 gm in 100 mls @ 25 mls/hr IV Q8H MEJIA; Protocol Stop: 11/25/24 03:59 Last Admin: 11/15/24 11:52 Dose: 25 mls/hr Insulin Aspart (Insulin Aspart Per Unit Charge) 0 units SC ACHS MEJIA Stop: 12/14/24 23:16 Last Admin: 11/15/24 11:51 Dose: 6 units Insulin Glargine (Lantus Per Unit Charge) 5 units SQ DAILY MEJIA Stop: 12/15/24 08:59 Last Admin: 11/15/24 08:04 Dose: 5 units Latanoprost (Latanoprost 0.005% Op Soln 2.5 Ml Btl) 1 drops OPB HS MEJIA Stop: 12/14/24 22:14 Last Admin: 11/14/24 23:38 Dose: 1 drops Metoprolol Succinate (Metoprolol Succ 50mg Ext Rel Tab) 50 mg PO BID MEJIA Stop: 12/15/24 20:59 Miscellaneous (Carbohydrates For Hypoglycemia ) 15 - 30 gm PO UD PRN PRN Reason: Hypoglycemia Protocol Stop: 12/14/24 23:16 Multivitamins (Multivitamin Tab) 1 tab PO QAM [facility] Stop: 12/15/24 08:59 Last Admin: 11/15/24 07:44 Dose: 1 tab Pantoprazole Sodium (Pantoprazole 40 Mg Tab) 40 mg PO QAM [facility] Stop: 12/15/24 08:59 Last Admin: 11/15/24 07:43 Dose: 40 mg Timolol Maleate (Timolol Maleate 0.5% Op Soln 5 Ml Btl) 1 drops OPR BID [facility] Stop: 12/14/24 22:14 Last Admin: 11/15/24 07:45 Dose: 1 drops
[2024-11-15] MEDS: HYDROCORTISONE 1% CRM 30 GM TUBE EXT PRN (17:00)
[2024-11-15] MEDS: HYDROCORTISONE HC 2.5% CRM 30GM TUBE EXT ONE (20:19)
[2024-11-15] MEDS: METOPROLOL SUCC 50MG EXT REL TAB PO SCH (20:22)
[2024-11-16] MEDS: VANCOMYCIN HCL 125 MG/2.5ML SOLN PO SCH (00:07)
[2024-11-16] MEDS: CHERRY SYRUP 5 ML UDP PO SCH (00:07)
[2024-11-16 07:39] LABS: Hematocrit (blood only) 35.3 % (42.0-52.0); Hemoglobin 11.1 g/dl (14.0-18.0); Mean Corpuscular Hgb Conc 31.4 g/dL (32.0-36.0); Mean Corpuscular Volume 73.1 fL (80.0-100.0); Mean Platelet Volume 10.1 fL (9.4-12.4); Platelet Count 291 K/uL (130-400); RDW Coefficient of Variation 18.5 % (11.5-14.5); Red Blood Count 4.83 M/uL (4.70-6.10)
[2024-11-16 08:00] LABS: BUN Creatinine Ratio 25.6 (10-20); Calcium 9.3 mg/dl (8.6-10.3); Creatinine Clr Calc Pharmacy 66.3 ml/min; Magnesium 1.9 mg/dl (1.7-2.4); Phosphorus 4.3 mg/dl (2.5-4.9); Potassium 3.8 mmol/L (3.5-5.1)
--- NOTE | 2024-11-16 08:08 | Hospitalist Progress Note ---
Date of Service November 16, 2024 Assessment & Plan (1) Severe sepsis: Plan: Severe sepsis SIRS plus ARF on CKD Secondary to complicated UTI Rule out C. difficile diarrhea Flagyl 1 dose given sepsis criteria, oral vancomycin if stool C. difficile positive stool posit. for c. diff gene but negative for toxin, rest of the panel negative. will start po vanco as pt on abx and in increased risk. Pt is still having diarrhea. UTI urine cultx posit for E.coli - pansensitive blood cultx - negat. so far Pt started on zosyn on admission, will cont. for now follow cultx FRED on CKD Cr improved to 1.3 cont. to closely monitor BMP am Atrial fibrillation with rapid ventricular response secondary to illness, pat ient on Xarelto chronic systolic heart failure secondary to nonischemic cardiomyopathy (EF 25- 29%, TTE 2024) sp ICD, equivocal volume status, congestion on x-ray, patient intravascularly dry Cardiology consult Re: Cardiac medication management Discussed w/ cardiology Currently holding Entresto, spironolactone, torsemide (diuretics) Due to hypotension and elevated creatinine, metoprolol dose now 50 mg BID Digoxin on hold. Dig level was low on admission. Currently holding diuretics given FRED. Weight continues to trend downward but will need to resume diuretics within the next 1-2 days. EP appt is being arranged as an outpatient to discuss BIV upgrade to his single lead ICD given widened QRS and recurrent CHF symptoms. Painless LGIB in the setting of NOAC rx, H&H currently stable at baseline hemoglobin Hold Eliquis given painless LGIB, clear liquid diet for now follow H&H, transfuse PRBC if hemoglobin less than 8 and or for symptomatic anemia GI consult if with progressive bleeding 11/15 discussed with pt -Bleed seemed minimal and now resolved. cont. to closely monitor Eliquis resumed Chronic: Valvular heart disease (moderate MR/TR) aortic root enlargement nonocclusive CAD as per records HTN, borderline BP hyperlipidemia/statin intolerance, patient on Repatha JOSE DE JESUS on CPAP DM2 on oral medications, suboptimal control as well recent hemoglobin A1c of 8.7 this month , Basal insulin, ISS BG goal 110-140, carb count coverage Persistent hyperthyroidism, past history of amiodarone Rx past tobacco abuse DVT prophylaxis. Eliquis Full code Patient's - Ms. Eva James, contact #[phone]. Admission and Anticipated Discharge Date Admission Date: November 14, 2024 Subjective Pt seen in follow up Recently admitted for CHF Now treated for UTI Currently lying in bed in NAD Overall reports feeling better, denies any urinary symptoms reports having some diarrhea denies chest pain or shortness of breath Review of Systems Review of Systems: All systems reviewed & are unremarkable except as noted in Subjective Physical Exam Physical Exam: GENERAL: Comfortable, pleasant, morbidly obese HEENT: NC/AT, pale palpebral conjunctivae NECK : Supple CHEST : Decreased breath sounds, no tenderness HEART : irregular, systolic murmur ABDOMEN: Some distention, nontender EXTREMITIES : Bilateral LE swelling, no LE tenderness, moves extremities NEUROLOGIC : Coherent, no facial asymmetry, no other gross focality SKIN: Pallor, warm Results & Data Results & Data Vital Signs (Past 12 Hours) Vital Signs Temp Pulse Pulse Resp BP Pulse Ox Pulse Ox 11/16/24 07:26 36.5 C 96 H 18 140/89 96 11/16/24 03: 36.6 C 90 18 123/79 98 11/15/24 23:28 83 11/15/24 23:17 95 11/15/24 22:17 36.5 C 75 18 108/74 95 O2 Del Method O2 Del Method 11/16/24 07:26 Room Air 11/16/24 03:26 Room Air 11/15/24 23:28 11/15/24 23:17 Room Air 11/15/24 22:17 Room Air Laboratory Results 11/16/24 11/16/24 11/15/24 Range/Units 07:08 06:31 19:46 WBC 8.20 (4.8-10.8) K/ul RBC 4.83 (4.70-6.10) M/uL Hgb 11.1 L (14.0-18.0) g/dl Hct 35.3 L (42.0-52.0) % MCV 73.1 L (80.0-100.0) fL MCH 23.0 L (25.0-34.0) pg MCHC 31.4 L (32.0-36.0) g/dL RDW Std Deviation 47.0 H (36.4-46.3) fL RDW Coeff of Jose 18.5 H (11.5-14.5) % Plt Count 291 (130-400) K/uL MPV 10.1 (9.4-12.4) fL Immature Gran % (Auto) % Neut % (Auto) % Lymph % (Auto) % Carver % (Auto) % Eos % (Auto) % Baso % (Auto) % Neut # (Auto) (1.40-6.50) K/uL Lymph # (Auto) (1.20-3.40) K/uL Carver # (Auto) (0.11-0.59) K/uL Eos # (Auto) (0.00-0.50) K/uL Baso # (Auto) (0.00-0.20) K/uL Immature Gran # (Auto) (0.01-0.20) K/uL APTT (21-31) Seconds PTT Ratio Sodium 135 L (136-145) mmol/L Potassium 3.8 (3.5-5.1) mmol/L Chloride 100 (98-107) mmol/L Carbon Dioxide 24 (21-32) mmol/L Anion Gap 11 (3-11) BUN 34 H (6-23) mg/dl Creatinine 1.33 (0.6-1.4) mg/dl Est Cr Clr Drug Dosing 66.3 ml/min eGFR 58.22 BUN/Creatinine Ratio 25.6 H (10-20) Glucose 160 H (70-99(Fasting)) mg/dl POC Glucose 166 H 193 H (70-99) mg/dl Calcium 9.3 (8.6-10.3) mg/dl Phosphorus 4.3 (2.5-4.9) mg/dl Magnesium 1.9 (1.7-2.4) mg/dl Troponin I High Sens (0-20) pg/ml TSH (0.300-4.500) uIu/ml Free T4 (0.61-1.60) ng/dl 11/15/24 11/15/24 11/15/24 Range/Units 16:05 11:07 07:00 WBC 9.72 (4.8-10.8) K/ul RBC 4.48 L (4.70-6.10) M/uL Hgb 10.3 L (14.0-18.0) g/dl Hct 32.5 L (42.0-52.0) % MCV 72.5 L (80.0-100.0) fL MCH 23.0 L (25.0-34.0) pg MCHC 31.7 L (32.0-36.0) g/dL RDW Std Deviation 46.4 H (36.4-46.3) fL RDW Coeff of Jose 17.8 H (11.5-14.5) % Plt Count 272 (130-400) K/uL MPV 10.4 (9.4-12.4) fL Immature Gran % (Auto) 0.6 % Neut % (Auto) 79.2 % Lymph % (Auto) 7.4 % Carver % (Auto) 12.1 % Eos % (Auto) 0.4 % Baso % (Auto) 0.3 % Neut # (Auto) 7.69 H (1.40-6.50) K/uL Lymph # (Auto) 0.72 L (1.20-3.40) K/uL Carver # (Auto) 1.18 H (0.11-0.59) K/uL Eos # (Auto) 0.04 (0.00-0.50) K/uL Baso # (Auto) 0.03 (0.00-0.20) K/uL Immature Gran # (Auto) 0.06 (0.01-0.20) K/uL APTT 35 H (21-31) Seconds PTT Ratio 1.3 Sodium 134 L (136-145) mmol/L Potassium 3.5 (3.5-5.1) mmol/L Chloride 95 L (98-107) mmol/L Carbon Dioxide 25 (21-32) mmol/L Anion Gap 14 H (3-11) BUN 41 H (6-23) mg/dl Creatinine 1.55 H D (0.6-1.4) mg/dl Est Cr Clr Drug Dosing 57.0 ml/min eGFR 48.45 BUN/Creatinine Ratio 26.5 H (10-20) Glucose 182 H (70-99(Fasting)) mg/dl POC Glucose 157 H 213 H (70-99) mg/dl Calcium 9.1 (8.6-10.3) mg/dl Phosphorus (2.5-4.9) mg/dl Magnesium (1.7-2.4) mg/dl Troponin I High Sens 51.1 H* (0-20) pg/ml TSH 0.094 L (0.300-4.500) uIu/ml Free T4 2.95 H (0.61-1.60) ng/dl Medications Administered Current Inpatient Medications Benzonatate (Benzonatate 100 Mg Capsule) 100 mg PO TID PRN PRN Reason: Cough Stop: 12/14/24 22:12 Last Admin: 11/15/24 20:26 Dose: 100 mg Brimonidine Tartrate (Brimonidine Tartrate 0.2% 5ml) 1 drops OPR BID [facility] Stop: 12/14/24 22:14 Last Admin: 11/16/24 07:56 Dose: 1 drops Ortiz Syrup (Ortiz Syrup 5 Ml Udp) 5 ml PO Q6 [facility] Stop: 11/26/24 00:00 Last Admin: 11/16/24 06:19 Dose: 5 ml Dextrose (Dextrose 50% 50 Ml Syringe) 25 - 50 ml IV UD PRN; Protocol PRN Reason: Hypoglycemia Protocol Stop: 12/14/24 23:16 Glucagon (Glucagon For Inj 1 Mg Vial) 1 mg SQ UD PRN; Protocol PRN Reason: Hypoglycemia Protocol Stop: 12/14/24 23:16 Glucose (Glucose 40% Gel 15 Gm Tube) 15 - 30 gm PO UD PRN; Protocol PRN Reason: Hypoglycemia Protocol Stop: 12/14/24 23:16 Glucose (Glucose 10 Tab/Tube) 4 - 8 tab PO UD PRN; Protocol PRN Reason: Hypoglycemia Protocol Stop: 12/14/24 23:16 Hydrocortisone (Hydrocortisone 1% Crm 30 Gm Tube) 1 appln EXT BID PRN PRN Reason: Itching Stop: 12/15/24 16:27 Last Admin: 11/15/24 17:00 Dose: 1 appln Piperacillin Sod/Tazobactam Sod (Zosyn) 4.5 gm in 100 mls @ 25 mls/hr IV Q8H [facility]; Protocol Stop: 11/25/24 03:59 Last Admin: 11/16/24 04:42 Dose: 25 mls/hr Insulin Aspart (Insulin Aspart Per Unit Charge) 0 units SC ACHS [facility] Stop: 12/14/24 23:16 Last Admin: 11/15/24 20:23 Dose: 3 units Insulin Glargine (Lantus Per Unit Charge) 5 units SQ DAILY [facility] Stop: 12/15/24 08:59 Last Admin: 11/15/24 08:04 Dose: 5 units Latanoprost (Latanoprost 0.005% Op Soln 2.5 Ml Btl) 1 drops OPB HS [facility] Stop: 12/14/24 22:14 Last Admin: 11/15/24 20:22 Dose: 1 drops Metoprolol Succinate (Metoprolol Succ 50mg Ext Rel Tab) 50 mg PO BID [facility] Stop: 12/15/24 20:59 Last Admin: 11/16/24 07:57 Dose: 50 mg Miscellaneous (Carbohydrates For Hypoglycemia ) 15 - 30 gm PO UD PRN PRN Reason: Hypoglycemia Protocol Stop: 12/14/24 23:16 Multivitamins (Multivitamin Tab) 1 tab PO QAM [facility] Stop: 12/15/24 08:59 Last Admin: 11/16/24 07:58 Dose: 1 tab Pantoprazole Sodium (Pantoprazole 40 Mg Tab) 40 mg PO QAM [facility] Stop: 12/15/24 08:59 Last Admin: 11/16/24 07:58 Dose: 40 mg Rivaroxaban (Rivaroxaban 20 Mg Tab) 20 mg PO QDD [facility] Stop: 12/16/24 16:29 Timolol Maleate (Timolol Maleate 0.5% Op Soln 5 Ml Btl) 1 drops OPR BID [facility] Stop: 12/14/24 22:14 Last Admin: 11/16/24 07:55 Dose: 1 drops Vancomycin HCl (Vancomycin Hcl 125 Mg/2.5ml Soln) 125 mg PO Q6 [facility] Stop: 11/26/24 00:00 Last Admin: 11/16/24 06:19 Dose: 125 mg
[2024-11-16] MEDS ORDERED: cefUROXime axetil 250 MG TABLET PO SCH (14:00)
--- NOTE | 2024-11-16 15:06 | Cardiology Progress Note ---
Date of Service November 16, 2024 Assessment & Plan (1) FRED (acute kidney injury): (2) Acute UTI: (3) Severe sepsis: (4) Acute systolic CHF (congestive heart failure): (5) Atrial fibrillation with rapid ventricular response: Plan Patient admitted for abnormal labs as an outpatient with elevated WBC at 25 and creatinine of 2.5 with intermittent hypotension, suggesting acute sepsis. On arrival to ER found to have acute UTI with Sensitive E. coli on urine culture. Blood culture still pending but without growth thus far. He has been transition to oral antibiotics which should be helpful with regards to reducing IV fluid intake. Xarelto reinitiated. WBC trending downward this morning Currently holding Entresto, spironolactone, torsemide (diuretics) Due to hypotension and elevated creatinine, metoprolol dose was reduced on admission from 150 mg BID to 25 mg BID Digoxin on hold. Dig level was low on admission. He has known persistent afib. Amiodarone was discontinued in Sep due to persistent afib and hyperthyroidism. Ongoing rate control strategy recommended. HR's are trending higher. Increase metoprolol to 50 mg BID. May need to resume digoxin, as this aided his HR's after initiation last week. This chart was completed in part utilizing Speech Voice Recognition Software. Grammatical errors, random word insertions, pronoun errors, and incomplete sentences are an occasional consequence of this system due to software limitations, ambient noise, and hardware issues. Any formal questions or concerns about the content, text, or information contained within the body of this dictation should be directly addressed to the provider for clarification. Admission and Anticipated Discharge Date Admission Date: November 14, 2024 Subjective Patient seen in cardiology follow-up. Notes subjective improvement. Denies shortness of breath. Denies subjective palpitations. Diarrhea improved this morning. Telemetry reveals atrial fibrillation with rate in the 70s to 90s with occasional PVCs. Physical Exam Constitutional: + ill appearing; no acute distress Neck: + thick neck Respiratory: no labored breathing Auscultation: + diminished lung sounds; no crackles and no rales Cardiovascular: Rate/Rhythm: + tachycardic and + irregularly irregular Heart Sounds: normal S1 and normal S2; no murmur Vessels: + JVD Extremities: + edema (1-2+ pretibial and ankle edema) Gastrointestinal (Abdomen): normal bowel sounds, soft, nontender, no hepatosplenomegaly Musculoskeletal: no cyanosis or clubbing, extremities motor strength 5/5 Results & Data Vital Signs (Past 12 Hours) Vital Signs Temp Pulse Pulse Resp BP Pulse Ox O2 Del Method 11/16/24 11:12 36.5 C 77 18 123/86 96 Room Air 11/16/24 10:39 85 11/16/24 07:26 36.5 C 96 H 18 140/89 96 Room Air 11/16/24 03:26 36.6 C 90 18 123/79 98 Room Air Laboratory Results CBC 11/16/24 Range/Units 06:31 WBC 8.20 (4.8-10.8) K/ul RBC 4.83 (4.70-6.10) M/uL Hgb 11.1 L (14.0-18.0) g/dl Hct 35.3 L (42.0-52.0) % Plt Count 291 (130-400) K/uL Comprehensive Metabolic Panel 11/16/24 Range/Units 06:31 Sodium 135 L (136-145) mmol/L Potassium 3.8 (3.5-5.1) mmol/L Chloride 100 (98-107) mmol/L Carbon Dioxide 24 (21-32) mmol/L BUN 34 H (6-23) mg/dl Creatinine 1.33 (0.6-1.4) mg/dl Glucose 160 H (70-99(Fasting)) mg/dl Calcium 9.3 (8.6-10.3) mg/dl Intake and Output 11/16/24 11/16/24 11/16/24 06:59 14:59 22:59 Intake Total 450 / 1200 1040 / 1040 Balance 450 / 1200 1040 / 1040 Intake: IV 100 / 300 100 / 100 Piperacillin/Tazobactam 4.5 gm 100 / 300 100 / 100 In 100 ml @ 25 mls/hr IV Q8H [facility] Rx#:[id number] Oral 350 / 900 940 / 940 Other: # Unmeasured Voids 1 4 Weight 121.4 kg Weight Measurement Method Built in [facility]
[2024-11-16] MEDS: RIVAROXABAN 20 MG TAB PO SCH (16:21)
[2024-11-16] MEDS: POTASSIUM CHLORIDE CRTAB 20 MEQ TABCR PO STA (18:48)
[2024-11-16] MEDS: cefUROXime axetil 250 MG TABLET PO SCH (21:07)
[2024-11-17 07:34] LABS: Hematocrit (blood only) 34.7 % (42.0-52.0); Hemoglobin 10.6 g/dl (14.0-18.0); Mean Corpuscular Hemoglobin 22.8 pg (25.0-34.0); Mean Corpuscular Hgb Conc 30.5 g/dL (32.0-36.0); Mean Corpuscular Volume 74.6 fL (80.0-100.0); Mean Platelet Volume 10.1 fL (9.4-12.4); Platelet Count 308 K/uL (130-400); RDW Coefficient of Variation 18.4 % (11.5-14.5); RDW Standard Deviation 48.3 fL (36.4-46.3); Red Blood Count 4.65 M/uL (4.70-6.10); White Blood Count 8.23 K/ul (4.8-10.8)
[2024-11-17 08:09] LABS: BUN Creatinine Ratio 21.6 (10-20); Calcium 9.3 mg/dl (8.6-10.3); Creatinine Clr Calc Pharmacy 63.4 ml/min; Magnesium 1.8 mg/dl (1.7-2.4); Phosphorus 3.9 mg/dl (2.5-4.9); Potassium 4.3 mmol/L (3.5-5.1)
--- NOTE | 2024-11-17 13:38 | Cardiology Progress Note ---
Date of Service November 17, 2024 Assessment & Plan (1) FRED (acute kidney injury): (2) Acute UTI: (3) Severe sepsis: (4) Acute systolic CHF (congestive heart failure): (5) Atrial fibrillation with rapid ventricular response: Plan Patient admitted for abnormal labs as an outpatient with elevated WBC at 25 and creatinine of 2.5 with intermittent hypotension, suggesting acute sepsis. On arrival to ER found to have acute UTI with Sensitive E. coli on urine culture. Blood culture still pending but without growth thus far. He has been transition to oral antibiotics which should be helpful with regards to reducing IV fluid intake. Xarelto reinitiated. Currently holding Entresto, spironolactone, torsemide 20 mg daily(diuretics) Pt with 15 beat run of NSVT at 18:25 on 11/16/24. AF with rate in 90-110 range at rest, and up to [address] [employer] metoprolol succinate dose of 150 mg BID was reduced due to low BP and will increase back to 100 mg BID. Resume digoxin. lasix 20 mg IV x 1 today. Will consider resuming torsemide tomorrow, depending on BP , and labs. Remain in hospital on telemetry today. This chart was completed in part utilizing Speech Voice Recognition Software. Grammatical errors, random word insertions, pronoun errors, and incomplete sentences are an occasional consequence of this system due to software limitations, ambient noise, and hardware issues. Any formal questions or concerns about the content, text, or information contained within the body of this dictation should be directly addressed to the provider for clarification. Admission and Anticipated Discharge Date Admission Date: November 14, 2024 Subjective Patient feeling subjectively improved. Denies dysuria. Denies lightheadedness or palpitations. Still with mild , but persistent diarrhea. Physical Exam Constitutional: + ill appearing; no acute distress Neck: + thick neck Respiratory: no labored breathing Auscultation: + diminished lung sounds; no crackles and no rales Cardiovascular: Rate/Rhythm: + tachycardic and + irregularly irregular Heart Sounds: normal S1 and normal S2; no murmur Vessels: + JVD Extremities: + edema (1-2+ pretibial and ankle edema) Gastrointestinal (Abdomen): normal bowel sounds, soft, nontender, no hepatosplenomegaly Musculoskeletal: no cyanosis or clubbing, extremities motor strength 5/5 Results & Data Vital Signs (Past 12 Hours) Vital Signs Temp Pulse Resp BP Pulse Ox O2 Del Method 11/17/24 10:55 36.7 C 89 18 105/72 90 Room Air 11/17/24 07:08 36.4 C L 75 18 128/86 96 Room Air 11/17/24 03:10 36.5 C 80 19 120/81 96 Room Air Laboratory Results CBC 11/17/24 Range/Units 05:52 WBC 8.23 (4.8-10.8) K/ul RBC 4.65 L (4.70-6.10) M/uL Hgb 10.6 L (14.0-18.0) g/dl Hct 34.7 L (42.0-52.0) % Plt Count 308 (130-400) K/uL Comprehensive Metabolic Panel 11/17/24 Range/Units 05:52 Sodium 137 (136-145) mmol/L Potassium 4.3 (3.5-5.1) mmol/L Chloride 100 (98-107) mmol/L Carbon Dioxide 28 (21-32) mmol/L BUN 30 H (6-23) mg/dl Creatinine 1.39 (0.6-1.4) mg/dl Glucose 126 H (70-99(Fasting)) mg/dl Calcium 9.3 (8.6-10.3) mg/dl Intake and Output 11/16/24 11/17/24 11/17/24 22:59 06:59 14:59 Intake Total 300 / 1565 225 / 1565 480 / 480 Balance 300 / 1565 225 / 1565 480 / 480 Intake: IV 100 / 200 Piperacillin/Tazobactam 4.5 gm 100 / 200 In 100 ml @ 25 mls/hr IV Q8H [facility] Rx#:[id number] Oral 200 / 1365 225 / 1365 480 / 480 Other: # Unmeasured Voids 1 2 Weight 121.3 kg
[2024-11-17] MEDS: METOPROLOL SUCC 50MG EXT REL TAB PO STA (13:44)
[2024-11-17] MEDS: FUROSEMIDE INJ 20 MG/2 ML VIAL IV ONE (13:48)
--- NOTE | 2024-11-17 14:22 | Hospitalist Progress Note ---
Date of Service November 17, 2024 Assessment & Plan (1) Severe sepsis: Plan: Severe sepsis SIRS plus ARF on CKD Secondary to complicated UTI Rule out C. difficile diarrhea Flagyl 1 dose given sepsis criteria, oral vancomycin if stool C. difficile positive stool posit. for c. diff gene but negative for toxin, rest of the panel negative. will start po vanco as pt on abx and in increased risk. Pt is still having diarrhea. UTI urine cultx posit for E.coli - pansensitive blood cultx - negat. for 48 hrs Pt started on zosyn on admission -> switched to PO cefuroxime follow cultx FRED on CKD Cr 1.95 on 11/14 now Cr improved, current 1.4 cont. to closely monitor BMP am Atrial fibrillation with rapid ventricular response secondary to illness, patient on Xarelto chronic systolic heart failure secondary to nonischemic cardiomyopathy (EF 25- 29%, TTE 2024) sp ICD, equivocal volume status, congestion on x-ray, patient intravascularly dry Cardiology consult Re: Cardiac medication management Discussed w/ cardiology Currently holding Entresto, spironolactone, torsemide (diuretics) Due to hypotension and elevated creatinine, metoprolol dose decreased, now increasing to 100 mg BID Digoxin on hold on admission. Dig level was low on admission. Resume digoxin. holding diuretics given FRED on admission -> will give lasix today EP appt is being arranged as an outpatient to discuss BIV upgrade to his single lead ICD given widened QRS and recurrent CHF symptoms. Painless LGIB in the setting of NOAC rx, H&H currently stable at baseline hemoglobin Held Eliquis given painless LGIB, clear liquid diet for now follow H&H, transfuse PRBC if hemoglobin less than 8 and or for symptomatic anemia GI consult if with progressive bleeding 11/15 discussed with pt -Bleed seemed minimal and now resolved. cont. to closely monitor Eliquis resumed Chronic: Valvular heart disease (moderate MR/TR) aortic root enlargement nonocclusive CAD as per records HTN, borderline BP hyperlipidemia/statin intolerance, patient on Repatha JOSE DE JESUS on CPAP DM2 on oral medications, suboptimal control as well recent hemoglobin A1c of 8.7 this month , Basal insulin, ISS BG goal 110-140, carb count coverage Persistent hyperthyroidism, past history of amiodarone Rx past tobacco abuse DVT prophylaxis. Eliquis Full code Patient's - Ms. Eva James, contact #[phone]. Admission and Anticipated Discharge Date Admission Date: November 14, 2024 Subjective Pt seen in follow up Recently admitted for CHF Now treated for UTI Currently lying in bed in NAD Overall reports feeling better, denies any urinary symptoms reports having some diarrhea denies chest pain or shortness of breath Review of Systems Review of Systems: All systems reviewed & are unremarkable except as noted in Subjective Physical Exam Physical Exam: GENERAL: Comfortable, pleasant, morbidly obese HEENT: NC/AT, pale palpebral conjunctivae NECK : Supple CHEST : Decreased breath sounds, no tenderness HEART : irregular,mildly tachycardic, systolic murmur ABDOMEN: Some distention, nontender EXTREMITIES : Bilateral LE swelling, no LE tenderness, moves extremities NEUROLOGIC : Coherent, no facial asymmetry, no other gross focality SKIN: Pallor, warm Results & Data Results & Data Vital Signs (Past 12 Hours) Vital Signs Temp Pulse Resp BP Pulse Ox O2 Del Method 11/17/24 13:40 90 18 124/74 97 Room Air 11/17/24 10:55 36.7 C 89 18 105/72 90 Room Air 11/17/24 07:08 36.4 C L 75 18 128/86 96 Room Air 11/17/24 03:10 36.5 C 80 19 120/81 96 Room Air Laboratory Results 11/17/24 11/17/24 11/17/24 Range/Units 10:54 07:07 05:52 WBC 8.23 (4.8-10.8) K/ul RBC 4.65 L (4.70-6.10) M/uL Hgb 10.6 L (14.0-18.0) g/dl Hct 34.7 L (42.0-52.0) % MCV 74.6 L (80.0-100.0) fL MCH 22.8 L (25.0-34.0) pg MCHC 30.5 L (32.0-36.0) g/dL RDW Std Deviation 48.3 H (36.4-46.3) fL RDW Coeff of Jose 18.4 H (11.5-14.5) % Plt Count 308 (130-400) K/uL MPV 10.1 (9.4-12.4) fL Sodium 137 (136-145) mmol/L Potassium 4.3 (3.5-5.1) mmol/L Chloride 100 (98-107) mmol/L Carbon Dioxide 28 (21-32) mmol/L Anion Gap 9 (3-11) BUN 30 H (6-23) mg/dl Creatinine 1.39 (0.6-1.4) mg/dl Est Cr Clr Drug Dosing 63.4 ml/min eGFR 55.22 BUN/Creatinine Ratio 21.6 H (10-20) Glucose 126 H (70-99(Fasting)) mg/dl POC Glucose 181 H 139 H (70-99) mg/dl Calcium 9.3 (8.6-10.3) mg/dl Phosphorus 3.9 (2.5-4.9) mg/dl Magnesium 1.8 (1.7-2.4) mg/dl 11/16/24 11/16/24 Range/Units 19:40 15:49 WBC (4.8-10.8) K/ul RBC (4.70-6.10) M/uL Hgb (14.0-18.0) g/dl Hct (42.0-52.0) % MCV (80.0-100.0) fL MCH (25.0-34.0) pg MCHC (32.0-36.0) g/dL RDW Std Deviation (36.4-46.3) fL RDW Coeff of Jose (11.5-14.5) % Plt Count (130-400) K/uL MPV (9.4-12.4) fL Sodium (136-145) mmol/L Potassium (3.5-5.1) mmol/L Chloride (98-107) mmol/L Carbon Dioxide (21-32) mmol/L Anion Gap (3-11) BUN (6-23) mg/dl Creatinine (0.6-1.4) mg/dl Est Cr Clr Drug Dosing ml/min eGFR BUN/Creatinine Ratio (10-20) Glucose (70-99(Fasting)) mg/dl POC Glucose 202 H 184 H (70-99) mg/dl Calcium (8.6-10.3) mg/dl Phosphorus (2.5-4.9) mg/dl Magnesium (1.7-2.4) mg/dl Medications Administered Current Inpatient Medications Benzonatate (Benzonatate 100 Mg Capsule) 100 mg PO TID PRN PRN Reason: Cough Stop: 12/14/24 22:12 Last Admin: 11/16/24 10:09 Dose: 100 mg Brimonidine Tartrate (Brimonidine Tartrate 0.2% 5ml) 1 drops OPR BID [facility] Stop: 12/14/24 22:14 Last Admin: 11/17/24 08:10 Dose: 1 drops Cefuroxime Axetil (Cefuroxime Axetil 250 Mg Tablet) 250 mg PO BID [facility] Stop: 11/21/24 20:59 Last Admin: 11/17/24 08:08 Dose: 250 mg Ortiz Syrup (Ortiz Syrup 5 Ml Udp) 5 ml PO Q6 [facility] Stop: 11/26/24 00:00 Last Admin: 11/17/24 11:43 Dose: 5 ml Dextrose (Dextrose 50% 50 Ml Syringe) 25 - 50 ml IV UD PRN; Protocol PRN Reason: Hypoglycemia Protocol Stop: 12/14/24 23:16 Digoxin (Digoxin 0.125 Mg Tab) 0.125 mg PO DAILY@1600 [facility] Stop: 12/17/24 15:59 Glucagon (Glucagon For Inj 1 Mg Vial) 1 mg SQ UD PRN; Protocol PRN Reason: Hypoglycemia Protocol Stop: 12/14/24 23:16 Glucose (Glucose 40% Gel 15 Gm Tube) 15 - 30 gm PO UD PRN; Protocol PRN Reason: Hypoglycemia Protocol Stop: 12/14/24 23:16 Glucose (Glucose 10 Tab/Tube) 4 - 8 tab PO UD PRN; Protocol PRN Reason: Hypoglycemia Protocol Stop: 12/14/24 23:16 Hydrocortisone (Hydrocortisone 1% Crm 30 Gm Tube) 1 appln EXT BID PRN PRN Reason: Itching Stop: 12/15/24 16:27 Last Admin: 11/16/24 21:08 Dose: 1 appln Insulin Aspart (Insulin Aspart Per Unit Charge) 0 units SC ACHS [facility] Stop: 12/14/24 23:16 Last Admin: 11/17/24 11:43 Dose: 4 units Insulin Glargine (Lantus Per Unit Charge) 5 units SQ DAILY [facility] Stop: 12/15/24 08:59 Last Admin: 11/17/24 08:13 Dose: 5 units Latanoprost (Latanoprost 0.005% Op Soln 2.5 Ml Btl) 1 drops OPB HS [facility] Stop: 12/14/24 22:14 Last Admin: 11/16/24 21:07 Dose: 1 drops Metoprolol Succinate (Metoprolol Succ 50mg Ext Rel Tab) 100 mg PO Q12H [facility] Stop: 12/17/24 20:59 Miscellaneous (Carbohydrates For Hypoglycemia ) 15 - 30 gm PO UD PRN PRN Reason: Hypoglycemia Protocol Stop: 12/14/24 23:16 Multivitamins (Multivitamin Tab) 1 tab PO QAM [facility] Stop: 12/15/24 08:59 Last Admin: 11/17/24 08:09 Dose: Not Given Pantoprazole Sodium (Pantoprazole 40 Mg Tab) 40 mg PO QAM [facility] Stop: 12/15/24 08:59 Last Admin: 11/17/24 08:09 Dose: 40 mg Rivaroxaban (Rivaroxaban 20 Mg Tab) 20 mg PO QDD [facility] Stop: 12/16/24 16:29 Last Admin: 11/16/24 16:21 Dose: 20 mg Timolol Maleate (Timolol Maleate 0.5% Op Soln 5 Ml Btl) 1 drops OPR BID [facility] Stop: 12/14/24 22:14 Last Admin: 11/17/24 08:09 Dose: 1 drops Vancomycin HCl (Vancomycin Hcl 125 Mg/2.5ml Soln) 125 mg PO Q6 [facility] Stop: 11/26/24 00:00 Last Admin: 11/17/24 11:43 Dose: 125 mg
[2024-11-17] MEDS: DIGOXIN 0.125 MG TAB PO SCH (16:34)
[2024-11-17] MEDS ORDERED: METOPROLOL SUCC 50MG EXT REL TAB PO SCH (21:00)
[2024-11-17] MEDS: METOPROLOL SUCC 50MG EXT REL TAB PO SCH (22:25)
--- NOTE | 2024-11-18 08:04 | Cardiology Progress Note ---
Date of Service November 18, 2024 Assessment & Plan (1) FRED (acute kidney injury): (2) Acute UTI: (3) Severe sepsis: (4) Acute systolic CHF (congestive heart failure): (5) Atrial fibrillation with rapid ventricular response: Plan Patient admitted for abnormal labs as an outpatient with elevated WBC at 25 and creatinine of 2.5 with intermittent hypotension, suggesting acute sepsis. On arrival to ER found to have acute UTI with Sensitive E. coli on urine culture. Blood culture still pending but without growth thus far. He has been transition to oral antibiotics which should be helpful with regards to reducing IV fluid intake. Xarelto reinitiated. Currently holding Entresto, spironolactone, torsemide 20 mg daily(diuretics) Pt with 15 beat run of NSVT at 18:25 on 11/16/24. AF with rate in 90-110 range at rest, and up to 140 with walking. [employer] metoprolol succinate dose of 150 mg BID was reduced due to low BP and will increase back to 100 mg BID. Resume digoxin. lasix 20 mg IV x 1 today. Will consider resuming torsemide tomorrow, depending on BP , and labs. Remain in hospital on telemetry today. This chart was completed in part utilizing Speech Voice Recognition Software. Grammatical errors, random word insertions, pronoun errors, and incomplete sentences are an occasional consequence of this system due to software limitations, ambient noise, and hardware issues. Any formal questions or concerns about the content, text, or information contained within the body of this dictation should be directly addressed to the provider for clarification. 11/18/2024: -patient demonstrates clinical improvement from a cardiac perspective -Reports that his loose stools "have slowed", but not resolved. Ok to hold torsemide today with plans to resume tomorrow 20mg PO Daily -Continue with close monitoring of labs, also recommend OP BMP within one week of discharge. -Continue Digoxin 125mcg PO Daily. continue toprol xl 100mg PO BID Case has been discussed with Dr. Lua. Further recommendations regarding plan of care as per his assessment. I spent a total of 30 minutes on the date of service in preparation, delivery, documentation of the care provided to the patient excluding any time spent in the performance of separately billed services. JACQUELYN Solis [facility] Admission and Anticipated Discharge Date Admission Date: November 14, 2024 Supervising Physician Co-Signing Physician Notes Attending attestation: Case reviewed with the advanced practitioner. I have personally performed a history and physical examination on the patient. I have reviewed the advanced practitioner's documentation on the date of service referenced in note, and I agree with, and take responsibility for the plan of care. Overall patient subjectively improved. Still having episodes of diarrhea but is not as severe. -Atrial fibrillation noted on telemetry but rates improved compared to yesterday having increased his metoprolol dose and added back his digoxin. -Add back Entresto 1 tablet twice daily, first dose tonight. -Remain off of spironolactone and torsemide today. -Patient eager for discharge, possible discharge tomorrow at which time would consider resuming his torsemide but continuing to hold the spironolactone I spent a total of 20 minutes coordinating, documenting, and providing care for this patient excluding time spent in the performance of separately billed services or time spent by another provider. Ed Lua, Subjective 11/18/2024: Patient seen and examined in follow up today. Feeling better than yesterday. States that his loose stools have slowed, but he is still having them. Labs, vitals, diagnostics, telemetry and documentation reviewed. Telemetry reviewed showing A-fib with PVC's rate 90. No acute events overnight Review of Systems Review of Systems: All systems reviewed & are unremarkable except as noted in HPI & below Physical Exam Constitutional: well developed and well nourished; no acute distress and not ill appearing Neck: normal visual inspection and trachea midline Respiratory: normal respiratory effort; no respiratory distress, no labored breathing and no cough Auscultation: lungs clear to auscultation bilaterally; no crackles, no rales, no rhonchi and no wheezes Cardiovascular: Rate/Rhythm: + irregularly irregular Heart Sounds: normal S1 and normal S2 Vessels: dorsalis pedis pulses present; no JVD Extremities: no edema Skin: no rashes, warm and dry Results & Data Vital Signs (Past 12 Hours) Vital Signs Temp Pulse Pulse Resp BP Pulse Ox O2 Del Method 11/18/24 07:48 36.5 C 96 H 16 118/74 97 Room Air 11/18/24 03:57 36.4 C L 93 H 18 120/82 96 Room Air 11/17/24 23:00 11/17/24 22:23 36.8 C 84 18 119/81 95 Room Air 11/17/24 22:00 91 H 11/17/24 20:41 87 128/85 O2 Del Method 11/18/24 07:48 11/18/24 03:57 11/17/24 23:00 Room Air 11/17/24 22:23 11/17/24 22:00 11/17/24 20:41 Laboratory Results CBC 11/18/24 Range/Units 07:39 WBC 9.09 (4.8-10.8) K/ul RBC 5.27 (4.70-6.10) M/uL Hgb 11.8 L (14.0-18.0) g/dl Hct 39.4 L (42.0-52.0) % Plt Count 383 (130-400) K/uL Comprehensive Metabolic Panel 11/18/24 Range/Units 07:39 Sodium 136 (136-145) mmol/L Potassium 4.4 (3.5-5.1) mmol/L Chloride 99 (98-107) mmol/L Carbon Dioxide 26 (21-32) mmol/L BUN 33 H (6-23) mg/dl Creatinine 1.34 (0.6-1.4) mg/dl Glucose 153 H (70-99(Fasting)) mg/dl Calcium 9.6 (8.6-10.3) mg/dl Intake and Output 11/17/24 11/18/24 11/18/24 22:59 06:59 14:59 Intake Total 200 / 680 Output Total 710 / 711 Balance - - - Intake: Oral 200 / 680 Output: Urine 702 / 702 # Bowel Movements Other: # Unmeasured Voids 1 Weight 124.4 kg Weight Measurement Method Built in [facility]
[2024-11-18 08:22] LABS: Hematocrit (blood only) 39.4 % (42.0-52.0); Hemoglobin 11.8 g/dl (14.0-18.0); Mean Corpuscular Hemoglobin 22.4 pg (25.0-34.0); Mean Corpuscular Hgb Conc 29.9 g/dL (32.0-36.0); Mean Corpuscular Volume 74.8 fL (80.0-100.0); Mean Platelet Volume 10.2 fL (9.4-12.4); Platelet Count 383 K/uL (130-400); RDW Coefficient of Variation 19.1 % (11.5-14.5); RDW Standard Deviation 48.5 fL (36.4-46.3); Red Blood Count 5.27 M/uL (4.70-6.10); White Blood Count 9.09 K/ul (4.8-10.8)
[2024-11-18 08:39] LABS: BUN Creatinine Ratio 24.6 (10-20); Calcium 9.6 mg/dl (8.6-10.3); Creatinine Clr Calc Pharmacy 66.7 ml/min; Magnesium 1.7 mg/dl (1.7-2.4); Phosphorus 4.1 mg/dl (2.5-4.9); Potassium 4.4 mmol/L (3.5-5.1)
--- NOTE | 2024-11-18 17:08 | Hospitalist Progress Note ---
Date of Service November 18, 2024 Assessment & Plan (1) Severe sepsis: Plan: Severe sepsis SIRS plus ARF on CKD Secondary to complicated UTI Rule out C. difficile diarrhea Flagyl 1 dose given sepsis criteria, oral vancomycin if stool C. difficile positive stool posit. for c. diff gene but negative for toxin, rest of the panel negative. will start po vanco as pt on abx and in increased risk. Pt is still having diarrhea. UTI urine cultx posit for E.coli - pansensitive blood cultx - negat. for 48 hrs Pt started on zosyn on admission -> switched to PO cefuroxime follow cultx FRED on CKD Cr 1.95 on 11/14 now Cr improved, current 1.34 cont. to closely monitor BMP am Atrial fibrillation with rapid ventricular response secondary to illness, patient on Xarelto chronic systolic heart failure secondary to nonischemic cardiomyopathy (EF 25-29%, TTE 2024) sp ICD, equivocal volume status, congestion on x-ray, patient intravascularly dry Cardiology consult Re: Cardiac medication management Discussed w/ cardiology Currently holding Entresto, spironolactone, torsemide (diuretics) Due to hypotension and elevated creatinine, metoprolol dose decreased, now increased to 100 mg BID Digoxin on hold on admission. Dig level was low on admission. Resumed digoxin. holding diuretics given FRED on admission -> now gave lasix EP appt is being arranged as an outpatient to discuss BIV upgrade to his single lead ICD given widened QRS and recurrent CHF symptoms. Painless LGIB in the setting of NOAC rx, H&H currently stable at baseline hemoglobin Held Eliquis given painless LGIB, clear liquid diet for now follow H&H, transfuse PRBC if hemoglobin less than 8 and or for symptomatic anemia GI consult if with progressive bleeding 11/15 discussed with pt -Bleed seemed minimal and now resolved. cont. to closely monitor Eliquis resumed Chronic: Valvular heart disease (moderate MR/TR) aortic root enlargement nonocclusive CAD as per records HTN, borderline BP hyperlipidemia/statin intolerance, patient on Repatha JOSE DE JESUS on CPAP DM2 on oral medications, suboptimal control as well recent hemoglobin A1c of 8.7 this month , Basal insulin, ISS BG goal 110-140, carb count coverage Persistent hyperthyroidism, past history of amiodarone Rx past tobacco abuse DVT prophylaxis. Eliquis Full code Patient's - Ms. Eva James, contact #[phone]. Admission and Anticipated Discharge Date Admission Date: November 14, 2024 Subjective Pt seen in follow up Recently admitted for CHF Now treated for UTI Currently sitting up in bed in NAD Overall reports feeling better, denies any urinary symptoms reports having some diarrhea, feels it's improved denies chest pain or shortness of breath Review of Systems Review of Systems: All systems reviewed & are unremarkable except as noted in Subjective Physical Exam Physical Exam: GENERAL: Comfortable, pleasant, morbidly obese HEENT: NC/AT, pale palpebral conjunctivae NECK : Supple CHEST : Decreased breath sounds, no tenderness HEART : irregular, systolic murmur ABDOMEN: Some distention, nontender, obese EXTREMITIES : Bilateral LE swelling, no LE tenderness, moves extremities NEUROLOGIC : Coherent, no facial asymmetry, no other gross focality SKIN: Pallor, warm Results & Data Results & Data Vital Signs (Past 12 Hours) Vital Signs Temp Pulse Pulse Resp BP Pulse Ox O2 Del Method 11/18/24 16:17 88 11/18/24 16:16 77 11/18/24 16:00 36.7 C 97 H 16 118/71 98 Room Air 11/18/24 12:00 36.6 C 98 H 18 125/65 96 Room Air 11/18/24 07:48 36.5 C 96 H 16 118/74 97 Room Air 11/18/24 07:15 91 H Laboratory Results 11/18/24 11/18/24 11/18/24 Range/Units 16:18 11:23 07:39 WBC 9.09 (4.8-10.8) K/ul RBC 5.27 (4.70-6.10) M/uL Hgb 11.8 L (14.0-18.0) g/dl Hct 39.4 L (42.0-52.0) % MCV 74.8 L (80.0-100.0) fL MCH 22.4 L (25.0-34.0) pg MCHC 29.9 L (32.0-36.0) g/dL RDW Std Deviation 48.5 H (36.4-46.3) fL RDW Coeff of Jose 19.1 H (11.5-14.5) % Plt Count 383 (130-400) K/uL MPV 10.2 (9.4-12.4) fL Sodium 136 (136-145) mmol/L Potassium 4.4 (3.5-5.1) mmol/L Chloride 99 (98-107) mmol/L Carbon Dioxide 26 (21-32) mmol/L Anion Gap 11 (3-11) BUN 33 H (6-23) mg/dl Creatinine 1.34 (0.6-1.4) mg/dl Est Cr Clr Drug Dosing 66.7 ml/min eGFR 57.70 BUN/Creatinine Ratio 24.6 H (10-20) Glucose 153 H (70-99(Fasting)) mg/dl POC Glucose 214 H 96 (70-99) mg/dl Calcium 9.6 (8.6-10.3) mg/dl Phosphorus 4.1 (2.5-4.9) mg/dl Magnesium 1.7 (1.7-2.4) mg/dl 11/18/24 11/17/24 Range/Units 07:34 19:59 WBC (4.8-10.8) K/ul RBC (4.70-6.10) M/uL Hgb (14.0-18.0) g/dl Hct (42.0-52.0) % MCV (80.0-100.0) fL MCH (25.0-34.0) pg MCHC (32.0-36.0) g/dL RDW Std Deviation (36.4-46.3) fL RDW Coeff of Jose (11.5-14.5) % Plt Count (130-400) K/uL MPV (9.4-12.4) fL Sodium (136-145) mmol/L Potassium (3.5-5.1) mmol/L Chloride (98-107) mmol/L Carbon Dioxide (21-32) mmol/L Anion Gap (3-11) BUN (6-23) mg/dl Creatinine (0.6-1.4) mg/dl Est Cr Clr Drug Dosing ml/min eGFR BUN/Creatinine Ratio (10-20) Glucose (70-99(Fasting)) mg/dl POC Glucose 168 H 117 H (70-99) mg/dl Calcium (8.6-10.3) mg/dl Phosphorus (2.5-4.9) mg/dl Magnesium (1.7-2.4) mg/dl Medications Administered Current Inpatient Medications Benzonatate (Benzonatate 100 Mg Capsule) 100 mg PO TID PRN PRN Reason: Cough Stop: 12/14/24 22:12 Last Admin: 11/18/24 12:19 Dose: 100 mg Brimonidine Tartrate (Brimonidine Tartrate 0.2% 5ml) 1 drops OPR BID [facility] Stop: 12/14/24 22:14 Last Admin: 11/18/24 09:12 Dose: 1 drops Cefuroxime Axetil (Cefuroxime Axetil 250 Mg Tablet) 250 mg PO BID [facility] Stop: 11/21/24 20:59 Last Admin: 11/18/24 09:11 Dose: 250 mg Ortiz Syrup (Ortiz Syrup 5 Ml Udp) 5 ml PO Q6 [facility] Stop: 11/26/24 00:00 Last Admin: 11/18/24 12:15 Dose: 5 ml Dextrose (Dextrose 50% 50 Ml Syringe) 25 - 50 ml IV UD PRN; Protocol PRN Reason: Hypoglycemia Protocol Stop: 12/14/24 23:16 Digoxin (Digoxin 0.125 Mg Tab) 0.125 mg PO DAILY@1600 [facility] Stop: 12/17/24 15:59 Last Admin: 11/18/24 16:17 Dose: 0.125 mg Glucagon (Glucagon For Inj 1 Mg Vial) 1 mg SQ UD PRN; Protocol PRN Reason: Hypoglycemia Protocol Stop: 12/14/24 23:16 Glucose (Glucose 40% Gel 15 Gm Tube) 15 - 30 gm PO UD PRN; Protocol PRN Reason: Hypoglycemia Protocol Stop: 12/14/24 23:16 Glucose (Glucose 10 Tab/Tube) 4 - 8 tab PO UD PRN; Protocol PRN Reason: Hypoglycemia Protocol Stop: 12/14/24 23:16 Hydrocortisone (Hydrocortisone 1% Crm 30 Gm Tube) 1 appln EXT BID PRN PRN Reason: Itching Stop: 12/15/24 16:27 Last Admin: 11/16/24 21:08 Dose: 1 appln Insulin Aspart (Insulin Aspart Per Unit Charge) 0 units SC ACHS [facility] Stop: 12/14/24 23:16 Last Admin: 11/18/24 12:09 Dose: 2 units Insulin Glargine (Lantus Per Unit Charge) 5 units SQ DAILY [facility] Stop: 12/15/24 08:59 Last Admin: 11/18/24 09:01 Dose: 5 units Latanoprost (Latanoprost 0.005% Op Soln 2.5 Ml Btl) 1 drops OPB HS [facility] Stop: 12/14/24 22:14 Last Admin: 11/17/24 20:40 Dose: 1 drops Metoprolol Succinate (Metoprolol Succ 50mg Ext Rel Tab) 100 mg PO Q12H [facility]JIA Stop: 12/17/24 20:59 Last Admin: 11/18/24 09:11 Dose: 100 mg Miscellaneous (Carbohydrates For Hypoglycemia ) 15 - 30 gm PO UD PRN PRN Reason: Hypoglycemia Protocol Stop: 12/14/24 23:16 Multivitamins (Multivitamin Tab) 1 tab PO QAM MEJIA Stop: 12/15/24 08:59 Last Admin: 11/18/24 09:10 Dose: 1 tab Pantoprazole Sodium (Pantoprazole 40 Mg Tab) 40 mg PO QAM MEJIA Stop: 12/15/24 08:59 Last Admin: 11/18/24 09:10 Dose: 40 mg Rivaroxaban (Rivaroxaban 20 Mg Tab) 20 mg PO QDD MEJIA Stop: 12/16/24 16:29 Last Admin: 11/18/24 16:18 Dose: 20 mg Timolol Maleate (Timolol Maleate 0.5% Op Soln 5 Ml Btl) 1 drops OPR BID [facility] Stop: 12/14/24 22:14 Last Admin: 11/18/24 09:12 Dose: 1 drops Vancomycin HCl (Vancomycin Hcl 125 Mg/2.5ml Soln) 125 mg PO Q6 [facility] Stop: 11/26/24 00:00 Last Admin: 11/18/24 12:15 Dose: 125 mg
[2024-11-18] MEDS: VALSARTAN/SACUBITRIL 26/24MG TAB PO SCH (21:02)
[2024-11-19 06:43] LABS: Hematocrit (blood only) 35.7 % (42.0-52.0); Mean Corpuscular Hemoglobin 22.6 pg (25.0-34.0); Mean Corpuscular Hgb Conc 30.8 g/dL (32.0-36.0); Mean Corpuscular Volume 73.3 fL (80.0-100.0); Mean Platelet Volume 9.8 fL (9.4-12.4); Platelet Count 355 K/uL (130-400); RDW Coefficient of Variation 18.7 % (11.5-14.5); RDW Standard Deviation 47.4 fL (36.4-46.3); Red Blood Count 4.87 M/uL (4.70-6.10); White Blood Count 6.61 K/ul (4.8-10.8)
[2024-11-19 07:11] LABS: BUN Creatinine Ratio 26.9 (10-20); Calcium 9.2 mg/dl (8.6-10.3); Creatinine Clr Calc Pharmacy 74.3 ml/min; Magnesium 1.6 mg/dl (1.7-2.4); Phosphorus 3.8 mg/dl (2.5-4.9)
--- NOTE | 2024-11-19 07:59 | Cardiology Progress Note ---
Date of Service November 19, 2024 Assessment & Plan (1) FRED (acute kidney injury): (2) Acute UTI: (3) Severe sepsis: (4) Acute systolic CHF (congestive heart failure): (5) Atrial fibrillation with rapid ventricular response: Plan Patient admitted for abnormal labs as an outpatient with elevated WBC at 25 and creatinine of 2.5 with intermittent hypotension, suggesting acute sepsis. On arrival to ER found to have acute UTI with Sensitive E. coli on urine culture. Blood culture still pending but without growth thus far. He has been transition to oral antibiotics which should be helpful with regards to reducing IV fluid intake. Xarelto reinitiated. Currently holding Entresto, spironolactone, torsemide 20 mg daily(diuretics) Pt with 15 beat run of NSVT at 18:25 on 11/16/24. AF with rate in 90-110 range at rest, and up to 140 with walking. 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 Resume digoxin. lasix 20 mg IV x 1 today. Will consider resuming torsemide tomorrow, depending on BP , and labs. Remain in hospital on telemetry today. This chart was completed in part utilizing Speech Voice Recognition Software. Grammatical errors, random word insertions, pronoun errors, and incomplete sentences are an occasional consequence of this system due to software limitations, ambient noise, and hardware issues. Any formal questions or concerns about the content, text, or information contained within the body of this dictation should be directly addressed to the provider for clarification. 11/18/2024: -patient demonstrates clinical improvement from a cardiac perspective -Reports that his loose stools "have slowed", but not resolved. Ok to hold torsemide today with plans to resume tomorrow 20mg PO Daily -Continue with close monitoring of labs, also recommend OP BMP within one week of discharge. -Continue Digoxin 125mcg PO Daily. continue toprol xl 100mg PO BID 11/19/2024: -patient is stable from a cardiac perspective. Euvolemic. -Reports improvement in his GI distress and is eating/drinking well. -A-fib on telemetry with controlled rates. Continue Toprol xl back at increased dosing of 150mg PO BID, and Digoxin 12mcg daily as outlined yesterday. Continue Xarelto -Will plan to resume torsemide 20mg Q2 days at discharge with plans for close monitoring of labs (patient is aware to have labs done this week prior to his appointment with cardiology) -Continue with Entresto 24/26mg PO BID -Will continue to hold off on restarting spironolactone. this will be re- evaluated outpatient. -Patient is ok for discharge from a cardiac perspective when appropriate with primary team. Keep appt on 11/21/2024 as scheduled. Case has been discussed with Dr. Lua. Further recommendations regarding plan of care as per his assessment. I spent a total of 30 minutes on the date of service in preparation, delivery, documentation of the care provided to the patient excluding any time spent in the performance of separately billed services. JACQUELYN Solis [facility] Admission and Anticipated Discharge Date Admission Date: November 14, 2024 Supervising Physician Co-Signing Physician Notes Attending attestation: Case reviewed with the advanced practitioner. Agree with the plan as outlined. Hold off on resuming spironolactone. Ed Lua DO Subjective 11/19/2024: Patient seen and examined in follow up today. Feeling well overall. Reports improved bowel situation, good appetite. No chest pain, pressure, shortness of breath. Labs, vitals, diagnostics, telemetry and documentation reviewed. Telemetry reviewed showing Renal function stable. Serum mag 1.6, being corrected. Review of Systems Review of Systems: All systems reviewed & are unremarkable except as noted in HPI & below Physical Exam Constitutional: well developed and well nourished; no acute distress and not ill appearing Neck: normal visual inspection and trachea midline Respiratory: normal respiratory effort; no respiratory distress, no labored breathing and no cough Auscultation: lungs clear to auscultation bilaterally; no crackles, no rales, no rhonchi and no wheezes Cardiovascular: Rate/Rhythm: + irregularly irregular Heart Sounds: normal S1 and normal S2 Vessels: dorsalis pedis pulses present; no JVD Extremities: no edema Skin: no rashes, warm and dry Psychiatric: A+Ox3, euthymic affect Results & Data Vital Signs (Past 12 Hours) Vital Signs Temp Pulse Pulse Resp BP Pulse Ox O2 Del Method 11/19/24 03:30 36.4 C L 80 18 121/87 98 Room Air 11/18/24 23:00 36.4 C L 80 17 109/77 98 Room Air 11/18/24 22:00 88 11/18/24 20:50 36.4 C L 100 H 17 128/83 98 Room Air 11/18/24 20:00 Room Air Laboratory Results CBC 11/19/24 Range/Units 06:14 WBC 6.61 (4.8-10.8) K/ul RBC 4.87 (4.70-6.10) M/uL Hgb 11.0 L (14.0-18.0) g/dl Hct 35.7 L (42.0-52.0) % Plt Count 355 (130-400) K/uL Comprehensive Metabolic Panel 11/19/24 Range/Units 06:14 Sodium 136 (136-145) mmol/L Potassium 4.0 (3.5-5.1) mmol/L Chloride 101 (98-107) mmol/L Carbon Dioxide 26 (21-32) mmol/L BUN 32 H (6-23) mg/dl Creatinine 1.19 (0.6-1.4) mg/dl Glucose 137 H (70-99(Fasting)) mg/dl Calcium 9.2 (8.6-10.3) mg/dl Intake and Output 11/18/24 11/19/24 11/19/24 22:59 06:59 14:59 Intake Total 100 / 100 Output Total Balance -2 -2 100 / 100 Intake: IV 100 / 100 Magnesium Sulfate / D5w 1 gm In 100 / 100 100 ml @ 50 mls/hr IV ONE ONE Rx#:[id number] Output: # Bowel Movements 2 / 2 Other: # Unmeasured Voids 1 4 Weight 122.016 kg 122.016 kg Weight Measurement Method Standing Scale Patient Weight 11/20/24 06:59 Weight 122.016 kg
[2024-11-19] MEDS: MAGNESIUM SULFATE / D5W 1 GM/100 ML BAG IV ONE (09:51)
[2024-11-19] MEDS: ADVANCED PROBIOTIC 625 MG CAPSULE PO SCH (11:04)
[2024-11-19 11:39] VITALS: BP 112/63; PULSE 76; RESP 18; TEMP 97.9; O2SAT 98
--- NOTE | 2024-11-19 11:55 | Discharge Summary ---
Date of Service November 19, 2024 Admission HPI Per Admitting Provider History obtained from patient, family, and records. Medical history significant for chronic systolic heart failure secondary to nonischemic cardiomyopathy (EF 25-29%, TTE 2024) sp ICD, valvular heart disease (moderate MR/TR), aortic root enlargement, nonocclusive CAD as per records, A. fib on Xarelto, HTN, hyperlipidemia/statin intolerance, JOSE DE JESUS on CPAP, DM2 on oral medications, amiodarone induced hyperthyroidism, CRI (recent creatinine of 1.4), chronic anemia (baseline hemoglobin 10-11), kidney stones as per patient, past tobacco abuse. Two [facility] admissions since September 2024. Recent confinement November 06 to 2024 for decompensated heart failure. Patient discharged on new digoxin and torsemide medications. Toprol XL increased to 150 twice daily., Outpatient EPS eval contemplated for biventricular ICD upgrade. Patient noted to be increasingly weak at home as per . Very tired, no headache symptoms. Very sleepy at home. Denies chest pain, SOB. Chronic dry cough symptoms attributed to some medications as per . Watery diarrhea symptoms without abdominal pain. Patient seen on outpatient [facility] cardiology visit yesterday. SBP 100s. Toprol-XL dose reduced. Consider Entresto reduction due to low BP. Diarrhea possibly from torsemide, consider reverting to furosemide as per provider note. Repeat labs ordered including TSH. Endocrinology consultation to be considered if patient remains hyperthyroid as per note. Abnormal labs resulted yesterday. WBC 25.14 Serum creatinine 2.5 TSH still elevated. Patient instructed to hold torsemide, spironolactone and Entresto medications. Repeat chemistry recommended by cardiology provider in 2 days. Today patient noted dysuria symptoms without abdominal or flank pain. Blood noted on toilet paper on wiping his bottom as well. Patient brought to ER for evaluation. Ceftriaxone administered at the ER. 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 Admission Exam Per Admitting Provider GENERAL: Comfortable, pleasant, morbidly obese SKIN: Pallor, warm HEENT: Partial alopecia, bespectacled, pale palpebral conjunctivae, no ptosis, dry buccal mucosa NECK : Supple, short neck, no tenderness CHEST : Decreased breath sounds, no tenderness HEART : irregular, systolic murmur ABDOMEN: Some distention, nontender EXTREMITIES : Bilateral LE swelling, no LE tenderness, no other conspicuous deformities noted NEUROLOGIC : Coherent, no facial asymmetry, no other gross focality Principal Diagnosis Sepsis, complicated UTI FRED on CKD diarrhea Afib RVR Discharge Exam GENERAL: Comfortable, pleasant, morbidly obese HEENT: NC/AT, pale palpebral conjunctivae NECK : Supple CHEST : Decreased breath sounds, no tenderness HEART : irregular, systolic murmur ABDOMEN: Some distention, nontender, obese EXTREMITIES : Bilateral LE swelling, no LE tenderness, moves extremities NEUROLOGIC : Coherent, no facial asymmetry, no other gross focality SKIN: Pallor, warm Discharge Data Allergies Allergy/AdvReac Type Severity Reaction Status Date / Time [id number] Reductase AdvReac Intermediate Joint Pain Verified 11/14/24 19:23 Inhibitor Consultations 11/14/24 21:22 ED Decision to Admit Stat 11/15/24 03:09 Consult Cardiology Routine Ordered Studies 11/14/24 19:28 CT abd pelvis wo con Stat FINDINGS: Lung bases: Unremarkable. No mass. No consolidation. ABDOMEN: Liver: Unremarkable. Gallbladder and bile ducts: Unremarkable. No calcified stones. No ductal dilation. Pancreas: Unremarkable. No ductal dilation. Spleen: Unremarkable. No splenomegaly. Adrenals: Unremarkable. No mass. Kidneys and ureters: There are 2 right and 3 left nonobstructive 2 3 mm calyceal calculi within the kidneys. No hydronephrosis or ureterolithiasis is identified. Stomach and bowel: See below. PELVIS: Appendix: The appendix is normal. Bowel loops are nondilated. There is diverticulosis throughout the colon without signs of acute diverticulitis per no acute inflammatory changes are seen involving the bowel. Bladder: See below. Reproductive: Unremarkable as visualized. ABDOMEN and PELVIS: Intraperitoneal space: Unremarkable. No free air. No significant fluid collection. Bones/joints: Metallic artifact from bilateral hip arthroplasties. No acute fracture or dislocation is seen. Mild to moderate multilevel degenerative changes throughout the spine. No acute fracture or subluxation is seen. Soft tissues: Slight hazy edema in the pelvis surrounding the decompressed urinary bladder. There is slight urinary bladder wall thickening. Vasculature: Unremarkable. No abdominal aortic aneurysm. Lymph nodes: Unremarkable. No enlarged lymph nodes. IMPRESSION: 1. The appendix is normal. Bowel loops are nondilated. There is diverticulosis throughout the colon without signs of acute diverticulitis per no acute inflammatory changes are seen involving the bowel. 2. Slight hazy edema in the pelvis surrounding the decompressed urinary bladder. There is slight urinary bladder wall thickening. Consider cystitis. 3. There are 2 right and 3 left nonobstructive 2-3 mm calyceal calculi within the kidneys. No hydronephrosis or ureterolithiasis is identified. Hospital Course (1) Severe sepsis: Severe sepsis SIRS plus ARF on CKD Secondary to complicated UTI Rule out C. difficile diarrhea Flagyl 1 dose given sepsis criteria, oral vancomycin if stool C. difficile positive stool posit. for c. diff gene but negative for toxin, rest of the panel negative. will start po vanco as pt on abx and in increased risk. Pt is still having diarrhea. UTI urine cultx posit for E.coli - pansensitive blood cultx - negat. for 48 hrs Pt started on zosyn on admission -> switched to PO cefuroxime follow cultx FRED on CKD Cr 1.95 on 11/14 now Cr improved, current 1.2 cont. to closely monitor BMP am Atrial fibrillation with rapid ventricular response secondary to illness, patient on Xarelto chronic systolic heart failure secondary to nonischemic cardiomyopathy (EF 25- 29%, TTE 2024) sp ICD, equivocal volume status, congestion on x-ray, patient intravascularly dry Cardiology consult Re: Cardiac medication management Discussed w/ cardiology Currently holding Entresto, spironolactone, torsemide (diuretics) Due to hypotension and elevated creatinine, metoprolol dose decreased, now increased to 100 mg BID Digoxin on hold on admission. Dig level was low on admission. Resumed digoxin. holding diuretics given FRED on admission -> plan to discharge on torsemide but cont. to hold spironolactone on DC, close follow up w/ cardiology and plan for BMP as outpt at that time as well EP appt is being arranged as an outpatient to discuss BIV upgrade to his single lead ICD given widened QRS and recurrent CHF symptoms. Painless LGIB in the setting of NOAC rx, H&H currently stable at baseline hemoglobin Held Eliquis given painless LGIB, clear liquid diet for now follow H&H, transfuse PRBC if hemoglobin less than 8 and or for symptomatic anemia GI consult if with progressive bleeding 11/15 discussed with pt -Bleed seemed minimal and now resolved. cont. to closely monitor Eliquis resumed Chronic: Valvular heart disease (moderate MR/TR) aortic root enlargement nonocclusive CAD as per records HTN, borderline BP hyperlipidemia/statin intolerance, patient on Repatha JOSE DE JESUS on CPAP DM2 on oral medications, suboptimal control as well recent hemoglobin A1c of 8.7 this month , Basal insulin, ISS BG goal 110-140, carb count coverage Persistent hyperthyroidism, past history of amiodarone Rx past tobacco abuse Total Time Total Time Spent Total Time Spent (In Minutes): 60 Discharge Plan Discharge Items Patient Disposition: Home - Self-Care Reason For Visit: SEPSIS, AF Discharge Diagnosis: Sepsis, complicated UTI FRED on CKD diarrhea Afib RVR Activity: Per Instructions section Non-emergency contact: Primary Care Provider and Data Entry Clerk Call non-emergency contact if: you have any medication questions and your symptoms worsen Follow-up/Referrals: Jazmine Anguiano MD [Primary Care Provider] - (Date & Time 11/23/2024 11:20 AM Provider: Jazmine Anguiano MD Family Practice [facility] ) Eva Guevara DO [Physician] - (Date & Time 11/21/2024 10:15 AM Provider: Eva Guevara DO Cardiology, [facility] ) Diet: Carb Consistent or DM2 and Low Fiber Addtl Attending Provider Instructions: Follow up with your primary care doctor and cardiology. Finish antibiotic course as prescribed. Also recommend taking probiotic. Take metoprolol 100 mg twice a day and digoxin as prescribed. Take torsemide 20 mg daily, for now do not take spironolactone. Continue taking Entresto as prescribed. You will need blood work done, please obtain at your next follow up with cardiology. Pending Studies at Discharge: Yes Studies:: final results of blood cultx Stand-Alone Forms: [employer], Smoking Cessation Medications and DC Order Prescriptions: New Advanced Probiotic 625 mg (10 billion cell) Capsule 1 cap PO DAILY Qty: 7 0RF cefuroxime axetil 250 mg Tablet 250 mg PO BID Qty: 2 0RF vancomycin 125 mg capsule 125 mg PO Q6H 4 Days Qty: 16 0RF metoprolol succinate 50 mg Tablet Extended Release 24 Hr 100 mg PO Q12H Qty: 14 0RF Entresto 24-26 mg Tablet 1 tab PO BID Qty: 14 0RF torsemide 20 mg tablet 20 mg PO DAILY Qty: 14 0RF Continued multivitamin Tablet 1 tab PO QAM aspirin 81 mg Tablet,Delayed Release (Dr/Ec) 81 mg PO QAM omega 1-scr-wdv-fish oil [Fish Oil] 1,200 (144-216) mg Capsule 1 cap PO HS coQ10 (ubiquinol) 100 mg Capsule 100 mg PO QAM brimonidine-timolol 0.2-0.5 % drops 1 drp OPR BID Xarelto 20 mg tablet 20 mg PO QDD omeprazole 20 mg capsule,delayed release(DR/EC) 20 mg PO QAM metformin 500 mg tablet 500 mg PO BIDM Rx Instructions: take with morning and evening meal latanoprost 0.005 % drops 1 drp OPB HS Rx Instructions: both eyes cholecalciferol (vitamin D3) [Vitamin D3] 50 mcg (2,000 unit) Tablet 50 mcg PO QAM Repatha SureClick 140 mg/mL pen injector 140 mg SUBCUT .EVERY 14 DAYS Patient Comments: Takes and of each month benzonatate 100 mg capsule 100 mg PO TID PRN (Reason: Cough) Ozempic 2 mg/dose (8 mg/3 mL) pen injector 2 mg SUBCUT WK Rx Instructions: sundays ciclopirox 8 % Solution 1 applic TOPICAL HS digoxin [Digitek] 125 mcg (0.125 mg) Tablet 0.125 mg PO DAILY@1600 Qty: 30 0RF Discontinued metoprolol succinate 50 mg Tablet Extended Release 24 Hr 150 mg PO BID Qty: 180 0RF Discharge Orders: Discharge Order (Routine); Ordered 11/19/24 Ordered By: Neftaly Green Admission Data Admit Date/Time: 11/14/24 21:42 Attending Provider: Neftaly Green Admit Provider: Dewey Lopez Primary Care Provider: Jazmine Anguiano Other Providers: Dewey Lopez; Jennie Keating; Ed Lua; Jose Armando Rodríguez; Michael iVllegas; Harlan Aldridge; Farooq Quiroz; Justina Brower; Eva Guveara; Laurie Suárez; Jennie Rosales; Nils Das; Roger Sidhu; Anitha Monroy; Vale Willett; Ani Kent; Shelley Kilpatrick; Colby Robert; Keysha Moran; Lois Kline C
== END 2024-11-19 13:24 | disposition home or self-care (01) | DRG 872 ==
LOC: ED 16:35 → 2S 21:42